=== PATIENT | male | born 1955 | race Hispanic/Latino ===

== ENCOUNTER 2018-02-08 07:29 | Emergency (ER) | payer BC ==
[~2018-02-08] VITALS: Ht 170.2 cm; Wt 104.3 kg
[~2018-02-08 07:29] MED LIST: GABAPENTIN300 MG PO; IBUPROFEN PO; LISINOPRIL10 MG PO; LOVASTATIN40 MG PO; NAPROXEN500 MG PO; NORCO 7.5-3251 EACH PEG; OMEPRAZOLE MAGN20 MG PO; TAMSULOSIN HCL0.4 MG PO; TESTOSTERO200 MG/1 M IM; ZIOPTAN 0.00151 EACH OU
[2018-02-08 08:38] LABS: BASOPHILS % 0.2 % (0.0-1.0); EOSINOPHILS # (AUTO) 0.2 (0.0-0.4); EOSINOPHILS % 2.7 % (0.0-6.0); HEMATOCRIT 38.7 % (38.2-49.6); HEMOGLOBIN 13.6 g/dL (14.0-18.0); LYMPHOCYTES # (AUTO) 2.4 (1.0-3.2); LYMPHOCYTES % 27.3 % (18.0-39.1); MEAN CORPUSCULAR HEMOGLOBIN 30.6 pg (28-32); MEAN CORPUSCULAR HGB CONC 35.1 g/dL (31-35); MEAN CORPUSCULAR VOLUME 87.2 fL (81-99); MONOCYTES # (AUTO) 0.6 (0.2-0.8); MONOCYTES % 7.2 % (4.4-11.3); NEUTROPHILS # (AUTO) 5.5 (2.1-6.9); NEUTROPHILS % 62.1 % (38.7-80.0); PLATELET COUNT 170 x10e3/uL (140-360); RED BLOOD COUNT 4.44 x10e6/uL (4.3-5.7); RED CELL DISTRIBUTION WIDTH 12.9 % (11.7-14.4)
[2018-02-08 08:48] LABS: ALANINE AMINOTRANSFERASE 23 IU/L (0-55); ALBUMIN 3.7 g/dL (3.5-5.0); ALBUMIN/GLOBULIN RATIO 1.1 (0.8-2.0); ALKALINE PHOSPHATASE 73 IU/L (40-150); AMYLASE 27 U/L (25-125); ANION GAP 10.9 mmol/L (8-16); BLOOD UREA NITROGEN 18 mg/dL (7-26); BUN/CREATININE RATIO 16 (6-25); CALCIUM 9.3 mg/dL (8.4-10.2); CARBON DIOXIDE 26 mmol/L (22-29); CHLORIDE 103 mmol/L (98-107); CREATINE KINASE 146 IU/L (30-200); EST GLOMERULAR FILTRATION RATE > 60 ML/MIN (60-); GLUCOSE 120 mg/dL (74-118); LIPASE 14 U/L (8-78); POTASSIUM 3.9 mmol/L (3.5-5.1); SODIUM 136 mmol/L (136-145)
[2018-02-08 08:52] LABS: CLARITY,URINE CLEAR (CLEAR); COLOR,URINE YELLOW (YELLOW); KETONES,URINE NEGATIVE (NEGATIVE); LEUKOCYTE ESTERASE ,URINE NEGATIVE (NEGATIVE); NITRITE,URINE NEGATIVE (NEGATIVE); PROTEIN,URINE DIPSTICK NEGATIVE (NEGATIVE); URINE UROBILINOGEN 0.2 mg/dL (0.2 - 1)
[2018-02-08 08:53] LABS: BILIRUBIN,URINE NEGATIVE (NEGATIVE); EPITHELIAL CELLS,URINE FEW /LPF; WBC,URINE (MAN) 0-5 /HPF (0-5)
[2018-02-08 11:19] VITALS: BP 126/59
--- NOTE | 2018-02-08 11:27 | Diagnostic Imaging Report ---
HISTORY: Right upper quadrant pain TECHNIQUE: Selected images from limited abdominal ultrasound provided for INTERPRETATION: COMPARISON: None. FINDINGS: Pancreas: Visualized portions are normal. No ductal dilatation. Liver: Measures 15.0 cm in sagittal dimension. The echotexture is increased. No mass in the visualized portions. Portal Vein: Patent with hepatopetal flow on spectral Doppler interrogation.. Biliary Tree: No intrahepatic dilatation. Gallbladder: No evidence of gallstone, polyp or gallbladder wall thickening. CBD: 0.4 cm. Right Kidney: 11.3 cm in greatest length. The echotexture is normal. There is no evidence for mass. There is no collecting system dilatation or evidence of obstruction. No renal calculi evident. No adjacent free fluid or fluid collections. Visualized IVC and aorta are normal. There is no free fluid. IMPRESSION: 1. Increased hepatic echotexture suggestive of hepatocellular dysfunction, most commonly steatosis. 2. Normal gallbladder and biliary tree. Signed by: Dr. René Khan MD on 02/08/2018 11:24 AM
== END 2018-02-08 11:51 | disposition home or self-care (01) ==
LOC: ER 07:29
DX: R10.11 Right upper quadrant pain (principal); R10.13 Epigastric pain; R11.0 Nausea; I10 Essential (primary) hypertension; E78.5 Hyperlipidemia, unspecified; K21.9 Gastro-esophageal reflux disease without esophagitis
CPT/HCPCS: 36415; 76705; 80053; 81001; 82150; 82550; 82553; 83690; 84484; 85025; 94760; 99284

== ENCOUNTER 2020-04-29 23:22 | Emergency (ER) | payer BC, MEDICARE ==
[~2020-04-29] VITALS: Ht 167.6 cm; Wt 104.3 kg
--- NOTE | 2020-04-30 00:27 | Emergency Department Note ---
History of Present Illnes History of Present Illness Chief Complaint: COVID PUI History of Present Illness This is a 65 year old male REPORTS DX'D WITH COVID 19 AT [facility] TODAY, PT WITH C/O GENERALIZED BODY ACHES, COUGH, FEVER; RESP ARE EVEN AND UNLABORED, O2 SAT RA 96% . STATES HE WAS TOLD TO GO TO ER BY PERSON WHO CALLED HIM WITH HIS POSITIVE COVID 19 TEST. Historian: Patient Arrival Mode: Car Onset (how long ago): day(s) (7) Location: ALL OVER Quality: FEVER, CHILLS, BODY ACHES, COUGH, POSITIVE COVID 19 TEST Radiation: Reports non-radiation Severity: mild Onset quality: gradual Duration (how long): day(s) (7) Timing of current episode: constant Progression: unchanged Chronicity: new Context: Reports recent illness (TESTED POSITIVE FOR COVID, JUST GOT THE RESULTS) Relieving factors: none Exacerbating factors: none Associated symptoms: Reports cough, Reports fever/chills, Reports shortness of breath Treatments prior to arrival: none Past Medical/Family History Physician Review I have reviewed the patient's past medical and family history. Any updates have been documented here. Past Medical History Recent Fever: Yes Clinical Suspicion of Infectio: Yes New/Unexplained Change in Ment: No Past Medical History: Hypertension, GERD Other Medical History: URINARY URGENCY Past Surgical History: None Social History Smoking Cessation: Never Smoker Alcohol Use: None Physically hurt or threatened: No Family History Family history of heart diseas: No Other Last Tetanus: UNK Review of Systems Review of Systems Constitutional: Reports as per HPI EENTM: Reports no symptoms Cardiovascular: Reports no symptoms Respiratory: Reports as per HPI Gastrointestinal: Reports no symptoms Genitourinary: Reports no symptoms Musculoskeletal: Reports no symptoms Integumentary: Reports no symptoms Neurological: Reports no symptoms Psychological: Reports no symptoms Endocrine: Reports no symptoms Hematological/Lymphatic: Reports no symptoms Physical Exam Related Data Allergies: Coded Allergies: No Known Allergies (Unverified , 09/04/16) Triage Vital Signs Vital Signs Date Time Temp Pulse Resp B/P (MAP) Pulse Ox O2 Delivery O2 Flow Rate FiO2 04/30/20 00:00 99.4 64 17 110/52 96 Room Air Vital signs reviewed: Yes Physical Exam CONSTITUTIONAL Constitutional: Present well-developed, Present well-nourished HENT HENT: Present normocephalic, Present atraumatic, Present oropharynx clear /moist, Present nose normal HENT L/R: Present left ext ear normal, Present right ext ear normal EYES Eyes: Reports PERRL, Reports conjunctivae normal NECK Neck: Present ROM normal PULMONARY Pulmonary: Present effort normal, Present rhonchi (MILD AT BASES BILATERAL) CARDIOVASCULAR Cardiovascular: Present regular rhythm, Present heart sounds normal, Present capillary refill normal, Present normal rate GASTROINTESTINAL Abdominal: Present soft, Present nontender, Present bowel sounds normal GENITOURINARY Genitourinary: Present exam deferred SKIN Skin: Present warm, Present dry MUSCULOSKELETAL Musculoskeletal: Present ROM normal NEUROLOGICAL Neurological: Present alert, Present oriented x 3, Present no gross motor or sensory deficits PSYCHOLOGICAL Psychological: Present mood/affect normal, Present judgement normal Assessment & Plan Medical Decision Making [facility] PT WITH COVID 19 PT NOT IN RESPIRATORY DISTRESS, OXYGEN SATURATION 96% ON ROOM AIR PT DISCHARGED WITH ZPAK, INSTRUCTIONS TO SLEEP AND LAY ON SIDE OR STOMACH, NOT BACK INSTRUCTED TO RETURN IF SYMPTOMS GET WORSE Assessment & Plan Final Impression: (1) COVID-19 Depart Disposition: HOME, SELF-CARE Last Vital Signs Date Time Temp Pulse Resp B/P (MAP) Pulse Ox O2 Delivery O2 Flow Rate FiO2 04/30/20 00:00 99.4 64 17 110/52 96 Room Air Home Meds Reported Medications Hydrocodone Bit/Acetaminophen (NORCO 7.5-325 TABLET) 1 Each Tablet, 1-2 EA PEG Q6H PRN for PAIN, TAB 09/06/16 Lovastatin (LOVASTATIN) 40 Mg Tablet, 40 MG PO DAILY THERAPEUTICALLY SUBSTITUTED WITH SIMVASTATIN 20MG 09/04/16 Naproxen (NAPROXEN) 500 Mg Tablet, 500 MG PO BID 09/04/16 Testosterone Cypionate (TESTOSTERONE CYPIONATE) 200 Mg/1 Ml Vial, IM MONTHLY 09/04/16 Tamsulosin Hcl (TAMSULOSIN HCL) 0.4 Mg Cap.er.24h, 0.4 MG PO DAILY 09/04/16 Tafluprost/Pf (ZIOPTAN 0.0015% EYE DROPS) 1 Each Droperette, OU HS 09/04/16 Omeprazole Magnesium (OMEPRAZOLE MAGNESIUM) 20 Mg Capsule.dr, 20 MG PO DAILY 09/04/16 Lisinopril (LISINOPRIL) 10 Mg Tablet, 10 MG PO DAILY, #30 TAB 09/04/16 [Ibuprofen] No Conflict Check, 800 MG PO TID PRN for PAIN 09/04/16 Gabapentin (GABAPENTIN) 300 Mg Capsule, 300 MG PO TID, #60 CAP 09/04/16 LEELEE MARTINEZ MD Apr 30, 2020 00:27
== END 2020-04-30 00:30 | disposition home or self-care (01) ==
LOC: ER 23:50
DX: U07.1 COVID-19 (principal); R50.9 Fever, unspecified; R05 Cough; I10 Essential (primary) hypertension; K21.9 Gastro-esophageal reflux disease without esophagitis
CPT/HCPCS: 99282

== ENCOUNTER 2020-05-03 07:34 | Inpatient (IN) | payer MEDICARE, OTHER ==
[~2020-05-03] VITALS: Ht 167.6 cm; Wt 112.5 kg
[2020-05-03] MEDS ORDERED: CEFTRIAXONE SOD 1 GM/NS 50 ML 50 ML IV SCH (08:00)
[2020-05-03 08:25] LABS: BASOPHILS # (AUTO) 0.1 (0.0-0.1); BASOPHILS % 0.3 % (0.0-1.0); EOSINOPHILS # (AUTO) 0.1 (0.0-0.4); EOSINOPHILS % 0.3 % (0.0-6.0); HEMATOCRIT 40.6 % (38.2-49.6); HEMOGLOBIN 13.7 g/dL (14.0-18.0); LYMPHOCYTES # (AUTO) 1.3 (1.0-3.2); LYMPHOCYTES % 6.2 % (18.0-39.1); MEAN CORPUSCULAR HEMOGLOBIN 29.8 pg (28-32); MEAN CORPUSCULAR HGB CONC 33.7 g/dL (31-35); MEAN CORPUSCULAR VOLUME 88.3 fL (81-99); MONOCYTES # (AUTO) 1.2 (0.2-0.8); MONOCYTES % 5.7 % (4.4-11.3); NEUTROPHILS # (AUTO) 18.5 (2.1-6.9); NEUTROPHILS % 84.8 % (38.7-80.0); PLATELET COUNT 286 x10e3/uL (140-360); RED CELL DISTRIBUTION WIDTH 13.2 % (11.7-14.4)
[2020-05-03 08:53] LABS: ALBUMIN 3.1 g/dL (3.5-5.0); ALBUMIN/GLOBULIN RATIO 0.7 (0.8-2.0); ANION GAP 20.7 mmol/L (8-16); CALCIUM 8.4 mg/dL (8.4-10.2); CREATININE, SERUM 1.48 mg/dL (0.72-1.25); POTASSIUM 3.7 mmol/L (3.5-5.1)
[2020-05-03 09:02] LABS: CREATINE KINASE MB 2.3 ng/mL (0-5.0)
[2020-05-03 09:07] LABS: INR 1.46; PROTHROMBIN TIME 18.7 seconds (11.9-14.5)
[2020-05-03 09:08] LABS: PARTIAL THROMBOPLASTIN TIME 30.9 seconds (23.8-35.5)
[2020-05-03] MEDS: AZITHROMYCIN 500MG/NS 250 ML 250 ML IV SCH (09:24)
--- NOTE | 2020-05-03 09:27 | Diagnostic Imaging Report ---
EXAMINATION: CHEST SINGLE (PORTABLE) INDICATION: Shortness of breath COMPARISON: None FINDINGS: LINES/TUBES:EKG leads overlie the chest. LUNGS:The lungs are moderately inflated. Diffuse bilateral hazy and patchy airspace opacities. PLEURA:No pleural effusion or pneumothorax. MEDIASTINUM:The cardiomediastinal silhouette appears normal in size and shape. BONES/SOFT TISSUES:No acute osseous injury. ABDOMEN:No free air under the diaphragm. IMPRESSION: Diffuse bilateral hazy and patchy airspace opacities compatible with pneumonia in the proper clinical setting. Signed by: Nicki Durham MD on 05/03/2020 9:24 AM
[2020-05-03] MEDS ORDERED: DEXAMETHASONE SOD PHOS 10 MG/1 ML VIAL IV ONE (09:30)
[2020-05-03] MEDS ORDERED: DEXAMETHASONE SOD PHOS 10 MG/1 ML VIAL ONE (12:36)
[2020-05-03] MEDS ORDERED: HYDRALAZINE HCL 20 MG/ML VIAL IV STA (12:40)
--- NOTE | 2020-05-03 13:01 | NUR ---
Non-rebreather placed over patient's vapotherm oxygen percentage now 98.
--- NOTE | 2020-05-03 14:48 | Emergency Department Note ---
History of Present Illnes History of Present Illness Chief Complaint: COVID PUI History of Present Illness This is a 65 year old male C/O SOB X 1 WEEK STATES HE'S ALREADY TESTED POSITIVE FOR COVID C/O MUSCLE ACHES, COUGH, CHILLS, FEVER. SOB X 2 DAYS WORSENING. SEEN BY DR VENCES PT SPO2 IN TRIAGE 72% TAKEN STRAIGHT TO ROOM 3. Historian: Patient Arrival Mode: Car [employer] Plant Supervisor Required: No Onset (how long ago): week(s) (1) Radiation: Reports non-radiation Severity: severe Onset quality: gradual Timing of current episode: constant Progression: worsening Chronicity: new Context: Denies recent illness Relieving factors: none Exacerbating factors: none Associated symptoms: Reports denies other symptoms Treatments prior to arrival: none Past Medical/Family History Physician Review I have reviewed the patient's past medical and family history. Any updates have been documented here. Past Medical History Recent Fever: Yes Clinical Suspicion of Infectio: Yes New/Unexplained Change in Ment: No Past Medical History: Hypertension, GERD, Hyperlipedemia Other Medical History: URINARY URGENCY Past Surgical History: None Social History Smoking Cessation: Never Smoker Counseling Performed: No Alcohol Use: None Any Illegal Drug Use: No TB Exposure/Symptoms: No Physically hurt or threatened: No Family History Family history of heart diseas: No Other Last Tetanus: UNK Any Pre-Existing Lines (PICC,: No Review of Systems Review of Systems Constitutional: Reports as per HPI EENTM: Reports no symptoms Cardiovascular: Reports no symptoms Respiratory: Reports as per HPI Gastrointestinal: Reports no symptoms Genitourinary: Reports no symptoms Musculoskeletal: Reports no symptoms Integumentary: Reports no symptoms Neurological: Reports no symptoms Psychological: Reports no symptoms Endocrine: Reports no symptoms Hematological/Lymphatic: Reports no symptoms Physical Exam Related Data Allergies: Coded Allergies: No Known Allergies (Unverified , 09/04/16) Triage Vital Signs Vital Signs Date Time Temp Pulse Resp B/P (MAP) Pulse Ox O2 Delivery O2 Flow Rate FiO2 05/03/20 07:49 98.8 83 32 147/56 83 Nasal Cannula 3.0 Vital signs reviewed: Yes Physical Exam CONSTITUTIONAL Constitutional: Present distressed HENT HENT: Present normocephalic, Present atraumatic, Present oropharynx clear/moist, Present nose normal HENT L/R: Present left ext ear normal, Present right ext ear normal EYES Eyes: Reports PERRL, Reports conjunctivae normal NECK Neck: Present ROM normal PULMONARY Pulmonary: Present respiratory distress, Present other (DECR BS'S BASES) CARDIOVASCULAR Cardiovascular: Present regular rhythm, Present heart sounds normal, Present capillary refill normal, Present tachycardia GASTROINTESTINAL Abdominal: Present soft, Present nontender, Present bowel sounds normal GENITOURINARY Genitourinary: Present exam deferred SKIN Skin: Present warm, Present dry MUSCULOSKELETAL Musculoskeletal: Present ROM normal NEUROLOGICAL Neurological: Present alert, Present oriented x 3, Present no gross motor or sensory deficits PSYCHOLOGICAL Psychological: Present mood/affect normal, Present judgement normal Results Laboratory Result Diagram: 05/03/20 0802 05/03/20 0802 Laboratory Laboratory Tests Test 05/03/20 08:40 05/03/20 08:02 White Blood Count 21.75 x10e3/uL (4.8-10.8) Red Blood Count 4.60 x10e6/uL (4.3-5.7) Hemoglobin 13.7 g/dL (14.0-18.0) Hematocrit 40.6 % (38.2-49.6) Mean Corpuscular Volume 88.3 fL (81-99) Mean Corpuscular Hemoglobin 29.8 pg (28-32) Mean Corpuscular Hemoglobin Concent 33.7 g/dL (31-35) Red Cell Distribution Width 13.2 % (11.7-14.4) Platelet Count 286 x10e3/uL (140-360) Neutrophils (%) (Auto) 84.8 % (38.7-80.0) Lymphocytes (%) (Auto) 6.2 % (18.0-39.1) Monocytes (%) (Auto) 5.7 % (4.4-11.3) Eosinophils (%) (Auto) 0.3 % (0.0-6.0) Basophils (%) (Auto) 0.3 % (0.0-1.0) Neutrophils # (Auto) 18.5 (2.1-6.9) Lymphocytes # (Auto) 1.3 (1.0-3.2) Monocytes # (Auto) 1.2 (0.2-0.8) Eosinophils # (Auto) 0.1 (0.0-0.4) Basophils # (Auto) 0.1 (0.0-0.1) Absolute Immature Granulocyte (auto 0.58 x10e3/uL (0-0.1) Prothrombin Time 18.7 seconds (11.9-14.5) Prothromb Time International Ratio 1.46 Activated Partial Thromboplast Time 30.9 seconds (23.8-35.5) Sodium Level 138 mmol/L (136-145) Potassium Level 3.7 mmol/L (3.5-5.1) Chloride Level 101 mmol/L (98-107) Carbon Dioxide Level 20 mmol/L (22-29) Anion Gap 20.7 mmol/L (8-16) Blood Urea Nitrogen 35 mg/dL (7-26) Creatinine 1.48 mg/dL (0.72-1.25) Estimat Glomerular Filtration Rate 48 ML/MIN (60-) BUN/Creatinine Ratio 24 (6-25) Glucose Level 151 mg/dL (74-118) Calcium Level 8.4 mg/dL (8.4-10.2) Total Bilirubin 0.7 mg/dL (0.2-1.2) Aspartate Amino Transf (AST/SGOT) 61 IU/L (5-34) Alanine Aminotransferase (ALT/SGPT) 40 IU/L (0-55) Alkaline Phosphatase 56 IU/L (40-150) Creatine Kinase 183 IU/L (30-200) Creatine Kinase MB 2.30 ng/mL (0-5.0) Troponin I 0.020 ng/mL (0-0.300) B-Type Natriuretic Peptide 137.9 pg/mL (0-100) Total Protein 7.6 g/dL (6.5-8.1) Albumin 3.1 g/dL (3.5-5.0) Globulin 4.5 g/dL (2.3-3.5) Albumin/Globulin Ratio 0.7 (0.8-2.0) Lab results reviewed: Yes Imaging Imaging results reviewed: Yes Impressions EXAMINATION: CHEST SINGLE (PORTABLE) INDICATION: Shortness of breath COMPARISON: None FINDINGS: LINES/TUBES:EKG leads overlie the chest. LUNGS:The lungs are moderately inflated. Diffuse bilateral hazy and patchy airspace opacities. PLEURA:No pleural effusion or pneumothorax. MEDIASTINUM:The cardiomediastinal silhouette appears normal in size and shape. BONES/SOFT TISSUES:No acute osseous injury. ABDOMEN:No free air under the diaphragm. IMPRESSION: Diffuse bilateral hazy and patchy airspace opacities compatible with pneumonia in the proper clinical setting. Signed by: Nicki Durham MD on 05/03/2020 9:24 AM Procedures 12 Lead ECG Interpretation ECG Interpretation : ECG: ECG 1 Gelatin Plant Supervisor: Interpreted by ED physician Date: May 03, 2020 Time: 07:56 Rhythm: sinus rhythm Rate: normal (72) QRS axis: normal Conduction: intraventricular conduction delay ST segments normal: Yes T waves normal: Yes Clinical Impression: normal ECG Critical Care Time Total Critical Care Time (min): 30 Critical care time exclusive o: separately billable procedures Critcal care necessary due to: respiratory failure Critcal care time spent by me: discussion w consultants, discussion w primary provider, evaluation patient response to tx, order/perform tx or interventions, order/review laboratory studies, order/review radiographic studies, pulse oximetry, re-evaluation of patient condition Assessment & Plan Medical Decision Making MDM CBC, CHEM, CARDIACS, COVID, CX'S, CXR - R/O COVID/PNEUMONIA, STEMI/NSTEMI, RENAL INSUFF Assessment & Plan Final Impression: (1) Pneumonia due to COVID-19 virus (2) Hypoxia Depart Disposition: ADMITTED Last Vital Signs Date Time Temp Pulse Resp B/P (MAP) Pulse Ox O2 Delivery O2 Flow Rate FiO2 05/03/20 12:50 182/90 05/03/20 12:45 67 35 90 05/03/20 12:36 40.0 05/03/20 08:46 98.7 05/03/20 07:49 Nasal Cannula Home Meds Reported Medications Hydrocodone Bit/Acetaminophen (NORCO 7.5-325 TABLET) 1 Each Tablet, 1-2 EA PEG Q6H PRN for PAIN, TAB 09/06/16 Lovastatin (LOVASTATIN) 40 Mg Tablet, 40 MG PO DAILY THERAPEUTICALLY SUBSTITUTED WITH SIMVASTATIN 20MG 09/04/16 Naproxen (NAPROXEN) 500 Mg Tablet, 500 MG PO BID 09/04/16 Testosterone Cypionate (TESTOSTERONE CYPIONATE) 200 Mg/1 Ml Vial, IM MONTHLY 09/04/16 Tamsulosin Hcl (TAMSULOSIN HCL) 0.4 Mg Cap.er.24h, 0.4 MG PO DAILY 09/04/16 Tafluprost/Pf (ZIOPTAN 0.0015% EYE DROPS) 1 Each Droperette, OU HS 09/04/16 Omeprazole Magnesium (OMEPRAZOLE MAGNESIUM) 20 Mg Capsule.dr, 20 MG PO DAILY 09/04/16 Lisinopril (LISINOPRIL) 10 Mg Tablet, 10 MG PO DAILY, #30 TAB 09/04/16 [Ibuprofen] No Conflict Check, 800 MG PO TID PRN for PAIN 09/04/16 Gabapentin (GABAPENTIN) 300 Mg Capsule, 300 MG PO TID, #60 CAP 09/04/16 Medications in the ED Ceftriaxone Sodium 50 ml @ 100 mls/hr Q24H IV Last administered on 05/03/20at 09:23; Admin Dose 100 MLS/HR; Start 05/03/20 at 08:00; Stop 05/10/20 at 07:59 Azithromycin 250 ml @ 250 mls/hr Q24H IV Last administered on 05/03/20at 09:24; Admin Dose 250 MLS/HR; Start 05/03/20 at 08:30; Stop 05/10/20 at 08:29 Dexamethasone Sodium Phosphate 10 mg ONCE ONCE IV Last administered on 05/03/20at 12:35; Admin Dose 10 MG; Start 05/03/20 at 09:30; Stop 05/03/20 at 10:11; Status DC Dexamethasone Sodium Phosphate 10 mg STK-MED ONCE .ROUTE ; Start 05/03/20 at 12:36; Stop 05/03/20 at 12:30; Status DC Hydralazine HCl 10 mg NOW STAT IV Last administered on 05/03/20at 12:50; Admin Dose 10 MG; Start 05/03/20 at 12:40; Stop 05/03/20 at 12:46; Status DC NIKHIL VENCES MD May 03, 2020 14:48
[2020-05-03] MEDS ORDERED: SODIUM CHLORIDE 0.9% 1000ML 1,000 ML IV SCH (15:30)
[2020-05-03] MEDS: ENOXAPARIN SOD INJ 40 MG/0.4 ML SYR SC SCH (16:30)
[2020-05-03] MEDS ORDERED: ALBUTEROL SULFATE HFA 8GM INHALATION AEROSOL INH PRN (18:15)
--- NOTE | 2020-05-03 18:49 | NUR ---
REPORT GIVEN TO ALVIN ROCK
--- NOTE | 2020-05-03 19:25 | Consultation ---
DATE OF CONSULTATION: 05/03/2020 PULMONARY CRITICAL CARE CONSULTATION: CHIEF COMPLAINT: Dyspnea and fevers. HISTORY OF PRESENT ILLNESS: The patient is a 65-year-old man. He reports a history of difficulty breathing and chest congestion. He has noted some fevers as well. He has a cough. He came to the emergency department and was found to have bilateral pulmonary infiltrates and nasal swab suggestive of COVID. PAST MEDICAL HISTORY: 1. Prostatic hypertrophy. 2. Hypertension. 3. No prior asthma. 4. No prior cardiac problems. 5. No prior diabetes. ALLERGIES: THERE ARE NO KNOWN DRUG ALLERGIES. SOCIAL HISTORY: The patient is not a smoker. He has never been a drinker. REVIEW OF SYSTEMS: He reports some fevers. He has some malaise. He has no headache. There is no neck pain. He has no chest pain. There is some dyspnea. He has some cough. There is no abdominal pain. He has no nausea or vomiting. He has no leg edema. PHYSICAL EXAMINATION: VITAL SIGNS: The patient is afebrile. The blood pressure is 176/81 and the pulse is 65. Respiratory rate is in the 30s. Oxygen saturation is 95%. He is on a Vapotherm with 40 L and 100%. HEENT: Shows no facial swelling or erythema. CARDIAC: Reveals regular rate and rhythm with normal S1 and S2. LUNGS: Auscultation of lungs reveals crackles and rhonchi bilaterally. There is no wheezing. ABDOMEN: Soft and nontender. There is no rebound or guarding. EXTREMITIES: Shows no leg edema or calf tenderness. There is no cyanosis or clubbing. SKIN: Shows no rashes. NEUROLOGIC: Shows no focal abnormalities. LABORATORY DATA: White blood cell count is 21.7 and hemoglobin is 13.7. The platelet count is 286. BUN to creatinine ratio is 35 to 1.48 and the carbon dioxide is 20. Anion gap is increased to 20.7. The blood sugar is 151. The albumin is 3.1. RADIOGRAPHIC DATA: Chest x-ray shows bilateral infiltrates, suggestive of COVID pneumonia. IMPRESSION: 1. Acute respiratory failure. 2. Viral pneumonia and COVID-19. 3. Acute kidney injury. 4. Anion gap acidosis. 5. Prostatic hypertrophy. 6. Hypertension. PLAN: 1. Judicious use of IV fluids. 2. Dexamethasone 6 mg daily. 3. Antibiotics to cover for superimposed bacterial pneumonia. 4. Lovenox. 5. Albuterol inhaler. 6. Monitor renal function. MD FRANCES Mae/MODL /[id number]
[2020-05-03 19:40] LABS: CREATINE KINASE MB 1.5 ng/mL (0-5.0)
--- NOTE | 2020-05-03 20:21 | Consultation ---
DATE OF CONSULTATION: 05/03/2020 HISTORY OF PRESENT ILLNESS: Mr. Bob is a 65-year-old male, who comes to the emergency room with shortness of breath and cough for a week. He was positive for COVID-19. He also has just muscle aches and pain and cough. The patient comes in because he was not feeling well. His O2 saturation was 72%. He was admitted and started on oxygen. He is feeling better now. The patient, who is currently on 15 L. The patient is telling me he has been sick for 2 weeks before he came here. PAST MEDICAL HISTORY: He denies. PAST SURGICAL HISTORY: He denies. ALLERGIES: NKA. SOCIAL HISTORY: There is no smoking, drug abuse, or alcohol abuse. PHYSICAL EXAMINATION: GENERAL: Currently alert and oriented. Does not seem to be in acute distress. VITAL SIGNS: Stable, currently afebrile. HEENT: He is not icteric. NECK: Supple. CHEST: Crackles bilateral. IMPRESSION: COVID-19, concerned superimposed bacterial pneumonia. We will put him on Rocephin 1 g daily for 5 days, azithromycin 500 mg daily for 3 days, Decadron 6 mg daily, oxygen as needed. Decadron will be for 10 days. We will also give him Lovenox 0.5 mg/kg q.12 hours. q.12. It is too late for remdesivir and convalescent plasma. We will follow. MD JOSE Garay/MIKE /[id number]
[2020-05-03] MEDS ORDERED: GABAPENTIN 300 MG CAP PO SCH (21:00)
[2020-05-03] MEDS ORDERED: ZOLPIDEM TARTRATE 5 MG TAB PO PRN (21:00)
[2020-05-03] MEDS: MEROPENEM 1GM 100 ML IV SCH (21:36)
[2020-05-03] MEDS: GABAPENTIN 100 MG CAP PO SCH (21:36)
--- NOTE | 2020-05-04 01:07 | History and Physical ---
PRIMARY CARE DOCTOR: Beau Mcknight MD. CHIEF COMPLAINT: Shortness of breath. HISTORY OF PRESENT ILLNESS: This is a 65-year-old male, who has been sick for 2 weeks now. The patient has been coughing, not so much fever. Apparently, the is also coughing at home. However, today, the patient got more short of breath, therefore the patient presented to the emergency room. Denies chest pain. No nausea, vomiting. No diarrhea. PAST MEDICAL AND SURGICAL HISTORY: 1. Hypertension. 2. Hyperlipidemia. 3. Likely benign prostatic hypertrophy. MEDICATIONS: Please see medication reconciliation form. ALLERGIES: NONE. SOCIAL HISTORY: Does not smoke. FAMILY HISTORY: Diabetes. REVIEW OF SYSTEMS: A 10-point review of systems obtained and nothing else is significant other than what is stated in HPI. PHYSICAL EXAMINATION: VITAL SIGNS: Temperature 98.7, pulse 67, respiratory rate anywhere from 16-36, blood pressure 150/73. GENERAL: Some mild respiratory distress. SKIN: No rash. HEENT: Anicteric. Oropharynx is clear. LUNGS: Decreased. HEART: Regular rate and rhythm. Normal S1 and S2. GI: Abdomen is soft, nondistended. NEUROLOGIC: Alert and oriented x3. Cranial nerves II through XII grossly intact. PSYCHIATRIC: No hallucination. MUSCULOSKELETAL: Painless range of motion in joints. LABORATORY DATA: Laboratory [place], white count 21.75, hemoglobin 13.7, platelet count 286. INR is 1.46, PTT is 30.9, creatinine is 1.48. COVID-19 is positive. Chest x-ray is compatible with pneumonia. ASSESSMENT AND PLAN: 1. Coronavirus disease-2019 pneumonia with hypoxia. Consulted both Pulmonary and Infectious Disease. At this time, the patient will be on Remdesivir, Decadron, IV meropenem and IV azithromycin. We will continue to support him with oxygen. 2. Hypertension. Currently his blood pressure is acceptable. 3. Gastrointestinal and deep vein thrombosis prophylaxes. Lovenox 40 mg daily. Stacyching MD ASHWIN Jean-Baptiste/MIKE /[id number] cc: Beau Mcknight MD [facility]
[2020-05-04 06:50] LABS: BASOPHILS % 0.1 % (0.0-1.0); HEMATOCRIT 37.8 % (38.2-49.6); HEMOGLOBIN 12.9 g/dL (14.0-18.0); LYMPHOCYTES # (AUTO) 1.1 (1.0-3.2); LYMPHOCYTES % 6.7 % (18.0-39.1); MEAN CORPUSCULAR HEMOGLOBIN 30.6 pg (28-32); MEAN CORPUSCULAR HGB CONC 34.1 g/dL (31-35); MEAN CORPUSCULAR VOLUME 89.6 fL (81-99); MONOCYTES # (AUTO) 0.9 (0.2-0.8); MONOCYTES % 5.3 % (4.4-11.3); NEUTROPHILS # (AUTO) 14.3 (2.1-6.9); NEUTROPHILS % 84.9 % (38.7-80.0); PLATELET COUNT 253 x10e3/uL (140-360); RED BLOOD COUNT 4.22 x10e6/uL (4.3-5.7); RED CELL DISTRIBUTION WIDTH 13.2 % (11.7-14.4)
--- NOTE | 2020-05-04 07:14 | Diagnostic Imaging Report ---
Examination: Single AP view of the chest. COMPARISON: Portable chest 05/03/2020 INDICATION: Pneumonia, COVID + IMPRESSION: 1. Lines and Tubes: None 2. No interval change in diffuse bilateral interstitial and alveolar opacities, consistent with multifocal pneumonia. 3. Cardiomediastinal silhouette is normal. Pulmonary vasculature is normal. 4. No acute bony abnormalities. Signed by: Dr. Cabrera Roberson M.D. on 05/04/2020 7:11 AM
[2020-05-04 07:25] LABS: ALANINE AMINOTRANSFERASE 35 IU/L (0-55); ALBUMIN 2.7 g/dL (3.5-5.0); ALBUMIN/GLOBULIN RATIO 0.6 (0.8-2.0); ALKALINE PHOSPHATASE 55 IU/L (40-150); ANION GAP 14.3 mmol/L (8-16); BLOOD UREA NITROGEN 29 mg/dL (7-26); BUN/CREATININE RATIO 34 (6-25); CALCIUM 8.4 mg/dL (8.4-10.2); CARBON DIOXIDE 24 mmol/L (22-29); CHLORIDE 107 mmol/L (98-107); CREATININE, SERUM 0.85 mg/dL (0.72-1.25); EST GLOMERULAR FILTRATION RATE > 60 ML/MIN (60-); GLUCOSE 138 mg/dL (74-118); POTASSIUM 4.3 mmol/L (3.5-5.1); SODIUM 141 mmol/L (136-145)
[2020-05-04] MEDS: TAMSULOSIN HCL 0.4 MG CAP PO SCH (08:30)
[2020-05-04] MEDS: GABAPENTIN 100 MG CAP PO SCH ×3 (08:30→21:37)
[2020-05-04] MEDS: MEROPENEM 1GM 100 ML IV SCH ×2 (08:30→16:30)
[2020-05-04] MEDS ORDERED: SIMVASTATIN 20 MG TAB PO SCH (09:00)
[2020-05-04] MEDS: AZITHROMYCIN 500MG/NS 250 ML 250 ML IV SCH (09:30)
--- NOTE | 2020-05-04 10:02 | Progress Note ---
DATE: 05/04/2020 SUBJECTIVE: The patient is still on a Vapotherm with a non-rebreather. He notes some sore throat. He also complains of some headache. He does not have abdominal pain. He has no nausea or vomiting. PHYSICAL EXAMINATION: VITAL SIGNS: The blood pressure is 126/58 and saturation is 95%, his pulse is 50 to 60 and his respiratory rate is 30. HEENT: Shows no facial swelling or erythema. LYMPHATIC: Shows no submandibular, cervical, or supraclavicular adenopathy. CARDIAC: Reveals regular rate and rhythm with normal S1, S2. LUNGS: Auscultation of the lungs shows crackles in both lung vazquez. There is no wheezing. ABDOMEN: Soft and nontender. There is no rebound or guarding. EXTREMITIES: Shows no leg edema or calf tenderness. There is no cyanosis or clubbing. SKIN: Shows no rashes. NEUROLOGICAL: Shows no focal abnormalities. LABORATORY DATA: White blood cell count is 16.8 and hemoglobin is 12.9. The platelet count is 253. The BUN to creatinine ratio is 29 to 0.85. Other electrolytes are within normal limits. Albumin is 2.7. RADIOGRAPHIC DATA: Chest x-ray shows diffuse bilateral infiltrates. IMPRESSION: 1. Acute respiratory failure. 2. Viral pneumonia and COVID-19 infection. 3. Hepatic hypertrophy. 4. Acute kidney injury. 5. Hypertension. PLAN: 1. Continue current antibiotics. 2. Continue Vapotherm and non-rebreather. 3. Monitor blood sugars. 4. Lovenox. 5. Dexamethasone. Manuel Quigley MD [facility]/MODL /[id number]
[2020-05-04 10:28] LABS: CLARITY,URINE CLEAR (CLEAR); COLOR,URINE YELLOW (YELLOW)
[2020-05-04 10:29] LABS: BILIRUBIN,URINE NEGATIVE (NEGATIVE); LEUKOCYTE ESTERASE ,URINE NEGATIVE (NEGATIVE); NITRITE,URINE NEGATIVE (NEGATIVE); PROTEIN,URINE DIPSTICK NEGATIVE (NEGATIVE); URINE UROBILINOGEN 0.2 mg/dL (0.2 - 1)
[2020-05-04 10:41] LABS: BACTERIA,URINE FEW /HPF; EPITHELIAL CELLS,URINE RARE /LPF; RBC,URINE 0-5 /HPF (0-5); WBC,URINE (MAN) 0-5 /HPF (0-5)
[2020-05-04 11:17] LABS: KETONES,URINE NEGATIVE (NEGATIVE)
--- NOTE | 2020-05-04 13:00 | NUR ---
Spoke with patient's daughter who wanted an updated on patient's condition.
[2020-05-04] MEDS ORDERED: DEXAMETHASONE SOD PHOS 10 MG/1 ML VIAL IV SCH (14:00)
--- NOTE | 2020-05-04 14:20 | Progress Note ---
DATE: 05/04/2020 SUBJECTIVE: The patient is seen and evaluated in the ER. The patient is currently on Vapotherm 40 at 100% and also on non-rebreather. Clinically, seems to be alert and oriented, responds appropriate only, has improved. His saturation is between 93-97%, which seems to be improved from yesterday slightly or maybe no significant change. MEDICATIONS: Reviewed. From ID point of view, the patient is on Zithromax, Merrem, and Lovenox. LABORATORY STUDIES: White count of 6.82 down from 21.75, hemoglobin of 12.9 with a platelet 253. Sodium 141, potassium 4.3, and creatinine 0.85. Serology; coronavirus PCR detected on 05/03. MICROBIOLOGY: Blood culture negative so far. RADIOLOGY STUDIES: Chest x-ray from today showed no interval change in diffuse bilateral interstitial alveolar opacities consistent with multifocal pneumonia. PHYSICAL EXAMINATION: VITAL SIGNS: Temperature is 98.5, pulse is 52, respirations 33-24 with a blood pressure of 155/68. GENERAL: Alert and oriented, supine position in bed, obese with a BMI of 37.1. Oxygen supplement as mentioned above. CV: S1-S2. CHEST: Equal expansion. Decreased breath sounds. ABDOMEN: Soft, obese, nontender. HEENT: Moist. No pallor. No JVD. Extremities: Weak, moves all. ASSESSMENT AND PLAN: 1. Coronavirus disease-19 pneumonia. 2. Concern superimposed bacterial pneumonia. Continue with antibiotics, Rocephin changed to meropenem by Pulmonology, remains on Lovenox. We will add vitamin C and D. He remains on dexamethasone. Monitor the patient clinically. Follow with the labs. Further management of this patient is based on daily findings on laboratory and physical examination. Dictated by Nikolay Hicks PA-C (Al) Rocío Robertson MD /MODL /[id number]
[2020-05-04] MEDS: DEXAMETHASONE SOD PHOS INJ 4 MG/ML VIAL IV SCH (15:00)
[2020-05-04] MEDS: ENOXAPARIN SOD INJ 40 MG/0.4 ML SYR SC SCH (17:35)
--- NOTE | 2020-05-04 18:48 | NUR ---
report given to Harlan ROCK
--- NOTE | 2020-05-04 19:36 | NUR ---
PT RESTING WELL ON HOSPITAL BED, NAD; WOB REMAINS THE SAME, WITH SPO2 IN MID 90'S, PT REMAINS ON VAPOTHERM AT 40 AND 100% WITH NRB PLACED OVER THAT AT 15L; SKIN WARM/DRY, AFEBRILE; AWARE OF CURRENT POC AND BED STATUS; DENIES ANY C/O, CALL LIGHT IN REACH, WILL CONTINUE TO MONITOR.
[2020-05-04] MEDS: SIMVASTATIN 40 MG TAB PO SCH (21:37)
--- NOTE | 2020-05-04 21:41 | NUR ---
PT PRONEKathie AT THIS TIME, WILL CONTINUE TO MONITOR.
--- NOTE | 2020-05-04 23:57 | Progress Note ---
DATE: 05/04/2020 SUBJECTIVE: He feels his breathing is a little better. OBJECTIVE: VITAL SIGNS: Temperature 98.5, pulse 48, respiratory rate 33, blood pressure 135/83. GENERAL: No acute distress, SKIN: No rash. LUNGS: Decreased breath sounds. HEART: Bradycardic. Normal S1, S2. GI: Soft, nondistended. NEUROLOGIC: Alert and oriented x3. PSYCHIATRIC: No depression. LABORATORY DATA: Laboratory moctezuma, white count 16.8, hemoglobin 12.9, platelet count 253, creatinine 0.85. Troponins are all negative. Chest x-ray, no interval change. ASSESSMENT AND PLAN: 1. Acute respiratory failure due to coronavirus disease-2019 pneumonia. His white count is better. We will continue azithromycin, meropenem, Decadron per Pulmonary and Infectious Disease. 2. Acute kidney injury, resolved. 3. Gastrointestinal and deep vein thrombosis prophylaxes. Continue Lovenox. MD ASHWIN Chavez/MIKE /[id number]
[2020-05-05] MEDS: MEROPENEM 1GM 100 ML IV SCH ×4 (03:03→18:52)
[2020-05-05 05:55] LABS: BASOPHILS % 0.2 % (0.0-1.0); HEMOGLOBIN 13.4 g/dL (14.0-18.0); LYMPHOCYTES # (AUTO) 1.3 (1.0-3.2); LYMPHOCYTES % 6.7 % (18.0-39.1); MEAN CORPUSCULAR HEMOGLOBIN 31.5 pg (28-32); MEAN CORPUSCULAR HGB CONC 34.4 g/dL (31-35); MEAN CORPUSCULAR VOLUME 91.5 fL (81-99); MONOCYTES # (AUTO) 0.7 (0.2-0.8); MONOCYTES % 3.4 % (4.4-11.3); NEUTROPHILS # (AUTO) 16.5 (2.1-6.9); NEUTROPHILS % 85.7 % (38.7-80.0); PLATELET COUNT 258 x10e3/uL (140-360); RED BLOOD COUNT 4.26 x10e6/uL (4.3-5.7); RED CELL DISTRIBUTION WIDTH 13.3 % (11.7-14.4)
[2020-05-05 06:33] LABS: ALANINE AMINOTRANSFERASE 30 IU/L (0-55); ALBUMIN 2.7 g/dL (3.5-5.0); ALBUMIN/GLOBULIN RATIO 0.6 (0.8-2.0); ALKALINE PHOSPHATASE 70 IU/L (40-150); ANION GAP 12.6 mmol/L (8-16); BLOOD UREA NITROGEN 26 mg/dL (7-26); BUN/CREATININE RATIO 33 (6-25); CALCIUM 8.7 mg/dL (8.4-10.2); CARBON DIOXIDE 26 mmol/L (22-29); CHLORIDE 104 mmol/L (98-107); CREATININE, SERUM 0.79 mg/dL (0.72-1.25); EST GLOMERULAR FILTRATION RATE > 60 ML/MIN (60-); GLUCOSE 131 mg/dL (74-118); POTASSIUM 4.6 mmol/L (3.5-5.1); SODIUM 138 mmol/L (136-145)
--- NOTE | 2020-05-05 07:00 | NUR ---
REPORT TO SHWETA URBINA.
--- NOTE | 2020-05-05 07:33 | Diagnostic Imaging Report ---
Examination: Single AP view of the chest. COMPARISON: 05/04/2020 INDICATION: Shortness of breath, COVID IMPRESSION: 1. Lines and Tubes: None 2. No interval change in diffuse bilateral interstitial and alveolar opacities, consistent with multifocal pneumonia. 3. Cardiomediastinal silhouette is normal. Pulmonary vasculature is normal. 4. No acute bony abnormalities. Signed by: Dr. Cabrera Roberson M.D. on 05/05/2020 7:29 AM
[2020-05-05] MEDS: AZITHROMYCIN 500MG/NS 250 ML 250 ML IV SCH (08:45)
[2020-05-05] MEDS: TAMSULOSIN HCL 0.4 MG CAP PO SCH (10:55)
--- NOTE | 2020-05-05 11:23 | NUR ---
Pt placed in prone position, noted thick green sputum. Pt provided yankeur to suction sputum. Pt is currently on Vapotherm @ 40liters/100%
[2020-05-05] MEDS: GABAPENTIN 100 MG CAP PO SCH ×2 (15:35→18:52)
[2020-05-05] MEDS: DEXAMETHASONE SOD PHOS INJ 4 MG/ML VIAL IV SCH (15:35)
--- NOTE | 2020-05-05 16:31 | Progress Note ---
DATE: 05/05/2020 SUBJECTIVE: Mr. Bob remains in the ER holding. He seems to be doing good and he is in a prone position now. He is feeling better. MEDICATIONS: He is currently on Flomax, azithromycin, Zocor, Neurontin, Ventolin, Lovenox, dexamethasone, meropenem. LABORATORY DATA: His white count is 19.23 and hemoglobin 13. His sodium 138, potassium 4.6, and creatinine 0.79. PHYSICAL EXAMINATION: GENERAL: He is currently alert and oriented. VITAL SIGNS: Stable. Heart rate 51, respiration 33, blood pressure 158/78. HEENT: Not icteric. NECK: Supple. CHEST: Few crackles. HEART: S1 and S2. No S3, S4, or murmur. ABDOMEN: Soft. IMPRESSION: Respiratory failure and COVID-19, more than 2 weeks illness. PLAN: To continue as ordered. MD JOSE Garay/MIKE /[id number]
[2020-05-05] MEDS: ENOXAPARIN SOD INJ 40 MG/0.4 ML SYR SC SCH (18:52)
[2020-05-05] MEDS: SIMVASTATIN 40 MG TAB PO SCH (21:54)
--- NOTE | 2020-05-05 23:04 | Progress Note ---
DATE: 05/05/2020 SUBJECTIVE: The patient is afebrile. He still has some dyspnea and tachypnea. He remains on a Vapotherm with 40 L and 100%. He was seen by Cardiology. Apparently, he had a slightly decreased ejection fraction. PHYSICAL EXAMINATION: VITAL SIGNS: The blood pressure is 148/60, saturation is 97%, and the heart rate is 41. HEENT: Shows no facial swelling or erythema. CARDIAC: Reveals regular rate and rhythm with normal S1 and S2. LUNGS: Auscultation of lungs reveals rhonchorous breath sounds bilaterally. There is no wheezing. ABDOMEN: Soft and nontender. There is no rebound or guarding. EXTREMITIES: Shows no leg edema or calf tenderness. There is no cyanosis or clubbing. SKIN: Shows no rashes. NEUROLOGICAL: Shows no focal abnormalities. LABORATORY DATA: White blood cell count is 19.23 and the hemoglobin is 13.4. The platelet count is 258. BUN to creatinine ratio is normal. Other electrolytes are within normal limits and the albumin is 2.7. RADIOGRAPHIC DATA: Chest x-ray shows diffuse bilateral opacities. IMPRESSION: 1. Acute respiratory failure. 2. Viral pneumonia and COVID-19 infection. 3. Acute kidney injury. 4. Chronic systolic congestive heart failure. 5. Hypertension. PLAN: 1. Continue Vapotherm. 2. Continue current antibiotics. 3. Dexamethasone. 4. Lovenox. 5. Await further input from Cardiology. Manuel Quigley MD [facility]/MIKE /[id number]
--- NOTE | 2020-05-05 23:28 | Progress Note ---
DATE: 05/05/2020 SUBJECTIVE: Breathing is a little bit better. OBJECTIVE: VITAL SIGNS: Temperature 98.7, pulse 51, respiratory rate 34, blood pressure 148/60. GENERAL: No acute distress. SKIN: No rash. LUNGS: Decreased breath sounds. HEART: Bradycardiac. Normal S1, S2. GI: Abdomen is soft, nondistended. NEUROLOGIC: Alert and oriented x3. PSYCHIATRIC: No hallucination. LABORATORY DATA: Laboratory moctezuma, white count 19, hemoglobin 13, platelet count 258, creatinine 0.8. Chest x-ray is unchanged. ASSESSMENT AND PLAN: 1. Acute respiratory failure due to coronavirus disease-19 pneumonia. His leukocytosis is a little worse today and we will continue to monitor. We will continue azithromycin, meropenem, Decadron per Pulmonary and Infectious Disease specialist. 2. Acute kidney injury, resolved. 3. Persistent bradycardia. His TSH is unremarkable. We will consult Cardiology. 4. Gastrointestinal and deep vein thrombosis prophylaxis. We will continue Lovenox 40 mg daily. MD ASHWIN Chavez/MIKE /[id number]
[2020-05-06] VITALS (12 sets, daily range): BP systolic 113–155; BP diastolic 55–77
[2020-05-06] MEDS: GABAPENTIN 100 MG CAP PO SCH ×4 (00:18→21:15)
--- NOTE | 2020-05-06 00:59 | Consultation ---
DATE OF CONSULTATION: 05/05/2020 Cardiology Consultation Refering Physician: Nilton Botello CONSULTING PHYSICIAN: Dr. Mario Neumann, Interventional Cardiology. REASON FOR CONSULTATION: Bradycardia. HISTORY OF PRESENT ILLNESS: Mr. Bob is a 65-year-old pleasant gentleman with history of dyslipidemia, who presents with cough, fever, and shortness of breath. Tested positive for COVID-19. Acute respiratory distress, for which oxygen support, the patient got initiated as well as steroids treatment. The patient placed on Lovenox prophylaxis. He has noted some improvement since yesterday. He was noted to have on telemetry episodes of sinus bradycardia, which currently so far asymptomatic. His BNP is mildly elevated. An echocardiogram has been ordered today and is pending. REVIEW OF SYSTEMS: A 12-system reviewed and negative except for as noted above. ALLERGIES: NO KNOWN DRUG ALLERGIES. PAST MEDICAL HISTORY: As per HPI. SOCIAL HISTORY: Negative x3. FAMILY HISTORY: Noncontributory. PHYSICAL EXAMINATION: VITAL SIGNS: Heart rate 53, blood pressure 120/80, O2 saturation 93% on nasal cannula. BMI 37. GENERAL: No acute distress. Alert. NECK: No JVD. CHEST: Rales to bilateral bases. CARDIOVASCULAR: Regular rate and rhythm. Normal S1 and S2. ABDOMEN: Soft, nontender. Bowel sounds positive. EXTREMITIES: No edema. Warm distal extremities. CARDIOVASCULAR MEDICATIONS: Reviewed. Simvastatin and Lovenox. STUDIES: Reviewed. Creatinine 0.7. White blood cells 19, hemoglobin 13.4, and platelets 258. INR 1.4. AST 33, ALT 30. ASSESSMENT AND PLAN: A 65-year-old man with coronavirus disease 2019 pneumonia, presents with mildly elevated BNP, acute hypoxemic respiratory failure recommendations: Continue dexamethasone and Lovenox. Monitor asymptomatic bradycardia on telemetry. Obtain echocardiogram. Mario Harris MD [facility]/MIKE /[id number] MTDD
[2020-05-06] MEDS: MEROPENEM 1GM 100 ML IV SCH ×3 (03:00→19:01)
[2020-05-06 06:50] LABS: BASOPHILS # (AUTO) 0.1 (0.0-0.1); BASOPHILS % 0.3 % (0.0-1.0); HEMATOCRIT 40.2 % (38.2-49.6); HEMOGLOBIN 13.5 g/dL (14.0-18.0); LYMPHOCYTES # (AUTO) 1.3 (1.0-3.2); LYMPHOCYTES % 7.2 % (18.0-39.1); MEAN CORPUSCULAR HEMOGLOBIN 29.5 pg (28-32); MEAN CORPUSCULAR HGB CONC 33.6 g/dL (31-35); MEAN CORPUSCULAR VOLUME 87.8 fL (81-99); MONOCYTES # (AUTO) 0.6 (0.2-0.8); MONOCYTES % 3.3 % (4.4-11.3); NEUTROPHILS # (AUTO) 15.9 (2.1-6.9); NEUTROPHILS % 85.7 % (38.7-80.0); PLATELET COUNT 324 x10e3/uL (140-360); RED BLOOD COUNT 4.58 x10e6/uL (4.3-5.7); RED CELL DISTRIBUTION WIDTH 12.7 % (11.7-14.4)
[2020-05-06 07:38] LABS: ALANINE AMINOTRANSFERASE 25 IU/L (0-55); ALBUMIN 2.5 g/dL (3.5-5.0); ALBUMIN/GLOBULIN RATIO 0.6 (0.8-2.0); ALKALINE PHOSPHATASE 70 IU/L (40-150); ANION GAP 13.5 mmol/L (8-16); BLOOD UREA NITROGEN 25 mg/dL (7-26); BUN/CREATININE RATIO 35 (6-25); CALCIUM 8.6 mg/dL (8.4-10.2); CARBON DIOXIDE 25 mmol/L (22-29); CHLORIDE 105 mmol/L (98-107); CREATININE, SERUM 0.72 mg/dL (0.72-1.25); EST GLOMERULAR FILTRATION RATE > 60 ML/MIN (60-); GLUCOSE 95 mg/dL (74-118); POTASSIUM 4.5 mmol/L (3.5-5.1); SODIUM 139 mmol/L (136-145)
[2020-05-06] MEDS: AZITHROMYCIN 500MG/NS 250 ML 250 ML IV SCH (07:49)
[2020-05-06] MEDS: TAMSULOSIN HCL 0.4 MG CAP PO SCH (09:14)
--- NOTE | 2020-05-06 15:56 | Progress Note ---
DATE: 05/06/2020 SUBJECTIVE: Mr. Bob remains in intensive care unit. OBJECTIVE: HEENT: He is not icteric. NECK: Supple. CHEST: Clear. COR: S1, S2. ABDOMEN: Soft. LABORATORY DATA: White count 18.2. Sodium 139, creatinine 0.72, this is day #3. The patient is currently on meropenem, azithromycin, dexamethasone gabapentin, and Lovenox. IMPRESSION: COVID-19, respiratory failure, pneumonia community acquired. Echocardiogram has been ordered by Cardiology and followup. MD JOSE Garay/MODL /[id number]
--- NOTE | 2020-05-06 16:01 | Progress Note ---
DATE: 05/06/2020 SUBJECTIVE: The patient complains of being cold. He was seen by Cardiology. He remains on Vapotherm at 40 with 100% FiO2. He has a non-rebreather over the Vapotherm. PHYSICAL EXAMINATION: VITAL SIGNS: The blood pressure is 145/65. Saturation is 98%. The respiratory rate is 28. There is no facial swelling or erythema. CARDIAC: Regular rate and rhythm with normal S1, S2. LUNGS: Auscultation of lungs shows clear breath sounds bilaterally. There is no wheezing. ABDOMEN: Soft, nontender. There is no rebound or guarding. EXTREMITIES: No leg edema or calf tenderness. There is no cyanosis or clubbing. SKIN: No rashes. NEUROLOGICAL: No focal abnormalities. LABORATORY DATA: BUN to creatinine ratio is 25 to 0.72 and the other electrolytes are within normal limits. The albumin is 2.5. The white blood cell count is 18.5. Hemoglobin is 13.5. The platelet count is 324. IMPRESSION: 1. Acute respiratory failure. 2. Viral pneumonia and coronavirus disease-19 infection. 3. Chronic systolic congestive heart failure. 4. Hypertension. 5. Acute kidney injury. PLAN: 1. Continue Vapotherm. 2. Placed in prone position. 3. Complete dexamethasone. 4. Lovenox. 5. Complete antibiotics. Manuel Quigley MD [facility]/MODL /[id number]
[2020-05-06] MEDS: DEXAMETHASONE SOD PHOS INJ 4 MG/ML VIAL IV SCH (17:08)
[2020-05-06] MEDS: ENOXAPARIN SOD INJ 40 MG/0.4 ML SYR SC SCH (17:08)
--- NOTE | 2020-05-06 19:30 | NUR ---
Pt turned self into prone position at this time.
[2020-05-06] MEDS: SIMVASTATIN 40 MG TAB PO SCH (21:15)
[2020-05-07] VITALS (13 sets, daily range): BP systolic 100–157; BP diastolic 48–99
--- NOTE | 2020-05-07 00:06 | NUR ---
Pt turned himself to prone position again.
--- NOTE | 2020-05-07 01:07 | Progress Note ---
DATE: 05/06/2020 SUBJECTIVE: He feels a little bit more short of breath today. OBJECTIVE: VITAL SIGNS: Temperature 99.2, pulse 65, respiratory rate 31, and blood pressure 113/65. GENERAL: No acute distress. SKIN: No rash. LUNGS: Decreased breath sounds. HEART: Regular rate and rhythm. Normal S1, S2. GI: Abdomen is soft and nondistended. NEUROLOGIC: Alert and oriented x3. PSYCHIATRIC: No hallucination. LABORATORY DATA: Laboratory moctezuma, white count is 18, hemoglobin 13, platelet count 324, and creatinine 0.7. ASSESSMENT AND PLAN: 1. Acute respiratory failure due to COVID-19 pneumonia. We will continue to monitor his leukocytosis. We will continue azithromycin, meropenem, and Decadron per Pulmonary and Infectious Disease specialists. 2. Bradycardia, seemed to have resolved. Cardiology is on board. 3. Acute kidney injury, which has resolved. 4. Gastrointestinal and deep vein thrombosis prophylaxis. We will continue Lovenox 40 mg daily. MD ASHWIN Chavez/MIKE /[id number]
[2020-05-07] MEDS: MEROPENEM 1GM 100 ML IV SCH ×3 (02:10→17:34)
--- NOTE | 2020-05-07 02:13 | Progress Note ---
DATE: 05/06/2020 Cardiology Progress Note SUBJECTIVE: Shortness of breath, on non-rebreather face mask. Denies chest pain. OBJECTIVE: VITAL SIGNS: Temperature 99.1, heart rate 62, blood pressure 155/70, respiratory rate 31, O2 saturation 98%. BMI 35. GENERAL: No acute distress. Alert, active, on nonbreather face mass. NECK: No JVD. CHEST: With rales and decreased breath sounds. CARDIOVASCULAR: Regular rate and rhythm. Normal S1, S2. No S3 or S4. ABDOMEN: Soft. Bowel sounds positive. EXTREMITIES: No edema. MEDICATIONS: Cardiovascular medications reviewed: 1. Simvastatin. 2. Dexamethasone 6 mg daily. 3. Meropenem. 4. Azithromycin. 5. Lovenox 40 mg subcu daily. 6. Albuterol. STUDIES: Reviewed. Creatinine 0.7. White blood cells 18, hemoglobin 13, platelets 324. INR 1.4. ASSESSMENT AND PLAN: A 65-year-old man with coronavirus disease 2019 infection, community-acquired pneumonia, acute respiratory failure, hyperlipidemia, elevated BNP, sinus bradycardia on telemetry reviewed today, predominantly in sinus rhythm. Denies lightheadedness or syncope. Continue to monitor. 1. Continue dexamethasone and supportive care. 2. Echocardiogram with preserved left ventricular systolic function and impaired LV relaxation most consistent with alqho-yv-hbnxrgi diastolic heart failure component. Consider a trial of diuretics if x-ray worsens. MD CHRISTINE Bal/MIKE /[id number] MTDKathie
[2020-05-07] MEDS: AZITHROMYCIN 500MG/NS 250 ML 250 ML IV SCH (08:22)
[2020-05-07] MEDS: TAMSULOSIN HCL 0.4 MG CAP PO SCH (08:22)
[2020-05-07] MEDS: GABAPENTIN 100 MG CAP PO SCH ×3 (08:23→20:37)
--- NOTE | 2020-05-07 15:00 | Progress Note ---
DATE: 05/07/2020 SUBJECTIVE: The patient is afebrile. He remains on a Vapotherm at 40 L with 100% FiO2. His respiratory rate is in the mid 20s. His pulse is 50 to 55. OBJECTIVE: HEENT: Shows no facial swelling or erythema. CARDIAC: Reveals regular rate and rhythm with normal S1, S2. LUNGS: Auscultation of lungs reveals crackles at the bases. There is no wheezing. ABDOMEN: Soft, nontender. There is no rebound or guarding. EXTREMITIES: Shows no leg edema or calf tenderness. There is no cyanosis or clubbing. SKIN: Shows no rashes. NEUROLOGIC: Shows no focal abnormalities. LABORATORY DATA: White blood cell count is 18.5, hemoglobin is 13.5, and platelet count is 324. The BUN to creatinine ratio is normal. The other electrolytes are within normal limits. Albumin is 2.5. IMPRESSION: 1. Acute respiratory failure. 2. Viral pneumonia and COVID-19 infection. 3. Hypertension. 4. Acute kidney injury. PLAN: 1. Continue Vapotherm. 2. Complete dexamethasone. 3. Lovenox. 4. Continue antibiotics. Manuel Quigley MD [facility]/MODL /[id number]
[2020-05-07] MEDS: DEXAMETHASONE SOD PHOS INJ 4 MG/ML VIAL IV SCH (17:34)
[2020-05-07] MEDS: ENOXAPARIN SOD INJ 40 MG/0.4 ML SYR SC SCH (17:34)
[2020-05-07] MEDS: VANCOMYCIN 1GM/NS 250 ML 250 ML IV SCH (17:34)
--- NOTE | 2020-05-07 19:56 | Progress Note ---
DATE: 05/07/2020 Cardiology Progress Note SUBJECTIVE: Angus feels slightly more short of breath this afternoon. He is self-proning. He denies any chest discomfort. On telemetry, in sinus rhythm. OBJECTIVE: VITAL SIGNS: Temperature 98.6, heart rate 64, has had upon review telemetry reads as low as in 140s, O2 saturation 98%, and respiratory rate 30, on non-rebreather face mask, flow rate 40 L/minute. GENERAL: In no acute distress. Alert. Prone position. NECK: Supple. CHEST: With rales and decreased breath sounds. CARDIOVASCULAR: Regular rate and rhythm. Normal S1, S2. Distant heart sounds. ABDOMEN: Deferred as the patient is in prone position. EXTREMITIES: Warm. No edema. CARDIOVASCULAR MEDICATIONS: Reviewed. Lovenox 40 mg subcu daily, simvastatin 40 mg at bedtime, dexamethasone 6 mg daily. STUDIES: Reviewed. White blood cells 18.5, hemoglobin 13.5, and platelets 324. Sodium 139, potassium 4.5, chloride 105, bicarbonate 25, BUN 25, creatinine 0.7, glucose 95. Troponin I 0.013. BNP was mildly elevated at 137. TSH 0.2. Blood cultures, no growth after 72 hours. Chest x-ray with normal cardiomediastinal silhouette and pulmonary vasculature. Diffuse bilateral interstitial alveolar opacities consistent with multifocal pneumonia. Hemoglobin A1c was 6. ASSESSMENT AND PLAN: 1. A 65-year-old man with Coronavirus-19 infection, presenting with community-acquired pneumonia, acute respiratory failure, hyperlipidemia and elevated BNP, sinus bradycardia, asymptomatic. RECOMMEND: 1. Continue dexamethasone. 2. Continue to avoid chronotropic negative medications. 3. Continue statin therapy. 4. Preserved the left ventricular systolic function, LVEF 55% to 60% and moderate LVH, impaired LV relaxation, consistent with [id number] diastolic heart failure. Add Lasix to current regimen. Mario Harris MD [facility]/MODL /[id number]
[2020-05-07] MEDS: SIMVASTATIN 40 MG TAB PO SCH (20:37)
--- NOTE | 2020-05-07 23:02 | Progress Note ---
DATE: 05/07/2020 SUBJECTIVE: Breathing better. OBJECTIVE: VITAL SIGNS: Temperature 98.9, pulse 64, respiratory rate 36, blood pressure 131/99. SKIN: No rash. LUNGS: Decreased breath sounds. HEART: Regular rate and rhythm. Normal S1, S2. GI: Soft, nondistended. MUSCULOSKELETAL: Painless range of motion in joint. Neurologic: Alert and oriented x3. PSYCHIATRIC: No depression. LABORATORY DATA: Laboratory moctezuma, white count 18, creatinine 0.7. ASSESSMENT AND PLAN: 1. Acute respiratory failure due to coronavirus disease-19 pneumonia. We will continue azithromycin, meropenem, and Decadron per Pulmonary and Infectious Disease specialist. 2. Acute kidney injury, which is resolved. 3. Gastrointestinal and deep vein thrombosis prophylaxis. Continue Lovenox 40 mg daily. MD ASHWIN Chavez/MIKE /[id number]
[2020-05-08] VITALS (24 sets, daily range): BP systolic 93–166; BP diastolic 54–106
[2020-05-08] MEDS: MEROPENEM 1GM 100 ML IV SCH ×3 (02:18→16:43)
[2020-05-08] MEDS: VANCOMYCIN 1GM/NS 250 ML 250 ML IV SCH ×2 (03:26→13:29)
[2020-05-08 05:22] LABS: BASOPHILS % 0.2 % (0.0-1.0); HEMATOCRIT 37.3 % (38.2-49.6); HEMOGLOBIN 13.2 g/dL (14.0-18.0); LYMPHOCYTES # (AUTO) 0.8 (1.0-3.2); LYMPHOCYTES % 4.9 % (18.0-39.1); MEAN CORPUSCULAR HEMOGLOBIN 32.3 pg (28-32); MEAN CORPUSCULAR HGB CONC 35.4 g/dL (31-35); MEAN CORPUSCULAR VOLUME 91.2 fL (81-99); MONOCYTES # (AUTO) 0.4 (0.2-0.8); MONOCYTES % 2.7 % (4.4-11.3); NEUTROPHILS % 88.6 % (38.7-80.0); PLATELET COUNT 269 x10e3/uL (140-360); RED BLOOD COUNT 4.09 x10e6/uL (4.3-5.7)
[2020-05-08 06:09] LABS: ALANINE AMINOTRANSFERASE 19 IU/L (0-55); ALBUMIN 2.3 g/dL (3.5-5.0); ALBUMIN/GLOBULIN RATIO 0.5 (0.8-2.0); ANION GAP 14.7 mmol/L (8-16); BLOOD UREA NITROGEN 26 mg/dL (7-26); BUN/CREATININE RATIO 37 (6-25); CALCIUM 8.6 mg/dL (8.4-10.2); CARBON DIOXIDE 23 mmol/L (22-29); CHLORIDE 105 mmol/L (98-107); CREATININE, SERUM 0.71 mg/dL (0.72-1.25); EST GLOMERULAR FILTRATION RATE > 60 ML/MIN (60-); GLUCOSE 135 mg/dL (74-118); POTASSIUM 4.7 mmol/L (3.5-5.1); SODIUM 138 mmol/L (136-145)
[2020-05-08 06:41] LABS: ALKALINE PHOSPHATASE 60 IU/L (40-150)
--- NOTE | 2020-05-08 07:24 | Diagnostic Imaging Report ---
Examination: Single AP view of the chest. COMPARISON: Portable chest 05/05/2020 INDICATION: Shortness of breath, COVID IMPRESSION: 1. Lines and Tubes: None 2. No interval change in diffuse bilateral interstitial and alveolar opacities, consistent with multifocal pneumonia. Possible small right pleural effusion. 3. Cardiomediastinal silhouette is normal. Pulmonary vasculature is obscured. 4. No acute bony abnormalities. Signed by: Dr. Cabrera Roberson M.D. on 05/08/2020 7:20 AM
--- NOTE | 2020-05-08 07:34 | NUR ---
infectious disease progressnote Patient seen and examined chart viewed Lab data reviewed discussed with the intensive care discussed and medical team reathing better. OBJECTIVE: VITAL SIGNS: Temperature 98.9, pulse 64, respiratory rate 36, blood pressure 131/99. SKIN: No rash. HEENT within normal limit LUNGS: Decreased breath sounds. HEART: Regular rate and rhythm. Normal S1, S2. GI: Soft, nondistended.person present extremities no edema MUSCULOSKELETAL: Painless range of motion in joint. Neurologic: Alert and oriented x3. PSYCHIATRIC: No depression. LABORATORY DATA: Laboratory moctezuma, white count 18, creatinine 0.7. ASSESSMENT AND PLAN: 1. Acute respiratory failure due to coronavirus disease-19 pneumonia. We will continue azithromycin, meropenem, and Decadron per Pulmonary and Infectious Disease specialist. 2. Acute kidney injury, which is resolved. 3. Gastrointestinal and deep vein thrombosis prophylaxis. Continue Lovenox 40 mg daily. continue as ordered continue supportive care
[2020-05-08] MEDS: FUROSEMIDE INJ 10 MG/ML 2 ML VIAL IV SCH (08:34)
[2020-05-08] MEDS: GABAPENTIN 100 MG CAP PO SCH ×3 (08:34→21:01)
[2020-05-08] MEDS: TAMSULOSIN HCL 0.4 MG CAP PO SCH (08:34)
[2020-05-08] MEDS: AZITHROMYCIN 500MG/NS 250 ML 250 ML IV SCH (08:34)
[2020-05-08] MEDS: DEXAMETHASONE SOD PHOS INJ 4 MG/ML VIAL IV SCH (13:29)
--- NOTE | 2020-05-08 13:34 | Progress Note ---
DATE: 05/08/2020 Cardiology Progress Note SUBJECTIVE: Remains short of breath. OBJECTIVE: VITAL SIGNS: Temperature 97.9, heart rate 67, blood pressure 93/55, O2 saturation 96%, BMI 35. GENERAL: No acute distress. CHEST: Rales and decreased breath sounds. CARDIOVASCULAR: Regular rate and rhythm. Normal S1 and S2. ABDOMEN: Soft. EXTREMITIES: Trace edema. CARDIOVASCULAR MEDICATIONS: Reviewed. Lovenox, furosemide, simvastatin,, dexamethasone. STUDIES: Reviewed. Creatinine 0.7. White blood cells 15, hemoglobin 13, platelets 269. INR 1.4. AST 27, ALT 19. ASSESSMENT AND PLAN: COVID-19 infection, community-acquired pneumonia, acute respiratory failure, hypertension, acute on chronic diastolic heart failure. RECOMMEND: Continue diuretic therapy and current cardiovascular medications, holding parameters as needed for low blood pressure rate. MD CHRISTINE Bal/MIKE /[id number]
--- NOTE | 2020-05-08 15:14 | Progress Note ---
DATE: 05/08/2020 SUBJECTIVE: The patient is sitting in a chair. He remains on Vapotherm. He is on 40 L and 100%. PHYSICAL EXAMINATION: VITAL SIGNS: The patient is afebrile. The blood pressure is 127/60, saturation is 100%. HEENT: Shows no facial swelling or erythema. CARDIAC: Reveals regular rate and rhythm with normal S1 and S2. LUNGS: Auscultation of lungs reveals rhonchorous breath sounds bilaterally. There is no wheezing. ABDOMEN: Soft and nontender. There is no rebound or guarding. EXTREMITIES: Shows no leg edema or calf tenderness. There is no cyanosis or clubbing. SKIN: Shows no rashes. NEUROLOGICAL: Shows no focal abnormalities. LABORATORY DATA: White blood cell count is 15.7, hemoglobin is 13.2. The platelet count is 269. The BUN to creatinine ratio is 26 to 0.71. The other electrolytes are within normal limits. Albumin is 2.3. RADIOGRAPHIC DATA: Chest x-ray shows diffuse bilateral infiltrates. IMPRESSION: 1. Acute respiratory failure. 2. Viral pneumonia and COVID-19 infection. 3. Acute kidney injury. 4. Glaucoma. 5. Hypertension. PLAN: 1. Continue to wean Vapotherm and oxygen. 2. Restart medications for glaucoma. 3. Continue current antibiotics. 4. Complete course of dexamethasone. 5. Continue Lovenox. MD FRANCES Mae/SHIRLEYL /[id number]
[2020-05-08] MEDS: ENOXAPARIN SOD INJ 40 MG/0.4 ML SYR SC SCH (16:43)
[2020-05-08] MEDS: SIMVASTATIN 40 MG TAB PO SCH (21:01)
[2020-05-08] MEDS: LATANOPROST(OPTH) 2.5 ML BTL OP SCH (22:00)
[2020-05-09] VITALS (19 sets, daily range): BP systolic 90–167; BP diastolic 38–111
--- NOTE | 2020-05-09 00:06 | Progress Note ---
DATE: 05/08/2020 SUBJECTIVE: Breathing is stable. OBJECTIVE: VITAL SIGNS: Temperature 98.7, pulse 66, respiratory rate 32, blood pressure 124/60. GENERAL: No acute distress. SKIN: No rash. LUNGS: Decreased breath sounds. COR: Regular rate and rhythm. Normal S1, S2. GI: Abdomen is soft, nondistended. MUSCULOSKELETAL: Painless range of motion in joints. NEUROLOGIC: Alert and oriented x3. PSYCHIATRIC: No hallucination. LABORATORY DATA: Laboratory moctezuma, white count 15.78, hemoglobin 13, platelet count 269. Creatinine 0.7. ASSESSMENT/PLAN: 1. Acute respiratory failure due to coronavirus disease-2019 pneumonia. We will continue azithromycin, meropenem, and Decadron per Pulmonary and Infectious Disease specialists. We will continue to monitor his respiratory status in ICU. 2. Acute kidney injury, resolved. 3. Gastrointestinal and deep vein thrombosis prophylaxes. Lovenox 40 mg daily. MD ASHWIN Chavez/MIKE /[id number]
[2020-05-09] MEDS: MEROPENEM 1GM 100 ML IV SCH ×3 (02:00→17:04)
[2020-05-09] MEDS: VANCOMYCIN 1GM/NS 250 ML 250 ML IV SCH ×2 (02:45→17:04)
[2020-05-09 05:52] LABS: BASOPHILS % 0.2 % (0.0-1.0); EOSINOPHILS % 0.1 % (0.0-6.0); HEMATOCRIT 40.3 % (38.2-49.6); LYMPHOCYTES # (AUTO) 1.1 (1.0-3.2); LYMPHOCYTES % 5.5 % (18.0-39.1); MEAN CORPUSCULAR HEMOGLOBIN 31.7 pg (28-32); MEAN CORPUSCULAR HGB CONC 34.7 g/dL (31-35); MEAN CORPUSCULAR VOLUME 91.2 fL (81-99); MONOCYTES # (AUTO) 0.6 (0.2-0.8); NEUTROPHILS % 89.1 % (38.7-80.0); PLATELET COUNT 312 x10e3/uL (140-360); RED BLOOD COUNT 4.42 x10e6/uL (4.3-5.7); RED CELL DISTRIBUTION WIDTH 12.8 % (11.7-14.4)
[2020-05-09 06:37] LABS: ALANINE AMINOTRANSFERASE 21 IU/L (0-55); ALBUMIN 2.5 g/dL (3.5-5.0); ALBUMIN/GLOBULIN RATIO 0.6 (0.8-2.0); ALKALINE PHOSPHATASE 66 IU/L (40-150); ANION GAP 15.7 mmol/L (8-16); BLOOD UREA NITROGEN 28 mg/dL (7-26); BUN/CREATININE RATIO 39 (6-25); CALCIUM 8.6 mg/dL (8.4-10.2); CARBON DIOXIDE 26 mmol/L (22-29); CHLORIDE 104 mmol/L (98-107); CREATININE, SERUM 0.72 mg/dL (0.72-1.25); EST GLOMERULAR FILTRATION RATE > 60 ML/MIN (60-); GLUCOSE 104 mg/dL (74-118); POTASSIUM 4.7 mmol/L (3.5-5.1); SODIUM 141 mmol/L (136-145)
--- NOTE | 2020-05-09 07:17 | NUR ---
plan of care discussed with pt. reinforced the importance of laying in a prone position. pt was non complaint, would only stay in prone position pt desat in the 80's when not in the prone position.
--- NOTE | 2020-05-09 07:36 | Diagnostic Imaging Report ---
EXAMINATION: CHEST SINGLE (PORTABLE) INDICATION: Viral pneumonia. COMPARISON: Chest radiograph 05-08-2020. FINDINGS: LINES/TUBES:EKG leads overlie the chest. LUNGS:The lungs are moderately inflated. Persistent diffuse interstitial and lower lung zone airspace opacities. PLEURA:Possible trace right greater than left pleural effusions. No pneumothorax. MEDIASTINUM:The cardiomediastinal silhouette is unchanged. BONES/SOFT TISSUES:No acute osseous injury. ABDOMEN:No free air under the diaphragm. IMPRESSION: Persistent bilateral opacities, compatible with multifocal pneumonia. Signed by: Dr. Luis Cain MD on 05/09/2020 7:33 AM
[2020-05-09] MEDS: FUROSEMIDE INJ 10 MG/ML 2 ML VIAL IV SCH (08:29)
[2020-05-09] MEDS: TAMSULOSIN HCL 0.4 MG CAP PO SCH (08:29)
[2020-05-09] MEDS: GABAPENTIN 100 MG CAP PO SCH ×3 (08:30→20:46)
[2020-05-09] MEDS: AZITHROMYCIN 500MG/NS 250 ML 250 ML IV SCH (08:30)
[2020-05-09] MEDS: DEXAMETHASONE SOD PHOS INJ 4 MG/ML VIAL IV SCH (17:04)
[2020-05-09] MEDS: ENOXAPARIN SOD INJ 40 MG/0.4 ML SYR SC SCH (17:04)
--- NOTE | 2020-05-09 17:36 | Progress Note ---
DATE: 05/09/2020 SUBJECTIVE: The patient remains on a Vapotherm at 40 L along with a non-rebreather. He is intermittently in the prone position first then in supine position. PHYSICAL EXAMINATION: VITAL SIGNS: The blood pressure is 147/70, saturation is now 93%. HEENT: Shows no facial swelling or erythema. LYMPHATIC: Shows no submandibular, cervical, or supraclavicular adenopathy. CARDIAC: Reveals a regular rate and rhythm with normal S1, S2. LUNGS: Auscultation of lungs reveals crackles at the bases. There is no wheezing. ABDOMEN: Soft, nontender. There is no rebound or guarding. EXTREMITIES: Shows no leg edema or calf tenderness. There is no cyanosis or clubbing. SKIN: Shows no rashes. NEUROLOGICAL: Shows no focal abnormalities. LABORATORY DATA: BUN to creatinine ratio is 28 to 0.72. Other electrolytes are within normal limits. Albumin is 2.5. White blood cell count is 19.1, hemoglobin is 14. Platelet count is 312. RADIOGRAPHIC DATA: Chest x-ray shows bilateral infiltrates. IMPRESSION: 1. Acute respiratory failure. 2. Viral pneumonia and COVID-19 infection. 3. Acute kidney injury. 4. Glaucoma. 5. Hypertension. PLAN: 1. Continue to wean Vapotherm and oxygen. 2. Continue current antibiotics and we check vancomycin level. 3. Complete dexamethasone. 4. Continue Lovenox. Manuel Quigley MD [facility]/MODL /[id number]
--- NOTE | 2020-05-09 18:09 | NUR ---
Nutrition Screen Note RD Recommendation for Physician: - Consider adding No Concentrated Sweets to current diet Plan of Care: RD following, monitoring for tolerance and adequacy Nutrition reason for involvement: LOS Primary Diagnose(s): hypoxia, pneumonia due to COVID-19 PMH: HTN, HLD Ht: 66 in Wt: 218 lb BMI: 35.2 kg/m2 IBW: [address] Assessment: 05/09: 65 YOM admitted for hypoxia and pneumonia due to COVID-19. Pt assessed today for LOS. Attempted to call pt's room x 2, no answer- unable to obtain hx at this time. No wt loss or poor intake indicated at admit per MD notes. Pt with 50-100% intake since admit. Pt currently on Vapotherm per current respiratory status. Labs and meds reviewed. LBM 05/08, skin intact. Chart reviewed. Will continue to monitor. Current Diet: Cardiac Malnutrition Evaluation (05/09/20) The patient does not meet criteria for a specified degree of malnutrition at this time. Will re-evaluate at follow-up as appropriate. Unable to assess 2/2 current isolation precautions. Diet Education Needs Assessment: Diet education not indicated at this time. Diet tolerance: tolerating po Nutrition Care Level: low Signed: Carrie Corrigan RD, LD, [facility]
--- NOTE | 2020-05-09 20:02 | Progress Note ---
DATE: 05/09/2020 SUBJECTIVE: Mr. Bob remains in intensive care unit, on Vapotherm 40 with non-rebreather. . OBJECTIVE: VITAL SIGNS: Stable. Currently afebrile. HEENT: He is not icteric. . IMPRESSION: 1. Acute respiratory failure. 2. COVID-19. 3. Acute kidney injury. 4. Hypertension. PLAN: 1. Continue oxygen as ordered. 2. We will discontinue his antibiotic today. We will discuss again in the morning. MD JOSE Garay/MODL /[id number]
[2020-05-09] MEDS: LATANOPROST(OPTH) 2.5 ML BTL OP SCH (20:46)
[2020-05-09] MEDS: SIMVASTATIN 40 MG TAB PO SCH (20:46)
[2020-05-09] MEDS ORDERED: SODIUM CHLORIDE 0.9% 250ML 250 ML ONE (22:03)
[2020-05-10] VITALS (15 sets, daily range): BP systolic 85–139; BP diastolic 55–82
--- NOTE | 2020-05-10 01:13 | Progress Note ---
DATE: 05/09/2020 SUBJECTIVE: Complaining of dry mouth. OBJECTIVE: VITAL SIGNS: Temperature 97.6, pulse 71, respiratory rate 30, blood pressure 112/63. GENERAL: No acute distress. SKIN: No rash. HEENT: Oral mucosa is dry. LUNGS: Decreased breath sounds. HEART: Regular rate and rhythm. Normal S1, S2. GI: Abdomen is soft and nondistended. NEUROLOGIC: Alert and oriented x3. PSYCHIATRIC: No hallucination. LABORATORY DATA: Laboratory moctezuma, white count 19, hemoglobin 14, platelet count 312. Vancomycin level was 7.6, creatinine 0.7. ASSESSMENT AND PLAN: 1. Acute respiratory failure due to coronavirus disease-2019 pneumonia. The patient has completed his antibiotics. At this time, we will continue IV Decadron per Pulmonary and Infectious Disease specialist. We will continue to monitor his respiratory status in ICU. 2. Acute kidney injury, resolved. 3. Leukocytosis. We will monitor. 4. Gastrointestinal and deep vein thrombosis prophylaxes. Continue Lovenox 40 mg daily. Alicja Rodriguez MD [facility]/MODL /[id number]
--- NOTE | 2020-05-10 01:33 | Progress Note ---
DATE: 05/09/2020 Cardiology Progress Note SUBJECTIVE: Shortness of breath. Denies any chest pain, desats when taking his non-rebreather face mask off. OBJECTIVE: VITAL SIGNS: Temperature 97.6, heart rate 71, blood pressure 112/63, respiratory rate 30, O2 saturation 82% on room air, up to 92% with non-rebreather face mask. BMI 35. GENERAL: In mild distress, alert. NECK: No JVD. CHEST: With rales and decreased breath sounds. CARDIOVASCULAR: Regular rate and rhythm. Normal S1, S2. ABDOMEN: Soft. Bowel sounds positive. EXTREMITIES: Warm extremities. No edema. CARDIOVASCULAR MEDICATIONS: Reviewed. Lovenox 40 mg subcu daily, furosemide 20 mg daily, simvastatin 40 mg every night at bedtime, tamsulosin 0.4 mg daily. STUDIES: Reviewed. Sodium 131, potassium 4.7, chloride 104, bicarbonate 26, BUN 28, creatinine 0.7, glucose 104. White blood cells 19, hemoglobin 14, platelets 312. PT 18, PTT 30, INR 1.4. AST 28, ALT 21, alkaline phosphatase 66. ASSESSMENT AND PLAN: A 65-year-old man presents with coronavirus disease-19 infection, community-acquired pneumonia, acute respiratory distress, dyslipidemia. RECOMMENDATIONS: Continue supportive care with increased FiO2 supplementation and DVT prophylaxis with Lovenox, diuretics in the setting of acute on chronic diastolic heart failure. Continue statin therapy. Consider steroids. MD CHRISTINE Bal/MODL /[id number]
[2020-05-10 05:03] LABS: BASOPHILS % 0.2 % (0.0-1.0); HEMATOCRIT 39.9 % (38.2-49.6); HEMOGLOBIN 13.4 g/dL (14.0-18.0); LYMPHOCYTES # (AUTO) 0.7 (1.0-3.2); LYMPHOCYTES % 5.8 % (18.0-39.1); MEAN CORPUSCULAR HEMOGLOBIN 29.3 pg (28-32); MEAN CORPUSCULAR HGB CONC 33.6 g/dL (31-35); MEAN CORPUSCULAR VOLUME 87.1 fL (81-99); MONOCYTES # (AUTO) 0.3 (0.2-0.8); MONOCYTES % 2.3 % (4.4-11.3); NEUTROPHILS # (AUTO) 11.6 (2.1-6.9); NEUTROPHILS % 90.1 % (38.7-80.0); PLATELET COUNT 297 x10e3/uL (140-360); RED BLOOD COUNT 4.58 x10e6/uL (4.3-5.7); RED CELL DISTRIBUTION WIDTH 12.7 % (11.7-14.4)
--- NOTE | 2020-05-10 06:53 | Diagnostic Imaging Report ---
EXAMINATION: CHEST SINGLE (PORTABLE) INDICATION: Respiratory failure. COMPARISON: Chest radiograph 05-09-2020. FINDINGS: LINES/TUBES:EKG leads overlie the chest. LUNGS:The lungs are moderately inflated. Slightly decreased diffuse interstitial and lower lung zone airspace opacities. PLEURA:Possible trace right greater than left pleural effusions. No pneumothorax. MEDIASTINUM:The cardiomediastinal silhouette is unchanged. BONES/SOFT TISSUES:No acute osseous injury. ABDOMEN:No free air under the diaphragm. IMPRESSION: Slightly decreased bilateral opacities, compatible with multifocal pneumonia. Signed by: Dr. Luis Cain MD on 05/10/2020 6:50 AM
[2020-05-10 08:00] LABS: ALANINE AMINOTRANSFERASE 19 IU/L (0-55); ALBUMIN 2.2 g/dL (3.5-5.0); ALBUMIN/GLOBULIN RATIO 0.5 (0.8-2.0); ALKALINE PHOSPHATASE 59 IU/L (40-150); ANION GAP 14.7 mmol/L (8-16); BLOOD UREA NITROGEN 27 mg/dL (7-26); BUN/CREATININE RATIO 40 (6-25); CALCIUM 8.3 mg/dL (8.4-10.2); CARBON DIOXIDE 25 mmol/L (22-29); CHLORIDE 105 mmol/L (98-107); CREATININE, SERUM 0.67 mg/dL (0.72-1.25); EST GLOMERULAR FILTRATION RATE > 60 ML/MIN (60-); GLUCOSE 116 mg/dL (74-118); POTASSIUM 4.7 mmol/L (3.5-5.1); SODIUM 140 mmol/L (136-145)
[2020-05-10] MEDS: FUROSEMIDE INJ 10 MG/ML 2 ML VIAL IV SCH (09:00)
[2020-05-10] MEDS: GABAPENTIN 100 MG CAP PO SCH ×3 (09:00→20:58)
[2020-05-10] MEDS: TAMSULOSIN HCL 0.4 MG CAP PO SCH (09:00)
--- NOTE | 2020-05-10 11:37 | Progress Note ---
DATE: 05/10/2020 Cardiology Progress Note SUBJECTIVE: No new complaints. OBJECTIVE: VITAL SIGNS: Temperature 97.9, heart rate 57, respiratory rate 19, blood pressure 117/82, O2 saturation 97% on non-rebreather face mask. GENERAL: No acute distress. Alert. HEENT: Wearing face mask. Dry mucosa. NECK: No JVD. CHEST: With rales and decreased breath sounds. CARDIOVASCULAR: Regular rate and rhythm. Normal S1 and S2. ABDOMEN: Soft. EXTREMITIES: No edema. CARDIOVASCULAR MEDICATIONS: Reviewed. Simvastatin 40 mg at bedtime, Lovenox 40 mg subcu daily, furosemide 20 mg IV daily, tamsulosin p.r.n. LABORATORY DATA: White blood cells 12, hemoglobin 13, platelets 297. Sodium 140, potassium 4.7, chloride 105, bicarbonate 25, BUN 27, creatinine 0.6, glucose 116, hemoglobin A1c was 6, total protein 6.5, albumin 2.2, TSH 0.2. ASSESSMENT AND PLAN: A 65-year-old man presents with COVID-19 infection, community-acquired pneumonia, acute respiratory distress, dyslipidemia, sinus bradycardia, status post acute kidney injury, preserved left ventricular systolic function, LVEF 55% to 60%, moderate LVH, chronic diastolic heart failure. Recommend continue current cardiovascular medications and monitor volume status. I will review chest x-ray today, slightly decreased bilateral opacities, seems euvolemic on exam. Continue current cardiovascular medications. MD CHRISTINE Bal/MIKE /[id number]
--- NOTE | 2020-05-10 14:25 | NUR ---
infectious disease progress note. [place] patient remains in intensive care unit this is day #7 Complaining of dry mouth. Patient is still weak short of breath Still on high oxygen demand lab data reviewed Review of system otherwise as above Physical examination he is alert Comfortable vitals stable afebrile OBJECTIVE: VITAL SIGNS: Temperature 97.6, pulse 71, respiratory rate 30, blood pressure 112/63. GENERAL: No acute distress. SKIN: No rash. HEENT: Oral mucosa is dry. Normocephalic LUNGS: Decreased breath sounds. HEART: Regular rate and rhythm. Normal S1, S2. GI: Abdomen is soft and nondistended. NEUROLOGIC: Alert and oriented x3. PSYCHIATRIC: No hallucination. LABORATORY DATA: Laboratory moctezuma, white count 19, hemoglobin 14, platelet count 312. Vancomycin level was 7.6, creatinine 0.7. ASSESSMENT AND PLAN: 1. Acute respiratory failure due to coronavirus disease-2019 pneumonia. The patient has completed his antibiotics. At this time, we will continue IV Decadron per Pulmonary and Infectious Disease specialist. We will continue to monitor his respiratory status in ICU. 2. Acute kidney injury, resolved. 3. Leukocytosis. We will monitor. 4. Gastrointestinal and deep vein thrombosis prophylaxes. Continue Lovenox 40 mg daily. continue with supportive care
--- NOTE | 2020-05-10 16:18 | Progress Note ---
DATE: SUBJECTIVE: The patient is currently saturating 98%. He was prone much of the day, but is now on his right side. He remains on Vapotherm at 40 L with 100% FiO2. PHYSICAL EXAMINATION: VITAL SIGNS: The patient is afebrile. Saturation is 98% and the pulse is 50 to 60. He is in the mid 20s. HEENT: Shows no facial swelling or erythema. CARDIAC: Reveals regular rate and rhythm with normal S1 and S2. LUNGS: Auscultation of lungs reveals crackles at the bases. There is no wheezing. ABDOMEN: Soft and nontender. There is no rebound or guarding. EXTREMITIES: Shows no leg edema or calf tenderness. There is no cyanosis or clubbing. SKIN: Shows no rashes. NEUROLOGICAL: Shows no focal abnormalities. LABORATORY DATA: The white blood cell count is 12.8 and the hemoglobin is 13.4. The platelet count is 297. The BUN to creatinine ratio is 27 to 0.67 and other electrolytes are within normal limits. The albumin is 2.2. RADIOGRAPHIC DATA: Chest x-ray shows slightly decreased bilateral opacities. IMPRESSION: 1. Acute respiratory failure. 2. Viral pneumonia and COVID-19 infection. 3. Acute kidney injury. 4. Glaucoma. 5. Hypertension. PLAN: 1. Continue to wean Vapotherm and oxygen. 2. Continue current antibiotics. 3. Continue Lovenox. Manuel Quigley MD [facility]/MODL /[id number]
[2020-05-10] MEDS: DEXAMETHASONE SOD PHOS INJ 4 MG/ML VIAL IV SCH (18:30)
[2020-05-10] MEDS: SIMVASTATIN 40 MG TAB PO SCH (20:58)
[2020-05-10] MEDS: LATANOPROST(OPTH) 2.5 ML BTL OP SCH (20:58)
[2020-05-10] MEDS ORDERED: DEXMEDETOMIDINE 200MCG/NS 50ML 50 ML IV ONE (21:23)
[2020-05-10] MEDS: DEXMEDETOMIDINE HCL 200 MCG in SODIUM CHLORIDE 0.9% 50ML 48 ML IV PRN (21:48)
--- NOTE | 2020-05-10 23:09 | Progress Note ---
DATE: 05/10/2020 SUBJECTIVE: Breathing is about the same. OBJECTIVE: VITAL SIGNS: Temperature 98.2, pulse 62, respiratory rate 32 and blood pressure 97/55. GENERAL: No acute distress. SKIN: No rash. LUNGS: Decreased breath sounds. HEART: Regular rate and rhythm. Normal S1 and S2. GI: Abdomen is soft and nondistended. MUSCULOSKELETAL: Painless range of motion. NEUROLOGIC: Alert and oriented x2. PSYCHIATRIC: No hallucination. LABORATORY DATA: Laboratory moctezuma, white count of 12.8, hemoglobin 13.4, and platelet count 297. Creatinine 0.67. ASSESSMENT AND PLAN: 1. Acute respiratory failure due to COVID-19 pneumonia. The patient has completed his antibiotic. We will continue IV Decadron per Pulmonary and Infectious Disease specialists. We will continue to monitor his respiratory status in the ICU. We will continue to prone him as much as possible. 2. Acute kidney injury, resolved. 3. Gastrointestinal and deep venous thrombosis prophylaxis. Continue Lovenox 40 mg daily. MD ASHWIN Chavez/MODL /[id number]
[2020-05-11] VITALS (23 sets, daily range): BP systolic 80–137; BP diastolic 38–100
[2020-05-11] MEDS ORDERED: DEXMEDETOMIDINE 200MCG/NS 50ML 50 ML IV ONE (03:39)
[2020-05-11] MEDS: DEXMEDETOMIDINE HCL 200 MCG in SODIUM CHLORIDE 0.9% 50ML 48 ML IV PRN (03:42)
[2020-05-11] MEDS: TAMSULOSIN HCL 0.4 MG CAP PO SCH (09:00)
[2020-05-11] MEDS: GABAPENTIN 100 MG CAP PO SCH ×3 (09:00→21:00)
[2020-05-11] MEDS ORDERED: MIDAZOLAM HCL 5MG/ML 10ML VIAL 100 ML IV ONE (11:12)
[2020-05-11] MEDS ORDERED: FENTANYL 2000MCG/NS 250 250 ML ONE ×3 (11:12→23:33)
[2020-05-11] MEDS ORDERED: LACTATED RINGER'S 1,000 ML INJ ONE (11:45)
[2020-05-11] MEDS: FENTANYL CITRATE INJ 2,000 MCG in SODIUM CHLORIDE 0.9% 250ML 210 ML IV PRN ×2 (11:55→23:36)
--- NOTE | 2020-05-11 12:01 | Progress Note ---
DATE: SUBJECTIVE: The patient spent much of the evening and the morning in the prone position. His saturations fluctuate between the low 80s and low 90s. When he switches back to the supine position, his saturations fallen to the 70s. He complains of dyspnea and feeling short of breath. He feels fatigued. PHYSICAL EXAMINATION: VITAL SIGNS: The blood pressure is 104/46 and saturation is in the mid 80s. HEENT: Shows no facial swelling or erythema. CARDIAC: Reveals regular rate and rhythm with normal S1 and S2. LUNGS: Auscultation of lungs reveals clear breath sounds bilaterally. There is no wheezing. ABDOMEN: Soft and nontender. There is no rebound or guarding. EXTREMITIES: Shows no leg edema or calf tenderness. There is no cyanosis or clubbing. SKIN: Shows no rashes. NEUROLOGICAL: Shows no focal abnormalities. LABORATORY DATA: White blood cell count is 12.8 and the hemoglobin is 13.4. Platelet count is normal. BUN to creatinine is normal and other electrolytes are within normal limits. IMPRESSION: 1. Viral pneumonia and COVID-19. 2. Diabetes. 3. Acute kidney injury. 4. Glaucoma. 5. Hypertension. PLAN: 1. The patient should be continued on Vapotherm. 2. Continue Lovenox. 3. Complete antibiotics. 4. If the patient worsens, endotracheal intubation may be required. MD FRANCES Mae/SHIRLEYL /[id number]
--- NOTE | 2020-05-11 12:06 | Operative Report ---
DATE OF PROCEDURE: SURGEON: Manuel Quigley MD PROCEDURE: Endotracheal intubation with GlideScope. PREOPERATIVE DIAGNOSIS: Respiratory failure. POSTOPERATIVE DIAGNOSIS: Respiratory failure. CONSENT: Consent was obtained from the patient. MEDICATIONS: Versed 2 mg, etomidate 20 mg, and succinylcholine 120 mg. DESCRIPTION OF PROCEDURE: The patient was placed in the supine position. He was on a Vapotherm along with non rebreather, superimposed over the Vapotherm. His saturations were in the 70s. He was switched to an Ambu bag. Ambu bag and an oral airway were used to preoxygenate the patient. He then received etomidate and succinylcholine. A 3-0 Mac blade was used to visualize the glottis. An 8.0 endotracheal tube was passed through the glottis on the first attempt. There was good CO2 return and equal breath sounds bilaterally. COMPLICATIONS: None. ESTIMATED BLOOD LOSS: None. Manuel Quigley MD [facility]/MODL /[id number]
--- NOTE | 2020-05-11 12:11 | Progress Note ---
DATE: 05/11/2020 Cardiology Progress Note. SUBJECTIVE: Continued to remain short of breath, some improvement in prone position, however, still desatting on non-rebreather face mask. Denies chest pain. OBJECTIVE: VITAL SIGNS: Temperature 97.8, heart rate 78, blood pressure 104/46, respiratory rate 30, O2 saturation 86% on non-rebreather face mask. BMI 35. GENERAL: In mild distress alert. Prone position. HEENT: Face mask in place. Dry mucosa. NECK: Supple. CHEST: Rales and decreased breath sounds. CARDIOVASCULAR: Regular rate and rhythm. Normal S1, S2. No S3 or S4. ABDOMEN: Bowel sounds positive. Rest of exam deferred, prone position. EXTREMITIES: No edema. CARDIOVASCULAR MEDICATIONS: Reviewed: Furosemide 20 mg daily, simvastatin 40 mg at bedtime. STUDIES: Reviewed: Creatinine 0.6, glucose 116. White blood cells 12.8, hemoglobin 13.4, platelets 297. INR 1.4. AST 27, ALT 19, alkaline phosphatase 59. ASSESSMENT AND PLAN: A 65-year-old man presents with COVID-19 infection, community-acquired pneumonia, hypertension, dyslipidemia, chronic diastolic heart failure. Guarded prognosis. RECOMMENDATIONS: Continue supportive care. Continue diuretics and steroids. Might need intubation, ventilatory support. Remains poorly responsive and worsening in spite of current maneuvers. MD CHRISTINE Bal/MIKE /[id number]
--- NOTE | 2020-05-11 12:32 | Diagnostic Imaging Report ---
EXAMINATION: CHEST SINGLE (PORTABLE) INDICATION: Intubation COMPARISON: Chest radiograph 05/10/2020 FINDINGS: LINES/TUBES:Interval intubation. Endotracheal tube terminates 4 cm above the cadence. Enteric tube projects below the diaphragm and out of view. EKG leads overlie the chest. LUNGS:The lungs are moderately inflated. Unchanged bilateral lower lung predominant airspace opacities. PLEURA:No pleural effusion or pneumothorax. MEDIASTINUM:The cardiomediastinal silhouette appears normal in size and shape. BONES/SOFT TISSUES:No acute osseous injury. ABDOMEN:No free air under the diaphragm. IMPRESSION: Interval intubation and placement of enteric tube. Unchanged bilateral airspace opacities. Signed by: Nicki Durham MD on 05/11/2020 12:29 PM
[2020-05-11] MEDS ORDERED: SODIUM CHLORIDE 0.9% 1000ML 1,000 ML ONE (14:26)
[2020-05-11 15:35] LABS: ABG HCO3 27 mmol/L (22-26); ABG PCO2 50 mmHg (35-45); ABG PH 7.33 (7.35-7.45); ABG PO2 102 mmHg (80-105)
--- NOTE | 2020-05-11 16:45 | NUR ---
The patient spent much of the evening and the morning in the prone position. His saturations fluctuate between the low 80s and low 90s. When he switches back to the supine position, his saturations fallen to the 70s. He complains of dyspnea and feeling short of breath. He feels fatigued. PHYSICAL EXAMINATION: VITAL SIGNS: The blood pressure is 104/46 and saturation is in the mid 80s. HEENT: Shows no facial swelling or erythema. CARDIAC: Reveals regular rate and rhythm with normal S1 and S2. LUNGS: Auscultation of lungs reveals clear breath sounds bilaterally. There is no wheezing. ABDOMEN: Soft and nontender. There is no rebound or guarding. EXTREMITIES: Shows no leg edema or calf tenderness. There is no cyanosis or clubbing. SKIN: Shows no rashes. NEUROLOGICAL: Shows no focal abnormalities. LABORATORY DATA: White blood cell count is 12.8 and the hemoglobin is 13.4. Platelet count is normal. BUN to creatinine is normal and other electrolytes are within normal limits. [id number]
[2020-05-11] MEDS: ROCURONIUM BROMIDE 250 MG in SODIUM CHLORIDE 0.9% 250ML 225 ML IV SCH (17:36)
[2020-05-11] MEDS: ENOXAPARIN SOD INJ 40 MG/0.4 ML SYR SC SCH ×2 (17:36→21:03)
[2020-05-11] MEDS ORDERED: VECURONIUM BROMIDE FOR INJ 20 MG VIAL ONE (17:58)
[2020-05-11] MEDS ORDERED: LACTATED RINGER'S 1,000 ML ONE (17:58)
--- NOTE | 2020-05-11 18:13 | Diagnostic Imaging Report ---
Examination: Single AP view of the chest. COMPARISON: None. INDICATION: Line placement DISCUSSION: Lines/tubes: Left-sided PICC line with tip overlying the high right atrium. Endotracheal tube and enteric tubes unchanged. Lungs: Bilateral airspace opacities are unchanged. Pleura: Probable small effusions. Heart and mediastinum: The heart and the mediastinum are unremarkable. Bones and soft tissues: No acute bony abnormalities. IMPRESSION: 1. Left PICC line with tip overlying the high right atrium. Signed by: Dr. Anmol Kim M.D. on 05/11/2020 6:10 PM
[2020-05-11] MEDS: DEXAMETHASONE SOD PHOS INJ 4 MG/ML VIAL IV SCH (19:11)
--- NOTE | 2020-05-11 19:30 | Progress Note ---
DATE: SUBJECTIVE: The patient remains in intensive care unit. This is day #8. PHYSICAL EXAMINATION: GENERAL: Currently in prone position. He is still short of breath. VITAL SIGNS: Stable. Afebrile. HEENT : Not icteric. NECK: Supple. CHEST: Crackles. HEART: No murmur ABDOMEN: Soft. IMPRESSION: 1. Respiratory failure. 2. COVID-19. 3. Diabetes mellitus. 4. Acute kidney injury. 5. The patient remains on Vapotherm. To continue with anticoagulation as ordered. Continue with proning as much as possible. We will follow. MD JOSE Garay/MODL /[id number]
[2020-05-11] MEDS: SIMVASTATIN 40 MG TAB PO SCH (21:03)
[2020-05-11] MEDS: LATANOPROST(OPTH) 2.5 ML BTL OP SCH (21:03)
[2020-05-11] MEDS ORDERED: NOREPINEPHRINE 8 MG/D5W 250 ML 250 ML IV PRN (21:45)
[2020-05-11] MEDS: MIDAZOLAM HCL 5MG/ML 10ML VIAL 100 ML IV PRN (23:35)
--- NOTE | 2020-05-11 23:41 | Progress Note ---
DATE: 05/11/2020 SUBJECTIVE: Intubated, sedated, cannot give any history. OBJECTIVE: VITAL SIGNS: Temperature 99.1, pulse 72, respiratory rate 32, and blood pressure 112/68. GENERAL: Intubated, sedated. SKIN: No rash. HEENT: Endotracheal tube in place. LUNGS: Decreased breath sounds. HEART: Regular rate and rhythm. Normal S1 and S2. GI: Abdomen is soft and nondistended. NEUROLOGIC: Sedated. PSYCHIATRIC: Sedated. LABORATORY DATA: Laboratory moctezuma, no new labs today. ASSESSMENT AND PLAN: 1. Acute respiratory failure due to COVID-19 pneumonia. The patient was intubated this morning. We will continue IV Decadron per Pulmonary and Infectious Disease specialist. 2. Acute kidney injury, which has resolved. 3. Gastrointestinal and deep venous thrombosis prophylaxis. Continue Lovenox. Yiching MD ASHWIN [facility]/MIKE /[id number]
[2020-05-12] VITALS (25 sets, daily range): BP systolic 84–120; BP diastolic 47–71
[2020-05-12] MEDS ORDERED: SODIUM CHLORIDE 0.9% 250ML 250 ML ONE (02:11)
[2020-05-12] MEDS: FENTANYL CITRATE INJ 2,000 MCG in SODIUM CHLORIDE 0.9% 250ML 210 ML IV PRN (02:13)
[2020-05-12] MEDS ORDERED: SODIUM CHLORIDE 0.9% 500ML 500 ML ONE (04:27)
[2020-05-12 06:06] LABS: BASOPHILS % 0.1 % (0.0-1.0); HEMATOCRIT 35.9 % (38.2-49.6); HEMOGLOBIN 11.5 g/dL (14.0-18.0); LYMPHOCYTES # (AUTO) 0.6 (1.0-3.2); LYMPHOCYTES % 4.3 % (18.0-39.1); MEAN CORPUSCULAR HEMOGLOBIN 29.3 pg (28-32); MEAN CORPUSCULAR VOLUME 91.3 fL (81-99); MONOCYTES # (AUTO) 0.2 (0.2-0.8); MONOCYTES % 1.7 % (4.4-11.3); NEUTROPHILS # (AUTO) 11.9 (2.1-6.9); NEUTROPHILS % 93.2 % (38.7-80.0); PLATELET COUNT 268 x10e3/uL (140-360); RED BLOOD COUNT 3.93 x10e6/uL (4.3-5.7); RED CELL DISTRIBUTION WIDTH 12.9 % (11.7-14.4)
[2020-05-12 06:33] LABS: ALANINE AMINOTRANSFERASE 16 IU/L (0-55); ALBUMIN 1.8 g/dL (3.5-5.0); ALBUMIN/GLOBULIN RATIO 0.4 (0.8-2.0); ALKALINE PHOSPHATASE 47 IU/L (40-150); ANION GAP 13.4 mmol/L (8-16); BLOOD UREA NITROGEN 33 mg/dL (7-26); BUN/CREATININE RATIO 43 (6-25); CALCIUM 7.9 mg/dL (8.4-10.2); CARBON DIOXIDE 25 mmol/L (22-29); CHLORIDE 108 mmol/L (98-107); CREATININE, SERUM 0.76 mg/dL (0.72-1.25); EST GLOMERULAR FILTRATION RATE > 60 ML/MIN (60-); GLUCOSE 118 mg/dL (74-118); POTASSIUM 5.4 mmol/L (3.5-5.1); SODIUM 141 mmol/L (136-145)
[2020-05-12] MEDS: MIDAZOLAM HCL 5MG/ML 10ML VIAL 100 ML IV PRN ×2 (06:38→14:41)
--- NOTE | 2020-05-12 06:38 | Diagnostic Imaging Report ---
Examination: Single AP view of the chest. COMPARISON: Chest radiograph 05-11-2020. INDICATION: Respiratory failure. DISCUSSION: Lines/tubes: Endotracheal tube, left arm PICC, and enteric tubes unchanged. Lungs: Bilateral interstitial and airspace opacities are slightly improved. Pleura: Probable small effusions. No pneumothorax. Heart and mediastinum: The heart and the mediastinum are unremarkable. Bones and soft tissues: No acute bony abnormalities. Degenerative changes in the thoracic spine. IMPRESSION: Slightly improved bilateral opacities, compatible with multifocal pneumonia. Lines and tubes as above. No pneumothorax. Signed by: Dr. Luis Cain MD on 05/12/2020 6:34 AM
--- NOTE | 2020-05-12 08:38 | Diagnostic Imaging Report ---
EXAM: ABDOMEN-1VIEW (KUB) DATE: 05/12/2020 7:30 AM INDICATION: NG tube placement COMPARISON: None FINDINGS/IMPRESSION: Nasogastric tube is only partially visualized, tip projects over the distal gastric body. Nonobstructive bowel gas pattern. No acute osseous abnormality. No abnormal calcifications. Temperature probe projects over the pelvis. Signed by: Prince Fernandez MD on 05/12/2020 8:35 AM
[2020-05-12] MEDS: TAMSULOSIN HCL 0.4 MG CAP PO SCH (09:00)
[2020-05-12] MEDS: GABAPENTIN 100 MG CAP PO SCH ×3 (09:00→21:31)
--- NOTE | 2020-05-12 09:03 | Operative Report ---
DATE OF PROCEDURE: 05/12/2020 SURGEON: Manuel Quigley MD PROCEDURE: Arterial line placement under ultrasound guidance. PREOPERATIVE DIAGNOSES: Respiratory failure, viral pneumonia, and COVID-19 infection. POSTOPERATIVE DIAGNOSES: Respiratory failure, viral pneumonia, and COVID-19 infection. CONSENT: Consent was obtained from the patient. ANESTHESIA: The patient was on Versed and fentanyl at the time of the procedure. DESCRIPTION OF PROCEDURE: The right wrist was prepped sterilely with chlorhexidine. Sterile drape, sterile mask, and sterile gloves were used. An ultrasound machine was used to locate the radial artery. The radial artery was cannulated under direct visualization with a 20-gauge needle. A wire was passed over the needle and a 20-gauge catheter was passed over the wire by the Seldinger technique. There was good blood return with a normal arterial waveform. COMPLICATIONS: None. ESTIMATED BLOOD LOSS: None. Manuel Quigley MD [facility]/MODL /[id number]
[2020-05-12 09:06] LABS: ABG HCO3 27 mmol/L (22-26); ABG PCO2 45 mmHg (35-45); ABG PO2 290 mmHg (80-105)
--- NOTE | 2020-05-12 09:07 | Progress Note ---
DATE: SUBJECTIVE: The patient required some additional fluids yesterday. He is currently on a PRVC at a rate of 32 with a tidal volume of 400 and FiO2 of 80%. His PEEP is set at 14. PHYSICAL EXAMINATION: VITAL SIGNS: The blood pressure is 110/71, saturation is 98%. HEENT: No facial swelling or erythema. CARDIAC: Regular rate and rhythm with a normal S1, S2. LUNGS: Auscultation of lungs reveals crackles at the bases. There is no wheezing. ABDOMEN: Soft, nontender. There is no rebound or guarding. CARDIAC: Regular rate and rhythm with normal S1, S2. EXTREMITIES: No leg edema or calf tenderness. There is no cyanosis or clubbing. SKIN: No rashes. LABORATORY DATA: White blood cell count is 12.8 and hemoglobin is 11.5. The platelet count is 286. The BUN to creatinine ratio is 33 to 0.76 and the potassium is 5.4. Albumin is 1.8. RADIOGRAPHIC DATA: Bilateral opacities. IMPRESSION: 1. Acute respiratory failure. 2. Profound pneumonia and coronavirus disease-19 infection. 3. Diabetes. 4. Acute kidney injury. 5. Glaucoma. 6. Hypertension. PLAN: 1. Decrease FiO2 as tolerated. 2. The patient will initiate enteral feedings and free water. 3. Continue Versed, fentanyl, and rocuronium. 4. Continue current antibiotics. 5. Lovenox. 6. Complete dexamethasone. 7. Case discussed with nursing staff, Respiratory, Internal Medicine, and family. Greater than 35 minutes in direct critical care time apart from any procedures performed. Manuel Quigley MD [facility]/SHIRLEYL /[id number]
[2020-05-12 09:59] LABS: BAND NEUTROPHILS % (MANUAL) 1 %; LYMPHOCYTES % (MANUAL) 3 % (19-48); MONOCYTES % (MANUAL) 1 % (3.4-9.0); NEUTROPHILS % (MANUAL) 95 % (40-74)
[2020-05-12 10:00] LABS: PLATELET ESTIMATE ADEQUATE; PLATELET MORPHOLOGY COMMENT NORMAL; RBC MORPHOLOGY COMMENT NORMAL
[2020-05-12] MEDS: ENOXAPARIN SOD INJ 40 MG/0.4 ML SYR SC SCH ×2 (10:02→21:31)
[2020-05-12] MEDS: ROCURONIUM BROMIDE 250 MG in SODIUM CHLORIDE 0.9% 250ML 225 ML IV SCH ×2 (13:30→19:30)
[2020-05-12] MEDS: DEXAMETHASONE SOD PHOS INJ 4 MG/ML VIAL IV SCH (14:07)
--- NOTE | 2020-05-12 15:43 | NUR ---
Nutrition Intervention Note RD Recommendation(s) for Physician: -Recommend modifying tube feeding to Vital AF 1.2 @ goal rate of 55 mL/hr (provides 1584 kcal, 99 g proteim). Water/fluid amangement per MD Plan of Care: RD following, monitoring for tolerance and adequacy Nutrition reason for involvement: enteral nutrition RD Assessment 05/12: Pt was intubated yesterday and tube feeding was ordered. It is recorded that pt consumed 25% of breakfast on 05/10 and was previously consuming 50-100% of meals. Recommendations provided. Will continue to monitor. 05/09: 65 YOM admitted for hypoxia and pneumonia due to COVID-19. Pt assessed today for LOS. Attempted to call pt's room x 2, no answer- unable to obtain hx at this time. No wt loss or poor intake indicated at admit per MD notes. Pt with 50-100% intake since admit. Pt currently on Vapotherm per current respiratory status. Labs and meds reviewed. LBM 05/08, skin intact. Chart reviewed. Will continue to monitor. Principal Problems/Diagnoses: hypoxia, pneumonia due to COVID-19 PMH: HTN, HLD I/O: 1920/900 GI: soft, round abdomen, last recorded BM 05/10 Skin: no pressure ulcers noted Labs: (05/12/20) Na 141, K 5.4, BUN 33, Cr 0.76, Glu 118, Ca 7.9 Meds: fentanyl, simvastatin, dexmethasone, rocuronium, norepinephrine Ht: 66 inches Wt: 218 lbs BMI: 35.2 IBW: 142 lbs Malnutrition Evaluation (05/09/20) The patient does not meet criteria for a specified degree of malnutrition at this time. Will re-evaluate at follow-up as appropriate. Unable to assess due to current isolation precautions. Nutrition Prescription (Diet Order): Glucerna 1.2 @ 30 mL/hr (provides 864 kcal, 43 g protein) Estimated Nutritional Needs: 6959-4556 calories/day (22-25 kcal/kg IBW) 97-129 g protein/day (1.5-2 g pro/kg IBW) Diet Adequacy: Not meeting calorie needs, Not meeting protein needs Tolerance: Tolerance pending Diet Education Needs Assessment: Diet education is not indicated, pt is intubated Nutrition Care Level: moderate Nutrition Diagnosis: Inadequate oral intake related to acute respiratory failure/mechanical ventilation as evidenced by requiring enteral nutrition. Goal: Patient will meet 75-100% of estimated needs by follow up Progress: N/A Interventions: - Composition, Rate, Route, Recommended Modifications Monitoring/Evaluation: -Total energy intake, Total protein intake, Formula/Solution, Weight change Signed: Ruth Kern RD, LD
--- NOTE | 2020-05-12 17:06 | NUR ---
The patient required some additional fluids yesterday. He is currently on a PRVC at a rate of 32 with a tidal volume of 400 and FiO2 of 80%. His PEEP is set at 14. PHYSICAL EXAMINATION: VITAL SIGNS: The blood pressure is 110/71, saturation is 98%. HEENT: No facial swelling or erythema. CARDIAC: Regular rate and rhythm with a normal S1, S2. LUNGS: Auscultation of lungs reveals crackles at the bases. There is no wheezing. ABDOMEN: Soft, nontender. There is no rebound or guarding. CARDIAC: Regular rate and rhythm with normal S1, S2. EXTREMITIES: No leg edema or calf tenderness. There is no cyanosis or clubbing. SKIN: No rashes. LABORATORY DATA: White blood cell count is 12.8 and hemoglobin is 11.5. The platelet count is 286. The BUN to creatinine ratio is 33 to 0.76 and the potassium is 5.4. Albumin is 1.8. RADIOGRAPHIC DATA: Bilateral opacities. [id number]
--- NOTE | 2020-05-12 19:36 | Progress Note ---
DATE: SUBJECTIVE: Mr. Bob, this is day #9 of hospitalization, remains in intensive care unit. The patient was currently on ventilator. His vent setting reviewed. OBJECTIVE: VITAL SIGNS: Intubated. Vitals stable. IMPRESSION: 1. Respiratory failure, coronavirus disease-19. 2. Diabetes mellitus. 3. Acute kidney injury. 4. Hypertension. The plan is to continue as ordered. He is currently off antibiotic. Continue nutritional support. Continue anticoagulation. We will finish his Decadron and observe clinically for recurrent aspiration. MD JOSE Garay/MODL /[id number]
[2020-05-12 21:23] LABS: ABG HCO3 28 mmol/L (22-26); ABG PCO2 53 mmHg (35-45); ABG PH 7.33 (7.35-7.45); ABG PO2 104 mmHg (80-105)
[2020-05-12 21:24] LABS: ABG TCO2 97
[2020-05-12] MEDS: LATANOPROST(OPTH) 2.5 ML BTL OP SCH (21:31)
[2020-05-12] MEDS: SIMVASTATIN 40 MG TAB PO SCH (21:31)
--- NOTE | 2020-05-12 23:22 | Progress Note ---
DATE: 05/12/2020 SUBJECTIVE: Sedated, unable to give history. OBJECTIVE: VITAL SIGNS: Temperature 98.6, pulse 51, respiratory rate 32, and blood pressure 112/66. GENERAL: Intubated, sedated. SKIN: No rash. HEENT: Endotracheal tube in place. LUNGS: Decreased breath sounds. HEART: Viet. Normal S1 and S2. GI: Abdomen is soft and nondistended. NEUROLOGIC: Sedated. PSYCHIATRIC: Sedated. LABORATORY DATA: Laboratory [place], white count 12.8, hemoglobin 11.9, and platelet count 268. Creatinine 0.76. ASSESSMENT AND PLAN: 1. Acute respiratory failure due to COVID-19 pneumonia. Continue vent support per firestop/containment worker. Continue IV Decadron per Infectious Disease specialist. 2. Acute kidney injury. This has resolved. 3. Gastrointestinal and deep venous thrombosis prophylaxis. Continue Lovenox. Yiching MD ASHWIN Jean-Baptiste/MIKE /[id number]
--- NOTE | 2020-05-12 23:47 | Progress Note ---
DATE: 05/12/2020 Cardiology Progress Note SUBJECTIVE: Sedated on ventilator, supine position. OBJECTIVE: VITAL SIGNS: BP 104/51, heart rate is 53 and regular, he is afebrile, and oxygen saturation 96%, FiO2 80%, PEEP 14 HEAD AND NECK: ET tube in place, oral intubation. LUNGS: Decreased breath sounds. CARDIAC: Regular rate and rhythm. Bradycardic. No murmurs heard. ABDOMEN: Obese, soft. EXTREMITIES: no edema or cyanosis Endotracheal intubation 05/11/20 because of SO2% 70s on Vapotherm and non- rebreather mask (100%). Echocardiogram ordered. Telemetry: sinus bradycardia CXR: Bilateral infiltrates. LABORATORY DATA: wbc count: 12.8 K H/H 11.5/36, platelet count: 268K. CMP: Na 141, K 5.4, Cl 108, HCO3 25, BUN 33, cr 0.76 AST and ALT within normal reference range; albumin 1.8. MEDICATIONS: Reviewed. ASSESSMENT AND PLAN: (1) Covid 19 infection and severe viral pneumonia. (2) Acute respiratory failure (3) Sinus bradycardia, no AV blocks. Plan: (1) Continue supportive care (2) Antibiotics and optimization of ventilation as per consultants. (3) Sinus bradycardia, continue to monitor. Lo Rodriguez MD [facility]/MODL /[id number] MTDD
[2020-05-13] VITALS (28 sets, daily range): BP systolic 85–148; BP diastolic 53–98
[2020-05-13] MEDS: MIDAZOLAM HCL 5MG/ML 10ML VIAL 100 ML IV PRN ×2 (00:49→14:56)
[2020-05-13 04:59] LABS: BASOPHILS % 0.2 % (0.0-1.0); HEMATOCRIT 35.4 % (38.2-49.6); HEMOGLOBIN 11.3 g/dL (14.0-18.0); LYMPHOCYTES # (AUTO) 0.7 (1.0-3.2); LYMPHOCYTES % 4.9 % (18.0-39.1); MEAN CORPUSCULAR HEMOGLOBIN 29.4 pg (28-32); MEAN CORPUSCULAR HGB CONC 31.9 g/dL (31-35); MEAN CORPUSCULAR VOLUME 92.2 fL (81-99); MONOCYTES # (AUTO) 0.4 (0.2-0.8); MONOCYTES % 2.9 % (4.4-11.3); NEUTROPHILS # (AUTO) 12.1 (2.1-6.9); NEUTROPHILS % 91.2 % (38.7-80.0); PLATELET COUNT 297 x10e3/uL (140-360); RED BLOOD COUNT 3.84 x10e6/uL (4.3-5.7)
[2020-05-13 05:20] LABS: ALANINE AMINOTRANSFERASE 44 IU/L (0-55); ALBUMIN 1.8 g/dL (3.5-5.0); ALBUMIN/GLOBULIN RATIO 0.4 (0.8-2.0); ALKALINE PHOSPHATASE 49 IU/L (40-150); ANION GAP 13.2 mmol/L (8-16); BLOOD UREA NITROGEN 41 mg/dL (7-26); BUN/CREATININE RATIO 53 (6-25); CALCIUM 8.3 mg/dL (8.4-10.2); CARBON DIOXIDE 25 mmol/L (22-29); CHLORIDE 109 mmol/L (98-107); CREATININE, SERUM 0.77 mg/dL (0.72-1.25); EST GLOMERULAR FILTRATION RATE > 60 ML/MIN (60-); GLUCOSE 146 mg/dL (74-118); POTASSIUM 5.2 mmol/L (3.5-5.1); SODIUM 142 mmol/L (136-145)
--- NOTE | 2020-05-13 06:24 | Diagnostic Imaging Report ---
Examination: Single AP view of the chest. COMPARISON: Chest radiograph 05-12-2020. INDICATION: Respiratory failure. Pneumonia. DISCUSSION: Lines/tubes: Endotracheal tube, left arm PICC, and enteric tubes unchanged in position.. Lungs: Bilateral interstitial and airspace opacities again observed, with interval increase in the right base. Pleura: Bilateral trace pleural effusions. No pneumothorax. Heart and mediastinum: The heart and the mediastinum are unremarkable. Bones and soft tissues: No acute bony abnormalities. Degenerative changes in the thoracic spine. IMPRESSION: Multifocal pneumonia, increased in the right lower lobe. Signed by: Dr. Claudio Littlejohn M.D. on 05/13/2020 6:20 AM
[2020-05-13] MEDS: ENOXAPARIN SOD INJ 40 MG/0.4 ML SYR SC SCH ×2 (08:22→21:00)
[2020-05-13] MEDS: TAMSULOSIN HCL 0.4 MG CAP PO SCH (08:22)
[2020-05-13] MEDS: GABAPENTIN 100 MG CAP PO SCH (08:22)
--- NOTE | 2020-05-13 09:22 | Progress Note ---
DATE: Pulmonary Critical Care Progress Note SUBJECTIVE: The patient is still on PRVC mode of ventilation with sedimentation rate of 32 with a tidal volume of 370 and a PEEP of 14. The FiO2 is set at 70%. The patient is receiving enteral feedings and free water. The patient is now on Versed and fentanyl as well as rocuronium. The patient completed the course of Decadron. PHYSICAL EXAMINATION: VITAL SIGNS: The patient is afebrile. The blood pressure is 131/55 and the respiratory rate is 32. Saturation is 97%. HEENT: Shows no facial swelling or erythema. CARDIAC: Reveals bradycardia with normal S1 and S2. LUNGS: Auscultation of lungs reveals crackles at the bases. There is no wheezing. ABDOMEN: Soft and nontender. There is no rebound or guarding. EXTREMITIES: Shows no leg edema or calf tenderness. There is no cyanosis or clubbing. SKIN: Shows no rashes. NEUROLOGICAL: Shows no focal abnormalities. LABORATORY DATA: White blood cell count is 13.3 and the hemoglobin is 11.3. The platelet count is 297. The BUN to creatinine ratio is 41 to 0.77, the potassium is 5.2. Albumin is 1.8. Other electrolytes within normal limits. RADIOGRAPHIC DATA: Chest x-ray shows multifocal pneumonia. IMPRESSION: 1. Acute respiratory failure. 2. Viral pneumonia and COVID-19 infection. 3. Diabetes. 4. Glaucoma. 5. Hypertension. 6. Bradycardia. PLAN: 1. Continue current ventilator settings. 2. Continue Versed, fentanyl, and rocuronium. 3. Place the patient in prone position. 4. EKG. 5. Continue Lovenox. 6. Discussed convalescent plasma with Infectious Disease. 7. Called family for update today. No answer. Hopefully, they will call back later today. Greater than 35 minutes in direct critical care time. Manuel Quigley MD [facility]/MODL /[id number]
[2020-05-13] MEDS: ROCURONIUM BROMIDE 250 MG in SODIUM CHLORIDE 0.9% 250ML 225 ML IV SCH ×2 (09:29→22:30)
[2020-05-13 09:31] LABS: ABG HCO3 27 mmol/L (22-26); ABG PCO2 47 mmHg (35-45); ABG PH 7.37 (7.35-7.45); ABG PO2 92 mmHg (80-105)
[2020-05-13] MEDS: FENTANYL 2000MCG/NS 250 250 ML IV PRN ×2 (14:56)
--- NOTE | 2020-05-13 18:20 | Progress Note ---
DATE: SUBJECTIVE: Mr. Bob remained in intensive care unit. Intubated and sedated. PHYSICAL EXAMINATION: GENERAL: Intubated and sedated. VITAL SIGNS: Stable and afebrile. HEENT: He is not icteric. NECK: Supple. CHEST: Crackles. HEART: S1, S2. ABDOMEN: Soft. LABORATORY DATA: Reviewed. IMPRESSION: Respiratory failure, COVID-19, diabetes mellitus. Continue with plan of care as ordered. Wean as ordered. Prognosis is guarded. We will follow. MD JOSE Garay/MODL /[id number]
--- NOTE | 2020-05-13 19:30 | NUR ---
Chest tube re inserted by dr Quigley, imaging done and reviewed by him Addendum: 05/14/20 at 0557 by LOW CHAN RN NOTES ON THE WRONG PATIENT
[2020-05-13] MEDS: LATANOPROST(OPTH) 2.5 ML BTL OP SCH (21:00)
--- NOTE | 2020-05-13 23:16 | Progress Note ---
DATE: 05/13/2020 SUBJECTIVE: Intubated, sedated, cannot give any history. OBJECTIVE: VITAL SIGNS: Temperature 97.9, pulse 51, respiratory rate 32, blood pressure 107/72. GENERAL: Intubated, sedated. SKIN: No rash. HEENT: Endotracheal tube in place. LUNGS: Decreased breath sounds. HEART: Bradycardiac. Normal S1, S2. GI: Abdomen is soft, nondistended. NEUROLOGIC: Sedated. PSYCHIATRIC: Sedated. LABORATORY DATA: Laboratory [place], white count 13.3, hemoglobin 11, platelet count 297, BUN 41, creatinine 0.77. ASSESSMENT AND PLAN: 1. Acute respiratory failure due to coronavirus disease-19 pneumonia. We will continue vent support per acquisitions librarian. Completed Decadron per Infectious Disease specialist. 2. Bradycardia, per chin strap sewer. 3. Acute kidney injury. This is resolved. 4. Gastrointestinal and deep vein thrombosis prophylaxis. We will continue Lovenox. MD ASHWIN Chavez/IMKE /[id number] MTDD
--- NOTE | 2020-05-13 23:55 | Progress Note ---
DATE: 05/13/2020 SUBJECTIVE: Sedated on ventilator, supine position. OBJECTIVE: VITAL SIGNS: BP 125/48, heart rate is 55 and regular, he is afebrile, and oxygen saturation 90%, FiO2 70%, PEEP 14 HEAD AND NECK: ET tube in place, oral intubation; NGT. LUNGS: Decreased breath sounds. CARDIAC: Regular rate and rhythm. Bradycardic. No murmurs heard. ABDOMEN: Obese, soft. EXTREMITIES: no edema or cyanosis Endotracheal intubation 05/11/20 because of SO2% 70s on Vapotherm and non- rebreather mask (100%). Echocardiogram 05/12/2020: Limited study, only subcostal views available. Left ventricle normal in size and systolic function. Estimated LVEF 65% to 69%. Wall motion normal. Right ventricular systolic function normal. No significant pericardial effusion. CXR: Bilateral infiltrates. ABG: pH: 7.37, pCO2: 47, pO2: 92, SO2% 97. LABORATORY DATA: wbc count: 13.3K H/H 11.3/35, platelet count: 297K. CMP: Na 142, K 5.2, Cl 109, HCO3 25, BUN 41, cr 0.77, glucose 146 AST and ALT within normal reference range; albumin 1.8. MEDICATIONS: Reviewed. ASSESSMENT AND PLAN: (1) Covid 19 infection and severe viral pneumonia. (2) Acute respiratory failure (3) Sinus bradycardia, no AV blocks. Plan: (1) Continue supportive care (2) Antibiotics and optimization of ventilation as per consultants. (3) Sinus bradycardia, continue to monitor. Lo Rodriguez MD [facility]/MODL /[id number] PAN[place]
[2020-05-14] VITALS (30 sets, daily range): BP systolic 81–169; BP diastolic 60–97
[2020-05-14] MEDS: MIDAZOLAM HCL 5MG/ML 10ML VIAL 100 ML IV PRN ×2 (02:01→14:31)
[2020-05-14 05:06] LABS: BASOPHILS % 0.1 % (0.0-1.0); EOSINOPHILS % 0.1 % (0.0-6.0); HEMATOCRIT 34.7 % (38.2-49.6); HEMOGLOBIN 11.1 g/dL (14.0-18.0); LYMPHOCYTES # (AUTO) 0.9 (1.0-3.2); LYMPHOCYTES % 5.5 % (18.0-39.1); MEAN CORPUSCULAR HEMOGLOBIN 29.5 pg (28-32); MEAN CORPUSCULAR VOLUME 92.3 fL (81-99); MONOCYTES # (AUTO) 0.5 (0.2-0.8); MONOCYTES % 3.1 % (4.4-11.3); NEUTROPHILS # (AUTO) 14.1 (2.1-6.9); NEUTROPHILS % 90.3 % (38.7-80.0); PLATELET COUNT 277 x10e3/uL (140-360); RED BLOOD COUNT 3.76 x10e6/uL (4.3-5.7); RED CELL DISTRIBUTION WIDTH 13.2 % (11.7-14.4)
[2020-05-14 05:22] LABS: ALANINE AMINOTRANSFERASE 94 IU/L (0-55); ALBUMIN 1.8 g/dL (3.5-5.0); ALBUMIN/GLOBULIN RATIO 0.4 (0.8-2.0); ALKALINE PHOSPHATASE 80 IU/L (40-150); ANION GAP 14.8 mmol/L (8-16); BLOOD UREA NITROGEN 33 mg/dL (7-26); BUN/CREATININE RATIO 47 (6-25); CALCIUM 8.2 mg/dL (8.4-10.2); CARBON DIOXIDE 25 mmol/L (22-29); CHLORIDE 108 mmol/L (98-107); EST GLOMERULAR FILTRATION RATE > 60 ML/MIN (60-); GLUCOSE 101 mg/dL (74-118); POTASSIUM 4.8 mmol/L (3.5-5.1); SODIUM 143 mmol/L (136-145)
--- NOTE | 2020-05-14 06:16 | Diagnostic Imaging Report ---
Examination: Single AP view of the chest. COMPARISON: Chest radiograph 05-13-2020. INDICATION: Respiratory failure. Pneumonia. DISCUSSION: Lines/tubes: Endotracheal tube, left arm PICC, and enteric tubes unchanged in position.. Lungs: Redemonstration of bilateral predominantly lower lobe patchy airspace disease with air bronchograms, somewhat increased on the left, consistent with multifocal pneumonia.. Pleura: Bilateral trace pleural effusions. No pneumothorax. Heart and mediastinum: The heart and the mediastinum are unremarkable. Bones and soft tissues: No acute bony abnormalities. Degenerative changes in the thoracic spine. IMPRESSION: Redemonstration of bilateral predominantly lower lobe patchy airspace disease with air bronchograms, somewhat increased on the left, consistent with multifocal pneumonia.. Signed by: Dr. Claudio Littlejohn M.D. on 05/14/2020 6:13 AM
[2020-05-14 08:22] LABS: ABG HCO3 28 mmol/L (22-26); ABG PCO2 47 mmHg (35-45); ABG PH 7.38 (7.35-7.45); ABG PO2 77 mmHg (80-105)
[2020-05-14] MEDS: ENOXAPARIN SOD INJ 40 MG/0.4 ML SYR SC SCH ×2 (08:26→21:00)
[2020-05-14] MEDS ORDERED: FUROSEMIDE INJ 10 MG/ML 4 ML VIAL IV SCH (10:00)
--- NOTE | 2020-05-14 10:01 | Progress Note ---
DATE: SUBJECTIVE: The patient is afebrile. He remains on a mechanical ventilator. He is on a PRVC at a rate of 32 with a tidal volume of 380 and FiO2 of 60% and PEEP of 14. He is receiving enteral feedings. PHYSICAL EXAMINATION: VITAL SIGNS: The blood pressure is 99/80 and the saturation is 96% on the above settings. The pulse is 81. GENERAL: He is on Versed and fentanyl. HEENT: No facial swelling or erythema. There is an oral endotracheal tube. There is a nasogastric tube. CARDIAC: Reveals regular rate and rhythm with normal S1 and S2. LUNGS: Auscultation of lungs reveals decreased breath sounds at the bases. There is no wheezing. ABDOMEN: Soft and nontender. There is no rebound or guarding. EXTREMITIES: No leg edema or calf tenderness. LABORATORY DATA: BUN to creatinine ratio is 33 to 0.7. The other electrolytes are within normal limits and the albumin is 1.8. White blood cell count is 15.6 and hemoglobin is 11.1. The platelet count is 277. RADIOGRAPHIC DATA: Chest x-ray shows bilateral infiltrates. IMPRESSION: 1. Acute respiratory failure. 2. Viral pneumonia and coronavirus disease-19 infection. 3. Diabetes. 4. Glaucoma. 5. Hypertension. PLAN: 1. Continue current ventilator settings. 2. Continue Versed, fentanyl, and rocuronium. 3. EKG. 4. Place the patient in prone position. 5. Case discussed with nursing, Respiratory, administration, Infectious Disease, and family. Greater than 35 minutes in direct critical care time. Manuel Quigley MD [facility]/MIKE /[id number]
[2020-05-14] MEDS: ALBUMIN 25% 25GM 100ML 0.25 GM/ML BTL IV SCH ×2 (10:45→17:28)
[2020-05-14] MEDS: FUROSEMIDE INJ 10 MG/ML 2 ML VIAL IV SCH ×2 (10:45→21:00)
--- NOTE | 2020-05-14 13:31 | NUR ---
The patient is afebrile. He remains on a mechanical ventilator. He is on a PRVC at a rate of 32 with a tidal volume of 380 and FiO2 of 60% and PEEP of 14. He is receiving enteral feedings. [id number] PHYSICAL EXAMINATION: VITAL SIGNS: The blood pressure is 99/80 and the saturation is 96% on the above settings. The pulse is 81. GENERAL: He is on Versed and fentanyl. HEENT: No facial swelling or erythema. There is an oral endotracheal tube. There is a nasogastric tube. CARDIAC: Reveals regular rate and rhythm with normal S1 and S2. LUNGS: Auscultation of lungs reveals decreased breath sounds at the bases. There is no wheezing. ABDOMEN: Soft and nontender. There is no rebound or guarding. EXTREMITIES: No leg edema or calf tenderness. LABORATORY DATA: BUN to creatinine ratio is 33 to 0.7. The other electrolytes are within normal limits and the albumin is 1.8. White blood cell count is 15.6 and hemoglobin is 11.1. The platelet count is 277. RADIOGRAPHIC DATA: Chest x-ray shows bilateral infiltrates. IMPRESSION: 1. Acute respiratory failure. 2. Viral pneumonia and coronavirus disease-19 infection. 3. Diabetes. 4. Glaucoma.
--- NOTE | 2020-05-14 13:47 | Progress Note ---
DATE: SUBJECTIVE: Mr. Bob remains in intensive care unit on the ventilator. PHYSICAL EXAMINATION: VITAL SIGNS: Stable, afebrile. HEENT: Not icteric. NECK: Supple. CHEST: Few crackles, bilateral. HEART: S1, S2. ABDOMEN: Soft. IMPRESSION AND PLAN: 1. Respiratory failure. 2. Coronavirus disease-19. Discussed with medical team. Please refer to the orders. We will follow. MD JOSE Garay/MODL /[id number]
[2020-05-14] MEDS: FENTANYL 2000MCG/NS 250 250 ML IV PRN (16:34)
[2020-05-14] MEDS: ROCURONIUM BROMIDE 250 MG in SODIUM CHLORIDE 0.9% 250ML 225 ML IV SCH (17:28)
[2020-05-14] MEDS ORDERED: VANCOMYCIN 1GM/NS 250 ML 250 ML IV ONE (19:30)
[2020-05-14] MEDS: LATANOPROST(OPTH) 2.5 ML BTL OP SCH (21:00)
[2020-05-14] MEDS: MEROPENEM 1GM 100 ML IV SCH (22:00)
[2020-05-15] VITALS (26 sets, daily range): BP systolic 96–175; BP diastolic 41–85
[2020-05-15] MEDS: ALBUMIN 25% 25GM 100ML 0.25 GM/ML BTL IV SCH
[2020-05-15] MEDS: ROCURONIUM BROMIDE 250 MG in SODIUM CHLORIDE 0.9% 250ML 225 ML IV SCH ×4 (00:06→18:04)
--- NOTE | 2020-05-15 00:30 | NUR ---
prone at 0000, fio2 increased to 75%
--- NOTE | 2020-05-15 01:00 | Progress Note ---
DATE: 05/14/2020 SUBJECTIVE: Intubated, sedated, and cannot give any history. OBJECTIVE: VITAL SIGNS: Temperature 100.7, pulse 74, respiratory rate 32, blood pressure 104/93. GENERAL: Intubated and sedated. SKIN: No rash. HEENT: Endotracheal tube in place. LUNGS: Decreased breath sounds. HEART: Regular rate and rhythm. Normal S1 and S2. GI: Abdomen is soft and nondistended. NEUROLOGIC: Sedated. PSYCHIATRIC: Sedated. LABORATORY DATA: White count 15.6, hemoglobin 11, and platelet count 277. Creatinine 0.7. ASSESSMENT AND PLAN: 1. Acute respiratory failure due to coronavirus disease 2019 pneumonia. I have discussed with Dr. Quigley, Pulmonary. Given the low-grade fever and higher leukocytosis, we will start meropenem and IV vancomycin. We will continue vent management per delivery crew member. He has completed his Decadron per Infectious Disease specialist. 2. Acute kidney injury, which has resolved. 3. Gastrointestinal and deep venous thrombosis prophylaxis. We will continue Lovenox. MD ASHWIN Chavez/MIKE /[id number]
--- NOTE | 2020-05-15 02:35 | Progress Note ---
DATE: 05/14/2020 Cardiology Progress Note SUBJECTIVE: The patient is on the ventilator, sedated. FiO2 is 60% and with a PEEP of 14. He had a temperature of 100.8 this afternoon. OBJECTIVE: VITAL SIGNS: Show a blood pressure of 88/75 with a mean arterial pressure of 79, heart rate is 78 beats per minute. Temperature is 100.8 F. HEAD AND NECK: Endotracheal and NG tubes in place. LUNGS: Decreased breath sounds. CARDIAC: Regular rate and rhythm. ABDOMEN: Soft, not distended. EXTREMITIES: No pitting leg edema, no cyanosis. LABORATORY DATA: ABG FiO2 60%: pH 7.38, pCO2 47, pO2 77, HCO3 28, SO2 95%. White blood cell count of 15.6K, increased from 13,3K yesterday. His hemoglobin is 11. His hematocrit is 34.7. His platelet count is 277,000. His comprehensive metabolic profile shows a sodium of 143, potassium 4.8, chloride of 108, BUN of 33, creatinine of 0.70, glucose is 101. His liver tests are mildly elevated: AST of 56 and ALT of 94. MEDICATIONS: reviewed. ASSESSMENT AND PLAN: 1. COVID-19 infection and severe viral pneumonia. 2. Acute respiratory failure, on mechanical ventilation. 3. Febrile, increasing wbc count; Meropenem and vancomycin started. 4. Continue full support. MD AL Ndiaye/MIKE /[id number] PANCHITO
[2020-05-15] MEDS: FENTANYL 2000MCG/NS 250 250 ML IV PRN ×4 (03:47→18:24)
--- NOTE | 2020-05-15 04:00 | NUR ---
Fio2 reduced to 70%
[2020-05-15 04:59] LABS: BASOPHILS % 0.1 % (0.0-1.0); EOSINOPHILS # (AUTO) 0.1 (0.0-0.4); EOSINOPHILS % 0.4 % (0.0-6.0); HEMATOCRIT 31.7 % (38.2-49.6); HEMOGLOBIN 10.2 g/dL (14.0-18.0); LYMPHOCYTES # (AUTO) 1.1 (1.0-3.2); LYMPHOCYTES % 8.5 % (18.0-39.1); MEAN CORPUSCULAR HEMOGLOBIN 29.9 pg (28-32); MEAN CORPUSCULAR HGB CONC 32.2 g/dL (31-35); MONOCYTES # (AUTO) 0.4 (0.2-0.8); MONOCYTES % 2.7 % (4.4-11.3); NEUTROPHILS # (AUTO) 11.7 (2.1-6.9); NEUTROPHILS % 87.2 % (38.7-80.0); PLATELET COUNT 276 x10e3/uL (140-360); RED BLOOD COUNT 3.41 x10e6/uL (4.3-5.7); RED CELL DISTRIBUTION WIDTH 13.3 % (11.7-14.4)
[2020-05-15 05:29] LABS: ALANINE AMINOTRANSFERASE 68 IU/L (0-55); ALBUMIN 2.8 g/dL (3.5-5.0); ALBUMIN/GLOBULIN RATIO 0.6 (0.8-2.0); ALKALINE PHOSPHATASE 82 IU/L (40-150); ANION GAP 12.1 mmol/L (8-16); BLOOD UREA NITROGEN 25 mg/dL (7-26); BUN/CREATININE RATIO 33 (6-25); CALCIUM 8.7 mg/dL (8.4-10.2); CARBON DIOXIDE 29 mmol/L (22-29); CHLORIDE 103 mmol/L (98-107); CREATININE, SERUM 0.76 mg/dL (0.72-1.25); EST GLOMERULAR FILTRATION RATE > 60 ML/MIN (60-); GLUCOSE 90 mg/dL (74-118); POTASSIUM 5.1 mmol/L (3.5-5.1); SODIUM 139 mmol/L (136-145)
[2020-05-15] MEDS: MEROPENEM 1GM 100 ML IV SCH ×3 (06:01→21:11)
[2020-05-15] MEDS: MIDAZOLAM HCL 5MG/ML 10ML VIAL 100 ML IV PRN ×4 (07:16→20:34)
[2020-05-15 08:00] LABS: ABG HCO3 34 mmol/L (22-26); ABG PCO2 47 mmHg (35-45); ABG PH 7.47 (7.35-7.45); ABG PO2 69 mmHg (80-105)
[2020-05-15 08:01] LABS: ABG TCO2 36
[2020-05-15] MEDS: ENOXAPARIN SOD INJ 40 MG/0.4 ML SYR SC SCH ×2 (09:13→23:25)
[2020-05-15] MEDS: FUROSEMIDE INJ 10 MG/ML 2 ML VIAL IV SCH ×2 (09:13→21:09)
[2020-05-15] MEDS: ACETAMINOPHEN 325 MG TAB PO PRN ×2 (09:14→16:10)
--- NOTE | 2020-05-15 10:15 | NUR ---
Patient blood pressures noted to be 191/82, peak pressures noted in the 50's intermittently on the vent. Dr Quigley made aware, patient placed in supine position at this time and chest XRay obtained.
--- NOTE | 2020-05-15 11:38 | Progress Note ---
DATE: 05/15/2020 Cardiology Progress Note SUBJECTIVE: Intubated, sedated, in prone position. OBJECTIVE: VITAL SIGNS: Temperature 100.7, heart rate 88, blood pressure 172/74, respiratory rate 32, O2 saturation 99%. BMI 35. GENERAL: Intubated, sedated. HEENT: ET tube in place. NECK: Supple. CHEST: With decreased breath sounds. CARDIOVASCULAR: Regular rate and rhythm. Normal S1 and S2. ABDOMEN: Deferred as prone position in place. EXTREMITIES: With trace edema throughout. Normothermic. CARDIOVASCULAR MEDICATIONS: Lovenox 40 mg q.12 hours, furosemide 20 mg every 12 hours. STUDIES: Reviewed. Sodium 139, potassium 5.1, chloride 103, bicarbonate 29, BUN 25, creatinine 0.7, glucose 90, white blood cells 13, hemoglobin 10.2, platelets 276. INR 1.4, PT 18.7, PTT 30.9, AST 64, ALT 68, alkaline phosphatase 82. ASSESSMENT AND PLAN: A 65-year-old man presents with COVID-19 infection, community-acquired pneumonia, acute respiratory failure, has acute on chronic diastolic heart failure, hypertension. RECOMMENDATIONS: Continue current cardiovascular medications including diuretics and add hydralazine 10 mg q.4 hours as needed for uncontrolled blood pressure more than 140. Mario Harris MD [facility]/MODL /[id number]
--- NOTE | 2020-05-15 11:42 | Diagnostic Imaging Report ---
EXAMINATION: CHEST SINGLE (PORTABLE) INDICATION: Respiratory failure COMPARISON: Chest radiograph 05/11/2020 FINDINGS: LINES/TUBES:Support lines and tubes unchanged. LUNGS:The lungs are moderately inflated. Worsening right lung base consolidation. Bilateral interstitial opacities appear unchanged. PLEURA:No pleural effusion or pneumothorax. MEDIASTINUM:The cardiomediastinal silhouette appears normal in size and shape. BONES/SOFT TISSUES:No acute osseous injury. ABDOMEN:No free air under the diaphragm. IMPRESSION: Worsening right lower lobe consolidation. Signed by: Nicki Durham MD on 05/15/2020 11:39 AM
--- NOTE | 2020-05-15 11:42 | Progress Note ---
DATE: Pulmonary Critical Care Progress Note SUBJECTIVE: The patient was placed in the prone position overnight, but is now back in the supine position. He remains on Versed and fentanyl as well as some rocuronium. He is set on a PRVC mode of ventilation at a rate of 34 with a tidal volume of 370. His PEEP is set at 13 and his FiO2 is 60%. PHYSICAL EXAMINATION: HEENT: Shows no facial swelling or erythema. There is an oral endotracheal tube. LYMPHATIC: Shows no submandibular, cervical, or supraclavicular adenopathy. CARDIAC: Reveals regular rate and rhythm with normal S1 and S2. LUNGS: Auscultation of lungs reveals rhonchorous breath sounds bilaterally. There is no wheezing. ABDOMEN: Soft and nontender. There is no rebound or guarding. EXTREMITIES: Shows 1 to 2+ leg edema. LABORATORY DATA: White blood cell count is 13.4 and hemoglobin is 10.2. The platelet count is 276. The BUN to creatinine ratio is normal. Other electrolytes are within normal limits. The total bilirubin is 1.3. Albumin is 2.8. RADIOGRAPHIC DATA: Chest x-ray shows bilateral infiltrates. IMPRESSION: 1. Acute respiratory failure. 2. Viral pneumonia and COVID-19 infection. 3. Superimposed bacterial infection. 4. Acute kidney injury. 5. Diabetes. 6. Hypertension. PLAN: 1. Continue current ventilator settings and repeat ABG. 2. Continue Versed, fentanyl and rocuronium. We will attempt to wean rocuronium later today. 3. Continue enteral feedings. 4. Continue to monitor blood counts along with renal function. 5. Case discussed with nursing, Respiratory, Internal Medicine, Infectious Disease, and family. Greater than 35 minutes in direct critical care time. Manuel Quigley MD [facility]/MODL /[id number]
[2020-05-15] MEDS ORDERED: HYDRALAZINE HCL 20 MG/ML VIAL IV PRN (13:00)
[2020-05-15 13:28] LABS: ABG HCO3 30 mmol/L (22-26); ABG PCO2 44 mmHg (35-45); ABG PH 7.44 (7.35-7.45); ABG PO2 52 mmHg (80-105); ABG TCO2 31
--- NOTE | 2020-05-15 14:06 | NUR ---
The patient is still on a PRVC mode of ventilation at a rate of 34. His tidal volume is 370 and his PEEP is set at 14. His FiO2 is 70%. His peak airway pressure is 40 and his mean is 26. The patient remains on rocuronium, Versed, and fentanyl. PHYSICAL EXAMINATION: VITAL SIGNS: The blood pressure is 104/57, pulse is 86. Saturation is 94%. HEENT: Shows no facial swelling or erythema. There is no oral endotracheal tube. CARDIAC: Reveals regular rate and rhythm with normal S1, S2. LUNGS: Auscultation of lungs reveals rhonchorous breath sounds bilaterally. There is no wheezing. ABDOMEN: Soft and nontender. There is no rebound or guarding. EXTREMITIES: Shows 1 to 2+ edema. LABORATORY DATA: White blood cell count is 9.3 and hemoglobin is 9.8. The platelet count is 166. BUN to creatinine ratio is normal. Other electrolytes are within normal limits. Albumin is 2.6. Blood gases 7.36 with a CO2 of 71 and O2 of 85, and CO3 of 40. RADIOGRAPHIC DATA: Chest x-ray shows bilateral infiltrates.
--- NOTE | 2020-05-15 17:34 | Progress Note ---
DATE: SUBJECTIVE: Mr. Bob remains in intensive care unit, intubated and sedated. OBJECTIVE: VITAL SIGNS: Stable, afebrile. HEENT: He is not icteric. NECK: Supple. CHEST: Crackles bilateral. HEART: S1-S2. No murmurs. ABDOMEN: Soft. IMPRESSION AND PLAN: Respiratory failure, viral pneumonia, superimposed bacterial infection, acute kidney injury, and diabetes mellitus. The plan was discussed with Critical Care. Continue as mentioned. Refer to the orders discussed also with medical team. We will follow. MD JOSE Garay/MODL /[id number]
[2020-05-15] MEDS: LATANOPROST(OPTH) 2.5 ML BTL OP SCH (21:09)
[2020-05-16] VITALS (24 sets, daily range): BP systolic 97–159; BP diastolic 44–71
[2020-05-16] MEDS: ROCURONIUM BROMIDE 250 MG in SODIUM CHLORIDE 0.9% 250ML 225 ML IV SCH ×4 (00:45→20:57)
--- NOTE | 2020-05-16 01:10 | Progress Note ---
DATE: 05/15/2020 SUBJECTIVE: Intubated and sedated, cannot give any history. OBJECTIVE: VITAL SIGNS: Temperature 100.3, pulse 79, respiratory rate 34, blood pressure 112/53. GENERAL: Sedated, intubated. SKIN: No rash. HEENT: Endotracheal tube in place. LUNGS: Decreased breath sounds. HEART: Regular rate and rhythm. Normal S1 and S2. GI: Abdomen is soft, nondistended. NEUROLOGIC: Sedated. PSYCHIATRIC: Sedated. LABORATORY DATA: White count 13, hemoglobin 10, and platelet count 276. Creatinine 0.76. ASSESSMENT AND PLAN: 1. Acute respiratory failure due to coronavirus disease 2019 pneumonia. We will continue meropenem, status post 1 dose of IV vancomycin yesterday. We will continue vent management per laboratory animal caretaker. The patient has completed his Decadron per Infectious Disease specialist. 2. Gastrointestinal and deep venous thrombosis prophylaxis. We will continue Lovenox. MD ASHWIN Chavez/MIKE /[id number]
[2020-05-16] MEDS: FENTANYL 2000MCG/NS 250 250 ML IV PRN ×2 (04:13→16:17)
[2020-05-16] MEDS: MIDAZOLAM HCL 5MG/ML 10ML VIAL 100 ML IV PRN ×3 (04:14→21:46)
[2020-05-16 06:06] LABS: ALANINE AMINOTRANSFERASE 55 IU/L (0-55); ALBUMIN 2.3 g/dL (3.5-5.0); ALBUMIN/GLOBULIN RATIO 0.6 (0.8-2.0); ALKALINE PHOSPHATASE 82 IU/L (40-150); ANION GAP 11.1 mmol/L (8-16); BLOOD UREA NITROGEN 20 mg/dL (7-26); BUN/CREATININE RATIO 29 (6-25); CALCIUM 8.8 mg/dL (8.4-10.2); CARBON DIOXIDE 33 mmol/L (22-29); CHLORIDE 101 mmol/L (98-107); CREATININE, SERUM 0.69 mg/dL (0.72-1.25); EST GLOMERULAR FILTRATION RATE > 60 ML/MIN (60-); GLUCOSE 100 mg/dL (74-118); POTASSIUM 4.1 mmol/L (3.5-5.1); SODIUM 141 mmol/L (136-145)
[2020-05-16 06:15] LABS: BASOPHILS % 0.2 % (0.0-1.0); EOSINOPHILS # (AUTO) 0.2 (0.0-0.4); HEMATOCRIT 32.4 % (38.2-49.6); HEMOGLOBIN 10.1 g/dL (14.0-18.0); LYMPHOCYTES % 5.2 % (18.0-39.1); MEAN CORPUSCULAR HEMOGLOBIN 29.4 pg (28-32); MEAN CORPUSCULAR HGB CONC 31.2 g/dL (31-35); MEAN CORPUSCULAR VOLUME 94.2 fL (81-99); MONOCYTES # (AUTO) 0.5 (0.2-0.8); MONOCYTES % 2.3 % (4.4-11.3); NEUTROPHILS # (AUTO) 17.6 (2.1-6.9); NEUTROPHILS % 90.4 % (38.7-80.0); PLATELET COUNT 218 x10e3/uL (140-360); RED BLOOD COUNT 3.44 x10e6/uL (4.3-5.7); RED CELL DISTRIBUTION WIDTH 13.5 % (11.7-14.4)
[2020-05-16] MEDS: MEROPENEM 1GM 100 ML IV SCH ×3 (06:23→22:10)
[2020-05-16 08:01] LABS: LYMPHOCYTES % (MANUAL) 4 % (19-48); MONOCYTES % (MANUAL) 4 % (3.4-9.0); NEUTROPHILS % (MANUAL) 92 % (40-74); PLATELET ESTIMATE ADEQUATE; PLATELET MORPHOLOGY COMMENT NORMAL; RBC MORPHOLOGY COMMENT NORMAL
--- NOTE | 2020-05-16 08:38 | Diagnostic Imaging Report ---
Examination: Single AP view of the chest. COMPARISON: 05/15/2020 INDICATION: Respiratory failure DISCUSSION: Endotracheal tube, enteric tube, and left upper extremity PICC are stable in position. The lungs remain reasonably well inflated. Continued worsening of right lower lobe consolidation with complete loss of the hemidiaphragmatic contour. Diffuse interstitial opacities are otherwise unchanged. Stable cardiomediastinal contour. No acute osseous abnormalities. IMPRESSION: Stable position of support lines and tubes. Worsening right lower lobe consolidation superimposed over diffuse interstitial opacities. Signed by: Dr. Dennis Alexis M.D. on 05/16/2020 8:35 AM
[2020-05-16] MEDS: FUROSEMIDE INJ 10 MG/ML 2 ML VIAL IV SCH (08:59)
[2020-05-16] MEDS: ENOXAPARIN SOD INJ 40 MG/0.4 ML SYR SC SCH ×2 (08:59→21:44)
[2020-05-16 09:40] LABS: ABG PCO2 47 mmHg (35-45); ABG PH 7.45 (7.35-7.45); ABG PO2 67 mmHg (80-105)
[2020-05-16 09:41] LABS: ABG HCO3 32 mmol/L (22-26); ABG TCO2 34
[2020-05-16] MEDS ORDERED: SODIUM CHLORIDE 0.9% 250ML 250 ML IV ONE (10:15)
--- NOTE | 2020-05-16 10:15 | NUR ---
Blood pressure noted to be 97/44, notified Dr Neumann, new orders received to d/c lasix and to give 250cc bolus. Orders carried out.
[2020-05-16] MEDS ORDERED: SODIUM CHLORIDE 0.9% 250ML 250 ML ONE (10:26)
--- NOTE | 2020-05-16 11:12 | Progress Note ---
DATE: 05/16/2020 Cardiology Progress Note SUBJECTIVE: Remains intubated and sedated. OBJECTIVE: VITAL SIGNS: Temperature 100.1, heart rate 63, blood pressure 90/40, respiratory rate 34, and O2 saturation 96% on vent support. GENERAL: Intubated and sedated. NECK: Supple. CHEST: With rales and decreased breath sounds. CARDIOVASCULAR: Regular rate and rhythm. Normal S1, S2. ABDOMEN: Soft. Bowel sounds positive. EXTREMITIES: No edema, warm distal extremities. CARDIOVASCULAR MEDICATIONS: Reviewed. Lovenox 40 mg subcu q.12 hours, furosemide 20 mg every 12 hours, and hydralazine 10 mg q.4 hours. STUDIES: Reviewed. Creatinine 0.6. White blood cells 19, platelets 218, and hemoglobin 10. INR 1.4. AST 41, ALT 55, and alkaline phosphatase 82. ASSESSMENT AND PLAN: A 65-year-old man presents with coronavirus disease-19 infection, community-acquired pneumonia, acute respiratory failure, history of hypertension, and acute on chronic diastolic heart failure. On exam today, seems slightly volume depleted, decreased blood pressure reads as well as very concentrated urine on Vizcarra bag without significant edema on exam peripherally. Recommend 250 normal saline bolus. Discontinue diuretics for now and assess response. Continue rest of cardiovascular medications. Mario Harris MD [facility]/MODL /[id number]
--- NOTE | 2020-05-16 13:20 | NUR ---
ASSESSMENT: Spiritual distress Corn Husk Baler called pt's , Lisa ([phone]), to provided emotional/spiritual support. Pt's thankful for her sister, who is "helping out." Pt's states "we are doing okay." Intervention: Provided empathic listening. Provided information on how to reach termite treater, if needed. Outcome: Pt's expressed appreciation for support. No need to follow at this time. JACQUE Galindoin Spiritual Care Department O: [phone]
--- NOTE | 2020-05-16 15:00 | NUR ---
Patient proned at this time, tolerated well, sats noted 95%.
[2020-05-16 15:23] LABS: CLARITY,URINE SL CLOUDY (CLEAR)
[2020-05-16 15:24] LABS: BILIRUBIN,URINE SMALL (NEGATIVE); COLOR,URINE STRAW (YELLOW); KETONES,URINE TRACE (NEGATIVE); LEUKOCYTE ESTERASE ,URINE NEGATIVE (NEGATIVE); NITRITE,URINE NEGATIVE (NEGATIVE); PROTEIN,URINE DIPSTICK 1+ (NEGATIVE); URINE UROBILINOGEN 8 mg/dL (0.2 - 1)
[2020-05-16 15:35] LABS: AMORPHOUS SEDIMENT,URINE MODERATE (FEW); BACTERIA,URINE MODERATE /HPF; RBC,URINE 0-5 /HPF (0-5); WBC,URINE (MAN) 0-5 /HPF (0-5); YEAST,URINE MODERATE
--- NOTE | 2020-05-16 18:24 | Progress Note ---
DATE: SUBJECTIVE: The patient remains on a PRVC mode of ventilation. He is currently on a PRVC at a rate of 34 with a PEEP of 13 and a FiO2 of 70%. His tidal volume is set at 390. He remains on Versed and fentanyl. PHYSICAL EXAMINATION: VITAL SIGNS: The blood pressure is 118/54 and saturation is 94%. The pulse is 78. HEENT: Shows no facial swelling or erythema. LYMPHATIC: Shows no submandibular, cervical, or supraclavicular adenopathy. CARDIAC: Reveals regular rate and rhythm with normal S1 and S2. LUNGS: Auscultation of lungs reveals rhonchorous breath sounds bilaterally. There is no wheezing. ABDOMEN: Soft and nontender. There is no rebound or guarding. EXTREMITIES: Shows no leg edema. The patient is sedated on Versed and fentanyl. LABORATORY DATA: The BUN to creatinine ratio is 20 to 0.69. The other electrolytes are within normal limits. The albumin is 2.3. The white blood cell count is 19.4 and the hemoglobin is 10.1. The platelet count is 218. IMPRESSION: 1. Acute respiratory failure. 2. Viral pneumonia and COVID-19 infection. 3. Superimposed bacterial pneumonia. 4. Acute kidney injury. 5. Diabetes. 6. Hypertension. PLAN: 1. Continue current ventilator settings and repeat ABG. 2. Continue Versed, fentanyl, and rocuronium. 3. Continue enteral feedings. 4. Continue to monitor blood counts and electrolytes. 5. The patient has received small amount of additional fluid from Cardiology. 6. Case discussed with nursing, Respiratory, Cardiology, and administration. Greater than 35 minutes in direct critical care time. Manuel Quigley MD [facility]/MODL /[id number]
--- NOTE | 2020-05-16 20:10 | Progress Note ---
DATE: SUBJECTIVE: Mr. Bob remains in Intensive Care Unit. OBJECTIVE: GENERAL: Intubated and sedated. HEENT: He is not icteric. NECK: Supple. CHEST: Crackles bilateral. COR: S1, S2. ABDOMEN: Soft. IMPRESSION: Respiratory failure, COVID-19. He is currently on meropenem and Lovenox. Continue with supportive care. We will follow. MD JOSE Garay/MODL /[id number]
[2020-05-16] MEDS: LATANOPROST(OPTH) 2.5 ML BTL OP SCH (21:00)
--- NOTE | 2020-05-16 22:36 | Progress Note ---
DATE: 05/16/2020 SUBJECTIVE: Intubated, sedated, cannot give any history. OBJECTIVE: VITAL SIGNS: Temperature 100.2, pulse 83, respiratory rate 34, and blood pressure 159/71. GENERAL: Intubated, sedated. SKIN: No rash. HEENT: Endotracheal tube in place. LUNGS: Decreased breath sounds. HEART: Regular rate and rhythm. Normal S1 and S2. GI: Abdomen is soft and nondistended. NEUROLOGIC: Sedated. PSYCHIATRIC: Sedated. LABORATORY DATA: Laboratory [place], white count 19, hemoglobin 10, and platelet count 218. Creatinine 0.69. ASSESSMENT AND PLAN: 1. Acute respiratory failure due to COVID-19 pneumonia. His IV Lasix has been discontinued. We will continue meropenem. Continue vent management per dry boss. The patient has completed his Decadron per Infectious Disease specialist. We will need to monitor his low-grade fever and leukocytosis. 2. Gastrointestinal and deep venous thrombosis prophylaxis. Lovenox 40 mg b.i.d. MD ASHWIN Chavez/MIKE /[id number]
[2020-05-17] VITALS (25 sets, daily range): BP systolic 113–142; BP diastolic 41–76
[2020-05-17] MEDS: ROCURONIUM BROMIDE 250 MG in SODIUM CHLORIDE 0.9% 250ML 225 ML IV SCH ×3 (02:12→19:37)
[2020-05-17] MEDS: FENTANYL 2000MCG/NS 250 250 ML IV PRN ×2 (02:53→08:08)
[2020-05-17] MEDS: MIDAZOLAM HCL 5MG/ML 10ML VIAL 100 ML IV PRN ×2 (04:13→08:07)
[2020-05-17 05:15] LABS: BASOPHILS % 0.2 % (0.0-1.0); EOSINOPHILS # (AUTO) 0.3 (0.0-0.4); EOSINOPHILS % 1.6 % (0.0-6.0); HEMATOCRIT 31.8 % (38.2-49.6); HEMOGLOBIN 9.9 g/dL (14.0-18.0); LYMPHOCYTES % 6.4 % (18.0-39.1); MEAN CORPUSCULAR HEMOGLOBIN 29.2 pg (28-32); MEAN CORPUSCULAR HGB CONC 31.1 g/dL (31-35); MEAN CORPUSCULAR VOLUME 93.8 fL (81-99); MONOCYTES # (AUTO) 0.5 (0.2-0.8); MONOCYTES % 2.9 % (4.4-11.3); NEUTROPHILS # (AUTO) 13.7 (2.1-6.9); NEUTROPHILS % 87.2 % (38.7-80.0); PLATELET COUNT 220 x10e3/uL (140-360); RED BLOOD COUNT 3.39 x10e6/uL (4.3-5.7); RED CELL DISTRIBUTION WIDTH 13.2 % (11.7-14.4)
[2020-05-17 05:39] LABS: ALANINE AMINOTRANSFERASE 38 IU/L (0-55); ALBUMIN 1.9 g/dL (3.5-5.0); ALBUMIN/GLOBULIN RATIO 0.5 (0.8-2.0); ALKALINE PHOSPHATASE 85 IU/L (40-150); ANION GAP 10.2 mmol/L (8-16); BLOOD UREA NITROGEN 18 mg/dL (7-26); BUN/CREATININE RATIO 30 (6-25); CALCIUM 8.7 mg/dL (8.4-10.2); CARBON DIOXIDE 34 mmol/L (22-29); CHLORIDE 101 mmol/L (98-107); CREATININE, SERUM 0.61 mg/dL (0.72-1.25); EST GLOMERULAR FILTRATION RATE > 60 ML/MIN (60-); GLUCOSE 87 mg/dL (74-118); POTASSIUM 4.2 mmol/L (3.5-5.1); SODIUM 141 mmol/L (136-145)
[2020-05-17 07:31] LABS: ABG HCO3 34 mmol/L (22-26); ABG PCO2 51 mmHg (35-45); ABG PH 7.43 (7.35-7.45); ABG PO2 70 mmHg (80-105); ABG TCO2 36
[2020-05-17] MEDS: MEROPENEM 1GM 100 ML IV SCH ×3 (08:06→21:23)
[2020-05-17] MEDS: ENOXAPARIN SOD INJ 40 MG/0.4 ML SYR SC SCH ×2 (08:06→21:23)
[2020-05-17] MEDS: ACETAMINOPHEN 325 MG TAB PO PRN (08:09)
--- NOTE | 2020-05-17 12:44 | Progress Note ---
DATE: SUBJECTIVE: He is still in the prone position. He is on Versed and fentanyl as well as rocuronium. He remains on a PRVC mode of ventilation, rate of 34 with a tidal volume of 370 and a PEEP of 713. His FiO2 is 70%. PHYSICAL EXAMINATION: VITAL SIGNS: The patient's T-max is a 100. The blood pressure is 129/51, and saturation is 95%. HEENT: No facial swelling or erythema. LYMPHATIC: No submandibular, cervical, or supraclavicular adenopathy. CARDIAC: Regular rate and rhythm with normal S1, S2. LUNGS: Auscultation of lungs reveals rhonchorous breath sounds bilaterally. ABDOMEN: Soft, nontender. There is no rebound or guarding. EXTREMITIES: No leg edema or calf tenderness. There is no cyanosis or clubbing. SKIN: No rashes. LABORATORY DATA: White blood cell count is 7.43 with a CO2 of 51 and O2 of 70 and a CO3 of 34. BUN to creatinine ratio is normal. Other electrolytes are within normal limits. Albumin is 1.9. White blood cell count is 15.7, hemoglobin is 9.9. The platelet count is 320,000. IMPRESSION: 1. Acute respiratory failure. 2. Viral pneumonia and coronavirus disease-19 infection. 3. Superimposed bacterial pneumonia. 4. Acute kidney injury. 5. Diabetes. 6. Hypertension. PLAN: 1. Continue current ventilator settings and monitor ABGs. 2. Return the patient to the supine position. 3. Continue Versed, fentanyl, and rocuronium. 4. Continue enteral feedings. 5. Continue to monitor and control blood sugars. 6. Continue to monitor blood counts. The patient's antibiotics have been upgraded by the Infectious Disease. Greater than 35 minutes in direct critical care time. Manuel Quigley MD [facility]/MODL /[id number]
[2020-05-17] MEDS ORDERED: VECURONIUM BROMIDE FOR INJ 20 MG VIAL ONE (14:08)
[2020-05-17] MEDS ORDERED: MIDAZOLAM HCL 2 MG/2 ML VIAL ONE (14:08)
[2020-05-17] MEDS ORDERED: ETOMIDATE 2 MG/ML 10 ML INJ IV ONE (14:08)
[2020-05-17] MEDS ORDERED: WATER STERILE 10 ML VIAL ONE (14:08)
[2020-05-17] MEDS ORDERED: SUCCINYLCHOLINE CHLORIDE 20 MG/ML 10ML VIAL ONE (14:08)
--- NOTE | 2020-05-17 14:41 | Diagnostic Imaging Report ---
EXAM: CHEST SINGLE (PORTABLE) DATE: 05/17/2020 2:00 PM INDICATION: Respiratory failure COMPARISON: 05/16/2020 FINDINGS/impression: Endotracheal tube and left-sided PICC line identified in stable position. Enteric tube noted coursing below the diaphragm. Again identified are bilateral increased interstitial and airspace opacities with a lower lung zone predominance, slightly progressed from the prior examination. There is no evidence for pneumothorax or significant volume pleural effusion. The cardiomediastinal silhouette is stable in appearance. No acute osseous abnormality is identified. Signed by: Dr. Josemanuel Marin MD on 05/17/2020 2:37 PM
--- NOTE | 2020-05-17 15:23 | NUR ---
Nutrition Intervention Note RD Recommendation(s) for Physician: -Recommend modifying tube feeding to Vital AF 1.2 @ goal rate of 55 mL/hr (provides 1584 kcal, 99 g protein). Water/fluid management per MD Plan of Care: RD following, monitoring for tolerance and adequacy, tube feed recommendation Nutrition reason for involvement: enteral nutrition RD Assessment 05/17: Follow up. Chart reviewed. Pt remains intubated. RN reports that pts tube feeding is at 10 mL/hr at this time and pt is in the prone position. Current recommendations remain appropriate. Will continue to monitor. 05/12: Pt was intubated yesterday and tube feeding was ordered. It is recorded that pt consumed 25% of breakfast on 05/10 and was previously consuming 50-100% of meals. Recommendations provided. Will continue to monitor. 05/09: 65 YOM admitted for hypoxia and pneumonia due to COVID-19. Pt assessed today for LOS. Attempted to call pt's room x 2, no answer- unable to obtain hx at this time. No wt loss or poor intake indicated at admit per MD notes. Pt with 50-100% intake since admit. Pt currently on Vapotherm per current respiratory status. Labs and meds reviewed. LBM 05/08, skin intact. Chart reviewed. Will continue to monitor. Principal Problems/Diagnoses: hypoxia, pneumonia due to COVID-19 PMH: HTN, HLD I/O: 2771/3200 GI: flat, soft abdomen, last recorded BM 05/10 Skin: no pressure ulcers noted Labs: (05/17/20) Na 141, K 4.2, BUN 18, Cr 0.61, Glu 87, Ca 8.7 (05/12/20) Na 141, K 5.4, BUN 33, Cr 0.76, Glu 118, Ca 7.9 Meds: fentanyl, antibiotic, rocuronium Ht: 66 inches Wt: 218 lbs BMI: 35.2 IBW: 142 lbs Malnutrition Evaluation (05/09/20) The patient does not meet criteria for a specified degree of malnutrition at this time. Will re-evaluate at follow-up as appropriate. Unable to assess due to current isolation precautions. Nutrition Prescription (Diet Order): Glucerna 1.2 @ 30 mL/hr (provides 864 kcal, 43 g protein) infusing at 10 mL/hr Estimated Nutritional Needs: 4249-9202 calories/day (22-25 kcal/kg IBW) 97-129 g protein/day (1.5-2 g pro/kg IBW) Diet Adequacy: Not meeting calorie needs, Not meeting protein needs Tolerance: tolerating TF Diet Education Needs Assessment: Diet education is not indicated, pt is intubated Nutrition Care Level: moderate Nutrition Diagnosis: Inadequate oral intake related to acute respiratory failure/mechanical ventilation as evidenced by requiring enteral nutrition. Goal: Patient will meet 75-100% of estimated needs by follow up Progress: goal not met Interventions: - Composition, Rate, Route, Recommended Modifications Monitoring/Evaluation: -Total energy intake, Total protein intake, Formula/Solution, Weight change Signed: Ruth Kern RD, LD
--- NOTE | 2020-05-17 16:39 | Progress Note ---
DATE: 05/17/2020 Cardiology Progress Note SUBJECTIVE: Mr. Bob remains intubated and sedated. OBJECTIVE: VITAL SIGNS: Temperature 100.2, heart rate 75 on telemetry, in sinus rhythm. Blood pressure 117/52, respiratory rate 34, O2 saturation 96%. BMI 35. GENERAL: Intubated and sedated. NECK: Supple. CHEST: With rales and decreased breath sounds. CARDIOVASCULAR: Regular rate and rhythm. Normal S1 and S2. No S3 or S4. ABDOMEN: Soft. Bowel sounds positive. EXTREMITIES: Trace edema. CARDIOVASCULAR MEDICATIONS: Reviewed. Lovenox 40 mg subcu q.12 hours, hydralazine 10 mg q.4 hours. STUDIES: Reviewed. Sodium 141, potassium 4.2, chloride 101, bicarbonate 34, BUN 18, creatinine 0.6, glucose 87. White blood cells 15, hemoglobin 9.9, platelets 220. INR 1.4. AST 29, ALT 38, alkaline phosphatase 85. ASSESSMENT AND PLAN: A 65-year-old man presents with COVID-19 infection, community-acquired pneumonia, acute respiratory failure requiring ventilatory support, chronic diastolic heart failure and anemia. RECOMMEND: Continue current cardiovascular medications. Monitor blood pressure and volume status. Seems euvolemic today. We will monitor on a daily basis. Blood pressure better following fluid challenge yesterday. Mario Harris MD [facility]/MODL /[id number]
[2020-05-17 19:50] LABS: ABG HCO3 34 mmol/L (22-26); ABG PCO2 54 mmHg (35-45); ABG PH 7.41 (7.35-7.45); ABG PO2 59 mmHg (80-105)
[2020-05-17 19:51] LABS: ABG TCO2 36
--- NOTE | 2020-05-17 20:31 | NUR ---
Notified Dr. Quigley of [facility] results. No new orders received.
[2020-05-17] MEDS: LATANOPROST(OPTH) 2.5 ML BTL OP SCH (21:23)
--- NOTE | 2020-05-17 22:15 | Progress Note ---
DATE: 05/17/2020 SUBJECTIVE: Intubated, sedated, cannot give history. OBJECTIVE: VITAL SIGNS: Temperature 100.6, pulse 86, respiratory rate 16, blood pressure 142/64. GENERAL: Intubated, sedated. SKIN: No rash. HEENT: Endotracheal tube in place. LUNGS: Decreased breath sounds. HEART: Regular rate and rhythm. Normal S1, S2. GI: Abdomen is soft, nondistended. NEUROLOGIC: Sedated. PSYCHIATRIC: Sedated. LABORATORY DATA: Laboratory [place], white count 15.7, hemoglobin 9.9, platelet count 220, creatinine 0.6. ASSESSMENT AND PLAN: 1. Acute respiratory failure due to COVID-19 pneumonia. We will continue meropenem and monitor his low-grade fever and leukocytosis. We will continue vent management per management internship. The patient has completed his Decadron per Infectious Disease specialist. 2. Gastrointestinal and deep venous thrombosis prophylaxis. We will continue Lovenox 40 mg twice a day. MD ASHWIN Chavez/MIKE /[id number]
[2020-05-18] VITALS (26 sets, daily range): BP systolic 99–182; BP diastolic 47–82
[2020-05-18] MEDS: ACETAMINOPHEN 325 MG TAB PO PRN ×2 (00:27→20:03)
--- NOTE | 2020-05-18 00:36 | NUR ---
as resource nurse pulled one bag of versed per nurse assigned to pt request and gave to her for administration and watched her hang bag for pt.
[2020-05-18] MEDS: MIDAZOLAM HCL 5MG/ML 10ML VIAL 100 ML IV PRN ×2 (00:42→21:21)
[2020-05-18] MEDS: FENTANYL 2000MCG/NS 250 250 ML IV PRN ×3 (02:38→22:05)
[2020-05-18] MEDS: ROCURONIUM BROMIDE 250 MG in SODIUM CHLORIDE 0.9% 250ML 225 ML IV SCH ×2 (04:31→21:20)
[2020-05-18 05:19] LABS: BASOPHILS % 0.2 % (0.0-1.0); EOSINOPHILS # (AUTO) 0.3 (0.0-0.4); EOSINOPHILS % 2.1 % (0.0-6.0); HEMOGLOBIN 9.2 g/dL (14.0-18.0); LYMPHOCYTES % 8.2 % (18.0-39.1); MEAN CORPUSCULAR HEMOGLOBIN 30.6 pg (28-32); MEAN CORPUSCULAR HGB CONC 31.7 g/dL (31-35); MEAN CORPUSCULAR VOLUME 96.3 fL (81-99); MONOCYTES # (AUTO) 0.6 (0.2-0.8); NEUTROPHILS # (AUTO) 10.1 (2.1-6.9); NEUTROPHILS % 82.1 % (38.7-80.0); PLATELET COUNT 179 x10e3/uL (140-360); RED BLOOD COUNT 3.01 x10e6/uL (4.3-5.7); RED CELL DISTRIBUTION WIDTH 13.3 % (11.7-14.4)
[2020-05-18 05:42] LABS: ALANINE AMINOTRANSFERASE 32 IU/L (0-55); ALBUMIN 1.5 g/dL (3.5-5.0); ALBUMIN/GLOBULIN RATIO 0.4 (0.8-2.0); ALKALINE PHOSPHATASE 87 IU/L (40-150); BLOOD UREA NITROGEN 17 mg/dL (7-26); BUN/CREATININE RATIO 30 (6-25); CALCIUM 7.8 mg/dL (8.4-10.2); CARBON DIOXIDE 31 mmol/L (22-29); CHLORIDE 105 mmol/L (98-107); CREATININE, SERUM 0.57 mg/dL (0.72-1.25); EST GLOMERULAR FILTRATION RATE > 60 ML/MIN (60-); GLUCOSE 88 mg/dL (74-118); SODIUM 142 mmol/L (136-145)
[2020-05-18] MEDS: MEROPENEM 1GM 100 ML IV SCH ×3 (07:19→22:05)
[2020-05-18] MEDS: ENOXAPARIN SOD INJ 40 MG/0.4 ML SYR SC SCH ×2 (08:21→22:05)
[2020-05-18 09:36] LABS: ABG HCO3 35 mmol/L (22-26); ABG PCO2 53 mmHg (35-45); ABG PH 7.42 (7.35-7.45); ABG PO2 86 mmHg (80-105); ABG TCO2 36
[2020-05-18] MEDS ORDERED: BISACODYL 10 MG SUPP PR ONE (10:00)
--- NOTE | 2020-05-18 10:34 | Progress Note ---
DATE: SUBJECTIVE: Mr. Bob remains in intensive care unit on prone position. He is on Versed, fentanyl and rocuronium. OBJECTIVE: HEENT: Normocephalic. CHEST: Few crackles. HEART: S1 and S2. ABDOMEN: Soft. He had a low fever. White count 7.4. IMPRESSION: Respiratory failure, viral pneumonia with superimposed bacterial pneumonia, day #14. We will follow. MD JOSE Garay/MODL /[id number]
--- NOTE | 2020-05-18 13:59 | Progress Note ---
DATE: 05/18/2020 Cardiology Progress Note SUBJECTIVE: Intubated, sedated. OBJECTIVE: VITAL SIGNS: Temperature 99.4, heart rate 72, blood pressure 121/65, respiratory rate 34, and O2 saturation 90%. BMI 35. GENERAL: Intubated, sedated. NECK: Supple. CHEST: With rales and decreased breath sounds. CARDIOVASCULAR: Regular rate and rhythm. Normal S1 and S2. ABDOMEN: Soft. EXTREMITIES: Euthermic. Trace edema. CARDIOVASCULAR MEDICATIONS: Reviewed. Hydralazine 10 mg q.4 hours. Off diuretics currently. STUDIES: Reviewed. Potassium 4, bicarbonate 31, creatinine 0.5, BUN 17, and glucose 88. White blood cells 12, hemoglobin 9, and platelets 179. ASSESSMENT AND PLAN: A 65-year-old man with COVID-19 infection, community-acquired pneumonia, acute respiratory failure, hypertension, and chronic diastolic heart failure. RECOMMEND: Continue current cardiovascular medications and monitor volume status. Antibiotics per ID. Mario Harris MD [facility]/MODL /[id number]
[2020-05-18] MEDS ORDERED: FUROSEMIDE INJ 10 MG/ML 4 ML VIAL IV ONE (14:00)
[2020-05-18] MEDS ORDERED: LACTULOSE SYRUP 20 GM/30 ML UDC PO ONE (14:20)
[2020-05-18] MEDS ORDERED: SODIUM CHLORIDE 0.9% 250ML 250 ML ONE (14:47)
--- NOTE | 2020-05-18 14:49 | Progress Note ---
DATE: SUBJECTIVE: The patient remains on the mechanical ventilator. He is currently on a PRVC at a rate of 34 with a tidal volume of 370. His FiO2 is set at 100% and his PEEP is 13. He is saturating 93%. He remains on Versed, fentanyl, and rocuronium. PHYSICAL EXAMINATION: VITAL SIGNS: The T-max is 100.0. The blood pressure is 120/47, respiratory rate is 34, and he is synchronized with the vent. Pulse is 77. HEENT: There is an oral endotracheal tube. CARDIAC: Reveals regular rate and rhythm with normal S1 and S2. LUNGS: Auscultation of lungs reveals crackles at the bases. There is no wheezing. ABDOMEN: Soft and nontender. There is no rebound or guarding. EXTREMITIES: Shows no leg edema or calf tenderness. LABORATORY DATA: White blood cell count is 12.2 and hemoglobin is 9.2. The platelet count is 179. BUN to creatinine ratio is normal. Other electrolytes are within normal limits and the albumin is 1.2. IMPRESSION: 1. Acute respiratory failure. 2. Viral pneumonia and COVID-19 infection. 3. Acute kidney injury. 4. Diabetes. 5. Hypertension. PLAN: 1. Continue current ventilator settings and monitor ABGs. 2. Place the patient in the prone position again. 3. Continue Versed, fentanyl, and rocuronium. 4. Continue enteral feedings. 5. Give albumin with Lasix. 6. Continue to monitor and control blood sugars. 7. Case discussed with daughter, Mackenzie. 8. Case discussed with Respiratory, nursing, administration, and Infectious Disease. Greater than 35 minutes in direct critical care time. Manuel Quigley MD [facility]/MODL /[id number]
--- NOTE | 2020-05-18 17:58 | NUR ---
The patient remains on the mechanical ventilator. He is currently on a PRVC at a rate of 34 with a tidal volume of 370. His FiO2 is set at 100% and his PEEP is 13. He is saturating 93%. He remains on Versed, fentanyl, and rocuronium. PHYSICAL EXAMINATION: VITAL SIGNS: The T-max is 100.0. The blood pressure is 120/47, respiratory rate is 34, and he is synchronized with the vent. Pulse is 77. HEENT: There is an oral endotracheal tube. CARDIAC: Reveals regular rate and rhythm with normal S1 and S2. LUNGS: Auscultation of lungs reveals crackles at the bases. There is no wheezing. ABDOMEN: Soft and nontender. There is no rebound or guarding. EXTREMITIES: Shows no leg edema or calf tenderness. LABORATORY DATA: White blood cell count is 12.2 and hemoglobin is 9.2. The platelet count is 179. BUN to creatinine ratio is normal. Other electrolytes are within normal limits and the albumin is 1.2. [id number]
[2020-05-18] MEDS ORDERED: ALBUMIN 25% 25GM 100ML 0.25 GM/ML BTL IV SCH (18:00)
[2020-05-18] MEDS: ALBUMIN 25% 25GM 100ML 100 ML IV SCH (19:15)
[2020-05-18 20:58] LABS: ABG PCO2 61 mmHg (35-45)
[2020-05-18 20:59] LABS: ABG HCO3 38 mmol/L (22-26); ABG PO2 60 mmHg (80-105); ABG TCO2 40
[2020-05-18] MEDS: LATANOPROST(OPTH) 2.5 ML BTL OP SCH (21:00)
--- NOTE | 2020-05-18 23:32 | Progress Note ---
DATE: SUBJECTIVE: Mr. Bob remains in Intensive Care Unit. OBJECTIVE: VITAL SIGNS: Stable. Currently afebrile. HEENT: He is not icteric. NECK: Supple. CHEST: Clear. ABDOMEN: Soft. IMPRESSION: 1. His vent setting reviewed. 2. Acute respiratory failure, coronavirus disease-2019. 3. Acute kidney injury. 4. Diabetes mellitus. 5. Discussed with the medical team. Discussed his clinical care. Rocío Robertson MD [facility]/MODL /[id number]
--- NOTE | 2020-05-18 23:32 | Progress Note ---
DATE: 05/18/2020 SUBJECTIVE: Intubated, sedated, unable to give history. OBJECTIVE: VITAL SIGNS: Temperature 101.2, pulse 112, respiratory rate 34, blood pressure 132/53. GENERAL: Intubated, sedated. SKIN: No rash. HEENT: Endotracheal tube in place. LUNGS: Decreased breath sounds. HEART: Tachycardic. Normal S1, S2. GI: Abdomen is soft, nondistended. NEUROLOGIC: Sedated. PSYCHIATRIC: Sedated. LABORATORY DATA: White count 12.27, hemoglobin 9.2, platelet count 179, creatinine 0.57. ASSESSMENT AND PLAN: 1. Acute respiratory failure due to coronavirus disease-19 pneumonia, now patient has fever. We will continue meropenem. His leukocytosis did improve a little. We will continue vent management per Pulmonology. The patient has completed his Decadron per Infectious Disease specialist. 2. Gastrointestinal and deep venous thrombosis prophylaxis, on Lovenox. MD ASHIWN Chavez/MIKE /[id number]
[2020-05-19] VITALS (21 sets, daily range): BP systolic 117–162; BP diastolic 52–80
[2020-05-19] MEDS: ALBUMIN 25% 25GM 100ML 100 ML IV SCH
[2020-05-19 05:19] LABS: BASOPHILS % 0.2 % (0.0-1.0); EOSINOPHILS # (AUTO) 0.4 (0.0-0.4); EOSINOPHILS % 2.6 % (0.0-6.0); HEMATOCRIT 28.6 % (38.2-49.6); HEMOGLOBIN 8.9 g/dL (14.0-18.0); LYMPHOCYTES % 7.4 % (18.0-39.1); MEAN CORPUSCULAR HEMOGLOBIN 29.2 pg (28-32); MEAN CORPUSCULAR HGB CONC 31.1 g/dL (31-35); MEAN CORPUSCULAR VOLUME 93.8 fL (81-99); MONOCYTES # (AUTO) 0.8 (0.2-0.8); MONOCYTES % 5.8 % (4.4-11.3); NEUTROPHILS # (AUTO) 11.1 (2.1-6.9); NEUTROPHILS % 81.8 % (38.7-80.0); PLATELET COUNT 177 x10e3/uL (140-360); RED BLOOD COUNT 3.05 x10e6/uL (4.3-5.7); RED CELL DISTRIBUTION WIDTH 13.2 % (11.7-14.4)
[2020-05-19 05:46] LABS: ALANINE AMINOTRANSFERASE 26 IU/L (0-55); ALBUMIN 2.3 g/dL (3.5-5.0); ALBUMIN/GLOBULIN RATIO 0.6 (0.8-2.0); ALKALINE PHOSPHATASE 80 IU/L (40-150); ANION GAP 12.9 mmol/L (8-16); BLOOD UREA NITROGEN 15 mg/dL (7-26); BUN/CREATININE RATIO 27 (6-25); CARBON DIOXIDE 33 mmol/L (22-29); CHLORIDE 101 mmol/L (98-107); CREATININE, SERUM 0.56 mg/dL (0.72-1.25); EST GLOMERULAR FILTRATION RATE > 60 ML/MIN (60-); GLUCOSE 110 mg/dL (74-118); POTASSIUM 3.9 mmol/L (3.5-5.1); SODIUM 143 mmol/L (136-145)
[2020-05-19] MEDS: MEROPENEM 1GM 100 ML IV SCH ×2 (05:46→13:00)
[2020-05-19] MEDS: ROCURONIUM BROMIDE 250 MG in SODIUM CHLORIDE 0.9% 250ML 225 ML IV SCH ×2 (05:47→07:52)
[2020-05-19] MEDS: MIDAZOLAM HCL 5MG/ML 10ML VIAL 100 ML IV PRN ×3 (05:48→18:16)
[2020-05-19] MEDS: FENTANYL 2000MCG/NS 250 250 ML IV PRN ×3 (07:52→22:00)
[2020-05-19] MEDS: ENOXAPARIN SOD INJ 40 MG/0.4 ML SYR SC SCH (08:00)
[2020-05-19 11:18] LABS: ABG HCO3 37 mmol/L (22-26); ABG PCO2 66 mmHg (35-45); ABG PH 7.35 (7.35-7.45); ABG PO2 63 mmHg (80-105); ABG TCO2 39
--- NOTE | 2020-05-19 11:45 | Diagnostic Imaging Report ---
EXAMINATION: CHEST SINGLE (PORTABLE) INDICATION: Respiratory failure COMPARISON: Multiple prior chest radiograph, most recently 05/17/2020 FINDINGS: LINES/TUBES:Support lines and tubes unchanged. LUNGS:The lungs are moderately inflated. Unchanged bilateral lower lung patchy opacities. PLEURA:No pleural effusion or pneumothorax. MEDIASTINUM:The cardiomediastinal silhouette appears unchanged in size and shape. BONES/SOFT TISSUES:No acute osseous injury. ABDOMEN:No free air under the diaphragm. IMPRESSION: No significant interval change. Signed by: Nicki Durham MD on 05/19/2020 11:42 AM
[2020-05-19 14:06] LABS: CLARITY,URINE CLEAR (CLEAR); COLOR,URINE YELLOW (YELLOW)
[2020-05-19 14:07] LABS: KETONES,URINE NEGATIVE (NEGATIVE); LEUKOCYTE ESTERASE ,URINE TRACE (NEGATIVE); NITRITE,URINE NEGATIVE (NEGATIVE); PROTEIN,URINE DIPSTICK 2+ (NEGATIVE)
[2020-05-19 14:08] LABS: BACTERIA,URINE RARE /HPF; BILIRUBIN,URINE SMALL (NEGATIVE); EPITHELIAL CELLS,URINE FEW /LPF; URINE UROBILINOGEN 8 mg/dL (0.2 - 1)
--- NOTE | 2020-05-19 16:50 | NUR ---
progress note seen and examined He remains on Versed, fentanyl, and rocuronium. PHYSICAL EXAMINATION: VITAL SIGNS: The T-max is 100.0. The blood pressure is 120/47, respiratory rate is 34, and he is synchronized with the vent. Pulse is 77. HEENT: There is an oral endotracheal tube. CARDIAC: Reveals regular rate and rhythm with normal S1 and S2. LUNGS: Auscultation of lungs reveals crackles at the bases. There is no wheezing. ABDOMEN: Soft and nontender. There is no rebound or guarding. EXTREMITIES: Shows no leg edema or calf tenderness. LABORATORY DATA: White blood cell count is 12.2 and hemoglobin is 9.2. The platelet count is 179. BUN to creatinine ratio is normal. Other electrolytes are within normal limits and the albumin is 1.2. IMPRESSION: 1. Acute respiratory failure. 2. Viral pneumonia and COVID-19 infection. 3. Acute kidney injury. 4. Diabetes. cont same
[2020-05-19] MEDS: FLUCONAZOLE 400MG/200ML BAG 200 ML IV SCH (18:07)
[2020-05-19] MEDS: ACETAMINOPHEN 325 MG TAB PO PRN (18:17)
[2020-05-19] MEDS ORDERED: SODIUM CHLORIDE 0.9% 250ML 250 ML ONE (18:19)
[2020-05-19] MEDS ORDERED: FUROSEMIDE INJ 10 MG/ML 2 ML VIAL IV SCH (19:30)
--- NOTE | 2020-05-19 22:16 | Progress Note ---
DATE: 05/19/2020 Cardiology Progress Note SUBJECTIVE: Mr. Bob remains intubated and sedated. OBJECTIVE: VITAL SIGNS: Heart rate 92, O2 saturation 98% in the support. Afebrile. GENERAL: Intubated, sedated. HEENT: ET tube in place. Dry mucosa. NECK: No JVD. CHEST: With rales and decreased breath sounds. CARDIOVASCULAR: Regular rate and rhythm. Normal S1, S2. ABDOMEN: Nondistended. EXTREMITIES: Euthermic. Trace edema. CARDIOVASCULAR MEDICATIONS: Reviewed. STUDIES: Reviewed. ASSESSMENT: A 65-year-old man with: 1. Coronavirus disease-2019 infection. 2. Community-acquired pneumonia. 3. Acute respiratory failure. 4. Hypertension. 5. Chronic diastolic heart failure. RECOMMENDATIONS: 1. Continue vent support. 2. Monitor volume status. 3. ID adjusting antibiotics. Per nurse report, the patient remains with fever spikes. MD CHRISTINE Bal/MIKE /[id number]
--- NOTE | 2020-05-19 22:26 | Progress Note ---
DATE: 05/19/2020 SUBJECTIVE: Intubated and sedated. Cannot give any history. OBJECTIVE: VITAL SIGNS: Temperature 102.0, pulse 105, respiratory rate 34, blood pressure 129/56. GENERAL: Intubated and sedated. SKIN: No rash. HEENT: Endotracheal tube in place. LUNGS: Decreased. HEART: Tachycardic. Normal S1, S2. GI: Abdomen is soft, nondistended. NEUROLOGIC: Sedated. PSYCHIATRIC: Sedated. LABORATORY DATA: White count 13.6, hemoglobin 8.9, platelet count 177, the creatinine 0.56. ASSESSMENT AND PLAN: 1. Acute respiratory failure due to COVID19 pneumonia. We will continue to monitor fever. Await further recommendations from Infectious Disease specialist. We will continue meropenem. We will continue vent management per ordnance artificer helper. The patient has completed his Decadron. 2. Gastrointestinal and deep venous thrombosis prophylaxis. Lovenox. MD ASHWIN Chavez/MIKE /[id number]
[2020-05-19 23:26] LABS: ABG HCO3 35 mmol/L (22-26); ABG PCO2 64 mmHg (35-45); ABG PH 7.34 (7.35-7.45); ABG PO2 62 mmHg (80-105); ABG TCO2 37
[2020-05-20] VITALS (18 sets, daily range): BP systolic 97–157; BP diastolic 43–67
[2020-05-20] MEDS: ROCURONIUM BROMIDE 250 MG in SODIUM CHLORIDE 0.9% 250ML 225 ML IV SCH ×3 (01:00→16:05)
[2020-05-20] MEDS: ACETAMINOPHEN 325 MG TAB PO PRN (03:10)
[2020-05-20] MEDS: LATANOPROST(OPTH) 2.5 ML BTL OP SCH (03:13)
[2020-05-20] MEDS: MEROPENEM 1GM 100 ML IV SCH ×3 (03:16→14:55)
[2020-05-20] MEDS: ENOXAPARIN SOD INJ 40 MG/0.4 ML SYR SC SCH ×2 (03:17→08:40)
[2020-05-20] MEDS: VANCOMYCIN HCL 1.25 GM in SODIUM CHLORIDE 0.9% 250ML 250 ML IV SCH ×2 (03:24→06:06)
[2020-05-20 05:39] LABS: BASOPHILS % 0.2 % (0.0-1.0); EOSINOPHILS # (AUTO) 0.3 (0.0-0.4); EOSINOPHILS % 2.6 % (0.0-6.0); LYMPHOCYTES % 8.1 % (18.0-39.1); MEAN CORPUSCULAR HGB CONC 30.3 g/dL (31-35); MEAN CORPUSCULAR VOLUME 95.9 fL (81-99); MONOCYTES # (AUTO) 0.7 (0.2-0.8); MONOCYTES % 5.6 % (4.4-11.3); NEUTROPHILS # (AUTO) 10.1 (2.1-6.9); NEUTROPHILS % 80.5 % (38.7-80.0); PLATELET COUNT 143 x10e3/uL (140-360); RED BLOOD COUNT 2.17 x10e6/uL (4.3-5.7); RED CELL DISTRIBUTION WIDTH 13.2 % (11.7-14.4)
[2020-05-20 06:01] LABS: ALANINE AMINOTRANSFERASE 18 IU/L (0-55); ALBUMIN 1.4 g/dL (3.5-5.0); ALBUMIN/GLOBULIN RATIO 0.5 (0.8-2.0); ALKALINE PHOSPHATASE 72 IU/L (40-150); ANION GAP 7.8 mmol/L (8-16); BLOOD UREA NITROGEN 15 mg/dL (7-26); BUN/CREATININE RATIO 32 (6-25); CARBON DIOXIDE 27 mmol/L (22-29); CHLORIDE 111 mmol/L (98-107); CREATININE, SERUM 0.47 mg/dL (0.72-1.25); EST GLOMERULAR FILTRATION RATE > 60 ML/MIN (60-); GLUCOSE 96 mg/dL (74-118); POTASSIUM 3.8 mmol/L (3.5-5.1); SODIUM 142 mmol/L (136-145)
[2020-05-20 06:05] LABS: CALCIUM 5.4 mg/dL (8.4-10.2)
[2020-05-20] MEDS: FENTANYL 2000MCG/NS 250 250 ML IV PRN ×2 (06:07→16:04)
[2020-05-20 06:23] LABS: HEMATOCRIT 20.8 % (38.2-49.6); HEMOGLOBIN 6.3 g/dL (14.0-18.0)
--- NOTE | 2020-05-20 08:18 | Diagnostic Imaging Report ---
EXAMINATION: CHEST SINGLE (PORTABLE) INDICATION: Respiratory failure COMPARISON: Multiple prior chest x-rays including most recent on 05/19/2020 FINDINGS: TUBES and LINES: Stable endotracheal tube which terminates approximately at the mid thoracic trachea. Enteric tube which courses below the diaphragm and beyond field of view. LUNGS: Accounting for differences in technique, no significant interval change in multifocal airspace and interstitial opacities. PLEURA: No pleural effusion or pneumothorax. HEART AND MEDIASTINUM: The cardiomediastinal silhouette is obscured by airspace opacities. BONES AND SOFT TISSUES: No acute osseous or soft tissue finding.. UPPER ABDOMEN: No free air under the diaphragm. IMPRESSION: 1. Stable support lines and tubes. 2. No significant interval change in multifocal airspace and interstitial opacities. Signed by: Jai Marcial MD on 05/20/2020 8:14 AM
[2020-05-20] MEDS ORDERED: SODIUM CHLORIDE 0.9% 250ML 250 ML IV ONE (10:15)
[2020-05-20 10:50] LABS: ABG HCO3 36 mmol/L (22-26); ABG PCO2 76 mmHg (35-45); ABG PH 7.28 (7.35-7.45); ABG PO2 61 mmHg (80-105); ABG TCO2 38
[2020-05-20] MEDS: MIDAZOLAM HCL 5MG/ML 10ML VIAL 100 ML IV PRN (16:00)
--- NOTE | 2020-05-20 18:25 | Progress Note ---
DATE: SUBJECTIVE: The patient is afebrile. He has required 2 units of packed red blood cells today. He remains on a PRVC mode of ventilation with the FiO2 of 90% and PEEP of 13. His tidal volume is 370 and his respiratory rate is 34. PHYSICAL EXAMINATION: VITAL SIGNS: Blood pressure is 100/45, pulse is 83. HEENT: No facial swelling or erythema. The oropharynx is normal. LYMPHATIC: No submandibular, cervical, or supraclavicular adenopathy. CARDIAC: Regular rate and rhythm with normal S1, S2. LUNGS: Auscultation of lungs reveals rhonchorous breath sounds bilaterally. There is no wheezing. ABDOMEN: Soft, nontender. There is no rebound or guarding. EXTREMITIES: No leg edema or calf tenderness. There is no cyanosis or clubbing. SKIN: No rashes. NEUROLOGICAL: The patient to be sedated on Versed and fentanyl along with rocuronium. LABORATORY DATA: White blood cell count is 12.55 and hemoglobin is 6.3. The platelet count is 143. BUN to creatinine ratio is normal. Other electrolytes are within normal limits. Albumin is 1.4. RADIOGRAPHIC DATA: Chest x-ray shows bilateral infiltrates. IMPRESSION: 1. Acute respiratory failure. 2. Viral pneumonia and coronavirus disease-19 infection. 3. Anemia secondary to chronic blood loss. 4. Acute kidney injury. 5. Diabetes. 6. Hypertension. PLAN: 1. The patient to receive 2 units of packed red blood cells today. 2. Begin Lasix along with albumin. 3. Continue to monitor ABGs and adjust ventilator settings. 4. Continue enteral feedings. 5. Continue to monitor and control blood sugars. Greater than 35 minutes in direct critical care time. Manuel Quigley MD [facility]/MODL /[id number]
--- NOTE | 2020-05-20 18:28 | NUR ---
INFECTIOUS DISEASE PROGRESS NOTE DR. RUTHERFORD SUBJECTIVE intubated, sedated PHYSICAL EXAMINATION: VITAL SIGNS: reviewed HEENT: There is an oral endotracheal tube. CARDIAC: Reveals regular rate and rhythm with normal S1 and S2. LUNGS: Auscultation of lungs reveals crackles at the bases. There is no wheezing. ABDOMEN: Soft and nontender. There is no rebound or guarding. EXTREMITIES: Shows no leg edema or calf tenderness. LABORATORY DATA: reviewed RADIOLOGY DATA: reviewed IMPRESSION: 1. Acute respiratory failure. 2. Viral pneumonia and COVID-19 infection. 3. Acute kidney injury. 4. Diabetes 5. Yeast in urine/sputum PLAN: continue the same Diflucan Merrem Vanc PT SEEN AND EXAMINED BY DR RUTHERFORD
[2020-05-20] MEDS ORDERED: SODIUM CHLORIDE 0.9% 250ML 250 ML ONE (19:16)
--- NOTE | 2020-05-20 22:00 | Progress Note ---
DATE: 05/20/2020 SUBJECTIVE: Intubated, sedated, cannot give any history. OBJECTIVE: VITAL SIGNS: Temperature 101.7, pulse 83, respiratory rate 34, blood pressure 100/45. GENERAL: Intubated, sedated. SKIN: No rash. HEENT: Endotracheal tube in place. LUNGS: Decreased breath sounds. HEART: Regular rate and rhythm. Normal S1 and S2. GI: Abdomen is soft, nondistended. NEUROLOGIC: Sedated. PSYCHIATRIC: Sedated. LABORATORY DATA: White count 12.6, hemoglobin 6.3, platelet count 143. BUN 15, creatinine 0.47. ASSESSMENT AND PLAN: 1. Acute respiratory failure due to coronavirus disease 2019 pneumonia. Fluconazole and vancomycin were added for his fever. We will continue meropenem. Also, we will continue vent management per plastic press molder. The patient has completed his Decadron. 2. Acute blood loss anemia. The patient will get 2 units of packed red blood cells today. If this continues, we may want to consider a CT of the abdomen and pelvis to rule out bleeding. 3. Gastrointestinal deep venous thrombosis prophylaxis. Continue Lovenox. MD ASHWIN Chavez/MIKE /[id number]
--- NOTE | 2020-05-20 22:21 | Progress Note ---
DATE: 05/20/2020 Cardiology Progress Note SUBJECTIVE: Intubated and sedated. OBJECTIVE: VITAL SIGNS: Temperature 100, respiratory rate 34, heart rate 80, blood pressure 100/45, O2 saturation 90%. BMI 35. On vent support. GENERAL: Intubated and sedated. HEENT: ET tube in place. Dry mucosa. NECK: Supple. CHEST: With rales and decreased breath sounds. CARDIOVASCULAR: Regular rate and rhythm. Normal S1, S2. ABDOMEN: Soft. EXTREMITIES: Trace edema and normothermic. CARDIOVASCULAR MEDICATIONS: Reviewed. Furosemide 40 mg every 12 hours, hydralazine 10 mg q.4 hours, Lovenox 40 mg q.12 hours. LABORATORY DATA: Studies reviewed. Sodium 142, potassium 3.8, chloride 111, bicarbonate 27, BUN 15, creatinine 0.4, glucose 96. White blood cells 12, hemoglobin 6.3, platelets 143, PTT 18, PTT 30, INR 1.4, AST 21, ALT 18, and alkaline phosphatase 72. ASSESSMENT AND PLAN: 1. A 65-year-old man presents with COVID-19 infection, community-acquired pneumonia, acute on chronic diastolic heart failure, hypertension, and obesity. Continue current cardiovascular medications. Plan for Lasix and albumin administration to optimize intravascular space. 2. Noted anemia. Plans for PRBC transfusion 2 units per primary service note. Monitor H and H for signs of gross bleeding. Mario Harris MD [facility]/MODL /[id number]
[2020-05-21] VITALS (15 sets, daily range): BP systolic 101–166; BP diastolic 62–84
[2020-05-21] MEDS: ALBUMIN 25% 25GM 100ML 0.25 GM/ML BTL IV SCH ×4 (02:56→17:08)
[2020-05-21] MEDS: FUROSEMIDE INJ 10 MG/ML 4 ML VIAL IV SCH ×2 (02:57→09:00)
[2020-05-21] MEDS: VANCOMYCIN HCL 1.25 GM in SODIUM CHLORIDE 0.9% 250ML 250 ML IV SCH ×4 (02:57→20:55)
[2020-05-21] MEDS: FLUCONAZOLE 400MG/200ML BAG 200 ML IV SCH ×2 (02:57→18:13)
[2020-05-21] MEDS: MEROPENEM 1GM 100 ML IV SCH ×4 (02:57→22:52)
[2020-05-21] MEDS: ENOXAPARIN SOD INJ 40 MG/0.4 ML SYR SC SCH ×3 (02:57→20:59)
[2020-05-21] MEDS: LATANOPROST(OPTH) 2.5 ML BTL OP SCH ×2 (02:57→20:56)
[2020-05-21] MEDS: FENTANYL 2000MCG/NS 250 250 ML IV PRN ×3 (02:59→21:01)
[2020-05-21 03:20] LABS: ABG HCO3 38 mmol/L (22-26); ABG PCO2 67 mmHg (35-45); ABG PH 7.36 (7.35-7.45); ABG PO2 40 mmHg (80-105); ABG TCO2 40
[2020-05-21 04:17] LABS: BASOPHILS # (AUTO) 0.1 (0.0-0.1); BASOPHILS % 0.3 % (0.0-1.0); EOSINOPHILS # (AUTO) 0.2 (0.0-0.4); EOSINOPHILS % 1.3 % (0.0-6.0); HEMATOCRIT 32.7 % (38.2-49.6); HEMOGLOBIN 10.1 g/dL (14.0-18.0); LYMPHOCYTES # (AUTO) 0.9 (1.0-3.2); LYMPHOCYTES % 5.3 % (18.0-39.1); MEAN CORPUSCULAR HEMOGLOBIN 29.4 pg (28-32); MEAN CORPUSCULAR HGB CONC 30.9 g/dL (31-35); MEAN CORPUSCULAR VOLUME 95.3 fL (81-99); MONOCYTES % 5.7 % (4.4-11.3); NEUTROPHILS # (AUTO) 14.7 (2.1-6.9); NEUTROPHILS % 83.8 % (38.7-80.0); PLATELET COUNT 185 x10e3/uL (140-360); RED CELL DISTRIBUTION WIDTH 14.3 % (11.7-14.4)
[2020-05-21 04:28] LABS: RED BLOOD COUNT 3.43 x10e6/uL (4.3-5.7)
[2020-05-21 04:57] LABS: ALANINE AMINOTRANSFERASE 31 IU/L (0-55); ALBUMIN 2.3 g/dL (3.5-5.0); ALBUMIN/GLOBULIN RATIO 0.5 (0.8-2.0); ALKALINE PHOSPHATASE 106 IU/L (40-150); ANION GAP 13.9 mmol/L (8-16); BLOOD UREA NITROGEN 21 mg/dL (7-26); BUN/CREATININE RATIO 31 (6-25); CARBON DIOXIDE 33 mmol/L (22-29); CHLORIDE 97 mmol/L (98-107); CREATININE, SERUM 0.67 mg/dL (0.72-1.25); EST GLOMERULAR FILTRATION RATE > 60 ML/MIN (60-); GLUCOSE 146 mg/dL (74-118); SODIUM 139 mmol/L (136-145)
[2020-05-21 04:59] LABS: CALCIUM 8.4 mg/dL (8.4-10.2); POTASSIUM 4.9 mmol/L (3.5-5.1)
--- NOTE | 2020-05-21 05:36 | Diagnostic Imaging Report ---
EXAMINATION: CHEST SINGLE (PORTABLE) INDICATION: Respiratory failure COMPARISON: Chest x-ray 05/20/2020 FINDINGS: TUBES and LINES: ET tube tip 7.3 cm above cadence. Left upper extremity PICC, tip in the mid SVC. Enteric tube tip in the left upper abdomen. LUNGS/PLEURA: Extensive airspace disease worse in the mid to lower lungs. Obscured hemidiaphragms. No pneumothorax. HEART AND MEDIASTINUM: The cardiomediastinal silhouette is unremarkable. BONES AND SOFT TISSUES: No acute osseous lesion. Soft tissues are unremarkable. UPPER ABDOMEN: No free air under the diaphragm. IMPRESSION: Lines and tubes as above. Extensive airspace disease/pneumonia. Possible pleural effusions. Signed by: Mal Donaldson DO on 05/21/2020 5:33 AM
[2020-05-21] MEDS: ROCURONIUM BROMIDE 250 MG in SODIUM CHLORIDE 0.9% 250ML 225 ML IV SCH ×2 (06:14→12:30)
--- NOTE | 2020-05-21 06:43 | NUR ---
PATIENT CONSISTENTLY SATTING BETWEEN 70'S AND HIGH 80'S THROUGHOUT THE NIGHT, TEMP 102.9 DECREASED TO 101.5 AFTER TYLENOL. PRONED AT 0530. TO
[2020-05-21 09:55] LABS: ABG HCO3 35 mmol/L (22-26); ABG PCO2 67 mmHg (35-45); ABG PH 7.32 (7.35-7.45); ABG PO2 75 mmHg (80-105)
[2020-05-21 09:56] LABS: ABG TCO2 37
--- NOTE | 2020-05-21 14:18 | Progress Note ---
DATE: SUBJECTIVE: The patient is afebrile. T-max is 101.1. He is currently on a PRVC mode of ventilation, rate of 34 with a tidal volume of 370 and FiO2 of 100%. His PEEP is set at 12. PHYSICAL EXAMINATION: VITAL SIGNS: The patient's blood pressure is 103/65 and pulse is 110 to 120. He is on above mentioned ventilator settings. He has no facial swelling or erythema. There is an oral endotracheal tube. CARDIAC: Reveals regular rate and rhythm with normal S1, S2. LUNGS: Auscultation of lungs reveals crackles at the bases. There is no wheezing. ABDOMEN: Soft and nontender. There is no rebound or guarding. EXTREMITIES: Shows no leg edema or calf tenderness. There is no cyanosis or clubbing. SKIN: Shows no rashes. NEUROLOGICAL: Shows no focal abnormalities. The patient is sedated on Versed and rocuronium as well as fentanyl. RADIOGRAPHIC DATA: Chest x-ray shows bilateral opacities. IMPRESSION: 1. Acute respiratory failure. 2. Viral pneumonia and COVID-19 infection. 3. Anemia secondary to chronic blood loss. 4. Diabetes. 5. Hypertension. PLAN: 1. Lasix drip along with albumin today. 2. Continue current ventilator settings and monitor ABGs. 3. Enteral feedings. 4. Continue current antibiotics. 5. Continue to monitor control blood sugars. 6. Greater than 35 minutes in direct critical care time. Manuel Quigley MD [facility]/MODL /[id number]
[2020-05-21] MEDS: FUROSEMIDE INJ 100 MG in SODIUM CHLORIDE 0.9% 100 ML 90 ML IV SCH (18:14)
[2020-05-21 20:19] LABS: ABG HCO3 35 mmol/L (22-26); ABG PCO2 71 mmHg (35-45); ABG PH 7.31 (7.35-7.45); ABG PO2 86 mmHg (80-105); ABG TCO2 37
[2020-05-21] MEDS: MIDAZOLAM HCL 5MG/ML 10ML VIAL 100 ML IV PRN (21:01)
--- NOTE | 2020-05-21 22:00 | Progress Note ---
DATE: 05/21/2020 Cardiology Progress Note SUBJECTIVE: Mr. Bob remains intubated, sedated, today is in prone position. OBJECTIVE: VITAL SIGNS: Temperature is 100.2, heart rate is 117, sinus tachycardia on telemetry, blood pressure 103/65, respiratory rate 34, O2 saturation 94% on vent support, FiO2 100%, PEEP of 14, respiratory rate 34, and a vent tidal volume of 370. GENERAL: Intubated, sedated, prone position. HEENT: Some mild facial swelling. ET tube in place. NECK: Supple. CHEST: With rales and decreased breath sounds. CARDIOVASCULAR: Regular rate and rhythm. Normal S1, S2. Distant heart sounds. ABDOMEN: Deferred. The patient is in prone position. EXTREMITIES: With edema. CARDIOVASCULAR MEDICATIONS: Reviewed. Lovenox 40 mg every 12 hours, albumin and furosemide drip, hydralazine 10 mg q.4 hours. LABORATORY DATA: Studies reviewed. Creatinine 0.8, sodium 139. White blood cells 17, hemoglobin 10, platelets 185. INR 1.4. ASSESSMENT AND PLAN: A 65-year-old man with coronavirus disease-19 infection, community-acquired pneumonia and acute respiratory failure, hypertension, obesity, acute on chronic diastolic heart failure, anemia. RECOMMENDATIONS: 1. Continue diuretics. Agree with albumin to assist with movement of extravascular volume. 2. Antibiotics. Defer to ID. 3. Continue Lovenox and monitor H and H. 4. Blood pressure currently at goal. Continue to monitor p.r.n. hydralazine. MD CHRISTINE Bal/SHIRLEYL /[id number]
[2020-05-22] VITALS (24 sets, daily range): BP systolic 103–145; BP diastolic 53–84
--- NOTE | 2020-05-22 00:50 | Progress Note ---
DATE: 05/21/2020 SUBJECTIVE: Intubated, sedated, cannot give history. OBJECTIVE: VITAL SIGNS: Temperature 98.6, pulse 117, respiratory rate 34, blood pressure 103/65. GENERAL: Sedated, intubated. SKIN: No rash. HEENT: Endotracheal tube in place. LUNGS: Decreased breath sounds. HEART: Tachycardic. Normal S1, S2. GI: Abdomen is soft, nondistended. NEUROLOGIC: Sedated. PSYCHIATRIC: Sedated. LABORATORY DATA: White count 17, hemoglobin 10, platelet count 185, creatinine 0.67. ASSESSMENT AND PLAN: 1. Acute respiratory failure due to coronavirus disease-19 pneumonia. The patient appears to be afebrile now. We will continue fluconazole, IV vancomycin, and meropenem per Infectious Disease specialist. We will continue vent management per drop count associate. Of note, the patient has completed his Decadron. 2. Likely no acute blood loss anemia, possibly yesterday's blood test was an error. The patient did get 1 unit of packed red blood cells. 3. Gastrointestinal and deep vein thrombosis prophylaxis. Continue Lovenox. Stacyching MD ASHWIN Jean-Baptiste/MIKE /[id number]
[2020-05-22 05:34] LABS: BASOPHILS # (AUTO) 0.1 (0.0-0.1); BASOPHILS % 0.3 % (0.0-1.0); EOSINOPHILS # (AUTO) 0.5 (0.0-0.4); HEMATOCRIT 30.3 % (38.2-49.6); HEMOGLOBIN 9.2 g/dL (14.0-18.0); LYMPHOCYTES # (AUTO) 1.1 (1.0-3.2); LYMPHOCYTES % 7.4 % (18.0-39.1); MEAN CORPUSCULAR HEMOGLOBIN 28.8 pg (28-32); MEAN CORPUSCULAR HGB CONC 30.4 g/dL (31-35); MONOCYTES # (AUTO) 0.8 (0.2-0.8); MONOCYTES % 5.6 % (4.4-11.3); NEUTROPHILS # (AUTO) 11.9 (2.1-6.9); NEUTROPHILS % 79.7 % (38.7-80.0); PLATELET COUNT 174 x10e3/uL (140-360); RED BLOOD COUNT 3.19 x10e6/uL (4.3-5.7); RED CELL DISTRIBUTION WIDTH 14.3 % (11.7-14.4)
[2020-05-22 06:43] LABS: ALANINE AMINOTRANSFERASE 45 IU/L (0-55); ALBUMIN 2.9 g/dL (3.5-5.0); ALBUMIN/GLOBULIN RATIO 0.7 (0.8-2.0); ALKALINE PHOSPHATASE 83 IU/L (40-150); ANION GAP 14.5 mmol/L (8-16); BLOOD UREA NITROGEN 28 mg/dL (7-26); BUN/CREATININE RATIO 36 (6-25); CALCIUM 8.3 mg/dL (8.4-10.2); CARBON DIOXIDE 34 mmol/L (22-29); CHLORIDE 99 mmol/L (98-107); CREATININE, SERUM 0.77 mg/dL (0.72-1.25); EST GLOMERULAR FILTRATION RATE > 60 ML/MIN (60-); GLUCOSE 122 mg/dL (74-118); POTASSIUM 4.5 mmol/L (3.5-5.1); SODIUM 143 mmol/L (136-145)
[2020-05-22] MEDS: MEROPENEM 1GM 100 ML IV SCH ×3 (06:49→22:26)
[2020-05-22] MEDS: ALBUMIN 25% 25GM 100ML 0.25 GM/ML BTL IV SCH ×2 (06:49→06:52)
[2020-05-22] MEDS: VANCOMYCIN HCL 1.25 GM in SODIUM CHLORIDE 0.9% 250ML 250 ML IV SCH ×2 (06:49→17:58)
[2020-05-22] MEDS: MIDAZOLAM HCL 5MG/ML 10ML VIAL 100 ML IV PRN ×2 (06:51→16:00)
[2020-05-22] MEDS: ENOXAPARIN SOD INJ 40 MG/0.4 ML SYR SC SCH ×2 (08:20→21:23)
--- NOTE | 2020-05-22 08:40 | Diagnostic Imaging Report ---
EXAMINATION: CHEST SINGLE (PORTABLE) INDICATION: Respiratory failure COMPARISON: Multiple prior chest radiographs, most recently of 05/21/2020 FINDINGS: LINES/TUBES:Endotracheal tube terminates 7 cm above the cadence. Enteric tube projects below the diaphragm with tip not visualized. Left PICC line unchanged. EKG leads overlie the chest. LUNGS:The lungs are moderately inflated. Unchanged bilateral multifocal lower lung predominant airspace opacities. PLEURA:No pleural effusion or pneumothorax. MEDIASTINUM:The cardiomediastinal silhouette appears unchanged in size and shape. BONES/SOFT TISSUES:No acute osseous injury. ABDOMEN:No free air under the diaphragm. IMPRESSION: No significant interval change. Signed by: Nicki Durham MD on 05/22/2020 8:37 AM
[2020-05-22] MEDS: ROCURONIUM BROMIDE 250 MG in SODIUM CHLORIDE 0.9% 250ML 225 ML IV SCH ×2 (10:26→21:36)
[2020-05-22] MEDS: FENTANYL 2000MCG/NS 250 250 ML IV PRN ×2 (10:27→21:36)
[2020-05-22 10:38] LABS: ABG PH 7.32 (7.35-7.45)
[2020-05-22 10:39] LABS: ABG HCO3 36 mmol/L (22-26); ABG PCO2 70 mmHg (35-45); ABG PO2 80 mmHg (80-105); ABG TCO2 38
[2020-05-22] MEDS: ACETAZOLAMIDE SODIUM 500 MG/VIAL IV SCH ×2 (11:21→22:26)
--- NOTE | 2020-05-22 11:22 | Progress Note ---
DATE: SUBJECTIVE: The patient is currently on pressure regulated volume control at a rate of 34 with a tidal volume of 370. His PEEP is set at 13 and his FiO2 is 100%. He is receiving a Lasix drip and is negative 800 mL overnight. He continues on Versed, fentanyl, and rocuronium. PHYSICAL EXAMINATION: VITAL SIGNS: The blood pressure is 112/56, saturation is 94%. HEENT: Shows no facial swelling or erythema. There is an oral endotracheal tube. LYMPHATIC: Shows no submandibular, cervical or supraclavicular adenopathy. CARDIAC: Reveals regular rate and rhythm with normal S1 and S2. LUNGS: Auscultation of lungs reveals crackles at the bases. There is no wheezing. ABDOMEN: Soft and nontender. There is no rebound or guarding. EXTREMITIES: Shows no leg edema or calf tenderness. There is no cyanosis or clubbing. SKIN: Shows no rashes. NEUROLOGICAL: Shows no focal abnormalities. The patient is sedated. LABORATORY DATA: BUN to creatinine ratio is 28 to 0.77. The carbon dioxide is 34 and the other electrolytes are within normal limits. White blood cell count is 14.9 and hemoglobin is 9.2. The platelet count is 171. RADIOGRAPHIC DATA: Chest x-ray shows bilateral infiltrates. IMPRESSION: 1. Acute respiratory failure. 2. Viral pneumonia and COVID-19 infection. 3. Anemia secondary to chronic blood loss. 4. Diabetes. 5. Hypertension. PLAN: 1. Continue Lasix drip and begin Diamox as a supplement. 2. Continue current ventilator settings and monitor ABGs. 3. Place the patient back in prone position. 4. Continue enteral feedings. 5. Continue antibiotics. 6. Continue to monitor control blood sugars. 7. Greater than 35 minutes in direct critical care time. Manuel Quigley MD [facility]/MODL /[id number]
--- NOTE | 2020-05-22 12:28 | Progress Note ---
DATE: 05/22/2020 Cardiology Progress Note SUBJECTIVE: Intubated and sedated. OBJECTIVE: Vent support, FiO2 100%, respiratory rate 34, PEEP of 14, tidal volume 370. VITAL SIGNS: Temperature 99.9, heart rate 94, blood pressure 112/56, respiratory rate 34, O2 saturation 93%, BMI 35. GENERAL: Intubated, sedated. NECK: Supple. CHEST: With rales and decreased breath sounds. CARDIOVASCULAR: Regular rate and rhythm. Normal S1, S2. ABDOMEN: Soft. Bowel sounds positive. EXTREMITIES: With edema and normochromic. CARDIOVASCULAR MEDICATIONS: Reviewed. Lovenox 40 mg q. 12 hours, furosemide IV drip, hydralazine p.r.n. 10 mg q.4 hours. LABORATORY DATA: Studies reviewed. Potassium 4.5, bicarbonate 34, creatinine 0.7, glucose 122, white blood cells 14, hemoglobin 9.2, platelets 174. ASSESSMENT AND PLAN: 1. A 65-year-old man with COVID-19 infection, community-acquired pneumonia, acute respiratory failure requiring ventilatory support and anemia. Recommend continue diuretics for acute on chronic diastolic heart failure and volume overload. 2. Blood pressure adequately controlled. Continue hydralazine as needed. 3. Continue Lovenox. Mario Harris MD [facility]/MIKE /[id number]
[2020-05-22] MEDS: FUROSEMIDE INJ 100 MG in SODIUM CHLORIDE 0.9% 100 ML 90 ML IV SCH (12:46)
--- NOTE | 2020-05-22 16:59 | NUR ---
Nutrition Intervention Note RD Recommendation(s) for Physician: -Recommend modifying tube feeding to Vital AF 1.2 @ goal rate of 55 mL/hr (provides 1584 kcal, 99 g protein). Water/fluid management per MD Plan of Care: RD following, monitoring for tolerance and adequacy, tube feed recommendation Nutrition reason for involvement: follow up RD Assessment 05/22: Follow up. Pt remains intubated, paralyzed, and sedated. TF documented as Glucerna 1.2 at 30 ml/hr currently, not meeting needs. Pt requiring proning at times. Pt with chest tubes to output. Current TF rec's remain appropriate. Chart reviewed. Will continue to monitor. 05/17: Follow up. Chart reviewed. Pt remains intubated. RN reports that pts tube feeding is at 10 mL/hr at this time and pt is in the prone position. Current recommendations remain appropriate. Will continue to monitor. 05/12: Pt was intubated yesterday and tube feeding was ordered. It is recorded that pt consumed 25% of breakfast on 05/10 and was previously consuming 50-100% of meals. Recommendations provided. Will continue to monitor. 05/09: 65 YOM admitted for hypoxia and pneumonia due to COVID-19. Pt assessed today for LOS. Attempted to call pt's room x 2, no answer- unable to obtain hx at this time. No wt loss or poor intake indicated at admit per MD notes. Pt with 50-100% intake since admit. Pt currently on Vapotherm per current respiratory status. Labs and meds reviewed. LBM 05/08, skin intact. Chart reviewed. Will continue to monitor. Principal Problems/Diagnoses: hypoxia, pneumonia due to COVID-19 PMH: HTN, HLD I/O: 1790/2640 GI: flat, soft abdomen, last recorded BM 05/22 Skin: no pressure ulcers noted Labs: 05/22: Na 143, K 4.5, BUN 28, Cr 0.77, Gluc 122, POC Gluc 122-136 (05/17/20) Na 141, K 4.2, BUN 18, Cr 0.61, Glu 87, Ca 8.7 (05/12/20) Na 141, K 5.4, BUN 33, Cr 0.76, Glu 118, Ca 7.9 Meds: abx IVF/Drips: Rocuronium drip, Fentanyl drip, Versed drip, Furosemide drip Ht: 66 inches Wt: 218 lbs BMI: 35.2 IBW: 142 lbs Malnutrition Evaluation (05/09/20) The patient does not meet criteria for a specified degree of malnutrition at this time. Will re-evaluate at follow-up as appropriate. Unable to assess due to current isolation precautions. Nutrition Prescription (Diet Order): Vital HP at 55 ml/hr (1200 kcal and 105 gm protein) Documented TF currently infusing per nurse case management: Glucerna 1.2 @ 30 mL/hr (provides 864 kcal, 43 g protein) Estimated Nutritional Needs: 0795-7273 calories/day (22-25 kcal/kg IBW) 97-129 g protein/day (1.5-2 g pro/kg IBW) Diet Adequacy: Not meeting calorie needs, Not meeting protein needs Tolerance: tolerating TF Diet Education Needs Assessment: Diet education is not indicated, pt is intubated Nutrition Care Level: moderate Nutrition Diagnosis: Inadequate oral intake related to acute respiratory failure/mechanical ventilation as evidenced by requiring enteral nutrition. Goal: Patient will meet 75-100% of estimated needs by follow up Progress: goal not met Interventions: - Composition, Rate, Route, Recommended Modifications Monitoring/Evaluation: -Total energy intake, Total protein intake, Formula/Solution, Weight change Signed: Carrie Corrigan RD, [place], [facility]
--- NOTE | 2020-05-22 17:00 | NUR ---
INFECTIOUS DISEASE PROGRESS NOTE DR. RUTHERFORD day 19 SUBJECTIVE intubated, sedated PHYSICAL EXAMINATION: VITAL SIGNS: reviewed HEENT: There is an oral endotracheal tube. CARDIAC: Reveals regular rate and rhythm with normal S1 and S2. LUNGS: Auscultation of lungs reveals crackles at the bases. There is no wheezing. ABDOMEN: Soft and nontender. There is no rebound or guarding. EXTREMITIES: Shows no leg edema or calf tenderness. LABORATORY DATA: reviewed RADIOLOGY DATA: reviewed IMPRESSION: 1. Acute respiratory failure. 2. Viral pneumonia and COVID-19 infection. 3. Acute kidney injury. 4. Diabetes 5. Yeast in urine/sputum cont as ordered
[2020-05-22] MEDS: FLUCONAZOLE 400MG/200ML BAG 200 ML IV SCH (17:58)
--- NOTE | 2020-05-22 18:00 | NUR ---
Patient placed in prone position per Dr. Steven Quigley's order at 1500. Will continue to monitor.
[2020-05-22] MEDS: ACETAMINOPHEN 325 MG TAB PO PRN (18:28)
[2020-05-22] MEDS: LATANOPROST(OPTH) 2.5 ML BTL OP SCH (21:00)
--- NOTE | 2020-05-22 22:10 | Progress Note ---
DATE: 05/22/2020 SUBJECTIVE: Intubated, sedated, cannot give any history. OBJECTIVE: VITAL SIGNS: Temperature 100.2, pulse 104, respiratory rate 34, and blood pressure 136/69. GENERAL: Intubated, sedated. SKIN: No rash. HEENT: Endotracheal tube in place. LUNGS: Decreased breath sounds. HEART: Tachycardic. Normal S1 and S2. GI: Abdomen is soft and nondistended. NEUROLOGIC: Sedated. PSYCHIATRIC: Sedated. LABORATORY DATA: Laboratory [place], white count 14.9, hemoglobin 9.2, and platelet count 174. Creatinine is 0.77. ASSESSMENT AND PLAN: 1. Acute respiratory failure due to COVID-19 pneumonia. We will continue IV antibiotics per Infectious Disease specialist. We will continue vent management per health science writer. 2. Chronic anemia, stable. 3. Gastrointestinal and deep venous thrombosis prophylaxis. Continue Lovenox. MD ASHWIN Chavez/MIKE /[id number]
[2020-05-22 22:41] LABS: ABG HCO3 32 mmol/L (22-26); ABG PCO2 74 mmHg (35-45); ABG PH 7.24 (7.35-7.45); ABG PO2 92 mmHg (80-105); ABG TCO2 34
[2020-05-23] VITALS (24 sets, daily range): BP systolic 97–153; BP diastolic 54–71
[2020-05-23] MEDS: MIDAZOLAM HCL 5MG/ML 10ML VIAL 100 ML IV PRN ×4 (02:12→17:37)
[2020-05-23 04:40] LABS: BASOPHILS # (AUTO) 0.1 (0.0-0.1); BASOPHILS % 0.4 % (0.0-1.0); EOSINOPHILS # (AUTO) 0.5 (0.0-0.4); EOSINOPHILS % 3.6 % (0.0-6.0); HEMATOCRIT 28.8 % (38.2-49.6); HEMOGLOBIN 8.5 g/dL (14.0-18.0); LYMPHOCYTES # (AUTO) 1.3 (1.0-3.2); LYMPHOCYTES % 9.6 % (18.0-39.1); MEAN CORPUSCULAR HEMOGLOBIN 28.8 pg (28-32); MEAN CORPUSCULAR HGB CONC 29.5 g/dL (31-35); MEAN CORPUSCULAR VOLUME 97.6 fL (81-99); MONOCYTES # (AUTO) 0.7 (0.2-0.8); MONOCYTES % 5.5 % (4.4-11.3); NEUTROPHILS # (AUTO) 10.2 (2.1-6.9); NEUTROPHILS % 76.1 % (38.7-80.0); PLATELET COUNT 187 x10e3/uL (140-360); RED BLOOD COUNT 2.95 x10e6/uL (4.3-5.7); RED CELL DISTRIBUTION WIDTH 14.5 % (11.7-14.4)
[2020-05-23] MEDS: ROCURONIUM BROMIDE 250 MG in SODIUM CHLORIDE 0.9% 250ML 225 ML IV SCH ×2 (04:48→14:41)
[2020-05-23] MEDS: FENTANYL 2000MCG/NS 250 250 ML IV PRN ×3 (04:48→22:16)
[2020-05-23 04:58] LABS: ALANINE AMINOTRANSFERASE 47 IU/L (0-55); ALBUMIN 2.1 g/dL (3.5-5.0); ALBUMIN/GLOBULIN RATIO 0.6 (0.8-2.0); ALKALINE PHOSPHATASE 87 IU/L (40-150); ANION GAP 11.7 mmol/L (8-16); BLOOD UREA NITROGEN 27 mg/dL (7-26); BUN/CREATININE RATIO 40 (6-25); CALCIUM 7.1 mg/dL (8.4-10.2); CARBON DIOXIDE 29 mmol/L (22-29); CHLORIDE 106 mmol/L (98-107); CREATININE, SERUM 0.67 mg/dL (0.72-1.25); EST GLOMERULAR FILTRATION RATE > 60 ML/MIN (60-); GLUCOSE 93 mg/dL (74-118); POTASSIUM 3.7 mmol/L (3.5-5.1); SODIUM 143 mmol/L (136-145)
[2020-05-23] MEDS: VANCOMYCIN HCL 1.25 GM in SODIUM CHLORIDE 0.9% 250ML 250 ML IV SCH ×2 (07:03→17:29)
[2020-05-23] MEDS: MEROPENEM 1GM 100 ML IV SCH ×3 (07:03→22:16)
[2020-05-23] MEDS: ENOXAPARIN SOD INJ 40 MG/0.4 ML SYR SC SCH ×2 (07:49→20:49)
[2020-05-23 10:06] LABS: ABG HCO3 35 mmol/L (22-26); ABG PCO2 66 mmHg (35-45); ABG PH 7.34 (7.35-7.45); ABG PO2 146 mmHg (80-105); ABG TCO2 37
[2020-05-23] MEDS: FUROSEMIDE INJ 100 MG in SODIUM CHLORIDE 0.9% 100 ML 90 ML IV SCH (10:28)
--- NOTE | 2020-05-23 11:20 | Diagnostic Imaging Report ---
X-ray chest frontal view History: Respiratory failure Comparison: 05/22/2020 Findings: Lines and tubes: Endotracheal tube is seen 3.3 cm above the thoracic inlet. It should be advanced approximately 2-3 cm. A nasogastric tube is seen coursing down the expected path of the tip is excluded. A left arm PICC line is seen with the tip overlying the SVC. Central airways: Unremarkable Cardiac silhouette: Unremarkable Mediastinal silhouettes: Unremarkable Pleura: No pleural effusion, pneumothorax or thickening Diaphragms: Unremarkable Lungs: Mid and lower lung zone dominant diffuse bilateral interstitial and airspace disease, no change. Skeletal structures: Unremarkable Extrathoracic soft tissues: Unremarkable Impression: As above. Signed by: Emmanuel Bhagat MD on 05/23/2020 11:17 AM
--- NOTE | 2020-05-23 13:47 | NUR ---
WOUND CARE CONSULT FOR 65 YO MALE HX OF PNEAU, HYPOXIA HERMAN 10 ON STRICT PUP STATUS AND INTERVENTIONS AND ALTERNATING PRESSURE MATTRESS LABS: WBC-13.41 HGB_8.5 GLUCOSE-122 SKIN ASSESSMENT COMPLETE PATIENT PRESENTS WITH BILATERAL DARK PURPLE CHEEK DTI MEASURING 1CM X1CM LEFT EAR DTI DARK PURPLE MEASURES 3CM X 4CM RECOMMENDATIONS: NURSING TO CONTINUE TO MAINTAIN STRICT PUP STATUS AND INTERVENTIONS AND ALTERNATING PRESSURE MATTRESS NURSING TO CONTINUE TO ASSIST PATIENT NEEDED WITH MEALS AND NUTRITIONAL SUPPLEMENTS TO ENSURE PROPER REQUIREMENTS FOR HEALING NURSING TO CONTINUE TO OFFLOAD FEET AND HEELS NEEDED WITH PILLOW SUSPENSION WHEN IN BED NURSING TO CLEAN BILATERAL CHEEK DTI AND LEFT EAR DTI WITH NORMAL SALINE DAILY AND APPLY VENELEX OINTMENT AND SMALL ALLEVYN FOAM DRESSING CUT IN HALF TO DISTRIBUTE PRESSURE AND PREVENT SHEER
--- NOTE | 2020-05-23 16:49 | Progress Note ---
DATE: Pulmonary Critical Care Progress Note SUBJECTIVE: The patient is currently in the supine position. He is on a PRVC mode of ventilation at a rate of 36 with a tidal volume of 370 and FiO2 of 80%. His PEEP is set at 12. He remains on Versed, fentanyl, and rocuronium. He is on enteral feedings. PHYSICAL EXAMINATION: VITAL SIGNS: The patient is afebrile. The blood pressure is 101/62 and saturation is 100%. He is on the above-mentioned ventilator settings. He has an endotracheal tube in place. He has an arterial line as well as a PICC line in place. CARDIAC: Reveals regular rate and rhythm with normal S1 and S2. LUNGS: Auscultation of lungs reveals rhonchorous breath sounds bilaterally. There is no wheezing. ABDOMEN: Soft and nontender. There is no rebound or guarding. EXTREMITIES: Shows no leg edema or calf tenderness. There is no cyanosis or clubbing. SKIN: Shows no rashes. NEUROLOGICAL: Shows no focal abnormalities new. LABORATORY DATA: The white blood cell count is 13.4 and the hemoglobin is 8.5. The platelet count is 187. The BUN to creatinine ratio is 27 to 0.67 and other electrolytes are within normal limits. Albumin is 2.1. RADIOGRAPHIC DATA: Chest x-ray shows bilateral interstitial infiltrates. IMPRESSION: 1. Acute respiratory failure. 2. Viral pneumonia and COVID-19 infection. 3. Anemia secondary to chronic blood loss. 4. Diabetes. 5. Hypertension. PLAN: 1. Continue current ventilator settings and repeat ABG. 2. Continue Lasix drip. 3. Complete current antibiotics. 4. Enteral feedings. 5. Continue to monitor and control blood sugars. Greater than 35 minutes in direct critical care time. Manuel Quigley MD [facility]/MODL /[id number]
[2020-05-23] MEDS: FLUCONAZOLE 400MG/200ML BAG 200 ML IV SCH (17:29)
--- NOTE | 2020-05-23 19:19 | Progress Note ---
DATE: SUBJECTIVE: Mr. Bob is day #20 of hospitalization, remains extremely ill. On the ventilator. PHYSICAL EXAMINATION: GENERAL: He is intubated, sedated. VITAL SIGNS: Stable, afebrile. HEENT: He is not icteric. NECK: Supple. CHEST: Crackles bilaterally. HEART: S1, S2. ABDOMEN: Soft. IMPRESSION: Respiratory failure, coronavirus disease-19, fever. Blood culture and his urine culture showed Martina albicans. Currently, his white count 13.4, hemoglobin 8.5. Sodium 143, potassium 3.7 with a creatinine 0.67. He is currently on meropenem and vancomycin and fluconazole. We are going to stop the meropenem and vancomycin since he has been on for more than 7 days. Continue supportive care. Prognosis remains very poor. We will follow. MD JOSE Garay/MODL /[id number]
[2020-05-23] MEDS: ACETAZOLAMIDE SODIUM 500 MG/VIAL IV SCH (20:49)
[2020-05-23] MEDS: LATANOPROST(OPTH) 2.5 ML BTL OP SCH (20:49)
[2020-05-23] MEDS ORDERED: SODIUM CHLORIDE 0.9% 1000ML 1,000 ML ONE (21:10)
[2020-05-23 21:33] LABS: ABG PCO2 68 mmHg (35-45); ABG PH 7.32 (7.35-7.45); ABG PO2 77 mmHg (80-105)
[2020-05-23 21:34] LABS: ABG HCO3 35 mmol/L (22-26); ABG TCO2 37
--- NOTE | 2020-05-23 21:40 | Progress Note ---
DATE: 05/23/2020 SUBJECTIVE: Intubated, sedated. Cannot give any history. OBJECTIVE: VITAL SIGNS: Temperature 97.9, pulse 91, respiratory rate 36, and blood pressure 111/65. GENERAL: Intubated, sedated. SKIN: No rash. HEENT: Endotracheal tube in place. LUNGS: Decreased breath sounds. HEART: Regular rate and rhythm. Normal S1 and S2. GI: Abdomen is soft and nondistended. NEUROLOGIC: Sedated. PSYCHIATRIC: Sedated. LABORATORY DATA: Laboratory [place], white count 13.4, hemoglobin 8.5, and platelet count 187. Creatinine 0.67. ASSESSMENT AND PLAN: 1. Acute respiratory failure due to COVID-19 pneumonia. We will continue IV antibiotics per Infectious Disease specialist. His white count is a little bit better today. We will continue vent management per the brick veneer maker and also continue IV Lasix. 2. Chronic anemia. Hemoglobin is slightly lower today. We will continue to monitor. 3. Gastrointestinal and deep venous thrombosis prophylaxis. Continue Lovenox 40 mg twice a day. MD ASHWIN Chavez/MIKE /[id number]
[2020-05-24] VITALS (21 sets, daily range): BP systolic 96–134; BP diastolic 52–73
--- NOTE | 2020-05-24 00:24 | Diagnostic Imaging Report ---
EXAMINATION: CHEST SINGLE (PORTABLE) INDICATION: ^Confirm ETT placement. Acute De-Saturation ^[id number] ^[id number] COMPARISON: Radiograph from today FINDINGS: TUBES and LINES: Endotracheal tube is 4.8 cm above the cadence. The enteric tube courses below the diaphragm. LUNGS: Bilateral hazy and patchy airspace opacities in the mid lower lungs are not significant changed. PLEURA: Blunting of the costophrenic angles may represent small effusions. No pneumothorax. HEART AND MEDIASTINUM: Stable cardiomediastinal silhouette. BONES AND SOFT TISSUES: No acute osseous lesion. Soft tissues are unremarkable. UPPER ABDOMEN: No free air under the diaphragm. IMPRESSION: 1. Endotracheal tube is 4.8 cm above the cadence. 2. Unchanged diffuse diffuse bilateral airspace disease which could represent multifocal pneumonia/viral pneumonitis or pulmonary edema including noncardiogenic edema. Possible small effusions. Signed by: Krish Gerardo MD on 05/24/2020 12:21 AM
[2020-05-24] MEDS: MIDAZOLAM HCL 5MG/ML 10ML VIAL 100 ML IV PRN ×3 (01:20→21:07)
[2020-05-24] MEDS: ROCURONIUM BROMIDE 250 MG in SODIUM CHLORIDE 0.9% 250ML 225 ML IV SCH (02:29)
[2020-05-24] MEDS: FUROSEMIDE INJ 100 MG in SODIUM CHLORIDE 0.9% 100 ML 90 ML IV SCH ×2 (04:00→09:56)
[2020-05-24] MEDS: FENTANYL 2000MCG/NS 250 250 ML IV PRN ×3 (05:48→22:11)
[2020-05-24] MEDS: MEROPENEM 1GM 100 ML IV SCH ×2 (05:49→13:03)
[2020-05-24] MEDS ORDERED: POTASSIUM CHLORIDE 20MEQ/100ML 100 ML IV ONE (06:00)
[2020-05-24] MEDS: VANCOMYCIN HCL 1.25 GM in SODIUM CHLORIDE 0.9% 250ML 250 ML IV SCH ×2 (06:27→17:08)
[2020-05-24 06:41] LABS: ALANINE AMINOTRANSFERASE 33 IU/L (0-55); ALBUMIN 1.6 g/dL (3.5-5.0); ALBUMIN/GLOBULIN RATIO 0.5 (0.8-2.0); ALKALINE PHOSPHATASE 71 IU/L (40-150); BLOOD UREA NITROGEN 27 mg/dL (7-26); BUN/CREATININE RATIO 44 (6-25); CARBON DIOXIDE 28 mmol/L (22-29); CHLORIDE 113 mmol/L (98-107); CREATININE, SERUM 0.61 mg/dL (0.72-1.25); EST GLOMERULAR FILTRATION RATE > 60 ML/MIN (60-); GLUCOSE 100 mg/dL (74-118); SODIUM 147 mmol/L (136-145)
[2020-05-24 06:43] LABS: CALCIUM 6.3 mg/dL (8.4-10.2)
[2020-05-24 07:07] LABS: BASOPHILS % 0.2 % (0.0-1.0); EOSINOPHILS # (AUTO) 0.7 (0.0-0.4); EOSINOPHILS % 5.3 % (0.0-6.0); HEMATOCRIT 27.3 % (38.2-49.6); HEMOGLOBIN 7.8 g/dL (14.0-18.0); LYMPHOCYTES # (AUTO) 1.1 (1.0-3.2); LYMPHOCYTES % 8.3 % (18.0-39.1); MEAN CORPUSCULAR HEMOGLOBIN 29.4 pg (28-32); MEAN CORPUSCULAR HGB CONC 28.6 g/dL (31-35); MONOCYTES # (AUTO) 0.6 (0.2-0.8); MONOCYTES % 4.8 % (4.4-11.3); NEUTROPHILS # (AUTO) 9.7 (2.1-6.9); NEUTROPHILS % 77.1 % (38.7-80.0); PLATELET COUNT 193 x10e3/uL (140-360); RED BLOOD COUNT 2.65 x10e6/uL (4.3-5.7); RED CELL DISTRIBUTION WIDTH 14.6 % (11.7-14.4)
[2020-05-24] MEDS ORDERED: CALCIUM GLUCONATE 10% INJ 4.65 MEQ in SODIUM CHLORIDE 0.9% 50ML 50 ML IV ONE (07:45)
[2020-05-24] MEDS: ENOXAPARIN SOD INJ 40 MG/0.4 ML SYR SC SCH ×2 (08:11→20:07)
[2020-05-24] MEDS: ACETAZOLAMIDE SODIUM 500 MG/VIAL IV SCH (08:11)
[2020-05-24] MEDS: BALSAM PERU/CASTOR OIL 60 GM OINT...G. TP SCH (08:11)
--- NOTE | 2020-05-24 08:56 | Diagnostic Imaging Report ---
EXAMINATION: CHEST SINGLE (PORTABLE) INDICATION: Viral pneumonia COMPARISON: Multiple prior chest radiograph, most recently of 05/23/2020 FINDINGS: LINES/TUBES:6 endotracheal tube terminates 3 cm above the cadence. Enteric tube projects below the diaphragm with tip not seen. Left PICC line terminates in the SVC. EKG leads overlie the chest. LUNGS:'S the lungs are moderately inflated. Unchanged bibasilar airspace opacities PLEURA:Possible small left pleural effusion. No pneumothorax. MEDIASTINUM:The cardiomediastinal silhouette appears unchanged in size and shape. BONES/SOFT TISSUES:No acute osseous injury. ABDOMEN:No free air under the diaphragm. IMPRESSION: No significant interval change. Signed by: Nicki Durham MD on 05/24/2020 8:53 AM
[2020-05-24 09:37] LABS: ABG HCO3 34 mmol/L (22-26); ABG PCO2 78 mmHg (35-45); ABG PH 7.26 (7.35-7.45); ABG PO2 81 mmHg (80-105); ABG TCO2 36
--- NOTE | 2020-05-24 10:38 | Progress Note ---
DATE: Pulmonary Critical Care progress Note SUBJECTIVE: The patient remains on rocuronium along with fentanyl and Versed. He continues on very low dose Levophed. He is receiving enteral feedings. He is also on a Lasix drip. PHYSICAL EXAMINATION: VITAL SIGNS: The blood pressure is 119/70. The saturation is 92% and the pulse is 110-120. The T-max is 100.2. He is currently on a PRVC at a rate of 36 with tidal volume of 370 and FiO2 of 100%. His PEEP is set at 12. His respiratory rate is set at 36. HEENT: No facial swelling or erythema. The patient has an oral endotracheal tube. There is a PICC line as well as radial arterial line. CARDIAC: Regular rate and rhythm with normal S1, S2. LUNGS: Auscultation of lungs shows decreased breath sounds at the bases. ABDOMEN: Soft, nontender. There is no rebound or guarding. EXTREMITIES: No leg edema or calf tenderness. There is no cyanosis or clubbing. SKIN: No rashes. LABORATORY DATA: Potassium is 3 and the sodium is 147. The albumin is 1.6. The white blood cell count is 12.6 and hemoglobin is 7.8. The platelet count is 193. RADIOGRAPHIC DATA: Chest x-ray shows bilateral infiltrates. IMPRESSION: 1. Acute respiratory failure. 2. Viral pneumonia and coronavirus disease-19 infection. 3. Diabetes. 4. Hypertension. 5. Anemia secondary to chronic blood loss. PLAN: 1. Place the patient in prone position today. 2. Continue Lasix drip. Add additional albumin. 3. Continue enteral feedings. 4. Wean off Levophed. 5. Continue Lovenox. 6. Replace potassium. 7. Continue to monitor blood counts. Greater than 35 minutes in direct critical care time. Manuel Quigley MD [facility]/MIKE /[id number]
--- NOTE | 2020-05-24 11:02 | Progress Note ---
DATE: 05/24/2020 Cardiology Progress Note SUBJECTIVE: Mr. Bob remains intubated and sedated. OBJECTIVE: VITAL SIGNS: Temperature 100.2, heart rate 109, sinus tachycardia on telemetry, blood pressure 96/52, respiratory rate 36, and O2 saturation 90%. GENERAL: Intubated and sedated. HEENT: ET tube in place. NECK: Supple. CHEST: With rales and decreased breath sounds. CARDIOVASCULAR: Regular rate and rhythm. Normal S1 and S2. Tachycardic. ABDOMEN: Soft. Bowel sounds positive. EXTREMITIES: With worsening edema, euthermic across 4 extremities. CARDIOVASCULAR MEDICATIONS: Reviewed. Furosemide 5 mg/hour IV drip, Lovenox 40 mg q.12 hours, and hydralazine 10 q.4 hours as needed. STUDIES: Reviewed. Creatinine 0.6 and potassium 3. White blood cells 12, hemoglobin 7.8, and platelets 193. INR 1.4. ASSESSMENT AND PLAN: A 65-year-old man with COVID-19 infection, community-acquired pneumonia, acute respiratory failure, [id number] diastolic heart failure, and anemia. RECOMMEND: 1. Up titrate furosemide to 7.5 mg daily and consider limiting/restricting additional fluid in's, as the patient seems to be getting increasingly more overloaded at this point. Monitor H and H and transfuse as needed for hemoglobin drops less than 7. 2. Continue rest of cardiovascular medications. Replete electrolytes as needed. MD CHRISTINE Bal/MIKE /[id number]
[2020-05-24] MEDS ORDERED: ALBUMIN 25% 25GM 100ML 0.25 GM/ML BTL IV SCH (12:00)
[2020-05-24] MEDS: ALBUMIN 25% 25GM 100ML 100 ML IV SCH ×3 (12:35→23:12)
[2020-05-24] MEDS ORDERED: METHYLPREDNISOLONE SOD SUCC 125 MG/2ML VIAL IV SCH (15:30)
--- NOTE | 2020-05-24 17:18 | Progress Note ---
DATE: SUBJECTIVE: This is day #1. Mr. Bob remains intubated. He is on meropenem, Lovenox, vancomycin, and fluconazole. His white count 12.6 and his hemoglobin 7.8. Sodium 147, creatinine 0.6. OBJECTIVE: HEENT: Normocephalic. CHEST: Crackles bilateral. COR: S1 and S2. ABDOMEN: Soft. IMPRESSION: Respiratory failure, coronavirus disease-19, superimposed bacterial infection, and diabetes mellitus. Continue with supportive care as ordered. Continue with Lasix drip. We will give one dose of steroid to see if that does anything and improve his vitals. We will try that for a day. We will follow. MD JOSE Garay/MODL /[id number]
--- NOTE | 2020-05-24 17:55 | NUR ---
Nutrition Intervention Note RD Recommendation(s) for Physician: -Recommend modifying tube feeding to Vital AF 1.2 @ goal rate of 55 mL/hr (provides 1584 kcal, 99 g protein). Water/fluid management per MD Plan of Care: RD following, monitoring for tolerance and adequacy, tube feed recommendation Nutrition reason for involvement: follow up RD Assessment 05/24: Follow up. Pt remains intubated and sedated, requiring to be proned- no paralytic currently. Vital HP infusing at goal rate, providing >75% of estimated needs. Chart reviewed. Current TF rec's remain appropriate. Will continue to monitor. 05/22: Follow up. Pt remains intubated, paralyzed, and sedated. TF documented as Glucerna 1.2 at 30 ml/hr currently, not meeting needs. Pt requiring proning at times. Pt with chest tubes to output. Current TF rec's remain appropriate. Chart reviewed. Will continue to monitor. 05/17: Follow up. Chart reviewed. Pt remains intubated. RN reports that pts tube feeding is at 10 mL/hr at this time and pt is in the prone position. Current recommendations remain appropriate. Will continue to monitor. 05/12: Pt was intubated yesterday and tube feeding was ordered. It is recorded that pt consumed 25% of breakfast on 05/10 and was previously consuming 50-100% of meals. Recommendations provided. Will continue to monitor. 05/09: 65 YOM admitted for hypoxia and pneumonia due to COVID-19. Pt assessed today for LOS. Attempted to call pt's room x 2, no answer- unable to obtain hx at this time. No wt loss or poor intake indicated at admit per MD notes. Pt with 50-100% intake since admit. Pt currently on Vapotherm per current respiratory status. Labs and meds reviewed. LBM 05/08, skin intact. Chart reviewed. Will continue to monitor. Principal Problems/Diagnoses: hypoxia, pneumonia due to COVID-19 PMH: HTN, HLD GI: flat, soft abdomen, last recorded BM 05/22 Skin: no pressure ulcers noted Labs: 05/24: Na 147, K 3, BUN 27, Cr 0.61, Gluc 100, POC Gluc 123-126, Ca 6.3, Mg 1.5 05/22: Na 143, K 4.5, BUN 28, Cr 0.77, Gluc 122, POC Gluc 122-136 (05/17/20) Na 141, K 4.2, BUN 18, Cr 0.61, Glu 87, Ca 8.7 (05/12/20) Na 141, K 5.4, BUN 33, Cr 0.76, Glu 118, Ca 7.9 Meds: abx, IV albumin, solumedrol IVF/Drips: Fentanyl drip, Versed drip Ht: 66 inches Wt: 218 lbs BMI: 35.2 IBW: 142 lbs Malnutrition Evaluation (05/09/20) The patient does not meet criteria for a specified degree of malnutrition at this time. Will re-evaluate at follow-up as appropriate. Unable to assess due to current isolation precautions. Nutrition Prescription (Diet Order): Vital HP at 55 ml/hr (1200 kcal and 105 gm protein) Estimated Nutritional Needs: 9835-4494 calories/day (22-25 kcal/kg IBW) 97-129 g protein/day (1.5-2 g pro/kg IBW) Diet Adequacy: Not meeting calorie needs, Not meeting protein needs Tolerance: tolerating TF Diet Education Needs Assessment: Diet education is not indicated, pt is intubated Nutrition Care Level: moderate Nutrition Diagnosis: Inadequate oral intake related to acute respiratory failure/mechanical ventilation as evidenced by requiring enteral nutrition. Goal: Patient will meet 75-100% of estimated needs by follow up Progress: goal met Interventions: - Composition, Rate, Route, Recommended Modifications Monitoring/Evaluation: -Total energy intake, Total protein intake, Formula/Solution, Weight change Signed: Carrie Corrigan RD, LD, [facility]
[2020-05-24] MEDS: FLUCONAZOLE 400MG/200ML BAG 200 ML IV SCH (18:39)
[2020-05-24] MEDS: HEPARIN SOD/SOD CHLORIDE 1,000 ML IV SCH (20:07)
[2020-05-24] MEDS: LATANOPROST(OPTH) 2.5 ML BTL OP SCH (20:07)
[2020-05-24 22:33] LABS: ABG PCO2 69 mmHg (35-45); ABG PH 7.31 (7.35-7.45); ABG PO2 82 mmHg (80-105)
[2020-05-24 22:34] LABS: ABG HCO3 35 mmol/L (22-26)
--- NOTE | 2020-05-24 22:50 | Progress Note ---
DATE: 05/24/2020 SUBJECTIVE: Intubated, sedated, cannot give any history. OBJECTIVE: VITAL SIGNS: Temperature 100.3, pulse 95, respiratory rate 36, blood pressure 124/63. GENERAL: Intubated, sedated. SKIN: No rash. HEENT: Endotracheal tube in place. LUNGS: Decreased breath sounds. HEART: Regular rate and rhythm. Normal S1, S2. GI: Abdomen is soft, nondistended. NEUROLOGIC: Sedated. PSYCHIATRIC: Sedated. LABORATORY DATA: White count 12, hemoglobin 7.8, platelet count 193, creatinine 0.6. ASSESSMENT AND PLAN: 1. Acute respiratory failure due to coronavirus disease-19 pneumonia. We will continue IV antibiotic per Infectious Disease specialist. We will continue vent management per lease analyst. We will continue to monitor his low-grade fever. 2. Chronic anemia. Again, his hemoglobin is low today. We will continue to monitor. 3. Gastrointestinal and deep vein thrombosis prophylaxis. Continue Lovenox. MD ASHWIN Chavez/MIKE /[id number]
[2020-05-25] VITALS (24 sets, daily range): BP systolic 114–155; BP diastolic 59–72
[2020-05-25 05:06] LABS: BASOPHILS % 0.2 % (0.0-1.0); EOSINOPHILS % 0.1 % (0.0-6.0); HEMATOCRIT 25.8 % (38.2-49.6); HEMOGLOBIN 7.8 g/dL (14.0-18.0); LYMPHOCYTES # (AUTO) 0.8 (1.0-3.2); LYMPHOCYTES % 8.4 % (18.0-39.1); MEAN CORPUSCULAR HEMOGLOBIN 30.4 pg (28-32); MEAN CORPUSCULAR HGB CONC 30.2 g/dL (31-35); MEAN CORPUSCULAR VOLUME 100.4 fL (81-99); MONOCYTES # (AUTO) 0.1 (0.2-0.8); MONOCYTES % 1.2 % (4.4-11.3); NEUTROPHILS % 84.1 % (38.7-80.0); PLATELET COUNT 194 x10e3/uL (140-360); RED BLOOD COUNT 2.57 x10e6/uL (4.3-5.7); RED CELL DISTRIBUTION WIDTH 14.6 % (11.7-14.4)
[2020-05-25 05:29] LABS: ALANINE AMINOTRANSFERASE 32 IU/L (0-55); ALBUMIN 2.6 g/dL (3.5-5.0); ALBUMIN/GLOBULIN RATIO 0.8 (0.8-2.0); ALKALINE PHOSPHATASE 69 IU/L (40-150); ANION GAP 13.2 mmol/L (8-16); BLOOD UREA NITROGEN 34 mg/dL (7-26); BUN/CREATININE RATIO 48 (6-25); CALCIUM 7.5 mg/dL (8.4-10.2); CARBON DIOXIDE 31 mmol/L (22-29); CHLORIDE 107 mmol/L (98-107); CREATININE, SERUM 0.71 mg/dL (0.72-1.25); EST GLOMERULAR FILTRATION RATE > 60 ML/MIN (60-); GLUCOSE 184 mg/dL (74-118); POTASSIUM 3.2 mmol/L (3.5-5.1); SODIUM 148 mmol/L (136-145)
[2020-05-25] MEDS: VANCOMYCIN HCL 1.25 GM in SODIUM CHLORIDE 0.9% 250ML 250 ML IV SCH (06:43)
[2020-05-25] MEDS: MIDAZOLAM HCL 5MG/ML 10ML VIAL 100 ML IV PRN ×2 (06:57→15:50)
[2020-05-25] MEDS: FENTANYL 2000MCG/NS 250 250 ML IV PRN ×3 (06:57→23:33)
[2020-05-25] MEDS: HEPARIN SOD/SOD CHLORIDE 1,000 ML IV SCH (07:29)
[2020-05-25 07:49] LABS: ABG HCO3 34 mmol/L (22-26); ABG PCO2 67 mmHg (35-45); ABG PH 7.31 (7.35-7.45); ABG PO2 84 mmHg (80-105); ABG TCO2 36
--- NOTE | 2020-05-25 08:34 | Diagnostic Imaging Report ---
EXAM: CHEST SINGLE (PORTABLE) DATE: 05/25/2020 6:00 AM INDICATION: Intubated, viral pneumonia COMPARISON: 05/24/2020 FINDINGS: Endotracheal tube identified and left-sided PICC line identified in stable position. Enteric tube noted coursing below the diaphragm. Again identified are patchy airspace opacities bilaterally, more prominent within the lower lung zones. Findings are not significantly changed from the recent prior examination. There is no evidence for pneumothorax or significant volume pleural effusion. The cardiomediastinal silhouette is stable in appearance. No acute osseous abnormality is identified. IMPRESSION: No significant interval change from 05/24/2020. Signed by: Dr. Josemanuel Marin MD on 05/25/2020 8:30 AM
[2020-05-25] MEDS: BALSAM PERU/CASTOR OIL 60 GM OINT...G. TP SCH (08:58)
[2020-05-25] MEDS: ENOXAPARIN SOD INJ 40 MG/0.4 ML SYR SC SCH ×2 (08:58→20:24)
[2020-05-25] MEDS: ROCURONIUM BROMIDE 250 MG in SODIUM CHLORIDE 0.9% 250ML 225 ML IV SCH ×2 (08:58→18:40)
[2020-05-25 10:39] LABS: BAND NEUTROPHILS % (MANUAL) 5 %; HYPOCHROMASIA SLIGHT; LYMPHOCYTES % (MANUAL) 6 % (19-48); MONOCYTES % (MANUAL) 1 % (3.4-9.0); NEUTROPHILS % (MANUAL) 88 % (40-74)
--- NOTE | 2020-05-25 11:52 | Progress Note ---
DATE: SUBJECTIVE: The patient remains on PRVC mode of ventilation at a rate of 36 with a tidal volume of 370 and FiO2 of 100%. His PEEP is set at 13. He remains on a Lasix drip at 7.5. He still is using rocuronium, Versed, and fentanyl. PHYSICAL EXAMINATION: VITAL SIGNS: The patient is afebrile. The blood pressure is 125/60, saturation is 98%. HEENT: Shows no facial swelling or erythema. There is an oral endotracheal tube. CARDIAC: Reveals regular rate and rhythm with normal S1, S2. LUNGS: Auscultation of lungs reveals crackles at the bases. There is no wheezing. ABDOMEN: Soft, nontender. There is no rebound or guarding. EXTREMITIES: Shows no leg edema or calf tenderness. There is no cyanosis or clubbing. SKIN: Shows no rashes. NEUROLOGICAL: Shows the patient to be sedated. LABORATORY DATA: White blood cell count is 9.5, hemoglobin is 7.8. The platelet count is 194. The BUN to creatinine ratio is normal. The potassium is 3.2 and the sodium is 148. Albumin is 2.6. Blood gases 7.31, 67, 84, and 34. RADIOGRAPHIC DATA: Chest x-ray shows bilateral infiltrates. IMPRESSION: 1. Acute respiratory failure. 2. Viral pneumonia and COVID-19 infection. 3. Diabetes. 4. Hypertension. 5. Anemia secondary to chronic blood loss. PLAN: 1. Continue current mode of ventilation. 2. Place the patient back in the prone position later this evening. 3. Continue enteral feedings. 4. Continue Versed, fentanyl, and rocuronium. 5. Nephrology consultation to assist with fluid management. 6. Continue Lovenox. 7. Greater than 35 minutes in direct critical care time. Manuel Quigley MD [facility]/SHIRLEY[facility] /[id number]
[2020-05-25] MEDS: FUROSEMIDE INJ 100 MG in SODIUM CHLORIDE 0.9% 100 ML 90 ML IV SCH (12:39)
[2020-05-25] MEDS: LACTULOSE SYRUP 20 GM/30 ML UDC PO PRN (14:22)
[2020-05-25] MEDS ORDERED: POTASSIUM CHLORIDE 20MEQ/100ML 100 ML IV ONE (14:30)
--- NOTE | 2020-05-25 14:52 | NUR ---
he patient remains on PRVC mode of ventilation at a rate of 36 with a tidal volume of 370 and FiO2 of 100%. His PEEP is set at 13. He remains on a Lasix drip at 7.5. He still is using rocuronium, Versed, and fentanyl. PHYSICAL EXAMINATION: VITAL SIGNS: The patient is afebrile. The blood pressure is 125/60, saturation is 98%. HEENT: Shows no facial swelling or erythema. There is an oral endotracheal tube. CARDIAC: Reveals regular rate and rhythm with normal S1, S2. LUNGS: Auscultation of lungs reveals crackles at the bases. There is no wheezing. ABDOMEN: Soft, nontender. There is no rebound or guarding. EXTREMITIES: Shows no leg edema or calf tenderness. There is no cyanosis or clubbing. SKIN: Shows no rashes. NEUROLOGICAL: Shows the patient to be sedated. LABORATORY DATA: White blood cell count is 9.5, hemoglobin is 7.8. The platelet count is 194. The BUN to creatinine ratio is normal. The potassium is 3.2 and the sodium is 148. Albumin is 2.6. Blood gases 7.31, 67, 84, and 34. RADIOGRAPHIC DATA: Chest x-ray shows bilateral infiltrates.
--- NOTE | 2020-05-25 16:09 | Consultation ---
DATE OF CONSULTATION: 05/25/2020 INITIAL NEPHROLOGY CONSULTATION REPORT.: REASON FOR CONSULTATION: Fluid management, edema, anasarca, and fluid overload. HISTORY OF PRESENT ILLNESS: Mr. Angus Bob is a 65-year-old male, who has been here at [facility] for about roughly a month or so. He was admitted. He was not feeling well. He was having some cough and fever. He was eventually diagnosed with COVID infection and pneumonia. The patient is on a ventilator. He is on about 100% oxygen and about 13 of PEEP. Creatinine is normal at 0.73, however, he has anasarca. He was started on a Lasix drip initially at 5 mg, not had been 7.5, today was increased to 10 mg an hour. His urine output, he has actually been in a positive fluid balance even despite the Lasix drip. PAST MEDICAL HISTORY: 1. Hypertension. 2. History of diastolic congestive heart failure. PAST SURGICAL HISTORY: Unknown. MEDICATIONS: The patient is on a Lasix drip at 10 mg an hour. He is on hydralazine, lactulose, Lovenox, albuterol, and versed. REVIEW OF SYSTEMS: As per HPI. PHYSICAL EXAMINATION: VITAL SIGNS: Blood pressure is 131/59, pulse is 70, respiration 36. GENERAL: The patient is intubated. He is on a ventilator. HEENT: No increased JVD. CARDIOVASCULAR: Regular rhythm. LUNGS: Decreased breath sounds bilaterally. ABDOMEN: Kind of protuberant. EXTREMITIES: The patient has kind of edema all over. LABORATORY RESULTS: Sodium 148, potassium 3.2, chloride 107, bicarb 31, BUN and creatinine 34 and 0.7 respectively. Urinalysis, when the patient was admitted there was no protein, this was from 05/04/2020. On 05/16/2020, urinalysis was done and showed 1+ protein, and then on 05/19/2020 it was done and showed 2+ protein. Also on the most recent UA there were some red cells and white cells and some bacteria and actually his urine culture grew out Martina albicans. IMPRESSION: 1. Total body water expansion. 2. Fluid overload. 3. Martina albicans urinary tract infection. 4. Mild hypokalemia. 5. Mild hypernatremia. PLAN: At the present time, I will go ahead and collect a 24-hour urine collection for protein creatinine, creatinine clearance to see if he has any significant proteinuria or nephrosis that might explain some of the anasarca decrease. He is on a Lasix drip, we will go ahead and continue that. The patient is getting fluconazole for the urinary tract infection with Martina. I will go ahead and add hydrochlorothiazide. Also the hydrochlorothiazide is also a vague diuretic and it may actually help the hypernatremia since one of the side effects of hydrochlorothiazide is hyponatremia. I will follow the patient while replace his potassium. Thank you, Dr. Rodriguez for this consultation. Ather MD [facility]/MIKE /[id number]
--- NOTE | 2020-05-25 16:59 | Progress Note ---
DATE: SUBJECTIVE: The patient who remains in intensive care unit, intubated. He is on ventilator, on Lasix drip. OBJECTIVE: HEENT: Normocephalic. CHEST: Few crackles. HEART: S1, S2. ABDOMEN: Soft. Bowel sounds present. EXTREMITIES: No edema. SKIN: No rash. IMPRESSION AND PLAN: Respiratory failure. Coronavirus disease-19 pneumonia. Fluid overload. Currently on Lovenox, vancomycin, and fluconazole. We will stop both for the time being. Recheck BMP. Recheck Chem panel. His white count is down to normal at 9.5, hemoglobin 7.8. Continue supportive care. We will follow. MD JOSE Garay/MODL /[id number]
[2020-05-25] MEDS: FLUCONAZOLE 400MG/200ML BAG 200 ML IV SCH (18:20)
[2020-05-25] MEDS: LATANOPROST(OPTH) 2.5 ML BTL OP SCH (20:23)
--- NOTE | 2020-05-25 21:11 | Progress Note ---
DATE: 05/25/2020 Cardiology Progress Note. SUBJECTIVE: Remains intubated and sedated. OBJECTIVE: VITAL SIGNS: Temperature 98 degrees, heart rate 69, blood pressure 122/60, respiratory rate 36, O2 saturation 91%. GENERAL: Intubated and sedated. NECK: Supple. CHEST: Rales and decreased breath sounds. CARDIOVASCULAR: Regular rate and rhythm. Normal S1, S2. ABDOMEN: Soft. EXTREMITIES: 2+ edema. Normothermic. CARDIOVASCULAR MEDICATIONS: Reviewed. Lovenox 40 mg every 12 hours, furosemide 7.5 mg daily, hydralazine 10 mg q.4 hours. LABORATORY STUDIES: Reviewed. Creatinine 0.7, potassium 3.2, glucose 184. White blood cells 9, hemoglobin 7.8, platelets 194,000. ASSESSMENT AND PLAN: Remains volume overloaded, acute on chronic diastolic heart failure, COVID-19 infection, community-acquired pneumonia, acute respiratory failure, hypertension, and anemia. RECOMMENDATIONS: Up titrate diuretics to 10 mg q.hour Lasix drip. Nephrology has been consulted, appreciate further input. Continue current cardiovascular medications otherwise. Mario Harris MD [facility]/MODL /[id number]
--- NOTE | 2020-05-25 22:52 | Progress Note ---
DATE: 05/25/2020 CONSULTANTS: 1. Dr. Manuel Quigley with senior sql database developer. 2. Dr. Robertson with Infectious Disease. 3. Dr. Neumann with Cardiology. 4. Dr. Singh with Nephrology. SUBJECTIVE: The patient is intubated and sedated. OBJECTIVE: VITAL SIGNS: Temperature 97.6, pulse is 77, respirations 36, blood pressure 141/70, and pulse ox 90% on the vent. GENERAL: Sedated and intubated. HEENT: Normocephalic. Endotracheal tube in place. CARDIOVASCULAR: Regular rate and rhythm. LUNGS: Decreased breath sounds. ABDOMEN: Soft and obese. NEURO: Sedated. MUSCULOSKELETAL: Edema. SKIN: Dry. LABORATORY DATA: WBC 9.53, hemoglobin 7.8, and platelet 194. Sodium 148, potassium 3.2, and creatinine 0.71. AST 32 and ALT 32. Magnesium 1.5. Chest x-ray, no significant interval change from yesterday. ASSESSMENT AND PLAN: 1. Acute respiratory failure due to coronavirus-19 pneumonia. Remains intubated and sedated. Continue on fluconazole and completed vancomycin and Merrem per ID. Chest x-ray with no interval change. Vent management per Pulmonology. Low-grade fever overnight. 2. Chronic anemia. Hemoglobin is 7.8. Stable. We will continue to monitor. 3. Generalized edema. Continue Lasix drip per Nephrology. 4. Urinary tract infection with Martina albicans. Continue fluconazole per ID. 5. Deep vein thrombosis prophylaxis. Continue Lovenox. Dictated by MARAH Castro Alicja Rodriguez MD [facility]/MODL /[id number]
[2020-05-26] VITALS (24 sets, daily range): BP systolic 135–197; BP diastolic 55–89
[2020-05-26] MEDS: FUROSEMIDE INJ 100 MG in SODIUM CHLORIDE 0.9% 100 ML 90 ML IV SCH ×2 (02:45→07:50)
[2020-05-26] MEDS: ROCURONIUM BROMIDE 250 MG in SODIUM CHLORIDE 0.9% 250ML 225 ML IV SCH ×2 (03:00→17:09)
[2020-05-26 05:03] LABS: BASOPHILS % 0.3 % (0.0-1.0); EOSINOPHILS % 0.1 % (0.0-6.0); HEMATOCRIT 28.8 % (38.2-49.6); HEMOGLOBIN 8.6 g/dL (14.0-18.0); LYMPHOCYTES # (AUTO) 1.4 (1.0-3.2); LYMPHOCYTES % 10.8 % (18.0-39.1); MEAN CORPUSCULAR HGB CONC 29.9 g/dL (31-35); MONOCYTES # (AUTO) 0.6 (0.2-0.8); MONOCYTES % 4.6 % (4.4-11.3); NEUTROPHILS # (AUTO) 10.2 (2.1-6.9); NEUTROPHILS % 78.2 % (38.7-80.0); PLATELET COUNT 247 x10e3/uL (140-360); RED BLOOD COUNT 2.97 x10e6/uL (4.3-5.7); RED CELL DISTRIBUTION WIDTH 14.8 % (11.7-14.4)
[2020-05-26 05:26] LABS: ALANINE AMINOTRANSFERASE 36 IU/L (0-55); ALBUMIN 2.7 g/dL (3.5-5.0); ALBUMIN/GLOBULIN RATIO 0.8 (0.8-2.0); ALKALINE PHOSPHATASE 66 IU/L (40-150); BLOOD UREA NITROGEN 50 mg/dL (7-26); BUN/CREATININE RATIO 58 (6-25); CALCIUM 8.6 mg/dL (8.4-10.2); CARBON DIOXIDE 36 mmol/L (22-29); CHLORIDE 105 mmol/L (98-107); CREATININE, SERUM 0.86 mg/dL (0.72-1.25); EST GLOMERULAR FILTRATION RATE > 60 ML/MIN (60-); GLUCOSE 156 mg/dL (74-118); SODIUM 150 mmol/L (136-145)
[2020-05-26] MEDS: HEPARIN SOD/SOD CHLORIDE 1,000 ML IV SCH ×2 (07:50→14:43)
[2020-05-26] MEDS: MIDAZOLAM HCL 5MG/ML 10ML VIAL 100 ML IV PRN ×3 (07:58→22:46)
[2020-05-26] MEDS: FENTANYL 2000MCG/NS 250 250 ML IV PRN ×2 (07:58→17:08)
[2020-05-26] MEDS: ENOXAPARIN SOD INJ 40 MG/0.4 ML SYR SC SCH ×2 (08:23→21:07)
[2020-05-26] MEDS: HYDROCHLOROTHIAZIDE 25 MG TAB PO SCH (08:23)
[2020-05-26] MEDS: POTASSIUM CHLORIDE 20MEQ/15ML UDC NG SCH (08:23)
[2020-05-26] MEDS: BALSAM PERU/CASTOR OIL 60 GM OINT...G. TP SCH (08:23)
[2020-05-26 10:51] LABS: ABG HCO3 39 mmol/L (22-26); ABG PCO2 67 mmHg (35-45); ABG PH 7.37 (7.35-7.45); ABG PO2 78 mmHg (80-105); ABG TCO2 41
--- NOTE | 2020-05-26 11:13 | Progress Note ---
DATE: SUBJECTIVE: The patient remains in the prone position. He is currently on a PRVC mode of ventilation at a rate of 36 with a tidal volume of 350 and a PEEP of 12. His FiO2 is set at 100%. He has nasogastric tube in place. He is receiving enteral feedings. PHYSICAL EXAMINATION: VITAL SIGNS: The blood pressure is 157/61, saturation is 93%. The respiratory rate is 36, and the pulse is 76. HEENT: Shows no facial swelling or erythema. There is an oral endotracheal tube. The patient also has a nasogastric tube. CARDIAC: Reveals regular rate and rhythm with normal S1 and S2. LUNGS: Auscultation of lungs reveals rhonchorous breath sounds bilaterally. There is no wheezing. ABDOMEN: Soft, nontender. There is no rebound or guarding. EXTREMITIES: Shows no leg edema or calf tenderness. There is no cyanosis or clubbing. SKIN: Shows no rashes. NEUROLOGIC: Shows no focal abnormalities. LABORATORY DATA: Sodium is 150 and the BUN to creatinine ratio is 50 to 0.86. Albumin is 2.7. The white blood cell count is 13, hemoglobin is 8.6. The platelet count is 247. IMPRESSION: 1. Acute respiratory failure. 2. Viral pneumonia and coronavirus disease-19 infection. 3. Diabetes. 4. Hypertension. 5. Anemia secondary to chronic blood loss. 6. Hyponatremia. PLAN: 1. Continue current mode of ventilation. 2. Continue to place patient in prone position. 3. Hold Lasix drip. 4. Increase free water. 5. Continue Versed, fentanyl and rocuronium. 6. Continue Lovenox. 7. Case discussed with nursing, Respiratory, Nephrology, Internal Medicine and family. Greater than 35 minutes in direct critical care time. Manuel Quigley MD [facility]/MOD[facility] /[id number]
--- NOTE | 2020-05-26 15:48 | NUR ---
he patient remains in the prone position. He is currently on a PRVC mode of ventilation at a rate of 36 with a tidal volume of 350 and a PEEP of 12. His FiO2 is set at 100%. He has nasogastric tube in place. He is receiving enteral feedings. PHYSICAL EXAMINATION: VITAL SIGNS: The blood pressure is 157/61, saturation is 93%. The respiratory rate is 36, and the pulse is 76. HEENT: Shows no facial swelling or erythema. There is an oral endotracheal tube. The patient also has a nasogastric tube. CARDIAC: Reveals regular rate and rhythm with normal S1 and S2. LUNGS: Auscultation of lungs reveals rhonchorous breath sounds bilaterally. There is no wheezing. ABDOMEN: Soft, nontender. There is no rebound or guarding. EXTREMITIES: Shows no leg edema or calf tenderness. There is no cyanosis or clubbing. SKIN: Shows no rashes. NEUROLOGIC: Shows no focal abnormalities. LABORATORY DATA: Sodium is 150 and the BUN to creatinine ratio is 50 to 0.86. Albumin is 2.7. The white blood cell count is 13, hemoglobin is 8.6. The platelet count is 247. [id number]
[2020-05-26] MEDS: FLUCONAZOLE 400MG/200ML BAG 200 ML IV SCH (18:00)
--- NOTE | 2020-05-26 18:15 | Diagnostic Imaging Report ---
Examination: Single AP view of the chest. COMPARISON: None. INDICATION: Possible subcutaneous emphysema. DISCUSSION: Lines/tubes: Endotracheal tube 4 cm above the cadence. Enteric tube with distal tip not visualized. Left-sided PICC line with tip overlying the brachiocephalic confluence. Lungs: Bilateral lower lung groundglass and airspace consolidations. Pleura: No pleural effusion or pneumothorax. Heart and mediastinum: The heart and the mediastinum are unremarkable. Bones and soft tissues: No acute bony abnormalities. No subcutaneous emphysema visualized. IMPRESSION: 1. Stable pulmonary findings. No subcutaneous emphysema Signed by: Dr. Anmol Kim M.D. on 05/26/2020 6:12 PM
--- NOTE | 2020-05-26 18:16 | Progress Note ---
DATE: SUBJECTIVE: Mr. Bob remains in intensive care unit, day 23. He is in prone position, on the ventilator. OBJECTIVE: HEENT: He is not icteric. NECK: Supple. CHEST: Few crackles. HEART: S1-S2. ABDOMEN: Soft. IMPRESSION: Respiratory failure, diabetes mellitus, and Coronavirus disease-19. White count 13.08. Sodium 150, creatinine 0.56. BNP 139. Off antibiotic. Continue as ordered. MD JOSE Garay/MODL /[id number]
[2020-05-26 20:08] LABS: TOTAL VOLUME, URINE 2525 ml/24hr (800-2000)
[2020-05-26 20:27] LABS: ABG HCO3 36 mmol/L (22-26); ABG PCO2 61 mmHg (35-45); ABG PH 7.38 (7.35-7.45); ABG PO2 77 mmHg (80-105); ABG TCO2 38
[2020-05-26 20:29] LABS: TOTAL PROTEIN 24HR, URINE 171.69974 mg/24hr (50-100); TOTAL PROTEIN, URINE < 6.8 mg/dL (1-14)
[2020-05-26] MEDS: LATANOPROST(OPTH) 2.5 ML BTL OP SCH (21:07)
--- NOTE | 2020-05-26 21:11 | Progress Note ---
DATE: 05/26/2020 CONSULTANTS: 1. Dr. Manuel Quigley, horticulture professor. 2. Dr. Robertson with Infectious Disease. 3. Dr. Harris with Cardiology. 4. Dr. Singh With Nephrology. SUBJECTIVE: The patient is intubated and sedated, in prone position. OBJECTIVE: VITAL SIGNS: Temperature 99.7, pulse is 79, respirations 36, blood pressure 151/59, pulse ox is 96% on vent. GENERAL: Sedated and intubated. HEENT: Normocephalic. NG tube in place. CARDIOVASCULAR: Regular rate and rhythm. LUNGS: With decreased breath sounds. ABDOMEN: Soft, obese. NEURO: Sedated. MUSCULOSKELETAL: Edema generalized. SKIN: Dry. LABORATORY DATA: WBC 13.08, hemoglobin 8.6, hematocrit 28.8, platelets 247. Sodium 150, potassium is 4.0, BUN is 50, creatinine 0.86, estimated GFR is greater than 60, blood glucose is 156, AST 30, ALT 36. Chest x-ray, stable pulmonary findings, no subcutaneous emphysema. ASSESSMENT AND PLAN: 1. Acute respiratory failure due to coronavirus disease-19 pneumonia. Remains intubated and sedated. Vent management per horticulture professor. Chest x-ray with no interval change. WBC 13.0. Continue to monitor antibiotics per Infectious Disease. 2. Chronic anemia. Hemoglobin 8.6. We will continue to monitor. 3. Generalized edema. Lasix drip on hold due to hypernatremia. Free water increased for the hypernatremia. 4. Urinary tract infection with Martina albicans. Continue fluconazole per ID. 5. Deep vein thrombosis prophylaxis. Continue Lovenox. 6. Obesity. Dictated by MARAH Castro Stacyching Anmol Rodriguez MD MY/MODL /[id number] Seen and examined on 05/26/20. Agree with the findings and plan as documented by MARAH Esqueda. MTDD
--- NOTE | 2020-05-26 23:25 | NUR ---
Dr. Barkley was paged at [phone]. Provider called back at [phone]. Pt has sustained a MAP greater than 100 according to ART. SBP maintaining above 170 and DBP greater than 90. Automatic cuff correlating with ART line. PRN 10mg hydralazine given over an hr ago. Sedation increased from 7mg/hr Versed to 10mg/hr and Fentanyl at 250mcg. Pt remains sedated on BHARTI. Pt is synchronized with vent settings. Peak pressures and TV WNL. Pt's HOB at 45 degrees. Pt is also noted to have trended down in saturation...from beginning of shift, 97% to now 89%. RT has been called and pt has been inlined and orally suctioned with scant secretions. Pt remains in NSR with HR maintaining 80s-90s. Dr. Barkley gave VO to give labetolol 20mg IVP Q 12hrs for SBP greater than 160. NO other orders given.
[2020-05-26] MEDS ORDERED: LABETALOL HCL 5 MG/ML 20ML VIAL IV PRN (23:45)
[2020-05-27] VITALS (25 sets, daily range): BP systolic 127–168; BP diastolic 53–82
--- NOTE | 2020-05-27 00:35 | NUR ---
Family called for an update. Mackenzie Bob, daughter of patient, called with questions concerning DNR status. Family was informed of the definition and that DNR does NOT mean do not continue care. It was advised to call on dayshift to speak to patient's attending provider in order to better help with the understanding of DNR code status to better guide them in their decisions for patient's well being.
[2020-05-27] MEDS: FENTANYL 2000MCG/NS 250 250 ML IV PRN ×2 (02:07→14:57)
[2020-05-27] MEDS: ROCURONIUM BROMIDE 250 MG in SODIUM CHLORIDE 0.9% 250ML 225 ML IV SCH ×3 (02:14→23:34)
[2020-05-27] MEDS ORDERED: SODIUM CHLORIDE 0.9% 250ML 250 ML ONE (03:32)
--- NOTE | 2020-05-27 04:30 | NUR ---
While completing cheung/andrew care, pt is noted to have a thick milky/copious amount like discharge coming from pineal area. Pt was cleaned with CHG. DTI also noted on penis from cheung. Area rinsed with CHG and water and patted dry.
[2020-05-27] MEDS: MIDAZOLAM HCL 5MG/ML 10ML VIAL 100 ML IV PRN ×3 (04:36→14:57)
[2020-05-27 05:06] LABS: BASOPHILS # (AUTO) 0.1 (0.0-0.1); BASOPHILS % 0.4 % (0.0-1.0); EOSINOPHILS # (AUTO) 0.2 (0.0-0.4); EOSINOPHILS % 1.5 % (0.0-6.0); HEMATOCRIT 30.7 % (38.2-49.6); HEMOGLOBIN 9.1 g/dL (14.0-18.0); LYMPHOCYTES # (AUTO) 1.9 (1.0-3.2); LYMPHOCYTES % 12.1 % (18.0-39.1); MEAN CORPUSCULAR HEMOGLOBIN 28.9 pg (28-32); MEAN CORPUSCULAR HGB CONC 29.6 g/dL (31-35); MEAN CORPUSCULAR VOLUME 97.5 fL (81-99); MONOCYTES # (AUTO) 1.1 (0.2-0.8); MONOCYTES % 6.8 % (4.4-11.3); NEUTROPHILS # (AUTO) 11.7 (2.1-6.9); NEUTROPHILS % 73.6 % (38.7-80.0); PLATELET COUNT 314 x10e3/uL (140-360); RED BLOOD COUNT 3.15 x10e6/uL (4.3-5.7); RED CELL DISTRIBUTION WIDTH 15.6 % (11.7-14.4)
[2020-05-27 06:34] LABS: ALANINE AMINOTRANSFERASE 35 IU/L (0-55); ALBUMIN 2.5 g/dL (3.5-5.0); ALBUMIN/GLOBULIN RATIO 0.7 (0.8-2.0); ALKALINE PHOSPHATASE 70 IU/L (40-150); ANION GAP 12.1 mmol/L (8-16); BLOOD UREA NITROGEN 46 mg/dL (7-26); BUN/CREATININE RATIO 63 (6-25); CALCIUM 8.5 mg/dL (8.4-10.2); CARBON DIOXIDE 36 mmol/L (22-29); CHLORIDE 106 mmol/L (98-107); CREATININE, SERUM 0.73 mg/dL (0.72-1.25); EST GLOMERULAR FILTRATION RATE > 60 ML/MIN (60-); GLUCOSE 126 mg/dL (74-118); POTASSIUM 4.1 mmol/L (3.5-5.1); SODIUM 150 mmol/L (136-145)
[2020-05-27] MEDS ORDERED: FUROSEMIDE INJ 10 MG/ML 4 ML VIAL IV ONE (08:30)
[2020-05-27] MEDS: ENOXAPARIN SOD INJ 40 MG/0.4 ML SYR SC SCH ×2 (08:34→21:00)
[2020-05-27] MEDS: HYDROCHLOROTHIAZIDE 25 MG TAB PO SCH (08:34)
[2020-05-27] MEDS: POTASSIUM CHLORIDE 20MEQ/15ML UDC NG SCH (08:34)
[2020-05-27] MEDS: BALSAM PERU/CASTOR OIL 60 GM OINT...G. TP SCH (08:35)
--- NOTE | 2020-05-27 08:47 | Progress Note ---
DATE: Pulmonary Critical Care Progress Note SUBJECTIVE: The patient has remained in the supine position overnight. He continues on PRVC at a rate of 36 with a PEEP of 12. His FiO2 is set at 100% and his tidal volume is 350. The patient continues on Versed and fentanyl. He is also on rocuronium. He is receiving enteral feedings with free water. PHYSICAL EXAMINATION: VITAL SIGNS: The blood pressure is 133/56 and the pulse is 75. Saturation is 95%. He is on the current ventilator settings as noted above. HEENT: He has an oral endotracheal tube. He has an arterial line in place. CARDIAC: Reveals a regular rate and rhythm with normal S1 and S2. LUNGS: Auscultation of lungs reveals rhonchorous breath sounds bilaterally. There is no wheezing. ABDOMEN: Soft and nontender. There is no rebound or guarding. EXTREMITIES: Shows 1 to 2+ leg edema bilaterally. ABDOMEN: Soft and nontender. There is no rebound or guarding. EXTREMITIES: Examination of the extremities shows edema as noted above. NEUROLOGICAL: Shows the patient to be sedated. LABORATORY DATA: BUN to creatinine ratio is 46 to 0.73. Sodium is 150 and the carbon dioxide is 36. The albumin is 2.5. White blood cell count is 15.9 and hemoglobin is 9.1. The platelet count is 314. IMPRESSION: 1. Acute respiratory failure. 2. Viral pneumonia and COVID-19 infection. 3. Diabetes. 4. Anemia secondary to chronic blood loss. 5. Total body edema with intravascular depletion. 6. Hypertension. 7. Hypernatremia. PLAN: 1. The patient is scheduled to receive albumin and Lasix today. 2. Continue PRVC mode of ventilation and monitor ABGs. 3. Continue free water. 4. Continue Versed, fentanyl and rocuronium. 5. Continue Lovenox. 6. Case discussed with the daughter, Cardiology, nursing, Respiratory, and Internal Medicine. Greater than 35 minutes in direct critical care time. Manuel Quigley MD [facility]/MODL /[id number]
[2020-05-27] MEDS: ALBUMIN 25% 12.5GM 50ML 100 ML IV SCH ×3 (08:56→20:59)
[2020-05-27] MEDS: FAMOTIDINE 20 MG/2 ML VIAL IV SCH ×2 (08:56→17:26)
[2020-05-27 10:13] LABS: ABG HCO3 38 mmol/L (22-26); ABG PCO2 65 mmHg (35-45); ABG PH 7.38 (7.35-7.45); ABG PO2 68 mmHg (80-105); ABG TCO2 40
[2020-05-27] MEDS ORDERED: ALBUMIN 25% 25GM 100ML 0.25 GM/ML BTL IV SCH (12:00)
[2020-05-27] MEDS ORDERED: ALBUMIN 25% 12.5GM 50ML 100 ML IV SCH (12:00)
--- NOTE | 2020-05-27 12:49 | Diagnostic Imaging Report ---
Examination: Single AP view of the chest. COMPARISON: 05/08/2020. INDICATION: Possible subcutaneous emphysema. DISCUSSION: Lines/tubes: Endotracheal tube is not well visualized due to overlying an NG tube, however, statistically particularly appears approximately 2.6 cm proximal to the cadence. NG tube extends below the diaphragm with distal tip not included. Lungs: Bilateral lower lobe patchy groundglass and airspace consolidations again observed.. Pleura: Probable bilateral small pleural effusions. No pneumothorax. Heart and mediastinum: The heart and the mediastinum are unremarkable. Bones and soft tissues: No acute bony abnormalities. No subcutaneous emphysema visualized. IMPRESSION: 1. Stable examination. Bilateral lower lobe airspace disease. Signed by: Dr. Claudio Littlejohn M.D. on 05/27/2020 12:46 PM
[2020-05-27] MEDS: LACTULOSE SYRUP 20 GM/30 ML UDC PO PRN (12:54)
--- NOTE | 2020-05-27 16:36 | NUR ---
infectious disease per his note Patient was intensive care is intubated sedated chest tube NG tube Rectal tube Discussed with the medical team he patient has remained in the supine position overnight. He continues on PRVC at a rate of 36 with a PEEP of 12. His FiO2 is set at 100% and his tidal volume is 350. The patient continues on Versed and fentanyl. He is also on rocuronium. He is receiving enteral feedings with free water. PHYSICAL EXAMINATION: VITAL SIGNS: The blood pressure is 133/56 and the pulse is 75. Saturation is 95%. He is on the current ventilator settings as noted above. HEENT: He has an oral endotracheal tube. He has an arterial line in place. CARDIAC: Reveals a regular rate and rhythm with normal S1 and S2. LUNGS: Auscultation of lungs reveals rhonchorous breath sounds bilaterally. There is no wheezing. ABDOMEN: Soft and nontender. There is no rebound or guarding. EXTREMITIES: Shows 1 to 2+ leg edema bilaterally. ABDOMEN: Soft and nontender. There is no rebound or guarding. EXTREMITIES: Examination of the extremities shows edema as noted above. NEUROLOGICAL: Shows the patient to be sedated. LABORATORY DATA: BUN to creatinine ratio is 46 to 0.73. Sodium is 150 and the carbon dioxide is 36. The albumin is 2.5. White blood cell count is 15.9 and hemoglobin is 9.1. The platelet count is 314. Covid 19 Respiratory failure Immunocompromised patient Gangrene of the toes DVT Aspiration pneumonia Continue as ordered and discuss her medical team
[2020-05-27] MEDS: FLUCONAZOLE 400MG/200ML BAG 200 ML IV SCH (18:30)
--- NOTE | 2020-05-27 19:21 | Progress Note ---
DATE: 05/27/2020 Cardiology Progress Note. SUBJECTIVE: Mr. Bob remains intubated and sedated. OBJECTIVE: VITAL SIGNS: Temperature 99.4, heart rate 78, blood pressure 141/65, respiratory rate 36, O2 saturation 98%. BMI 35. GENERAL: Intubated and sedated. HEENT: Improved facial edema. NECK: Supple. CHEST: Rales and decreased breath sounds. CARDIOVASCULAR: Regular rate and rhythm. Normal S1, S2. ABDOMEN: Soft. Bowel sounds positive. EXTREMITIES: 1+ edema, improved overall. Normothermic extremities. CARDIOVASCULAR MEDICATIONS: Reviewed, receivin. Albumin. 2. Lovenox 40 q.12 hours. 3. Furosemide 40 IV x1. 4. Hydralazine 10 q.4. 5. Hydrochlorothiazide 12.5 mg daily. STUDIES: Reviewed, sodium 150, potassium 4.1, chloride 106, bicarbonate remains at 36, BUN 46, creatinine 0.7, glucose 126. White blood cells 15.9, hemoglobin 9.6, platelets 314. INR 1.46, PT 18.7, PTT 30.9. ASSESSMENT AND PLAN: A 65-year-old man presents with acute respiratory failure in the setting of COVID-19 infection, acquired pneumonia, history of hypertension, morbid obesity, acute on chronic diastolic heart failure, and anemia. RECOMMEND: Continue current cardiovascular medications. From a volume status, standpoint has improved. Monitor H and H. Allow further redistribution of fluid balance to intravascular space with assistance of albumin. Mario Harris MD [facility]/MODL /[id number]
[2020-05-27 20:31] LABS: ABG HCO3 38 mmol/L (22-26); ABG PCO2 71 mmHg (35-45); ABG PH 7.34 (7.35-7.45); ABG PO2 64 mmHg (80-105)
[2020-05-27 20:32] LABS: ABG TCO2 41
[2020-05-27] MEDS: LATANOPROST(OPTH) 2.5 ML BTL OP SCH (20:59)
--- NOTE | 2020-05-27 21:45 | Progress Note ---
DATE: 05/27/2020 SUBJECTIVE: Intubated, sedated, cannot give history. OBJECTIVE: VITAL SIGNS: Temperature 99.4, pulse 82, respiratory rate 36, blood pressure 158/60. GENERAL: Intubated, sedated. SKIN: No rash. HEENT: Endotracheal tube in place. LUNGS: Decreased breath sounds. HEART: Regular rate and rhythm. Normal S1 and S2. GI: Abdomen is soft, nondistended. NEUROLOGIC: Sedated. PSYCHIATRIC: Sedated. LABORATORY DATA: Laboratory [place], white count 15.9, hemoglobin 9.1, platelet count 314, creatinine is 0.7, sodium is 150. ASSESSMENT AND PLAN: 1. Acute respiratory failure due to COVID-19 pneumonia. We will continue vent management per instrument tester. His WBC is higher today. We will continue antibiotic per Infectious Disease specialist. 2. Chronic anemia. Hemoglobin stable. 3. Hypernatremia, stable as well. 4. GI and DVT prophylaxis. Lovenox. MD ASHWIN Chavez/MIKE /[id number]
[2020-05-28] VITALS (24 sets, daily range): BP systolic 125–177; BP diastolic 52–82
[2020-05-28] MEDS: MIDAZOLAM HCL 5MG/ML 10ML VIAL 100 ML IV PRN ×4 (01:21→18:36)
[2020-05-28 05:11] LABS: BASOPHILS % 0.3 % (0.0-1.0); EOSINOPHILS # (AUTO) 0.9 (0.0-0.4); EOSINOPHILS % 6.6 % (0.0-6.0); HEMATOCRIT 29.3 % (38.2-49.6); HEMOGLOBIN 8.8 g/dL (14.0-18.0); LYMPHOCYTES # (AUTO) 1.6 (1.0-3.2); LYMPHOCYTES % 12.3 % (18.0-39.1); MEAN CORPUSCULAR HEMOGLOBIN 29.3 pg (28-32); MEAN CORPUSCULAR VOLUME 97.7 fL (81-99); MONOCYTES # (AUTO) 0.7 (0.2-0.8); MONOCYTES % 5.2 % (4.4-11.3); NEUTROPHILS # (AUTO) 9.5 (2.1-6.9); NEUTROPHILS % 71.7 % (38.7-80.0); PLATELET COUNT 239 x10e3/uL (140-360); RED CELL DISTRIBUTION WIDTH 15.8 % (11.7-14.4)
[2020-05-28 05:25] LABS: ALANINE AMINOTRANSFERASE 33 IU/L (0-55); ALBUMIN/GLOBULIN RATIO 0.9 (0.8-2.0); ALKALINE PHOSPHATASE 59 IU/L (40-150); ANION GAP 7.7 mmol/L (8-16); BLOOD UREA NITROGEN 32 mg/dL (7-26); BUN/CREATININE RATIO 49 (6-25); CARBON DIOXIDE 40 mmol/L (22-29); CHLORIDE 101 mmol/L (98-107); CREATININE, SERUM 0.65 mg/dL (0.72-1.25); EST GLOMERULAR FILTRATION RATE > 60 ML/MIN (60-); GLUCOSE 113 mg/dL (74-118); POTASSIUM 3.7 mmol/L (3.5-5.1); SODIUM 145 mmol/L (136-145)
[2020-05-28 07:52] LABS: ABG PH 7.38 (7.35-7.45)
[2020-05-28 07:53] LABS: ABG HCO3 41 mmol/L (22-26); ABG PCO2 69 mmHg (35-45); ABG PO2 69 mmHg (80-105); ABG TCO2 43
[2020-05-28] MEDS: ROCURONIUM BROMIDE 1,250 MG in SODIUM CHLORIDE 0.9% 250ML 125 ML IV PRN (08:08)
[2020-05-28] MEDS: HEPARIN SOD/SOD CHLORIDE 1,000 ML IV SCH (09:00)
[2020-05-28] MEDS: FAMOTIDINE 20 MG/2 ML VIAL IV SCH ×2 (09:33→17:26)
[2020-05-28] MEDS: ENOXAPARIN SOD INJ 40 MG/0.4 ML SYR SC SCH ×2 (09:33→21:50)
[2020-05-28] MEDS: HYDROCHLOROTHIAZIDE 25 MG TAB PO SCH (09:33)
[2020-05-28] MEDS: POTASSIUM CHLORIDE 20MEQ/15ML UDC NG SCH (09:33)
[2020-05-28] MEDS: BALSAM PERU/CASTOR OIL 60 GM OINT...G. TP SCH (09:33)
[2020-05-28] MEDS ORDERED: FUROSEMIDE INJ 100 MG in SODIUM CHLORIDE 0.9% 100 ML 90 ML IV SCH (10:45)
[2020-05-28] MEDS: ACETAZOLAMIDE SODIUM 500 MG/VIAL IV SCH ×2 (10:48→21:50)
[2020-05-28] MEDS: FENTANYL 2000MCG/NS 250 250 ML IV PRN ×2 (10:51→18:35)
[2020-05-28] MEDS: LACTULOSE SYRUP 20 GM/30 ML UDC PO PRN (10:52)
[2020-05-28] MEDS: FUROSEMIDE INJ 100 MG in SODIUM CHLORIDE 0.9% 100 ML 90 ML IV SCH ×2 (11:00→21:00)
--- NOTE | 2020-05-28 11:07 | Progress Note ---
DATE: SUBJECTIVE: The patient is currently prone. He remains on a PRVC mode of ventilation at a rate of 36 with the tidal volume of 350. His PEEP is set at 12. His FiO2 is set at 100%. He remains on Versed and fentanyl. He is also on rocuronium. OBJECTIVE: VITAL SIGNS: The patient is afebrile. The blood pressure is 177/78, saturation is 92%, pulse is 73. HEENT: Shows no facial swelling or erythema. The oropharynx is normal. There is an oral endotracheal tube. There is a right IJ line. CARDIAC: Reveals regular rate and rhythm with normal S1 and S2. LUNGS: Auscultation of lungs reveals crackles at the bases. There is no wheezing. ABDOMEN: Soft nontender. There is no rebound or guarding. EXTREMITIES: Shows no leg edema or calf tenderness. There is no cyanosis or clubbing. LABORATORY DATA: BUN to creatinine ratio is 32 to 0.65. Carbon dioxide is 40 and the sodium is 145. The albumin is 3. White blood cell count is 13.2 and hemoglobin is 8.8. The platelet count is 234. ASSESSMENT: 1. Acute respiratory failure. 2. Viral pneumonia coronavirus disease-19 infection. 3. Total body edema with intravascular depletion. 4. Diabetes. 5. Anemia secondary to chronic blood loss. 6. Hypertension. PLAN: 1. The patient will receive Diamox today along with a Lasix drip for 12 hours. 2. The patient may need albumin or colloid as needed to help control fluid into the intravascular space. 3. Continue free water through the feeding tube. 4. Continue current mode of ventilation and monitor ABGs. 5. Continue Versed and fentanyl and rocuronium. 6. Continue Lovenox. 7. Greater than 35 minutes in direct critical care time. Manuel Quigley MD [facility]/MODL /[id number]
--- NOTE | 2020-05-28 14:04 | Progress Note ---
DATE: 05/26/2020 CARDIOLOGY PROGRESS NOTE: SUBJECTIVE: Remains intubated and sedated. OBJECTIVE: VITAL SIGNS: Temperature 98.2, heart rate 58, blood pressure 95/71, respiratory rate 16, and O2 saturation 92%, BMI 30. GENERAL: Intubated and sedated. HEENT: Periorbital edema and facial edema. CHEST: With rales and decreased breath sounds. CARDIOVASCULAR: Regular rate and rhythm. Normal S1, S2. ABDOMEN: Soft. Bowel sounds positive. EXTREMITIES: 1+ edema. CARDIOVASCULAR MEDICATIONS: 1. Reviewed. Atorvastatin 40 mg at bedtime, metoprolol succinate 25 mg daily, and aspirin 81 mg daily. 2. Dexamethasone 6 mg daily. STUDIES: Reviewed. Potassium 4.1, bicarbonate 25, creatinine 0.96, and glucose 141. White blood cells 11, hemoglobin 12.2, and platelets 246. INR 0.8. ASSESSMENT: 1. A 65-year-old man with [id number] diastolic heart failure. 2. COVID-19 infection and community-acquired pneumonia. 3. Acute respiratory failure. 4. Hypertension. 5. Hypernatremia. RECOMMENDATIONS: Initiate or increase free water supplementation. Allow rebalancing of fluids given the patient switch from prone position to decubitus supine position. Extravascularly remains volume overloaded. Would benefit in my opinion from resuming diuretics after overnight, which should rebalancing. Continue rest of cardiovascular medications. MD CHRISTINE Bal/MIKE /[id number] [place]
--- NOTE | 2020-05-28 15:42 | NUR ---
1400: Patient turned to supine position 1445: Patient O2 sat reading 82-85%, patient turned to left lateral position 1455: Patient O2 sat reading 69-71%, patient turned back to supine position 1500: Patient O2 sat reading <65%, emergently re-proned. Romi alex RN and Dr. Steven Quigley informed. Stat CXR reordered 1525: ETT advanced 2 cm, is now 26 at the lip. O2 sat reading 88-90% on PRVC Vt350/P13/R36/100%
--- NOTE | 2020-05-28 16:24 | Diagnostic Imaging Report ---
EXAMINATION: CHEST SINGLE (PORTABLE) COMPARISON: Chest x-ray 05/27/2020 INDICATION: ^rule out pneumothorax ^[id number] ^1513 DISCUSSION: Frontal view of the chest obtained at 1513 hours. HEART AND MEDIASTINUM: Stable cardiomegaly. LINES: Endotracheal tube terminates at the clavicular heads. Enteric tube extends past the diaphragm. Left PICC line terminates in the innominate vein and is stable in position. LUNGS/PLEURA: Widespread pulmonary infiltrates in the mid and lower lung zones are redemonstrated. No new pulmonary findings. No large effusion or pneumothorax. BONES AND SOFT TISSUES: No focal osseous lesion. The soft tissues are normal. IMPRESSION: 1. Support devices as described above. 2. No change in pulmonary infiltrates. No new cardiopulmonary process. No evidence of pneumothorax on this image. Signed by: Dr. René Khan MD on 05/28/2020 4:21 PM
[2020-05-28] MEDS: FLUCONAZOLE 400MG/200ML BAG 200 ML IV SCH (17:26)
[2020-05-28 20:25] LABS: ABG HCO3 41 mmol/L (22-26); ABG PCO2 78 mmHg (35-45); ABG PH 7.33 (7.35-7.45); ABG PO2 63 mmHg (80-105); ABG TCO2 43
[2020-05-28] MEDS ORDERED: ACETAZOLAMIDE SODIUM 500 MG/VIAL IV SCH (21:00)
[2020-05-28] MEDS: LATANOPROST(OPTH) 2.5 ML BTL OP SCH (21:50)
--- NOTE | 2020-05-28 21:58 | NUR ---
progress note Infectious disease note The patient was seen and examined chart reviewed Laboratory data reviewed medication list reviewed Discussed with the medical team intubated, sedated, cannot give any history. OBJECTIVE: VITAL SIGNS: Temperature 99.0, pulse 75, respiratory rate 36, blood pressure 140/58. GENERAL: Sedated, intubated. SKIN: No rash. HEENT: Endotracheal tube in place. LUNGS: Decreased breath sounds. HEART: Regular rate and rhythm. Normal S1, S2. GI: Abdomen is soft, nondistended. NEUROLOGIC: Sedated. PSYCHIATRIC: Sedated. LABORATORY DATA: White count 13, hemoglobin 8.8, platelet count 239, creatinine 0.65. ASSESSMENT AND PLAN: 1. Acute respiratory failure due to COVID-19 pneumonia. Continue supportive care We will continue vent management per laundry routeman. aspiration pneumonia treat as needed 2. Chronic anemia. His hemoglobin is stable. 3. Hypernatremia, better today. 4. Gastrointestinal and deep vein thrombosis prophylaxes. Lovenox.
--- NOTE | 2020-05-28 22:56 | Progress Note ---
DATE: 05/28/2020 SUBJECTIVE: Intubated, sedated, cannot give any history. OBJECTIVE: VITAL SIGNS: Temperature 99.0, pulse 75, respiratory rate 36, blood pressure 140/58. GENERAL: Sedated, intubated. SKIN: No rash. HEENT: Endotracheal tube in place. LUNGS: Decreased breath sounds. HEART: Regular rate and rhythm. Normal S1, S2. GI: Abdomen is soft, nondistended. NEUROLOGIC: Sedated. PSYCHIATRIC: Sedated. LABORATORY DATA: White count 13, hemoglobin 8.8, platelet count 239, creatinine 0.65. ASSESSMENT AND PLAN: 1. Acute respiratory failure due to COVID-19 pneumonia. We will continue vent management per control director. We will continue antibiotic per Infectious Disease specialist. 2. Chronic anemia. His hemoglobin is stable. 3. Hypernatremia, better today. 4. Gastrointestinal and deep vein thrombosis prophylaxes. Lovenox. MD ASHWIN Chavez/MIKE /[id number]
[2020-05-29] VITALS (25 sets, daily range): BP systolic 116–168; BP diastolic 53–87
[2020-05-29] MEDS: MIDAZOLAM HCL 5MG/ML 10ML VIAL 100 ML IV PRN ×4 (00:23→21:00)
[2020-05-29] MEDS: FENTANYL 2000MCG/NS 250 250 ML IV PRN ×3 (01:43→18:00)
[2020-05-29 05:21] LABS: BASOPHILS % 0.3 % (0.0-1.0); EOSINOPHILS # (AUTO) 1.2 (0.0-0.4); HEMATOCRIT 30.4 % (38.2-49.6); HEMOGLOBIN 9.1 g/dL (14.0-18.0); LYMPHOCYTES # (AUTO) 1.7 (1.0-3.2); LYMPHOCYTES % 11.4 % (18.0-39.1); MEAN CORPUSCULAR HEMOGLOBIN 28.8 pg (28-32); MEAN CORPUSCULAR HGB CONC 29.9 g/dL (31-35); MEAN CORPUSCULAR VOLUME 96.2 fL (81-99); MONOCYTES # (AUTO) 0.7 (0.2-0.8); MONOCYTES % 4.5 % (4.4-11.3); NEUTROPHILS # (AUTO) 10.9 (2.1-6.9); PLATELET COUNT 230 x10e3/uL (140-360); RED BLOOD COUNT 3.16 x10e6/uL (4.3-5.7); RED CELL DISTRIBUTION WIDTH 15.2 % (11.7-14.4)
[2020-05-29 05:32] LABS: ALANINE AMINOTRANSFERASE 26 IU/L (0-55); ALBUMIN 2.7 g/dL (3.5-5.0); ALBUMIN/GLOBULIN RATIO 0.8 (0.8-2.0); ALKALINE PHOSPHATASE 57 IU/L (40-150); ANION GAP 8.9 mmol/L (8-16); BLOOD UREA NITROGEN 24 mg/dL (7-26); BUN/CREATININE RATIO 36 (6-25); CALCIUM 9.5 mg/dL (8.4-10.2); CARBON DIOXIDE 40 mmol/L (22-29); CHLORIDE 96 mmol/L (98-107); CREATININE, SERUM 0.66 mg/dL (0.72-1.25); EST GLOMERULAR FILTRATION RATE > 60 ML/MIN (60-); GLUCOSE 87 mg/dL (74-118); POTASSIUM 3.9 mmol/L (3.5-5.1); SODIUM 141 mmol/L (136-145)
[2020-05-29 07:31] LABS: ABG PCO2 67 mmHg (35-45); ABG PH 7.37 (7.35-7.45); ABG PO2 70 mmHg (80-105)
[2020-05-29 07:32] LABS: ABG HCO3 39 mmol/L (22-26); ABG TCO2 41
[2020-05-29] MEDS: HEPARIN SOD/SOD CHLORIDE 1,000 ML IV SCH (08:25)
[2020-05-29] MEDS: ACETAZOLAMIDE SODIUM 500 MG/VIAL IV SCH ×2 (08:33→20:37)
[2020-05-29] MEDS: FAMOTIDINE 20 MG/2 ML VIAL IV SCH ×2 (08:33→17:54)
[2020-05-29] MEDS: HYDROCHLOROTHIAZIDE 25 MG TAB PO SCH (08:34)
[2020-05-29] MEDS: BALSAM PERU/CASTOR OIL 60 GM OINT...G. TP SCH (08:34)
[2020-05-29] MEDS: ENOXAPARIN SOD INJ 40 MG/0.4 ML SYR SC SCH ×2 (08:34→20:37)
[2020-05-29] MEDS: POTASSIUM CHLORIDE 20MEQ/15ML UDC NG SCH (08:34)
--- NOTE | 2020-05-29 10:43 | Progress Note ---
DATE: 05/29/2020 Cardiology Progress Note SUBJECTIVE: Intubated and sedated. OBJECTIVE: VITAL SIGNS: Temperature 99.1, heart rate 73, respiratory rate 36, blood pressure 144/56, and O2 saturation 93% on vent support. GENERAL: Intubated and sedated. NECK: Supple. CHEST: With rales and decreased breath sounds. CARDIOVASCULAR: Regular rate and rhythm. Normal S1 and S2. ABDOMEN: Soft. Bowel sounds positive. EXTREMITIES: Trace edema. Normothermic extremities. CARDIOVASCULAR MEDICATIONS: Reviewed. Hydralazine 12.5 mg daily, hydralazine 10 q.4 hours, and Lovenox 40 mg q.12 hours. STUDIES: Reviewed. White blood cells 15, hemoglobin 9.1, and platelets 230. Creatinine 0.6. ASSESSMENT AND PLAN: COVID-19 infection, community-acquired pneumonia, acute respiratory failure, hypertension, hypernatremia, and [id number] diastolic heart failure. RECOMMEND: Continue to monitor electrolytes and volume status. Continue free water supplementation as needed. Sodium has improved today at 141. Continue rest of cardiovascular medication. Mario Harris MD [facility]/MODL /[id number]
--- NOTE | 2020-05-29 11:43 | Progress Note ---
DATE: Pulmonary Critical Care Progress Note SUBJECTIVE: The patient remains in the prone position. He received Lasix drip yesterday and there was significant diuresis. He remains on a PRVC mode of ventilation at a rate of 36 with a tidal volume of 350. His PEEP is set at 12. His FiO2 is set at 100%. PHYSICAL EXAMINATION: VITAL SIGNS: Blood pressure is 144/56 and the saturation is 95% on the above settings. HEENT: Shows no facial swelling or erythema. The oropharynx is normal. There is an oral endotracheal tube. There is a PICC line in place. There is an arterial line. CARDIAC: Reveals regular rate and rhythm with normal S1 and S2. LUNGS: Auscultation of lungs reveals rhonchorous breath sounds bilaterally. There is no wheezing. ABDOMEN: Soft and nontender. There is no rebound or guarding. EXTREMITIES: Shows no leg edema or calf tenderness. There is no cyanosis or clubbing. SKIN: Shows no rashes. LABORATORY DATA: BUN to creatinine ratio is normal. Electrolytes are within normal limits. The albumin is 2.7. White blood cell count is 15.2 and the hemoglobin is 9.1. The platelet count is 230. IMPRESSION: 1. Acute respiratory failure. 2. Viral pneumonia and COVID-19 infection. 3. Diabetes. 4. Anemia secondary to chronic blood loss. 5. Hypertension. PLAN: 1. Continue current ventilator settings. 2. Continue prone position. 3. Continue Diamox and Lasix for diuresis. 4. Continue free water through enteral feeding tube. 5. Continue Versed, fentanyl, and rocuronium. 6. Continue Lovenox. 7. Complete antibiotics. 8. Case discussed with Respiratory, nursing, Infectious Disease, Cardiology, and Nephrology. Greater than 35 minutes in direct critical care time. Manuel Quigley MD [facility]/MODL /[id number]
[2020-05-29] MEDS ORDERED: ALBUMIN 25% 25GM 100ML 0.25 GM/ML BTL IV SCH (12:00)
[2020-05-29] MEDS ORDERED: ALBUMIN 25% 25GM 100ML 100 ML IV SCH (12:00)
[2020-05-29] MEDS: ALBUMIN 25% 12.5GM 50ML 100 ML IV SCH ×3 (12:28→23:42)
--- NOTE | 2020-05-29 14:14 | NUR ---
this is a progress note from infectious disease The patient is seen and examined and chart reviewed discussed with the medical team medication list reviewed he patient remains in the prone position. He received Lasix drip yesterday and there was significant diuresis. He remains on a PRVC mode of ventilation at a rate of 36 with a tidal volume of 350. His PEEP is set at 12. His FiO2 is set at 100%. PHYSICAL EXAMINATION: VITAL SIGNS: Blood pressure is 144/56 and the saturation is 95% on the above settings. HEENT: Shows no facial swelling or erythema. The oropharynx is normal. There is an oral endotracheal tube. There is a PICC line in place. There is an arterial line. CARDIAC: Reveals regular rate and rhythm with normal S1 and S2. LUNGS: Auscultation of lungs reveals rhonchorous breath sounds bilaterally. There is no wheezing. ABDOMEN: Soft and nontender. There is no rebound or guarding. EXTREMITIES: Shows no leg edema or calf tenderness. There is no cyanosis or clubbing. SKIN: Shows no rashes. LABORATORY DATA: BUN to creatinine ratio is normal. Electrolytes are within normal limits. The albumin is 2.7. White blood cell count is 15.2 and the hemoglobin is 9.1. The platelet count is 230. IMPRESSION: 1. Acute respiratory failure. 2. Viral pneumonia and COVID-19 infection. 3. Diabetes. 4. Anemia secondary to chronic blood loss. 5. Hypertension. To continue plan of care as ordered
--- NOTE | 2020-05-29 16:24 | Progress Note ---
DATE: 05/29/2020 Renal Progress Note SUBJECTIVE: Events over the past 24 hours have been noted. The patient remains intubated. He remains on a ventilator. He is in the prone position. PHYSICAL EXAMINATION: In the last 24 hours, his intake has been 3366, output has been 8100 VITAL SIGNS: Blood pressure 151/58, pulse 79, afebrile. GENERAL: The patient is prone. He is intubated. He is on a ventilator, sedated. HEENT: The patient is on a ventilator. He is prone. No JVD. CARDIOVASCULAR: Regular rate and rhythm. LUNGS: Decreased breath sounds at the bases bilaterally and slight crackles at the bases bilaterally. His FiO2 is 100% still. EXTREMITIES: The patient does have some still facial plethora and also some edema of the feet. He has SCDs on his legs. LABORATORY RESULTS: White count 15,000, hemoglobin and hematocrit of 9 and 30.4 respectively, platelet count 230,000. Sodium 141, potassium 3.9, chloride 96, bicarbonate 40, BUN and creatinine 24 and 0.66 respectively. IMPRESSION: 1. Edema total body water expansion. 2. Contraction metabolic alkalosis. 3. Hypernatremia-resolved. PLAN: The patient's renal function remains stable and his electrolytes are stable today except for the high bicarb with contraction alkalosis. He still has some total body water expansion and Lasix drip has been stopped, but actually he has been diuresing very well. According to the I's and O's, his output is about 8 L. I think we can continue Lasix drip has been turned off, it can remain off. If the urine output decreases, then we can reinstate it. For the contraction alkalosis, he is getting Diamox. It is possible that maybe even before this admission, the patient's facial features and he may have had this much edema on his upper part of his torso or body. He is on the hydrochlorothiazide, we will continue this. Ather MD LAWRENCE Singh/MIKE /[id number]
--- NOTE | 2020-05-29 17:45 | NUR ---
Nutrition Intervention Note RD Recommendation(s) for Physician: -Recommend modifying tube feeding to Vital AF 1.2 @ goal rate of 55 mL/hr (provides 1584 kcal, 99 g protein). Water/fluid management per MD Plan of Care: RD following, monitoring for tolerance and adequacy, tube feed recommendation Nutrition reason for involvement: follow up RD Assessment 05/29: Follow up. Chart reviewed. Pt remains intubated and sedated. MD note indicates that pt remains in the prone position. Pt is receiving Vital HP @ 20 mL/hr at this time. Current recommendations remain appropriate. Will continue to monitor. 05/24: Follow up. Pt remains intubated and sedated, requiring to be proned- no paralytic currently. Vital HP infusing at goal rate, providing >75% of estimated needs. Chart reviewed. Current TF rec's remain appropriate. Will continue to monitor. 05/22: Follow up. Pt remains intubated, paralyzed, and sedated. TF documented as Glucerna 1.2 at 30 ml/hr currently, not meeting needs. Pt requiring proning at times. Pt with chest tubes to output. Current TF rec's remain appropriate. Chart reviewed. Will continue to monitor. 05/17: Follow up. Chart reviewed. Pt remains intubated. RN reports that pts tube feeding is at 10 mL/hr at this time and pt is in the prone position. Current recommendations remain appropriate. Will continue to monitor. 05/12: Pt was intubated yesterday and tube feeding was ordered. It is recorded that pt consumed 25% of breakfast on 05/10 and was previously consuming 50-100% of meals. Recommendations provided. Will continue to monitor. 05/09: 65 YOM admitted for hypoxia and pneumonia due to COVID-19. Pt assessed today for LOS. Attempted to call pt's room x 2, no answer- unable to obtain hx at this time. No wt loss or poor intake indicated at admit per MD notes. Pt with 50-100% intake since admit. Pt currently on Vapotherm per current respiratory status. Labs and meds reviewed. LBM 05/08, skin intact. Chart reviewed. Will continue to monitor. Principal Problems/Diagnoses: hypoxia, pneumonia due to COVID-19 PMH: HTN, HLD GI: large, round, soft abdomen, last recorded BM 05/22 Skin: stage 2 pressure ulcer/suspected DTI left ear, stage 2 pressure ulcer bilateral cheek, stage 2 pressure ulcer lower urethral meatus Labs: 05/29: Na 141, K 3.9, BUN 24, Cr 0.66, Glu 87, Ca 9.5 05/24: Na 147, K 3, BUN 27, Cr 0.61, Gluc 100, POC Gluc 123-126, Ca 6.3, Mg 1.5 05/22: Na 143, K 4.5, BUN 28, Cr 0.77, Gluc 122, POC Gluc 122-136 (05/17/20) Na 141, K 4.2, BUN 18, Cr 0.61, Glu 87, Ca 8.7 (05/12/20) Na 141, K 5.4, BUN 33, Cr 0.76, Glu 118, Ca 7.9 Meds: fentanyl, pepcid, lactulose, rocuronium, hydralazine Ht: 66 inches Wt: 246 lbs (05/28) 218 lbs (05/09) BMI: 35.2 using weight of 218 lbs IBW: 142 lbs Malnutrition Evaluation (05/09/20) The patient does not meet criteria for a specified degree of malnutrition at this time. Will re-evaluate at follow-up as appropriate. Unable to assess due to current isolation precautions. Nutrition Prescription (Diet Order): Vital HP at 55 ml/hr (1320 kcal and 105 gm protein) infusing at 20 mL/hr Estimated Nutritional Needs: 8858-6447 calories/day (22-25 kcal/kg IBW) 97-129 g protein/day (1.5-2 g pro/kg IBW) Diet Adequacy: Not meeting calorie needs, Not meeting protein needs Tolerance: tolerating TF Diet Education Needs Assessment: Diet education is not indicated, pt is intubated Nutrition Care Level: moderate Nutrition Diagnosis: Inadequate oral intake related to acute respiratory failure/mechanical ventilation as evidenced by requiring enteral nutrition. Goal: Patient will meet 75-100% of estimated needs by follow up Progress: goal not met at current tube feed rate Interventions: - Composition, Rate, Route, Recommended Modifications Monitoring/Evaluation: -Total energy intake, Total protein intake, Formula/Solution, Weight change Signed: Ruth Kern RD, [place]
[2020-05-29 19:52] LABS: ABG HCO3 36 mmol/L (22-26); ABG PCO2 73 mmHg (35-45); ABG PH 7.31 (7.35-7.45); ABG PO2 87 mmHg (80-105); ABG TCO2 38
[2020-05-29] MEDS: FUROSEMIDE INJ 10 MG/ML 4 ML VIAL IV SCH (20:37)
[2020-05-29] MEDS: LATANOPROST(OPTH) 2.5 ML BTL OP SCH (20:37)
--- NOTE | 2020-05-29 22:00 | Progress Note ---
DATE: 05/29/2020 SUBJECTIVE: Intubated and sedated. Cannot give any history. OBJECTIVE: VITAL SIGNS: Temperature 99.1, pulse 77, respiratory rate 36, and blood pressure 133/64. GENERAL: Intubated and sedated. SKIN: No rash. HEENT: Endotracheal tube in place. LUNGS: Decreased breath sounds. HEART: Regular rate and rhythm. Normal S1 and S2. GI: Abdomen is soft and nondistended. NEUROLOGIC: Sedated. PSYCHIATRIC: Sedated. LABORATORY DATA: White count 15, hemoglobin 9, and platelet count 230. Creatinine 0.66. ASSESSMENT AND PLAN: 1. Acute respiratory failure due to COVID-19 pneumonia. We will continue Lasix drip and vent management per auto body repair technician. Infectious Disease specialist is on-board as well. 2. Chronic anemia. His hemoglobin is stable. 3. Gastrointestinal and deep venous thrombosis prophylaxis, Lovenox. Stacyching MD ASHWIN Jean-Baptiste/MIKE /[id number]
[2020-05-30] VITALS (24 sets, daily range): BP systolic 124–176; BP diastolic 48–87
[2020-05-30] MEDS ORDERED: SODIUM CHLORIDE 0.9% 250ML 250 ML ONE (02:51)
[2020-05-30] MEDS: MIDAZOLAM HCL 5MG/ML 10ML VIAL 100 ML IV PRN ×3 (04:40→19:32)
[2020-05-30] MEDS: FENTANYL 2000MCG/NS 250 250 ML IV PRN ×2 (04:40→15:03)
[2020-05-30 04:44] LABS: BASOPHILS % 0.2 % (0.0-1.0); EOSINOPHILS % 6.9 % (0.0-6.0); HEMATOCRIT 28.5 % (38.2-49.6); HEMOGLOBIN 8.6 g/dL (14.0-18.0); LYMPHOCYTES # (AUTO) 1.4 (1.0-3.2); MEAN CORPUSCULAR HGB CONC 30.2 g/dL (31-35); MONOCYTES % 6.4 % (4.4-11.3); NEUTROPHILS # (AUTO) 11.4 (2.1-6.9); NEUTROPHILS % 74.8 % (38.7-80.0); PLATELET COUNT 221 x10e3/uL (140-360); RED BLOOD COUNT 2.97 x10e6/uL (4.3-5.7); RED CELL DISTRIBUTION WIDTH 15.1 % (11.7-14.4)
[2020-05-30 05:06] LABS: ALANINE AMINOTRANSFERASE 21 IU/L (0-55); ALBUMIN 3.4 g/dL (3.5-5.0); ALKALINE PHOSPHATASE 52 IU/L (40-150); ANION GAP 12.2 mmol/L (8-16); BLOOD UREA NITROGEN 22 mg/dL (7-26); BUN/CREATININE RATIO 34 (6-25); CALCIUM 9.8 mg/dL (8.4-10.2); CARBON DIOXIDE 35 mmol/L (22-29); CHLORIDE 95 mmol/L (98-107); CREATININE, SERUM 0.65 mg/dL (0.72-1.25); EST GLOMERULAR FILTRATION RATE > 60 ML/MIN (60-); GLUCOSE 91 mg/dL (74-118); POTASSIUM 4.2 mmol/L (3.5-5.1); SODIUM 138 mmol/L (136-145)
[2020-05-30 07:21] LABS: ABG HCO3 37 mmol/L (22-26); ABG PCO2 75 mmHg (35-45); ABG PO2 85 mmHg (80-105); ABG TCO2 39
[2020-05-30] MEDS: ACETAZOLAMIDE SODIUM 500 MG/VIAL IV SCH ×2 (08:17→21:12)
[2020-05-30] MEDS: HEPARIN SOD/SOD CHLORIDE 1,000 ML IV SCH (08:17)
[2020-05-30] MEDS: FAMOTIDINE 20 MG/2 ML VIAL IV SCH ×2 (08:18→16:31)
[2020-05-30] MEDS: FUROSEMIDE INJ 10 MG/ML 4 ML VIAL IV SCH (08:18)
[2020-05-30] MEDS: ENOXAPARIN SOD INJ 40 MG/0.4 ML SYR SC SCH ×2 (08:19→20:31)
[2020-05-30] MEDS: BALSAM PERU/CASTOR OIL 60 GM OINT...G. TP SCH (08:19)
[2020-05-30] MEDS: POTASSIUM CHLORIDE 20MEQ/15ML UDC NG SCH (08:22)
[2020-05-30] MEDS: LACTULOSE SYRUP 20 GM/30 ML UDC PO PRN (08:22)
[2020-05-30] MEDS: HYDROCHLOROTHIAZIDE 25 MG TAB PO SCH (08:22)
[2020-05-30] MEDS ORDERED: VECURONIUM BROMIDE FOR INJ 20 MG VIAL IV SCH (09:15)
[2020-05-30] MEDS: FUROSEMIDE INJ 100 MG in SODIUM CHLORIDE 0.9% 100 ML 90 ML IV SCH (09:17)
--- NOTE | 2020-05-30 09:57 | Progress Note ---
DATE: Pulmonary Critical Care Progress Note SUBJECTIVE: The patient remains in the prone position. He was recently switched to pressure control at a rate of 36 with a PEEP of 10 and a pressure above PEEP of 30. His FiO2 is set at 100%. He remains on rocuronium as well as Versed and fentanyl. He is receiving enteral feedings. PHYSICAL EXAMINATION: VITAL SIGNS: The saturation is 97% on the above settings. His blood pressure is 151 over 60s and heart rate is 80. HEENT: Shows no facial swelling or erythema. There is an oral endotracheal tube. There is a right IJ line. Site is clean. There is no drainage. The patient has a regular rate and rhythm with normal S1, S2. LUNGS: Auscultation of lungs reveals a few crackles at the bases. ABDOMEN: Soft, nontender. There is no rebound or guarding. There is 1 to 2+ leg edema. LABORATORY DATA: BUN to creatinine ratio is normal. Carbon dioxide is 35. The other electrolytes are within normal limits. Albumin is 3.4. White blood cell count is 15.1, hemoglobin is 8.6, and the platelet count is 221. IMPRESSION: 1. Acute respiratory failure. 2. Viral pneumonia and COVID-19 infection. 3. Diabetes. 4. Anemia secondary to chronic blood loss. 5. Hypertension. 6. Mixed respiratory acidosis, metabolic alkalosis, and metabolic acidosis. PLAN: 1. Continue pressure control. Repeat ABG in 4 hours. 2. The patient will be switched back to the supine position later today. 3. Continue Lasix along with Diamox. 4. Continue to give enteral feedings and free water. 5. Continue Versed, fentanyl, and rocuronium. 6. Continue Lovenox. 7. Complete antibiotics. Greater than 35 minutes in direct critical care time. Manuel Quigley MD [facility]/MODL /[id number]
[2020-05-30 13:10] LABS: ABG HCO3 38 mmol/L (22-26); ABG PCO2 64 mmHg (35-45); ABG PH 7.38 (7.35-7.45); ABG PO2 79 mmHg (80-105); ABG TCO2 40
--- NOTE | 2020-05-30 14:24 | NUR ---
infectious disease progress note Patient seen and examined chart reviewed May 30, 2020 Patient remains intensive care unit The patient remains in the prone position. He was recently switched to pressure control at a rate of 36 with a PEEP of 10 and a pressure above PEEP of 30. His FiO2 is set at 100%. He remains on rocuronium as well as Versed and fentanyl. He is receiving enteral feedings. PHYSICAL EXAMINATION: VITAL SIGNS: The saturation is 97% on the above settings. His blood pressure is 151 over 60s and heart rate is 80. HEENT: Shows no facial swelling or erythema. There is an oral endotracheal tube. There is a right IJ line. Site is clean. There is no drainage. The patient has a regular rate and rhythm with normal S1, S2. LUNGS: Auscultation of lungs reveals a few crackles at the bases. ABDOMEN: Soft, nontender. There is no rebound or guarding. There is 1 to 2+ leg edema. LABORATORY DATA: BUN to creatinine ratio is normal. Carbon dioxide is 35. The other electrolytes are within normal limits. Albumin is 3.4. White blood cell count is 15.1, hemoglobin is 8.6, and the platelet count is 221. IMPRESSION: 1. Acute respiratory failure. 2. Viral pneumonia and COVID-19 infection. 3. Diabetes. 4. Anemia secondary to chronic blood loss. 5. Hypertension. 6. Mixed respiratory acidosis, metabolic alkalosis, and metabolic acidosis. cont as planned
--- NOTE | 2020-05-30 14:54 | Progress Note ---
DATE: 05/30/2020 Renal Progress Note SUBJECTIVE: Events over the past 24 hours have been noted. The patient remains intubated. He is on a ventilator. He is in the prone position. PHYSICAL EXAMINATION: VITAL SIGNS: Blood pressure 126/57, pulse 79, respiration 36, and he is still on 100% FiO2. 24 hour I's and O's, his intake has been 3089 and output 5000. GENERAL: The patient is prone. He is intubated. He is on a ventilator, sedated. HEENT: The patient is on a ventilator. He is prone. No JVD. CARDIOVASCULAR: Regular rate and rhythm. LUNGS: Decreased breath sounds at the bases bilaterally and slight crackles at the bases bilaterally. He is on 100% FiO2 still. EXTREMITIES: The patient does have some facial plethora and also some edema of the feet. He has SCDs on the legs. LABORATORY RESULTS: Sodium 138, potassium 4.2, chloride 95, bicarbonate 35, BUN and creatinine of 42 and 0.65 respectively. Hemoglobin and hematocrit of 8.6 and 28.5, white count 15, and calcium is 9.8. IMPRESSION: 1. Edema total body water expansion. 2. Contraction of metabolic alkalosis. 3. COVID pneumonia. 4. Acute respiratory failure. PLAN: The patient's renal function remained stable. As far as his fluid status, we want to continue for him to be in negative fluid balance. He is actually doing a good job with that, but Lasix was given today and also he is on a Lasix drip 5 mg an hour, this will be continued. He is also on hydrochlorothiazide, we will continue this also. This should help with the swelling. He is also getting some Diamox for the metabolic contraction alkalosis and this will be continued. Probably at some point if the patient still continues to have facial plethora and more edema, venogram can be done to rule out SVC syndrome, but at this point, he is really not stable enough for that. He is really struggling with his respiratory status from the COVID. Ather MD LAWRENCE Singh/MIKE /[id number]
--- NOTE | 2020-05-30 17:04 | Progress Note ---
DATE: 05/30/2020 Cardiology Progress Note SUBJECTIVE: Remains intubated and sedated. OBJECTIVE: VITAL SIGNS: Temperature 99.7, heart rate 72, respiratory rate 36, blood pressure 132/65, and O2 saturation 98% on vent support. GENERAL: Intubated and sedated. Prone position. NECK: Supple. CHEST: With decreased breath sounds. Dull to percussion and rales. CARDIOVASCULAR: Regular rate and rhythm. Normal S1, S2. ABDOMEN: Bowel sounds positive. EXTREMITIES: Trace edema. Normal thermic extremities. CARDIOVASCULAR MEDICATIONS: Reviewed. Lovenox 40 mg subcu q.12 hours, furosemide drip, potassium 40 mEq daily, hydralazine p.r.n. STUDIES: Reviewed. White blood cells 15, hemoglobin 8.6, platelets 221. Creatinine 0.6. Sodium 138, glucose 120, potassium 4.2. AST 22, ALT 21, alkaline phosphatase 52, albumin 3.4. ASSESSMENT AND PLAN: 1. COVID-19 infection. 2. Community-acquired pneumonia. 3. Acute respiratory failure. 4. Hypertension. 5. Nqsen-up-aqllagb diastolic heart failure. 6. Volume overload. RECOMMENDATIONS: 1. Continue diuretics. 2. Nephrology assisting with volume optimization. 3. Continue Lovenox. 4. Continue antihypertensive strategy at this point. Blood pressure remains at goal. MD CHRISTINE Bal/MIKE /[id number]
[2020-05-30] MEDS: LATANOPROST(OPTH) 2.5 ML BTL OP SCH (20:31)
--- NOTE | 2020-05-30 21:25 | Progress Note ---
DATE: 05/30/2020 SUBJECTIVE: Intubated, sedated, cannot give brief history. OBJECTIVE: VITAL SIGNS: Temperature 100.2, pulse 88, respiratory rate 38, blood pressure 176/63. GENERAL: Intubated, sedated. SKIN: No rash. HEENT: Endotracheal tube in place. LUNGS: Decreased breath sounds. HEART: Regular rate with normal S1 and S2. GI: Abdomen is soft, nondistended. NEUROLOGIC: Sedated. PSYCHIATRIC: Sedated. LABORATORY DATA: White count 15, hemoglobin 9, platelet count 241. Creatinine 0.65. ASSESSMENT AND PLAN: 1. Acute respiratory failure due to coronavirus disease 2019 pneumonia. We will continue Lasix drip and vent management. His white count remained stable at 15. 2. Chronic anemia. His hemoglobin is stable. 3. Gastrointestinal/deep venous thrombosis prophylaxis. Lovenox. Yiching MD ASHWIN Jean-Baptiste/MIKE /[id number]
[2020-05-31] VITALS (21 sets, daily range): BP systolic 116–172; BP diastolic 49–73
[2020-05-31] MEDS: ROCURONIUM BROMIDE 1,250 MG in SODIUM CHLORIDE 0.9% 250ML 125 ML IV PRN (00:24)
[2020-05-31] MEDS: MIDAZOLAM HCL 5MG/ML 10ML VIAL 100 ML IV PRN ×5 (01:00→21:09)
[2020-05-31] MEDS: FUROSEMIDE INJ 100 MG in SODIUM CHLORIDE 0.9% 100 ML 90 ML IV SCH (01:05)
[2020-05-31] MEDS: FENTANYL 2000MCG/NS 250 250 ML IV PRN ×3 (01:06→18:14)
[2020-05-31 05:38] LABS: BASOPHILS # (AUTO) 0.1 (0.0-0.1); BASOPHILS % 0.3 % (0.0-1.0); EOSINOPHILS % 5.6 % (0.0-6.0); HEMATOCRIT 30.4 % (38.2-49.6); HEMOGLOBIN 9.6 g/dL (14.0-18.0); LYMPHOCYTES # (AUTO) 1.5 (1.0-3.2); LYMPHOCYTES % 8.9 % (18.0-39.1); MEAN CORPUSCULAR HEMOGLOBIN 29.6 pg (28-32); MEAN CORPUSCULAR HGB CONC 31.6 g/dL (31-35); MEAN CORPUSCULAR VOLUME 93.8 fL (81-99); MONOCYTES # (AUTO) 1.3 (0.2-0.8); MONOCYTES % 7.7 % (4.4-11.3); NEUTROPHILS # (AUTO) 12.6 (2.1-6.9); NEUTROPHILS % 74.7 % (38.7-80.0); PLATELET COUNT 244 x10e3/uL (140-360); RED BLOOD COUNT 3.24 x10e6/uL (4.3-5.7); RED CELL DISTRIBUTION WIDTH 14.6 % (11.7-14.4)
[2020-05-31 05:49] LABS: ALANINE AMINOTRANSFERASE 22 IU/L (0-55); ALBUMIN 2.9 g/dL (3.5-5.0); ALBUMIN/GLOBULIN RATIO 0.7 (0.8-2.0); ALKALINE PHOSPHATASE 55 IU/L (40-150); ANION GAP 9.5 mmol/L (8-16); BLOOD UREA NITROGEN 23 mg/dL (7-26); BUN/CREATININE RATIO 35 (6-25); CALCIUM 9.8 mg/dL (8.4-10.2); CARBON DIOXIDE 38 mmol/L (22-29); CHLORIDE 91 mmol/L (98-107); CREATININE, SERUM 0.66 mg/dL (0.72-1.25); EST GLOMERULAR FILTRATION RATE > 60 ML/MIN (60-); GLUCOSE 106 mg/dL (74-118); MAGNESIUM 1.8 MG/DL (1.3-2.1); POTASSIUM 3.5 mmol/L (3.5-5.1); SODIUM 135 mmol/L (136-145)
[2020-05-31 06:34] LABS: ABG PCO2 63 mmHg (35-45); ABG PH 7.39 (7.35-7.45); ABG PO2 79 mmHg (80-105)
[2020-05-31 06:35] LABS: ABG HCO3 38 mmol/L (22-26); ABG TCO2 40
[2020-05-31] MEDS: ENOXAPARIN SOD INJ 40 MG/0.4 ML SYR SC SCH ×2 (08:58→19:53)
[2020-05-31] MEDS: ACETAZOLAMIDE SODIUM 500 MG/VIAL IV SCH ×2 (08:58→19:52)
[2020-05-31] MEDS: LACTULOSE SYRUP 20 GM/30 ML UDC PO PRN (08:58)
[2020-05-31] MEDS: POTASSIUM CHLORIDE 20MEQ/15ML UDC NG SCH (08:58)
[2020-05-31] MEDS: BALSAM PERU/CASTOR OIL 60 GM OINT...G. TP SCH (08:58)
[2020-05-31] MEDS: FAMOTIDINE 20 MG/2 ML VIAL IV SCH ×2 (08:58→17:23)
--- NOTE | 2020-05-31 09:30 | NUR ---
Concrete Carpenter called pt's to follow up and offer emotional support. Pt's states she is "doing pretty good" and that she has two sisters who are helpful. Concrete Carpenter facilitated storytelling and provided prayer. JACQUE Freitas Spiritual Care Department O: [phone]
--- NOTE | 2020-05-31 12:44 | Progress Note ---
DATE: SUBJECTIVE: The patient is still in the prone position. He is currently on a pressure control mode of ventilation. His PEEP is set at 10 and his pressure above PEEP is set at 30. His tidal volumes are about 380 mL to 390 mL. His FiO2 is set at 100%. PHYSICAL EXAMINATION: VITAL SIGNS: T-max is 99.7. HEENT: Shows no facial swelling. There is some decubitus breakdown from the ET tube agrawal. There is an oral endotracheal tube. There is a PICC line. There is an arterial line. CARDIAC: Reveals regular rate and rhythm. Normal S1, S2. LUNGS: Auscultation of lungs reveals rhonchorous breath sounds bilaterally. There is no wheezing. ABDOMEN: Soft, nontender. There is no rebound or guarding. EXTREMITIES: Shows no leg edema or calf tenderness. There is no cyanosis or clubbing. SKIN: Shows no rashes. NEUROLOGICAL: Shows no focal abnormalities. LABORATORY DATA: White blood cell count is 16.9, hemoglobin is 9.6. The platelet count is 244. BUN to creatinine ratio is normal. The other electrolytes within normal limits. Albumin is 2.9. IMPRESSION: 1. Acute respiratory failure. 2. Viral pneumonia and COVID-19 infection. 3. Diabetes. 4. Anemia, secondary to chronic blood loss. 5. Hypertension. PLAN: 1. Continue pressure control. Monitor ABGs. 2. Place the patient back to the supine position. 3. Continue Lasix drip along with Diamox. 4. Continue enteral feedings and free water. 5. Continue Versed, fentanyl, and rocuronium. 6. Complete antibiotics. 7. Continue Lovenox. Greater than 35 minutes in direct critical care time. Manuel Quigley MD [facility]/MODL /[id number]
--- NOTE | 2020-05-31 12:44 | Diagnostic Imaging Report ---
EXAMINATION: CHEST SINGLE (PORTABLE) INDICATION: Respiratory failure COMPARISON: Chest radiograph 05/26/2020 FINDINGS: LINES/TUBES:Endotracheal tube terminates approximately 4 cm above the cadence. Enteric tube projects below the diaphragm and terminates in the distal stomach. Left PICC line appears to have been intervally retracted, now likely terminating in the left innominate vein. LUNGS:The lung volumes are low. Increasing bilateral multifocal interstitial and airspace opacities. PLEURA:No pleural effusion or pneumothorax. MEDIASTINUM:The cardiomediastinal silhouette appears unchanged in size and shape. BONES/SOFT TISSUES:No acute osseous injury. ABDOMEN:No free air under the diaphragm. IMPRESSION: Increasing bilateral multifocal airspace and interstitial opacities. Signed by: Nicki Durham MD on 05/31/2020 12:41 PM
[2020-05-31] MEDS ORDERED: POTASSIUM CHLORIDE 20MEQ/100ML 100 ML IV ONE (14:00)
--- NOTE | 2020-05-31 15:29 | NUR ---
he patient is still in the prone position. He is currently on a pressure control mode of ventilation. His PEEP is set at 10 and his pressure above PEEP is set at 30. His tidal volumes are about 380 mL to 390 mL. His FiO2 is set at 100%. PHYSICAL EXAMINATION: VITAL SIGNS: T-max is 99.7. HEENT: Shows no facial swelling. There is some decubitus breakdown from the ET tube agrawal. There is an oral endotracheal tube. There is a PICC line. There is an arterial line. CARDIAC: Reveals regular rate and rhythm. Normal S1, S2. LUNGS: Auscultation of lungs reveals rhonchorous breath sounds bilaterally. There is no wheezing. ABDOMEN: Soft, nontender. There is no rebound or guarding. EXTREMITIES: Shows no leg edema or calf tenderness. There is no cyanosis or clubbing. SKIN: Shows no rashes. NEUROLOGICAL: Shows no focal abnormalities. LABORATORY DATA: White blood cell count is 16.9, hemoglobin is 9.6. The platelet count is 244. BUN to creatinine ratio is normal. The other electrolytes within normal limits. Albumin is 2.9.
--- NOTE | 2020-05-31 16:44 | Progress Note ---
DATE: 05/31/2020 Renal Progress Note SUBJECTIVE: Events over the past 24 hours have been noted. The patient remains intubated. He is on a ventilator. He is in a regular position in a supine position. He is sedated and remains on the ventilator. PHYSICAL EXAMINATION: VITAL SIGNS: Blood pressure is 141/59, pulse 85, respiration 36. In the last 24 hours, his intakes and outputs; his intake has been 2111 mL, his output has been 7625 mL with a net fluid balance of -5.5 L. GENERAL: The patient's total anasarca edema seems to have been decreased from yesterday. HEENT: The patient is intubated. He is on a ventilator. CARDIOVASCULAR: Regular rate and rhythm. LUNGS: Decreased breath sounds and crackles bilaterally. ABDOMEN: Decreased bowel sounds. EXTREMITIES: The patient still has some edema of the feet, but it is much less. LABORATORY RESULTS: Sodium 135, potassium 3.8, chloride 91, bicarb 38, BUN and creatinine 23 and 0.66, hematocrit is 30.4. IMPRESSION: 1. Edema total body water expansion. 2. Contraction metabolic acidosis. 3. Hypokalemia. 4. COVID pneumonia. 5. Acute respiratory failure. PLAN: The patient is on Lasix drip at 5 mg an hour. I think we can continue the Lasix maybe for about another 24 hours, but I would probably stop it after another 24 hours. He is on Diamox and we will continue this for the metabolic contraction alkalosis and hydrochlorothiazide has been discontinued and his potassium has been replaced. I think tomorrow, we will discontinue the Lasix drip and see how the patient does. Ather MD LAWRENCE Singh/MIKE /[id number]
--- NOTE | 2020-05-31 17:04 | Progress Note ---
DATE: SUBJECTIVE: Mr. Bob remains in intensive care unit, day #28. Intubated and sedated. The patient's vent setting reviewed. Laboratory data reviewed. Discussed with medical team. PHYSICAL EXAMINATION: GENERAL: Currently intubated, sedated. VITAL SIGNS: Stable. HEENT: Not icteric. NECK: Supple. CHEST: Crackles bilateral. HEART: S1 and S2. ABDOMEN: Soft. IMPRESSION: COVID-19, respiratory failure. Discussed with medical team. Continue supportive care as ordered. We will follow. MD JOSE Garay/MODSteven /[id number]
--- NOTE | 2020-05-31 18:05 | Progress Note ---
DATE: 05/31/2020 Cardiology Progress Note SUBJECTIVE: Intubated and sedated. OBJECTIVE: VITAL SIGNS: Temperature 100, heart rate 84, respiratory rate 36, blood pressure 131/53, and O2 saturation 96% on vent support. GENERAL: Remains intubated, sedated. NECK: Supple. CHEST: With rales. Decreased breath sounds. CARDIOVASCULAR: Regular rate and rhythm. Normal S1 and S2. EXTREMITIES: No edema. CARDIOVASCULAR MEDICATIONS: Reviewed. Lovenox 40 q.12 hours and hydralazine p.r.n. STUDIES: Reviewed. White blood cells 16, hemoglobin 9.6, and platelets 244. Creatinine 0.6, potassium 3.5, and sodium 135. ASSESSMENT AND PLAN: COVID-19 infection, community-acquired pneumonia, acute respiratory failure, hypertension, gqwjb-du-zhiznre diastolic heart failure, and volume overload. RECOMMENDATIONS: Continue diuretics. Continue rest of cardiovascular medications. MD CHRISTINE Bal/MIKE /[id number]
[2020-05-31] MEDS: LATANOPROST(OPTH) 2.5 ML BTL OP SCH (19:53)
[2020-05-31] MEDS: ACETAMINOPHEN 325 MG TAB PO PRN (19:53)
--- NOTE | 2020-05-31 22:57 | Progress Note ---
DATE: 05/31/2020 SUBJECTIVE: Intubated, sedated, cannot give any history. OBJECTIVE: VITAL SIGNS: Temperature 101.1, pulse 94, respiratory rate 36, and blood pressure 172/63. GENERAL: Intubated and sedated. SKIN: No rash. HEENT: Endotracheal tube in place. LUNGS: Decreased breath sounds. HEART: Regular rate and rhythm. Normal S1 and S2. GI: Abdomen is soft and nondistended. NEUROLOGIC: Sedated. PSYCHIATRIC: Sedated. LABORATORY DATA: Laboratory [place], white count 17, hemoglobin 10, and platelet count 244. Creatinine 0.7. ASSESSMENT AND PLAN: 1. Acute respiratory failure due to COVID-19 pneumonia. We will continue Lasix drip and vent management per bookkeeping assistant. The patient is still febrile. Plan per Infectious Disease specialist. 2. Chronic anemia. His hemoglobin is stable. 3. Gastrointestinal and deep venous thrombosis prophylaxis, Lovenox. MD ASHWIN Chavez/MIKE /[id number]
[2020-06-01] VITALS (25 sets, daily range): BP systolic 92–163; BP diastolic 45–75
[2020-06-01] MEDS: FUROSEMIDE INJ 100 MG in SODIUM CHLORIDE 0.9% 100 ML 90 ML IV SCH ×2 (02:12→21:15)
[2020-06-01] MEDS: FENTANYL 2000MCG/NS 250 250 ML IV PRN ×3 (02:14→21:02)
[2020-06-01 06:12] LABS: BASOPHILS # (AUTO) 0.1 (0.0-0.1); BASOPHILS % 0.3 % (0.0-1.0); EOSINOPHILS # (AUTO) 0.8 (0.0-0.4); EOSINOPHILS % 4.4 % (0.0-6.0); HEMATOCRIT 30.4 % (38.2-49.6); HEMOGLOBIN 9.6 g/dL (14.0-18.0); LYMPHOCYTES # (AUTO) 1.6 (1.0-3.2); LYMPHOCYTES % 9.1 % (18.0-39.1); MEAN CORPUSCULAR HEMOGLOBIN 28.4 pg (28-32); MEAN CORPUSCULAR HGB CONC 31.6 g/dL (31-35); MEAN CORPUSCULAR VOLUME 89.9 fL (81-99); MONOCYTES # (AUTO) 1.5 (0.2-0.8); MONOCYTES % 8.4 % (4.4-11.3); NEUTROPHILS # (AUTO) 12.9 (2.1-6.9); NEUTROPHILS % 74.1 % (38.7-80.0); PLATELET COUNT 261 x10e3/uL (140-360); RED BLOOD COUNT 3.38 x10e6/uL (4.3-5.7); RED CELL DISTRIBUTION WIDTH 14.6 % (11.7-14.4)
[2020-06-01 06:21] LABS: ALANINE AMINOTRANSFERASE 24 IU/L (0-55); ALBUMIN 2.6 g/dL (3.5-5.0); ALBUMIN/GLOBULIN RATIO 0.7 (0.8-2.0); ALKALINE PHOSPHATASE 95 IU/L (40-150); ANION GAP 13.4 mmol/L (8-16); BLOOD UREA NITROGEN 25 mg/dL (7-26); BUN/CREATININE RATIO 38 (6-25); CALCIUM 9.1 mg/dL (8.4-10.2); CARBON DIOXIDE 33 mmol/L (22-29); CHLORIDE 93 mmol/L (98-107); CREATININE, SERUM 0.66 mg/dL (0.72-1.25); EST GLOMERULAR FILTRATION RATE > 60 ML/MIN (60-); GLUCOSE 116 mg/dL (74-118); POTASSIUM 3.4 mmol/L (3.5-5.1); SODIUM 136 mmol/L (136-145)
[2020-06-01] MEDS: MIDAZOLAM HCL 5MG/ML 10ML VIAL 100 ML IV PRN ×2 (06:30→10:34)
[2020-06-01] MEDS ORDERED: POTASSIUM CHLORIDE 20MEQ/100ML 100 ML IV ONE (06:30)
[2020-06-01] MEDS: FAMOTIDINE 20 MG/2 ML VIAL IV SCH ×2 (08:57→17:14)
[2020-06-01] MEDS: BALSAM PERU/CASTOR OIL 60 GM OINT...G. TP SCH (08:57)
[2020-06-01] MEDS: POTASSIUM CHLORIDE 20MEQ/15ML UDC NG SCH (08:57)
[2020-06-01] MEDS: ENOXAPARIN SOD INJ 40 MG/0.4 ML SYR SC SCH ×2 (08:57→21:15)
[2020-06-01 10:16] LABS: ABG HCO3 32 mmol/L (22-26); ABG PCO2 56 mmHg (35-45); ABG PH 7.36 (7.35-7.45); ABG PO2 57 mmHg (80-105); ABG TCO2 33
--- NOTE | 2020-06-01 12:10 | Progress Note ---
DATE: 06/01/2020 Cardiology Progress Note SUBJECTIVE: Intubated and sedated. OBJECTIVE: VITAL SIGNS: Temperature 99.2, heart rate 89, blood pressure 120/45, respiratory rate 36, O2 saturation 92%. GENERAL: Intubated and sedated. NECK: Supple. CHEST: With rales and decreased breath sounds. CARDIOVASCULAR: Regular rate and rhythm. Normal S1 and S2. ABDOMEN: Soft. Bowel sounds positive. EXTREMITIES: Trace edema. CARDIOVASCULAR MEDICATIONS: Reviewed. 1. Furosemide 5 mg/hour IV. 2. Hydralazine 10 q.4 hours. 3. Potassium chloride 40 mEq daily. 4. Lovenox 40 mg q.12 hours. STUDIES: Reviewed. Sodium 136, potassium 3.4, chloride 93, bicarbonate 33, BUN 25, creatinine 0.66, glucose 116. White blood cells 17.5, hemoglobin 9.6, platelets 261. INR 1.4. ASSESSMENT: A 65-year-old man, presents with anemia, hypertension, coronavirus disease-2019 infection, community-acquired pneumonia, acute respiratory failure, [id number] diastolic heart failure. RECOMMENDATIONS: Continue current cardiovascular medications including diuretics. Continue to wean vent, support as tolerated. MD CHRISTINE Bal/MIKE /[id number]
[2020-06-01] MEDS ORDERED: NOREPINEPHRINE INJ 4MG/4ML 16 MG in DEXTROSE 5% 250ML 250 ML IV PRN (13:00)
[2020-06-01] MEDS: ALBUMIN 25% 12.5GM 0.25 GM/ML BTL IV SCH ×2 (13:23→17:14)
--- NOTE | 2020-06-01 13:27 | NUR ---
ntubated and sedated. OBJECTIVE: VITAL SIGNS: Temperature 100, heart rate 84, respiratory rate 36, blood pressure 131/53, and O2 saturation 96% on vent support. GENERAL: Remains intubated, sedated. NECK: Supple. CHEST: With rales. Decreased breath sounds. CARDIOVASCULAR: Regular rate and rhythm. Normal S1 and S2. EXTREMITIES: No edema. CARDIOVASCULAR MEDICATIONS: Reviewed. Lovenox 40 q.12 hours and hydralazine p.r.n. STUDIES: Reviewed. White blood cells 16, hemoglobin 9.6, and platelets 244. Creatinine 0.6, potassium 3.5, and sodium 135. ASSESSMENT AND PLAN: COVID-19 infection, community-acquired pneumonia, acute respiratory failure, hypertension, [id number] diastolic heart failure, and volume overload. RECOMMENDATIONS: continue with supportive care see orders
--- NOTE | 2020-06-01 13:29 | Progress Note ---
DATE: SUBJECTIVE: The patient is currently afebrile. He remains on pressure control ventilation at a rate of 30 with a PEEP of 10 and pressure above PEEP of 30. His FiO2 is set at 100% and he is saturating in the mid 90s. He is supine at this time. He remains on rocuronium as well as Versed and fentanyl. PHYSICAL EXAMINATION: VITAL SIGNS: Blood pressure is 92/45 and the pulse is 86. The saturation is 93%. He is on the above-mentioned ventilator settings. HEENT: Some facial edema. He has an oral endotracheal tube. CARDIAC: Regular rate and rhythm with normal S1 and S2. LUNGS: Auscultation of lungs reveals rhonchorous breath sounds bilaterally. There is no wheezing. The patient has crackles in both lung vazquez. ABDOMEN: Soft, nontender. There is no rebound or guarding. EXTREMITIES: 1 to 2+ leg edema. LABORATORY DATA: White blood cell count is 17.4 and hemoglobin is 9.6. The platelet count is 261,000. The BUN to creatinine ratio is normal. The potassium is 3.4. The other electrolytes are within normal limits. Albumin is 2.6. Chest x-ray shows bilateral infiltrates. IMPRESSION: 1. Acute respiratory failure. 2. Viral pneumonia and COVID-19 infection. 3. Diabetes. 4. Anemia secondary to chronic blood loss. 5. Hypertension. PLAN: 1. Continue Lasix drip and use intermittent Diamox. 2. Continue scheduled albumin. 3. Continue pressure control and monitor ABGs. 4. Continue Versed, fentanyl and rocuronium. 5. Continue Lovenox. 6. Complete antibiotics. Greater than 35 minutes in direct critical care time. Manuel Quigley MD [facility]/MODL /[id number]
[2020-06-01] MEDS: LATANOPROST(OPTH) 2.5 ML BTL OP SCH (21:00)
[2020-06-01] MEDS: ACETAZOLAMIDE SODIUM 500 MG/VIAL IV SCH (21:15)
--- NOTE | 2020-06-01 22:01 | Progress Note ---
DATE: 06/01/2020 SUBJECTIVE: Intubated, sedated, cannot give history. OBJECTIVE: VITAL SIGNS: Temperature 98.8, pulse 78, respiratory rate 36, blood pressure 114/48. GENERAL: Intubated, sedated. SKIN: No rash. HEENT: Endotracheal tube in place. LUNGS: Decreased breath sounds. HEART: Regular rate and rhythm. Normal S1, S2. GI: Abdomen is soft, nondistended. NEUROLOGIC: Sedated. PSYCHIATRIC: Sedated. LABORATORY DATA: Laboratory [place], white count 17, hemoglobin 10, platelet count 261, creatinine 0.7. ASSESSMENT/PLAN: 1. Acute respiratory failure due to coronavirus disease-2019 pneumonia. We will continue Lasix drip and the vent management per manager strategy. His fever seems to be a little better. The patient has completed his antibiotics per Infectious Disease specialist. The patient currently is on a pressor. 2. Morbid obesity. 3. Chronic anemia. His hemoglobin is stable. 4. Gastrointestinal and deep vein thrombosis prophylaxes, Lovenox. MD ASHWIN Chavez/MIKE /[id number]
[2020-06-01 22:04] LABS: ABG HCO3 32 mmol/L (22-26); ABG PCO2 55 mmHg (35-45); ABG PH 7.36 (7.35-7.45); ABG PO2 71 mmHg (80-105); ABG TCO2 33
[2020-06-02] VITALS (24 sets, daily range): BP systolic 117–172; BP diastolic 42–69
[2020-06-02] MEDS: MIDAZOLAM HCL 5MG/ML 10ML VIAL 100 ML IV PRN ×4 (00:48→17:52)
[2020-06-02] MEDS: ALBUMIN 25% 12.5GM 0.25 GM/ML BTL IV SCH (00:48)
[2020-06-02 06:08] LABS: BASOPHILS # (AUTO) 0.1 (0.0-0.1); BASOPHILS % 0.4 % (0.0-1.0); EOSINOPHILS # (AUTO) 0.7 (0.0-0.4); EOSINOPHILS % 5.2 % (0.0-6.0); HEMATOCRIT 26.9 % (38.2-49.6); HEMOGLOBIN 8.5 g/dL (14.0-18.0); LYMPHOCYTES # (AUTO) 1.2 (1.0-3.2); LYMPHOCYTES % 8.7 % (18.0-39.1); MEAN CORPUSCULAR HEMOGLOBIN 29.5 pg (28-32); MEAN CORPUSCULAR HGB CONC 31.6 g/dL (31-35); MEAN CORPUSCULAR VOLUME 93.4 fL (81-99); MONOCYTES # (AUTO) 1.5 (0.2-0.8); MONOCYTES % 10.3 % (4.4-11.3); NEUTROPHILS # (AUTO) 10.1 (2.1-6.9); NEUTROPHILS % 71.7 % (38.7-80.0); PLATELET COUNT 232 x10e3/uL (140-360); RED BLOOD COUNT 2.88 x10e6/uL (4.3-5.7); RED CELL DISTRIBUTION WIDTH 14.7 % (11.7-14.4)
[2020-06-02 06:33] LABS: ALANINE AMINOTRANSFERASE 23 IU/L (0-55); ALBUMIN 3.4 g/dL (3.5-5.0); ALBUMIN/GLOBULIN RATIO 0.9 (0.8-2.0); ALKALINE PHOSPHATASE 69 IU/L (40-150); ANION GAP 14.5 mmol/L (8-16); BLOOD UREA NITROGEN 24 mg/dL (7-26); BUN/CREATININE RATIO 36 (6-25); CALCIUM 9.1 mg/dL (8.4-10.2); CARBON DIOXIDE 32 mmol/L (22-29); CHLORIDE 97 mmol/L (98-107); CREATININE, SERUM 0.66 mg/dL (0.72-1.25); EST GLOMERULAR FILTRATION RATE > 60 ML/MIN (60-); GLUCOSE 116 mg/dL (74-118); POTASSIUM 3.5 mmol/L (3.5-5.1); SODIUM 140 mmol/L (136-145)
[2020-06-02 06:51] LABS: MAGNESIUM 1.8 MG/DL (1.3-2.1); PHOSPHORUS 3.9 MG/DL (2.3-4.7)
[2020-06-02] MEDS: BALSAM PERU/CASTOR OIL 60 GM OINT...G. TP SCH (09:07)
[2020-06-02] MEDS: ENOXAPARIN SOD INJ 40 MG/0.4 ML SYR SC SCH ×2 (09:07→21:00)
[2020-06-02] MEDS: FAMOTIDINE 20 MG/2 ML VIAL IV SCH ×2 (09:07→17:00)
[2020-06-02] MEDS: ACETAZOLAMIDE SODIUM 500 MG/VIAL IV SCH (09:07)
[2020-06-02] MEDS: POTASSIUM CHLORIDE 20MEQ/15ML UDC NG SCH (09:08)
[2020-06-02 09:23] LABS: ABG PCO2 66 mmHg (35-45); ABG PH 7.31 (7.35-7.45)
[2020-06-02 09:24] LABS: ABG HCO3 33 mmol/L (22-26); ABG PO2 69 mmHg (80-105); ABG TCO2 35
--- NOTE | 2020-06-02 11:10 | Progress Note ---
DATE: SUBJECTIVE: The patient is currently on rocuronium as well as Versed and fentanyl. Currently on a PRVC mode of ventilation, at a rate of 36 with a tidal volume of 400. His PEEP is set at 12. He is on 100%. He is afebrile. He is currently on enteral feedings. He is receiving low-dose Levophed as well as a Lasix drip. PHYSICAL EXAMINATION: VITAL SIGNS: The blood pressure is 124/44, saturation is 92%. The pulse is 90. HEENT: Shows no facial swelling or erythema. The patient has an oral endotracheal tube. There is a right IJ line. There is a PICC line in place as well as an arterial line. CARDIAC: Reveals a regular rhythm. Normal S1, S2. LUNGS: Auscultation of lungs reveals crackles at the bases. There is no wheezing. ABDOMEN: Soft, nontender. There is no rebound or guarding. EXTREMITIES: Shows no leg edema or calf tenderness. There is no cyanosis or clubbing. SKIN: Shows no rashes. NEUROLOGICAL: Shows no focal abnormalities. LABORATORY DATA: The BUN to creatinine ratio is 24 to 0.66 and the other electrolytes are within normal limits. The albumin is 3.4. The white blood cell count is 14.1, hemoglobin is 8.5. The platelet count is 232. The blood gas this morning is 7.31, 66, 69, and 91%. IMPRESSION: 1. Acute respiratory failure. 2. Viral pneumonia and COVID-19 infection. 3. Diabetes. 4. Anemia, secondary to chronic blood loss. 5. Hypertension. PLAN: 1. Continue Lasix drip with intermittent Diamox. 2. Place the patient in prone position. 3. Continue Versed, fentanyl, and rocuronium. 4. Continue to monitor ABGs. 5. Continue Lovenox. 6. Repeat chest x-ray now. 7. Case was discussed with daughter, nursing staff, Respiratory, Nephrology, Internal Medicine, and Infectious Disease. Greater than 35 minutes in direct critical care time. Manuel Quigley MD LM/SHIRLEYL /[id number]
--- NOTE | 2020-06-02 11:12 | Diagnostic Imaging Report ---
EXAM: CHEST SINGLE (PORTABLE) DATE: 06/02/2020 10:20 AM INDICATION: Respiratory failure COMPARISON: 05/31/2020 FINDINGS: Endotracheal tube identified terminating approximately 5.5 cm above the cadence. Left-sided PICC line identified in stable position. Enteric tube noted coursing below the diaphragm. The trachea is midline. Again identified are grossly stable appearing interstitial and airspace opacities throughout the lungs bilaterally. There is no evidence for pneumothorax or significant pleural effusion. The cardiomediastinal silhouette is stable in appearance. No acute osseous abnormalities identified. IMPRESSION: No significant interval change from 05/31/2020. Grossly stable appearing interstitial and airspace opacities identified throughout the lungs bilaterally. Signed by: Dr. Josemanuel Marin MD on 06/02/2020 11:09 AM
[2020-06-02] MEDS: FENTANYL 2000MCG/NS 250 250 ML IV PRN ×2 (12:15→20:57)
--- NOTE | 2020-06-02 14:01 | NUR ---
he patient is currently on rocuronium as well as Versed and fentanyl. Currently on a PRVC mode of ventilation, at a rate of 36 with a tidal volume of 400. His PEEP is set at 12. He is on 100%. He is afebrile. He is currently on enteral feedings. He is receiving low-dose Levophed as well as a Lasix drip. PHYSICAL EXAMINATION: VITAL SIGNS: The blood pressure is 124/44, saturation is 92%. The pulse is 90. HEENT: Shows no facial swelling or erythema. The patient has an oral endotracheal tube. There is a right IJ line. There is a PICC line in place as well as an arterial line. CARDIAC: Reveals a regular rhythm. Normal S1, S2. LUNGS: Auscultation of lungs reveals crackles at the bases. There is no wheezing. ABDOMEN: Soft, nontender. There is no rebound or guarding. EXTREMITIES: Shows no leg edema or calf tenderness. There is no cyanosis or clubbing. SKIN: Shows no rashes. NEUROLOGICAL: Shows no focal abnormalities. LABORATORY DATA: The BUN to creatinine ratio is 24 to 0.66 and the other electrolytes are within normal limits. The albumin is 3.4. The white blood cell count is 14.1, hemoglobin is 8.5. The platelet count is 232. The blood gas this morning is 7.31, 66, 69, and 91%.
--- NOTE | 2020-06-02 16:56 | NUR ---
Nutrition Intervention Note RD Recommendation(s) for Physician: -Recommend modifying tube feeding to Vital AF 1.2 @ goal rate of 55 mL/hr (provides 1584 kcal, 99 g protein). Water/fluid management per MD Plan of Care: RD following, monitoring for tolerance and adequacy, tube feed recommendation Nutrition reason for involvement: follow up RD Assessment 06/02: Follow up. Chart reviewed. Pt remains intubated and sedated. Pt is receiving Vital HP @ 30 mL/hr at this time - not meeting nutritional needs. Current recommendations remain appropriate. Will continue to monitor. 05/29: Follow up. Chart reviewed. Pt remains intubated and sedated. MD note indicates that pt remains in the prone position. Pt is receiving Vital HP @ 20 mL/hr at this time. Current recommendations remain appropriate. Will continue to monitor. 05/24: Follow up. Pt remains intubated and sedated, requiring to be proned- no paralytic currently. Vital HP infusing at goal rate, providing >75% of estimated needs. Chart reviewed. Current TF rec's remain appropriate. Will continue to monitor. 05/22: Follow up. Pt remains intubated, paralyzed, and sedated. TF documented as Glucerna 1.2 at 30 ml/hr currently, not meeting needs. Pt requiring proning at times. Pt with chest tubes to output. Current TF rec's remain appropriate. Chart reviewed. Will continue to monitor. 05/17: Follow up. Chart reviewed. Pt remains intubated. RN reports that pts tube feeding is at 10 mL/hr at this time and pt is in the prone position. Current recommendations remain appropriate. Will continue to monitor. 05/12: Pt was intubated yesterday and tube feeding was ordered. It is recorded that pt consumed 25% of breakfast on 05/10 and was previously consuming 50-100% of meals. Recommendations provided. Will continue to monitor. 05/09: 65 YOM admitted for hypoxia and pneumonia due to COVID-19. Pt assessed today for LOS. Attempted to call pt's room x 2, no answer- unable to obtain hx at this time. No wt loss or poor intake indicated at admit per MD notes. Pt with 50-100% intake since admit. Pt currently on Vapotherm per current respiratory status. Labs and meds reviewed. LBM 05/08, skin intact. Chart reviewed. Will continue to monitor. Principal Problems/Diagnoses: hypoxia, pneumonia due to COVID-19 PMH: HTN, HLD GI: large, round, soft abdomen, last recorded BM 05/22 Skin: stage 2 pressure ulcer/suspected DTI left ear, stage 2 pressure ulcer bilateral cheek, stage 2 pressure ulcer lower urethral meatus Labs: 06/02: Na 140, K 3.5, BUN 24, Cr 0.66, Glu 116 05/29: Na 141, K 3.9, BUN 24, Cr 0.66, Glu 87, Ca 9.5 05/24: Na 147, K 3, BUN 27, Cr 0.61, Gluc 100, POC Gluc 123-126, Ca 6.3, Mg 1.5 05/22: Na 143, K 4.5, BUN 28, Cr 0.77, Gluc 122, POC Gluc 122-136 (05/17/20) Na 141, K 4.2, BUN 18, Cr 0.61, Glu 87, Ca 8.7 (05/12/20) Na 141, K 5.4, BUN 33, Cr 0.76, Glu 118, Ca 7.9 Meds: fentanyl, pepcid, furosemide, lactulose, rocuronium, norepinephrine Ht: 66 inches Wt: 221 lbs (06/02) 246 lbs (05/28) 218 lbs (05/09) BMI: 35.2 using weight of 218 lbs IBW: 142 lbs Malnutrition Evaluation (05/09/20) The patient does not meet criteria for a specified degree of malnutrition at this time. Will re-evaluate at follow-up as appropriate. Unable to assess due to current isolation precautions. Nutrition Prescription (Diet Order): Vital HP at 55 ml/hr (1320 kcal and 105 gm protein) infusing at 30 mL/hr (provides 720 kcal, 63 g protein) Estimated Nutritional Needs: 9678-1886 calories/day (22-25 kcal/kg IBW) 97-129 g protein/day (1.5-2 g pro/kg IBW) Diet Adequacy: Not meeting calorie needs, Not meeting protein needs Tolerance: tolerating TF Diet Education Needs Assessment: Diet education is not indicated, pt is intubated Nutrition Care Level: high pt not meeting nutritional needs Nutrition Diagnosis: Inadequate oral intake related to acute respiratory failure/mechanical ventilation as evidenced by requiring enteral nutrition. Goal: Patient will meet 75-100% of estimated needs by follow up Progress: goal not met at current tube feed rate Interventions: - Composition, Rate, Route, Recommended Modifications Monitoring/Evaluation: -Total energy intake, Total protein intake, Formula/Solution, Weight change Signed: Ruth Kern RD, LD
[2020-06-02] MEDS: FUROSEMIDE INJ 100 MG in SODIUM CHLORIDE 0.9% 100 ML 90 ML IV SCH ×2 (17:30→17:53)
--- NOTE | 2020-06-02 18:32 | Progress Note ---
DATE: SUBJECTIVE: Mr. Bob remains extremely ill. Today, I called the family, his daughter . She is aware how poorly he has been doing. Prognosis is extremely guarded and she fully understand. longer has active viral infection, but we are dealing with ARDS . PHYSICAL EXAMINATION: GENERAL: The patient who is currently on 100%. HEENT: Normocephalic. CHEST: Few crackles. HEART: S1, S2. ABDOMEN: Soft. IMPRESSION: Respiratory failure, coronavirus disease-2019. He is currently at risk for infection. His fever came down. We will continue with supportive care. The daughter understands, she would like to give us few days and then discuss DNR, maybe comfort care if there is no improvement in next few days. MD JOSE Garay/MIKE /[id number]
--- NOTE | 2020-06-02 20:30 | NUR ---
Dr. Quigley was called concerning pt's position. Pt was proned at 1030 on dayshift. There were no remarks in notes or in handoff concerning placing pt supined overnight. ABG resulted 7.35(7.31)/60.2(66)/86(69)/33.5(33)---all results are demonstrate improvement Dr. Quigley states no changes to vent and to keep pt proned on nightshift. Head and arms will be repositioned Q4HRS to prevent further DTIs.
[2020-06-02] MEDS: LATANOPROST(OPTH) 2.5 ML BTL OP SCH (21:00)
--- NOTE | 2020-06-02 22:08 | Progress Note ---
DATE: 06/02/2020 SUBJECTIVE: Intubated and sedated. Cannot give history. OBJECTIVE: VITAL SIGNS: Temperature 98.9, pulse 82, respiratory rate 36, and blood pressure 119/50. GENERAL: Sedated and intubated. SKIN: No rash. HEENT: Endotracheal tube in place. LUNGS: Decreased breath sounds. HEART: Regular rate and rhythm. Normal S1 and S2. GI: Abdomen is soft and nondistended. NEUROLOGIC: Sedated. PSYCHIATRIC: Sedated. LABORATORY DATA: White count 14, hemoglobin 9, and platelet count 232. Creatinine 0.7. ASSESSMENT AND PLAN: 1. Acute respiratory failure due to COVID-19 pneumonia. The patient is off Levophed. We will continue Lasix drip and vent management per transcription coordinator. He has completed his antibiotics per Infectious Disease specialist. 2. Morbid obesity. 3. Chronic anemia, relatively stable. 4. Gastrointestinal and deep venous thrombosis prophylaxis. Lovenox. MD ASHWIN Chavez/MIKE /[id number]
[2020-06-02 22:23] LABS: ABG HCO3 34 mmol/L (22-26); ABG PCO2 60 mmHg (35-45); ABG PH 7.35 (7.35-7.45); ABG PO2 86 mmHg (80-105); ABG TCO2 35
[2020-06-03] VITALS (24 sets, daily range): BP systolic 106–171; BP diastolic 44–82
[2020-06-03] MEDS: MIDAZOLAM HCL 5MG/ML 10ML VIAL 100 ML IV PRN ×3 (01:22→14:57)
--- NOTE | 2020-06-03 01:23 | Progress Note ---
DATE: 06/02/2020 Cardiology Progress Note SUBJECTIVE: Angus remains intubated and sedated. OBJECTIVE: VITAL SIGNS: Temperature 98.9, heart rate 84, blood pressure 119/51, respiratory rate 36, O2 saturation 97%. Intubated, sedated. FiO2 95%, PEEP of 10. GENERAL: Intubated and sedated. NECK: Supple. CHEST: With rales and decreased breath sounds. CARDIOVASCULAR: Regular rate and rhythm. Normal S1, S2. ABDOMEN: Soft. Bowel sounds positive. EXTREMITIES: 1+ edema. Normal 10. CARDIOVASCULAR MEDICATIONS: Reviewed, potassium chloride 40 mEq daily, hydralazine 10 mg q.4 hours, furosemide 5 mg per hour, Levophed currently off, Lovenox 40 q.12 hours. LABORATORY DATA: Studies reviewed. Sodium 140, potassium 3.5, chloride 97, bicarbonate 32, BUN 24, creatinine 0.6, glucose 116. White blood cells 14, hemoglobin 8.5, platelets 232. PT 18.7, PTT 38.9, INR 1.46. AST 36, ALT 23, alkaline phosphatase 69, total bilirubin 0.9. ASSESSMENT AND PLAN: 1. A 65-year-old man presents with anemia, hypertension, COVID-19, community-acquired pneumonia, acute respiratory failure, acute on chronic diastolic heart failure, hypertension. Recommend continue diuresis. 2. Continue current antihypertensive strategy as needed hydralazine. 3. Continue Lovenox for thromboembolic risk prevention. 4. Monitor H and H. Mario Harris MD [facility]/MODL /[id number]
[2020-06-03] MEDS: FENTANYL 2000MCG/NS 250 250 ML IV PRN ×3 (04:10→19:30)
[2020-06-03 05:19] LABS: BASOPHILS # (AUTO) 0.1 (0.0-0.1); BASOPHILS % 0.3 % (0.0-1.0); EOSINOPHILS # (AUTO) 0.8 (0.0-0.4); EOSINOPHILS % 5.1 % (0.0-6.0); HEMATOCRIT 29.9 % (38.2-49.6); HEMOGLOBIN 9.2 g/dL (14.0-18.0); LYMPHOCYTES # (AUTO) 1.4 (1.0-3.2); LYMPHOCYTES % 8.5 % (18.0-39.1); MEAN CORPUSCULAR HEMOGLOBIN 29.2 pg (28-32); MEAN CORPUSCULAR HGB CONC 30.8 g/dL (31-35); MEAN CORPUSCULAR VOLUME 94.9 fL (81-99); MONOCYTES # (AUTO) 1.5 (0.2-0.8); MONOCYTES % 9.2 % (4.4-11.3); NEUTROPHILS # (AUTO) 11.6 (2.1-6.9); NEUTROPHILS % 72.6 % (38.7-80.0); PLATELET COUNT 255 x10e3/uL (140-360); RED BLOOD COUNT 3.15 x10e6/uL (4.3-5.7); RED CELL DISTRIBUTION WIDTH 14.9 % (11.7-14.4)
[2020-06-03 05:44] LABS: ALANINE AMINOTRANSFERASE 22 IU/L (0-55); ALBUMIN 2.9 g/dL (3.5-5.0); ALBUMIN/GLOBULIN RATIO 0.7 (0.8-2.0); ALKALINE PHOSPHATASE 67 IU/L (40-150); ANION GAP 14.6 mmol/L (8-16); BLOOD UREA NITROGEN 23 mg/dL (7-26); BUN/CREATININE RATIO 36 (6-25); CALCIUM 9.1 mg/dL (8.4-10.2); CARBON DIOXIDE 32 mmol/L (22-29); CHLORIDE 98 mmol/L (98-107); CREATININE, SERUM 0.64 mg/dL (0.72-1.25); EST GLOMERULAR FILTRATION RATE > 60 ML/MIN (60-); GLUCOSE 116 mg/dL (74-118); POTASSIUM 3.6 mmol/L (3.5-5.1); SODIUM 141 mmol/L (136-145)
[2020-06-03] MEDS: ROCURONIUM BROMIDE 1,250 MG in SODIUM CHLORIDE 0.9% 250ML 125 ML IV PRN (08:00)
[2020-06-03] MEDS: FAMOTIDINE 20 MG/2 ML VIAL IV SCH ×2 (09:24→17:01)
[2020-06-03] MEDS: BALSAM PERU/CASTOR OIL 60 GM OINT...G. TP SCH (09:24)
[2020-06-03] MEDS: ENOXAPARIN SOD INJ 40 MG/0.4 ML SYR SC SCH ×2 (09:24→21:33)
[2020-06-03] MEDS: POTASSIUM CHLORIDE 20MEQ/15ML UDC NG SCH (09:29)
[2020-06-03 11:22] LABS: ABG HCO3 34 mmol/L (22-26); ABG PH 7.37 (7.35-7.45); ABG PO2 104 mmHg (80-105); ABG TCO2 35
[2020-06-03 11:23] LABS: ABG PCO2 59 mmHg (35-45)
--- NOTE | 2020-06-03 12:45 | NUR ---
Patient turned to supine position per MD order, tolerated well.
--- NOTE | 2020-06-03 13:34 | Progress Note ---
DATE: Pulmonary Critical Care Progress Note SUBJECTIVE: The patient has been on the prone position overnight. His FiO2 is down to 85%. His saturation is 95%. He is on 10 of PEEP along with a pressure control of 28. His rate is set at 36. PHYSICAL EXAMINATION: VITAL SIGNS: The blood pressure is 147/58 and the saturation is 95%. The pulse is 95. HEENT: Shows no facial swelling or erythema. LYMPHATIC: Shows no submandibular, cervical, or supraclavicular adenopathy. CARDIAC: Reveals regular rate and rhythm with normal S1 and S2. LUNGS: Auscultation of lungs reveals rhonchorous breath sounds bilaterally. There is no wheezing. ABDOMEN: Soft and nontender. There is no rebound or guarding. EXTREMITIES: Shows no leg edema or calf tenderness. There is no cyanosis or clubbing. LABORATORY DATA: BUN to creatinine ratio is 23 to 0.64. Other electrolytes are within normal limits and the albumin is 2.8. The white blood cell count is 15.9 and the hemoglobin is 9.2. The platelet count is 225. Blood gases; 7.37, 59, 104, and 34. RADIOGRAPHIC DATA: Chest x-ray shows bilateral infiltrates. IMPRESSION: 1. Acute respiratory failure. 2. Viral pneumonia and COVID-19 infection. 3. Diabetes. 4. Anemia secondary to chronic blood loss. 5. Hypertension. PLAN: 1. Increase Lasix drip to 10 mg an hour. 2. Give supplemental albumin. 3. Place the patient back in the supine position. 4. Continue Versed, fentanyl, and rocuronium. 5. Continue to monitor ABGs. 6. Continue Lovenox. 7. Repeat chest x-ray. 8. Complete antibiotics. 9. Continue enteral feedings. Greater than 35 minutes in direct critical care time. Manuel Quigley MD [facility]/MODL /[id number]
--- NOTE | 2020-06-03 13:34 | Progress Note ---
DATE: SUBJECTIVE: Mr. Bob remains in intensive care unit, day #31. Prognosis remains very guarded. PHYSICAL EXAMINATION: GENERAL: Currently intubated. VITAL SIGNS: Stable, currently afebrile. HEENT: Not icteric. NECK: Supple. CHEST: Crackles bilateral. HEART: S1 and S2. ABDOMEN: Soft. LABORATORY DATA: His white count is 15.9. Sodium 141, potassium 3.6, and creatinine 0.64. He is currently off antibiotic. PLAN: To continue supportive care. He is afebrile for now. Should he spike fever, we will panculture and start antibiotic. MD JOSE Garay/MODL /[id number]
--- NOTE | 2020-06-03 14:25 | Progress Note ---
DATE: 06/03/2020 Cardiology Progress Note SUBJECTIVE: Mr. Bob remains intubated and sedated. OBJECTIVE: VITAL SIGNS: Temperature 99.6, heart rate 90, respiratory rate 36, blood pressure 124/82, and O2 saturation 96% on vent support. On telemetry, sinus rhythm. Intubated, sedated. NECK: Supple. CHEST: Rales. Decreased breath sounds. CARDIOVASCULAR: Regular rate and rhythm. Normal S1, S2. ABDOMEN: Soft. Bowel sounds positive. EXTREMITIES: Trace edema. CARDIOVASCULAR MEDICATIONS: Reviewed. Lovenox 40 q.12 hours, furosemide 10 every hour, and hydralazine p.r.n. STUDIES: Reviewed. White blood cells 15, hemoglobin 9.2, and platelets 255. Creatinine 0.6, potassium 3.6. ASSESSMENT: A 65-year-old man, presents with, 1. Anemia. 2. Acute on chronic diastolic heart failure. 3. Hypertension. 4. Coronavirus disease-19 infection. 5. Community-acquired pneumonia. 6. Acute respiratory failure. RECOMMENDATIONS: 1. Continue diuretics. 2. Hydralazine as needed. 3. Continue Lovenox. MD CHRISTINE Bal/MIKE /[id number]
[2020-06-03] MEDS: FUROSEMIDE INJ 100 MG in SODIUM CHLORIDE 0.9% 100 ML 90 ML IV SCH (14:56)
--- NOTE | 2020-06-03 15:00 | NUR ---
Dr Quigley made aware of chest x ray results, no new orders received at this time.
--- NOTE | 2020-06-03 15:10 | Diagnostic Imaging Report ---
EXAMINATION: CHEST SINGLE (PORTABLE) INDICATION: Respiratory failure COMPARISON: Multiple prior chest radiograph including most recent on 05/31/2020. FINDINGS: TUBES and LINES: Endotracheal tube which terminates approximately 6 cm above the cadence, left PICC and subdiaphragmatic enteric tube which extends beyond the [id number] are unchanged. LUNGS: No interval changes in multifocal interstitial and airspace opacities. PLEURA: No pleural effusion or pneumothorax. HEART AND MEDIASTINUM: The cardiomediastinal silhouette is unchanged. BONES AND SOFT TISSUES: No acute osseous lesion. There is new subcutaneous emphysema along the right neck extending beyond the [id number]. UPPER ABDOMEN: No free air under the diaphragm. IMPRESSION: 1. New subcutaneous emphysema along the right neck extending beyond the [id number]. 2. No interval changes in radiographic appearance of the lungs. 3. Stable support lines/tubes. Signed by: Jai Marcial MD on 06/03/2020 3:07 PM
--- NOTE | 2020-06-03 15:12 | Diagnostic Imaging Report ---
EXAM: Abdomen Radiograph 1 View(s) INDICATION: Constipation with no bowel movement documented. COMPARISON: None FINDINGS: Enteric tube which terminates likely within the second portion of the duodenum. Vizcarra catheter in place. Nonobstructive bowel gas pattern. Moderate stool burden throughout the colon. No abnormal calcification. Multilevel degenerative changes of the spine. IMPRESSION: Nonobstructive bowel gas pattern. Moderate stool burden throughout the colon can present clinically as constipation. Signed by: Jai Marcial MD on 06/03/2020 3:08 PM
[2020-06-03] MEDS: ALBUMIN 25% 25GM 100ML 0.25 GM/ML BTL IV SCH (17:01)
--- NOTE | 2020-06-03 21:27 | Progress Note ---
DATE: 06/03/2020 CONSULTANTS: 1. Dr. Quigley with product builder. 2. Dr. Robertson with Infectious Disease. 3. Dr. Neumann with Cardiology. 4. Dr. Archer with Renal. SUBJECTIVE: The patient is intubated and sedated. OBJECTIVE: VITAL SIGNS: Temperature 97, pulse is , respirations 36, blood pressure 167/52, and pulse ox 92% on the vent. GENERAL: Calm, intubated and sedated. HEENT: Normocephalic. CARDIOVASCULAR: Regular rate and rhythm. LUNGS: With decreased breath sounds. ABDOMEN: Soft, obese. NEURO: Sedated. MUSCULOSKELETAL: No edema. SKIN: Intact. LABORATORY STUDIES: WBC 15.93, hemoglobin 9.2, and platelet 255. Sodium 141, potassium 3.6, creatinine 0.64, and GFR greater than 60. AST 28, ALT 22. Blood culture as of yesterday, negative. Chest x-ray, no significant change. ASSESSMENT AND PLAN: 1. Acute respiratory failure due to COVID-19. Remains intubated and sedated. Vent management per product builder. Antibiotics per ID. 2. Chronic anemia. Hemoglobin is stable at 9.2 today. 3. Morbid obesity. 4. Gastrointestinal and deep venous thrombosis prophylaxis. PPI and Lovenox. Dictated by MARAH Castro Alicja Rodriguez MD MY/MODL /[id number] Seen and examined. Agree with the findings and plan documented by MARAH Esqueda. MTDD
[2020-06-03] MEDS: LATANOPROST(OPTH) 2.5 ML BTL OP SCH (21:33)
[2020-06-03 22:19] LABS: ABG PCO2 54 mmHg (35-45); ABG PO2 67 mmHg (80-105)
[2020-06-03 22:20] LABS: ABG HCO3 33 mmol/L (22-26); ABG TCO2 93
--- NOTE | 2020-06-03 23:00 | NUR ---
Received report from [facility] nurse at 1900. Pt was supined at 1230 today. However on monitor pt is saturating at 90-92% opposed to 95-99% when proned. Pt remains on BHARTI@0.008mcg/kg/min, Versed@8mg/hr, Fentanyl@275mcg/hr. GCS 3, RASS 6. Pt was suctioned and noted to have moderate amount of thick yellow/brown secretions. RT at bedside. Pressure Control: 95%/10/RR36/ET at 24@teeth. Full linen and bath @2300. Left side propped up with wedge and now patient is saturating at 95% consistently.
[2020-06-04] VITALS (24 sets, daily range): BP systolic 112–178; BP diastolic 47–87
[2020-06-04] MEDS ORDERED: FUROSEMIDE INJ 10 MG/ML 10 ML VIAL ONE (00:39)
[2020-06-04] MEDS ORDERED: SODIUM CHLORIDE 0.9% 100 ML ONE (00:40)
[2020-06-04] MEDS: ALBUMIN 25% 25GM 100ML 0.25 GM/ML BTL IV SCH ×3 (00:43→12:12)
[2020-06-04] MEDS: FUROSEMIDE INJ 100 MG in SODIUM CHLORIDE 0.9% 100 ML 90 ML IV SCH ×2 (00:44→14:18)
[2020-06-04] MEDS: FENTANYL 2000MCG/NS 250 250 ML IV PRN ×3 (03:15→18:43)
[2020-06-04 06:00] LABS: BASOPHILS # (AUTO) 0.1 (0.0-0.1); BASOPHILS % 0.4 % (0.0-1.0); EOSINOPHILS # (AUTO) 0.7 (0.0-0.4); EOSINOPHILS % 4.4 % (0.0-6.0); HEMATOCRIT 27.9 % (38.2-49.6); HEMOGLOBIN 8.5 g/dL (14.0-18.0); LYMPHOCYTES # (AUTO) 1.8 (1.0-3.2); LYMPHOCYTES % 10.8 % (18.0-39.1); MEAN CORPUSCULAR HEMOGLOBIN 28.7 pg (28-32); MEAN CORPUSCULAR HGB CONC 30.5 g/dL (31-35); MEAN CORPUSCULAR VOLUME 94.3 fL (81-99); MONOCYTES # (AUTO) 1.4 (0.2-0.8); MONOCYTES % 8.4 % (4.4-11.3); NEUTROPHILS # (AUTO) 11.8 (2.1-6.9); PLATELET COUNT 264 x10e3/uL (140-360); RED BLOOD COUNT 2.96 x10e6/uL (4.3-5.7); RED CELL DISTRIBUTION WIDTH 15.1 % (11.7-14.4)
[2020-06-04] MEDS: MIDAZOLAM HCL 5MG/ML 10ML VIAL 100 ML IV PRN ×4 (06:00→18:12)
[2020-06-04 06:18] LABS: ALANINE AMINOTRANSFERASE 20 IU/L (0-55); ALBUMIN 3.2 g/dL (3.5-5.0); ALBUMIN/GLOBULIN RATIO 0.9 (0.8-2.0); ALKALINE PHOSPHATASE 60 IU/L (40-150); ANION GAP 16.2 mmol/L (8-16); BLOOD UREA NITROGEN 25 mg/dL (7-26); BUN/CREATININE RATIO 35 (6-25); CALCIUM 9.1 mg/dL (8.4-10.2); CARBON DIOXIDE 32 mmol/L (22-29); CHLORIDE 98 mmol/L (98-107); CREATININE, SERUM 0.71 mg/dL (0.72-1.25); EST GLOMERULAR FILTRATION RATE > 60 ML/MIN (60-); GLUCOSE 125 mg/dL (74-118); POTASSIUM 3.2 mmol/L (3.5-5.1); SODIUM 143 mmol/L (136-145)
--- NOTE | 2020-06-04 06:41 | Diagnostic Imaging Report ---
EXAMINATION: CHEST SINGLE (PORTABLE) INDICATION: ^resp failure ^[id number] ^[id number] COMPARISON: 06/03/2020 FINDINGS: AP view TUBES and LINES: Stable endotracheal and enteric tubes LUNGS: Lungs are well inflated. Diffuse bilateral airspace opacities, not significantly changed from prior exam. PLEURA: No significant pleural effusion or pneumothorax. HEART AND MEDIASTINUM: The cardiomediastinal silhouette is obscured. BONES AND SOFT TISSUES: No acute osseous lesion. Soft tissues are unremarkable. UPPER ABDOMEN: No free air under the diaphragm. IMPRESSION: No significant interval change from prior exam. Signed by: Dr. Romeo Maciel MD on 06/04/2020 6:38 AM
[2020-06-04 07:54] LABS: ABG HCO3 34 mmol/L (22-26); ABG PCO2 53 mmHg (35-45); ABG PH 7.42 (7.35-7.45); ABG PO2 106 mmHg (80-105); ABG TCO2 36
[2020-06-04] MEDS: FAMOTIDINE 20 MG/2 ML VIAL IV SCH ×2 (09:05→17:00)
[2020-06-04] MEDS: POTASSIUM CHLORIDE 20MEQ/15ML UDC NG SCH ×2 (09:05→17:00)
[2020-06-04] MEDS: LACTULOSE SYRUP 20 GM/30 ML UDC PO SCH (09:05)
[2020-06-04] MEDS: BALSAM PERU/CASTOR OIL 60 GM OINT...G. TP SCH (09:06)
[2020-06-04] MEDS: ENOXAPARIN SOD INJ 40 MG/0.4 ML SYR SC SCH ×2 (09:06→23:05)
[2020-06-04] MEDS ORDERED: POTASSIUM CHLORIDE 20MEQ/100ML 100 ML IV ONE (09:15)
[2020-06-04] MEDS ORDERED: POTASSIUM CHLORIDE 20MEQ/100ML 100 ML IV PRN (13:30)
--- NOTE | 2020-06-04 14:00 | NUR ---
Patient proned at this time per MD order
--- NOTE | 2020-06-04 15:19 | Progress Note ---
DATE: SUBJECTIVE: The patient is still in the supine position. He remains on a mechanical ventilator with pressure control. He is on a PRVC with pressure control at a rate of 34. His tidal volume is set at PRVC mode of ventilation. PHYSICAL EXAMINATION: VITAL SIGNS: The patient is afebrile. Blood pressure is 119/47, saturation is 91%, T-max is 99.8. HEENT: No facial swelling or erythema. The patient has no oral endotracheal tube in place. LYMPHATIC: No submandibular, cervical, or supraclavicular adenopathy. CARDIAC: Regular rate and rhythm. Normal S1 and S2. LUNGS: Auscultation of the lungs reveals rhonchorous breath sounds bilaterally. There is no wheezing. ABDOMEN: Soft, nontender. There is no rebound or guarding. EXTREMITIES: No leg edema or calf tenderness. There is no cyanosis or clubbing. SKIN: No rashes. NEUROLOGICAL: No focal abnormalities. LABORATORY DATA: White blood cell count is 16.4, hemoglobin is 8.5, and platelet count is 264,000. The BUN to creatinine ratio is normal. The other electrolytes are within normal limits. IMPRESSION: 1. Acute respiratory failure. 2. Viral pneumonia and COVID-19 infection. 3. Diabetes. 4. Anemia secondary to chronic blood loss. 5. Hypertension. PLAN: 1. Continue current mode of ventilation. 2. Place the patient back in prone position. 3. Continue Versed and fentanyl along with rocuronium. 4. Continue to monitor ABGs. 5. Continue Lasix. 6. Continue enteral feedings. Manuel Quigley MD [facility]/MODL /[id number]
[2020-06-04] MEDS ORDERED: METOPROLOL TARTRATE INJ 1 MG/ML VIAL IV ONE (16:00)
[2020-06-04 17:11] LABS: ABG PCO2 77 mmHg (35-45); ABG PH 7.28 (7.35-7.45)
[2020-06-04 17:12] LABS: ABG HCO3 36 mmol/L (22-26); ABG PO2 74 mmHg (80-105); ABG TCO2 38
--- NOTE | 2020-06-04 17:15 | NUR ---
ABG results called to Dr Quigley. New orders received and carried out.
--- NOTE | 2020-06-04 20:40 | Progress Note ---
DATE: 06/04/2020 CONSULTANTS: 1. Dr. Quigley with Pulmonology. 2. Dr. Robertson with Infectious Disease. 3. Dr. Neumann with Cardiology. 4. Dr. Archer with Renal. SUBJECTIVE: Remains intubated and sedated. OBJECTIVE: VITAL SIGNS: Temperature 100, pulse 117, respirations 34, blood pressure 157/59, pulse ox is 90, remains on the vent. GENERAL: Sedated and intubated. CARDIOVASCULAR: Tachycardic, normal S1 and S2. LUNGS: Decreased breath sounds. ABDOMEN: Soft, obese. NEURO: Sedated. MUSCULOSKELETAL: No edema. SKIN: Dry. LABORATORY DATA: WBC 16.46, hemoglobin 8.5, hematocrit 27.9, and platelets 264. Sodium 143, potassium 3.2, creatinine 0.71, AST 26, ALT 20. Chest x-ray, no significant interval change from prior exam. IMPRESSION AND PLAN: 1. Acute respiratory failure due to coronavirus disease 2019 pneumonia. Remains intubated and sedated. Vent management per service center manager. ID on the case. 2. Chronic anemia. Hemoglobin 9, stable. We will continue to monitor. 3. Hypokalemia. Potassium 3.2. Replace. 4. Morbid obesity. 5. Fever. We will defer to ID. 6. Gastrointestinal and deep venous thrombosis prophylaxis. PPI and Lovenox subcu. Dictated by MARAH Castro Stacyching Anmol Rodriguez MD [facility]/MODL /[id number]
--- NOTE | 2020-06-04 21:20 | Progress Note ---
DATE: 06/04/2020 Cardiology Progress Note SUBJECTIVE: Remains intubated and sedated. OBJECTIVE: VITAL SIGNS: Temperature 100 degrees, heart rate is 114, sinus tachycardia on telemetry, blood pressure 136/56, respiratory rate 36, O2 saturation 94%. GENERAL: Intubated and sedated. NECK: Supple. CHEST: With rales and decreased breath sounds. CARDIOVASCULAR: Regular rate and rhythm. Normal S1 and S2. ABDOMEN: Bowel sounds positive. EXTREMITIES: Trace edema. Normothermic. CARDIOVASCULAR MEDICATIONS: Reviewed. Furosemide 10 mg/hour, potassium chloride 40 mEq b.i.d., Lovenox 40 mg subcu every 12 hours, hydralazine 10 q.4 hours. STUDIES: Reviewed. Sodium 143, potassium 3.2, chloride 98, bicarbonate 32, BUN 25, creatinine 0.71, and glucose 125. White blood cells 16.4, hemoglobin 8.5, and platelets 264. PT 18.7, PTT 30.9, INR 1.46. AST 26, ALT 20, alkaline phosphatase 60, total bilirubin is 1.1. ASSESSMENT AND PLAN: A 65-year-old man presents with [id number] diastolic heart failure, anemia, hypertension, coronavirus disease 2019 infection, community-acquired pneumonia, acute respiratory failure. RECOMMEND: 1. Continue diuretics. 2. Continue electrolyte repletion as needed. 3. Monitor H and H. 4. Continue Lovenox. 5. Sinus tachycardia improved after 5 mg metoprolol IV x1 and resolving. Change to prone position. Add metoprolol 5 q.8 hours as needed p.r.n. Discussed with nursing staff. MD CHRISTINE Bal/SHIRLEYL /[id number]
[2020-06-04] MEDS: LATANOPROST(OPTH) 2.5 ML BTL OP SCH (23:05)
[2020-06-05] VITALS (16 sets, daily range): BP systolic 124–184; BP diastolic 51–66
[2020-06-05] MEDS: MIDAZOLAM HCL 5MG/ML 10ML VIAL 100 ML IV PRN ×2 (01:00→22:30)
[2020-06-05] MEDS: FUROSEMIDE INJ 100 MG in SODIUM CHLORIDE 0.9% 100 ML 90 ML IV SCH (01:59)
[2020-06-05] MEDS: FENTANYL 2000MCG/NS 250 250 ML IV PRN ×2 (02:01→10:12)
[2020-06-05] MEDS: ROCURONIUM BROMIDE 1,250 MG in SODIUM CHLORIDE 0.9% 250ML 125 ML IV PRN (05:17)
[2020-06-05] MEDS ORDERED: METOPROLOL TARTRATE INJ 1 MG/ML VIAL IV PRN (05:30)
[2020-06-05 05:37] LABS: BASOPHILS % 0.3 % (0.0-1.0); EOSINOPHILS % 6.6 % (0.0-6.0); HEMATOCRIT 27.7 % (38.2-49.6); HEMOGLOBIN 8.2 g/dL (14.0-18.0); LYMPHOCYTES # (AUTO) 1.7 (1.0-3.2); LYMPHOCYTES % 11.2 % (18.0-39.1); MEAN CORPUSCULAR HGB CONC 29.6 g/dL (31-35); MEAN CORPUSCULAR VOLUME 94.5 fL (81-99); MONOCYTES # (AUTO) 1.5 (0.2-0.8); MONOCYTES % 9.9 % (4.4-11.3); NEUTROPHILS # (AUTO) 10.1 (2.1-6.9); NEUTROPHILS % 68.3 % (38.7-80.0); PLATELET COUNT 266 x10e3/uL (140-360); RED BLOOD COUNT 2.93 x10e6/uL (4.3-5.7); RED CELL DISTRIBUTION WIDTH 15.3 % (11.7-14.4)
[2020-06-05 06:08] LABS: ALANINE AMINOTRANSFERASE 17 IU/L (0-55); ALBUMIN 3.3 g/dL (3.5-5.0); ALBUMIN/GLOBULIN RATIO 0.9 (0.8-2.0); ALKALINE PHOSPHATASE 56 IU/L (40-150); ANION GAP 13.1 mmol/L (8-16); BLOOD UREA NITROGEN 24 mg/dL (7-26); BUN/CREATININE RATIO 37 (6-25); CALCIUM 9.1 mg/dL (8.4-10.2); CARBON DIOXIDE 35 mmol/L (22-29); CHLORIDE 100 mmol/L (98-107); CREATININE, SERUM 0.65 mg/dL (0.72-1.25); EST GLOMERULAR FILTRATION RATE > 60 ML/MIN (60-); GLUCOSE 116 mg/dL (74-118); POTASSIUM 3.1 mmol/L (3.5-5.1); SODIUM 145 mmol/L (136-145)
[2020-06-05 07:54] LABS: ABG HCO3 37 mmol/L (22-26); ABG PCO2 66 mmHg (35-45); ABG PH 7.36 (7.35-7.45); ABG PO2 96 mmHg (80-105); ABG TCO2 39
--- NOTE | 2020-06-05 07:55 | NUR ---
this infectious disease progress note. Patient seen and examined chart reviewed patient remains intensive care unit prognosis remains very guarded. Discussed with medical team. Remains intubated and sedated. OBJECTIVE: VITAL SIGNS: Temperature 100, pulse 117, respirations 34, blood pressure 157/59, pulse ox is 90, remains on the vent. GENERAL: Sedated and intubated. CARDIOVASCULAR: Tachycardic, normal S1 and S2. LUNGS: Decreased breath sounds. ABDOMEN: Soft, obese. NEURO: Sedated. MUSCULOSKELETAL: No edema. SKIN: Dry. LABORATORY DATA: WBC 16.46, hemoglobin 8.5, hematocrit 27.9, and platelets 264. Sodium 143, potassium 3.2, creatinine 0.71, AST 26, ALT 20. Chest x-ray, no significant interval change from prior exam. IMPRESSION AND PLAN: 1. Acute respiratory failure due to coronavirus disease 2019 pneumonia. Remains intubated and sedated. Vent management per windows mobile developer. I 2. Chronic anemia. Hemoglobin 9, stable. We will continue to monitor. 3. Hypokalemia. Potassium 3.2. Replace. 4. Morbid obesity. 5. Fever. rule out aspiration pneumonia 6. Gastrointestinal and deep venous thrombosis prophylaxis. please see orders
--- NOTE | 2020-06-05 07:57 | NUR ---
infectious disease progress notes. Patient remains intensive care unit intubated and sedated . Discussed with medical team. Lab data review of chart reviewed events noted Remains intubated and sedated. OBJECTIVE: VITAL SIGNS: Temperature 100, pulse 117, respirations 34, blood pressure 157/59, pulse ox is 90, remains on the vent. GENERAL: Sedated and intubated. CARDIOVASCULAR: Tachycardic, normal S1 and S2. LUNGS: Decreased breath sounds. ABDOMEN: Soft, obese. NEURO: Sedated. MUSCULOSKELETAL: No edema. SKIN: Dry. LABORATORY DATA: IMPRESSION AND PLAN: 1. Acute respiratory failure due to coronavirus disease 2019 pneumonia. Remains intubated and sedated. Vent management per office assistant receptionist. ID on the case. 2. Chronic anemia. Hemoglobin 9, stable. We will continue to monitor. 3. Hypokalemia. Potassium 3.2. Replace. 4. Morbid obesity. Blood cultures showing gram-positive cocci will start vancomycin Await identification Recheck a blood culture Follow-up with vancomycin trial of Recheck CBC to check in panel Further recommendations to follow
[2020-06-05] MEDS: VANCOMYCIN 1GM/NS 250 ML 250 ML IV SCH ×2 (10:10→21:00)
[2020-06-05] MEDS: FAMOTIDINE 20 MG/2 ML VIAL IV SCH ×2 (10:11→17:42)
[2020-06-05] MEDS: LACTULOSE SYRUP 20 GM/30 ML UDC PO SCH (10:11)
[2020-06-05] MEDS: BALSAM PERU/CASTOR OIL 60 GM OINT...G. TP SCH (10:11)
[2020-06-05] MEDS: ENOXAPARIN SOD INJ 40 MG/0.4 ML SYR SC SCH ×2 (10:11→21:43)
[2020-06-05] MEDS: POTASSIUM CHLORIDE 20MEQ/15ML UDC NG SCH ×2 (12:35→17:42)
--- NOTE | 2020-06-05 12:43 | Progress Note ---
DATE: SUBJECTIVE: The patient is afebrile. He remains in the prone position. He is currently on a PRVC mode of ventilation with pressure control. He is set at 36 and has a pressure above PEEP of 30 and a PEEP of 10. His tidal volumes are 380-390. PHYSICAL EXAMINATION: VITAL SIGNS: Blood pressure is 154/58 and saturation is 99%. Pulse is 87. HEENT: No facial swelling or erythema. There is an oral endotracheal tube. The patient has a PICC line in place. CARDIAC: Regular rate and rhythm with normal S1, S2. LUNGS: Auscultation of lungs reveals crackles at the bases. There is no wheezing. ABDOMEN: Soft, nontender. There is no rebound or guarding. EXTREMITIES: No leg edema or calf tenderness. There is no cyanosis or clubbing. SKIN: No rashes. NEUROLOGICAL: No focal abnormalities. LABORATORY DATA: Potassium is 3.1. The BUN to creatinine ratio is 24 to 0.65 and other electrolytes are within normal limits. Albumin is 3.3. The white blood cell count is 14.8 and hemoglobin is 8.2. The platelet count is 266. IMPRESSION: 1. Acute respiratory failure. 2. Viral pneumonia and coronavirus disease-19 infection. 3. Diabetes. 4. Anemia secondary to chronic blood loss. 5. Hypertension. PLAN: 1. Case discussed with daughter. 2. Continue ventilation in the prone position. 3. Continue Versed, fentanyl and rocuronium. 4. Continue to monitor ABGs. 5. Continue Lasix drip. 6. Continue enteral feedings. 7. Case discussed with nursing, Respiratory, and infectious Disease. Greater than 35 minutes in direct critical care time. Manuel Quigley MD [facility]/MODL /[id number]
[2020-06-05] MEDS ORDERED: POTASSIUM CHLORIDE 20MEQ/100ML 100 ML IV ONE (14:15)
--- NOTE | 2020-06-05 20:25 | Progress Note ---
DATE: 06/05/2020 CONSULTANTS: 1. Dr. Quigley, shake backboard notcher. 2. Dr. Robertson with Infectious Disease. 3. Dr. Neumann with Cardiology. 4. Dr. Archer with Renal. SUBJECTIVE: Remains intubated and sedated. OBJECTIVE: VITAL SIGNS: Temperature 100.1, pulse 97, respirations 36, blood pressure 172/62, pulse ox 99% on the vent. GENERAL: Sedated and intubated. CARDIOVASCULAR: Tachycardia. Normal S1 and S2 heard. LUNGS: Decreased breath sounds. ABDOMEN: Soft, obese. NEURO: Sedated. MUSCULOSKELETAL: Mild edema. SKIN: Dry. LABORATORY DATA: WBC 14.79, hemoglobin 8.2, hematocrit 27.7, and platelets 66. Sodium 145, potassium 3.1, BUN 24, creatinine 0.65, estimated GFR is greater than 60, blood glucose 116. IMPRESSION AND PLAN: 1. Acute respiratory failure due to coronavirus disease 2019 pneumonia. Remains intubated and sedated. Vent management per shake backboard notcher. Vancomycin per ID. 2. Chronic anemia. Hemoglobin 8.2. We will continue to monitor. 3. Hypokalemia. Replace and recheck. 4. Recurrent fever. We will defer to ID. Currently on vancomycin. 5. Morbid obesity. 6. Gastrointestinal and deep venous thrombosis prophylaxis. Continue PPI and Lovenox. 7. Hypertension. We will treat as needed with metoprolol. 8. Edema. Continue Lasix drip. Nephrology on the case. Dictated by MARAH Castro Alicja Rodriguez MD MY/MODL /[id number]
[2020-06-05] MEDS: LATANOPROST(OPTH) 2.5 ML BTL OP SCH (21:00)
[2020-06-05] MEDS ORDERED: FUROSEMIDE INJ 10 MG/ML 10 ML VIAL ONE (23:44)
[2020-06-05] MEDS ORDERED: SODIUM CHLORIDE 0.9% 100 ML ONE (23:45)
[2020-06-06] VITALS (16 sets, daily range): BP systolic 93–168; BP diastolic 40–72
--- NOTE | 2020-06-06 00:11 | Progress Note ---
DATE: 06/05/2020 Cardiology Progress Note SUBJECTIVE: The patient is sedated on mechanical ventilation. OBJECTIVE: VITAL SIGNS: Blood pressure 160/64 with a heart rate of 100, respiratory rate is 36, FiO2 is 100%. The patient is on the ventilator. Pulse oximetry shows 96% saturation. NECK: Trachea midline, ETT. CHEST: Decreased breath sounds. CARDIOVASCULAR: Regular rate and rhythm. Normal S1, S2. No murmurs heard. ABDOMEN: Soft with normal bowel sounds. EXTREMITIES: Trace edema. CARDIOVASCULAR MEDICATIONS: Reviewed (metoprolol IV prn) and IV Lasix drip. LABORATORY DATA: White blood cell count is 14.8 thousand, hemoglobin is 8.2, hematocrit is 27.7, H and H is stable, platelet count is 266,000. Chemistry shows a sodium of 145, potassium is 3.1, chloride is 100, carbon dioxide is 35, BUN is 24, creatinine is 0.65, and glucose is 116. The liver tests are within reference range. ASSESSMENT: 1. Acute respiratory failure due to COVID-19 infection and associated pneumonia. Followed by pulmonary and ID. 2. Acute on chronic diastolic heart failure. Continue IV Lasix. 3. Anemia. 4. Hypertension. Metoprolol IV prn. MD AL Ndiaye/MODL /[id number] MTDD
[2020-06-06] MEDS: FENTANYL 2000MCG/NS 250 250 ML IV PRN ×3 (00:31→21:10)
[2020-06-06] MEDS: FUROSEMIDE INJ 100 MG in SODIUM CHLORIDE 0.9% 100 ML 90 ML IV SCH (02:30)
[2020-06-06] MEDS: MIDAZOLAM HCL 5MG/ML 10ML VIAL 100 ML IV PRN ×2 (03:00→21:13)
[2020-06-06 06:19] LABS: BASOPHILS # (AUTO) 0.1 (0.0-0.1); BASOPHILS % 0.5 % (0.0-1.0); EOSINOPHILS # (AUTO) 0.8 (0.0-0.4); EOSINOPHILS % 3.9 % (0.0-6.0); HEMATOCRIT 30.9 % (38.2-49.6); HEMOGLOBIN 9.4 g/dL (14.0-18.0); LYMPHOCYTES # (AUTO) 1.9 (1.0-3.2); LYMPHOCYTES % 9.1 % (18.0-39.1); MEAN CORPUSCULAR HEMOGLOBIN 28.1 pg (28-32); MEAN CORPUSCULAR HGB CONC 30.4 g/dL (31-35); MEAN CORPUSCULAR VOLUME 92.5 fL (81-99); MONOCYTES # (AUTO) 1.6 (0.2-0.8); MONOCYTES % 7.5 % (4.4-11.3); NEUTROPHILS # (AUTO) 16.4 (2.1-6.9); NEUTROPHILS % 76.4 % (38.7-80.0); PLATELET COUNT 314 x10e3/uL (140-360); RED BLOOD COUNT 3.34 x10e6/uL (4.3-5.7); RED CELL DISTRIBUTION WIDTH 15.1 % (11.7-14.4)
[2020-06-06 06:42] LABS: ALANINE AMINOTRANSFERASE 21 IU/L (0-55); ALBUMIN 2.9 g/dL (3.5-5.0); ALBUMIN/GLOBULIN RATIO 0.7 (0.8-2.0); ALKALINE PHOSPHATASE 69 IU/L (40-150); ANION GAP 16.3 mmol/L (8-16); BLOOD UREA NITROGEN 22 mg/dL (7-26); BUN/CREATININE RATIO 35 (6-25); CARBON DIOXIDE 36 mmol/L (22-29); CHLORIDE 98 mmol/L (98-107); CREATININE, SERUM 0.62 mg/dL (0.72-1.25); EST GLOMERULAR FILTRATION RATE > 60 ML/MIN (60-); GLUCOSE 135 mg/dL (74-118); POTASSIUM 3.3 mmol/L (3.5-5.1); SODIUM 147 mmol/L (136-145)
[2020-06-06] MEDS: FAMOTIDINE 20 MG/2 ML VIAL IV SCH ×2 (08:02→18:54)
[2020-06-06] MEDS: VANCOMYCIN 1GM/NS 250 ML 250 ML IV SCH ×2 (08:02→21:09)
[2020-06-06] MEDS: POTASSIUM CHLORIDE 20MEQ/15ML UDC NG SCH ×2 (08:03→18:54)
[2020-06-06] MEDS: ENOXAPARIN SOD INJ 40 MG/0.4 ML SYR SC SCH ×2 (08:03→19:47)
[2020-06-06] MEDS: BALSAM PERU/CASTOR OIL 60 GM OINT...G. TP SCH (08:03)
[2020-06-06] MEDS: LACTULOSE SYRUP 20 GM/30 ML UDC PO SCH (08:03)
--- NOTE | 2020-06-06 09:04 | NUR ---
progress note seen and examined the patient is afebrile. He remains in the prone position. He is currently on a PRVC mode of ventilation with pressure control. He is set at 36 and has a pressure above PEEP of 30 and a PEEP of 10. His tidal volumes are 380-390. PHYSICAL EXAMINATION: VITAL SIGNS: Blood pressure is 154/58 and saturation is 99%. Pulse is 87. HEENT: No facial swelling or erythema. There is an oral endotracheal tube. The patient has a PICC line in place. CARDIAC: Regular rate and rhythm with normal S1, S2. LUNGS: Auscultation of lungs reveals crackles at the bases. There is no wheezing. ABDOMEN: Soft, nontender. There is no rebound or guarding. EXTREMITIES: No leg edema or calf tenderness. There is no cyanosis or clubbing. SKIN: No rashes. NEUROLOGICAL: No focal abnormalities. LABORATORY DATA: Potassium is 3.1. The BUN to creatinine ratio is 24 to 0.65 and other electrolytes are within normal limits. Albumin is 3.3. The white blood cell count is 14.8 and hemoglobin is 8.2. The platelet count is 266. IMPRESSION: 1. Acute respiratory failure. 2. Viral pneumonia and coronavirus disease-19 infection. 3. Diabetes. 4. Anemia secondary to chronic blood loss. 5. Hypertension. patient remains very critical discussed with the medical team continue as ordered continue with supportive care aspiration precaution we will treat for aspiration pneumonia and needed
[2020-06-06] MEDS ORDERED: VECURONIUM BROMIDE FOR INJ 20 MG VIAL ONE ×2 (10:25→17:14)
--- NOTE | 2020-06-06 11:33 | Progress Note ---
DATE: SUBJECTIVE: The patient is still in the prone position. His endotracheal tube is dislodged slightly and had to be advanced early this morning. He remains on Versed and fentanyl along with rocuronium. PHYSICAL EXAMINATION: VITAL SIGNS: The patient is afebrile. T-max is 100.2. He is currently on a pressure control mode of ventilation with a pressure control of 28 and a PEEP of 10. His FiO2 is 80%. His respiratory rate is 36. The blood pressure is 168/65 and the saturation is 94%. HEENT: Shows no facial swelling or erythema. There is an oral endotracheal tube. He has an IJ line. The site is clean. There is no drainage. CARDIAC: Reveals regular rate and rhythm with normal S1 and S2. LUNGS: Auscultation of lungs reveals crackles at the bases. There is no wheezing. ABDOMEN: Soft and nontender. There is no rebound or guarding. EXTREMITIES: Shows no leg edema or calf tenderness. There is no cyanosis or clubbing. SKIN: Shows no rashes. LABORATORY DATA: White blood cell count is 21.4 and hemoglobin is 9.4. The platelet count is 314. BUN to creatinine ratio is normal. Potassium is 3.3 and the sodium is 147. IMPRESSION: 1. Acute respiratory failure. 2. Viral pneumonia and COVID-19. 3. Diabetes. 4. Anemia secondary to chronic blood loss. 5. Hypertension. PLAN: 1. Continue pressure control ventilation. 2. Continue to monitor ABGs. 3. Continue using the prone position. 4. Continue Versed and fentanyl along with rocuronium. 5. Continue enteral feedings. 6. Hold the Lasix for today. Manuel Quigley MD [facility]/MODL /[id number]
--- NOTE | 2020-06-06 11:55 | Diagnostic Imaging Report ---
EXAMINATION: CHEST SINGLE (PORTABLE) INDICATION: Respiratory failure COMPARISON: Chest radiograph of 06/04/2020 FINDINGS: LINES/TUBES:Support lines and tubes unchanged. LUNGS:The lungs are moderately inflated. Unchanged bilateral interstitial and airspace opacities PLEURA:No pleural effusion or pneumothorax. MEDIASTINUM:The cardiomediastinal silhouette appears unchanged in size and shape. BONES/SOFT TISSUES:No acute osseous injury. ABDOMEN:No free air under the diaphragm. IMPRESSION: No significant interval change. Signed by: Nicki Durham MD on 06/06/2020 11:52 AM
[2020-06-06 11:59] LABS: EOSINOPHILS % (MANUAL) 3 % (0-7); LYMPHOCYTES % (MANUAL) 5 % (19-48); MONOCYTES % (MANUAL) 7 % (3.4-9.0); NEUTROPHILS % (MANUAL) 84 % (40-74); PLATELET ESTIMATE ADEQUATE; PLATELET MORPHOLOGY COMMENT NORMAL; RBC MORPHOLOGY COMMENT NORMAL
[2020-06-06 15:28] LABS: ABG HCO3 40 mmol/L (22-26); ABG PCO2 50 mmHg (35-45); ABG PH 7.51 (7.35-7.45); ABG PO2 55 mmHg (80-105)
[2020-06-06 15:29] LABS: ABG TCO2 41
--- NOTE | 2020-06-06 15:42 | NUR ---
Nutrition Intervention Note RD Recommendation(s) for Physician: -Recommend changing TF to Pivot 1.5 with goal rate of 45 ml/hr (to provide 1620 kcal and 101 gm protein). Pt may be fed when in prone position at goal rate in reverse Trendelenburg with HOB at 10-25 degrees. -Continue water flushes of 50 ml q 4 hrs per current MD order. -Monitor BMP with Mg and Phos closely, replace low lytes as needed. -Bowel regimen per MD. Plan of Care: RD following, monitoring for tolerance and adequacy, tube feed recommendation Nutrition reason for involvement: follow up RD Assessment 06/06: Follow up. Pt remains intubated, sedated, and paralyzed. No pressor support. Pt continues on TF of Vital HP, infusing at 20 ml/hr at time of visit- RN unavailable to discuss rate. Pt not meeting needs with current TF > [address] Quigley regarding TF and goal rate, MD amenable to continuing goal rate while in prone position as it is not contraindicated. RD to modify TF order per MD. Chart reviewed. Will continue to monitor. 06/02: Follow up. Chart reviewed. Pt remains intubated and sedated. Pt is receiving Vital HP @ 30 mL/hr at this time - not meeting nutritional needs. Current recommendations remain appropriate. Will continue to monitor. 05/29: Follow up. Chart reviewed. Pt remains intubated and sedated. MD note indicates that pt remains in the prone position. Pt is receiving Vital HP @ 20 mL/hr at this time. Current recommendations remain appropriate. Will continue to monitor. 05/24: Follow up. Pt remains intubated and sedated, requiring to be proned- no paralytic currently. Vital HP infusing at goal rate, providing >75% of estimated needs. Chart reviewed. Current TF rec's remain appropriate. Will continue to monitor. 05/22: Follow up. Pt remains intubated, paralyzed, and sedated. TF documented as Glucerna 1.2 at 30 ml/hr currently, not meeting needs. Pt requiring proning at times. Pt with chest tubes to output. Current TF rec's remain appropriate. Chart reviewed. Will continue to monitor. 05/17: Follow up. Chart reviewed. Pt remains intubated. RN reports that pts tube feeding is at 10 mL/hr at this time and pt is in the prone position. Current recommendations remain appropriate. Will continue to monitor. 05/12: Pt was intubated yesterday and tube feeding was ordered. It is recorded that pt consumed 25% of breakfast on 05/10 and was previously consuming 50-100% of meals. Recommendations provided. Will continue to monitor. 05/09: 65 YOM admitted for hypoxia and pneumonia due to COVID-19. Pt assessed today for LOS. Attempted to call pt's room x 2, no answer- unable to obtain hx at this time. No wt loss or poor intake indicated at admit per MD notes. Pt with 50-100% intake since admit. Pt currently on Vapotherm per current respiratory status. Labs and meds reviewed. LBM 05/08, skin intact. Chart reviewed. Will continue to monitor. Principal Problems/Diagnoses: hypoxia, pneumonia due to COVID-19 PMH: HTN, HLD GI: large, round, soft abdomen, last recorded BM 05/25 Skin: stage 2 pressure ulcer/suspected DTI left ear, stage 2 pressure ulcer bilateral cheek, stage 2 pressure ulcer lower urethral meatus Labs: 06/06: Na 147, K 3.3, BUN 22, Cr 0.62, Gluc 135, Ca 9 06/02: Na 140, K 3.5, BUN 24, Cr 0.66, Glu 116 05/29: Na 141, K 3.9, BUN 24, Cr 0.66, Glu 87, Ca 9.5 05/24: Na 147, K 3, BUN 27, Cr 0.61, Gluc 100, POC Gluc 123-126, Ca 6.3, Mg 1.5 05/22: Na 143, K 4.5, BUN 28, Cr 0.77, Gluc 122, POC Gluc 122-136 (05/17/20) Na 141, K 4.2, BUN 18, Cr 0.61, Glu 87, Ca 8.7 (05/12/20) Na 141, K 5.4, BUN 33, Cr 0.76, Glu 118, Ca 7.9 Meds: KCl IVPB, lactulose, pepcid IVF/Drips: Rocuronium drip, Fentanyl drip, Versed, drip, Furosemide drip Ht: 66 inches Wt: 212 lbs (06/06) 221 lbs (06/02) 246 lbs (05/28) 218 lbs (05/09) BMI: 35.2 using weight of 218 lbs IBW: 142 lbs Malnutrition Evaluation (06/06/20) Pt meets criteria mild protein calorie malnutrition. Energy intake: Moderate- <50% of estimated energy requirements for >5 days Weight loss: does not meet criteria- wt fluctuations since admit noted with no significant change from admit wt, likely fluid related Fat loss: none- ample skinfold thickness of upper arms, observed outside of pt room Muscle loss: none- shoulder round, observed outside of pt room Supporting Evidence: Fluid accumulation: Mild, + 1 edema Functional Status: unable to evaluate- pt intubated and sedated Nutrition Prescription (Diet Order): Vital HP at 55 ml/hr (1320 kcal and 105 gm protein) infusing at 20 mL/hr currently (provides 576 kcal, 42 g protein) Estimated Nutritional Needs: 5479-8506 calories/day (22-25 kcal/kg IBW) 97-129 g protein/day (1.5-2 g pro/kg IBW) Diet Adequacy: Not meeting calorie needs (41% kcal), Not meeting protein needs (43% protein) Tolerance: tolerating TF Diet Education Needs Assessment: Diet education is not indicated, pt is intubated Nutrition Care Level: high pt not meeting nutritional needs Nutrition Diagnosis: Inadequate oral intake related to acute respiratory failure/mechanical ventilation as evidenced by requiring enteral nutrition. Goal: Patient will meet 75-100% of estimated needs by follow up Progress: goal not met at current tube feed rate Interventions: - Composition, Rate, Route, Recommended Modifications, Collaboration with other providers Monitoring/Evaluation: -Total energy intake, Total protein intake, Formula/Solution, Weight change Signed: Carrie Corrigan RD, LD, CNSC
[2020-06-06 17:57] LABS: ABG HCO3 42 mmol/L (22-26); ABG PCO2 119 mmHg (35-45); ABG PH 7.15 (7.35-7.45); ABG PO2 93 mmHg (80-105); ABG TCO2 45
[2020-06-06] MEDS ORDERED: LACTATED RINGER'S 1,000 ML ONE (17:58)
--- NOTE | 2020-06-06 18:19 | Diagnostic Imaging Report ---
Examination: Single AP view of the chest. COMPARISON: Portable chest 06/06/2020 INDICATION: Pneumonia, hypoxia, enteric tube placement IMPRESSION: 1. Lines and Tubes: Endotracheal tube projects 7.2 cm above the cadence, at the level of the thoracic inlet. Enteric tube is seen below the left hemidiaphragm, however, tip is not visualized. Left-sided PICC line has distal tip projecting at the junction of the left innominate and SVC. 2. No interval change in diffuse bilateral interstitial and bilateral lower lobe alveolar opacities consistent with pneumonia. 3. Cardiomediastinal silhouette is normal. Pulmonary vasculature is normal. 4. No acute bony abnormalities. Signed by: Dr. Cabrera Roberson M.D. on 06/06/2020 6:15 PM
--- NOTE | 2020-06-06 18:32 | Diagnostic Imaging Report ---
Exam: Abdominal film Clinical History: NG tube placement Comparison: KUB DISCUSSION: Frontal view of the abdomen shows a nonobstructive bowel gas pattern with mild/moderate/marked amount of retained stool.There are no dilated, air-filled loops of bowel. There are no abnormal calcifications.No acute bone abnormality. Enteric tube has distal tip projecting in the second portion of the duodenum. Diffuse bilateral interstitial and alveolar opacities noted in the visualized portions of the lung bases. IMPRESSION: 1. Enteric tube has distal tip projecting in the second portion of the duodenum. The staff physician below has personally reviewed this exam on the date of dictation. Signed by: Dr. Cabrera Roberson M.D. on 06/06/2020 6:28 PM
--- NOTE | 2020-06-06 18:50 | Operative Report ---
DATE OF PROCEDURE: SURGEON: Manuel Quigley MD PROCEDURE: Endotracheal intubation with GlideScope. PREOPERATIVE DIAGNOSIS: Respiratory failure. POSTOPERATIVE DIAGNOSIS: Respiratory failure. CONSENT: Consent was deemed emergent due to acute respiratory distress. MEDICATIONS: The patient was on Versed and fentanyl at the time of the procedure. PROCEDURE IN DETAIL: The staff had difficulty passing the suction catheter through the endotracheal tube, also noticed an air leak as well. I tried to pass a bougie through the endotracheal tube. There was an occlusion at the end of tube. Tube was removed. A GlideScope was used to visualize the glottis. An 8.0 endotracheal tube was passed through the cords on the first attempt. There were equal breath sounds bilaterally. There was good CO2 return. The patient was connected to the ventilator. Subsequent examination of the old endotracheal tube showed a mucus plug, occluding the distal lumen of the endotracheal tube. COMPLICATIONS: None. ESTIMATED BLOOD LOSS: None. Manuel Quigley MD [facility]/MODL /[id number]
--- NOTE | 2020-06-06 18:50 | Diagnostic Imaging Report ---
Examination: Single AP view of the chest. COMPARISON: Chest x-ray 06/06/2020 INDICATION: [id number] IMPRESSION: 1. Lines and Tubes: Endotracheal tube has distal tip projecting 5.3 cm above the cadence. Left-sided central line and enteric tubes are unchanged. 2. No interval change in bilateral diffuse interstitial and bilateral lower lobe alveolar opacities consistent with pneumonia. 3. Cardiomediastinal silhouette is normal. Pulmonary vasculature is obscured. 4. No acute bony abnormalities. Signed by: Dr. Cabrera Roberson M.D. on 06/06/2020 6:47 PM
[2020-06-06] MEDS ORDERED: ALBUMIN 25% 25GM 100ML 0.25 GM/ML BTL IV SCH (19:00)
--- NOTE | 2020-06-06 19:05 | NUR ---
Pt's vent alarmed and observed upon entering room that patient was not pulling tidal volumes. Rt and this RN at bedside. Attempted to suction patient and unable to pass catheter. Notified Dr. Quigley at 1700. Dr. Quigley at bedside immediately to reintubate patient. New #[id number] placed without difficulty by Dr. Quigley. CXR confirmed placement. Immediately after chest xr patient's vent began alarming again and cuff on new tube had blown. Dr. Quigley at bedside to place another ETT. Chest xray confirmed placement. Patient blood pressure dropped SBP in 70's and 80's. New order to give 250cc bolus of LR. Bolus given and SBP now 112. Patient is resting quietly in bed. Sedated and paralyzed on vent. sat's 95%.
[2020-06-06] MEDS: ALBUMIN 25% 12.5GM 50ML 100 ML IV SCH (20:00)
[2020-06-06 20:24] LABS: ABG PH 7.32 (7.35-7.45)
[2020-06-06 20:25] LABS: ABG HCO3 38 mmol/L (22-26); ABG PCO2 74 mmHg (35-45); ABG PO2 83 mmHg (80-105); ABG TCO2 40
--- NOTE | 2020-06-06 20:31 | Progress Note ---
DATE: 06/06/2020 CONSULTANTS: 1. Dr. Quigley, Pulmonology. 2. Dr. Robertson, Infectious Disease. 3. Dr. Neumann, cardiology. 4. Dr. Archer, Renal. SUBJECTIVE: Sedated and intubate in prone position greater than 24 hours. OBJECTIVE: VITAL SIGNS: Temperature 99.5, pulse is 117, respirations 36, blood pressure 132/72, pulse ox is 89 on the vent. GENERAL: Sedated and intubated. CARDIOVASCULAR: Tachycardia. LUNGS: Decreased breath sounds, intubated. ABDOMEN: Soft and obese. NEURO: Sedated. MUSCULOSKELETAL: Mild edema in the lower extremities. SKIN: Dry with multiple pressure ulcers. LABORATORY DATA: WBC 21.43, hemoglobin 9.4, and platelets 314. Sodium 147, potassium 3.3, creatinine 0.62, BUN is 22. Blood culture today is positive for gram-positive cocci in clusters and Staphylococcus. Chest x-ray, no interval change in bilateral diffuse interstitial and bilateral lower lobe alveolar opacities, consistent with pneumonia and pulmonary vasculature is obscured. No acute bony abnormalities. ASSESSMENT: 1. Acute respiratory failure due to coronavirus disease 2019 pneumonia. Remains intubated and sedated. Vent management per Pulmonology. Blood culture shows gram-positive cocci in clusters. Continue vancomycin per ID. 2. Chronic anemia. Hemoglobin is stable. We will continue to monitor closely. 3. Hypokalemia. Replace. 4. Morbid obesity. 5. Hypertension. We will treat with metoprolol as needed. 6. Generalized edema. Continue Lasix per Renal. 7. Gastrointestinal and deep venous thrombosis prophylaxis. Continue PPI and Lovenox. PLAN: The patient will need to be in prone position to help with oxygenation, going on 24 hours now. We will continue plan of treatment. Dictated by MARAH Castro Alicja Rodriguez MD MY/MODL /[id number]
[2020-06-06] MEDS ORDERED: NOREPINEPHRINE 8 MG/D5W 250 ML 250 ML IV PRN (20:45)
--- NOTE | 2020-06-06 21:00 | NUR ---
Dr. Quigley was called concerning new AB.31/73.9/83/37.7 CURRENT VENT SETTINGS: 100/12/28/Pressure Control 26, ET@24 at teeth. Pt currently saturating at 97% on monitor. VO to decrease FiO2 from 100 to 95%. Pt remains supined. Provider was also notified on pt trending with a MAP of 50-60 on ART. ART line has been zeroed and leveled. Pt received Albumin and 500cc bolus of LR at 1800. No improvement. Pt remains in ST 90-110s. VO to restart levo gtt to maintain MAP greater than 65.
[2020-06-06] MEDS: LATANOPROST(OPTH) 2.5 ML BTL OP SCH (21:10)
[2020-06-07] VITALS (24 sets, daily range): BP systolic 114–149; BP diastolic 42–72
--- NOTE | 2020-06-07 00:27 | Progress Note ---
DATE: 06/06/2020 Cardiology Progress Note SUBJECTIVE: The patient is sedated on mechanical ventilation. OBJECTIVE: VITAL SIGNS: Show blood pressure of 111/54, heart rate of 108, respiratory rate is 28, FiO2 is 100%, pulse oximetry shows 95% saturation. HEAD AND NECK: ETT CHEST: Shows decreased breath sounds. CARDIOVASCULAR: Regular rate and rhythm. Normal S1 and S2. No murmurs heard. ABDOMEN: Soft EXTREMITIES: Trace edema. CARDIOVASCULAR MEDICATIONS: IV Lasix discontinued. LABORATORY DATA: White blood cell count is 21K, hemoglobin is 9, hematocrit is 31, and platelet count is 314,000. Basic metabolic profile shows a sodium of 147, potassium of 3.3, chloride of 98, carbon dioxide is 36, BUN is 22, creatinine is 0.6, and glucose is 135. Liver tests are within reference range, albumin 2.9. ASSESSMENT AND PLAN: 1. Acute respiratory failure due to Covid19 infection and associated pneumonia. Followed by pulmonary and ID. 2. Qtwfa-[id number]-svhzprm diastolic heart failure. 3. Anemia. 4. Hypertension. Metoprolol IV as needed. 5. Continue all supportive measures. MD AL Ndiaye/MODL /[id number] MTDKathie
[2020-06-07] MEDS: ALBUMIN 25% 12.5GM 50ML 100 ML IV SCH ×2 (02:00→06:00)
[2020-06-07] MEDS: MIDAZOLAM HCL 5MG/ML 10ML VIAL 100 ML IV PRN ×2 (03:00→22:00)
--- NOTE | 2020-06-07 03:00 | NUR ---
Pt was washed, absorbant pad changed, jimenez shaved down, wounds on ears and cheeks cleansed, and PICC line dressing changed. Pt is saturating at 98-100%. Vent Settings: 95%/PEEP12/28RR, Pressure Control 26 Pt has a large lump at the midline of throat and a large lump un lower left cheek. Will report findings to dayshift. Pt's levophed was titrated down from 10mcg/min to off since starting it at 2200.
[2020-06-07] MEDS: FENTANYL 2000MCG/NS 250 250 ML IV PRN ×2 (05:00→20:11)
[2020-06-07 05:34] LABS: BASOPHILS # (AUTO) 0.1 (0.0-0.1); BASOPHILS % 0.5 % (0.0-1.0); EOSINOPHILS # (AUTO) 0.9 (0.0-0.4); EOSINOPHILS % 4.5 % (0.0-6.0); HEMATOCRIT 27.4 % (38.2-49.6); LYMPHOCYTES % 9.8 % (18.0-39.1); MEAN CORPUSCULAR HEMOGLOBIN 28.6 pg (28-32); MEAN CORPUSCULAR HGB CONC 29.2 g/dL (31-35); MEAN CORPUSCULAR VOLUME 97.9 fL (81-99); MONOCYTES # (AUTO) 1.6 (0.2-0.8); MONOCYTES % 7.8 % (4.4-11.3); NEUTROPHILS # (AUTO) 15.1 (2.1-6.9); NEUTROPHILS % 74.1 % (38.7-80.0); PLATELET COUNT 255 x10e3/uL (140-360); RED CELL DISTRIBUTION WIDTH 15.4 % (11.7-14.4)
[2020-06-07 06:02] LABS: ALANINE AMINOTRANSFERASE 19 IU/L (0-55); ALBUMIN 3.3 g/dL (3.5-5.0); ALBUMIN/GLOBULIN RATIO 0.9 (0.8-2.0); ALKALINE PHOSPHATASE 60 IU/L (40-150); ANION GAP 14.7 mmol/L (8-16); BLOOD UREA NITROGEN 35 mg/dL (7-26); BUN/CREATININE RATIO 51 (6-25); CALCIUM 9.1 mg/dL (8.4-10.2); CARBON DIOXIDE 37 mmol/L (22-29); CHLORIDE 102 mmol/L (98-107); CREATININE, SERUM 0.69 mg/dL (0.72-1.25); EST GLOMERULAR FILTRATION RATE > 60 ML/MIN (60-); GLUCOSE 113 mg/dL (74-118); POTASSIUM 3.7 mmol/L (3.5-5.1); SODIUM 150 mmol/L (136-145)
[2020-06-07 07:28] LABS: EOSINOPHILS % (MANUAL) 2 % (0-7); HYPOCHROMASIA SLIGHT; LYMPHOCYTES % (MANUAL) 7 % (19-48); MONOCYTES % (MANUAL) 4 % (3.4-9.0); NEUTROPHILS % (MANUAL) 87 % (40-74); PLATELET ESTIMATE ADEQUATE
[2020-06-07 07:29] LABS: ANISOCYTOSIS SLIGHT; RBC MORPHOLOGY COMMENT ABNORMAL
[2020-06-07 07:30] LABS: PLATELET MORPHOLOGY COMMENT FEW EDTA CLUMPING
[2020-06-07 07:31] LABS: LARGE PLATELETS FEW
[2020-06-07 07:46] LABS: ABG HCO3 39 mmol/L (22-26); ABG PCO2 80 mmHg (35-45); ABG PO2 112 mmHg (80-105); ABG TCO2 42
[2020-06-07] MEDS: VANCOMYCIN 1GM/NS 250 ML 250 ML IV SCH ×2 (07:48→20:10)
[2020-06-07] MEDS: FAMOTIDINE 20 MG/2 ML VIAL IV SCH ×2 (07:48→17:19)
[2020-06-07] MEDS: POTASSIUM CHLORIDE 20MEQ/15ML UDC NG SCH ×2 (07:49→17:19)
[2020-06-07] MEDS: ENOXAPARIN SOD INJ 40 MG/0.4 ML SYR SC SCH ×2 (07:49→20:10)
[2020-06-07] MEDS: BALSAM PERU/CASTOR OIL 60 GM OINT...G. TP SCH (07:49)
[2020-06-07] MEDS: LACTULOSE SYRUP 20 GM/30 ML UDC PO SCH (07:49)
[2020-06-07] MEDS ORDERED: CISATRACURIUM BESYLATE 200 MG in SODIUM CHLORIDE 0.9% 250ML 180 ML IV PRN (09:45)
--- NOTE | 2020-06-07 09:49 | Progress Note ---
DATE: 06/07/2020 Cardiology Progress Note SUBJECTIVE: Mr. Bob remains intubated and sedated. OBJECTIVE: VITAL SIGNS: Temperature 97.2, heart rate 99, blood pressure 149/56, respiratory rate 28, and O2 saturation 100%. GENERAL: Intubated and sedated. NECK: Supple. CHEST: With rales and decreased breath sounds. CARDIOVASCULAR: Regular rate and rhythm. Normal S1 and S2. ABDOMEN: Soft. EXTREMITIES: Trace edema. Normothermic. CARDIOVASCULAR MEDICATIONS: Reviewed. Metoprolol tartrate 5 q.8 hours IV, hydralazine 10 q.4 hours IV, potassium chloride 20 mEq b.i.d., and Lovenox 40 q.12 hours subcutaneous. STUDIES: Reviewed. Sodium 150, potassium 3.7, chloride 102, bicarbonate 37, BUN 35, creatinine 0.69, and glucose 113. White blood cells 20, hemoglobin 8, and platelets 255. PT 18.7, PTT 30.9, and INR 1.4. AST 25, ALT 19, and alkaline phosphatase 60. ASSESSMENT AND PLAN: A 65-year-old man with history of COVID-19 infection, community-acquired pneumonia, acute respiratory failure, hypertension, kbnyt-[id number] diastolic heart failure, and anemia. RECOMMEND: Continue ventilatory support. Antihypertensives p.r.n. DVT prophylaxis. MD CHRISTINE Bal/MIKE /[id number]
--- NOTE | 2020-06-07 09:49 | Consultation ---
DATE OF CONSULTATION: Pulmonary Critical Care Consultation HISTORY OF PRESENT ILLNESS: The patient is currently afebrile. His endotracheal tube was changed yesterday. He remains on a pressure control at a rate of 36 with a PEEP of 10 and a pressure above PEEP of 30. His FiO2 is set at 85%. His saturations are 91 to 92%. PHYSICAL EXAMINATION: VITAL SIGNS: The blood pressure is 149/56, saturation is 100%. He is on the current ventilator settings as noted above. HEENT: Shows no facial swelling or erythema. The patient has an oral endotracheal tube. LYMPHATIC: Shows no submandibular, cervical, or supraclavicular adenopathy. CARDIAC: Reveals regular rate and rhythm with normal S1 and S2. LUNGS: Auscultation of lungs reveals rhonchorous breath sounds bilaterally. There is no wheezing. ABDOMEN: Soft and nontender. There is no rebound or guarding. EXTREMITIES: Shows no leg edema or calf tenderness. There is no cyanosis or clubbing. SKIN: Shows no rashes. LABORATORY DATA: The blood gas is 7.3, 80, 112, and 39. Sodium is 150 and the BUN to creatinine ratio is 35 and 0.7. Albumin is 3.3. IMPRESSION: 1. Acute respiratory failure. 2. Viral pneumonia and COVID-19 infection. 3. Diabetes. 4. Anemia secondary to chronic blood loss. 5. Hypokalemia. 6. Hypertension. PLAN: 1. Continue current ventilator settings. 2. Place in prone position later today. 3. Stop rocuronium and begin Nimbex. 4. Continue Versed and fentanyl. 5. Continue enteral feedings. 6. Case discussed with daughter. 7. Case discussed with nightshift nursing, dayshift nursing, Respiratory, Cardiology, Infectious Disease, and Internal Medicine. Greater than 35 minutes in direct critical care time. Manuel Quigley MD [facility]/MODL /[id number]
--- NOTE | 2020-06-07 14:44 | NUR ---
Infectious disease progress note Zachary Patient seen and examined chart reviewed. Peripheral patient remains intubated and sedated that day #35 today. Discussed with the medical team at length. he patient is currently afebrile. His endotracheal tube was changed yesterday. He remains on a pressure control at a rate of 36 with a PEEP of 10 and a pressure above PEEP of 30. His FiO2 is set at 85%. His saturations are 91 to 92%. PHYSICAL EXAMINATION: VITAL SIGNS: The blood pressure is 149/56, saturation is 100%. He is on the current ventilator settings as noted above. HEENT: Shows no facial swelling or erythema. The patient has an oral endotracheal tube. LYMPHATIC: Shows no submandibular, cervical, or supraclavicular adenopathy. CARDIAC: Reveals regular rate and rhythm with normal S1 and S2. LUNGS: Auscultation of lungs reveals rhonchorous breath sounds bilaterally. There is no wheezing. ABDOMEN: Soft and nontender. There is no rebound or guarding. EXTREMITIES: Shows no leg edema or calf tenderness. There is no cyanosis or clubbing. SKIN: Shows no rashes. LABORATORY DATA: The blood gas is 7.3, 80, 112, and 39. Sodium is 150 and the BUN to creatinine ratio is 35 and 0.7. Albumin is 3.3. IMPRESSION: 1. Acute respiratory failure. 2. Viral pneumonia and COVID-19 infection. 3. Diabetes. 4. Anemia secondary to chronic blood loss. 5. Hypokalemia. 6. Hypertension. to continue with the antibiotic as ordered continue with supportive care as ordered please refer to orders in the chart
--- NOTE | 2020-06-07 15:31 | Progress Note ---
DATE: 06/07/2020 Renal Progress Note SUBJECTIVE: Events for the past 24 hours have been noted. The patient now is in the prone position. He remains on the ventilator. He is with high FiO2 concentration. PHYSICAL EXAMINATION: VITAL SIGNS: Blood pressure 117/46, pulse 99, and temperature 97.9. Intake and output last 24 hours, intake 2921, output 1174. Net fluid balance, positive 1746. GENERAL: The patient is prone right now. He is intubated. He is on a ventilator. He is sedated. CARDIOVASCULAR: Regular rate and rhythm. LUNGS: The patient is requiring 100% oxygen right now. Crackles and high-pitched squeals bilaterally. ABDOMEN: Decreased bowel sounds. EXTREMITIES: Trace edema of the feet and the arms. ABDOMEN: The patient has a positive NG tube. LABORATORY RESULTS: Sodium 150, potassium 3.7, chloride 102, bicarbonate 37, BUN and creatinine 35 and 0.69 respectively. Hematocrit 27. IMPRESSION/PLAN: 1. COVID-19 infection pneumonia. 2. Respiratory failure. 3. Hypernatremia. 4. Normal renal function. PLAN: The patient was on a Lasix drip, but we stopped and he is now in a positive fluid balance, but I think it is okay. I do not want to restart the Lasix right now (sodium is 150). He is getting free water at 100 mL every 4 hours. I will increase that to 200 every 4 hours. The patient's prognosis seems quite dismal at this time. Ather MD LAWRENCE Singh/SHIRLEYL /[id number]
[2020-06-07 15:45] LABS: ABG HCO3 39 mmol/L (22-26); ABG PCO2 74 mmHg (35-45); ABG PH 7.32 (7.35-7.45); ABG PO2 52 mmHg (80-105); ABG TCO2 41
[2020-06-07] MEDS ORDERED: BISACODYL 10 MG SUPP PR ONE (17:30)
--- NOTE | 2020-06-07 18:40 | NUR ---
Pt sats dropped to 85% at 1400. New order to reposition patient to prone position. Patient repositioned. Patient tolerated repositioning fairly well and sats began to increase to 90's within 5 mins. New orders this shift include to discontinue jet and start patient on nimbex for better syncing. New order for suppository for constipation. Suppository given
--- NOTE | 2020-06-07 20:58 | Progress Note ---
DATE: 06/07/2020 CONSULTANTS: 1. Dr. Quigley, Pulmonology. 2. Dr. Robertson, Infectious Disease. 3. Dr. Neumann, Cardiology. 4. Dr. Singh, Renal. SUBJECTIVE: Remains intubated and sedated in supine position. OBJECTIVE: VITAL SIGNS: Temperature 97.9, pulse is 99, respirations 28, blood pressure 136/55, pulse ox is 92% on the vent. GENERAL: Sedated and intubated. HEENT: Normocephalic. CARDIOVASCULAR: Regular rate and rhythm. LUNGS: Decreased breath sounds. ABDOMEN: Soft, obese. NEURO: Sedated. : Vizcarra. MUSCULOSKELETAL: Trace edema in the lower extremities. SKIN: Dry. LABORATORY DATA: WBC 20.39, hemoglobin 8.0, hematocrit 27.4, platelet is 255. Sodium 150, potassium 3.7, CO2 37, BUN is 35, creatinine is 0.69, estimated GFR is greater than 60. AST 25, ALT 19, alkaline phosphate 60. ABG; pH 7.32, pCO2 74, PO2 52, bicarb 39. IMPRESSION AND PLAN: 1. Acute respiratory failure due to coronavirus-2019 pneumonia. Remains sedated and intubated, vent management per Dr. Quigley. Blood culture is contaminated. Continue vancomycin per ID. WBC 20. 2. Chronic anemia. Hemoglobin is 8 today. We will continue to monitor closely. 3. Hypokalemia. Replaced. 4. Hypertension. We will treat with metoprolol as needed. 5. Generalized edema. Continue diuretics per Renal. 6. Morbid obesity. 7. Deep vein thrombosis prophylaxis. Lovenox 40 mg b.i.d. subcu. Plan is to continue current treatment. We will repeat labs in a.m. Dictated by MARAH Castro Alicja Rodriguez MD MY/MODL /[id number]
[2020-06-08] VITALS (18 sets, daily range): BP systolic 118–141; BP diastolic 47–68
[2020-06-08] MEDS: FENTANYL 2000MCG/NS 250 250 ML IV PRN ×2 (03:47→21:28)
[2020-06-08] MEDS: MIDAZOLAM HCL 5MG/ML 10ML VIAL 100 ML IV PRN ×2 (03:48→22:13)
[2020-06-08 05:52] LABS: BASOPHILS # (AUTO) 0.1 (0.0-0.1); BASOPHILS % 0.4 % (0.0-1.0); EOSINOPHILS # (AUTO) 1.6 (0.0-0.4); EOSINOPHILS % 7.9 % (0.0-6.0); HEMATOCRIT 28.2 % (38.2-49.6); HEMOGLOBIN 7.9 g/dL (14.0-18.0); MEAN CORPUSCULAR HEMOGLOBIN 27.9 pg (28-32); MEAN CORPUSCULAR VOLUME 99.6 fL (81-99); MONOCYTES # (AUTO) 1.2 (0.2-0.8); MONOCYTES % 6.2 % (4.4-11.3); NEUTROPHILS # (AUTO) 14.4 (2.1-6.9); NEUTROPHILS % 72.2 % (38.7-80.0); PLATELET COUNT 232 x10e3/uL (140-360); RED BLOOD COUNT 2.83 x10e6/uL (4.3-5.7); RED CELL DISTRIBUTION WIDTH 15.6 % (11.7-14.4)
[2020-06-08 06:18] LABS: ALANINE AMINOTRANSFERASE 17 IU/L (0-55); ALBUMIN 2.6 g/dL (3.5-5.0); ALBUMIN/GLOBULIN RATIO 0.7 (0.8-2.0); ALKALINE PHOSPHATASE 57 IU/L (40-150); ANION GAP 12.1 mmol/L (8-16); BLOOD UREA NITROGEN 32 mg/dL (7-26); BUN/CREATININE RATIO 57 (6-25); CALCIUM 8.9 mg/dL (8.4-10.2); CARBON DIOXIDE 37 mmol/L (22-29); CHLORIDE 107 mmol/L (98-107); CREATININE, SERUM 0.56 mg/dL (0.72-1.25); EST GLOMERULAR FILTRATION RATE > 60 ML/MIN (60-); GLUCOSE 127 mg/dL (74-118); POTASSIUM 4.1 mmol/L (3.5-5.1); SODIUM 152 mmol/L (136-145)
--- NOTE | 2020-06-08 06:20 | NUR ---
Pt has been proned since 1500, 06/07/2020. ET remains at 24@teeth. Pt has been synchronized with the vent all shift as he did the previous shift. Pt has saturated between 98-100% on monitor for half the shift. Vent: 100%/08/16RR DTIs on bilateral ears and cheeks have been cleansed and dressed. New absorbant pad placed after moderate/soft/brown BM.
[2020-06-08 07:47] LABS: ABG HCO3 40 mmol/L (22-26); ABG PCO2 92 mmHg (35-45); ABG PH 7.25 (7.35-7.45); ABG PO2 99 mmHg (80-105); ABG TCO2 43
[2020-06-08] MEDS: VANCOMYCIN 1GM/NS 250 ML 250 ML IV SCH (09:26)
[2020-06-08] MEDS: FAMOTIDINE 20 MG/2 ML VIAL IV SCH ×2 (09:26→18:15)
[2020-06-08] MEDS: ENOXAPARIN SOD INJ 40 MG/0.4 ML SYR SC SCH ×2 (09:27→21:27)
[2020-06-08] MEDS: LACTULOSE SYRUP 20 GM/30 ML UDC PO SCH (09:27)
[2020-06-08] MEDS: POTASSIUM CHLORIDE 20MEQ/15ML UDC NG SCH ×2 (09:27→18:15)
[2020-06-08] MEDS: BALSAM PERU/CASTOR OIL 60 GM OINT...G. TP SCH (09:27)
--- NOTE | 2020-06-08 13:53 | Progress Note ---
DATE: 06/08/2020 Cardiology Progress Note SUBJECTIVE: Mr. Bob remains intubated and sedated. OBJECTIVE: VITAL SIGNS: On vent support, FiO2 100%, PEEP of 10, temperature 97.4, heart rate 104, blood pressure 135/68, respiratory rate 28 with O2 saturation 100%. GENERAL: Intubated and sedated. NECK: Supple. CHEST: With rales and decreased breath sounds. CARDIOVASCULAR: Regular rate and rhythm. Normal S1, S2. ABDOMEN: Soft. EXTREMITIES: No edema. CARDIOVASCULAR MEDICATIONS: Reviewed. Lovenox 40 q.12 hours off pressors. STUDIES: Reviewed. Sodium 152, potassium 4.1, chloride 107, bicarbonate 37, BUN 32, creatinine 0.56, and glucose 127. White blood cells 19.9, hemoglobin 10.9, platelets 232. PT 18.7, PTT 30.9, INR 1.46. AST 27, ALT 17, alkaline phosphatase 57, total bilirubin 0.5. ASSESSMENT AND PLAN: 1. A 65-year-old man presents with COVID-19 infection, community-acquired pneumonia, acute on chronic diastolic heart failure, history of hypertension, anemia. Recommend holding diuretics given elevated BUN to creatinine ratio and contraction alkalosis. 2. Continue Lovenox. 3. Monitor H and H. 4. Blood pressure at goal. Mario Harris MD [employer]/SHIRLEYL /[id number]
--- NOTE | 2020-06-08 15:14 | Diagnostic Imaging Report ---
TECHNIQUE: Frontal view of the chest. INDICATION: ^resp failure ^[id number] ^1450 COMPARISON: 06/06/2020 DISCUSSION: Limited evaluation due to portable technique. Lines and hardware: Endotracheal tube appears to be retracted with tip now terminating 7.6 cm above the cadence at the level of the clavicular heads. Enteric tube is seen coursing inferiorly out of the field of view. Left PICC is stable. Heart and mediastinum: Stable. Lungs and pleura: Stable hypoexpansion of the lungs with diffuse bilateral interstitial and alveolar airspace opacities. Negative for large effusion or pneumothorax. Soft tissues and bones: No acute abnormality. IMPRESSION: 1. Endotracheal tube is slightly retracted now approximately 7.6 cm above the cadence at the level of the clavicular heads. 2. Stable bilateral interstitial and alveolar airspace opacities and hypoexpansion of the lungs. Signed by: Ced Duncan MD on 06/08/2020 3:10 PM
[2020-06-08] MEDS ORDERED: DEXTROSE 5% 1,000 ML IV SCH (15:30)
--- NOTE | 2020-06-08 17:49 | Progress Note ---
DATE: 06/08/2020 Renal Progress Note SUBJECTIVE: Events about 24 hours have been noted. The patient remains intubated. He remains on the ventilator. He is sedated. PHYSICAL EXAMINATION: GENERAL: The patient is in the prone position. VITAL SIGNS: Blood pressure 135/68, pulse 104, respiration 28, and the patient is on 100% oxygen. CARDIOVASCULAR: Tachycardia. LUNGS: Decreased breath sounds and a high-pitched wheals bilaterally. ABDOMEN: Decreased bowel sounds. EXTREMITIES: The patient has edema of his face is somewhat decreased. Also the edema of the feet is somewhat decreased. LABORATORY RESULTS: Sodium 152, pounds 4.1, chloride 107, bicarbonate 37, BUN and creatinine and 32 and 0.56 respectively. Hemoglobin and hematocrit 8 and 28. IMPRESSION: 1. COVID pneumonia. 2. COVID infection. 3. Respiratory failure. 4. Total body water expansion. The patient is now in a positive fluid balance. He is not on the Lasix drip anymore, but I agree . 5. Hypernatremia. PLAN: The patient was taken off the Lasix drip because of the sodium going up and I agree with this. His sodium is still going up yesterday. I increased his free water from 100 mL to 200 mL every 4 hours, but despite that his sodium is still going up, so I will go ahead and start him on some hydrochlorothiazide 25 mg orally once a day and also I will go ahead and give him just 1 L of D5 water, hopefully that will correct the some hypernatremia. The patient is still requiring 100% oxygen. The patient's prognosis is very dismal. Ather MD LAWRENCE Singh/MODL /[id number]
--- NOTE | 2020-06-08 18:54 | Progress Note ---
DATE: 06/08/2020 SUBJECTIVE: Mr. Bob is day #36 of hospitalization. Remains in Intensive Care Unit. PHYSICAL EXAMINATION: GENERAL: The patient is intubated and sedated. HEENT: He is not icteric. NECK: Supple. CHEST: Few crackles, bilateral. HEART: S1-S2. ABDOMEN: Soft. Bowel sounds present. EXTREMITIES: No edema. SKIN: No rash. LABORATORY DATA: Reviewed. Chart reviewed. IMPRESSION: Respiratory failure, coronavirus disease-19, and diabetes mellitus. The patient's prognosis remains poor. He is afebrile. He is currently on Lovenox. He is on vancomycin, which was started on June 05. His blood cultures showed coag-negative staph, probably contamination. We can discontinue his vancomycin. Continue with supportive care. Prognosis is extremely guarded. We will follow. MD JOSE Garay/MIKE /[id number]
--- NOTE | 2020-06-08 21:15 | Progress Note ---
DATE: 06/08/2020 CONSULTANTS: 1. Dr. Quigley with Pulmonology. 2. Dr. Robertson with Infectious Disease. 3. Dr. Neumann with Cardiology. 4. Dr. Archer with Renal. SUBJECTIVE: The patient remains intubated and sedated, in supine position. No changes overnight. OBJECTIVE: VITAL SIGNS: Temperature 97.4, pulse is 104, respirations 28, blood pressure 135/68, and saturation 100% on the vent. GENERAL: Sedated and intubated. HEENT: Normocephalic. CARDIOVASCULAR: Regular rate and rhythm. LUNGS: Decreased breath sounds. ABDOMEN: Soft, obese. NEURO: Sedated. MUSCULOSKELETAL: Trace edema in the lower extremities. SKIN: Dry. : Vizcarra. LABORATORY DATA: WBC 19.94, hemoglobin 7.9, hematocrit 28.2, and platelets 232. Sodium 152, potassium 4.1. CO2 of 37. BUN 32, creatinine 0.56. Estimated GFR greater than 60. Glucose 127, AST 27, ALT 17. Vanc trough 7.6, pH of 7.25, pCO2 of 92, PO2 of 99, bicarb 40, O2 sat 99.0. IMAGING: Chest x-ray, stable bilateral interstitial and alveolar airspace opacities and hypo-expansion of the lungs. IMPRESSION: 1. Acute respiratory failure due to Coronavirus-2019 pneumonia. Remains intubated and sedated, vent management per marshmallow machine operator. Vancomycin per Infectious Disease. Blood culture is contaminated. WBC trending. 2. Chronic anemia. Hemoglobin is 7.9. We will continue to monitor closely. 3. Hypokalemia, replaced. 4. Hypertension. We will treat as needed. 5. Generalized edema. Diuretics per Renal. 6. Morbid obesity. 7. Deep vein thrombosis prophylaxis. Lovenox 40 mg b.i.d. subcu. PLAN: To continue current treatment. We will repeat labs in a.m. and further recommendations to follow. Dictated by MARAH Castro Alicja Rodriguez MD MY/MODL /[id number]
--- NOTE | 2020-06-08 22:00 | NUR ---
Current Vent Settings: Pressure Support@26 100%/10Peep/28RR Dr. Quigley was notified of ABG from AM: 7.24pH/91CO2/151PO2/39HCO3 Dr. Quigley stated that vent settings should be: Pressure Support@26, 90%/RR32/10PEEP. Vent settings updated and oral care performed. Pt remains proned (since 1500 06/07)
[2020-06-09] VITALS (26 sets, daily range): BP systolic 113–151; BP diastolic 45–72
[2020-06-09] MEDS: FENTANYL 2000MCG/NS 250 250 ML IV PRN ×3 (03:35→18:18)
[2020-06-09] MEDS: MIDAZOLAM HCL 5MG/ML 10ML VIAL 100 ML IV PRN ×3 (04:30→17:07)
[2020-06-09 04:52] LABS: BASOPHILS # (AUTO) 0.1 (0.0-0.1); BASOPHILS % 0.5 % (0.0-1.0); EOSINOPHILS # (AUTO) 1.6 (0.0-0.4); EOSINOPHILS % 8.3 % (0.0-6.0); HEMATOCRIT 25.8 % (38.2-49.6); HEMOGLOBIN 7.2 g/dL (14.0-18.0); LYMPHOCYTES # (AUTO) 1.5 (1.0-3.2); MEAN CORPUSCULAR HGB CONC 27.9 g/dL (31-35); MEAN CORPUSCULAR VOLUME 100.4 fL (81-99); MONOCYTES # (AUTO) 1.1 (0.2-0.8); MONOCYTES % 5.6 % (4.4-11.3); NEUTROPHILS % 73.7 % (38.7-80.0); PLATELET COUNT 238 x10e3/uL (140-360); RED BLOOD COUNT 2.57 x10e6/uL (4.3-5.7); RED CELL DISTRIBUTION WIDTH 15.3 % (11.7-14.4)
[2020-06-09 05:09] LABS: ALANINE AMINOTRANSFERASE 17 IU/L (0-55); ALBUMIN 2.3 g/dL (3.5-5.0); ALBUMIN/GLOBULIN RATIO 0.6 (0.8-2.0); ALKALINE PHOSPHATASE 58 IU/L (40-150); ANION GAP 11.5 mmol/L (8-16); BLOOD UREA NITROGEN 32 mg/dL (7-26); BUN/CREATININE RATIO 57 (6-25); CALCIUM 8.6 mg/dL (8.4-10.2); CARBON DIOXIDE 36 mmol/L (22-29); CHLORIDE 105 mmol/L (98-107); CREATININE, SERUM 0.56 mg/dL (0.72-1.25); EST GLOMERULAR FILTRATION RATE > 60 ML/MIN (60-); GLUCOSE 160 mg/dL (74-118); POTASSIUM 4.5 mmol/L (3.5-5.1); SODIUM 148 mmol/L (136-145)
[2020-06-09] MEDS: LACTULOSE SYRUP 20 GM/30 ML UDC PO SCH (09:14)
[2020-06-09] MEDS: FAMOTIDINE 20 MG/2 ML VIAL IV SCH ×2 (09:14→17:06)
[2020-06-09] MEDS: BALSAM PERU/CASTOR OIL 60 GM OINT...G. TP SCH (09:14)
[2020-06-09] MEDS: ENOXAPARIN SOD INJ 40 MG/0.4 ML SYR SC SCH ×2 (09:14→20:51)
[2020-06-09] MEDS: HYDROCHLOROTHIAZIDE 25 MG TAB PO SCH (09:19)
--- NOTE | 2020-06-09 09:22 | Progress Note ---
DATE: Pulmonary Critical Care Progress Note SUBJECTIVE: The patient has been in a prone position overnight. His Lasix drip is on hold. He is receiving some additional free water to correct his high sodium. PHYSICAL EXAMINATION: VITAL SIGNS: The blood pressure is 127/49 and saturation is 97%. Pulse is 103. HEENT: Shows no facial swelling or erythema. LYMPHATIC: Shows no submandibular, cervical, or supraclavicular adenopathy. CARDIAC: Reveals regular rate and rhythm with normal S1 and S2. LUNGS: Auscultation of lungs reveals rhonchorous breath sounds bilaterally. There is no wheezing. ABDOMEN: Soft and nontender. There is no rebound or guarding. EXTREMITIES: Shows no leg edema or calf tenderness. There is no cyanosis or clubbing. SKIN: Shows no rashes. NEUROLOGICAL: Shows no focal abnormalities. LABORATORY DATA: White blood cell count is 18.9 and the hemoglobin is 7.2. The platelet count is 238. The BUN to creatinine ratio is 32 to 0.56. Sodium is 148. Albumin is 2.3. RADIOGRAPHIC DATA: Chest x-ray shows bilateral infiltrates. IMPRESSION: 1. Acute respiratory failure. 2. Viral pneumonia and COVID-19 infection. 3. Hypernatremia. 4. Diabetes. 5. Anemia secondary to chronic blood loss. 6. Hypertension. PLAN: 1. Place the patient back in the supine position. 2. Pressure control above PEEP has been increased to correct for respiratory acidosis. 3. Continue Nimbex along with fentanyl and Versed. 4. Continue enteral feedings. Greater than 35 minutes in direct critical care time. Manuel Quigley MD [facility]/MODL /[id number]
[2020-06-09 10:08] LABS: ABG PCO2 84 mmHg (35-45); ABG PH 7.27 (7.35-7.45); ABG PO2 87 mmHg (80-105)
[2020-06-09 10:09] LABS: ABG HCO3 39 mmol/L (22-26); ABG TCO2 41
[2020-06-09] MEDS: CISATRACURIUM BESYLATE 200 MG in SODIUM CHLORIDE 0.9% 250ML 100 ML IV PRN (11:43)
--- NOTE | 2020-06-09 13:47 | NUR ---
WOUND CARE CONSULT 65 YO MALE HX OF RESP FAIL BILATERAL SACRO GLUTEAL DTI HERMAN 10 0N STRICT PUP STATUS AND INTERVENTIONS SKIN ASSESSMENT COMPLETE PATIENT PRESENTS WITH DTI PRESENTATION TO SACRAL STAGE 2 ULCERATION RECOMMENDATIONS: NURSING TO CONTINUE TO MONITOR PATIENT AND KEEP SKIN CLEAN AND FREE FROM LOOSE STOOL OR IRRITATING MOISTURE AND CONTINUE TO FOLLOW MODERATE PUP INTERVENTIONS NURSING TO CONTINUE TO GET PATIENT OUT OF BED FOR MEALS AND MUCH TOLERATED NURSING TO CONTINUE TO CLEAN ULCERATION WITH NORMAL SALINE DAILY AND APPLY VENELEX OINTMENT TO .. AND COVER WITH ALLEVYN FOAM DRESSING Addendum: 06/09/20 at 1351 by Fabricio Brown RN Amended: Links added.
--- NOTE | 2020-06-09 13:55 | NUR ---
patient seen and examined chart reviewed the patient remains in intensive care unit intubated and sedated. Apparently this is infectious disease progress note for June 09, 2020. Case was discussed with the medical team critical care patient seen and examined chart reviewed medication list reviewed A data reviewed. he patient has been in a prone position overnight. His Lasix drip is on hold. He is receiving some additional free water to correct his high sodium. PHYSICAL EXAMINATION: VITAL SIGNS: The blood pressure is 127/49 and saturation is 97%. Pulse is 103. HEENT: Shows no facial swelling or erythema. LYMPHATIC: Shows no submandibular, cervical, or supraclavicular adenopathy. CARDIAC: Reveals regular rate and rhythm with normal S1 and S2. LUNGS: Auscultation of lungs reveals rhonchorous breath sounds bilaterally. There is no wheezing. ABDOMEN: Soft and nontender. There is no rebound or guarding. EXTREMITIES: Shows no leg edema or calf tenderness. There is no cyanosis or clubbing. SKIN: Shows no rashes. NEUROLOGICAL: Shows no focal abnormalities. LABORATORY DATA: White blood cell count is 18.9 and the hemoglobin is 7.2. The platelet count is 238. The BUN to creatinine ratio is 32 to 0.56. Sodium is 148. Albumin is 2.3. RADIOGRAPHIC DATA: Chest x-ray shows bilateral infiltrates. IMPRESSION: 1. Acute respiratory failure. 2. Viral pneumonia and COVID-19 infection. 3. Hypernatremia. 4. Diabetes. 5. Anemia secondary to chronic blood loss. continue supportive care as ordered please refer to my orders in chart. Recheck CBC recheck in panel culture was noted Prognosis extremely poor
[2020-06-09] MEDS ORDERED: ALBUMIN 25% 25GM 100ML 0.25 GM/ML BTL IV ONE (14:30)
[2020-06-09] MEDS ORDERED: ALBUMIN 25% 25GM 100ML 100 ML IV ONE (15:00)
--- NOTE | 2020-06-09 17:47 | NUR ---
Nutrition Intervention Note RD Recommendation(s) for Physician: -Continue Pivot 1.5 and increase to goal rate of 45 ml/hr (to provide 1620 kcal and 101 gm protein). Pt may be fed when in prone position at goal rate in reverse Trendelenburg with HOB at 10-25 degrees. -Continue water flushes of 50 ml q 4 hrs per current MD order. Plan of Care: RD following, monitoring for tolerance and adequacy, tube feed recommendation Nutrition reason for involvement: follow up RD Assessment 06/09: Follow up. Pt remains intubated and sedated. It is documented that pts tube feed is at 35 mL/hr. It is noted that pt has been in the prone position overnight. Will continue to monitor 06/06: Follow up. Pt remains intubated, sedated, and paralyzed. No pressor support. Pt continues on TF of Vital HP, infusing at 20 ml/hr at time of visit- RN unavailable to discuss rate. Pt not meeting needs with current TF > [address] Quigley regarding TF and goal rate, MD amenable to continuing goal rate while in prone position as it is not contraindicated. RD to modify TF order per MD. Chart reviewed. Will continue to monitor. 06/02: Follow up. Chart reviewed. Pt remains intubated and sedated. Pt is receiving Vital HP @ 30 mL/hr at this time - not meeting nutritional needs. Current recommendations remain appropriate. Will continue to monitor. 05/29: Follow up. Chart reviewed. Pt remains intubated and sedated. MD note indicates that pt remains in the prone position. Pt is receiving Vital HP @ 20 mL/hr at this time. Current recommendations remain appropriate. Will continue to monitor. 05/24: Follow up. Pt remains intubated and sedated, requiring to be proned- no paralytic currently. Vital HP infusing at goal rate, providing >75% of estimated needs. Chart reviewed. Current TF rec's remain appropriate. Will continue to monitor. 05/22: Follow up. Pt remains intubated, paralyzed, and sedated. TF documented as Glucerna 1.2 at 30 ml/hr currently, not meeting needs. Pt requiring proning at times. Pt with chest tubes to output. Current TF rec's remain appropriate. Chart reviewed. Will continue to monitor. 05/17: Follow up. Chart reviewed. Pt remains intubated. RN reports that pts tube feeding is at 10 mL/hr at this time and pt is in the prone position. Current recommendations remain appropriate. Will continue to monitor. 05/12: Pt was intubated yesterday and tube feeding was ordered. It is recorded that pt consumed 25% of breakfast on 05/10 and was previously consuming 50-100% of meals. Recommendations provided. Will continue to monitor. 05/09: 65 YOM admitted for hypoxia and pneumonia due to COVID-19. Pt assessed today for LOS. Attempted to call pt's room x 2, no answer- unable to obtain hx at this time. No wt loss or poor intake indicated at admit per MD notes. Pt with 50-100% intake since admit. Pt currently on Vapotherm per current respiratory status. Labs and meds reviewed. LBM 05/08, skin intact. Chart reviewed. Will continue to monitor. Principal Problems/Diagnoses: hypoxia, pneumonia due to COVID-19 PMH: HTN, HLD GI: round, soft abdomen, last recorded BM 06/08 Skin: stage 2 pressure ulcer/suspected DTI left ear, stage 2 pressure ulcer bilateral cheek, stage 2 pressure ulcer lower urethral meatus Labs: 06/09: Na 148, K 4.5, BUN 32, Cr 0.56, Glu 160 06/06: Na 147, K 3.3, BUN 22, Cr 0.62, Gluc 135, Ca 9 06/02: Na 140, K 3.5, BUN 24, Cr 0.66, Glu 116 05/29: Na 141, K 3.9, BUN 24, Cr 0.66, Glu 87, Ca 9.5 05/24: Na 147, K 3, BUN 27, Cr 0.61, Gluc 100, POC Gluc 123-126, Ca 6.3, Mg 1.5 05/22: Na 143, K 4.5, BUN 28, Cr 0.77, Gluc 122, POC Gluc 122-136 (05/17/20) Na 141, K 4.2, BUN 18, Cr 0.61, Glu 87, Ca 8.7 (05/12/20) Na 141, K 5.4, BUN 33, Cr 0.76, Glu 118, Ca 7.9 Meds: fentanyl, lactulose, pepcid, norepinephrine, lasix Ht: 66 inches Wt: 211 lbs (06/08) 212 lbs (06/06) 221 lbs (06/02) 246 lbs (05/28) 218 lbs (05/09) BMI: 35.2 using weight of 218 lbs IBW: 142 lbs Malnutrition Evaluation (06/09/20) The patient does not meet criteria for a specified degree of malnutrition at this time. Energy intake: pt is meeting >75% kcal and protein needs with current tube feed rate Weight loss: does not meet criteria- wt fluctuations since admit noted with no significant change from admit wt, likely fluid related Fat loss: none- ample skinfold thickness of upper arms, observed outside of pt room Muscle loss: none- shoulder round, observed outside of pt room Supporting Evidence: Fluid accumulation: trace edema in lower extremities Functional Status: unable to evaluate- pt intubated and sedated Nutrition Prescription (Diet Order): Pivot 1.5 @ goal of 45 mL/hr infusing at 35 mL/hr (provides 1260 kcal, 78 g protein) Estimated Nutritional Needs: 9911-8029 calories/day (22-25 kcal/kg IBW) 97-129 g protein/day (1.5-2 g pro/kg IBW) Diet Adequacy: Meeting >75% calorie and protein needs Tolerance: tolerating TF Diet Education Needs Assessment: Diet education is not indicated, pt is intubated Nutrition Care Level: high Nutrition Diagnosis: Inadequate oral intake related to acute respiratory failure/mechanical ventilation as evidenced by requiring enteral nutrition. Goal: Patient will meet 75-100% of estimated needs by follow up Progress: progressing Interventions: - Composition, Rate, Route Monitoring/Evaluation: -Total energy intake, Total protein intake, Formula/Solution, Weight change Signed: Ruth Kern, RD, LD
--- NOTE | 2020-06-09 19:04 | NUR ---
Patient placed in supine position at 1100. Per Dr. Neumann patient restarted on Lasix drip due to swelling. Wound care done to face, ear and sacral wounds.
--- NOTE | 2020-06-09 20:25 | Progress Note ---
DATE: 06/09/2020 Cardiology Progress Note SUBJECTIVE: Remained intubated and sedated. OBJECTIVE: VITAL SIGNS: Temperature 98 degrees, heart rate 99, blood pressure 144/52, respiratory rate 32, and O2 saturation 96%. GENERAL: Intubated and sedated. NECK: Supple. CHEST: Rales and decreased breath sounds. CARDIOVASCULAR: Regular rate and rhythm. Normal S1 and S2. ABDOMEN: Soft. Bowel sounds positive. EXTREMITIES: Trace edema. CARDIOVASCULAR MEDICATIONS: Reviewed. Hydrochlorothiazide 25 mg daily, Lovenox 40 mg subcutaneous q.12 hours, potassium chloride repletion, off pressors. STUDIES: Reviewed. Potassium 4.5, bicarbonate 36, BUN 32, creatinine 0.5, and glucose 160. White blood cells 18.9, hemoglobin 7.2, and platelets 238. INR 1.4. AST 23 and ALT 17. ASSESSMENT AND PLAN: A 65-year-old man presents with anemia, [id number] diastolic heart failure, hypertension, COVID-19 infection, acute respiratory failure, and community-acquired pneumonia. RECOMMEND: Resume diuretics and assess response. Monitor renal function closely and replete electrolytes as needed. Continue rest of cardiovascular medications. Mario Harris MD [facility]/MODSteven /[id number]
[2020-06-09] MEDS: FUROSEMIDE INJ 100 MG in SODIUM CHLORIDE 0.9% 100 ML 90 ML IV SCH (20:34)
[2020-06-09] MEDS ORDERED: FUROSEMIDE INJ 10 MG/ML 4 ML VIAL IV SCH (21:00)
--- NOTE | 2020-06-09 21:04 | NUR ---
PATIENT PLACED IN SUPINE POSITION AT 1100 BY PREVIOUS SHIFT. PT'S SPO2 85-86% WHEN THIS RN TOOK OVER WITHOUT IMPROVEMENT. FIO2 100% ON VENT. WITH RT PRESENT, PT WAS PRONED AT 2009. SPO2 AT THIS TIME IS 95%.
--- NOTE | 2020-06-09 21:16 | Progress Note ---
DATE: CONSULTANTS: 1. Dr. Quigley, interlibrary loan specialist. 2. Dr. Robertson with Infectious Disease. 3. Dr. Neumann, Cardiology. 4. Dr. Archer with Renal. SUBJECTIVE: The patient is intubated and sedated in prone position. After diuretics, increased bilateral lower extremity edema noted. OBJECTIVE: VITAL SIGNS: Temperature 98.1, pulse 94, respirations 32, blood pressure 118/46, pulse ox is 95, on the vent. GENERAL: Sedated and intubated. HEENT: Normocephalic. CARDIOVASCULAR: Regular rate and rhythm. LUNGS: Decreased breath sounds. ABDOMEN: Soft, obese. NEURO: Sedated. MUSCULOSKELETAL: Bilateral lower extremity edema noted. SKIN: Dry. Sacral pressure ulcer noted. : Vizcarra. LABORATORY DATA: WBC 18.92, hemoglobin 7.2, hematocrit 25.8, and platelets 238. Sodium 148, BUN 32, creatinine 0.56, estimated GFR greater than 60, glucose is 160, AST 23, ALT 17. ABG; pH 7.27, pCO2 of 84, PO2 of 87, bicarb 39, O2 saturation 94. IMPRESSION: 1. Acute respiratory failure due to coronavirus disease- 2019 pneumonia. Remains intubated and sedated in prone position. Vent management per interlibrary loan specialist. Also antibiotics per ID. 2. Leukocytosis. Blood culture was contaminated. Vancomycin per ID. 3. Chronic anemia. Hemoglobin is 7.2 today, we will continue to monitor closely. 4. Hypokalemia. Replace. 5. Hypertension. We will treat as needed. 6. Generalized edema. We will give Lasix IV b.i.d. and albumin x1. Renal on the case. 7. Morbid obesity. 8. Deep vein thrombosis prophylaxis, Lovenox. PLAN: To continue current treatment, we will repeat labs in the a.m. Dictated by Aditi Esqueda, MARAH Alicja Rodriguez MD MY/MODL /[id number]
[2020-06-10] VITALS (27 sets, daily range): BP systolic 81–164; BP diastolic 40–88
[2020-06-10] MEDS: MIDAZOLAM HCL 5MG/ML 10ML VIAL 100 ML IV PRN ×4 (00:05→18:20)
[2020-06-10 05:05] LABS: BASOPHILS # (AUTO) 0.1 (0.0-0.1); BASOPHILS % 0.3 % (0.0-1.0); EOSINOPHILS # (AUTO) 1.9 (0.0-0.4); HEMATOCRIT 25.3 % (38.2-49.6); HEMOGLOBIN 7.4 g/dL (14.0-18.0); LYMPHOCYTES # (AUTO) 1.8 (1.0-3.2); LYMPHOCYTES % 9.8 % (18.0-39.1); MEAN CORPUSCULAR HEMOGLOBIN 30.3 pg (28-32); MEAN CORPUSCULAR HGB CONC 29.2 g/dL (31-35); MEAN CORPUSCULAR VOLUME 103.7 fL (81-99); MONOCYTES # (AUTO) 0.9 (0.2-0.8); MONOCYTES % 5.1 % (4.4-11.3); NEUTROPHILS # (AUTO) 13.2 (2.1-6.9); PLATELET COUNT 189 x10e3/uL (140-360); RED BLOOD COUNT 2.44 x10e6/uL (4.3-5.7); RED CELL DISTRIBUTION WIDTH 15.8 % (11.7-14.4)
[2020-06-10 05:31] LABS: ALANINE AMINOTRANSFERASE 15 IU/L (0-55); ALBUMIN 2.5 g/dL (3.5-5.0); ALBUMIN/GLOBULIN RATIO 0.6 (0.8-2.0); ALKALINE PHOSPHATASE 68 IU/L (40-150); ANION GAP 10.7 mmol/L (8-16); BLOOD UREA NITROGEN 25 mg/dL (7-26); BUN/CREATININE RATIO 44 (6-25); CALCIUM 8.8 mg/dL (8.4-10.2); CARBON DIOXIDE 38 mmol/L (22-29); CHLORIDE 101 mmol/L (98-107); CREATININE, SERUM 0.57 mg/dL (0.72-1.25); EST GLOMERULAR FILTRATION RATE > 60 ML/MIN (60-); GLUCOSE 167 mg/dL (74-118); POTASSIUM 3.7 mmol/L (3.5-5.1); SODIUM 146 mmol/L (136-145)
[2020-06-10] MEDS: FENTANYL 2000MCG/NS 250 250 ML IV PRN ×3 (07:56→23:41)
[2020-06-10] MEDS: HYDROCHLOROTHIAZIDE 25 MG TAB PO SCH (08:01)
[2020-06-10] MEDS: FAMOTIDINE 20 MG/2 ML VIAL IV SCH ×2 (08:01→17:17)
[2020-06-10] MEDS: ENOXAPARIN SOD INJ 40 MG/0.4 ML SYR SC SCH (08:01)
[2020-06-10] MEDS: BALSAM PERU/CASTOR OIL 60 GM OINT...G. TP SCH (08:01)
[2020-06-10] MEDS: LACTULOSE SYRUP 20 GM/30 ML UDC PO SCH (08:01)
[2020-06-10] MEDS: CISATRACURIUM BESYLATE 200 MG in SODIUM CHLORIDE 0.9% 250ML 100 ML IV PRN (09:30)
--- NOTE | 2020-06-10 10:16 | NUR ---
infectious disease progress note June 10, 2020 Patient seen and examined chart reviewed Patient . intensive care unit PHYSICAL EXAMINATION: HEENT: Shows no facial swelling or erythema. LYMPHATIC: Shows no submandibular, cervical, or supraclavicular adenopathy. CARDIAC: Reveals regular rate and rhythm with normal S1 and S2. LUNGS: Auscultation of lungs reveals crackles and rhonchi bilaterally. ABDOMEN: Soft, nontender. There is no rebound or guarding. EXTREMITIES: Shows no leg edema or calf tenderness. There is no cyanosis or clubbing. SKIN: Shows no rashes. NEUROLOGICAL: Shows no focal abnormalities. LABORATORY DATA: White blood cell count is 18.5 and hemoglobin is 7.4. The platelet count is 189. BUN to creatinine ratio is 23 to 0.57 and the potassium is 3.4. RADIOGRAPHIC DATA: Chest x-ray shows bilateral infiltrates. IMPRESSION: 1. Acute respiratory failure. 2. Viral pneumonia and coronavirus disease-2019 infection. 3. Atrial fibrillation. 4. Diabetes. 5. Anemia secondary to chronic blood loss. 6. Hypertension. cont same
[2020-06-10 11:59] LABS: ABG PH 7.29 (7.35-7.45)
[2020-06-10 12:00] LABS: ABG HCO3 41 mmol/L (22-26); ABG PCO2 85 mmHg (35-45); ABG PO2 88 mmHg (80-105); ABG TCO2 44
[2020-06-10] MEDS: FUROSEMIDE INJ 100 MG in SODIUM CHLORIDE 0.9% 100 ML 90 ML IV SCH (13:55)
--- NOTE | 2020-06-10 14:18 | Progress Note ---
DATE: SUBJECTIVE: This patient is currently on a pressure control mode of ventilation. He remains on a PRVC rate of 32 with a pressure above PEEP of 32 and a PEEP of 10. He is synchronized with the ventilator. PHYSICAL EXAMINATION: VITAL SIGNS: The blood pressure is 146/53, saturation is 96%. HEENT: Shows no facial swelling or erythema. LYMPHATIC: Shows no submandibular, cervical, or supraclavicular adenopathy. CARDIAC: Reveals regular rate and rhythm with normal S1 and S2. LUNGS: Auscultation of lungs reveals rhonchorous breath sounds bilaterally. There is no wheezing. ABDOMEN: Soft and nontender. There is no rebound or guarding. EXTREMITIES: Shows no leg edema or calf tenderness. There is no cyanosis or clubbing. SKIN: Shows no rashes. LABORATORY DATA: White blood cell count is 18.5, hemoglobin is 7.4 and the platelet count is 198. The BUN to creatinine ratio is normal. Other electrolytes are within normal limits and the albumin is 2.5. IMPRESSION: 1. Acute respiratory failure. 2. Viral pneumonia and COVID-19 infection. 3. Diabetes. 4. Anemia secondary to chronic blood loss. 5. Hypertension. PLAN: 1. Continue current ventilator settings. 2. Continue fentanyl and Versed along with Nimbex. 3. Continue enteral feedings. 4. The patient has been started on Lasix. 5. Give additional free water to correct high sodium. Manuel Quigley MD [facility]/MODL /[id number]
[2020-06-10] MEDS ORDERED: POTASSIUM CHLORIDE 20MEQ/100ML 100 ML IV ONE (16:45)
[2020-06-10] MEDS ORDERED: AMIODARONE HCL 900 MG in DEXTROSE 5% 500ML 500 ML IV ONE (16:45)
[2020-06-10] MEDS ORDERED: AMIODARONE HCL 150 MG/100 ML BAG IV ONE (16:45)
[2020-06-10] MEDS ORDERED: SODIUM CHLORIDE 0.9% 1000ML 1,000 ML ONE (16:50)
[2020-06-10] MEDS ORDERED: PHENYLEPHRINE 10MG/ML VIAL 40 MG in DEXTROSE 5% 250ML 246 ML IV PRN (17:00)
[2020-06-10] MEDS ORDERED: AMIODARONE HCL 150 MG in DEXTROSE 5% 100ML 100 ML IV ONE (17:00)
--- NOTE | 2020-06-10 18:54 | Diagnostic Imaging Report ---
EXAMINATION: CHEST SINGLE (PORTABLE) INDICATION: Respiratory failure COMPARISON: Chest radiograph 06/08/20. FINDINGS: LINES/TUBES: Unchanged endotracheal tube, enteric tube, and left arm PICC. LUNGS:The lungs are moderately inflated. Unchanged bilateral interstitial and lower lung zone predominant airspace opacities PLEURA:No pleural effusion or pneumothorax. MEDIASTINUM:The cardiomediastinal silhouette appears unchanged in size and shape. BONES/SOFT TISSUES:No acute osseous injury. ABDOMEN:No free air under the diaphragm. IMPRESSION: Persistent findings of multifocal pneumonia. Unchanged lines and tubes. No pneumothorax. Signed by: Dr. Luis Cain MD on 06/10/2020 6:51 PM
--- NOTE | 2020-06-10 19:28 | NUR ---
Patient positioned from prone to supine at 1600. Patient having runs of AFIB RVR with HR in 150's and hypotension. Dr. Neumann notified, orders given for EKG. MD at bedside to assess patient, orders given for amiodarone drip and potassium. Wound care done to sacrum, ear and facial wounds. Upon supining patient new wound noted to penis, refer to documentation.
--- NOTE | 2020-06-10 20:09 | Progress Note ---
DATE: 06/10/2020 Cardiology Progress Note. SUBJECTIVE: Intubated, sedated. OBJECTIVE: VITAL SIGNS: Temperature 98.2, heart rate 96, blood pressure 146/53, respiratory rate 32. Of note while at bedside converted into atrial fibrillation with rapid ventricular response. Amiodarone initiated. The patient became hypotensive. The patient self converted back to sinus rhythm with resolution of hypotension. GENERAL: Intubated, sedated. NECK: Supple. CHEST: With rales, decreased breath sounds. CARDIOVASCULAR: Regular rate and rhythm alternating with intermittent episodes of irregularly irregular rapid ventricular response. Normal S1 and S2. ABDOMEN: Bowel sounds positive. EXTREMITIES: 2+ edema. Normothermic extremities. CARDIOVASCULAR MEDICATIONS: Reviewed. Hydrochlorothiazide 25 mg daily, hydralazine 10 q.4 hours, Lovenox 40 q.12 hours, furosemide 5 mg/hour. STUDIES: Reviewed. Sodium 146, potassium 3.7, chloride 101, bicarbonate 38, BUN 25, creatinine 0.57, glucose 167. White blood cells 18.5, hemoglobin 7.4, platelets 189. PT 18.7, INR 1.4. ASSESSMENT AND PLAN: 1. A 65-year-old man with acute respiratory failure, COVID-19 infection, community acquired pneumonia, paroxysmal atrial fibrillation with episodes of RVR and hypotension. 2. Acute on chronic diastolic heart failure with history of hypertension. 3. Anemia. Recommend adjust Lovenox dosing to therapeutic dose given atrial fibrillation. 4. Add amiodarone bolus. Complete IV drip per protocol. 5. Continue rest of cardiovascular medication. Discussed with nursing staff. If the patient continues to have recurrent bouts of atrial fibrillation with RVR and hemodynamic instability with hypotension, can also initiate phenylephrine drip to assist with maintaining MAP of 65 to 75. Mario Harris MD [facility]/MODL /[id number]
[2020-06-10] MEDS: ENOXAPARIN INJ 80 MG/0.8 ML SYR SC SCH (20:23)
--- NOTE | 2020-06-10 20:29 | Progress Note ---
DATE: 06/10/2020 CONSULTANTS: 1. Dr. Quigley, gynaecological oncologist. 2. Dr. Robertson, Infectious Disease. 3. Dr. Neumann, Cardiology. 4. Dr. Archer, Renal. SUBJECTIVE: The patient in prone position, remains intubated and sedated. He was in the supine position for about 5 hours yesterday, but did not tolerate it, so was turned in prone position. He was started back on Lasix drip for diuresis. PHYSICAL EXAMINATION: VITAL SIGNS: Temperature 98.2, pulse is 95, respirations 32, blood pressure 141/52, pulse ox is 97% on the vent. GENERAL: Intubated and sedated. HEENT: Normocephalic. CARDIOVASCULAR: Regular rate and rhythm. LUNGS: Decreased breath sounds. ABDOMEN: Soft. NEURO: Sedated. MUSCULOSKELETAL: Bilateral lower extremities edema +2. SKIN: Dry with sacral ulcer. : Vizcarra. LABORATORY DATA: WBC 18.54, hemoglobin 7.4, hematocrit 25.3, and platelet is 189. Sodium 146, potassium 3.7, BUN 25, creatinine 0.52, glucose 157, AST 20, ALT 15. ABG; pH 7.29, pCO2 of 85, PO2 of 88, bicarb 41. IMPRESSION: 1. Acute respiratory failure due to coronavirus disease 2019 pneumonia. Remains sedated and intubated in prone position. Not tolerating supine position. Vent management per gynaecological oncologist. 2. Leukocytosis. Blood culture is contaminated. Currently off antibiotics per ID. We will continue to monitor. 3. Chronic anemia. His hemoglobin is stable. We will continue to monitor closely. 4. Hypokalemia, replaced. 5. Hypertension. We will treat with hydrochlorothiazide p.o. and hydralazine as needed. 6. Generalized edema. Restarted on Lasix drip per Renal. 7. Morbid obesity. 8. Deep vein thrombosis prophylaxis. Continue Lovenox subcu. PLAN: To continue Lasix drip, monitor ABG, and supportive therapy. Dictated by MARAH Castro Stacyching Anmol Rodriguez MD MY/MODL /[id number]
[2020-06-11] VITALS (23 sets, daily range): BP systolic 115–170; BP diastolic 42–58
[2020-06-11] MEDS: MIDAZOLAM HCL 5MG/ML 10ML VIAL 100 ML IV PRN ×4 (00:04→19:22)
[2020-06-11] MEDS: FUROSEMIDE INJ 100 MG in SODIUM CHLORIDE 0.9% 100 ML 90 ML IV SCH (06:17)
[2020-06-11 06:54] LABS: ANION GAP 9.4 mmol/L (8-16); BLOOD UREA NITROGEN 23 mg/dL (7-26); BUN/CREATININE RATIO 40 (6-25); CALCIUM 8.9 mg/dL (8.4-10.2); CHLORIDE 94 mmol/L (98-107); CREATININE, SERUM 0.57 mg/dL (0.72-1.25); EST GLOMERULAR FILTRATION RATE > 60 ML/MIN (60-); GLUCOSE 182 mg/dL (74-118); POTASSIUM 3.4 mmol/L (3.5-5.1); SODIUM 144 mmol/L (136-145)
[2020-06-11 07:03] LABS: CARBON DIOXIDE 44 mmol/L (22-29)
[2020-06-11] MEDS: FENTANYL 2000MCG/NS 250 250 ML IV PRN (07:03)
[2020-06-11] MEDS: LACTULOSE SYRUP 20 GM/30 ML UDC PO SCH (08:47)
[2020-06-11] MEDS: ENOXAPARIN INJ 80 MG/0.8 ML SYR SC SCH ×2 (08:47→21:53)
[2020-06-11] MEDS: HYDROCHLOROTHIAZIDE 25 MG TAB PO SCH (08:47)
[2020-06-11] MEDS: FAMOTIDINE 20 MG/2 ML VIAL IV SCH ×2 (08:47→16:20)
[2020-06-11] MEDS: BALSAM PERU/CASTOR OIL 60 GM OINT...G. TP SCH (08:47)
--- NOTE | 2020-06-11 09:06 | Diagnostic Imaging Report ---
EXAMINATION: CHEST SINGLE (PORTABLE) INDICATION: Respiratory failure. Pneumonia. COMPARISON: Chest radiograph 06/10/20. FINDINGS: LINES/TUBES: Unchanged endotracheal tube approximately 3.7 cm proximal to the cadence, enteric tube, and left arm PICC. LUNGS:Redemonstration of extensive bilateral interstitial and airspace densities with air bronchograms, most markedly involving the lung bases. PLEURA:No pneumothorax. Possible trace pleural effusions. MEDIASTINUM:The cardiomediastinal silhouette appears unchanged in size and shape. BONES/SOFT TISSUES:No acute osseous injury. ABDOMEN:No free air under the diaphragm. IMPRESSION: No significant interval change in bilateral diffuse interstitial and patchy airspace disease. Signed by: Dr. Claudio Littlejohn M.D. on 06/11/2020 9:02 AM
--- NOTE | 2020-06-11 11:06 | Progress Note ---
DATE: SUBJECTIVE: The patient is currently in supine position. The patient is on a pressure control mode of ventilation at a rate of 32 with a tidal volume 32. PEEP is set at 10 and pressure control is set at 32 over PEEP. FiO2 is set at 100%. PHYSICAL EXAMINATION: HEENT: Shows no facial swelling or erythema. LYMPHATIC: Shows no submandibular, cervical, or supraclavicular adenopathy. CARDIAC: Reveals regular rate and rhythm with normal S1 and S2. LUNGS: Auscultation of lungs reveals crackles and rhonchi bilaterally. ABDOMEN: Soft, nontender. There is no rebound or guarding. EXTREMITIES: Shows no leg edema or calf tenderness. There is no cyanosis or clubbing. SKIN: Shows no rashes. NEUROLOGICAL: Shows no focal abnormalities. LABORATORY DATA: White blood cell count is 18.5 and hemoglobin is 7.4. The platelet count is 189. BUN to creatinine ratio is 23 to 0.57 and the potassium is 3.4. RADIOGRAPHIC DATA: Chest x-ray shows bilateral infiltrates. IMPRESSION: 1. Acute respiratory failure. 2. Viral pneumonia and coronavirus disease-2019 infection. 3. Atrial fibrillation. 4. Diabetes. 5. Anemia secondary to chronic blood loss. 6. Hypertension. PLAN: 1. Continue current ventilator settings in the supine position. 2. Position the patient in the prone position later this afternoon or this evening. 3. Continue fentanyl and Versed along with Nimbex. 4. Continue amiodarone. 5. Continue Lasix drip. 6. Add acetazolamide. 7. Continue enteral feedings. 8. Case discussed with daughter, nursing, Respiratory, and Internal Medicine. Case also discussed with administration. Greater than 35 minutes in direct critical care time. Manuel Quigley MD [facility]/MODL /[id number]
[2020-06-11 12:15] LABS: ABG PCO2 85 mmHg (35-45); ABG PH 7.34 (7.35-7.45)
[2020-06-11 12:16] LABS: ABG HCO3 46 mmol/L (22-26); ABG PO2 72 mmHg (80-105); ABG TCO2 49
[2020-06-11] MEDS ORDERED: POTASSIUM CHLORIDE 20MEQ/15ML UDC NG NR (12:30)
[2020-06-11] MEDS ORDERED: ROCURONIUM BROMIDE 1,250 MG in SODIUM CHLORIDE 0.9% 250ML 125 ML IV SCH (16:30)
--- NOTE | 2020-06-11 16:38 | Progress Note ---
DATE: SUBJECTIVE: This is day #39. Mr. Bob remains in the intensive care unit. He is very ill on the ventilator. PHYSICAL EXAMINATION: HEENT: Normocephalic. NECK: Supple. CHEST: Crackles. HEART: S1, S2. No murmurs. ABDOMEN: Soft. IMPRESSION: Respiratory failure, coronavirus disease-19, hypoxemia, maximum vent setting. Prognosis remains very poor. Family is aware, but they have unrealistic expectation. The patient is currently on Lovenox, amiodarone. His white count is 18.45, hemoglobin 7.4. The patient with anemia. We will put him back on antibiotic for possibility of aspiration pneumonia. We will follow. Rocío Robertson MD [facility]/MODL /[id number]
[2020-06-11] MEDS: CISATRACURIUM BESYLATE 200 MG in SODIUM CHLORIDE 0.9% 250ML 100 ML IV PRN (17:15)
--- NOTE | 2020-06-11 19:18 | Progress Note ---
DATE: 06/11/2020 CONSULTANTS: 1. Dr. Quigley, marble installation helper. 2. Dr. Robertson, Infectious Disease. 3. Dr. Neumann, deburring machine operator. 4. Dr. Singh, Renal. SUBJECTIVE: The patient is seen in prone position, remains intubated and sedated. Reported atrial fibrillation with heart rate of 150s to 160s yesterday evening, was started on amiodarone and currently sinus rhythm on the monitor. PHYSICAL EXAMINATION: VITAL SIGNS: Temperature 99.9, pulse is 90, respirations 32, blood pressure 122/46, pulse ox is 95% on vent 100% FiO2. GENERAL: Intubated and sedated. HEENT: Normocephalic. CARDIOVASCULAR: Regular rate and rhythm. Sinus rhythm. LUNGS: With decreased breath sounds. ABDOMEN: Soft. NEURO: Sedated. MUSCULOSKELETAL: Bilateral lower extremity +1 edema. SKIN: Dry with a sacral pressure ulcer and penile ulcer. : Vizcarra. LABORATORY DATA: Sodium 144, potassium 3.4, CO2 of 44, creatinine 0.57, and estimated GFR is greater than 60. ABG; pH 7.34, pCO2 of 85, PO2 of 72, and bicarb 46. Chest x-ray, no significant interval change and bilateral diffuse interstitial and patchy airspace disease. IMPRESSION: 1. Acute respiratory failure due to coronavirus disease-19 pneumonia. Remains sedated and intubated. Vent management per Pulmonology. 2. Leukocytosis. Blood cultures contaminated, cefepime started per ID. Chest x-ray noted. 3. Chronic anemia. Hemoglobin is stable. We will continue to monitor. 4. Hypertension. Continue hydrochlorothiazide and hydralazine as needed. 5. Generalized edema. He will be started on Lasix drip per Renal. 6. New onset atrial fibrillation with rapid ventricular response. He was started on amiodarone drip per Cardiology. Currently sinus rhythm. 7. Morbid obesity. 8. Deep vein thrombosis prophylaxis. Continue Lovenox subcu. PLAN: To continue with Lasix drip and amiodarone per Cardiology. Discussed with bedside nurse and daughter regarding code status. Mackenzie, the patient's daughter wants to continue full code status. Dictated by MARAH Castro Yiching MD [facility]/MIKE /[id number]
--- NOTE | 2020-06-11 19:25 | NUR ---
Pt unable to tolerate turning during shift. Per Dr. Steven doyle prone patient tonight.
[2020-06-11] MEDS: ACETAZOLAMIDE SODIUM 500 MG/VIAL IV SCH (21:52)
[2020-06-11] MEDS: CEFEPIME 1GM/NS 0.9% 50 ML 50 ML IV SCH (21:53)
[2020-06-11] MEDS: AMIODARONE HCL 200 MG TAB PO SCH (21:53)
--- NOTE | 2020-06-11 22:38 | NUR ---
Patient's daughter visited patient in his room and stayed at bedside for an hour. Daughter Mackenzie wants to continue with all treatment and continue Full Code status.
[2020-06-12] VITALS (24 sets, daily range): BP systolic 111–159; BP diastolic 45–68
--- NOTE | 2020-06-12 02:43 | NUR ---
Patient prone at 2AM.
[2020-06-12] MEDS: ROCURONIUM BROMIDE 1,250 MG in SODIUM CHLORIDE 0.9% 250ML 125 ML IV PRN (05:23)
[2020-06-12 05:26] LABS: BASOPHILS # (AUTO) 0.1 (0.0-0.1); BASOPHILS % 0.4 % (0.0-1.0); EOSINOPHILS # (AUTO) 3.2 (0.0-0.4); EOSINOPHILS % 12.9 % (0.0-6.0); HEMATOCRIT 26.4 % (38.2-49.6); HEMOGLOBIN 7.6 g/dL (14.0-18.0); LYMPHOCYTES % 12.2 % (18.0-39.1); MEAN CORPUSCULAR HEMOGLOBIN 28.4 pg (28-32); MEAN CORPUSCULAR HGB CONC 28.8 g/dL (31-35); MONOCYTES # (AUTO) 1.4 (0.2-0.8); MONOCYTES % 5.5 % (4.4-11.3); NEUTROPHILS # (AUTO) 16.1 (2.1-6.9); NEUTROPHILS % 64.6 % (38.7-80.0); PLATELET COUNT 258 x10e3/uL (140-360); RED BLOOD COUNT 2.68 x10e6/uL (4.3-5.7); RED CELL DISTRIBUTION WIDTH 16.5 % (11.7-14.4)
[2020-06-12 05:28] LABS: MEAN CORPUSCULAR VOLUME 98.5 fL (81-99)
[2020-06-12] MEDS: FUROSEMIDE INJ 100 MG in SODIUM CHLORIDE 0.9% 100 ML 90 ML IV SCH ×2 (06:10→13:42)
[2020-06-12] MEDS: CEFEPIME 1GM/NS 0.9% 50 ML 50 ML IV SCH ×3 (06:29→21:12)
[2020-06-12 06:31] LABS: ALANINE AMINOTRANSFERASE 17 IU/L (0-55); ALBUMIN 2.4 g/dL (3.5-5.0); ALBUMIN/GLOBULIN RATIO 0.6 (0.8-2.0); ALKALINE PHOSPHATASE 61 IU/L (40-150); ANION GAP 11.1 mmol/L (8-16); BLOOD UREA NITROGEN 24 mg/dL (7-26); BUN/CREATININE RATIO 38 (6-25); CALCIUM 8.8 mg/dL (8.4-10.2); CHLORIDE 92 mmol/L (98-107); CREATININE, SERUM 0.63 mg/dL (0.72-1.25); EST GLOMERULAR FILTRATION RATE > 60 ML/MIN (60-); GLUCOSE 126 mg/dL (74-118); POTASSIUM 3.1 mmol/L (3.5-5.1); SODIUM 145 mmol/L (136-145)
[2020-06-12 06:34] LABS: CARBON DIOXIDE 45 mmol/L (22-29)
[2020-06-12 08:55] LABS: ABG PH 7.14 (7.35-7.45)
[2020-06-12 08:56] LABS: ABG PCO2 > 130 mmHg (35-45); ABG PO2 129 mmHg (80-105)
[2020-06-12] MEDS: ACETAZOLAMIDE SODIUM 500 MG/VIAL IV SCH (09:02)
[2020-06-12] MEDS: AMIODARONE HCL 200 MG TAB PO SCH ×2 (09:03→18:36)
[2020-06-12] MEDS: FAMOTIDINE 20 MG/2 ML VIAL IV SCH ×2 (09:03→18:36)
[2020-06-12] MEDS: HYDROCHLOROTHIAZIDE 25 MG TAB PO SCH (09:03)
[2020-06-12] MEDS: POTASSIUM CHLORIDE 20MEQ/15ML UDC NG SCH (09:03)
[2020-06-12] MEDS: ENOXAPARIN INJ 80 MG/0.8 ML SYR SC SCH ×2 (09:03→21:12)
[2020-06-12] MEDS: LACTULOSE SYRUP 20 GM/30 ML UDC PO SCH (09:03)
[2020-06-12] MEDS: BALSAM PERU/CASTOR OIL 60 GM OINT...G. TP SCH (09:03)
[2020-06-12 10:39] LABS: ABG HCO3 46 mmol/L (22-26); ABG PCO2 93 mmHg (35-45); ABG PO2 127 mmHg (80-105); ABG TCO2 49
[2020-06-12] MEDS: FENTANYL 2000MCG/NS 250 250 ML IV PRN (11:50)
[2020-06-12] MEDS: MIDAZOLAM HCL 5MG/ML 10ML VIAL 100 ML IV PRN ×2 (11:51→17:31)
--- NOTE | 2020-06-12 12:33 | Progress Note ---
DATE: SUBJECTIVE: The patient's Lasix drip was increased this morning. The patient required additional suctioning. He remains in the prone position. He is currently on a PRVC mode of ventilation at a rate of 32 with a FiO2 of 80% and a PEEP of 10. The pressure control above PEEP is 30. PHYSICAL EXAMINATION: VITAL SIGNS: Blood pressure is 120/50 and pulse is 92. Saturation is 90%. HEENT: Shows no facial swelling or erythema. CARDIAC: Reveals regular rate and rhythm with normal S1 and S2. LUNGS: Auscultation of lungs reveals rhonchorous breath sounds bilaterally. There is no wheezing. ABDOMEN: Soft and nontender. There is no rebound or guarding. EXTREMITIES: Shows no leg edema or calf tenderness. There is no cyanosis or clubbing. SKIN: Shows no rashes. NEUROLOGICAL: Shows the patient to be sedated and paralyzed. LABORATORY DATA: White blood cell count is increased to 24.8 and the hemoglobin is 7.6. The BUN to creatinine ratio is 24 to 0.63. The potassium is 3.1 and the albumin is 2.4. IMPRESSION: 1. Acute respiratory failure. 2. Viral pneumonia and COVID-19 infection. 3. Atrial fibrillation. 4. Diabetes. 5. Leukocytosis. 6. Anemia. 7. Anasarca. PLAN: 1. Continue Lasix drip. 2. Repeat ABG at 1300 hours. 3. Continue fentanyl and Versed along with rocuronium. 4. Continue amiodarone. 5. Enteral feedings. Greater than 35 minutes in direct critical care time. Manuel Quigley MD [facility]LEY[facility] /[id number]
--- NOTE | 2020-06-12 14:38 | NUR ---
This infectious disease per his note. Patient seen and examined chart reviewed. is June 12, 2020 prepared for the patient remains in intensive care unit his prognosis remains poor in general. he patient's Lasix drip was increased this morning. The patient required additional suctioning. He remains in the prone position. He is currently on a PRVC mode of ventilation at a rate of 32 with a FiO2 of 80% and a PEEP of 10. The pressure control above PEEP is 30. PHYSICAL EXAMINATION: VITAL SIGNS: Blood pressure is 120/50 and pulse is 92. Saturation is 90%. HEENT: Shows no facial swelling or erythema. CARDIAC: Reveals regular rate and rhythm with normal S1 and S2. LUNGS: Auscultation of lungs reveals rhonchorous breath sounds bilaterally. There is no wheezing. ABDOMEN: Soft and nontender. There is no rebound or guarding. EXTREMITIES: Shows no leg edema or calf tenderness. There is no cyanosis or clubbing. SKIN: Shows no rashes. NEUROLOGICAL: Shows the patient to be sedated and paralyzed. LABORATORY DATA: White blood cell count is increased to 24.8 and the hemoglobin is 7.6. The BUN to creatinine ratio is 24 to 0.63. The potassium is 3.1 and the albumin is 2.4. IMPRESSION: 1. Acute respiratory failure. 2. Viral pneumonia and COVID-19 infection. 3. Atrial fibrillation. 4. Diabetes. 5. Leukocytosis. 6. Anemia. 7. Anasarca. continue as ordered continue supportive care recheck CBC and check an panel
[2020-06-12 15:51] LABS: ABG HCO3 45 mmol/L (22-26); ABG PCO2 87 mmHg (35-45); ABG PH 7.33 (7.35-7.45); ABG PO2 60 mmHg (80-105); ABG TCO2 48
[2020-06-12] MEDS ORDERED: MAGNESIUM SULF 1GRAM/DEXTROSE 100 ML IV ONE (18:00)
--- NOTE | 2020-06-12 18:19 | Progress Note ---
DATE: 06/12/2020 CONSULTANTS: 1. Dr. Quigley, ethernet network architect. 2. Dr. Robertson, Infectious Disease. 3. Dr. Neumann, head well puller. 4. Dr. Singh, Renal. SUBJECTIVE: The patient remains intubated and sedated. Remained sinus rhythm on the monitor, amiodarone changed to p.o. Daughter visited the patient overnight. PHYSICAL EXAMINATION: VITAL SIGNS: Temperature 98.5, pulse 92, respirations 32, blood pressure 120/50, pulse ox is 99% on the vent. GENERAL: Sedated and intubated. HEENT: Normocephalic. CARDIOVASCULAR: Regular rate and rhythm. S1, S2 heard. LUNGS: With decreased breath sounds. ABDOMEN: Soft. NEURO: Sedated. MUSCULOSKELETAL: Bilateral lower extremities +1 edema. SKIN: Dry with sacral pressure ulcer. : Vizcarra. LABORATORY DATA: WBC 24.8, hemoglobin 7.6, hematocrit 26.4. Sodium 145, potassium 3.1, CO2 45, creatinine 0.63, BUN 24. Glucose 126, AST 31, ALT 17, magnesium 1.7. IMPRESSION: 1. Acute respiratory failure due to coronavirus disease - 19 pneumonia. Remains intubated and sedated, vent management per ethernet network architect. 2. Leukocytosis. Blood cultures contaminated, WBC 24.8, continue cefepime per ID. 3. Chronic anemia. Hemoglobin is stable at 7.6. We will continue to monitor closely. 4. Hypertension. Continue hydrochlorothiazide and hydralazine as needed. 5. Generalized edema. Diuretics per Renal. 6. Hypokalemia. One daily potassium per Renal. 7. New onset atrial fibrillation. Currently sinus rhythm, amiodarone drip, changed to p.o. per Cardiology. 8. Morbid obesity. 9. Deep vein thrombosis prophylaxis. Continue Lovenox subcu. PLAN: Continue diuretics and antibiotics per ID. Repeat labs in a.m. Dictated by MARAH Castro Alicja Rodriguez MD MY/MODL /[id number]
--- NOTE | 2020-06-12 18:40 | Progress Note ---
DATE: 06/12/2020 Renal Progress Note SUBJECTIVE: Events over the past 24-hours have been noted. The patient remains intubated and remains on a ventilator. He is in the prone position. PHYSICAL EXAMINATION: VITAL SIGNS: Blood pressure 114/48, pulse 92. GENERAL: The patient is in the prone position. HEENT: He is intubated on a ventilator. His facial edema is still there but little bit less. CARDIOVASCULAR: Regular rate and rhythm. LUNGS: Crackles and high-pitched squeal bilaterally. ABDOMEN: Decreased bowel sounds. EXTREMITIES: Trace edema of the feet. LABORATORY RESULTS: Sodium 145, potassium 3.1, chloride 92, bicarbonate 45, BUN and creatinine 24 and 0.6 respectively. IMPRESSION: 1. COVID infection. 2. COVID pneumonia. 3. Metabolic contraction alkalosis. 4. Positive fluid balance. 5. Hypokalemia. PLAN: The patient has a magnesium of 1.7, potassium is low, those will be replaced if not replaced already. He is on a Lasix drip. We will continue the Lasix drip. However, if the contraction alkalosis gets worse, he may need to start some Diamox again. The patient is on hydrochlorothiazide, that will help with the hypernatremia to a certain degree. As potassium is replaced, I will some magnesium replacement as well. Prognosis is quite poor. Ather MD LAWRENCE Singh/MIKE /[id number]
[2020-06-12] MEDS ORDERED: POTASSIUM CHLORIDE 20 MEQ TAB CR PO SCH (19:30)
--- NOTE | 2020-06-12 19:30 | Progress Note ---
DATE: 06/12/2020 Cardiology Progress Note SUBJECTIVE: Remains intubated and sedated. OBJECTIVE: VITAL SIGNS: Temperature 99 degrees, blood pressure 159/68, respiratory rate 32, O2 saturation 99%, BMI 37. GENERAL: Intubated, sedated. NECK: Supple. CHEST: Rales and decreased breath sounds. CARDIOVASCULAR: Regular rate and rhythm. Normal S1, S2. ABDOMEN: Soft. Bowel sounds positive. EXTREMITIES: Trace edema. Telemetry in sinus rhythm. CARDIOVASCULAR MEDICATIONS: Reviewed. 1. Amiodarone 200 mg b.i.d. 2. Lovenox 80 q.12 hours. 3. Hydrochlorothiazide 25 mg daily. 4. KCl 20 mEq daily. STUDIES: Reviewed. Sodium 145, potassium 3.1, chloride 98, bicarbonate 45, BUN 24, creatinine 0.6, and glucose 126. White blood cells 24.8, hemoglobin 7.6, and platelets 258. INR 1.4, PTT 30.7, PT 18.7. AST 31, ALT 17, alkaline phosphatase 61. ASSESSMENT AND PLAN: A 65-year-old man presents with COVID-19 infection, community-acquired pneumonia, paroxysmal atrial fibrillation, anemia, hypertension, acute on chronic diastolic heart failure. RECOMMENDATIONS: Continue per NG tube amiodarone. The patient remains in sinus rhythm. Continue thromboembolic risk prevention with Lovenox, would plan for transitioning to Eliquis when closer to discharge. Monitor H and H and for signs of any gross bleeding. Currently off pressors. Does become hypotensive when in atrial fibrillation with RVR, however, in sinus rhythm. Remains normotensive. Mario Harris MD [facility]/MODL /[id number]
[2020-06-12] MEDS ORDERED: SODIUM CHLORIDE 0.9% 50ML 50 ML ONE (23:42)
[2020-06-13] VITALS (25 sets, daily range): BP systolic 112–148; BP diastolic 42–55
[2020-06-13] MEDS: FUROSEMIDE INJ 100 MG in SODIUM CHLORIDE 0.9% 100 ML 90 ML IV SCH ×3 (00:04→21:13)
[2020-06-13 04:52] LABS: BASOPHILS # (AUTO) 0.1 (0.0-0.1); BASOPHILS % 0.3 % (0.0-1.0); EOSINOPHILS # (AUTO) 2.6 (0.0-0.4); EOSINOPHILS % 13.4 % (0.0-6.0); HEMATOCRIT 25.6 % (38.2-49.6); HEMOGLOBIN 7.4 g/dL (14.0-18.0); LYMPHOCYTES # (AUTO) 2.1 (1.0-3.2); LYMPHOCYTES % 10.6 % (18.0-39.1); MEAN CORPUSCULAR HEMOGLOBIN 28.1 pg (28-32); MEAN CORPUSCULAR HGB CONC 28.9 g/dL (31-35); MEAN CORPUSCULAR VOLUME 97.3 fL (81-99); MONOCYTES # (AUTO) 1.1 (0.2-0.8); MONOCYTES % 5.4 % (4.4-11.3); NEUTROPHILS % 66.5 % (38.7-80.0); PLATELET COUNT 232 x10e3/uL (140-360); RED BLOOD COUNT 2.63 x10e6/uL (4.3-5.7); RED CELL DISTRIBUTION WIDTH 16.7 % (11.7-14.4)
[2020-06-13] MEDS: CEFEPIME 1GM/NS 0.9% 50 ML 50 ML IV SCH ×3 (05:19→22:32)
[2020-06-13 05:38] LABS: ALANINE AMINOTRANSFERASE 16 IU/L (0-55); ALBUMIN 2.2 g/dL (3.5-5.0); ALBUMIN/GLOBULIN RATIO 0.5 (0.8-2.0); ALKALINE PHOSPHATASE 64 IU/L (40-150); ANION GAP 11.1 mmol/L (8-16); BLOOD UREA NITROGEN 29 mg/dL (7-26); BUN/CREATININE RATIO 47 (6-25); CALCIUM 8.8 mg/dL (8.4-10.2); CHLORIDE 89 mmol/L (98-107); CREATININE, SERUM 0.62 mg/dL (0.72-1.25); EST GLOMERULAR FILTRATION RATE > 60 ML/MIN (60-); GLUCOSE 123 mg/dL (74-118); POTASSIUM 3.1 mmol/L (3.5-5.1); SODIUM 142 mmol/L (136-145)
[2020-06-13 05:44] LABS: CARBON DIOXIDE 45 mmol/L (22-29)
--- NOTE | 2020-06-13 06:46 | NUR ---
Yesterday potassium level was 3.1 and replaced with 40mEq total yesterday evening. This morning patient K level was 3.1 and attempted to notify Dr. Archer but could not reach him, left a voicemail and call back number to his on-call Dr. Patient did not have any acute events over night.
[2020-06-13 07:36] LABS: ABG PCO2 79 mmHg (35-45); ABG PH 7.38 (7.35-7.45); ABG PO2 75 mmHg (80-105)
[2020-06-13 07:37] LABS: ABG HCO3 47 mmol/L (22-26); ABG TCO2 49
[2020-06-13] MEDS: POTASSIUM CHLORIDE 20MEQ/15ML UDC NG SCH ×2 (08:33→16:56)
[2020-06-13] MEDS: FAMOTIDINE 20 MG/2 ML VIAL IV SCH ×2 (08:33→16:56)
[2020-06-13] MEDS: LACTULOSE SYRUP 20 GM/30 ML UDC PO SCH (08:34)
[2020-06-13] MEDS: AMIODARONE HCL 200 MG TAB PO SCH ×2 (08:34→16:56)
[2020-06-13] MEDS: HYDROCHLOROTHIAZIDE 25 MG TAB PO SCH (08:34)
[2020-06-13] MEDS: ENOXAPARIN INJ 80 MG/0.8 ML SYR SC SCH ×2 (08:34→21:14)
[2020-06-13] MEDS: BALSAM PERU/CASTOR OIL 60 GM OINT...G. TP SCH (08:34)
[2020-06-13] MEDS: MIDAZOLAM HCL 5MG/ML 10ML VIAL 100 ML IV PRN ×3 (08:35→20:12)
--- NOTE | 2020-06-13 10:43 | Progress Note ---
DATE: Cardiology Progress Note SUBJECTIVE: Mr. Bob remains intubated and sedated. OBJECTIVE: VITAL SIGNS: Temperature 98.5, heart rate 88, blood pressure 112/43, respiratory rate 32, and O2 saturation 94%. GENERAL: Intubated, sedated. NECK: Supple. CHEST: With rales and decreased breath sounds. CARDIOVASCULAR: Regular rate and rhythm. Normal S1, S2. ABDOMEN: Soft. Bowel sounds positive. EXTREMITIES: 1+ edema. CARDIOVASCULAR MEDICATIONS: Reviewed. Amiodarone 200 mg b.i.d., Lovenox 80 mg q.12 hours, and furosemide 10 mg/hour. STUDIES: Reviewed. Sodium 142, potassium 3.1, creatinine 0.6 and glucose 123. White blood cells 19.5, hemoglobin 7.4, and platelets 232. TELEMETRY: In sinus rhythm. ASSESSMENT AND PLAN: 1. Paroxysmal atrial fibrillation. 2. Acute respiratory failure. 3. Coronavirus disease-19 infection. 4. Community-acquired pneumonia. RECOMMENDATIONS: Continue current cardiovascular medications. Monitor H and H, replete electrolytes as needed. MD CHRISTINE Bal/MODL /[id number]
--- NOTE | 2020-06-13 13:23 | NUR ---
infectious disease progress note patient seen and examined patient made intensive care unit his condition remains extremely critical this is day #41 of hospitalization Case was discussed with medical team all his medication list reviewed lab data reviewed. OBJECTIVE: VITAL SIGNS: Temperature 98.5, heart rate 88, blood pressure 112/43, respiratory rate 32, and O2 saturation 94%. GENERAL: Intubated, sedated. NECK: Supple. CHEST: With rales and decreased breath sounds. CARDIOVASCULAR: Regular rate and rhythm. Normal S1, S2. ABDOMEN: Soft. Bowel sounds positive. EXTREMITIES: 1+ edema. CARDIOVASCULAR MEDICATIONS: Reviewed. Amiodarone 200 mg b.i.d., Lovenox 80 mg q.12 hours, and furosemide 10 mg/hour. STUDIES: Reviewed. Sodium 142, potassium 3.1, creatinine 0.6 and glucose 123. White blood cells 19.5, hemoglobin 7.4, and platelets 232. TELEMETRY: In sinus rhythm. ASSESSMENT AND PLAN: 1. Paroxysmal atrial fibrillation. 2. Acute respiratory failure. 3. Coronavirus disease-19 infection. 4. Community-acquired pneumonia. continue with supportive care as ordered recheck CBC or chicken panel family was unrealistic expectation
[2020-06-13] MEDS: FENTANYL 2000MCG/NS 250 250 ML IV PRN ×2 (13:50→21:16)
--- NOTE | 2020-06-13 14:10 | NUR ---
Nutrition Intervention Note RD Recommendation(s) for Physician: -In light of current pressor requirements, recommend trickle feeds of 10-20 ml/hr. When hemodynamically stable, resume TF at goal rate of 45 ml/hr (to provide 1620 kcal and 101 gm protein). Pt may be fed when in prone position at goal rate in reverse Trendelenburg with HOB at 10-25 degrees. -Continue water flushes of 50 ml q 4 hrs per current MD order. Plan of Care: RD following, monitoring for tolerance and adequacy, tube feed recommendation Nutrition reason for involvement: follow up RD Assessment 06/13: Follow up. Pt remains intubated and paralyzed requiring intermittent proning. Pt currently on Levophed at 8 mcg/min. TF continues to meet >75% of estimated needs. Chart reviewed. Will continue to monitor. 06/09: Follow up. Pt remains intubated and sedated. It is documented that pts tube feed is at 35 mL/hr. It is noted that pt has been in the prone position overnight. Will continue to monitor 06/06: Follow up. Pt remains intubated, sedated, and paralyzed. No pressor support. Pt continues on TF of Vital HP, infusing at 20 ml/hr at time of visit- RN unavailable to discuss rate. Pt not meeting needs with current TF > [address] Quigley regarding TF and goal rate, MD amenable to continuing goal rate while in prone position as it is not contraindicated. RD to modify TF order per MD. Chart reviewed. Will continue to monitor. 06/02: Follow up. Chart reviewed. Pt remains intubated and sedated. Pt is receiving Vital HP @ 30 mL/hr at this time - not meeting nutritional needs. Current recommendations remain appropriate. Will continue to monitor. 05/29: Follow up. Chart reviewed. Pt remains intubated and sedated. MD note indicates that pt remains in the prone position. Pt is receiving Vital HP @ 20 mL/hr at this time. Current recommendations remain appropriate. Will continue to monitor. 05/24: Follow up. Pt remains intubated and sedated, requiring to be proned- no paralytic currently. Vital HP infusing at goal rate, providing >75% of estimated needs. Chart reviewed. Current TF rec's remain appropriate. Will continue to monitor. 05/22: Follow up. Pt remains intubated, paralyzed, and sedated. TF documented as Glucerna 1.2 at 30 ml/hr currently, not meeting needs. Pt requiring proning at times. Pt with chest tubes to output. Current TF rec's remain appropriate. Chart reviewed. Will continue to monitor. 05/17: Follow up. Chart reviewed. Pt remains intubated. RN reports that pts tube feeding is at 10 mL/hr at this time and pt is in the prone position. Current recommendations remain appropriate. Will continue to monitor. 05/12: Pt was intubated yesterday and tube feeding was ordered. It is recorded that pt consumed 25% of breakfast on 05/10 and was previously consuming 50-100% of meals. Recommendations provided. Will continue to monitor. 05/09: 65 YOM admitted for hypoxia and pneumonia due to COVID-19. Pt assessed today for LOS. Attempted to call pt's room x 2, no answer- unable to obtain hx at this time. No wt loss or poor intake indicated at admit per MD notes. Pt with 50-100% intake since admit. Pt currently on Vapotherm per current respiratory status. Labs and meds reviewed. LBM 05/08, skin intact. Chart reviewed. Will continue to monitor. Principal Problems/Diagnoses: hypoxia, pneumonia due to COVID-19 PMH: HTN, HLD GI: round, soft abdomen, last recorded BM 06/12 Skin: stage 2 pressure ulcer/suspected DTI left ear, stage 2 pressure ulcer bilateral cheek, stage 2 pressure ulcer lower urethral meatus Labs: 06/13: Na 142, K 3.1, BUN 29, Cr 0.62, Gluc 123, Ca 8.8 06/09: Na 148, K 4.5, BUN 32, Cr 0.56, Glu 160 06/06: Na 147, K 3.3, BUN 22, Cr 0.62, Gluc 135, Ca 9 06/02: Na 140, K 3.5, BUN 24, Cr 0.66, Glu 116 05/29: Na 141, K 3.9, BUN 24, Cr 0.66, Glu 87, Ca 9.5 05/24: Na 147, K 3, BUN 27, Cr 0.61, Gluc 100, POC Gluc 123-126, Ca 6.3, Mg 1.5 05/22: Na 143, K 4.5, BUN 28, Cr 0.77, Gluc 122, POC Gluc 122-136 (05/17/20) Na 141, K 4.2, BUN 18, Cr 0.61, Glu 87, Ca 8.7 (05/12/20) Na 141, K 5.4, BUN 33, Cr 0.76, Glu 118, Ca 7.9 Meds: abx, lactulose, Mg Sulfate IVPB, KCl IVPB, pepcid IVF/Drips: Levophed at 8 mcg/min, Furosemide drip, Rocuronium drip Ht: 66 inches Wt: 215 lbs (06/13) 211 lbs (06/08) 212 lbs (06/06) 221 lbs (06/02) 246 lbs (05/28) 218 lbs (05/09) BMI: 35.2 using weight of 218 lbs IBW: 142 lbs Malnutrition Evaluation (06/09/20) The patient does not meet criteria for a specified degree of malnutrition at this time. Energy intake: pt is meeting >75% kcal and protein needs with current tube feed rate Weight loss: does not meet criteria- wt fluctuations since admit noted with no significant change from admit wt, likely fluid related Fat loss: none- ample skinfold thickness of upper arms, observed outside of pt room Muscle loss: none- shoulder round, observed outside of pt room Supporting Evidence: Fluid accumulation: trace edema in lower extremities Functional Status: unable to evaluate- pt intubated and sedated Nutrition Prescription (Diet Order): Pivot 1.5 @ goal of 45 mL/hr- infusing at goal rate per chart (1620 kcal and 101 gm protein) Estimated Nutritional Needs: 3162-5630 calories/day (22-25 kcal/kg IBW) 97-129 g protein/day (1.5-2 g pro/kg IBW) Diet Adequacy: Meeting >75% calorie and protein needs Tolerance: tolerating TF Diet Education Needs Assessment: Diet education is not indicated, pt is intubated Nutrition Care Level: moderate Nutrition Diagnosis: Inadequate oral intake related to acute respiratory failure/mechanical ventilation as evidenced by requiring enteral nutrition. Goal: Patient will meet 75-100% of estimated needs by follow up Progress: progressing Interventions: - Composition, Rate, Route Monitoring/Evaluation: -Total energy intake, Total protein intake, Formula/Solution, Weight change Signed: Carrie Corrigan RD, LD, CNSC
[2020-06-13] MEDS ORDERED: POTASSIUM CHLORIDE 20MEQ/100ML 100 ML IV ONE (15:15)
--- NOTE | 2020-06-13 17:31 | Progress Note ---
DATE: SUBJECTIVE: The patient is afebrile. He is still on mechanical ventilator. He is on a supine position. PHYSICAL EXAMINATION: VITAL SIGNS: The patient is afebrile. The blood pressure is 130/50 and saturation is 94%. He is currently on FiO2 85% with a respiratory rate set at 32, PEEP of 10, and a pressure above PEEP of 30. HEENT: Shows no facial swelling or erythema. There is an oral endotracheal tube. There is a PICC line in place as well as an arterial line. CARDIAC: Reveals regular rate and rhythm with normal S1 and S2. LUNGS: Auscultation of lungs reveals rhonchorous breath sounds bilaterally. There is no wheezing. ABDOMEN: Soft and nontender. There is no rebound or guarding. EXTREMITIES: Shows no leg edema or calf tenderness. There is no cyanosis or clubbing. SKIN: Shows no rashes. NEUROLOGICAL: Shows no focal abnormalities. LABORATORY DATA: The BUN to creatinine ratio is normal. The other electrolytes were significant for potassium of 3.1. White blood cell count is 19.6 and the hemoglobin is 7.4. The platelet count is 232. IMPRESSION: 1. Acute respiratory failure. 2. Viral pneumonia and COVID-19 infection. 3. Atrial fibrillation. 4. Diabetes. 5. Leukocytosis. 6. Anasarca. 7. Anemia. PLAN: 1. Continue fentanyl and Versed along with rocuronium. 2. Continue Lasix drip. 3. Enteral feedings. 4. Continue amiodarone. 5. Lovenox. Manuel Quigley MD [facility]/MODL /[id number]
--- NOTE | 2020-06-13 17:35 | Progress Note ---
DATE: 06/13/2020 Renal Progress Note SUBJECTIVE: Events over the past 24 hours were noted. The patient remains on a ventilator. PHYSICAL EXAMINATION: His last 24 hours I's and O's, his intake 3284, output 4819, net balance -1606. Blood pressure 131/47, pulse 92. GENERAL: The patient is intubated. He is on a ventilator. HEENT: The patient has facial edema. CARDIOVASCULAR: Regular rate and rhythm. LUNGS: Decreased breath sounds. Crackles high-pitched squeals bilaterally. ABDOMEN: Decreased bowel sounds. EXTREMITIES: Some edema of the feet. LABORATORY RESULTS: Sodium 142, potassium 3.8, chloride 89, bicarbonate 45, BUN and creatinine 29 and 0.6 respectively. IMPRESSION: 1. COVID infection. 2. COVID pneumonia. 3. Metabolic contraction alkalosis. 4. Hypokalemia. PLAN: The patient is on a Lasix drip and the potassium is low. The patient's potassium has been low for every time we check it even though we replaced the potassium is low. I will go ahead and give a stat dose of potassium 20 mEq KCl IV x1 now, and I will increase the scheduled potassium from 20 once a day to 40 b.i.d. The patient's prognosis is very poor. Ather MD LAWRENCE Singh/MIKE /[id number]
--- NOTE | 2020-06-13 19:00 | NUR ---
Report received. Assumed care. Assessment done. See interventions. Orally intubated with 8.0 FR ETT secured @ 24cm at the teeth. Vent settings: O2 85%, PEEP 10, RR 32 & PC above PEEP 26. R NGT with Vital HP @ 45ml/hr. IVs: Lasix @ 10mg/hr or 10ml/hr, Rocuronium @ 0.008 mcg/kg/min or 4.7ml/hr, Fentanyl @ 200 mcg/min or 25ml/hr & Versed @ 8mg/hr or 16ml/hr.
[2020-06-13] MEDS ORDERED: MIDAZOLAM HCL 5MG/ML 10ML VIAL 100 ML IV ONE (20:10)
--- NOTE | 2020-06-13 20:22 | Progress Note ---
DATE: 06/13/2020 CONSULTANTS: 1. Dr. Quigley, service counselor. 2. Dr. Robertson, Infectious Disease. 3. Dr. Neumann, Boiler Riveter. 4. Dr. Singh, Renal. SUBJECTIVE: The patient remains intubated in prone position and sedated. He is in sinus rhythm on the monitor. No changes overnight. PHYSICAL EXAMINATION: VITAL SIGNS: Temperature 99.5, pulse is 92, respirations 32, blood pressure 138/50, pulse ox is 94% on the vent. GENERAL: Sedated and intubated. HEENT: Normocephalic and atraumatic. CARDIOVASCULAR: Regular rate and rhythm. S1, S2 heard. LUNGS: Decreased breath sounds. ABDOMEN: Soft. NEURO: Sedated. MUSCULOSKELETAL: Bilateral lower extremities with slight edema. SKIN: Dry with sacral pressure ulcer and facial ulcers. : Vizcarra. LABORATORY DATA: WBC 19.59, hemoglobin 7.4, hematocrit 25.6, platelets 232. Sodium 142, potassium 3.1, CO2 of 45, BUN 29, creatinine 0.62, AST 27, ALT 16. IMPRESSION: 1. Acute respiratory failure due to COVID-19 pneumonia. Remains on intubated and sedated. Vent management per Pulmonology. 2. Leukocytosis, improving, continue on Cefepime per ID, WBC is 19.5 today. 3. Chronic anemia, hemoglobin is stable at 7.4, we will continue to monitor. 4. Hypertension, continue hydrochlorothiazide and hydralazine as needed. 5. New onset atrial fibrillation, currently on amiodarone p.o. per Cardiology. Sinus rhythm. 6. Generalized edema, diuretics per Renal. 7. Hypokalemia, potassium is 3.1 today. Replace per Renal. 8. Morbid obesity. 9. Deep vein thrombosis prophylaxis, continue Lovenox subcu. PLAN: Continue diuretics and antibiotics per ID. Management per Pulmonary and repeat labs in a.m. Dictated by MARAH Castro Alicja Rodriguez MD MY/MODL /[id number]
[2020-06-14] VITALS (19 sets, daily range): BP systolic 101–167; BP diastolic 44–58
--- NOTE | 2020-06-14 00:36 | NUR ---
Sponge bath given.
[2020-06-14] MEDS: ACETAMINOPHEN 325 MG/10 ML UDC NG PRN (01:30)
--- NOTE | 2020-06-14 01:30 | NUR ---
Temp 101.0. Tylenol elixir given per NGT.
[2020-06-14] MEDS: MIDAZOLAM HCL 5MG/ML 10ML VIAL 100 ML IV PRN ×3 (02:15→21:35)
[2020-06-14 05:45] LABS: BASOPHILS # (AUTO) 0.1 (0.0-0.1); BASOPHILS % 0.3 % (0.0-1.0); EOSINOPHILS # (AUTO) 1.7 (0.0-0.4); EOSINOPHILS % 8.6 % (0.0-6.0); HEMATOCRIT 24.6 % (38.2-49.6); HEMOGLOBIN 7.2 g/dL (14.0-18.0); LYMPHOCYTES # (AUTO) 2.5 (1.0-3.2); LYMPHOCYTES % 12.9 % (18.0-39.1); MEAN CORPUSCULAR HEMOGLOBIN 28.5 pg (28-32); MEAN CORPUSCULAR HGB CONC 29.3 g/dL (31-35); MEAN CORPUSCULAR VOLUME 97.2 fL (81-99); MONOCYTES # (AUTO) 1.4 (0.2-0.8); MONOCYTES % 7.2 % (4.4-11.3); NEUTROPHILS % 67.1 % (38.7-80.0); PLATELET COUNT 255 x10e3/uL (140-360); RED BLOOD COUNT 2.53 x10e6/uL (4.3-5.7); RED CELL DISTRIBUTION WIDTH 18.2 % (11.7-14.4)
[2020-06-14 06:07] LABS: ALANINE AMINOTRANSFERASE 16 IU/L (0-55); ALBUMIN 2.2 g/dL (3.5-5.0); ALBUMIN/GLOBULIN RATIO 0.5 (0.8-2.0); ALKALINE PHOSPHATASE 65 IU/L (40-150); ANION GAP 12.4 mmol/L (8-16); BLOOD UREA NITROGEN 34 mg/dL (7-26); BUN/CREATININE RATIO 49 (6-25); CALCIUM 8.7 mg/dL (8.4-10.2); CHLORIDE 89 mmol/L (98-107); CREATININE, SERUM 0.69 mg/dL (0.72-1.25); EST GLOMERULAR FILTRATION RATE > 60 ML/MIN (60-); GLUCOSE 144 mg/dL (74-118); POTASSIUM 3.4 mmol/L (3.5-5.1); SODIUM 145 mmol/L (136-145)
[2020-06-14 06:10] LABS: CARBON DIOXIDE 47 mmol/L (22-29)
[2020-06-14] MEDS: FUROSEMIDE INJ 100 MG in SODIUM CHLORIDE 0.9% 100 ML 90 ML IV SCH (06:42)
[2020-06-14] MEDS: CEFEPIME 1GM/NS 0.9% 50 ML 50 ML IV SCH ×3 (06:42→21:36)
--- NOTE | 2020-06-14 08:40 | Diagnostic Imaging Report ---
EXAMINATION: CHEST SINGLE (PORTABLE) INDICATION: Respiratory failure COMPARISON: Chest radiograph 06/11/2020 FINDINGS: LINES/TUBES:Support lines and tubes unchanged. LUNGS:The lungs are moderately inflated. Unchanged multifocal bilateral interstitial and airspace opacities. PLEURA:No pleural effusion or pneumothorax. MEDIASTINUM:The cardiomediastinal silhouette appears unchanged in size and shape. BONES/SOFT TISSUES:No acute osseous injury. ABDOMEN:No free air under the diaphragm. IMPRESSION: No significant interval change. Signed by: Nicki Durham MD on 06/14/2020 8:36 AM
[2020-06-14 09:20] LABS: ABG PCO2 85 mmHg (35-45); ABG PH 7.39 (7.35-7.45)
[2020-06-14 09:21] LABS: ABG HCO3 52 mmol/L (22-26); ABG PO2 81 mmHg (80-105); ABG TCO2 50
[2020-06-14] MEDS: HYDROCHLOROTHIAZIDE 25 MG TAB PO SCH (10:19)
[2020-06-14] MEDS: FAMOTIDINE 20 MG/2 ML VIAL IV SCH ×2 (10:19→18:10)
[2020-06-14] MEDS: AMIODARONE HCL 200 MG TAB PO SCH ×2 (10:19→18:10)
[2020-06-14] MEDS: POTASSIUM CHLORIDE 20MEQ/15ML UDC NG SCH ×2 (10:19→18:10)
[2020-06-14] MEDS: BALSAM PERU/CASTOR OIL 60 GM OINT...G. TP SCH (10:19)
[2020-06-14] MEDS: LACTULOSE SYRUP 20 GM/30 ML UDC PO SCH (10:19)
[2020-06-14] MEDS: ENOXAPARIN INJ 80 MG/0.8 ML SYR SC SCH ×2 (10:19→21:36)
--- NOTE | 2020-06-14 12:55 | NUR ---
infectious disease progress note Patient seen them chart reviewed June 14, 2020 The patient remains intubated in prone position and sedated. He is in sinus rhythm on the monitor. No changes overnight. PHYSICAL EXAMINATION:patient sedated and intubated intensive care unit vitals stable afebrile VITAL SIGNS: Temperature 99.5, pulse is 92, respirations 32, blood pressure 138/50, pulse ox is 94% on the vent. GENERAL: Sedated and intubated. HEENT: Normocephalic and atraumatic. not pale or icteric CARDIOVASCULAR: Regular rate and rhythm. S1, S2 heard. LUNGS: Decreased breath sounds. ABDOMEN: Soft. bowel sounds present NEURO: Sedated. MUSCULOSKELETAL: Bilateral lower extremities with slight edema. SKIN: Dry with sacral pressure ulcer and facial ulcers. : Vizcarra. LABORATORY DATA: WBC 19.59, hemoglobin 7.4, hematocrit 25.6, platelets 232. Sodium 142, potassium 3.1, CO2 of 45, BUN 29, creatinine 0.62, AST 27, ALT 16. IMPRESSION: 1. Acute respiratory failure due to COVID-19 pneumonia. Remains on intubated and sedated. Vent management per Pulmonology. 2. Leukocytosis, improving, continue on Cefepime per ID, WBC is 19.5 today. 3. Chronic anemia, hemoglobin is stable at 7.4, we will continue to monitor. 4. Hypertension, continue hydrochlorothiazide and hydralazine as needed. 5. New onset atrial fibrillation, currently on amiodarone p.o. per Cardiology. Sinus rhythm. 6. Generalized edema, diuretics per Renal. 7. Hypokalemia, potassium is 3.1 today. Replace per Renal. 8. Morbid obesity. 9. Deep vein thrombosis prophylaxis, continue Lovenox subcu. pneumonia continue with cefepime 14 days we will check CBC will follow clinically
--- NOTE | 2020-06-14 13:26 | Progress Note ---
DATE: SUBJECTIVE: The patient is now in a supine position. He is on a pressure control with a PEEP of 10 and a pressure control above PEEP of 26. His respiratory rate is set at 34. His FiO2 is set at 85%. He remains on Versed and fentanyl as well as rocuronium. PHYSICAL EXAMINATION: VITAL SIGNS: The patient's blood pressure is 120/60 and pulse is 100 to 110. HEENT: Shows no facial swelling or erythema. There is an oral endotracheal tube. LYMPHATIC: Shows no submandibular, cervical, or supraclavicular adenopathy. CARDIAC: Reveals regular rate and rhythm with normal S1 and S2. LUNGS: Auscultation of lungs reveals rhonchorous breath sounds bilaterally. There is no wheezing. ABDOMEN: Soft and nontender. There is no rebound or guarding. EXTREMITIES: Shows no leg edema or calf tenderness. There is no cyanosis or clubbing. SKIN: Shows no rashes. NEUROLOGICAL: Shows no focal abnormalities. LABORATORY DATA: White blood cell count is 19.4 and the hemoglobin is 7.2. The platelet count is 255. The BUN to creatinine ratio is 34 to 0.69. Other electrolytes are within normal limits. The albumin is 2.2. IMPRESSION: 1. Acute respiratory failure. 2. Viral pneumonia and COVID-19 infection. 3. Diabetes. 4. Atrial fibrillation. 5. Anemia. 6. Anasarca. PLAN: 1. Continue current ventilator settings and repeat ABG later today. 2. Continue fentanyl and Versed along with rocuronium. 3. Continue Lasix. 4. Continue enteral feedings. 5. Continue Lovenox. Greater than 35 minutes in direct critical care time. Manuel Quigley MD [facility]/MODL /[id number]
[2020-06-14] MEDS ORDERED: POTASSIUM CHLORIDE 20MEQ/100ML 100 ML IV ONE (13:45)
--- NOTE | 2020-06-14 14:30 | Progress Note ---
DATE: 06/14/2020 Renal Progress Note. SUBJECTIVE: Events over the past 24 hours were noted. The patient remains intubated. He is on a ventilator. PHYSICAL EXAMINATION: VITAL SIGNS: Blood pressure 120/58, pulse is 114, respiratory rate 36. Intake and output for the last 24 hours, the patient has had 3160 in and 3500 out, his net fluid balance is -340. GENERAL: The patient remains intubated. He is on ventilator and he is still kind of anasarca. CARDIOVASCULAR: Tachycardia, regular rhythm. LUNGS: and crackles bilaterally. ABDOMEN: Decreased bowel sounds. EXTREMITIES: The patient has edema, pretty much of all extremities, especially the arms. LABORATORY RESULTS: Hemoglobin and hematocrit 7.2 and 24.6 respectively. Sodium 145, potassium 3.4, chloride 89, bicarbonate 47, BUN and creatinine 34 and 0.69 respectively. IMPRESSION: 1. COVID pneumonia. 2. COVID infection. 3. Hypokalemia. 4. Contraction metabolic alkalosis. PLAN: The patient is on a Lasix drip right now. However, he developed a severe metabolic contraction alkalosis. I think I will hold the Lasix drip for about maybe 24 hours to see if the serum bicarbonate comes down, maybe I will go ahead and give him 2 or 3 doses of Diamox also. His potassium was increased yesterday, he is on 40 b.i.d. His potassium was just 3.4 today. It used to be much lower, but I will go ahead and give him a stat replacement of 20 mEq. We will continue the scheduled potassium. I will start Diamox today. Ather MD LAWRENCE Singh/MIKE /[id number]
[2020-06-14] MEDS: ACETAZOLAMIDE SODIUM 500 MG/VIAL IV SCH ×2 (15:50→21:36)
--- NOTE | 2020-06-14 18:00 | NUR ---
Dr. Quigley at bedside. Right anterior chest tube removed by Dr. Quigley without incident. Patient's oxygen sats 94%. Patient remains sedated and on vent. Dressing to site with vasoline gauze, dry gauze and micropore tape.
--- NOTE | 2020-06-14 18:25 | Progress Note ---
DATE: 06/14/2020 CONSULTANTS: 1. Dr. Quigley, hydrological technical officer. 2. Dr. Robertson, Infectious Disease. 3. Dr. Neumann, Cardiology. 4. Dr. Singh, Renal. SUBJECTIVE: The patient is sedated and intubated, in prone position. He remains stable, no events noted overnight. PHYSICAL EXAMINATION: VITAL SIGNS: Temperature 98.7, pulse is 91, respirations 32, blood pressure 120/58, and pulse ox 94% on the vent. GENERAL: Sedated and intubated. HEENT: Normocephalic, atraumatic. CARDIOVASCULAR: Regular rate and rhythm. LUNGS: Decreased breath sounds. ABDOMEN: Soft. NEURO: Sedated. MUSCULOSKELETAL: Lower extremity with class 1 edema. SKIN: Dry with sacral and facial pressure ulcers. : Vizcarra. LABORATORY DATA: WBC 19.4, hemoglobin 7.2, hematocrit 25.6, and platelets 255. Sodium 145, potassium 3.4, chloride 89, CO2 of 47, creatinine 0.69, and estimated GFR is greater than 60. AST 27, ALT 16. IMAGING DATA: Chest x-ray, no significant interval change. IMPRESSION: 1. Acute respiratory failure due to coronavirus disease-19 pneumonia. Intubated and sedated. Vent management per hydrological technical officer. 2. Leukocytosis. Stable, continue cefepime per Infectious Disease. 3. Chronic anemia. Hemoglobin is 7.2. We will continue to monitor closely. 4. Hypertension. Continue hydrochlorothiazide and hydralazine as needed. 5. New onset atrial fibrillation. Currently on amiodarone p.o. per Cardiology. Rate is controlled, sinus rhythm. 6. Generalized edema. Diuretics per Renal. 7. Hypokalemia. Potassium is 3.4. Replace per Renal. 8. Deep vein thrombosis prophylaxis. Continue Lovenox subcu. PLAN: To continue antibiotics and supportive management. Dictated by MARAH Castro Alicja Rodriguez MD MY/MODL /[id number]
[2020-06-14] MEDS: FENTANYL 2000MCG/NS 250 250 ML IV PRN (21:36)
--- NOTE | 2020-06-14 23:32 | Progress Note ---
DATE: 06/14/2020 Cardiology Progress Note SUBJECTIVE: Remains intubated and sedated. OBJECTIVE: VITAL SIGNS: Temperature 98.7, heart rate 91, blood pressure 167/58, respiratory rate 32, O2 saturation 94%. GENERAL: Intubated and sedated. NECK: Supple. CHEST: With decreased breath sounds. CARDIOVASCULAR: Regular rate and rhythm with normal S1 and S2. ABDOMEN: Soft. Bowel sounds positive. EXTREMITIES: With significant edema to both upper as well as lower extremities. Normothermia in extremities. MEDICATIONS: Reviewed. He has been on: 1. Lasix drip. Nephrology has been consulted. Diuretics temporarily on hold. 2. Hydrochlorothiazide 25 mg daily. 3. KCl 40 mEq b.i.d. 4. Lovenox 80 mg subcu q.12 hours. 5. Amiodarone 200 mg b.i.d. 6. Acetazolamide 250 mg every 12 hours. STUDIES: Reviewed. Sodium 145, potassium 3.4, chloride 89, bicarbonate 47, significant contraction alkalosis, BUN 34, creatinine 0.69, glucose 144. White blood cells 19.4, hemoglobin 7.2, and platelets 255. INR 1.46. AST 27, ALT 16, alkaline phosphatase 65. ASSESSMENT: A 65-year-old man, presents with coronavirus disease 2019 infection, community-acquired pneumonia, acute respiratory failure, significant anemia, paroxysmal atrial fibrillation, significant volume overload, persistent prolonged respiratory failure, acute diastolic heart failure, and history of hypertension. RECOMMENDATIONS: 1. Continue current cardiovascular medications and monitor H and H. 2. Remains intravascularly significantly volume overload in spite of signs suggestive of decreased intravascular volume. Nephrology managing volume status. We will defer diuretic decisions to Dr. Archer's expertise. Mario Harris MD [facility]/MODL /[id number]
[2020-06-15] VITALS (21 sets, daily range): BP systolic 109–135; BP diastolic 41–56
[2020-06-15] MEDS: FENTANYL 2000MCG/NS 250 250 ML IV PRN ×4 (05:21→22:57)
[2020-06-15] MEDS: MIDAZOLAM HCL 5MG/ML 10ML VIAL 100 ML IV PRN ×4 (05:22→19:30)
[2020-06-15] MEDS: CEFEPIME 1GM/NS 0.9% 50 ML 50 ML IV SCH ×3 (05:55→22:00)
[2020-06-15 07:06] LABS: BASOPHILS % 0.3 % (0.0-1.0); EOSINOPHILS # (AUTO) 1.8 (0.0-0.4); EOSINOPHILS % 11.9 % (0.0-6.0); HEMATOCRIT 24.2 % (38.2-49.6); LYMPHOCYTES # (AUTO) 1.9 (1.0-3.2); LYMPHOCYTES % 12.4 % (18.0-39.1); MEAN CORPUSCULAR HEMOGLOBIN 27.8 pg (28-32); MEAN CORPUSCULAR HGB CONC 28.1 g/dL (31-35); MEAN CORPUSCULAR VOLUME 98.8 fL (81-99); MONOCYTES # (AUTO) 1.1 (0.2-0.8); MONOCYTES % 6.8 % (4.4-11.3); NEUTROPHILS # (AUTO) 10.2 (2.1-6.9); NEUTROPHILS % 65.8 % (38.7-80.0); PLATELET COUNT 252 x10e3/uL (140-360); RED BLOOD COUNT 2.45 x10e6/uL (4.3-5.7); RED CELL DISTRIBUTION WIDTH 18.9 % (11.7-14.4)
[2020-06-15 07:11] LABS: HEMOGLOBIN 6.8 g/dL (14.0-18.0)
[2020-06-15 07:28] LABS: ALANINE AMINOTRANSFERASE 17 IU/L (0-55); ALBUMIN 2.2 g/dL (3.5-5.0); ALBUMIN/GLOBULIN RATIO 0.5 (0.8-2.0); ALKALINE PHOSPHATASE 62 IU/L (40-150); BLOOD UREA NITROGEN 38 mg/dL (7-26); BUN/CREATININE RATIO 57 (6-25); CALCIUM 8.9 mg/dL (8.4-10.2); CHLORIDE 91 mmol/L (98-107); CREATININE, SERUM 0.67 mg/dL (0.72-1.25); EST GLOMERULAR FILTRATION RATE > 60 ML/MIN (60-); GLUCOSE 144 mg/dL (74-118); SODIUM 147 mmol/L (136-145)
[2020-06-15 07:40] LABS: CARBON DIOXIDE 47 mmol/L (22-29)
[2020-06-15 07:58] LABS: ABG PH 7.41 (7.35-7.45)
[2020-06-15 07:59] LABS: ABG HCO3 47 mmol/L (22-26); ABG PCO2 73 mmHg (35-45); ABG PO2 67 mmHg (80-105); ABG TCO2 49
[2020-06-15 08:19] LABS: EOSINOPHILS % (MANUAL) 16 % (0-7); LYMPHOCYTES % (MANUAL) 14 % (19-48); MONOCYTES % (MANUAL) 4 % (3.4-9.0); NEUTROPHILS % (MANUAL) 66 % (40-74); STOMATOCYTES MODERATE
[2020-06-15 08:20] LABS: ANISOCYTOSIS SLIGHT; PLATELET ESTIMATE ADEQUATE; PLATELET MORPHOLOGY COMMENT MODERATE LARGE
[2020-06-15] MEDS ORDERED: POTASSIUM CHLORIDE 20MEQ/100ML 200 ML IV ONE (09:15)
[2020-06-15] MEDS ORDERED: POTASSIUM CHLORIDE 20MEQ/100ML 100 ML IV PRN (09:15)
[2020-06-15] MEDS ORDERED: SODIUM CHLORIDE 0.9% 250ML 250 ML IV SCH (09:15)
--- NOTE | 2020-06-15 09:40 | Progress Note ---
DATE: SUBJECTIVE: The patient is currently in the supine position. He remains on Versed, fentanyl, and rocuronium. His PRBC with pressure control. His PEEP is set at 10 with a pressure above PEEP of 26. His respiratory rate is 32. His FiO2 is set at 85%. PHYSICAL EXAMINATION: VITAL SIGNS: The patient is afebrile. The blood pressure is 121/43 and the saturation is 94%. The pulse is 71. HEENT: Shows no facial swelling or erythema. LYMPHATIC: Shows no submandibular, cervical, or supraclavicular adenopathy. CARDIAC: Reveals regular rate and rhythm with normal S1, S2. LUNGS: Auscultation of lungs shows decreased breath sounds at the bases. There is no wheezing. ABDOMEN: Soft, nontender. There is no rebound or guarding. EXTREMITIES: Shows no leg edema or calf tenderness. There is no cyanosis or clubbing. SKIN: Shows no rashes. NEUROLOGICAL: Shows the patient to be sedated and paralyzed. LABORATORY DATA: The hemoglobin is 6.8 and white blood cell count is 15.5. The platelet count is 252. The BUN to creatinine ratio is 38 to 0.67 and the potassium is 3. The sodium is 147. Albumin is 2.2. RADIOGRAPHIC DATA: Chest x-ray shows bilateral infiltrates. IMPRESSION: 1. Acute respiratory failure. 2. Viral pneumonia and coronavirus disease - 19 infection. 3. Anemia secondary to chronic blood loss. 4. Moderate protein-calorie malnutrition. 5. Diabetes. 6. Atrial fibrillation. 7. Anasarca. PLAN: 1. The patient to receive packed red blood cells today. 2. Continue Lasix drip along with albumin as needed. 3. Continue fentanyl and Versed and try and wean rocuronium. 4. Continue current ventilator settings and repeat ABG later today. 5. Continue Lovenox. Greater than 35 minutes in direct critical care time. Manuel Quigley MD [facility]/MODL /[id number]
[2020-06-15] MEDS: BALSAM PERU/CASTOR OIL 60 GM OINT...G. TP SCH (10:00)
[2020-06-15] MEDS: AMIODARONE HCL 200 MG TAB PO SCH ×2 (10:00→19:04)
[2020-06-15] MEDS: LACTULOSE SYRUP 20 GM/30 ML UDC PO SCH (10:00)
[2020-06-15] MEDS: HYDROCHLOROTHIAZIDE 25 MG TAB PO SCH (10:00)
[2020-06-15] MEDS: ENOXAPARIN INJ 80 MG/0.8 ML SYR SC SCH ×2 (10:00→21:33)
[2020-06-15] MEDS: ACETAZOLAMIDE SODIUM 500 MG/VIAL IV SCH ×2 (10:00→21:33)
[2020-06-15] MEDS: FAMOTIDINE 20 MG/2 ML VIAL IV SCH ×2 (10:00→19:04)
[2020-06-15] MEDS: POTASSIUM CHLORIDE 20MEQ/15ML UDC NG SCH ×2 (10:00→19:04)
--- NOTE | 2020-06-15 14:21 | Progress Note ---
DATE: 06/15/2020 Renal Progress Note SUBJECTIVE: Events over the past 24 hours have been noted. The patient remains intubated on a ventilator. He is sedated. PHYSICAL EXAMINATION: VITAL SIGNS: Blood pressure 121/43, pulse 71, afebrile. GENERAL: The patient remains on the ventilator. He has 85% FiO2. He has PEEP also. His intake and output for the past 24 hours, he has had 1338 in and 3500 out, net fluid balance is 2162. The patient is intubated on a ventilator. CARDIOVASCULAR: Regular rate and rhythm. LUNGS: Crackles and high-pitched squeals bilaterally. ABDOMEN: Decreased bowel sounds. EXTREMITIES: The patient has anasarca, extensive edema all over. LABORATORY RESULTS: Sodium 147, potassium 3, chloride 91, bicarbonate 27, BUN and creatinine 38 and 0.6 respectively. Albumin is 2.2. IMPRESSION: 1. COVID pneumonia. 2. Respiratory failure. 3. Anasarca. 4. Total body water expansion. 5. Contraction metabolic alkalosis. 6. Hypokalemia. The patient was on a Lasix drip yesterday. I stopped the Lasix drip because of the contraction metabolic alkalosis and also of his hypokalemia. I kept him on the hydrochlorothiazide and I started him on some Diamox. The patient is still volume overloaded. I think at this time he is also requiring much FiO2 from the vent. If we introduce Lasix, his contraction alkalosis will never get better. I will go ahead and try to ultrafilter him to remove fluid and see if that helps with his overall edema, anasarca and also his respiratory failure. We will discuss with Cardiology. We will discuss with Dr. Quigley as well. Ather MD LAWRENCE Singh/MODL /[id number]
--- NOTE | 2020-06-15 15:41 | Progress Note ---
DATE: 06/15/2020 Cardiology Progress Note SUBJECTIVE: Remains intubated and sedated. OBJECTIVE: VITAL SIGNS: Temperature 97.6, heart rate 86, respiratory rate 32, blood pressure 121/43, and O2 saturation 95% on vent support. GENERAL: Intubated and sedated. NECK: Supple. CHEST: Rales and decreased breath sounds. CARDIOVASCULAR: Regular rate and rhythm. Normal S1 and S2. ABDOMEN: Soft. Bowel sounds positive. EXTREMITIES: With significant edema to all four extremities. Normothermic extremities. CARDIOVASCULAR MEDICATIONS: Reviewed. Amiodarone 200 mg b.i.d., KCl 40 mEq b.i.d., hydrochlorothiazide 25 mg daily, Lovenox 80 mg subcutaneous q.12 hours, and PRBC transfusion underway today. LABORATORY DATA: White blood cells 15.5, hemoglobin 6.8, down from 7.2, has been slowly trending down throughout admission, and platelets 252. Sodium 147, potassium 3, chloride 91, bicarbonate 47, BUN 38, creatinine 0.6, glucose 154, and magnesium 2.2. AST 31 and ALT 17. ASSESSMENT: A 65-year-old man with COVID-19 infection, community-acquired pneumonia, acute respiratory failure, anemia, paroxysmal atrial fibrillation, volume overload, presented with acute respiratory failure, acute diastolic heart failure, and history of hypertension. RECOMMEND: 1. Fecal occult blood test check given recurrent anemia, requiring PRBC transfusion. 2. If gross bleeding observed, please hold Lovenox. Discussed with nursing staff. 3. Continue rest of cardiovascular medications. Volume optimization per Renal expertise. Mario Harris MD [facility]/MODL /[id number]
--- NOTE | 2020-06-15 16:13 | NUR ---
The patient remains intubated in prone position and sedated. He is in sinus rhythm on the monitor. No changes overnight. PHYSICAL EXAMINATION:patient sedated and intubated intensive care unit vitals stable afebrile VITAL SIGNS: stable GENERAL: Sedated and intubated. HEENT: Normocephalic and atraumatic. not pale or icteric CARDIOVASCULAR: Regular rate and rhythm. S1, S2 heard. LUNGS: Decreased breath sounds. ABDOMEN: Soft. bowel sounds present NEURO: Sedated. MUSCULOSKELETAL: Bilateral lower extremities with slight edema. SKIN: Dry with sacral pressure ulcer and facial ulcers. : Vizcarra. LABORATORY DATA: WBC 19.59, hemoglobin 7.4, hematocrit 25.6, platelets 232. Sodium 142, potassium 3.1, CO2 of 45, BUN 29, creatinine 0.62, AST 27, ALT 16. IMPRESSION: 1. Acute respiratory failure due to COVID-19 pneumonia. Remains on intubated and sedated. Vent management per Pulmonology. 2. Leukocytosis, improving, continue on Cefepime per ID, WBC is 19.5 today. 3. Chronic anemia, hemoglobin is stable at 7.4, we will continue to monitor. 4. Hypertension, continue hydrochlorothiazide and hydralazine as needed. 5. New onset atrial fibrillation, currently on amiodarone p.o. per Cardiology. Sinus rhythm. 6. Generalized edema, diuretics per Renal. 7. Hypokalemia, potassium is 3.1 today. Replace per Renal. 8. Morbid obesity. 9. Deep vein thrombosis prophylaxis, continue Lovenox subcu. pneumonia continue with cefepime 14 days we will check CBC will follow clinically
--- NOTE | 2020-06-15 16:31 | Progress Note ---
DATE: 06/15/2020 CONSULTANTS: 1. Dr. Quigley, tare weigher. 2. Dr. Robertson, Infectious Disease. 3. Dr. Neumann, Cardiology. 4. Dr. Singh, Renal. SUBJECTIVE: Sedated and intubated in supine position. He is required to have HD cath placed for ultrafiltration. PHYSICAL EXAMINATION: VITAL SIGNS: Temperature is 97.6, pulse is 71, respirations 32, blood pressure 121/43, pulse ox is 94% on the vent. GENERAL: Sedated and intubated. CARDIOVASCULAR: Regular rate and rhythm. LUNGS: Decreased breath sounds. ABDOMEN: Soft. NEURO: Sedated. MUSCULOSKELETAL: Generalized edema. SKIN: Dry with multiple pressure ulcers. LABORATORY DATA: WBC 15.50, hemoglobin 6.8, hematocrit 24.2, platelet is 252. Sodium 147, potassium 3.0, CO2 47, creatinine 0.67, estimated GFR is greater than 60 blood sugar glucose 144, magnesium 2.2, AST 31, ALT 17. IMPRESSION: 1. Acute respiratory failure due to COVID-19 pneumonia. He remains intubated and sedated, vent management per tare weigher. 2. Acute on chronic anemia. Hemoglobin is 6.8. Status post 1 unit PRBC transfusions this morning. 3. Leukocytosis. Stable at 15.5. Continue cefepime per Infectious Disease. 4. Hypertension. Continue hydrochlorothiazide and hydralazine as needed. 5. Atrial fibrillation. Currently sinus rhythm, continue amiodarone per Cardiology. 6. Generalized edema. Diuretics per Renal. HD catheter to be placed for ultrafiltration. 7. Hypokalemia. Potassium is 3.0. Replace. 8. Deep vein thrombosis prophylaxis. Continue Lovenox subcu. PLAN: To continue antibiotics, status post 1 unit of PRBC, and HD cath to be placed for ultrafiltration to help with edema and metabolic alkalosis. Dictated by MARAH Castro Alicja Rodriguez MD MY/MODL /[id number]
--- NOTE | 2020-06-15 17:47 | Operative Report ---
DATE OF PROCEDURE: SURGEON: Manuel Quigley MD PROCEDURE: Trialysis catheter placement under ultrasound guidance. PREOPERATIVE DIAGNOSIS: Acute renal failure. POSTOPERATIVE DIAGNOSIS: Acute renal failure. CONSENT: Consent was obtained from daughter. MEDICATIONS: 1% lidocaine for local anesthesia. The patient was also on Versed and fentanyl at the time of the procedure. DESCRIPTION OF PROCEDURE: The patient's left groin was prepped sterilely with chlorhexidine. A full length sterile drape, sterile gown, sterile mask, and sterile gloves were used. 1% lidocaine was used to anesthetize the area in the groin near the femoral vein. An ultrasound machine was used to visualize the femoral vein. The femoral vein was cannulated under direct visualization with a 16-gauge needle. A wire was passed through the needle. A series of dilators were used to open the skin and a Trialysis catheter was placed over the wire by the Seldinger technique. All the ports flushed. COMPLICATIONS: None. ESTIMATED BLOOD LOSS: None. Manuel Quigley MD [facility]/MODL /[id number]
[2020-06-15] MEDS ORDERED: HEPARIN SOD (PORCINE) 1000 UNIT/ML SDV ONE (17:58)
[2020-06-15] MEDS ORDERED: SODIUM CHLORIDE 0.9% 1000ML 2,000 ML ONE (17:59)
[2020-06-15] MEDS ORDERED: HEPARIN SOD (PORCINE) 1000 UNIT/ML SDV IV PRN (19:45)
[2020-06-15] MEDS ORDERED: SODIUM CHLORIDE 0.9% 1000ML 2,000 ML IV PRN (19:45)
[2020-06-15] MEDS ORDERED: ALBUMIN 25% 12.5GM 0.25 GM/ML BTL IV PRN (19:45)
[2020-06-15] MEDS ORDERED: MANNITOL 25% 12.5GM/50 ML VIAL IV PRN (19:45)
[2020-06-16] VITALS (27 sets, daily range): BP systolic 105–136; BP diastolic 36–50
[2020-06-16] MEDS: MIDAZOLAM HCL 5MG/ML 10ML VIAL 100 ML IV PRN ×3 (01:29→21:30)
[2020-06-16] MEDS: CEFEPIME 1GM/NS 0.9% 50 ML 50 ML IV SCH ×3 (06:23→21:30)
[2020-06-16 06:27] LABS: BASOPHILS # (AUTO) 0.1 (0.0-0.1); BASOPHILS % 0.3 % (0.0-1.0); EOSINOPHILS # (AUTO) 1.9 (0.0-0.4); EOSINOPHILS % 11.9 % (0.0-6.0); HEMATOCRIT 27.6 % (38.2-49.6); HEMOGLOBIN 8.1 g/dL (14.0-18.0); LYMPHOCYTES # (AUTO) 2.4 (1.0-3.2); LYMPHOCYTES % 14.7 % (18.0-39.1); MEAN CORPUSCULAR HGB CONC 29.3 g/dL (31-35); MEAN CORPUSCULAR VOLUME 98.9 fL (81-99); MONOCYTES # (AUTO) 1.3 (0.2-0.8); MONOCYTES % 7.9 % (4.4-11.3); NEUTROPHILS # (AUTO) 10.3 (2.1-6.9); NEUTROPHILS % 62.8 % (38.7-80.0); PLATELET COUNT 230 x10e3/uL (140-360); RED BLOOD COUNT 2.79 x10e6/uL (4.3-5.7); RED CELL DISTRIBUTION WIDTH 19.1 % (11.7-14.4)
[2020-06-16 07:10] LABS: ALANINE AMINOTRANSFERASE 20 IU/L (0-55); ALBUMIN 2.3 g/dL (3.5-5.0); ALBUMIN/GLOBULIN RATIO 0.5 (0.8-2.0); ALKALINE PHOSPHATASE 74 IU/L (40-150); ANION GAP 12.1 mmol/L (8-16); BLOOD UREA NITROGEN 38 mg/dL (7-26); BUN/CREATININE RATIO 55 (6-25); CALCIUM 8.6 mg/dL (8.4-10.2); CARBON DIOXIDE 39 mmol/L (22-29); CHLORIDE 99 mmol/L (98-107); CREATININE, SERUM 0.69 mg/dL (0.72-1.25); EST GLOMERULAR FILTRATION RATE > 60 ML/MIN (60-); GLUCOSE 138 mg/dL (74-118); POTASSIUM 4.1 mmol/L (3.5-5.1); SODIUM 146 mmol/L (136-145)
--- NOTE | 2020-06-16 08:23 | NUR ---
Kathie Quigley at bedside ABG done , phoned and patient is on list for dialysis today see new orders and changes.
--- NOTE | 2020-06-16 08:28 | Diagnostic Imaging Report ---
EXAM: CHEST SINGLE (PORTABLE) DATE: 06/16/2020 5:15 AM INDICATION: For pneumonia, intubated COMPARISON: 06/14/2020 FINDINGS: Endotracheal tube and left-sided PICC line identified in stable position. Enteric tube noted coursing below the diaphragm. Again identified are bilateral multifocal interstitial and airspace opacities, grossly unchanged from prior examination. There is no evidence for pneumothorax or significant bony pleural effusion. The cardiomediastinal silhouette is stable in appearance. No acute osseous abnormality is identified. IMPRESSION: No significant interval change from 06/14/2020. Signed by: Dr. Josemanuel Marin MD on 06/16/2020 8:24 AM
--- NOTE | 2020-06-16 09:18 | Progress Note ---
DATE: SUBJECTIVE: The patient is still in supine position. He received ultrafiltration last night and 2000 mL were removed. He remains on a PRVC mode of ventilation with pressure control. His rate is set at 32 and his PEEP is set at 10. His pressure above PEEP is 26. His exhaled tidal volumes are 400-410 mL. His minute ventilation is 14 to 15. He is afebrile. T-max is 99.9. PHYSICAL EXAMINATION: VITAL SIGNS: The blood pressure is 109/42, saturation is 96% on the above settings. His pulse is 82. He is on Versed at 7 along with fentanyl at 300 and rocuronium. HEENT: Shows no facial swelling or erythema. LYMPHATIC: Shows no submandibular, cervical, or supraclavicular adenopathy. There is a PICC line in place as well as an arterial line. There is a left femoral dialysis catheter. CARDIAC: Reveals regular rate and rhythm. Normal S1, S2. LUNGS: Auscultation of lungs shows decreased breath sounds at the bases. There is no wheezing. ABDOMEN: Soft, nontender. There is no rebound or guarding. EXTREMITIES: Shows no leg edema or calf tenderness. There is no cyanosis or clubbing. SKIN: Shows no rashes. NEUROLOGICAL: Shows no focal abnormalities. LABORATORY DATA: White blood cell count is 16.3 and hemoglobin is 8.1. The platelet count is 230. The BUN to creatinine ratio is 38 to 0.69. Other electrolytes are within normal limits. The albumin is 2.3. IMPRESSION: 1. Acute respiratory failure. 2. Viral pneumonia COVID-19 infection. 3. Anemia secondary to chronic blood loss. 4. Moderate protein-calorie malnutrition. 5. Diabetes. 6. Atrial fibrillation. 7. Anasarca. PLAN: 1. The patient is scheduled to receive ultrafiltration again today. 2. Repeat ABG and adjust current ventilator settings. 3. Change PICC line. 4. Continue cefepime. 5. Continue Diamox. 6. Continue to monitor blood counts. 7. Continue enteral feedings. 8. Case discussed with daughter, Respiratory, Nursing, Nephrology, Internal Medicine, and administration. Greater than 35 minutes in direct critical care time. Manuel Quigley MD [facility]/MODL /[id number]
[2020-06-16] MEDS: AMIODARONE HCL 200 MG TAB PO SCH ×2 (09:31→17:18)
[2020-06-16] MEDS: FAMOTIDINE 20 MG/2 ML VIAL IV SCH ×2 (09:31→17:18)
[2020-06-16] MEDS: ACETAZOLAMIDE SODIUM 500 MG/VIAL IV SCH ×2 (09:31→21:30)
[2020-06-16] MEDS: ENOXAPARIN INJ 80 MG/0.8 ML SYR SC SCH ×2 (09:32→21:30)
--- NOTE | 2020-06-16 09:48 | NUR ---
Phoned and obtained consent from daughter Mackenzie Bob to changed Peripherally Inserted Central Catheter (PICC) witness by Anita Leigh RN / Charge Nurse signed and placed on chart and phoned radiology dept informing consent obtained
[2020-06-16] MEDS: POTASSIUM CHLORIDE 20MEQ/15ML UDC NG SCH ×2 (10:06→17:18)
[2020-06-16] MEDS: BALSAM PERU/CASTOR OIL 60 GM OINT...G. TP SCH (10:09)
[2020-06-16] MEDS: LACTULOSE SYRUP 20 GM/30 ML UDC PO SCH (10:09)
[2020-06-16] MEDS: HYDROCHLOROTHIAZIDE 25 MG TAB PO SCH (10:09)
[2020-06-16 10:24] LABS: ABG HCO3 39 mmol/L (22-26); ABG PCO2 65 mmHg (35-45); ABG PH 7.39 (7.35-7.45); ABG PO2 103 mmHg (80-105); ABG TCO2 41
--- NOTE | 2020-06-16 11:20 | NUR ---
PICC line staff here unable to do Picc replacement without [employer] approval. I phoned Dr Archer office spoke with Samantha and left message if ok to place PICC line.
--- NOTE | 2020-06-16 12:01 | NUR ---
Dr Archer in unit ok with replacing PICC Line / Tenya staff here and he spoke with Dr Quigley
[2020-06-16] MEDS: FENTANYL 2000MCG/NS 250 250 ML IV PRN ×2 (12:55→19:18)
--- NOTE | 2020-06-16 13:44 | Progress Note ---
DATE: 06/16/2020 Renal Progress Note. SUBJECTIVE: Events over the past 24 hours have been noted. The patient underwent ultrafiltration session yesterday, 2 L were removed. The patient remains on the ventilator. He is on 80% FiO2. OBJECTIVE: VITAL SIGNS: Blood pressure 114/41, pulse 79, respirations about 32. GENERAL: The patient remains on a ventilator. He still has anasarca. CARDIOVASCULAR: Regular rate and rhythm. LUNGS: Crackles and high-pitched squeals bilaterally. ABDOMEN: Decreased bowel sounds. EXTREMITIES: The patient has edema all over. LABORATORY RESULTS: Sodium 146, potassium 4.1, chloride 99, bicarbonate 39, BUN and creatinine 38 and 0.7 respectively. IMPRESSION/PLAN: 1. COVID pneumonia. 2. Respiratory failure. 3. Anasarca. 4. Total body water expansion. 5. Contraction metabolic alkalosis. The patient is off the Lasix drip. A Jaswinder catheter was placed yesterday in the left femoral area and the patient underwent ultrafiltration. We removed 2 L yesterday. He is scheduled to undergo another ultrafiltration today. I will try to ultrafilter about 2-3L and this ultrafiltration session will be about 3 hours or so. He likely will need ultrafiltration for the next few days. Ather MD LAWRENCE Singh/SHIRLEYL /[id number]
--- NOTE | 2020-06-16 14:01 | Diagnostic Imaging Report ---
EXAM: CHEST XRAY LINE PLACEMENT DATE: 06/16/2020 12:00 PM INDICATION: PICC placement COMPARISON: Earlier 06/16/2020 FINDINGS: There has been interval placement of a right-sided PICC line with distal tip terminating over the proximal SVC. Left-sided PICC line and endotracheal tube identified in stable position. Enteric tube noted coursing below the diaphragm. Again identified are multifocal interstitial and airspace opacity throughout the lungs bilaterally, unchanged. No evidence for pneumothorax or significant pleural effusion. Cardiomediastinal silhouette is stable in appearance. No acute osseous abnormality is identified. IMPRESSION: Interval placement of a right-sided PICC line with distal tip terminating over the SVC. Otherwise, no significant interval change from earlier 06/16/2020. Signed by: Dr. Josemanuel Marin MD on 06/16/2020 1:47 PM
[2020-06-16 14:35] LABS: ABG PH 7.33 (7.35-7.45)
[2020-06-16 14:36] LABS: ABG HCO3 39 mmol/L (22-26); ABG PCO2 75 mmHg (35-45); ABG PO2 64 mmHg (80-105); ABG TCO2 41
--- NOTE | 2020-06-16 14:45 | NUR ---
Dr Quigley in unit informed of patient 02 sats 87-91 % since large BM at 1430 states ok
--- NOTE | 2020-06-16 16:12 | NUR ---
Nutrition Intervention Note RD Recommendation(s) for Physician: -Continue Pivot 1.5 at goal rate of 45 ml/hr (to provide 1620 kcal and 101 gm protein) -Pt may be fed when in prone position at goal rate in reverse Trendelenburg with HOB at 10-25 degrees. -Fluid/water management per MD Plan of Care: RD following, monitoring for tolerance and adequacy, tube feed recommendation Nutrition reason for involvement: follow up RD Assessment 06/16: Follow up. Chart reviewed. Pt remains intubated and is in the supine position. Pts tube feeding is at goal rate of 45 mL/h which is meeting needs. Will continue to monitor 06/13: Follow up. Pt remains intubated and paralyzed requiring intermittent proning. Pt currently on Levophed at 8 mcg/min. TF continues to meet >75% of estimated needs. Chart reviewed. Will continue to monitor. 06/09: Follow up. Pt remains intubated and sedated. It is documented that pts tube feed is at 35 mL/hr. It is noted that pt has been in the prone position overnight. Will continue to monitor 06/06: Follow up. Pt remains intubated, sedated, and paralyzed. No pressor support. Pt continues on TF of Vital HP, infusing at 20 ml/hr at time of visit- RN unavailable to discuss rate. Pt not meeting needs with current TF > [address] Quigley regarding TF and goal rate, MD amenable to continuing goal rate while in prone position as it is not contraindicated. RD to modify TF order per MD. Chart reviewed. Will continue to monitor. 06/02: Follow up. Chart reviewed. Pt remains intubated and sedated. Pt is receiving Vital HP @ 30 mL/hr at this time - not meeting nutritional needs. Current recommendations remain appropriate. Will continue to monitor. 05/29: Follow up. Chart reviewed. Pt remains intubated and sedated. MD note indicates that pt remains in the prone position. Pt is receiving Vital HP @ 20 mL/hr at this time. Current recommendations remain appropriate. Will continue to monitor. 05/24: Follow up. Pt remains intubated and sedated, requiring to be proned- no paralytic currently. Vital HP infusing at goal rate, providing >75% of estimated needs. Chart reviewed. Current TF rec's remain appropriate. Will continue to monitor. 05/22: Follow up. Pt remains intubated, paralyzed, and sedated. TF documented as Glucerna 1.2 at 30 ml/hr currently, not meeting needs. Pt requiring proning at times. Pt with chest tubes to output. Current TF rec's remain appropriate. Chart reviewed. Will continue to monitor. 05/17: Follow up. Chart reviewed. Pt remains intubated. RN reports that pts tube feeding is at 10 mL/hr at this time and pt is in the prone position. Current recommendations remain appropriate. Will continue to monitor. 05/12: Pt was intubated yesterday and tube feeding was ordered. It is recorded that pt consumed 25% of breakfast on 05/10 and was previously consuming 50-100% of meals. Recommendations provided. Will continue to monitor. 05/09: 65 YOM admitted for hypoxia and pneumonia due to COVID-19. Pt assessed today for LOS. Attempted to call pt's room x 2, no answer- unable to obtain hx at this time. No wt loss or poor intake indicated at admit per MD notes. Pt with 50-100% intake since admit. Pt currently on Vapotherm per current respiratory status. Labs and meds reviewed. LBM 05/08, skin intact. Chart reviewed. Will continue to monitor. Principal Problems/Diagnoses: hypoxia, pneumonia due to COVID-19 PMH: HTN, HLD GI: round, soft abdomen, last recorded BM 06/12 Skin: stage 2 pressure ulcer/suspected DTI left ear, stage 2 pressure ulcer bilateral cheek, stage 2 pressure ulcer lower urethral meatus Labs: 06/16: Na 146, K 4.1, BUN 38, Cr 0.69, Glu 138, AST 35 06/13: Na 142, K 3.1, BUN 29, Cr 0.62, Gluc 123, Ca 8.8 06/09: Na 148, K 4.5, BUN 32, Cr 0.56, Glu 160 06/06: Na 147, K 3.3, BUN 22, Cr 0.62, Gluc 135, Ca 9 06/02: Na 140, K 3.5, BUN 24, Cr 0.66, Glu 116 05/29: Na 141, K 3.9, BUN 24, Cr 0.66, Glu 87, Ca 9.5 05/24: Na 147, K 3, BUN 27, Cr 0.61, Gluc 100, POC Gluc 123-126, Ca 6.3, Mg 1.5 05/22: Na 143, K 4.5, BUN 28, Cr 0.77, Gluc 122, POC Gluc 122-136 (05/17/20) Na 141, K 4.2, BUN 18, Cr 0.61, Glu 87, Ca 8.7 (05/12/20) Na 141, K 5.4, BUN 33, Cr 0.76, Glu 118, Ca 7.9 Meds: lactulose, pepcid, antibiotic, fentanyl, mannitol Ht: 66 inches Wt: 213 lbs (06/16) 215 lbs (06/13) 211 lbs (06/08) 212 lbs (06/06) 221 lbs (06/02) 246 lbs (05/28) 218 lbs (05/09) BMI: 35.2 using weight of 218 lbs IBW: 142 lbs Malnutrition Evaluation (06/16/20) The patient does not meet criteria for a specified degree of malnutrition at this time. Energy intake: pt is meeting kcal and protein needs with current tube feed rate Weight loss: does not meet criteria- wt fluctuations since admit noted with no significant change from admit wt, likely fluid related Fat loss: none- ample skinfold thickness of upper arms, observed outside of pt room Muscle loss: none- shoulder round, observed outside of pt room Supporting Evidence: Fluid accumulation: trace edema in lower extremities Functional Status: unable to evaluate- pt intubated and sedated Nutrition Prescription (Diet Order): Pivot 1.5 @ goal of 45 mL/hr- infusing at goal rate per chart (1620 kcal and 101 gm protein) Estimated Nutritional Needs: 3833-9955 calories/day (22-25 kcal/kg IBW) 97-129 g protein/day (1.5-2 g pro/kg IBW) Diet Adequacy: Meeting calorie needs, meeting protein needs Tolerance: tolerating TF Diet Education Needs Assessment: Diet education is not indicated, pt is intubated Nutrition Care Level: moderate Nutrition Diagnosis: Inadequate oral intake related to acute respiratory failure/mechanical ventilation as evidenced by requiring enteral nutrition. Goal: Patient will meet 75-100% of estimated needs by follow up Progress: goal met Interventions: - Composition, Rate, Route Monitoring/Evaluation: -Total energy intake, Total protein intake, Formula/Solution, Weight change Signed: Ruth Kern RD, LD
--- NOTE | 2020-06-16 16:52 | NUR ---
infectiouse disease progress note The patient remains intubated in prone position and sedated. He is in sinus rhythm on the monitor. No changes overnight. PHYSICAL EXAMINATION:patient sedated and intubated intensive care unit vitals stable afebrile VITAL SIGNS: stable GENERAL: Sedated and intubated. HEENT: Normocephalic and atraumatic. not pale or icteric CARDIOVASCULAR: Regular rate and rhythm. S1, S2 heard. LUNGS: Decreased breath sounds. ABDOMEN: Soft. bowel sounds present NEURO: Sedated. MUSCULOSKELETAL: Bilateral lower extremities with slight edema. SKIN: Dry with sacral pressure ulcer and facial ulcers. : Vizcarra. 1. Acute respiratory failure. 2. Viral pneumonia COVID-19 infection. 3. Anemia secondary to chronic blood loss. 4. Moderate protein-calorie malnutrition. 5. Diabetes. 6. Atrial fibrillation. 7. Anasarca. no new recommendation continue as ordered
--- NOTE | 2020-06-16 17:51 | NUR ---
Dr Neumann at bedside asked and informed him patient to be dialyzed tonight.
--- NOTE | 2020-06-16 18:31 | Progress Note ---
DATE: 06/16/2020 CONSULTANTS: 1. Dr. Quigley, reinforced steel placing supervisor. 2. Dr. Robertson, Infectious Disease. 3. Dr. Neumann, Cardiology. 4. Dr. Singh, Renal. SUBJECTIVE: Remains intubated and sedated in supine position. Status post ultrafiltration yesterday and for today. PHYSICAL EXAMINATION: VITAL SIGNS: Temperature 98.8, pulse is 86, respirations 32, blood pressure 121/36, pulse ox is 94% on vent. GENERAL: Sedated and intubated. CARDIOVASCULAR: Regular rate and rhythm. LUNGS: Decreased breath sounds. ABDOMEN: Soft. NEURO: Sedated. MUSCULOSKELETAL: Generalized edema. SKIN: Dry with multiple ulcers on sacral and face. LABORATORY DATA: WBC 16.35, hemoglobin 8.1, hematocrit 27.6, platelets 230. Sodium 146, potassium 4.1, BUN 38, creatinine 0.69, estimated GFR is greater than 60, glucose 139, total bilirubin 0.4, AST 35, ALT 20, alkaline phosphatase 74. ABG; pH is 7.39, pCO2 65, PO2 of 103, bicarb is 39, total CO2 is 41. Chest x-ray, no significant interval change. IMPRESSION: 1. Acute respiratory failure due to coronavirus disease-2019 pneumonia. Remains intubated and sedated off and on, vent management per reinforced steel placing supervisor. . 2. Acute and chronic anemia. Status post 1 unit of PRBC. Hemoglobin is stable at 8.1. We will continue to monitor. 3. . 4. Hypertension. Continue hydrochlorothiazide . 5. Atrial fibrillation. Currently in sinus rhythm. We will continue on amiodarone per Cardiology. 6. Generalized edema. Diuretics per Renal. . 7. Deep vein thrombosis prophylaxis. Continue Lovenox subcu. PLAN: Continue antibiotics per ID, . Dictated by MARAH Castro Alicja Rodriguez MD MY/MODL /[id number]
[2020-06-17] VITALS (31 sets, daily range): BP systolic 87–148; BP diastolic 36–64
--- NOTE | 2020-06-17 01:01 | Progress Note ---
DATE: 06/16/2020 Cardiology Progress Note SUBJECTIVE: Remains intubated and sedated. OBJECTIVE: VITAL SIGNS: Temperature 99.5, heart rate 87, respiratory rate 32, blood pressure 121/41, O2 saturation 93% on vent support. GENERAL: Intubated and sedated. NECK: Supple. CHEST: With rales. Decreased breath sounds. CARDIOVASCULAR: Regular rate and rhythm. Normal S1 and S2. ABDOMEN: Soft. Bowel sounds positive. EXTREMITIES: Edema to upper and lower extremities. CARDIOVASCULAR MEDICATIONS: Reviewed includes: 1. Acetazolamide. 2. Lovenox. 3. Amiodarone. STUDIES: Reviewed. White blood cells 16, hemoglobin 8, platelets of 230. Sodium 146, potassium 4.1, bicarbonate 39, trending down, BUN 38, creatinine 0.6. Fecal occult blood test advised and pending. ASSESSMENT AND PLAN: 1. Coronavirus disease-2019 infection, community-acquired pneumonia. 2. Acute respiratory failure. 3. Anasarca. 4. Contraction alkalosis. 5. Paroxysmal atrial fibrillation. 6. Acute diastolic heart failure. 7. Hypertension. RECOMMEND: 1. Check fecal occult blood test and monitor H and H. 2. Continue rest of cardiovascular medications. 3. Volume optimization per Nephrology. MD CHRISTINE Bal/MIKE /[id number]
[2020-06-17] MEDS: FENTANYL 2000MCG/NS 250 250 ML IV PRN ×4 (02:54→19:37)
[2020-06-17] MEDS: MIDAZOLAM HCL 5MG/ML 10ML VIAL 100 ML IV PRN ×3 (02:55→19:38)
[2020-06-17] MEDS: CEFEPIME 1GM/NS 0.9% 50 ML 50 ML IV SCH ×3 (06:11→21:54)
[2020-06-17 06:26] LABS: BASOPHILS # (AUTO) 0.1 (0.0-0.1); BASOPHILS % 0.4 % (0.0-1.0); EOSINOPHILS # (AUTO) 1.9 (0.0-0.4); HEMATOCRIT 27.1 % (38.2-49.6); HEMOGLOBIN 7.7 g/dL (14.0-18.0); LYMPHOCYTES # (AUTO) 2.3 (1.0-3.2); LYMPHOCYTES % 16.2 % (18.0-39.1); MEAN CORPUSCULAR HEMOGLOBIN 28.5 pg (28-32); MEAN CORPUSCULAR HGB CONC 28.4 g/dL (31-35); MEAN CORPUSCULAR VOLUME 100.4 fL (81-99); MONOCYTES # (AUTO) 1.1 (0.2-0.8); MONOCYTES % 7.6 % (4.4-11.3); NEUTROPHILS # (AUTO) 8.6 (2.1-6.9); NEUTROPHILS % 60.2 % (38.7-80.0); PLATELET COUNT 230 x10e3/uL (140-360)
[2020-06-17 06:44] LABS: BLOOD UREA NITROGEN 42 mg/dL (7-26); BUN/CREATININE RATIO 64 (6-25); CALCIUM 8.6 mg/dL (8.4-10.2); CARBON DIOXIDE 36 mmol/L (22-29); CHLORIDE 103 mmol/L (98-107); CREATININE, SERUM 0.66 mg/dL (0.72-1.25); EST GLOMERULAR FILTRATION RATE > 60 ML/MIN (60-); GLUCOSE 124 mg/dL (74-118); SODIUM 147 mmol/L (136-145)
[2020-06-17 08:03] LABS: ABG PH 7.26 (7.35-7.45)
[2020-06-17 08:04] LABS: ABG HCO3 38 mmol/L (22-26); ABG PCO2 86 mmHg (35-45); ABG PO2 106 mmHg (80-105); ABG TCO2 41
--- NOTE | 2020-06-17 08:45 | NUR ---
Dialysis started (Martell) see his notes
--- NOTE | 2020-06-17 08:54 | Diagnostic Imaging Report ---
EXAMINATION: CHEST SINGLE (PORTABLE) INDICATION: Respiratory failure. COMPARISON: Multiple prior chest radiograph including most recent on 06/16/2020. FINDINGS: TUBES and LINES: Endotracheal tube which terminates approximately 4.5 cm above the cadence, subdiaphragmatic enteric tube and right PICC which terminates in the distal SVC are unchanged. LUNGS: No interval changes in multifocal interstitial and airspace opacities. PLEURA: No pleural effusion or pneumothorax. HEART AND MEDIASTINUM: The cardiomediastinal silhouette is unchanged. BONES AND SOFT TISSUES: No acute osseous lesion. Soft tissues are unchanged. UPPER ABDOMEN: No free air under the diaphragm. IMPRESSION: 1. No interval changes in multifocal interstitial and airspace opacities. 2. Stable lines and tubes as above. Signed by: Jai Marcial MD on 06/17/2020 8:51 AM
[2020-06-17] MEDS: FAMOTIDINE 20 MG/2 ML VIAL IV SCH ×2 (09:08→18:11)
[2020-06-17] MEDS: ACETAZOLAMIDE SODIUM 500 MG/VIAL IV SCH ×2 (09:08→21:54)
[2020-06-17] MEDS: HYDROCHLOROTHIAZIDE 25 MG TAB PO SCH (09:09)
[2020-06-17] MEDS: AMIODARONE HCL 200 MG TAB PO SCH ×2 (09:09→18:12)
[2020-06-17] MEDS: BALSAM PERU/CASTOR OIL 60 GM OINT...G. TP SCH (09:09)
[2020-06-17] MEDS: POTASSIUM CHLORIDE 20MEQ/15ML UDC NG SCH ×2 (09:09→18:12)
[2020-06-17] MEDS: ENOXAPARIN INJ 80 MG/0.8 ML SYR SC SCH ×2 (09:09→21:57)
[2020-06-17] MEDS: LACTULOSE SYRUP 20 GM/30 ML UDC PO SCH (09:09)
--- NOTE | 2020-06-17 10:38 | NUR ---
Dr Quigley at bedside see vent changes and orders
--- NOTE | 2020-06-17 10:50 | NUR ---
Dr Fritz Archer at bedside update given states Ultra filtration tomorrow also dialysis nurse aware at bedside Suzi at
--- NOTE | 2020-06-17 11:08 | Progress Note ---
DATE: SUBJECTIVE: The patient is currently on a mechanical ventilation. He is on a pressure control at a rate of 36 with a PEEP of 8 and the pressure above PEEP of 28. His FiO2 is set at 75%. The patient is receiving ultrafiltration again today. He received ultrafiltration yesterday. PHYSICAL EXAMINATION: VITAL SIGNS: The blood pressure is 135/50 and his respiratory rate is 32. Saturation is 97%. The ventilator settings are as noted above. HEENT: Shows no facial swelling or erythema. LYMPHATIC: Shows no submandibular, cervical, or supraclavicular adenopathy. CARDIAC: Reveals regular rate and rhythm with normal S1 and S2. LUNGS: Auscultation of lungs reveals rhonchorous breath sounds bilaterally. There is no wheezing. ABDOMEN: Soft and nontender. There is no rebound or guarding. EXTREMITIES: Shows no leg edema or calf tenderness. There is no cyanosis or clubbing. SKIN: Shows no rashes. NEUROLOGICAL: Shows no focal abnormalities. LABORATORY DATA: White blood cell count is 14.3 and hemoglobin is 7.7. The platelet count is 230. The BUN to creatinine ratio is 42 to 0.66. Other electrolytes are within normal limits. RADIOGRAPHIC DATA: Shows bilateral airspace opacities. IMPRESSION: 1. Acute respiratory failure. 2. Viral pneumonia and COVID-19 infection. 3. Anemia secondary to chronic blood loss. 4. Moderate protein-calorie malnutrition. 5. Diabetes. 6. Atrial fibrillation. 7. Anasarca. PLAN: 1. Continue ultrafiltration daily. 2. Repeat ABG later today. 3. Continue current ventilator settings. 4. Continue enteral feedings. 5. Continue to monitor blood counts. Greater than 35 minutes in direct critical care time. Manuel Quigley MD [facility]/MODL /[id number]
--- NOTE | 2020-06-17 12:54 | Progress Note ---
DATE: 06/17/2020 Renal Progress Note SUBJECTIVE: Events over the past 24 hours have been noted. The patient was ultrafiltered yesterday. We took off about 2.5 L yesterday. PHYSICAL EXAMINATION: GENERAL: The patient is intubated on a ventilator. HEENT: No increased JVD. Ventilated, the patient still has anasarca. CARDIOVASCULAR: Regular rate and rhythm. LUNGS: Crackles and high-pitched squeals bilaterally. ABDOMEN: Decreased bowel sounds. EXTREMITIES: The patient has edema all over. Jaswinder catheter in the left femoral area. LABORATORY RESULTS: Sodium 147, potassium 4, chloride 103, bicarbonate 36, BUN and creatinine 42 and 0.6. IMPRESSION: 1. COVID pneumonia. 2. Respiratory failure. 3. Anasarca. 4. Total body water expansion. 5. Contraction alkalosis. PLAN: We removed 2.5 L yesterday. Today, he is being ultrafiltered. We are going to remove 3 to 3.5 L today. Also, we will ultrafilter him tomorrow as well. At this point, I am not going to remove large amounts of fluids in a single day, hope that I will dialyze him every day to get the fluid off. I will dialyze him tomorrow and even two days ago will be about 3 to 3.5 L same as tomorrow's. Ather MD LAWRENCE Singh/MIKE /[id number]
[2020-06-17 14:22] LABS: ABG PCO2 81 mmHg (35-45); ABG PH 7.26 (7.35-7.45)
[2020-06-17 14:23] LABS: ABG HCO3 36 mmol/L (22-26); ABG PO2 93 mmHg (80-105); ABG TCO2 38
--- NOTE | 2020-06-17 15:36 | NUR ---
Dr Robertson here update given
--- NOTE | 2020-06-17 16:21 | NUR ---
CHANGED ET TUBE HERNANDES- ET TUBE IS MARKED 24 AT THE LIP
--- NOTE | 2020-06-17 16:39 | NUR ---
infectious disease progress note patient seen and examined chart review and discussed with medical team patient remains in intensive care unit. The patient is currently on a mechanical ventilation. He is on a pressure control at a rate of 36 with a PEEP of 8 and the pressure above PEEP of 28. His FiO2 is set at 75%. The patient is receiving ultrafiltration again today. He received ultrafiltration yesterday. PHYSICAL EXAMINATION: VITAL SIGNS: The blood pressure is 135/50 and his respiratory rate is 32. Saturation is 97%. The ventilator settings are as noted above. HEENT: Shows no facial swelling or erythema. LYMPHATIC: Shows no submandibular, cervical, or supraclavicular adenopathy. CARDIAC: Reveals regular rate and rhythm with normal S1 and S2. LUNGS: Auscultation of lungs reveals rhonchorous breath sounds bilaterally. There is no wheezing. ABDOMEN: Soft and nontender. There is no rebound or guarding. EXTREMITIES: Shows no leg edema or calf tenderness. There is no cyanosis or clubbing. SKIN: Shows no rashes. NEUROLOGICAL: Shows no focal abnormalities. LABORATORY DATA: White blood cell count is 14.3 and hemoglobin is 7.7. The platelet count is 230. The BUN to creatinine ratio is 42 to 0.66. Other electrolytes are within normal limits. RADIOGRAPHIC DATA: Shows bilateral airspace opacities. IMPRESSION: 1. Acute respiratory failure. 2. Viral pneumonia and COVID-19 infection. 3. Anemia secondary to chronic blood loss. 4. Moderate protein-calorie malnutrition. 5. Diabetes. 6. Atrial fibrillation. continue as ordered to use of supportive care which exhibits usually can panel
--- NOTE | 2020-06-17 18:09 | Progress Note ---
DATE: 06/17/2020 CONSULTANTS: 1. Dr. Quigley, lathe winder. 2. Dr. Robertson, Infectious Disease. 3. Dr. Neumann, Cardiology. 4. Dr. Archer, Renal. SUBJECTIVE: The patient remains intubated and sedated, seen while receiving ultrafiltration. PHYSICAL EXAMINATION: VITAL SIGNS: Temperature 97.9, pulse is 88, respirations 32, blood pressure 109/47, and pulse ox 94% on the vent. GENERAL: Sedated and intubated. CARDIOVASCULAR: Regular rate and rhythm. LUNGS: Decreased breath sounds. ABDOMEN: Soft. NEUROLOGIC: Sedated. MUSCULOSKELETAL: Generalized edema, improving. SKIN: Dry with multiple pressure ulcers. LABORATORY DATA: WBCs 14.31, hemoglobin 7.7, hematocrit 27.1, and platelets 230. Sodium 147, potassium 4.0, BUN is 42, creatinine 0.66, estimated GFR is 60, and calcium is 8.6. ABG, pH is 7.26. PCO2 is 81, PO2 is 93, and bicarb 36. IMAGING DATA: Chest x-ray knee shows no interval changes and multifocal interstitial and airspace opacities. IMPRESSION: 1. Acute respiratory failure due to COVID-2019 pneumonia. Remains intubated and sedated. Vent management per lathe winder. 2. Ybusd-ks-rwclvle anemia, status post 1 unit of PRBCs. Hemoglobin is 7.7. 3. Leukocytosis, WBCs are 14.3. Chest x-ray shows multifocal pneumonia. We will continue on cefepime per ID. 4. Hypertension. Continue hydrochlorothiazide and hydralazine p.r.n. 5. Atrial fibrillation, currently sinus rhythm. We will continue on amiodarone p.o. per Cardiology. 6. Generalized edema, Renal on the case. Continue with ultrafiltration per Renal. 7. Deep vein thrombosis prophylaxis. Continue Lovenox subcu. PLAN: Continue antibiotics per Infectious Disease and ultrafiltration per Renal. Dictated by MARAH Castro Alicja Rodriguez MD MY/MODL /[id number]
[2020-06-17] MEDS: ROCURONIUM BROMIDE 1,250 MG in SODIUM CHLORIDE 0.9% 250ML 125 ML IV PRN (19:38)
--- NOTE | 2020-06-17 21:45 | Progress Note ---
DATE: 06/17/2020 Cardiology Progress Note SUBJECTIVE: Remains intubated and sedated. OBJECTIVE: VITAL SIGNS: Temperature 97.9, heart rate 91, blood pressure 121/48, respiratory rate 34, O2 saturation 94%. GENERAL: Intubated and sedated. NECK: Supple. CHEST: With rales. Decreased breath sounds. CARDIOVASCULAR: Regular rate and rhythm. Normal S1 and S2. ABDOMEN: Soft. EXTREMITIES: With edema. CARDIOVASCULAR MEDICATIONS: Reviewed. 1. Lovenox. 2. Amiodarone. 3. Potassium chloride. STUDIES: Reviewed. Sodium 147, potassium 4, chloride 103, bicarbonate 36, BUN 42, creatinine 0.6, glucose 124. White blood cells 14, hemoglobin 7.7, platelets 230. INR 1.4, AST 35, ALT 20, alkaline phosphatase 74. ASSESSMENT AND PLAN: A 65-year-old man presents with: 1. Pneumonia, COVID-19 infection. 2. Acute respiratory failure. 3. Acute diastolic heart failure. 4. Paroxysmal atrial fibrillation. 5. Anemia. RECOMMEND: 1. Continue current cardiovascular medications. 2. Await FOBT, so far no gross bleeding. 3. Continue volume optimization per Nephrology expertise. 4. Continue vent weaning as tolerated. MD CHRISTINE Bal/MIKE /[id number]
[2020-06-18] VITALS (28 sets, daily range): BP systolic 109–154; BP diastolic 38–50
[2020-06-18] MEDS: CEFEPIME 1GM/NS 0.9% 50 ML 50 ML IV SCH ×3 (06:21→20:36)
[2020-06-18] MEDS: FENTANYL 2000MCG/NS 250 250 ML IV PRN ×3 (06:27→21:11)
[2020-06-18] MEDS: MIDAZOLAM HCL 5MG/ML 10ML VIAL 100 ML IV PRN ×2 (06:28→18:39)
[2020-06-18 06:36] LABS: BASOPHILS # (AUTO) 0.1 (0.0-0.1); BASOPHILS % 0.3 % (0.0-1.0); EOSINOPHILS # (AUTO) 1.5 (0.0-0.4); EOSINOPHILS % 9.6 % (0.0-6.0); HEMATOCRIT 28.8 % (38.2-49.6); HEMOGLOBIN 8.2 g/dL (14.0-18.0); LYMPHOCYTES # (AUTO) 2.4 (1.0-3.2); LYMPHOCYTES % 14.9 % (18.0-39.1); MEAN CORPUSCULAR HEMOGLOBIN 28.5 pg (28-32); MEAN CORPUSCULAR HGB CONC 28.5 g/dL (31-35); MONOCYTES # (AUTO) 1.1 (0.2-0.8); NEUTROPHILS # (AUTO) 10.4 (2.1-6.9); NEUTROPHILS % 65.7 % (38.7-80.0); PLATELET COUNT 257 x10e3/uL (140-360); RED BLOOD COUNT 2.88 x10e6/uL (4.3-5.7); RED CELL DISTRIBUTION WIDTH 18.3 % (11.7-14.4)
[2020-06-18 07:03] LABS: BLOOD UREA NITROGEN 53 mg/dL (7-26); BUN/CREATININE RATIO 76 (6-25); CALCIUM 8.3 mg/dL (8.4-10.2); CARBON DIOXIDE 32 mmol/L (22-29); CHLORIDE 105 mmol/L (98-107); EST GLOMERULAR FILTRATION RATE > 60 ML/MIN (60-); GLUCOSE 157 mg/dL (74-118); SODIUM 147 mmol/L (136-145)
[2020-06-18 07:59] LABS: ABG PCO2 69 mmHg (35-45)
[2020-06-18 08:00] LABS: ABG HCO3 34 mmol/L (22-26); ABG PO2 80 mmHg (80-105); ABG TCO2 36
[2020-06-18 08:16] LABS: HYPOCHROMASIA MODERATE
[2020-06-18 08:17] LABS: RBC MORPHOLOGY COMMENT ABNORMAL
[2020-06-18] MEDS: ACETAZOLAMIDE SODIUM 500 MG/VIAL IV SCH ×2 (09:00→20:36)
[2020-06-18] MEDS: POTASSIUM CHLORIDE 20MEQ/15ML UDC NG SCH ×2 (09:21→18:35)
[2020-06-18] MEDS: LACTULOSE SYRUP 20 GM/30 ML UDC PO SCH (09:21)
[2020-06-18] MEDS: ENOXAPARIN INJ 80 MG/0.8 ML SYR SC SCH ×2 (09:21→20:36)
[2020-06-18] MEDS: HYDROCHLOROTHIAZIDE 25 MG TAB PO SCH (09:21)
[2020-06-18] MEDS: AMIODARONE HCL 200 MG TAB PO SCH ×2 (09:21→18:36)
[2020-06-18] MEDS: FAMOTIDINE 20 MG/2 ML VIAL IV SCH ×2 (09:21→18:35)
[2020-06-18] MEDS: BALSAM PERU/CASTOR OIL 60 GM OINT...G. TP SCH (09:21)
--- NOTE | 2020-06-18 09:30 | NUR ---
Dr Quigley at bedside see vent changes and stats to wean Jasper 1st leave Fent 225mcg/hr and Versed 4mg/hr
--- NOTE | 2020-06-18 10:17 | Progress Note ---
DATE: SUBJECTIVE: The patient had ultrafiltration and 3 L removed yesterday. He is scheduled for ultrafiltration again today. He is now in a supine position. He is on a pressure control ventilation at a rate of 36 with a PEEP of 8 and a pressure control above PEEP of 26. He remains on Versed at 4 mg as well as fentanyl at 225. He is also on rocuronium. PHYSICAL EXAMINATION: VITAL SIGNS: The patient is afebrile. The blood pressure is 131/43, saturation is 95%. The FiO2 is 70%. Respiratory rate is 26. The ventilator settings are as noted above. The patient has enteral feedings at 40 mL an hour. HEENT: There is an oral endotracheal tube. The patient has a PICC line as well as arterial line. CARDIAC: Regular rate and rhythm with normal S1, S2. LUNGS: Auscultation of lungs reveals rhonchorous breath sounds bilaterally. There is no wheezing. ABDOMEN: Soft, nontender. There is no rebound or guarding. EXTREMITIES: 2+ leg edema. There is a dialysis catheter in the left groin. LABORATORY DATA: BUN to creatinine ratio is 53 to 0.7, and sodium is 147. White blood cell count is 16 and the hemoglobin is 8.2. The platelet count is 257. Blood gases; 7.3, 69, 80, and 34. IMPRESSION: 1. Acute respiratory failure. 2. Viral pneumonia and coronavirus disease-19 infection. 3. Anemia secondary to chronic blood loss. 4. Moderate protein-calorie malnutrition. 5. Diabetes. 6. Atrial fibrillation. 7. Anasarca. PLAN: 1. Continue daily ultrafiltration. 2. Continue to monitor ABGs. 3. Continue current ventilator settings. 4. Continue Lovenox. 5. Continue enteral feedings. 6. Increase free water through feeding tube. Greater than 35 minutes in direct critical care time. Manuel Quigley MD [facility]/MODL /[id number]
--- NOTE | 2020-06-18 12:30 | NUR ---
Dr Archer in unit update given informed dialysis nurse been by states he had another patient to do, Martell removed 3L yesterday.
[2020-06-18 14:14] LABS: ABG HCO3 33 mmol/L (22-26); ABG PCO2 63 mmHg (35-45); ABG PH 7.33 (7.35-7.45); ABG PO2 63 mmHg (80-105); ABG TCO2 35
--- NOTE | 2020-06-18 15:28 | Progress Note ---
DATE: 06/18/2020 CONSULTANTS: 1. Dr. Quigley, road packer operator. 2. Dr. Robertson, Infectious Disease. 3. Dr. Neumann, Cardiology. 4. Dr. Singh, Renal. SUBJECTIVE: The patient is stable, in supine position, intubated and sedated. We will continue to receive ultrafiltration daily. PHYSICAL EXAMINATION: VITAL SIGNS: Temperature 98.4, pulse is 83, respirations 36, blood pressure 123/40, and pulse ox is 93% on the vent. GENERAL: Intubated and sedated. CARDIOVASCULAR: Regular rate and rhythm. LUNGS: Decreased breath sounds. ABDOMEN: Soft. NEUROLOGIC: Sedated. MUSCULOSKELETAL: Generalized edema, improving. SKIN: Dry with multiple pressure ulcers. LABORATORY DATA: WBC 15.88, hemoglobin 8.2, hematocrit 28.8, and platelets 257. Sodium 147, potassium 4.0, CO2 of 32, BUN is 53, and creatinine 0.70. Blood gases; pH 7.30, pCO2 of 69, PO2 of 80, and bicarb 34. IMPRESSION: 1. Acute respiratory failure due to coronavirus disease-19 pneumonia. Remains intubated and sedated, vent management per road packer operator. Antibiotics per Infectious Disease. 2. Chronic anemia. Hemoglobin is 8.2. Status post transfusion of 2 units of PRBCs. We will continue to monitor. 3. Leukocytosis. Continue cefepime per Infectious Disease. 4. Hypertension. Continue hydrochlorothiazide and hydralazine p.r.n. 5. Atrial fibrillation. Currently in sinus rhythm. We will continue on amiodarone p.o. per Cardiology. 6. Generalized edema. Continue ultrafiltration per Renal. 7. Deep vein thrombosis prophylaxis. Continue Lovenox subcu. PLAN: To continue with antibiotics and ultrafiltration daily per Renal. Dictated by MARAH Castro Alicja Rodriguez MD [facility]/MODL /[id number]
--- NOTE | 2020-06-18 21:24 | Progress Note ---
DATE: 06/18/2020 Cardiology Progress Note SUBJECTIVE: No complaints. Remains intubated. OBJECTIVE: VITAL SIGNS: Temperature 100.2, heart rate 89, blood pressure 140/47, respiratory rate 36, and O2 saturation 92% on telemetry in sinus rhythm. GENERAL: Intubated and sedated. NECK: Supple. CHEST: With rales and decreased breath sounds. CARDIOVASCULAR: Regular rate and rhythm. Normal S1 and S2. ABDOMEN: Soft. Bowel sounds positive. EXTREMITIES: With edema. CARDIOVASCULAR MEDICATIONS: Reviewed. Amiodarone 200 mg b.i.d., hydrochlorothiazide 25 mg daily, acetazolamide 250 mg every 12 hours, Lovenox 80 mg every 12 hours, and KCl repletion. LABORATORY DATA: Studies reviewed sodium 147, creatinine 0.7, potassium 4, bicarbonate 32, hemoglobin 8.2, white blood cells 50.8, and platelets 257. ASSESSMENT AND PLAN: A 65-year-old woman with COVID-19 infection, acute respiratory failure, community-acquired pneumonia, paroxysmal atrial fibrillation, hypertension, anemia acute, diastolic heart failure and volume overload. RECOMMENDATIONS: 1. Continue optimization of volume status per Nephrology expertise. 2. Monitor H and H. 3. Continue amiodarone. 4. Continue Lovenox at 80 mg every 12 hours. 5. Monitor blood pressure and consider resuming beta-sami over the next 48 hours depending on continued reads. Mario Harris MD [facility]/MODL /[id number]
--- NOTE | 2020-06-18 22:06 | NUR ---
infectious disease progress note Patient seen and examined chart reviewed he patient had ultrafiltration and 3 L removed yesterday. He is scheduled for ultrafiltration again today. He is now in a supine position. He is on a pressure control ventilation at a rate of 36 with a PEEP of 8 and a pressure control above PEEP of 26. He remains on Versed at 4 mg as well as fentanyl at 225. He is also on rocuronium. PHYSICAL EXAMINATION: VITAL SIGNS: The patient is afebrile. The blood pressure is 131/43, saturation is 95%. The FiO2 is 70%. Respiratory rate is 26. The ventilator settings are as noted above. The patient has enteral feedings at 40 mL an hour. HEENT: There is an oral endotracheal tube. The patient has a PICC line as well as arterial line. CARDIAC: Regular rate and rhythm with normal S1, S2. LUNGS: Auscultation of lungs reveals rhonchorous breath sounds bilaterally. There is no wheezing. ABDOMEN: Soft, nontender. There is no rebound or guarding. EXTREMITIES: 2+ leg edema. There is a dialysis catheter in the left groin. LABORATORY DATA: BUN to creatinine ratio is 53 to 0.7, and sodium is 147. White blood cell count is 16 and the hemoglobin is 8.2. The platelet count is 257. Blood gases; 7.3, 69, 80, and 34. IMPRESSION: 1. Acute respiratory failure. 2. Viral pneumonia and coronavirus disease-19 infection. 3. Anemia secondary to chronic blood loss. 4. Moderate protein-calorie malnutrition. 5. Diabetes. 6. Atrial fibrillation. 7. Anasarca. To continue as ordered recheck CBC a second panel continued supportive care to the aspiration precaution
[2020-06-19] VITALS (19 sets, daily range): BP systolic 109–149; BP diastolic 1–61
[2020-06-19] MEDS: MIDAZOLAM HCL 5MG/ML 10ML VIAL 100 ML IV PRN ×2 (01:34→20:00)
[2020-06-19] MEDS: FENTANYL 2000MCG/NS 250 250 ML IV PRN ×2 (05:06→22:20)
[2020-06-19] MEDS: CEFEPIME 1GM/NS 0.9% 50 ML 50 ML IV SCH ×3 (05:30→22:20)
[2020-06-19 06:48] LABS: BASOPHILS # (AUTO) 0.1 (0.0-0.1); BASOPHILS % 0.4 % (0.0-1.0); EOSINOPHILS # (AUTO) 0.9 (0.0-0.4); EOSINOPHILS % 5.6 % (0.0-6.0); HEMATOCRIT 29.9 % (38.2-49.6); HEMOGLOBIN 8.3 g/dL (14.0-18.0); LYMPHOCYTES # (AUTO) 2.3 (1.0-3.2); LYMPHOCYTES % 13.9 % (18.0-39.1); MEAN CORPUSCULAR HEMOGLOBIN 28.5 pg (28-32); MEAN CORPUSCULAR HGB CONC 27.8 g/dL (31-35); MEAN CORPUSCULAR VOLUME 102.7 fL (81-99); MONOCYTES # (AUTO) 1.3 (0.2-0.8); MONOCYTES % 7.8 % (4.4-11.3); NEUTROPHILS # (AUTO) 11.5 (2.1-6.9); NEUTROPHILS % 69.8 % (38.7-80.0); PLATELET COUNT 280 x10e3/uL (140-360); RED BLOOD COUNT 2.91 x10e6/uL (4.3-5.7); RED CELL DISTRIBUTION WIDTH 18.5 % (11.7-14.4)
[2020-06-19 07:11] LABS: ALANINE AMINOTRANSFERASE 23 IU/L (0-55); ALBUMIN 2.4 g/dL (3.5-5.0); ALBUMIN/GLOBULIN RATIO 0.4 (0.8-2.0); ALKALINE PHOSPHATASE 86 IU/L (40-150); ANION GAP 14.8 mmol/L (8-16); BLOOD UREA NITROGEN 74 mg/dL (7-26); BUN/CREATININE RATIO 91 (6-25); CALCIUM 8.3 mg/dL (8.4-10.2); CARBON DIOXIDE 29 mmol/L (22-29); CHLORIDE 109 mmol/L (98-107); CREATININE, SERUM 0.81 mg/dL (0.72-1.25); EST GLOMERULAR FILTRATION RATE > 60 ML/MIN (60-); GLUCOSE 175 mg/dL (74-118); POTASSIUM 4.8 mmol/L (3.5-5.1); SODIUM 148 mmol/L (136-145)
[2020-06-19 07:28] LABS: ABG HCO3 31 mmol/L (22-26); ABG PCO2 62 mmHg (35-45); ABG PO2 76 mmHg (80-105); ABG TCO2 33
[2020-06-19] MEDS: FAMOTIDINE 20 MG/2 ML VIAL IV SCH ×2 (08:22→18:35)
[2020-06-19] MEDS: HYDROCHLOROTHIAZIDE 25 MG TAB PO SCH (08:23)
[2020-06-19] MEDS: AMIODARONE HCL 200 MG TAB PO SCH ×2 (08:23→18:35)
[2020-06-19] MEDS: LACTULOSE SYRUP 20 GM/30 ML UDC PO SCH (08:23)
[2020-06-19] MEDS: BALSAM PERU/CASTOR OIL 60 GM OINT...G. TP SCH (08:23)
[2020-06-19] MEDS: POTASSIUM CHLORIDE 20MEQ/15ML UDC NG SCH ×2 (08:23→17:00)
[2020-06-19] MEDS: ENOXAPARIN INJ 80 MG/0.8 ML SYR SC SCH (08:23)
--- NOTE | 2020-06-19 08:28 | Diagnostic Imaging Report ---
TECHNIQUE: Frontal view of the chest. INDICATION: ^resp failure ^[id number] ^0603 COMPARISON: 06/17/2020 DISCUSSION: Limited evaluation due to portable technique. Lines and hardware: Endotracheal tube is again identified with tip projecting 5.6 cm above the cadence. Enteric tube is seen coursing inferiorly on the field of view. Right PICC is stable. Heart and mediastinum: Stable. Lungs and pleura: Mild interval improvement in diffuse bilateral interstitial airspace opacities. Negative for large effusion or pneumothorax. Soft tissues and bones: No acute abnormality. IMPRESSION: Interval mild improvement in diffuse bilateral interstitial airspace opacities. Stable support structures. Signed by: Ced Duncan MD on 06/19/2020 8:24 AM
--- NOTE | 2020-06-19 09:15 | Progress Note ---
DATE: SUBJECTIVE: The patient had no fever overnight. He received ultrafiltration yesterday and is scheduled to receive ultrafiltration again today. He remains in the supine position. He is on Versed and fentanyl as well as some rocuronium. PHYSICAL EXAMINATION: VITAL SIGNS: The patient is afebrile. The blood pressure is 138/46 and saturation is 93%. He is on a pressure control with a FiO2 of 65% and a PEEP of 10. His pressure above PEEP is 26 and his respiratory rate is 36. HEENT: Shows no facial swelling or erythema. LYMPHATIC: Shows no submandibular, cervical, or supraclavicular adenopathy. CARDIAC: Reveals regular rate and rhythm with normal S1 and S2. LUNGS: Auscultation of lungs reveals decreased breath sounds at the bases. There is no wheezing. ABDOMEN: Soft and nontender. There is no rebound or guarding. EXTREMITIES: Show no leg or calf tenderness. There is no cyanosis or clubbing. SKIN: Shows no rashes. NEUROLOGICAL: Shows no focal abnormalities. The patient is sedated. LABORATORY DATA: White blood cell count is 16.5 and the hemoglobin is 8.3. The platelet count is 280. The BUN to creatinine ratio of 74 to 0.81. The albumin is 2.4. Sodium is 148. IMPRESSION: 1. Acute respiratory failure. 2. Viral pneumonia and COVID-19 infection. 3. Moderate protein-calorie malnutrition. 4. Anasarca. 5. Diabetes. 6. Atrial fibrillation. 7. Anemia. PLAN: 1. Ultrafiltration again today. 2. Continue to wean off rocuronium and continue Versed and fentanyl. 3. Continue enteral feedings. 4. Continue Lovenox. 5. Continue current antibiotics. 6. Repeat ABG later today. Greater than 35 minutes in direct critical care time. Manuel Quigley MD [facility]/MODL /[id number]
--- NOTE | 2020-06-19 09:46 | Progress Note ---
DATE: 06/19/2020 Cardiology Progress Note SUBJECTIVE: Intubated and sedated. OBJECTIVE: VITAL SIGNS: Temperature 98.9, heart rate 87, respiratory rate 36, blood pressure 138/46, and O2 saturation 93%. GENERAL: Intubated and sedated. NECK: Supple. CHEST: With rales and decreased breath sounds. CARDIOVASCULAR: Regular rate and rhythm. Normal S1 and S2. ABDOMEN: Soft. Bowel sounds positive. EXTREMITIES: 1+ edema. CARDIOVASCULAR MEDICATIONS: Reviewed. KCl, Lovenox 80 q.12, amiodarone 200 b.i.d., potassium chloride repletion. STUDIES: Reviewed. Creatinine 0.8, potassium 4.8, and bicarbonate 29. White blood cells 16.5, hemoglobin 8.3, and platelets 280. INR 1.4. ASSESSMENT AND PLAN: A 65-year-old man presents with COVID-19 infection, community-acquired pneumonia, acute respiratory failure, paroxysmal atrial fibrillation, anemia, and acute diastolic heart failure. RECOMMEND: 1. Continue amiodarone and Lovenox. 2. Blood pressure less than 140s. Continue current medical regimen. 3. Vent weaning per Pulmonary expertise. 4. Volume optimization per Nephrology. MD CHRISTINE Bal/MIKE /[id number]
--- NOTE | 2020-06-19 12:26 | Progress Note ---
DATE: 06/19/2020 CONSULTANTS: 1. Dr. Quigley, director of student financial aid. 2. Dr. Robertson, Infectious Disease. 3. Dr. Neumann, Cardiology. 4. Dr. Singh, Renal. SUBJECTIVE: No events overnight, remains in ICU and supine position, intubated and sedated. Ultrafiltration per Renal. OBJECTIVE: VITAL SIGNS: Temperature 99.3, pulse is 92, respirations 36, blood pressure 142/46, and pulse ox is 90% on the vent. GENERAL: Sedated and intubated. CARDIOVASCULAR: Regular rate and rhythm. LUNGS: Decreased breath sounds, intubated. ABDOMEN: Soft. NEUROLOGIC: Sedated. MUSCULOSKELETAL: Improving edema. SKIN: Dry with multiple pressure ulcers. LABORATORY DATA: WBC 16.5, hemoglobin 8.3, hematocrit 29.9, and platelets 280. Sodium 148, potassium 4.8, creatinine 0.81, BUN 74, AST 33, and ALT 23. Blood gases, ABG; pH 7.3, pCO2 of 62, PO2 of 76, and bicarb 31. IMAGING: Chest x-ray, interval mild improvement in diffuse bilateral interstitial airspace opacities, stable support structures. IMPRESSION: 1. Acute respiratory failure due to coronavirus disease-19 pneumonia. Remains intubated and sedated, vent management per director of student financial aid, antibiotics per Infectious Disease. 2. Chronic anemia. Hemoglobin is 8.3. Continue to monitor closely. 3. Leukocytosis. Continue cefepime per Infectious Disease. Chest x-ray with mild improvement. 4. Hypertension. Continue hydrochlorothiazide and hydralazine p.r.n. 5. Atrial fibrillation. Currently in sinus rhythm. We will continue amiodarone p.o. per Cardiology. 6. Generalized edema. Continue ultrafiltration per Renal. 7. Deep vein thrombosis prophylaxis. Continue Lovenox subcu. 8. Obesity with BMI of 34. PLAN: To continue supportive therapy, antibiotics, and ultrafiltration per Renal. Dictated by MARAH Castro Alicja Rodriguez MD MY/MODL /[id number]
--- NOTE | 2020-06-19 12:27 | Progress Note ---
DATE: SUBJECTIVE: The patient remains in a supine position. He received ultrafiltration yesterday and will receive ultrafiltration again today. He remains on a PRVC mode of ventilation with pressure control at a rate of 36. His FiO2 is set at 65%. His PEEP is set at 8. His pressure control above PEEP is 26. PHYSICAL EXAMINATION: VITAL SIGNS: Blood pressure is 142/46, saturation is 91%. HEENT: Shows no facial swelling or erythema. There is an oral endotracheal tube. CARDIAC: Reveals regular rate and rhythm with normal S1 and S2. LUNGS: Auscultation of lungs reveals crackles at the bases. There is no wheezing. ABDOMEN: Soft and nontender. There is no rebound or guarding. EXTREMITIES: Shows no leg edema or calf tenderness. There is no cyanosis or clubbing. SKIN: Shows no rashes. NEUROLOGICAL: Shows no focal abnormalities. The patient is sedated and still on rocuronium. RADIOGRAPHIC DATA: Chest x-ray shows mild improvement in bilateral infiltrates. IMPRESSION: 1. Acute respiratory failure. 2. Viral pneumonia and COVID-19 infection. 3. Anasarca. 4. Diabetes. 5. Atrial fibrillation. 6. Anemia. PLAN: 1. Repeat ultrafiltration today. 2. Place the patient in prone position after ultrafiltration. 3. Continue Versed and fentanyl. Wean off rocuronium. 4. Continue Lovenox. 5. Continue enteral feedings. 6. Complete antibiotics. Greater than 35 minutes in direct critical care time. Manuel Quigley MD [facility]/MODL /[id number]
[2020-06-19] MEDS: ACETAZOLAMIDE SODIUM 500 MG/VIAL IV SCH ×2 (12:52→22:20)
[2020-06-19 15:45] LABS: BASOPHILS # (AUTO) 0.1 (0.0-0.1); BASOPHILS % 0.3 % (0.0-1.0); EOSINOPHILS # (AUTO) 0.9 (0.0-0.4); EOSINOPHILS % 5.5 % (0.0-6.0); HEMATOCRIT 29.3 % (38.2-49.6); LYMPHOCYTES # (AUTO) 2.3 (1.0-3.2); LYMPHOCYTES % 14.1 % (18.0-39.1); MEAN CORPUSCULAR HEMOGLOBIN 28.2 pg (28-32); MEAN CORPUSCULAR HGB CONC 27.3 g/dL (31-35); MEAN CORPUSCULAR VOLUME 103.2 fL (81-99); MONOCYTES # (AUTO) 1.3 (0.2-0.8); MONOCYTES % 8.1 % (4.4-11.3); NEUTROPHILS # (AUTO) 11.2 (2.1-6.9); NEUTROPHILS % 69.9 % (38.7-80.0); PLATELET COUNT 293 x10e3/uL (140-360); RED BLOOD COUNT 2.84 x10e6/uL (4.3-5.7); RED CELL DISTRIBUTION WIDTH 18.8 % (11.7-14.4)
[2020-06-19 16:12] LABS: ABG HCO3 31 mmol/L (22-26); ABG PCO2 69 mmHg (35-45); ABG PH 7.26 (7.35-7.45); ABG PO2 69 mmHg (80-105); ABG TCO2 33
--- NOTE | 2020-06-19 16:18 | Progress Note ---
DATE: SUBJECTIVE: Mr. Bob remains in intensive care unit, the patient day #47. His ultrafiltration on the ventilator. OBJECTIVE: HEENT: Normocephalic. NECK: Supple. CHEST: Crackles. HEART: S1 and S2. ABDOMEN: Soft. Bowel sounds present. EXTREMITIES: Edema. LABORATORY DATA: His blood cultures, coagulase-negative Staph. His white count 16.5, hemoglobin 8.3. Sodium 140, potassium 4.8, and creatinine 0.81. He is currently on Lovenox, cefepime, we will stop that for now. Recheck CBC. Recheck Chem panel. We will follow. MD JOSE Garay/MIKE /[id number]
--- NOTE | 2020-06-19 17:13 | Progress Note ---
DATE: 06/19/2020 Renal Progress Note SUBJECTIVE: Events over the past 24 hours have been noted. The patient remains on the ventilator. He has been undergoing ultrafiltration sessions almost daily. PHYSICAL EXAMINATION: VITAL SIGNS: Blood pressure 149/49, pulse 92, and afebrile. GENERAL: The patient is on a ventilator. He does have some generalized edema still. HEENT: No increased JVD. CARDIOVASCULAR: Regular rate and rhythm. LUNGS: Decreased breath sounds and crackles bilaterally. ABDOMEN: Decreased bowel sounds. EXTREMITIES: No edema. LABORATORY RESULTS: Sodium 140, potassium 4.8, chloride 109, bicarb 29, BUN and creatinine 74 and 0.8 respectively. IMPRESSION: 1. COVID pneumonia. 2. COVID infection. 3. Anasarca. 4. Fluid overload. PLAN: The patient will ultrafilter today also. The ultrafiltration is about to start now. However, his O2 saturations 88%. We will go ahead and try gently to ultrafilter for 3 hours. We will try to take out 3 to 3.5 L. I do not want to be any more vigorous than this because I do not want to cause any hemodynamic instability. I will stop the potassium chloride at this time. Ather MD LAWRENCE Singh/SHIRLEYL /[id number]
[2020-06-19 18:27] LABS: INR 1.08; PROTHROMBIN TIME 14.6 seconds (11.9-14.5)
[2020-06-19 18:28] LABS: PARTIAL THROMBOPLASTIN TIME 44.7 seconds (23.8-35.5)
[2020-06-19 20:38] LABS: ABG HCO3 31 mmol/L (22-26); ABG PCO2 58 mmHg (35-45); ABG PH 7.33 (7.35-7.45); ABG PO2 55 mmHg (80-105); ABG TCO2 32
[2020-06-20] VITALS (26 sets, daily range): BP systolic 113–153; BP diastolic 34–56
[2020-06-20] MEDS: ACETAMINOPHEN 325 MG/10 ML UDC NG PRN (01:52)
[2020-06-20] MEDS: MIDAZOLAM HCL 5MG/ML 10ML VIAL 100 ML IV PRN ×2 (03:50→20:07)
[2020-06-20] MEDS: CEFEPIME 1GM/NS 0.9% 50 ML 50 ML IV SCH ×3 (05:30→21:41)
[2020-06-20 05:59] LABS: BASOPHILS % 0.3 % (0.0-1.0); EOSINOPHILS # (AUTO) 0.9 (0.0-0.4); EOSINOPHILS % 5.9 % (0.0-6.0); HEMATOCRIT 24.7 % (38.2-49.6); LYMPHOCYTES # (AUTO) 2.4 (1.0-3.2); LYMPHOCYTES % 15.6 % (18.0-39.1); MEAN CORPUSCULAR HEMOGLOBIN 28.3 pg (28-32); MEAN CORPUSCULAR HGB CONC 27.9 g/dL (31-35); MEAN CORPUSCULAR VOLUME 101.2 fL (81-99); MONOCYTES # (AUTO) 1.2 (0.2-0.8); NEUTROPHILS # (AUTO) 10.5 (2.1-6.9); NEUTROPHILS % 68.4 % (38.7-80.0); PLATELET COUNT 280 x10e3/uL (140-360); RED BLOOD COUNT 2.44 x10e6/uL (4.3-5.7)
[2020-06-20 06:42] LABS: HEMOGLOBIN 6.9 g/dL (14.0-18.0)
[2020-06-20 06:53] LABS: ALANINE AMINOTRANSFERASE 21 IU/L (0-55); ALKALINE PHOSPHATASE 71 IU/L (40-150); ANION GAP 14.1 mmol/L (8-16); BLOOD UREA NITROGEN 74 mg/dL (7-26); BUN/CREATININE RATIO 100 (6-25); CALCIUM 8.2 mg/dL (8.4-10.2); CARBON DIOXIDE 29 mmol/L (22-29); CHLORIDE 113 mmol/L (98-107); CREATININE, SERUM 0.74 mg/dL (0.72-1.25); EST GLOMERULAR FILTRATION RATE > 60 ML/MIN (60-); GLUCOSE 154 mg/dL (74-118); POTASSIUM 4.1 mmol/L (3.5-5.1); SODIUM 152 mmol/L (136-145)
--- NOTE | 2020-06-20 07:06 | NUR ---
Critical hemoglobin lab value read back to Dr. Quigley. Order for 1 PRBC received, updated oncoming RN of order to be carried out. Report given to Samantha ROCK.
[2020-06-20] MEDS ORDERED: SODIUM CHLORIDE 0.9% 250ML 250 ML IV NR (07:15)
[2020-06-20 07:41] LABS: ALBUMIN 3.4 g/dL (3.5-5.0); ALBUMIN/GLOBULIN RATIO 0.9 (0.8-2.0)
[2020-06-20] MEDS ORDERED: VANCOMYCIN 1GM/NS 250 ML 250 ML IV ONE (08:30)
--- NOTE | 2020-06-20 08:46 | Progress Note ---
DATE: SUBJECTIVE: The patient is currently in the supine position. He is on a pressure control. His PEEP is set at 6 and his pressure above PEEP is 26. His FiO2 is now at 75%. His rate is set at 36. The patient did have some fevers to 100.9 last night. He remains on Versed and fentanyl as well as rocuronium at 0.008. PHYSICAL EXAMINATION: VITAL SIGNS: Blood pressure is 134/56, saturation is 94% and the pulse is 87. HEENT: No facial swelling or erythema. There is an oral endotracheal tube. The patient has a PICC line on the right side. It is bandaged because of some bleeding yesterday. There is some swelling in the right arm as well as the left arm. CARDIAC: Regular rate and rhythm with normal S1 and S2. LUNGS: Auscultation of the lungs reveals rhonchorous breath sounds bilaterally. There is no wheezing. ABDOMEN: Soft, nontender. There is no rebound or guarding. EXTREMITIES: Examination of the extremities shows edema in the upper extremities as noted above. NEUROLOGICAL: The patient to be sedated and paralyzed. LABORATORY DATA: Hemoglobin is 6.9 and white blood cell count is 16.3. The platelet count is 280,000. BUN to creatinine ratio is 74 to 0.74. Sodium is 152. Other electrolytes are within normal limits and the albumin is 3.4. RADIOGRAPHIC DATA: Chest x-ray shows mild improvement in bilateral infiltrates. IMPRESSION: 1. Acute respiratory failure. 2. Viral pneumonia and COVID-19 infection. 3. Anemia secondary to acute and chronic blood loss. 4. Diabetes. 5. Atrial fibrillation. 6. Fevers. PLAN: 1. Continue cefepime for now. Add one dose of vancomycin and obtain cultures. 2. The patient to receive packed red blood cells today. 3. Lovenox has been on hold because of bleeding from the PICC site. We will restart that later today. 4. Await venous duplex of the upper extremities to rule out DVT. 5. Continue current ventilator settings and repeat ABG. We will adjust ventilator settings as tolerated. 6. Increase free water through feeding tube because of hypernatremia. 7. Place the patient in the prone position. 8. Case discussed with branch sales and service representative Respiratory, dayshift Respiratory, branch sales and service representative nursing, dayshift nursing, Nephrology, Internal Medicine, and Infectious Disease. Greater than 35 minutes in direct critical care time. MD FRANCES Mae/MIKE /[id number]
[2020-06-20] MEDS: POTASSIUM CHLORIDE 20MEQ/15ML UDC NG SCH (09:00)
[2020-06-20] MEDS: LACTULOSE SYRUP 20 GM/30 ML UDC PO SCH (09:24)
[2020-06-20] MEDS: AMIODARONE HCL 200 MG TAB PO SCH ×2 (09:24→17:33)
[2020-06-20] MEDS: HYDROCHLOROTHIAZIDE 25 MG TAB PO SCH (09:24)
[2020-06-20] MEDS: ACETAZOLAMIDE SODIUM 500 MG/VIAL IV SCH ×2 (09:24→21:00)
[2020-06-20] MEDS: BALSAM PERU/CASTOR OIL 60 GM OINT...G. TP SCH (09:24)
[2020-06-20] MEDS: FAMOTIDINE 20 MG/2 ML VIAL IV SCH ×2 (09:24→17:32)
[2020-06-20 10:12] LABS: ABG HCO3 31 mmol/L (22-26); ABG PCO2 56 mmHg (35-45); ABG PH 7.35 (7.35-7.45); ABG PO2 62 mmHg (80-105); ABG TCO2 32
[2020-06-20] MEDS ORDERED: SODIUM CHLORIDE 0.9% 250ML 250 ML ONE (11:16)
[2020-06-20 13:35] LABS: CLARITY,URINE SL CLOUDY (CLEAR); COLOR,URINE YELLOW (YELLOW)
[2020-06-20 13:36] LABS: BILIRUBIN,URINE NEGATIVE (NEGATIVE); KETONES,URINE NEGATIVE (NEGATIVE); LEUKOCYTE ESTERASE ,URINE NEGATIVE (NEGATIVE); NITRITE,URINE NEGATIVE (NEGATIVE); PROTEIN,URINE DIPSTICK 2+ (NEGATIVE)
[2020-06-20 13:37] LABS: BACTERIA,URINE RARE /HPF; EPITHELIAL CELLS,URINE FEW /LPF
--- NOTE | 2020-06-20 17:39 | Progress Note ---
DATE: 06/20/2020 Renal Progress Note SUBJECTIVE: Events over the 24 hours have been noted. The patient remains on the ventilator. PHYSICAL EXAMINATION: VITAL SIGNS: Blood pressure 142/56 and pulse 70. GENERAL: The patient remained on the ventilator. HEENT: No increased JVD. CARDIOVASCULAR: Regular rate and rhythm. LUNGS: Decreased breath sounds and crackles. ABDOMEN: Decreased bowel sounds. EXTREMITIES: The patient has some edema of the arms. The edema is going down in the legs. LABORATORY RESULTS: Sodium 152, potassium 4.1, chloride 113, bicarbonate 29, BUN and creatinine 74 and 0.74 respectively. Intake and output 1240 in and 1000 mL out. IMPRESSION/PLAN: 1. COVID pneumonia. 2. Anasarca. 3. Fluid overload. 4. Hypernatremia. 5. Anemia. PLAN: The patient's sodium is going up. He is becoming hypernatremic. Also, his hemoglobin is low. I think today, we will not ultrafilter him. We will give him a break today. He is hypernatremic, but the free water has been increased from 100 to 150 mL q.4 hours. He is anemic. He was having some bleeding from the PICC line yesterday. Blood transfusion has been done. We will evaluate him tomorrow to see if he needs ultrafiltration. Ather MD LAWRENCE Singh/MIKE /[id number]
--- NOTE | 2020-06-20 19:59 | Progress Note ---
DATE: 06/20/2020 CONSULTANTS: 1. Dr. Quigley, Interventional Physician. 2. Dr. Robertson, Infectious Disease. 3. Dr. Neumann, Cardiology. 4. Dr. Singh, Renal. SUBJECTIVE: No events overnight, intubated and sedated in supine position. PHYSICAL EXAMINATION: VITAL SIGNS: Temperature 97.2, pulse is 74, respirations 36, blood pressure 120/49, pulse ox 95% on the vent. GENERAL: Sedated and intubated. CARDIOVASCULAR: Tachycardia. LUNGS: Decreased breath sounds, intubated. ABDOMEN: Soft. NEUROLOGIC: Sedated. MUSCULOSKELETAL: Slight edema. SKIN: Dry. EXTREMITIES: Right upper extremity with increased swelling and bleeding noted from the PICC line site. LABORATORY DATA: WBC 15.33, RBC 3.4, hemoglobin 6.9, hematocrit 24.7, and platelets 280. Sodium 152, potassium 4.1, CO2 of 29, creatinine 0.74, estimated GFR 60, glucose 154, calcium 8.2, AST 21, and ALT 71. UA; slightly cloudy with trace blood, negative leukocyte esterase, 6-10 RBCs and WBC. ABG; pH 7.335, pCO2 of 56, PO2 of 52, and bicarb 31. IMAGING DATA: Pending ultrasound of the right upper extremity. IMPRESSION: 1. Acute respiratory failure due to coronavirus disease-19 pneumonia. Remains intubated and sedated, vent management per gravedigger and antibiotics per Infectious Disease. 2. Acute on chronic anemia. Hemoglobin was 6.9 this morning. We will transfuse one unit of PRBC and monitor closely. 3. Leukocytosis. Continue cefepime per Infectious Disease. 4. Hypertension. Continue hydrochlorothiazide and hydralazine p.r.n. 5. Right upper extremity edema plus swelling. Ultrasound done and pending results. 6. Atrial fibrillation. We will continue on amiodarone p.o. per Cardiology. 7. Generalized edema. Ultrafiltration per Renal. 8. Deep vein thrombosis prophylaxis. Continue Lovenox. PLAN: To continue supportive therapy, antibiotics, pending ultrasound of bilateral upper extremities. Dictated by MARAH Castro Alicja Rodriguez MD MY/MODL /[id number]
--- NOTE | 2020-06-20 20:29 | Progress Note ---
DATE: 06/20/2020 Cardiology Progress Note. SUBJECTIVE: Intubated and sedated. OBJECTIVE: VITAL SIGNS: Temperature 97.2, heart rate 74, blood pressure 124/42, respiratory rate 36, O2 saturation 95%. GENERAL: Intubated and sedated. NECK: Supple. CHEST: With mild decreased breath sounds. CARDIOVASCULAR: Regular rate and rhythm. Normal S1, S2. Systolic ejection murmur. ABDOMEN: Soft. Bowel sounds positive. EXTREMITIES: Upper extremity edema. Lower extremities trace edema, overall improved volume status. CARDIOVASCULAR MEDICATIONS: Reviewed. KCl, acetazolamide, amiodarone, hydrochlorothiazide. STUDIES: Reviewed: Sodium 152, potassium 4.1, chloride 113, bicarbonate 29, BUN 74, creatinine 0.7, glucose 154. White blood cells 15, hemoglobin 6.9, platelets 280. PT 14, PTT 44. INR 1. AST 29, ALT 21, alkaline phosphatase 71. ASSESSMENT AND PLAN: A 65-year-old man presents with acute respiratory failure, COVID-19 infection, community-acquired pneumonia, hypertension, paroxysmal atrial fibrillation, and acute diastolic heart failure. RECOMMENDATIONS: Continue current cardiovascular medications. Volume optimization continues to improve, guided by Nephrology expertise. Continue anticoagulation for atrial fibrillation and amiodarone. Remains sinus rhythm on telemetry. Mairo Harris MD [facility]/MODL /[id number]
[2020-06-20] MEDS: ENOXAPARIN INJ 80 MG/0.8 ML SYR SC SCH (21:41)
[2020-06-21] VITALS (21 sets, daily range): BP systolic 114–170; BP diastolic 44–63
[2020-06-21] MEDS: FENTANYL 2000MCG/NS 250 250 ML IV PRN ×3 (01:50→18:47)
[2020-06-21] MEDS: MIDAZOLAM HCL 5MG/ML 10ML VIAL 100 ML IV PRN ×3 (03:47→18:46)
[2020-06-21 05:13] LABS: BASOPHILS # (AUTO) 0.1 (0.0-0.1); BASOPHILS % 0.4 % (0.0-1.0); EOSINOPHILS # (AUTO) 1.4 (0.0-0.4); HEMATOCRIT 27.2 % (38.2-49.6); HEMOGLOBIN 7.8 g/dL (14.0-18.0); LYMPHOCYTES # (AUTO) 2.3 (1.0-3.2); MEAN CORPUSCULAR HEMOGLOBIN 28.5 pg (28-32); MEAN CORPUSCULAR HGB CONC 28.7 g/dL (31-35); MEAN CORPUSCULAR VOLUME 99.3 fL (81-99); MONOCYTES % 6.5 % (4.4-11.3); NEUTROPHILS # (AUTO) 10.5 (2.1-6.9); NEUTROPHILS % 67.4 % (38.7-80.0); PLATELET COUNT 270 x10e3/uL (140-360); RED BLOOD COUNT 2.74 x10e6/uL (4.3-5.7); RED CELL DISTRIBUTION WIDTH 20.4 % (11.7-14.4)
[2020-06-21] MEDS: CEFEPIME 1GM/NS 0.9% 50 ML 50 ML IV SCH ×2 (05:51→13:27)
[2020-06-21 06:04] LABS: ALANINE AMINOTRANSFERASE 19 IU/L (0-55); ALBUMIN 3.3 g/dL (3.5-5.0); ALBUMIN/GLOBULIN RATIO 0.8 (0.8-2.0); ALKALINE PHOSPHATASE 71 IU/L (40-150); ANION GAP 15.5 mmol/L (8-16); BLOOD UREA NITROGEN 65 mg/dL (7-26); BUN/CREATININE RATIO 98 (6-25); CALCIUM 8.4 mg/dL (8.4-10.2); CARBON DIOXIDE 27 mmol/L (22-29); CHLORIDE 115 mmol/L (98-107); CREATININE, SERUM 0.66 mg/dL (0.72-1.25); EST GLOMERULAR FILTRATION RATE > 60 ML/MIN (60-); GLUCOSE 144 mg/dL (74-118); POTASSIUM 3.5 mmol/L (3.5-5.1); SODIUM 154 mmol/L (136-145)
[2020-06-21 07:45] LABS: ABG HCO3 30 mmol/L (22-26); ABG PCO2 65 mmHg (35-45); ABG PH 7.27 (7.35-7.45); ABG PO2 79 mmHg (80-105); ABG TCO2 32
[2020-06-21] MEDS: HYDROCHLOROTHIAZIDE 25 MG TAB PO SCH (08:50)
[2020-06-21] MEDS: AMIODARONE HCL 200 MG TAB PO SCH ×2 (08:50→16:26)
[2020-06-21] MEDS: LACTULOSE SYRUP 20 GM/30 ML UDC PO SCH (08:50)
[2020-06-21] MEDS: FAMOTIDINE 20 MG/2 ML VIAL IV SCH ×2 (08:50→16:26)
--- NOTE | 2020-06-21 08:55 | Progress Note ---
DATE: SUBJECTIVE: The patient did not have ultrafiltration yesterday. He remains in the supine position. He is on pressure control mode of ventilation with a PEEP of 8 and pressure above PEEP of 26. His rate is set at 36 and his FiO2 is set at 75%. He remains on Versed and fentanyl as well as rocuronium. PHYSICAL EXAMINATION: VITAL SIGNS: The patient is afebrile. The blood pressure is 114/42 and saturation is 96%. He is on the above-mentioned ventilator settings. HEENT: Shows no facial swelling or erythema. There is an oral endotracheal tube. LYMPHATIC: Shows no submandibular, cervical, or supraclavicular adenopathy. CARDIAC: Reveals a regular rate and rhythm with normal S1 and S2. LUNGS: Auscultation of lungs reveals crackles at the bases. There is no wheezing. ABDOMEN: Soft and nontender. There is no rebound or guarding. EXTREMITIES: Shows no leg edema or calf tenderness. There is no cyanosis or clubbing. SKIN: Shows no rashes. NEUROLOGICAL: Shows no focal abnormalities. The patient is sedated. LABORATORY DATA: The BUN to creatinine ratio is 65 to 0.66 and the sodium is 154. The albumin is 3.3. The hemoglobin is 7.8 and the white blood cell count is 15.5. The platelet count is 270. RADIOGRAPHIC DATA: Chest x-ray shows continued bilateral airspace opacities. IMPRESSION: 1. Acute respiratory failure. 2. Viral pneumonia and COVID-19 infection. 3. Anemia secondary to chronic blood loss. 4. Diabetes. 5. Atrial fibrillation. 6. Anasarca. PLAN: 1. The patient is scheduled for ultrafiltration again today. 2. Place the patient in prone position after ultrafiltration. 3. Continue enteral feedings and free water. 4. Continue Lovenox. 5. Complete antibiotics. 6. Await culture results. 7. Continue Versed, fentanyl, and rocuronium. Greater than 35 minutes in direct critical care time. Manuel Quigley MD [facility]/MODL /[id number]
[2020-06-21] MEDS: ENOXAPARIN INJ 80 MG/0.8 ML SYR SC SCH ×2 (09:00→17:50)
[2020-06-21] MEDS: BALSAM PERU/CASTOR OIL 60 GM OINT...G. TP SCH (13:27)
--- NOTE | 2020-06-21 14:39 | NUR ---
He remains in the supine position. He is on pressure control mode of ventilation with a PEEP of 8 and pressure above PEEP of 26. His rate is set at 36 and his FiO2 is set at 75%. He remains on Versed and fentanyl as well as rocuronium. PHYSICAL EXAMINATION: VITAL SIGNS: The patient is afebrile. The blood pressure is 114/42 and saturation is 96%. He is on the above-mentioned ventilator settings. HEENT: Shows no facial swelling or erythema. There is an oral endotracheal tube. LYMPHATIC: Shows no submandibular, cervical, or supraclavicular adenopathy. CARDIAC: Reveals a regular rate and rhythm with normal S1 and S2. LUNGS: Auscultation of lungs reveals crackles at the bases. There is no wheezing. ABDOMEN: Soft and nontender. There is no rebound or guarding. EXTREMITIES: Shows no leg edema or calf tenderness. There is no cyanosis or clubbing. SKIN: Shows no rashes. NEUROLOGICAL: Shows no focal abnormalities. The patient is sedated. LABORATORY DATA: The BUN to creatinine ratio is 65 to 0.66 and the sodium is 154. The albumin is 3.3. The hemoglobin is 7.8 and the white blood cell count is 15.5. The platelet count is 270. RADIOGRAPHIC DATA: Chest x-ray shows continued bilateral airspace opacities.
--- NOTE | 2020-06-21 15:19 | Progress Note ---
DATE: SUBJECTIVE: Mr. Bob remains in intensive care unit, day #48. He is on pressors. His PEEP was 6, FiO2 is 35%, had low fever. OBJECTIVE: HEENT: Oral intubation. CHEST: Few crackles. HEART: S1 and S2. ABDOMEN: Soft. Bowel sounds present. EXTREMITIES: Show edema. SKIN: There is no rash. IMPRESSION: Respiratory failure, COVID-19, diabetes mellitus, atrial fibrillation, bacteremia, coag-negative Staph, probably contamination. White count is 15.6, hemoglobin is 6.9. Sodium 152, potassium 4.2, creatinine 0.74. He is currently on cefepime for possibility of aspiration pneumonia, to finish 7 days. We will follow. MD JOSE Garay/MODL /[id number]
--- NOTE | 2020-06-21 15:58 | Progress Note ---
DATE: 06/21/2020 Renal Progress Note SUBJECTIVE: Events over the past 24 hours have been noted. The patient remains intubated. He is on a ventilator. PHYSICAL EXAMINATION: VITAL SIGNS: Blood pressure 122/54, pulse is 70, respiration 36. Intake 4970 in, 2725 out. Balance is 2245. GENERAL: The patient is intubated on a ventilator. CARDIOVASCULAR: Regular rate and rhythm. LUNGS: Decreased breath sounds. ABDOMEN: Decreased bowel sounds. EXTREMITIES: The patient is wearing pneumatic compression stockings on the legs. His arms does have some edema. LABORATORY RESULTS: Sodium 154, potassium 3.5, chloride 115, bicarbonate 27, BUN and creatinine 65 and 0.6 respectively. IMPRESSION: 1. COVID pneumonia. 2. Anasarca. 3. Fluid overload. 4. Hypernatremia. 5. Contraction metabolic alkalosis. 6. Anemia. PLAN: The sodium was a little bit higher. He was in a positive fluid balance. However, I elected not to do ultrafiltration today because I did not want his sodium to go up anymore. His chest x-ray shows that actually the infiltrates bilaterally have improved somewhat. His urine output is okay but if he is in more than a L fluid balance positive tomorrow, then we will have to ultrafilter him. We will continue the free water through the GI tract, but I have held the ultrafiltration today, but likely he will get it tomorrow. His swelling since he has been admitted has gone down, however, significantly. Ather MD LAWRENCE Singh/MIKE /[id number]
--- NOTE | 2020-06-21 16:43 | Progress Note ---
DATE: SUBJECTIVE: Angus Bob remains in intensive care unit. The patient remains in supine position. His vent setting noted. OBJECTIVE: VITAL SIGNS: The patient is afebrile. HEENT: Normocephalic. NECK: Supple. CHEST: Crackles bilateral. HEART: S1, S2. ABDOMEN: Soft. IMPRESSION: 1. Respiratory failure. 2. COVID-19. 3. Diabetes mellitus. 4. Atrial fibrillation. Continue with plan as ordered. He is currently on cefepime 1 g q.8. On day #7, we can discontinue and then reassess. MD JOSE Garay/MIKE /[id number]
--- NOTE | 2020-06-21 16:59 | NUR ---
Nutrition Intervention Note RD Recommendation(s) for Physician: -Continue Pivot 1.5 at goal rate of 45 ml/hr (to provide 1620 kcal and 101 gm protein) -Pt may be fed when in prone position at goal rate in reverse Trendelenburg with HOB at 10-25 degrees. -Fluid/water management per MD Plan of Care: RD following, monitoring for tolerance and adequacy, tube feed recommendation Nutrition reason for involvement: follow up RD Assessment 06/21: Follow up. Chart reviewed. Pt had been receiving tube feeding at goal rate of 45 mL/hr per RN which meets nutritional needs. Will continue to monitor. 06/16: Follow up. Chart reviewed. Pt remains intubated and is in the supine position. Pts tube feeding is at goal rate of 45 mL/h which is meeting needs. Will continue to monitor 06/13: Follow up. Pt remains intubated and paralyzed requiring intermittent proning. Pt currently on Levophed at 8 mcg/min. TF continues to meet >75% of estimated needs. Chart reviewed. Will continue to monitor. 06/09: Follow up. Pt remains intubated and sedated. It is documented that pts tube feed is at 35 mL/hr. It is noted that pt has been in the prone position overnight. Will continue to monitor 06/06: Follow up. Pt remains intubated, sedated, and paralyzed. No pressor support. Pt continues on TF of Vital HP, infusing at 20 ml/hr at time of visit- RN unavailable to discuss rate. Pt not meeting needs with current TF > [address] Quigley regarding TF and goal rate, MD amenable to continuing goal rate while in prone position as it is not contraindicated. RD to modify TF order per MD. Chart reviewed. Will continue to monitor. 06/02: Follow up. Chart reviewed. Pt remains intubated and sedated. Pt is receiving Vital HP @ 30 mL/hr at this time - not meeting nutritional needs. Current recommendations remain appropriate. Will continue to monitor. 05/29: Follow up. Chart reviewed. Pt remains intubated and sedated. MD note indicates that pt remains in the prone position. Pt is receiving Vital HP @ 20 mL/hr at this time. Current recommendations remain appropriate. Will continue to monitor. 05/24: Follow up. Pt remains intubated and sedated, requiring to be proned- no paralytic currently. Vital HP infusing at goal rate, providing >75% of estimated needs. Chart reviewed. Current TF rec's remain appropriate. Will continue to monitor. 05/22: Follow up. Pt remains intubated, paralyzed, and sedated. TF documented as Glucerna 1.2 at 30 ml/hr currently, not meeting needs. Pt requiring proning at times. Pt with chest tubes to output. Current TF rec's remain appropriate. Chart reviewed. Will continue to monitor. 05/17: Follow up. Chart reviewed. Pt remains intubated. RN reports that pts tube feeding is at 10 mL/hr at this time and pt is in the prone position. Current recommendations remain appropriate. Will continue to monitor. 05/12: Pt was intubated yesterday and tube feeding was ordered. It is recorded that pt consumed 25% of breakfast on 05/10 and was previously consuming 50-100% of meals. Recommendations provided. Will continue to monitor. 05/09: 65 YOM admitted for hypoxia and pneumonia due to COVID-19. Pt assessed today for LOS. Attempted to call pt's room x 2, no answer- unable to obtain hx at this time. No wt loss or poor intake indicated at admit per MD notes. Pt with 50-100% intake since admit. Pt currently on Vapotherm per current respiratory status. Labs and meds reviewed. LBM 05/08, skin intact. Chart reviewed. Will continue to monitor. Principal Problems/Diagnoses: hypoxia, pneumonia due to COVID-19 PMH: HTN, HLD GI: last recorded BM 06/20, soft/large/round abdomen Skin: stage 2 pressure ulcer/suspected DTI left ear, stage 2 pressure ulcer bilateral cheek, stage 2 pressure ulcer lower urethral meatus Labs: 06/21: Na 154, K 3.5, BUN 65, Cr 0.66, Glu 144 06/16: Na 146, K 4.1, BUN 38, Cr 0.69, Glu 138, AST 35 06/13: Na 142, K 3.1, BUN 29, Cr 0.62, Gluc 123, Ca 8.8 06/09: Na 148, K 4.5, BUN 32, Cr 0.56, Glu 160 06/06: Na 147, K 3.3, BUN 22, Cr 0.62, Gluc 135, Ca 9 06/02: Na 140, K 3.5, BUN 24, Cr 0.66, Glu 116 05/29: Na 141, K 3.9, BUN 24, Cr 0.66, Glu 87, Ca 9.5 05/24: Na 147, K 3, BUN 27, Cr 0.61, Gluc 100, POC Gluc 123-126, Ca 6.3, Mg 1.5 05/22: Na 143, K 4.5, BUN 28, Cr 0.77, Gluc 122, POC Gluc 122-136 (05/17/20) Na 141, K 4.2, BUN 18, Cr 0.61, Glu 87, Ca 8.7 (05/12/20) Na 141, K 5.4, BUN 33, Cr 0.76, Glu 118, Ca 7.9 Meds: cefepime, fentanyl, lactulose, pepcid, rocuronium, mannitol Ht: 66 inches Wt: 211 lbs (06/21) 213 lbs (06/16) 215 lbs (06/13) 211 lbs (06/08) 212 lbs (06/06) 221 lbs (06/02) 246 lbs (05/28) 218 lbs (05/09) BMI: 35.2 using weight of 218 lbs IBW: 142 lbs Malnutrition Evaluation (06/16/20) The patient does not meet criteria for a specified degree of malnutrition at this time. Energy intake: pt is meeting kcal and protein needs with current tube feed rate Weight loss: does not meet criteria- wt fluctuations since admit noted with no significant change from admit wt, likely fluid related Fat loss: none- ample skinfold thickness of upper arms, observed outside of pt room Muscle loss: none- shoulder round, observed outside of pt room Supporting Evidence: Fluid accumulation: trace edema in lower extremities Functional Status: unable to evaluate- pt intubated and sedated Nutrition Prescription (Diet Order): Pivot 1.5 @ goal of 45 mL/hr- infusing at goal rate per chart (1620 kcal and 101 gm protein) Estimated Nutritional Needs: 2598-7314 calories/day (22-25 kcal/kg IBW) 97-129 g protein/day (1.5-2 g pro/kg IBW) Diet Adequacy: Meeting calorie needs, meeting protein needs Tolerance: tolerating TF Diet Education Needs Assessment: Diet education is not indicated, pt is intubated Nutrition Care Level: moderate Nutrition Diagnosis: Inadequate oral intake related to acute respiratory failure/mechanical ventilation as evidenced by requiring enteral nutrition. Goal: Patient will meet 75-100% of estimated needs by follow up Progress: goal met Interventions: - Composition, Rate, Route Monitoring/Evaluation: -Total energy intake, Total protein intake, Formula/Solution, Weight change Signed: Ruth Kern RD, LD
[2020-06-21 17:37] LABS: ABG PH 7.23 (7.35-7.45)
[2020-06-21 17:38] LABS: ABG HCO3 32 mmol/L (22-26); ABG PCO2 77 mmHg (35-45); ABG PO2 49 mmHg (80-105); ABG TCO2 34
[2020-06-21] MEDS ORDERED: VANCOMYCIN 1GM/NS 250 ML 250 ML IV ONE (18:15)
[2020-06-21] MEDS: ROCURONIUM BROMIDE 1,250 MG in SODIUM CHLORIDE 0.9% 250ML 125 ML IV PRN (18:44)
--- NOTE | 2020-06-21 18:53 | Diagnostic Imaging Report ---
EXAMINATION: CHEST SINGLE (PORTABLE) INDICATION: proned COMPARISON: Multiple prior chest x-ray examinations most recent dated 06/19/20. FINDINGS: AP view TUBES and LINES: Endotracheal tube is again identified with tip projecting 5.6 cm above the cadence. Enteric tube is seen coursing inferiorly on the field of view. Right PICC is stable. LUNGS/PLEURA: Lungs are well inflated. Unchanged diffuse bilateral interstitial airspace opacities... There is no pleural effusion or pneumothorax. HEART AND MEDIASTINUM: The cardiomediastinal silhouette is unremarkable. BONES AND SOFT TISSUES: No acute osseous lesion. Soft tissues are unremarkable. UPPER ABDOMEN: No free air under the diaphragm. IMPRESSION: Unchanged diffuse bilateral interstitial airspace opacities compatible with multifocal pneumonia. Signed by: Nikolay Jose MD on 06/21/2020 6:49 PM
[2020-06-21] MEDS: MEROPENEM 1GM 100 ML IV SCH (20:00)
--- NOTE | 2020-06-21 21:05 | Progress Note ---
DATE: 06/21/2020 CONSULTANTS: 1. Dr. Quigley, curing pickling packer. 2. Dr. Robertson, Infectious Disease. 3. Dr. Neumann, Cardiology. 4. Dr. Archer, Renal. SUBJECTIVE: No events overnight. Remains intubated and sedated in supine position. Ultrafiltration is planned for later today. PHYSICAL EXAMINATION: VITAL SIGNS: Temperature 98.1, pulse is 86, respirations 32, blood pressure 148/61, pulse ox is 91% on the vent. GENERAL: Intubated and sedated. CARDIOVASCULAR: Regular rate and rhythm. LUNGS: With decreased breath sounds, intubated. ABDOMEN: Soft. NEUROLOGIC: Sedated. MUSCULOSKELETAL: Mild edema in the lower extremities and upper extremities. SKIN: Dry. LABORATORY DATA: WBC 15.52, hemoglobin 7.8, hematocrit 27.2, and platelets 270. Sodium 154, potassium 3.5, CO2 of 27, BUN is 65, creatinine 0.66, estimated GFR is greater than 60, glucose 144, AST 30, ALT 19. ABG; pH 7.23, pCO2 of 77, PO2 is 49, bicarb is 32. Chest x-ray shows unchanged diffuse bilateral interstitial airspace opacity, compatible with multifocal pneumonia. IMPRESSION: 1. Acute respiratory failure due to coronavirus disease 2019 pneumonia. The patient remains intubated and sedated, vent management per Pulmonology. Continue Merrem per ID. 2. Eypuc-rv-hkdndrp anemia. Hemoglobin is stable with transfusion. We will continue to monitor. 3. Leukocytosis. IV antibiotic cefepime changed to Merrem. 4. Hypertension. Continue hydralazine p.r.n. 5. Right upper extremity edema and redness. Venous doppler done, pending results. 6. Atrial fibrillation. Rate controlled. Continue amiodarone p.o. per Cardiology. 7. Generalized edema. Ultrafiltration per Renal today. 8. Deep venous thrombosis prophylaxis. Continue Lovenox. PLAN: To continue supportive therapy, cefepime changed to Merrem per ID, and ultrafiltration per Renal later today. Dictated by MARAH Castro Yiching Anmol Rodriguez MD MY/MODL /[id number]
[2020-06-21 21:15] LABS: ABG HCO3 33 mmol/L (22-26); ABG PCO2 96 mmHg (35-45); ABG PH 7.14 (7.35-7.45); ABG PO2 94 mmHg (80-105); ABG TCO2 36
[2020-06-22] VITALS (17 sets, daily range): BP systolic 109–177; BP diastolic 40–56
[2020-06-22] MEDS: MIDAZOLAM HCL 5MG/ML 10ML VIAL 100 ML IV PRN ×2 (01:11→22:10)
--- NOTE | 2020-06-22 02:26 | Progress Note ---
DATE: 06/21/2020 Cardiology Progress Note SUBJECTIVE: The patient is intubated on the vent, sedated with Versed and fentanyl and paralyzed with rocuronium. He is still requiring high oxygen with FiO2 of 70%. OBJECTIVE: VITAL SIGNS: Blood pressure of 148/61 mmHg with a heart rate of 86 beats per minute. The oxygen saturation is 91%, and he is afebrile. He is sedated. NECK: Supple. Trachea is midline. CHEST: Decreased breath sounds. CARDIOVASCULAR: Regular rate and rhythm. Normal S1 and S2. No tachycardia. ABDOMEN: Soft. Bowel sounds present. EXTREMITIES: Edematous upper extremities. CARDIOVASCULAR MEDICATIONS: Reviewed. LABORATORY DATA: White blood cell count of 15.5 thousand, hemoglobin is 7.8, hematocrit is 27, and platelet count is 270,000. Sodium is 154, potassium is 3.5, chloride is 115, bicarb is 27, BUN is 65, creatinine is 0.66, and glucose is 144. Blood gas this morning on FiO2 of 75%, shows a worsening acidosis with a pH of 7.27 from 7.35 the day before. The pCO2 is 65 from a pCO2 of 56 the day before. The pO2 is 79, and oxygen saturation is 93%. ASSESSMENT AND PLAN: 1. COVID-19 infection with associated pneumonia. 2. Acute respiratory failure with prolonged intubation and ventilatory support. 3. Hypertension. 4. Paroxysmal atrial fibrillation, on amiodarone. 5. Acute diastolic heart failure. RECOMMENDATIONS: Continue current cardiovascular medications. Volume management is guided by Nephrology. Continue anticoagulation for atrial fibrillation. Continue amiodarone. Lo Rodriguez MD EC/MODL /[id number]
[2020-06-22] MEDS: MEROPENEM 1GM 100 ML IV SCH ×3 (03:30→20:00)
[2020-06-22] MEDS: FENTANYL 2000MCG/NS 250 250 ML IV PRN (03:31)
[2020-06-22 05:48] LABS: BASOPHILS % 0.2 % (0.0-1.0); EOSINOPHILS # (AUTO) 0.7 (0.0-0.4); EOSINOPHILS % 4.4 % (0.0-6.0); HEMATOCRIT 27.1 % (38.2-49.6); HEMOGLOBIN 7.6 g/dL (14.0-18.0); LYMPHOCYTES # (AUTO) 1.7 (1.0-3.2); LYMPHOCYTES % 11.6 % (18.0-39.1); MEAN CORPUSCULAR HEMOGLOBIN 28.4 pg (28-32); MEAN CORPUSCULAR VOLUME 101.1 fL (81-99); MONOCYTES % 6.5 % (4.4-11.3); NEUTROPHILS # (AUTO) 11.1 (2.1-6.9); NEUTROPHILS % 75.7 % (38.7-80.0); PLATELET COUNT 277 x10e3/uL (140-360); RED BLOOD COUNT 2.68 x10e6/uL (4.3-5.7); RED CELL DISTRIBUTION WIDTH 19.5 % (11.7-14.4)
[2020-06-22 06:31] LABS: ALANINE AMINOTRANSFERASE 21 IU/L (0-55); ALBUMIN 3.1 g/dL (3.5-5.0); ALBUMIN/GLOBULIN RATIO 0.8 (0.8-2.0); ALKALINE PHOSPHATASE 73 IU/L (40-150); BLOOD UREA NITROGEN 55 mg/dL (7-26); BUN/CREATININE RATIO 90 (6-25); CALCIUM 8.5 mg/dL (8.4-10.2); CARBON DIOXIDE 29 mmol/L (22-29); CHLORIDE 115 mmol/L (98-107); CREATININE, SERUM 0.61 mg/dL (0.72-1.25); EST GLOMERULAR FILTRATION RATE > 60 ML/MIN (60-); GLUCOSE 147 mg/dL (74-118); SODIUM 154 mmol/L (136-145)
[2020-06-22] MEDS: HYDROCHLOROTHIAZIDE 25 MG TAB PO SCH (07:53)
[2020-06-22] MEDS: BALSAM PERU/CASTOR OIL 60 GM OINT...G. TP SCH (07:53)
[2020-06-22] MEDS: LACTULOSE SYRUP 20 GM/30 ML UDC PO SCH (07:53)
[2020-06-22] MEDS: AMIODARONE HCL 200 MG TAB PO SCH ×2 (07:53→18:02)
[2020-06-22] MEDS: FAMOTIDINE 20 MG/2 ML VIAL IV SCH ×2 (07:53→18:02)
[2020-06-22] MEDS: ENOXAPARIN INJ 80 MG/0.8 ML SYR SC SCH ×2 (07:53→21:24)
--- NOTE | 2020-06-22 10:21 | Progress Note ---
DATE: SUBJECTIVE: The patient is still in the prone position. Last night, he had some desaturations. His ventilator support was increased and his FiO2 was increased. This morning, he is back on 75% with pressure control. His PEEP is set at 8 and his pressure control above PEEP is 26. Respiratory rate is 36. PHYSICAL EXAMINATION: VITAL SIGNS: The blood pressure is 134/48, saturation is 100%. HEENT: Shows no facial swelling or erythema. There is no oral endotracheal tube. LYMPHATIC: Shows no submandibular, cervical, or supraclavicular adenopathy. CARDIAC: Reveals regular rate and rhythm with normal S1, S2. LUNGS: Auscultation of lungs reveals crackles and rhonchi bilaterally. There is a right PICC line in good position. The site is clean. There is no drainage. CARDIAC: Reveals a regular rate and rhythm with normal S1, S2. LUNGS: Auscultation of lungs reveals rhonchorous breath sounds bilaterally. There is no wheezing. ABDOMEN: Soft and nontender. There is no rebound or guarding. EXTREMITIES: Shows no leg edema or calf tenderness. There is no cyanosis or clubbing. SKIN: Shows no rashes. LABORATORY DATA: Sodium is 154, and the TVT-le-bqxeqeulpm ratio is 55 and 0.61. Chloride is 115. Albumin is 3.1. White blood cell count is 14.6 and hemoglobin is 7.6. The platelet count is 277. RADIOGRAPHIC DATA: Chest x-ray shows bilateral airspace opacities. IMPRESSION: 1. Acute respiratory failure. 2. Viral pneumonia and COVID-19 infection. 3. Anemia secondary to chronic blood loss. 4. Diabetes. 5. Atrial fibrillation. 6. Anasarca. PLAN: 1. Repeat ABG later today. 2. Return the patient in the prone position. 3. Continue Lovenox. 4. Continue enteral feedings and free water. 5. Complete antibiotics. 6. Continue Versed, fentanyl and rocuronium. Greater than 35 minutes in direct critical care time. Manuel Quigley MD LM/MIKE /[id number]
[2020-06-22 10:45] LABS: ABG HCO3 31 mmol/L (22-26); ABG PCO2 60 mmHg (35-45); ABG PH 7.32 (7.35-7.45); ABG PO2 112 mmHg (80-105); ABG TCO2 33
--- NOTE | 2020-06-22 12:33 | Progress Note ---
DATE: SUBJECTIVE: Events over the past 24 hours have been noted and the patient remains intubated on a ventilator. PHYSICAL EXAMINATION: VITAL SIGNS: Blood pressure is 134/48, pulse 77, respirations 36. The intake and output in the last 24 hours, he has had 6195 in and 3400 out. He has been positive 2795. He is on a ventilator. CARDIOVASCULAR: Regular rate and rhythm. LUNGS: Crackles with high frequency bilaterally. ABDOMEN: Decreased bowel sounds. EXTREMITIES: He has edema especially of the arms. LABORATORY RESULTS: Sodium 154, potassium 4, chloride 115, bicarbonate 29, BUN and creatinine 55 and 0.6 respectively. IMPRESSION: 1. COVID pneumonia. 2. Anasarca. 3. Fluid overload. 4. Hyponatremia. 5. Contraction metabolic alkalosis. 6. Anemia. PLAN: The patient is in a positive fluid balance today by about +2000 mL. The patient has also been in positive fluid balance yesterday and the day before yesterday. I have not ultrafiltrated the patient in two days. I think we will do an ultrafiltration session today. The patient will continue the hydrochlorothiazide and also the free water for the sodium. I am hopeful that with the ultrafiltration, the sodium will not worsen any. Ather MD LAWRENCE Singh/MIKE /[id number]
--- NOTE | 2020-06-22 14:29 | NUR ---
infectious disease progress note Patient seen and examined chart reviewedThe patient is still in the prone position. Last night, he had some desaturations. His ventilator support was increased and his FiO2 was increased. the patient remains intensive care unit discussed with medical team This morning, he is back on 75% with pressure control. His PEEP is set at 8 and his pressure control above PEEP is 26. Respiratory rate is 36. PHYSICAL EXAMINATION: VITAL SIGNS: The blood pressure is 134/48, saturation is 100%. HEENT: Shows no facial swelling or erythema. There is no oral endotracheal tube. LYMPHATIC: Shows no submandibular, cervical, or supraclavicular adenopathy. CARDIAC: Reveals regular rate and rhythm with normal S1, S2. LUNGS: Auscultation of lungs reveals crackles and rhonchi bilaterally. There is a right PICC line in good position. The site is clean. There is no drainage. CARDIAC: Reveals a regular rate and rhythm with normal S1, S2. LUNGS: Auscultation of lungs reveals rhonchorous breath sounds bilaterally. There is no wheezing. ABDOMEN: Soft and nontender. There is no rebound or guarding. EXTREMITIES: Shows no leg edema or calf tenderness. There is no cyanosis or clubbing. SKIN: Shows no rashes. LABORATORY DATA: Sodium is 154, and the CHM-lb-fcthcamzrs ratio is 55 and 0.61. Chloride is 115. Albumin is 3.1. White blood cell count is 14.6 and hemoglobin is 7.6. The platelet count is 277. RADIOGRAPHIC DATA: Chest x-ray shows bilateral airspace opacities. IMPRESSION: 1. Acute respiratory failure. 2. Viral pneumonia and COVID-19 infection. 3. Anemia secondary to chronic blood loss. 4. Diabetes. 5. Atrial fibrillation. continue with supportive care as ordered concerned about hypernatremia Concern about dehydration Leukocytosis Anemia of chronic disease continue to observe
[2020-06-22 16:15] LABS: ABG PCO2 66 mmHg (35-45)
[2020-06-22 16:16] LABS: ABG HCO3 32 mmol/L (22-26); ABG PO2 81 mmHg (80-105); ABG TCO2 34
--- NOTE | 2020-06-22 22:10 | Progress Note ---
DATE: 06/22/2020 CONSULTANTS: 1. Dr. Quigley, senior java programmer. 2. Dr. Robertson, Infectious Disease. 3. Dr. Neumann, Cardiology. 4. Dr. Archer, Renal. SUBJECTIVE: The patient is in prone position, remains intubated and sedated. Ulceration planned today per Renal. PHYSICAL EXAMINATION: VITAL SIGNS: Temperature 97.8, pulse is 75, respirations 36, blood pressure 177/56, and pulse ox 100% on the vent. GENERAL: Sedated, intubated and is on ventilation. CARDIOVASCULAR: Regular rate and rhythm. LUNGS: Decreased breath sounds. ABDOMEN: Soft. NEUROLOGIC: Sedated. MUSCULOSKELETAL: Mild edema in upper extremities. SKIN: Dry with some pressure ulcer on sacrum. LABORATORY DATA: WBC 14.62, hemoglobin 7.6, hematocrit 27.1, and platelets 277. Sodium 154, potassium 4.0, CO2 of 29, creatinine 0.61, and BUN 55. Blood sugar 147, AST 28, and ALT 21. Blood gases; pH 7.3, pCO2 of 66, pO2 of 81, bicarb 32, total CO2 of 34. ABG base excess 5.0. IMPRESSION: 1. Acute respiratory failure due to COVID-19 pneumonia, in prone position, intubated and sedated, and management per senior java programmer, Dr. Quigley. Continue on Merrem per ID. Remains afebrile. 2. Chronic anemia. Hemoglobin is stable, post transfusion, we will continue to monitor. 3. Leukocytosis. Improving with Merrem per ID. WBC is 14.6. 4. Hypertension. Continue hydralazine and hydrochlorothiazide. 5. Right upper extremity edema. Venous Doppler done. 6. Atrial fibrillation. Rate controlled, continue on amiodarone p.o. per Cardiology. 7. Generalized edema. Ultrafiltration per Renal. 8. Deep vein thrombosis prophylaxis. Continue Lovenox. PLAN: Continue supportive therapy, Merrem per ID, and ultrafiltration per Renal. Dictated by MARAH Castro Alicja Rodriguez MD MY/MODL /[id number]
--- NOTE | 2020-06-22 22:56 | Progress Note ---
DATE: 06/22/2020 Cardiology Progress Note SUBJECTIVE: The patient continues to be on the vent, prone position. He has required increased vent support overnight. PHYSICAL EXAMINATION: VITAL SIGNS: Blood pressure is 177/56 mmHg with a heart rate of 80. The FiO2 is 75% and he is afebrile. NECK: Supple. Trachea is midline. LUNGS: Decreased breath sounds, scattered ronchi. CARDIOVASCULAR: Regular rate and rhythm. No tachycardia. ABDOMEN: Soft. EXTREMITIES: Edematous upper extremities. There is no cyanosis or clubbing. RADIOGRAPHIC DATA: Chest x-ray shows bilateral airspace densities. CARDIOVASCULAR MEDICATIONS: Reviewed. LABORATORY DATA: White blood cell count of 14.6, hemoglobin is 7.6, hematocrit is 27, and the platelet count is 277,000. His sodium is 154 with a potassium of 4 and chloride is 115, bicarb is 29, BUN is 55, creatinine is 0.61, glucose is 147. Liver tests are within reference range. The blood gas showed pH of 7.3, improved from yesterday's pH of 7.14 and the pCO2 of 66, pO2 of 81. The bicarb of 32. The oxygen saturation 94% with FiO2 of 75%, decreased from 90% overnight. ASSESSMENT: 1. Acute respiratory failure. 2. COVID-19 infection and viral pneumonia. 3. Anemia. 4. Diabetes. 5. Atrial fibrillation. PLAN: 1. Continue cardiac medications. 2. Vent management as per Pulmonary service. 3. Continue enteral feedings and free water. 4. Continue antibiotics. Lo Rodriguez MD EC/MODL /[id number] MTDD
[2020-06-23] VITALS (17 sets, daily range): BP systolic 85–146; BP diastolic 37–56
[2020-06-23] MEDS: MEROPENEM 1GM 100 ML IV SCH ×3 (04:18→19:54)
[2020-06-23 05:40] LABS: BASOPHILS % 0.3 % (0.0-1.0); EOSINOPHILS # (AUTO) 0.4 (0.0-0.4); EOSINOPHILS % 2.3 % (0.0-6.0); HEMATOCRIT 27.5 % (38.2-49.6); HEMOGLOBIN 7.5 g/dL (14.0-18.0); LYMPHOCYTES # (AUTO) 1.7 (1.0-3.2); LYMPHOCYTES % 10.5 % (18.0-39.1); MEAN CORPUSCULAR HEMOGLOBIN 28.8 pg (28-32); MEAN CORPUSCULAR HGB CONC 27.3 g/dL (31-35); MEAN CORPUSCULAR VOLUME 105.8 fL (81-99); MONOCYTES # (AUTO) 1.1 (0.2-0.8); MONOCYTES % 6.9 % (4.4-11.3); NEUTROPHILS # (AUTO) 12.6 (2.1-6.9); NEUTROPHILS % 78.9 % (38.7-80.0); PLATELET COUNT 220 x10e3/uL (140-360); RED CELL DISTRIBUTION WIDTH 19.3 % (11.7-14.4)
[2020-06-23 06:03] LABS: ALANINE AMINOTRANSFERASE 30 IU/L (0-55); ALBUMIN/GLOBULIN RATIO 0.8 (0.8-2.0); ALKALINE PHOSPHATASE 94 IU/L (40-150); ANION GAP 13.8 mmol/L (8-16); BLOOD UREA NITROGEN 72 mg/dL (7-26); BUN/CREATININE RATIO 90 (6-25); CALCIUM 8.2 mg/dL (8.4-10.2); CARBON DIOXIDE 29 mmol/L (22-29); CHLORIDE 115 mmol/L (98-107); EST GLOMERULAR FILTRATION RATE > 60 ML/MIN (60-); GLUCOSE 124 mg/dL (74-118); POTASSIUM 4.8 mmol/L (3.5-5.1); SODIUM 153 mmol/L (136-145)
[2020-06-23] MEDS: FENTANYL 2000MCG/NS 250 250 ML IV PRN (06:15)
[2020-06-23] MEDS: MIDAZOLAM HCL 5MG/ML 10ML VIAL 100 ML IV PRN (06:16)
[2020-06-23 07:36] LABS: ANISOCYTOSIS MODERATE; HYPOCHROMASIA MODERATE; PLATELET ESTIMATE ADEQUATE; RBC MORPHOLOGY COMMENT ABNORMAL
[2020-06-23 07:37] LABS: MICROCYTOSIS MODERATE; PLATELET MORPHOLOGY COMMENT NORMAL; POLYCHROMASIA FEW
--- NOTE | 2020-06-23 09:33 | Progress Note ---
DATE: SUBJECTIVE: The patient is still in the prone position. He remains on a PRVC mode of ventilation with a FiO2 of 75%. His PEEP is set at 8 and his pressure control above PEEP is 26. His respiratory rate is set at 36. He is afebrile. PHYSICAL EXAMINATION: VITAL SIGNS: The blood pressure is 108/43 and the heart rate is 82. Saturation is now 98%. HEENT: Shows no facial swelling or erythema. There is an oral endotracheal tube. There is a PICC line. The patient has an arterial line. CARDIAC: Reveals regular rate and rhythm with normal S1 and S2. LUNGS: Auscultation of lungs reveals crackles at the bases. There is no wheezing. ABDOMEN: Soft and nontender. There is no rebound or guarding. EXTREMITIES: Shows no leg edema or calf tenderness. There is no cyanosis or clubbing. SKIN: Shows no rashes. NEUROLOGIC: Shows the patient to be sedated. LABORATORY DATA: White blood cell count is 15.9, hemoglobin is 7.5, and the platelet count is 220. BUN to creatinine ratio is 72 to 0.8. The sodium is 153. The other electrolytes are within normal limits. RADIOGRAPHIC DATA: Shows bilateral infiltrates. IMPRESSION: 1. Acute respiratory failure. 2. Viral pneumonia and COVID-19 infection. 3. Anemia, unspecified. 4. Hypernatremia. 5. Anasarca. 6. Diabetes. 7. Atrial fibrillation. PLAN: 1. Decrease FiO2 and minute ventilation as tolerated and repeat ABG. 2. Continue Lovenox. 3. Switch the patient to supine position. 4. Continue enteral feedings. 5. Complete antibiotics. 6. Continue Versed, fentanyl, and rocuronium. Greater than 35 minutes in direct critical care time. Manuel Quigley MD [facility]/MODL /[id number]
[2020-06-23] MEDS: AMIODARONE HCL 200 MG TAB PO SCH ×2 (15:20→18:09)
[2020-06-23] MEDS: LACTULOSE SYRUP 20 GM/30 ML UDC PO SCH (15:20)
[2020-06-23] MEDS: ENOXAPARIN INJ 80 MG/0.8 ML SYR SC SCH ×2 (15:20→21:00)
[2020-06-23] MEDS: FAMOTIDINE 20 MG/2 ML VIAL IV SCH ×2 (15:20→18:09)
[2020-06-23] MEDS: HYDROCHLOROTHIAZIDE 25 MG TAB PO SCH (15:20)
[2020-06-23] MEDS ORDERED: DEXTROSE 5% 1,000 ML IV ONE (15:30)
[2020-06-23 15:41] LABS: ABG PCO2 69 mmHg (35-45); ABG PH 7.24 (7.35-7.45)
[2020-06-23 15:42] LABS: ABG HCO3 30 mmol/L (22-26); ABG PO2 75 mmHg (80-105); ABG TCO2 32
[2020-06-23 15:43] LABS: ABG HCO3 31 mmol/L (22-26); ABG PCO2 77 mmHg (35-45); ABG PH 7.21 (7.35-7.45); ABG PO2 113 mmHg (80-105); ABG TCO2 34
--- NOTE | 2020-06-23 17:49 | Progress Note ---
DATE: 06/23/2020 CONSULTANTS: 1. Dr. Quigley, cardiac cath technologist. 2. Dr. Robertson, Infectious Disease. 3. Dr. Neumann, Cardiology. 4. Dr. Noble, Renal. SUBJECTIVE: The patient remains in prone position, intubated and sedated. No further events overnight. PHYSICAL EXAMINATION: VITAL SIGNS: Temperature 97.7, pulse is 82, respirations 36, blood pressure 108/43, and pulse ox is 100% on the vent. GENERAL: Sedated, intubated, in prone position. CARDIOVASCULAR: Regular rate and rhythm. LUNGS: Decreased breath sounds. ABDOMEN: Soft. NEUROLOGIC: Sedated. MUSCULOSKELETAL: Mild edema in the lower extremity and increased edema on the face and upper extremities. SKIN: Dry with some pressure ulcer on sacrum . LABORATORY DATA: WBC 15.9, hemoglobin 7.5, hematocrit 27.5, and platelets 220. Sodium 153, potassium 4.8, BUN 72, creatinine 0.8, and glucose 124. AST 40, ALT 30, and alkaline phosphatase 94. Blood gas ABG; pH 7.3, pCO2 66, PO2 81, and bicarb 32. IMPRESSION: 1. Acute respiratory failure due to COVID-19 pneumonia. In prone position, remains intubated and sedated. Vent management per cardiac cath technologist. Continue Merrem per ID. 2. Chronic anemia. Hemoglobin is stable at 7.3. We will continue to monitor closely. 3. Leukocytosis. WBC 15.9 today. We will continue on Merrem per ID. 4. Hypertension. Continue hydrochlorothiazide and hydralazine p.r.n. 5. Upper extremity edema. Venous Doppler is negative for deep venous thrombosis. 6. Atrial fibrillation. Rate controlled, continue on amiodarone per Cardiology. 7. Deep vein thrombosis prophylaxis. Continue Lovenox. 8. Hypernatremia. Sodium 153. Free water per NG. PLAN: To continue IV antibiotics, supportive therapy, and ultrafiltration planned for tomorrow per Renal. Dictated by MARAH Castro Alicja Rodriguez MD MY/MODL /[id number]
--- NOTE | 2020-06-23 18:14 | Progress Note ---
DATE: 06/23/2020 Renal Progress Note SUBJECTIVE: Events over the past 24 hours have been noted. The patient did undergo ultrafiltration yesterday 2.5 L of ultrafiltrated. Today, the patient's events have been noted. He is currently in the prone position. OBJECTIVE: VITAL SIGNS: Stable. His blood pressure is 121/64. GENERAL: The patient is in the prone position. He is intubated. He is on a ventilator. CARDIOVASCULAR: Regular rate and rhythm. LUNGS: Crackles and high-pitched squeals bilaterally. ABDOMEN: Decreased bowel sounds. EXTREMITIES: The patient has some more edema of the arms and of the face and up the rest of the body. LABORATORY RESULTS: Sodium 153, potassium 4.8, chloride 115, bicarb 29, BUN and creatinine 22 and 0.8 respectively. IMPRESSION: 1. COVID pneumonia. 2. Anasarca. 3. Fluid overload. 4. Hypernatremia. 5. Contraction metabolic alkalosis. 6. Anemia. The patient underwent ultrafiltration yesterday, 2.5 L were ultrafiltered and the patient has 2600 mL in and 1450 out, but actually when you put in a factor in the ultrafiltration, the patient is negative. The patient remains hypernatremic even with the free water. I may give 1 L of D5 water to correct hypernatremia. I do not want to be hypernatremic for a long time and then also increase the free water as well and he will begin ultrafiltration tomorrow as well. The patient's prognosis is significantly guarded. Ather R MD [facility]/MODL /[id number]
--- NOTE | 2020-06-23 18:36 | NUR ---
progress note infectious disease parents note patient seen and examined chart reviewed he patient remains in prone position, intubated and sedated. No further events overnight. PHYSICAL EXAMINATION: VITAL SIGNS: Temperature 97.7, pulse is 82, respirations 36, blood pressure 108/43, and pulse ox is 100% on the vent. GENERAL: Sedated, intubated, in prone position. CARDIOVASCULAR: Regular rate and rhythm. LUNGS: Decreased breath sounds. ABDOMEN: Soft. NEUROLOGIC: Sedated. MUSCULOSKELETAL: Mild edema in the lower extremity and increased edema on the face and upper extremities. SKIN: Dry with some pressure ulcer on sacrum Otherwise there is no rash LABORATORY DATA: WBC 15.9, hemoglobin 7.5, hematocrit 27.5, and platelets 220. Sodium 153, potassium 4.8, BUN 72, creatinine 0.8, and glucose 124. AST 40, ALT 30, and alkaline phosphatase 94. Blood gas ABG; pH 7.3, pCO2 66, PO2 81, and bicarb 32. IMPRESSION: 1. Acute respiratory failure due to COVID-19 pneumonia. In prone position, remains intubated and sedated. Vent management per vehicle insurance agent. superimposed bacterial pneumonia and meropenem to finish 14 days 2. Chronic anemia. Hemoglobin is stable at 7.3. We will continue to monitor closely. 3. Leukocytosis. WBC 15.9 today. recheck 4. Hypertension. Continue hydrochlorothiazide and hydralazine p.r.n. 5. Upper extremity edema. Venous Doppler is negative for deep venous thrombosis. 6. Atrial fibrillation. Rate controlled, continue on amiodarone per Cardiology. 7. Deep vein thrombosis prophylaxis. Continue Lovenox. 8. Hypernatremia. Sodium 153. Free water per NG.
--- NOTE | 2020-06-23 19:49 | Progress Note ---
DATE: 06/23/2020 Cardiology Progress Note SUBJECTIVE: Remains intubated and sedated, prone position. OBJECTIVE: VITAL SIGNS: Temperature 97.7, heart rate is 79, blood pressure 122/40, respiratory rate 36, and O2 saturation 100%. GENERAL: Intubated and sedated, in prone position. NECK: Supple. CHEST: With rales and decreased breath sounds. CARDIOVASCULAR: Regular rate and rhythm. Normal S1 and S2. ABDOMEN: Soft. Bowel sounds positive. EXTREMITIES: Trace edema. Normothermic. CARDIOVASCULAR MEDICATIONS: Have been reviewed. Hydrochlorothiazide 25 mg daily, amiodarone 200 mg b.i.d., Lovenox 80 q.12 hours, and potassium chloride as needed. STUDIES: Reviewed. Sodium 153, potassium 4.8, chloride 115, bicarbonate 29, BUN 72, creatinine 0.8, and glucose 124. White blood cells 15.9, hemoglobin 7.5, and platelets 220. PT 14.6, PTT 44.7, and INR 1.08. AST 40, ALT 30, alkaline phosphatase 94, and total bilirubin 0.4. ASSESSMENT AND PLAN: A 65-year-old man presents with COVID-19 infection, community-acquired pneumonia, acute respiratory failure, hypertension, paroxysmal atrial fibrillation, and [id number] diastolic heart failure. RECOMMENDATIONS: Continue current cardiovascular medications. Upon extubation, no additional procedures being considered. Can switch to long-term anticoagulation with Eliquis 5 q.12 hours for now. Continue current management. Volume status improved. MD CHRISTINE Bal/MIKE /[id number]
[2020-06-23] MEDS: ROCURONIUM BROMIDE 1,250 MG in SODIUM CHLORIDE 0.9% 250ML 125 ML IV PRN (20:30)
[2020-06-24] VITALS (16 sets, daily range): BP systolic 113–160; BP diastolic 34–54
[2020-06-24] MEDS: MIDAZOLAM HCL 5MG/ML 10ML VIAL 100 ML IV PRN ×3 (00:40→19:30)
[2020-06-24] MEDS: MEROPENEM 1GM 100 ML IV SCH ×3 (04:03→20:44)
[2020-06-24] MEDS: FENTANYL 2000MCG/NS 250 250 ML IV PRN ×2 (04:04→13:58)
[2020-06-24 05:56] LABS: BASOPHILS % 0.2 % (0.0-1.0); EOSINOPHILS # (AUTO) 0.5 (0.0-0.4); EOSINOPHILS % 3.4 % (0.0-6.0); LYMPHOCYTES # (AUTO) 1.5 (1.0-3.2); LYMPHOCYTES % 11.3 % (18.0-39.1); MEAN CORPUSCULAR HGB CONC 29.4 g/dL (31-35); MEAN CORPUSCULAR VOLUME 102.2 fL (81-99); MONOCYTES # (AUTO) 0.8 (0.2-0.8); NEUTROPHILS # (AUTO) 10.5 (2.1-6.9); NEUTROPHILS % 78.1 % (38.7-80.0); PLATELET COUNT 227 x10e3/uL (140-360); RED CELL DISTRIBUTION WIDTH 19.3 % (11.7-14.4)
[2020-06-24 06:29] LABS: ALANINE AMINOTRANSFERASE 24 IU/L (0-55); ALBUMIN 2.7 g/dL (3.5-5.0); ALBUMIN/GLOBULIN RATIO 0.7 (0.8-2.0); ALKALINE PHOSPHATASE 79 IU/L (40-150); ANION GAP 16.5 mmol/L (8-16); BLOOD UREA NITROGEN 98 mg/dL (7-26); BUN/CREATININE RATIO 92 (6-25); CALCIUM 8.2 mg/dL (8.4-10.2); CARBON DIOXIDE 25 mmol/L (22-29); CHLORIDE 110 mmol/L (98-107); CREATININE, SERUM 1.06 mg/dL (0.72-1.25); EST GLOMERULAR FILTRATION RATE > 60 ML/MIN (60-); GLUCOSE 142 mg/dL (74-118); POTASSIUM 4.5 mmol/L (3.5-5.1); SODIUM 147 mmol/L (136-145)
[2020-06-24 06:33] LABS: HEMOGLOBIN 6.9 g/dL (14.0-18.0)
[2020-06-24 06:34] LABS: HEMATOCRIT 23.5 % (38.2-49.6)
[2020-06-24] MEDS ORDERED: HEPARIN SOD (PORCINE) 1000 UNIT/ML SDV ONE (08:06)
[2020-06-24] MEDS ORDERED: SODIUM CHLORIDE 0.9% 1000ML 2,000 ML ONE (08:07)
[2020-06-24] MEDS ORDERED: HEPARIN SOD (PORCINE) 1000 UNIT/ML SDV IV PRN (08:30)
[2020-06-24] MEDS: ENOXAPARIN INJ 80 MG/0.8 ML SYR SC SCH ×2 (09:09→20:44)
[2020-06-24] MEDS: AMIODARONE HCL 200 MG TAB PO SCH ×2 (09:09→18:23)
[2020-06-24] MEDS: FAMOTIDINE 20 MG/2 ML VIAL IV SCH ×2 (09:09→18:23)
[2020-06-24] MEDS: HYDROCHLOROTHIAZIDE 25 MG TAB PO SCH (09:09)
[2020-06-24] MEDS: LACTULOSE SYRUP 20 GM/30 ML UDC PO SCH (09:09)
[2020-06-24 10:24] LABS: ABG PH 7.27 (7.35-7.45)
[2020-06-24 10:25] LABS: ABG HCO3 27 mmol/L (22-26); ABG PCO2 59 mmHg (35-45); ABG PO2 78 mmHg (80-105); ABG TCO2 29
[2020-06-24] MEDS ORDERED: ACETAMINOPHEN 325 MG TAB PO ONE (10:30)
[2020-06-24] MEDS ORDERED: SODIUM CHLORIDE 0.9% 250ML 250 ML IV ONE (10:30)
--- NOTE | 2020-06-24 10:52 | Progress Note ---
DATE: Pulmonary Critical Care Progress Note SUBJECTIVE: The patient is receiving ultrafiltration again today. His FiO2 is decreased to 65%. He remains on a pressure control set at 36 with a PEEP of 10 and a pressure control above PEEP of 30. He is synchronized with the ventilator. He is not having any bleeding. He is not requiring any pressors. PHYSICAL EXAMINATION: VITAL SIGNS: The patient is afebrile. Blood pressure is 116/40, and heart rate is 73. HEENT: No facial swelling or erythema. There is an oral endotracheal tube. LYMPHATIC: No submandibular, cervical, or supraclavicular adenopathy. CARDIAC: Regular rate and rhythm with normal S1, S2. LUNGS: Auscultation of lungs reveals rhonchorous breath sounds bilaterally. There is no wheezing. ABDOMEN: Soft, nontender. There is no rebound or guarding. EXTREMITIES: No leg edema or calf tenderness. There is no cyanosis or clubbing. LABORATORY DATA: Sodium is 147. BUN to creatinine ratio is 98 to 1.06. The white blood cell count is 13.4 and hemoglobin is 6.9. The platelet count is 227,00. IMPRESSION: 1. Acute respiratory failure. 2. Viral pneumonia and coronavirus disease-19 infection. 3. Anemia, unspecified. 4. Diabetes. 5. Atrial fibrillation. PLAN: 1. Complete ultrafiltration. 2. Switch the patient back to supine position. 3. Repeat ABG later today. 4. Continue enteral feedings. 5. Continue Versed and fentanyl and wean rocuronium as tolerated. 6. Scheduled for tracheostomy next week. Case discussed with daughter. Case also discussed with Nephrology, Internal Medicine, nursing, and Respiratory. Greater than 35 minutes in direct critical care time. Manuel Quigley MD [facility]/MODL /[id number]
--- NOTE | 2020-06-24 12:36 | Progress Note ---
DATE: 06/24/2020 Cardiology Progress Note SUBJECTIVE: Intubated, sedated in prone position. OBJECTIVE: VITAL SIGNS: Temperature 97.3, heart rate 73, blood pressure 116/40, respiratory rate 36, O2 saturation 97%. GENERAL: Intubated and sedated in prone position. NECK: Supple. CHEST: Rales and decreased breath sounds. CARDIOVASCULAR: Regular rate and rhythm. Normal S1, S2. ABDOMEN: Soft. Bowel sounds positive. EXTREMITIES: 1+ edema. Normothermic, undergoing ultrafiltration today. CARDIOVASCULAR MEDICATIONS: Have been reviewed, on hydrochlorothiazide 25 mg daily, amiodarone 200 mg b.i.d., and Lovenox 60 q.12 hours. STUDIES: Reviewed. Sodium 147, potassium 4.5, chloride 110, bicarbonate 25, BUN 98, creatinine 1.06, glucose 142. White blood cells 13.4, hemoglobin 6.9, platelets 227,000. INR 1. AST 26, ALT 24, alkaline phosphatase 79. ASSESSMENT AND PLAN: A 65-year-old man presents with COVID-19 infection, community-acquired pneumonia, acute respiratory failure, anemia, paroxysmal atrial fibrillation, acute on chronic diastolic heart failure, and hypertension. RECOMMEND: 1. Continue current cardiovascular medications. 2. Volume optimization per Nephrology expertise. 3. Consider PRBC transfusion. MD CHRISTINE Bal/MIKE /[id number]
--- NOTE | 2020-06-24 14:27 | Progress Note ---
DATE: SUBJECTIVE: Mr. Bob is still in the hospital, day #52, ultrafiltration, on the vent. Vent setting reviewed. PHYSICAL EXAMINATION: GENERAL: Currently intubated, sedated. VITAL SIGNS: Stable, afebrile. HEENT: Not icteric. NECK: Supple. CHEST: Crackles bilateral. HEART: S1 and S2. ABDOMEN: Soft. Bowel sounds present. EXTREMITIES: No edema. SKIN: No rash. LABORATORY DATA: Sputum showing yeast. Blood cultures, coagulase-negative Staph. He is currently on meropenem. His white count is 13.5 and hemoglobin 6.9. His sodium 147 and creatinine 1.06. IMPRESSION: Respiratory failure, status post COVID-19, anemia, diabetes mellitus, acute kidney injury, fluid overload, and aspiration pneumonia. Recommend to finish 7 days of antibiotic and then reassess. We will follow. MD JOSE Garay/MIKE /[id number]
[2020-06-24 18:33] LABS: ABG HCO3 26 mmol/L (22-26); ABG PCO2 60 mmHg (35-45); ABG PH 7.25 (7.35-7.45); ABG PO2 80 mmHg (80-105); ABG TCO2 28
[2020-06-25] VITALS (17 sets, daily range): BP systolic 84–139; BP diastolic 34–50
[2020-06-25] MEDS: FENTANYL 2000MCG/NS 250 250 ML IV PRN (01:25)
[2020-06-25] MEDS: MEROPENEM 1GM 100 ML IV SCH ×3 (04:06→23:15)
[2020-06-25] MEDS: MIDAZOLAM HCL 5MG/ML 10ML VIAL 100 ML IV PRN (05:45)
--- NOTE | 2020-06-25 05:58 | NUR ---
PICC dressing and bed pad saturated with blood. Old dressing removed, mild oozing noted at PICC insertion site. Manual pressure applied to site, sterile site care performed. Gauze dressing applied over site. Will continue to monitor.
[2020-06-25 06:07] LABS: BASOPHILS % 0.3 % (0.0-1.0); EOSINOPHILS # (AUTO) 0.7 (0.0-0.4); EOSINOPHILS % 4.4 % (0.0-6.0); HEMATOCRIT 28.2 % (38.2-49.6); HEMOGLOBIN 8.2 g/dL (14.0-18.0); LYMPHOCYTES # (AUTO) 1.8 (1.0-3.2); LYMPHOCYTES % 11.6 % (18.0-39.1); MEAN CORPUSCULAR HEMOGLOBIN 28.4 pg (28-32); MEAN CORPUSCULAR HGB CONC 29.1 g/dL (31-35); MEAN CORPUSCULAR VOLUME 97.6 fL (81-99); MONOCYTES # (AUTO) 0.8 (0.2-0.8); MONOCYTES % 5.1 % (4.4-11.3); NEUTROPHILS # (AUTO) 11.8 (2.1-6.9); NEUTROPHILS % 77.2 % (38.7-80.0); PLATELET COUNT 239 x10e3/uL (140-360); RED BLOOD COUNT 2.89 x10e6/uL (4.3-5.7); RED CELL DISTRIBUTION WIDTH 18.8 % (11.7-14.4)
[2020-06-25 06:52] LABS: ALANINE AMINOTRANSFERASE 21 IU/L (0-55); ALBUMIN 2.8 g/dL (3.5-5.0); ALBUMIN/GLOBULIN RATIO 0.7 (0.8-2.0); ALKALINE PHOSPHATASE 92 IU/L (40-150); ANION GAP 16.9 mmol/L (8-16); BLOOD UREA NITROGEN 112 mg/dL (7-26); BUN/CREATININE RATIO 98 (6-25); CALCIUM 8.4 mg/dL (8.4-10.2); CARBON DIOXIDE 23 mmol/L (22-29); CHLORIDE 107 mmol/L (98-107); CREATININE, SERUM 1.14 mg/dL (0.72-1.25); EST GLOMERULAR FILTRATION RATE > 60 ML/MIN (60-); GLUCOSE 141 mg/dL (74-118); POTASSIUM 4.9 mmol/L (3.5-5.1); SODIUM 142 mmol/L (136-145)
--- NOTE | 2020-06-25 08:18 | Diagnostic Imaging Report ---
EXAMINATION: CHEST SINGLE (PORTABLE) INDICATION: ^resp failure ^[id number] ^0615 COMPARISON: Multiple prior chest x-ray examinations most recent dated 06/21/2020 FINDINGS: AP view TUBES and LINES: Endotracheal tube is again identified with tip projecting 5.6 cm above the cadence. Enteric tube is seen coursing inferiorly on the field of view. Right PICC is stable. LUNGS/PLEURA: Lungs are well inflated. Unchanged diffuse bilateral interstitial airspace opacities... There is no pleural effusion or pneumothorax. HEART AND MEDIASTINUM: The cardiomediastinal silhouette is unremarkable. BONES AND SOFT TISSUES: No acute osseous lesion. Soft tissues are unremarkable. UPPER ABDOMEN: No free air under the diaphragm. IMPRESSION: Unchanged diffuse bilateral interstitial airspace opacities compatible with multifocal pneumonia. Signed by: Nikolay Jose MD on 06/25/2020 8:15 AM
[2020-06-25] MEDS: ENOXAPARIN INJ 80 MG/0.8 ML SYR SC SCH ×2 (08:40→23:15)
[2020-06-25] MEDS: AMIODARONE HCL 200 MG TAB PO SCH ×2 (08:40→17:39)
[2020-06-25] MEDS: FAMOTIDINE 20 MG/2 ML VIAL IV SCH ×2 (08:40→17:39)
[2020-06-25] MEDS: HYDROCHLOROTHIAZIDE 25 MG TAB PO SCH (08:40)
[2020-06-25 10:02] LABS: ANISOCYTOSIS SLIGHT; HYPOCHROMASIA SLIGHT; PLATELET ESTIMATE ADEQUATE; PLATELET MORPHOLOGY COMMENT NORMAL; POLYCHROMASIA FEW; RBC MORPHOLOGY COMMENT ABNORMAL
--- NOTE | 2020-06-25 10:15 | Progress Note ---
DATE: SUBJECTIVE: The patient is now in a supine position. He remains on pressure control mode of ventilation. His rate is set at 36 and his FiO2 is 70%. His PEEP is set at 10 and his pressure above PEEP is 30. He is afebrile. He is on rocuronium as well as Versed and fentanyl. PHYSICAL EXAMINATION: VITAL SIGNS: Blood pressure is 115/44, saturations in the low 90s on the above settings, heart rate is 72. HEENT: Shows no facial swelling or erythema. LYMPHATIC: Shows no submandibular, cervical, supraclavicular adenopathy. CARDIAC: Reveals regular rate and rhythm with normal S1, S2. LUNGS: Auscultation of lungs reveals rhonchorous breath sounds bilaterally. There is no wheezing. ABDOMEN: Soft and nontender. There is no rebound or guarding. EXTREMITIES: Shows no leg edema or calf tenderness. There is no cyanosis or clubbing. SKIN: Shows no rashes. NEUROLOGICAL: Shows no focal abnormalities. LABORATORY DATA: Creatinine is 1.14 and the BUN is 112. The other electrolytes are within normal limits. White blood cell count is 15.3 and hemoglobin is 8.2. The platelet count is 239. RADIOGRAPHIC DATA: Cyst x-ray shows bilateral infiltrates. IMPRESSION: 1. Acute respiratory failure. 2. Viral pneumonia and COVID-19 infection. 3. Anasarca. 4. Diabetes. 5. Atrial fibrillation. 6. Anemia, unspecified. 7. Moderate protein-calorie malnutrition. PLAN: 1. Continue current ventilator settings and monitor ABG. 2. Attempt to wean rocuronium. 3. Continue Versed and fentanyl. 4. Continue enteral feedings. 5. Possible ultrafiltration today. Greater than 35 minutes in direct critical care time. Manuel Quigley MD [facility]/MODL /[id number]
[2020-06-25 11:02] LABS: ABG HCO3 26 mmol/L (22-26); ABG PCO2 56 mmHg (35-45); ABG PH 7.27 (7.35-7.45); ABG PO2 65 mmHg (80-105); ABG TCO2 28
--- NOTE | 2020-06-25 11:40 | Progress Note ---
DATE: 06/24/2020 CONSULTANTS: 1. Dr. Quigley, filenet architect. 2. Dr. Robertson, Infectious Disease. 3. Dr. Neumann, Cardiology. 4. Dr. Noble, Renal. SUBJECTIVE: The patient in prone position, intubated and sedated. Blood transfusion in progress. Ultrafiltration done this morning, removing 3 L. PHYSICAL EXAMINATION: VITAL SIGNS: Temperature 97.2, pulse is 71, respirations 36, blood pressure 133/48, pulse ox is 98% on the vent. GENERAL: Sedated and intubated in prone position. CARDIOVASCULAR: Regular rate and rhythm. LUNGS: Decreased breath sounds. ABDOMEN: Soft. NEUROLOGIC: Sedated. MUSCULOSKELETAL: Upper extremity and face edema noted. SKIN: Dry with pressure ulcer on sacral and face. LABORATORY DATA: WBC 13.41, hemoglobin 6.9, hematocrit 23.5, platelet is 227,000. Sodium 147, potassium 4.51, BUN 98, creatinine 1.06, estimated GFR is 60, glucose 142, AST 26, ALT 24. This morning pH 7.27. ABG, pCO2 is 59, PO2 is 78, bicarb is 27. IMPRESSION: 1. Acute respiratory failure due to COVID-19 pneumonia. Remains in prone position. Intubated and sedated. Vent management per filenet architect. Continue on Merrem. 2. Acute on chronic anemia. Hemoglobin is 6.9. We will transfuse 1 unit of blood. 3. Leukocytosis. WBC is 13.4. Continue antibiotics per ID. 4. Hypertension. We will continue on hydrochlorothiazide and hydralazine as needed. 5. Upper extremity 18. Venous Doppler is negative for DVT. 6. Atrial fibrillation. Rate controlled sinus rhythm. Continue amiodarone per Cardiology. 7. Hypernatremia. Sodium is 147, improving. Continue free water per NG. 8. Generalized edema. Ultrafiltration today, removed 3 L. Further recs per Renal. 9. Deep vein thrombosis prophylaxis. Continue Lovenox. PLAN: Continue with a unit of blood transfusion, antibiotics and ultrafiltration today. Dictated by MARAH Castro Yiching Anmol Rodriguez MD MY/MODL /[id number]
--- NOTE | 2020-06-25 12:55 | Progress Note ---
DATE: SUBJECTIVE: The patient is seen and evaluated. Available labs and notes reviewed. Discussed with the nurse. REVIEW OF SYSTEMS: Unable to obtain review of systems secondary to the patient being mechanically orally intubated, vent setting. Discussed with the nurse also with nasogastric feeding tube. PHYSICAL EXAMINATION: VITAL SIGNS: Temperature is 97.7, pulse 72, respiration 36, blood pressure 115/44 with O2 saturation of 90%. GENERAL: Orally intubated. Facial wounds noted secondary to proning the patient, comfortable in bed. No acute distress. No interaction. Sedated. No pressors. CV: S1 and S2. CHEST: Equal expansion. Decreased breath sounds. ABDOMEN: Bowel sounds positive. HEENT: Moist. As mentioned above, facial bruising and wounds secondary to proning and supportive devices for oral intubation. EXTREMITIES: 1+ edema. LABORATORY STUDIES: White count of 15.29 slightly elevated from yesterday, which was 13.4, however, remains stable in 15,000, hemoglobin 8.2 with a platelet count of 239. Sodium 142, potassium 4.9, and creatinine 1.14. The creatinine is inching up. MICROBIOLOGY STUDIES: No new microbiology studies. Sputum from 06/20/2020 showed Martina albicans. Blood culture 06/20/2020, was negative final. RADIOLOGY STUDIES: Chest x-ray from today showed unchanged diffuse bilateral interstitial airspace opacities compatible with multifocal pneumonia. ASSESSMENT AND PLAN: 1. COVID-19 pneumonitis. 2. Respiratory failure. 3. Pneumonia. 4. Aspiration pneumonia. 5. Diabetes mellitus. 6. Renal failure with a creatinine as mentioned above. 7. Monitor renal function, as creatinine is inching up. 8. Leukocytosis. 9. Medication list reviewed. The patient remains on Lovenox and Merrem. Continue with meropenem for total of 7 days. The patient has right upper extremity PICC line and a left groin Trialysis line. Had some bleeding from the PICC line. Lovenox was held by and going to be restarted. Monitor the patient clinically and follow up with the labs. Refer to chart for more information. Dictated by Nikolay Hicks PA-C (Al) Rocío Robertson MD /MODL /[id number]
--- NOTE | 2020-06-25 22:17 | Progress Note ---
DATE: 06/25/2020 Cardiology Progress Note SUBJECTIVE: Intubated, sedated. OBJECTIVE: VITAL SIGNS: Temperature 98.2, heart rate 78, respiratory rate 36, blood pressure 108/37, O2 saturation 90%. GENERAL: Intubated and sedated. NECK: Supple. CHEST: Rales and decreased breath sounds CARDIOVASCULAR: Regular rate and rhythm. Normal S1 and S2. ABDOMEN: Soft. Bowel sounds positive. EXTREMITIES: 1+ edema. Telemetry, in sinus rhythm. CARDIOVASCULAR MEDICATIONS: Reviewed. 1. Amiodarone 200 mg b.i.d. 2. Lovenox 60 mg q.12 hours. LABORATORY DATA: Studies reviewed. Sodium 142, potassium 4.9, chloride 107, bicarbonate 23. BUN 112, creatinine 1.1, glucose 141. White blood cells 15, hemoglobin 8.2, platelets 239. PT 14.6, PTT 44.7, INR 1.08. AST 24, ALT 21, alkaline phosphatase 92, total bilirubin 0.4. ASSESSMENT AND PLAN: A 65-year-old man with acute respiratory failure, coronavirus disease 2019 infection, community-acquired pneumonia, paroxysmal atrial fibrillation, hypertension, [id number] diastolic heart failure, and anemia. RECOMMEND: 1. Continue current cardiovascular medications. Blood pressure remains at goal. 2. Continue amiodarone to maintain sinus rhythm on telemetry. 3. Continue Lovenox therapeutic anticoagulation and monitor H and H. MD CHRISTINE Bal/MIKE /[id number]
[2020-06-26] VITALS (19 sets, daily range): BP systolic 96–142; BP diastolic 31–55
--- NOTE | 2020-06-26 00:03 | Progress Note ---
DATE: 06/25/2020 CONSULTANTS: 1. Dr. Quigley, griddle cook. 2. Rocío Robertson, Infectious Disease. 3. Dr. Neumann, Cardiology. 4. Dr. Singh, Renal. SUBJECTIVE: The patient in supine position, intubated and sedated. No events overnight. PHYSICAL EXAMINATION: VITAL SIGNS: Temperature 98.2, pulse is 80, respirations 36, blood pressure 108/37, pulse ox is 90% on the vent. GENERAL: Sedated and intubated in supine position. CARDIOVASCULAR: Regular rate and rhythm. LUNGS: Decreased breath sounds. ABDOMEN: Soft, obese. NEUROLOGIC: Sedated. MUSCULOSKELETAL: Upper extremity and trace edema greater than the bilateral lower extremities. SKIN: Dry with pressure ulcers on sacrum and face. PSYCH: Unable to evaluate due to sedation. LABORATORY DATA: WBC 15.29, hemoglobin 8.2, hematocrit 28.2, platelets 239. Sodium 142, potassium 4.9, BUN is 112, creatinine 1.14, estimated GFR is greater than 60, glucose 141, calcium 8.4, AST 24, ALT 21. ABGs; pH 7.27, pCO2 56, PO2 65, bicarb 23, O2 saturation 89. Chest x-ray; unchanged diffuse bilateral interstitial airspace opacities compatible with multifocal pneumonia. IMPRESSION: 1. Acute respiratory failure due to COVID-19 pneumonia. Remains sedated and intubated in supine position. Vent management per griddle cook. Continue Merrem per ID. 2. Acute on chronic anemia. Status post transfusion yesterday. Hemoglobin is 8.2 today. We will continue to monitor. 3. Leukocytosis. WBC is 15.2. We will continue Merrem per ID. 4. Hypertension. Continue hydrochlorothiazide and hydralazine as needed. 5. Upper extremity edema. Venous Doppler is negative for DVT. Diuretics and ultrafiltration per Renal. 6. Atrial fibrillation. Rate controlled, continue amiodarone p.o. b.i.d. per Cardiology. 7. Hypernatremia. Improved, continue free water per NG. 8. Deep vein thrombosis prophylaxis. Continue Lovenox. Continue IV antibiotics, and ultrafiltration per Renal, and vent management per griddle cook. Dictated by MARAH Castro MD KIM Chavez/SHIRLEYL /[id number]
[2020-06-26] MEDS: FENTANYL 2000MCG/NS 250 250 ML IV PRN ×2 (00:20→20:20)
[2020-06-26] MEDS: MIDAZOLAM HCL 5MG/ML 10ML VIAL 100 ML IV PRN ×2 (00:20→20:25)
[2020-06-26] MEDS: MEROPENEM 1GM 100 ML IV SCH ×3 (04:48→20:06)
[2020-06-26 05:43] LABS: ALANINE AMINOTRANSFERASE 18 IU/L (0-55); ALBUMIN 3.1 g/dL (3.5-5.0); ALBUMIN/GLOBULIN RATIO 0.8 (0.8-2.0); ALKALINE PHOSPHATASE 88 IU/L (40-150); ANION GAP 17.3 mmol/L (8-16); BASOPHILS % 0.2 % (0.0-1.0); BLOOD UREA NITROGEN 76 mg/dL (7-26); BUN/CREATININE RATIO 78 (6-25); CALCIUM 8.3 mg/dL (8.4-10.2); CARBON DIOXIDE 22 mmol/L (22-29); CHLORIDE 104 mmol/L (98-107); CREATININE, SERUM 0.98 mg/dL (0.72-1.25); EOSINOPHILS # (AUTO) 0.7 (0.0-0.4); EOSINOPHILS % 4.5 % (0.0-6.0); EST GLOMERULAR FILTRATION RATE > 60 ML/MIN (60-); GLUCOSE 119 mg/dL (74-118); HEMATOCRIT 24.8 % (38.2-49.6); HEMOGLOBIN 7.3 g/dL (14.0-18.0); LYMPHOCYTES # (AUTO) 2.2 (1.0-3.2); LYMPHOCYTES % 14.6 % (18.0-39.1); MEAN CORPUSCULAR HEMOGLOBIN 28.4 pg (28-32); MEAN CORPUSCULAR HGB CONC 29.4 g/dL (31-35); MEAN CORPUSCULAR VOLUME 96.5 fL (81-99); MONOCYTES # (AUTO) 0.8 (0.2-0.8); MONOCYTES % 5.6 % (4.4-11.3); NEUTROPHILS # (AUTO) 10.7 (2.1-6.9); NEUTROPHILS % 73.1 % (38.7-80.0); PLATELET COUNT 213 x10e3/uL (140-360); POTASSIUM 4.3 mmol/L (3.5-5.1); RED BLOOD COUNT 2.57 x10e6/uL (4.3-5.7); RED CELL DISTRIBUTION WIDTH 18.8 % (11.7-14.4); SODIUM 139 mmol/L (136-145)
--- NOTE | 2020-06-26 06:25 | Diagnostic Imaging Report ---
EXAMINATION: CHEST SINGLE (PORTABLE) INDICATION: ^resp failure ^[id number] ^0510 COMPARISON: 06/25/2020 FINDINGS: AP view TUBES and LINES: Stable endotracheal tube, enteric tube, and right PICC. LUNGS: Lungs are well inflated. Persistent diffuse bilateral airspace opacities. PLEURA: No pleural effusion or pneumothorax. HEART AND MEDIASTINUM: The cardiomediastinal silhouette is unremarkable. BONES AND SOFT TISSUES: No acute osseous lesion. Questionable mild right neck base soft tissue emphysema, decreased from prior exam. UPPER ABDOMEN: No free air under the diaphragm. IMPRESSION: Diffuse bilateral airspace opacities, not significantly changed from prior exam. Signed by: Dr. Romeo Maciel MD on 06/26/2020 6:21 AM
[2020-06-26] MEDS: AMIODARONE HCL 200 MG TAB PO SCH ×2 (07:46→18:03)
[2020-06-26] MEDS: ENOXAPARIN INJ 80 MG/0.8 ML SYR SC SCH ×2 (07:46→20:54)
[2020-06-26] MEDS: FAMOTIDINE 20 MG/2 ML VIAL IV SCH (07:47)
[2020-06-26 07:48] LABS: ABG HCO3 28 mmol/L (22-26); ABG PCO2 52 mmHg (35-45); ABG PH 7.33 (7.35-7.45); ABG PO2 68 mmHg (80-105); ABG TCO2 29
--- NOTE | 2020-06-26 10:24 | Progress Note ---
DATE: Pulmonary Critical Care Progress Overall. SUBJECTIVE: The patient remains on Versed and fentanyl. He is off rocuronium. He is still on a pressure control at a rate of 36 with a PEEP of 10 and a pressure above PEEP of 30. His FiO2 is set at 70%. He is scheduled to receive ultrafiltration again today. PHYSICAL EXAMINATION: VITAL SIGNS: The patient is afebrile, blood pressure is 122/40, saturation is 94% and the pulse is 80. HEENT: Shows no facial swelling or erythema. LYMPHATIC: Shows no submandibular, cervical, or supraclavicular adenopathy. CARDIAC: Reveals regular rate and rhythm with normal S1, S2. LUNGS: Auscultation of lungs reveals rhonchorous breath sounds bilaterally. There is no wheezing. ABDOMEN: Soft and nontender. There is no rebound or guarding. EXTREMITIES: Shows no leg edema or calf tenderness. There is no cyanosis or clubbing. SKIN: Shows no rashes. NEUROLOGICAL: Shows no focal abnormalities. LABORATORY DATA: White blood cell count is 14.7, hemoglobin is 7.3, and the platelet count is 213. BUN to creatinine ratio is 76 to 0.98. Other electrolytes are within normal limits. IMPRESSION: 1. Acute respiratory failure. 2. Viral pneumonia and COVID-19 infection. 3. Anemia, unspecified. 4. Anasarca. 5. Diabetes. 6. Protein calorie malnutrition. PLAN: 1. Continue current ventilator settings. 2. Continue Versed and fentanyl. 3. Ultrafiltration again today. 4. Continue tube feedings. 5. The patient is scheduled for tracheostomy this coming week. Greater than 35 minutes in direct critical care time. Manuel Quigley MD [facility]/MODL /[id number]
--- NOTE | 2020-06-26 12:55 | Progress Note ---
DATE: 06/26/2020 CONSULTANTS: 1. Dr. Quigley, drug worker. 2. Dr. Robertson, Infectious Disease. 3. Dr. Neumann, cardiology. 4. Dr. Archer, Renal. SUBJECTIVE: The patient remains intubated and sedated in supine position. No events reported overnight. PHYSICAL EXAMINATION: VITAL SIGNS: Temperature 98.8, pulse is 80, respirations 36, blood pressure 122/39, pulse ox is 94% on the vent. GENERAL: Sedated and intubated. CARDIOVASCULAR: Regular rate and rhythm. LUNGS: With decreased breath sounds. ABDOMEN: Soft and obese. Active bowel sounds. NEUROLOGIC: Sedated. MUSCULOSKELETAL: Upper extremity edema greater than bilateral lower extremities. SKIN: Dry with multiple pressure ulcer and sacrum and face. PSYCH: Unable to evaluate due to sedation. LABORATORY DATA: WBC 14.68, hemoglobin 7.3, hematocrit 24.8. Sodium 139, potassium 4.3, BUN 76, creatinine 0.98, estimated GFR is greater than 60. AST 23, ALT 18. Chest x-ray shows diffuse bilateral airspace opacities, not significantly changed from prior exam. IMPRESSION: 1. Acute respiratory failure due to coronavirus disease 2019 pneumonia. Remains sedated and intubated in supine position. Vent management per drug worker and antibiotics per ID. 2. Chronic anemia. Hemoglobin is 7.3. We will continue to monitor. 3. Leukocytosis. WBC is 14.6. We will continue with Merrem per ID. 4. Hypertension. Continue hydrochlorothiazide and hydralazine as needed. 5. Significant upper extremity edema. Venous Doppler negative for deep venous thrombosis. Diuretics and ultrafiltration per Renal. 6. Atrial fibrillation. Sinus rhythm, continue on amiodarone per Cardiology. 7. Deep venous thrombosis prophylaxis. Continue Lovenox. PLAN: To continue IV antibiotics and ultrafiltration per Renal. Dictated by MARAH Castro Alicja Rodriguez MD MY/MODL /[id number]
--- NOTE | 2020-06-26 15:00 | Progress Note ---
DATE: 06/26/2020 Renal Progress Note SUBJECTIVE: Events over the past 24 hours have been noted. Events over the weekend have been noted. PHYSICAL EXAMINATION: VITAL SIGNS: Blood pressure 122/39, pulse 80, respiration 36, afebrile. GENERAL: The patient is in the prone position. HEENT: The patient has facial plethora. CARDIOVASCULAR: Regular rate and rhythm. LUNGS: Decreased breath sound. High-pitched squeal bilaterally. ABDOMEN: Decreased bowel sounds. EXTREMITIES: The patient has more edema of the arms. LABORATORY RESULTS: Sodium 139, potassium 4.3, chloride 104, bicarbonate 22, BUN and creatinine 76 and 0.9 respectively. IMPRESSION: 1. COVID pneumonia. 2. Anasarca. 3. Fluid overload. 4. Azotemia. PLAN: The patient over the weekend was actually dialyzed because of the high BUN. The patient's BUN has come down. I am going to go ahead and have him ultrafilter today and dialyze at the same time. He is scheduled to go for a trach sometime this week. We will do 3 hours 3K bath, 2.5 calcium. We will ultrafilter 3 to 4 L as tolerated. Ather MD LAWRENCE Singh/MIKE /[id number]
--- NOTE | 2020-06-26 15:17 | NUR ---
INFECTIOUS DISEASE PROGRESS NOTE DR. RUTHERFORD SUBJECTIVE: The patient is seen and evaluated. Available labs and notes reviewed. Discussed with the nurse. REVIEW OF SYSTEMS: Unable to obtain review of systems secondary to the patient being mechanically intubated, vent setting. Discussed with the nurse also with nasogastric feeding tube. PHYSICAL EXAMINATION: VITAL SIGNS: REVIEWED GENERAL: Orally intubated. Facial wounds noted secondary to proning the patient, comfortable in bed. No acute distress. No interaction. Sedated. No pressors. CV: S1 and S2. CHEST: Equal expansion. Decreased breath sounds. ABDOMEN: Bowel sounds positive. HEENT: facial bruising and wounds secondary to proning and supportive devices for oral intubation. EXTREMITIES: 1+ edema. LABORATORY STUDIES: REVIEWED MICROBIOLOGY STUDIES: reviewed RADIOLOGY STUDIES: reviewed ASSESSMENT AND PLAN: 1. COVID-19 pneumonitis. 2. Respiratory failure. 3. Pneumonia. 4. Aspiration pneumonia. 5. Diabetes mellitus. 6. Renal failure with a creatinine as mentioned above. 7. Monitor renal function, as creatinine is inching up. 8. Leukocytosis. Merrem for 7 days Plans for a trach, pt is no longer infectious No need for retest PCR, as it will remain positive for several months Sakina Benedict MSN, LINING SETTER, AGACNP-BC Rocío Rutherford M.D
--- NOTE | 2020-06-26 16:17 | NUR ---
Nutrition Intervention Note RD Recommendation(s) for Physician: -Continue Pivot 1.5 at goal rate of 45 ml/hr (to provide 1620 kcal and 101 gm protein) -Pt may be fed when in prone position at goal rate in reverse Trendelenburg with HOB at 10-25 degrees. -Fluid/water management per MD Plan of Care: RD following, monitoring for tolerance and adequacy, tube feed recommendation Nutrition reason for involvement: follow up RD Assessment 06/26: Follow up. Chart reviewed. Pt remains intubated and sedated. Trach placement is being discussed per chart. Pt is tolerating tube feeding of Pivot at goal of 45 mL/hr which meets nutritional needs. Will continue to monitor. 06/21: Follow up. Chart reviewed. Pt had been receiving tube feeding at goal rate of 45 mL/hr per RN which meets nutritional needs. Will continue to monitor. 06/16: Follow up. Chart reviewed. Pt remains intubated and is in the supine position. Pts tube feeding is at goal rate of 45 mL/h which is meeting needs. Will continue to monitor 06/13: Follow up. Pt remains intubated and paralyzed requiring intermittent proning. Pt currently on Levophed at 8 mcg/min. TF continues to meet >75% of estimated needs. Chart reviewed. Will continue to monitor. 06/09: Follow up. Pt remains intubated and sedated. It is documented that pts tube feed is at 35 mL/hr. It is noted that pt has been in the prone position overnight. Will continue to monitor 06/06: Follow up. Pt remains intubated, sedated, and paralyzed. No pressor support. Pt continues on TF of Vital HP, infusing at 20 ml/hr at time of visit- RN unavailable to discuss rate. Pt not meeting needs with current TF > [address] Quigley regarding TF and goal rate, MD amenable to continuing goal rate while in prone position as it is not contraindicated. RD to modify TF order per MD. Chart reviewed. Will continue to monitor. 06/02: Follow up. Chart reviewed. Pt remains intubated and sedated. Pt is receiving Vital HP @ 30 mL/hr at this time - not meeting nutritional needs. Current recommendations remain appropriate. Will continue to monitor. 05/29: Follow up. Chart reviewed. Pt remains intubated and sedated. MD note indicates that pt remains in the prone position. Pt is receiving Vital HP @ 20 mL/hr at this time. Current recommendations remain appropriate. Will continue to monitor. 05/24: Follow up. Pt remains intubated and sedated, requiring to be proned- no paralytic currently. Vital HP infusing at goal rate, providing >75% of estimated needs. Chart reviewed. Current TF rec's remain appropriate. Will continue to monitor. 05/22: Follow up. Pt remains intubated, paralyzed, and sedated. TF documented as Glucerna 1.2 at 30 ml/hr currently, not meeting needs. Pt requiring proning at times. Pt with chest tubes to output. Current TF rec's remain appropriate. Chart reviewed. Will continue to monitor. 05/17: Follow up. Chart reviewed. Pt remains intubated. RN reports that pts tube feeding is at 10 mL/hr at this time and pt is in the prone position. Current recommendations remain appropriate. Will continue to monitor. 05/12: Pt was intubated yesterday and tube feeding was ordered. It is recorded that pt consumed 25% of breakfast on 05/10 and was previously consuming 50-100% of meals. Recommendations provided. Will continue to monitor. 05/09: 65 YOM admitted for hypoxia and pneumonia due to COVID-19. Pt assessed today for LOS. Attempted to call pt's room x 2, no answer- unable to obtain hx at this time. No wt loss or poor intake indicated at admit per MD notes. Pt with 50-100% intake since admit. Pt currently on Vapotherm per current respiratory status. Labs and meds reviewed. LBM 05/08, skin intact. Chart reviewed. Will continue to monitor. Principal Problems/Diagnoses: hypoxia, pneumonia due to COVID-19 PMH: HTN, HLD GI: last recorded BM 06/26 x 2, soft/large/round abdomen Skin: stage 2 pressure ulcer/suspected DTI left ear, stage 2 pressure ulcer bilateral cheek, stage 2 pressure ulcer lower urethral meatus Labs: 06/26: Na 139, K 4.3, BUN 76, Cr 0.98, Glu 119, Ca 8.3 06/21: Na 154, K 3.5, BUN 65, Cr 0.66, Glu 144 06/16: Na 146, K 4.1, BUN 38, Cr 0.69, Glu 138, AST 35 8/25: Na 142, K 3.1, BUN 29, Cr 0.62, Gluc 123, Ca 8.8 06/09: Na 148, K 4.5, BUN 32, Cr 0.56, Glu 160 06/06: Na 147, K 3.3, BUN 22, Cr 0.62, Gluc 135, Ca 9 06/02: Na 140, K 3.5, BUN 24, Cr 0.66, Glu 116 05/29: Na 141, K 3.9, BUN 24, Cr 0.66, Glu 87, Ca 9.5 05/24: Na 147, K 3, BUN 27, Cr 0.61, Gluc 100, POC Gluc 123-126, Ca 6.3, Mg 1.5 05/22: Na 143, K 4.5, BUN 28, Cr 0.77, Gluc 122, POC Gluc 122-136 (05/17/20) Na 141, K 4.2, BUN 18, Cr 0.61, Glu 87, Ca 8.7 (05/12/20) Na 141, K 5.4, BUN 33, Cr 0.76, Glu 118, Ca 7.9 Meds: amiodarone, antibiotic, fentanyl, mannitol Ht: 66 inches Wt: 211 lbs (06/21) 213 lbs (06/16) 215 lbs (06/13) 211 lbs (06/08) 212 lbs (06/06) 221 lbs (06/02) 246 lbs (05/28) 218 lbs (05/09) BMI: 35.2 using weight of 218 lbs IBW: 142 lbs Malnutrition Evaluation (06/16/20) The patient does not meet criteria for a specified degree of malnutrition at this time. Energy intake: pt is meeting kcal and protein needs with current tube feed rate Weight loss: does not meet criteria- wt fluctuations since admit noted with no significant change from admit wt, likely fluid related Fat loss: none- ample skinfold thickness of upper arms, observed outside of pt room Muscle loss: none- shoulder round, observed outside of pt room Supporting Evidence: Fluid accumulation: trace edema in lower extremities Functional Status: unable to evaluate- pt intubated and sedated Nutrition Prescription (Diet Order): Pivot 1.5 @ goal of 45 mL/hr- infusing at goal rate per chart (1620 kcal and 101 gm protein) Estimated Nutritional Needs: 0260-4233 calories/day (22-25 kcal/kg IBW) 97-129 g protein/day (1.5-2 g pro/kg IBW) Diet Adequacy: Meeting calorie needs, meeting protein needs Tolerance: tolerating TF Diet Education Needs Assessment: Diet education is not indicated, pt is intubated Nutrition Care Level: moderate Nutrition Diagnosis: Inadequate oral intake related to acute respiratory failure/mechanical ventilation as evidenced by requiring enteral nutrition. Goal: Patient will meet 75-100% of estimated needs by follow up Progress: goal met Interventions: - Composition, Rate, Route Monitoring/Evaluation: -Total energy intake, Total protein intake, Formula/Solution, Weight change Signed: Ruth Kern RD, LD
--- NOTE | 2020-06-26 22:21 | Progress Note ---
DATE: 06/26/2020 Cardiology Progress Note SUBJECTIVE: Intubated and sedated. OBJECTIVE: VITAL SIGNS: Temperature 98.8, heart rate is 81, blood pressure 121/39, respiratory rate 36, O2 saturation 94%. GENERAL: Intubated and sedated. NECK: Supple. CHEST: Rales and decreased breath sounds CARDIOVASCULAR: Regular rate and rhythm. Normal S1 and S2. ABDOMEN: Soft. Bowel sounds positive. EXTREMITIES: 1+ edema. Normothermic. CARDIOVASCULAR MEDICATIONS: Reviewed. Amiodarone 200 mg b.i.d., Lovenox 60 mg subcu q.12 hours. STUDIES: Reviewed. Sodium 139, potassium 4.3, chloride 104, bicarbonate 22, BUN 76, creatinine 0.9, glucose 119. White blood cells 14, hemoglobin 7.3, and platelets 213. INR 1.08. AST 22, ALT 18, and alkaline phosphatase 88. ASSESSMENT AND PLAN: A 65-year-old man, presents with anemia, paroxysmal atrial fibrillation, coronavirus disease 2019 infection, acute respiratory failure, community-acquired pneumonia, hypertension, acute diastolic heart failure. RECOMMEND: Continue current cardiovascular medications. Volume optimization per Nephrology expertise. Blood pressure remains at goal. MD CHRISTINE Bal/MIKE /[id number]
[2020-06-27] VITALS (17 sets, daily range): BP systolic 100–129; BP diastolic 33–46
[2020-06-27] MEDS: MEROPENEM 1GM 100 ML IV SCH ×2 (04:36→16:35)
[2020-06-27] MEDS: FENTANYL 2000MCG/NS 250 250 ML IV PRN (06:14)
[2020-06-27] MEDS: MIDAZOLAM HCL 5MG/ML 10ML VIAL 100 ML IV PRN (06:14)
[2020-06-27 07:29] LABS: BASOPHILS % 0.2 % (0.0-1.0); EOSINOPHILS # (AUTO) 0.7 (0.0-0.4); EOSINOPHILS % 5.6 % (0.0-6.0); HEMATOCRIT 25.5 % (38.2-49.6); HEMOGLOBIN 7.5 g/dL (14.0-18.0); LYMPHOCYTES # (AUTO) 1.9 (1.0-3.2); LYMPHOCYTES % 14.4 % (18.0-39.1); MEAN CORPUSCULAR HEMOGLOBIN 28.5 pg (28-32); MEAN CORPUSCULAR HGB CONC 29.4 g/dL (31-35); MONOCYTES # (AUTO) 0.9 (0.2-0.8); MONOCYTES % 6.5 % (4.4-11.3); NEUTROPHILS # (AUTO) 9.4 (2.1-6.9); NEUTROPHILS % 70.7 % (38.7-80.0); PLATELET COUNT 205 x10e3/uL (140-360); RED BLOOD COUNT 2.63 x10e6/uL (4.3-5.7); RED CELL DISTRIBUTION WIDTH 18.6 % (11.7-14.4)
[2020-06-27 07:45] LABS: ANION GAP 15.4 mmol/L (8-16); BLOOD UREA NITROGEN 56 mg/dL (7-26); BUN/CREATININE RATIO 67 (6-25); CALCIUM 8.2 mg/dL (8.4-10.2); CARBON DIOXIDE 23 mmol/L (22-29); CHLORIDE 104 mmol/L (98-107); CREATININE, SERUM 0.84 mg/dL (0.72-1.25); EST GLOMERULAR FILTRATION RATE > 60 ML/MIN (60-); GLUCOSE 131 mg/dL (74-118); POTASSIUM 4.4 mmol/L (3.5-5.1); SODIUM 138 mmol/L (136-145)
[2020-06-27 07:45] LABS: ABG HCO3 28 mmol/L (22-26); ABG PCO2 50 mmHg (35-45); ABG PH 7.35 (7.35-7.45); ABG PO2 76 mmHg (80-105); ABG TCO2 29
[2020-06-27] MEDS: AMIODARONE HCL 200 MG TAB PO SCH ×2 (08:00→18:04)
[2020-06-27] MEDS: ENOXAPARIN INJ 80 MG/0.8 ML SYR SC SCH ×2 (08:00→20:51)
--- NOTE | 2020-06-27 09:43 | Progress Note ---
DATE: Pulmonary Critical Care Progress Note SUBJECTIVE: The patient is currently on Versed and fentanyl. He is off rocuronium. The patient remains in the supine position. His pressure control was decreased today because of high plateau pressures. His pressure above PEEP is now 26 and his PEEP is set at 8. His respiratory rate is set at 34 and his FiO2 is 70%. PHYSICAL EXAMINATION: VITAL SIGNS: Blood pressure is 108/40 and the pulse is 70. Pulse ox is 94%. HEENT: Shows no facial swelling or erythema. LYMPHATIC: Shows no submandibular, cervical, or supraclavicular adenopathy. CARDIAC: Reveals regular rate and rhythm with normal S1, S2. LUNGS: Auscultation of lungs reveals rhonchorous breath sounds bilaterally. There is no wheezing. ABDOMEN: Soft and nontender. There is no rebound or guarding. EXTREMITIES: Shows no leg edema or calf tenderness. There is no cyanosis or clubbing. SKIN: Shows no rashes. RADIOGRAPHIC DATA: There are bilateral pulmonary infiltrates. IMPRESSION: 1. Acute respiratory failure. 2. Viral pneumonia and COVID-19 infection. 3. Anasarca. 4. Diabetes. 5. Moderate protein-calorie malnutrition. 6. Anemia, unspecified. PLAN: 1. Pressure control has been decreased. We will repeat ABG later today. 2. Place the patient in prone position. 3. Continue Versed and fentanyl. 4. Continue enteral feedings. 5. Monitor blood counts. 6. Continue Lovenox. 7. The patient is scheduled for tracheostomy later this week. Greater than 35 minutes in direct critical care time. Manuel Quigley MD [facility]/MODL /[id number]
--- NOTE | 2020-06-27 10:18 | Progress Note ---
DATE: 06/27/2020 Cardiology Progress Note. SUBJECTIVE: Intubated and sedated. OBJECTIVE: VITAL SIGNS: Temperature 98.7, heart rate 78, respiratory rate 34, blood pressure 109/38. GENERAL: Intubated and sedated. NECK: Supple. CHEST: Rales. Decreased breath sounds. CARDIOVASCULAR: Regular rate and rhythm. Normal S1, S2. ABDOMEN: Soft. EXTREMITIES: 1+ edema. CARDIOVASCULAR MEDICATIONS: Reviewed, Lovenox 60 mg q.12 hours and amiodarone 200 mg b.i.d. STUDIES: Reviewed, white blood cells 13, hemoglobin 7.5, and platelets 205. ASSESSMENT AND PLAN: 1. Omlya-ui-ekybwae diastolic heart failure. 2. Hypertension. 3. Acute respiratory failure. 4. COVID-19 infection. 5. Community-acquired pneumonia. 6. Paroxysmal atrial fibrillation. RECOMMEND: Continue current cardiovascular medications including amiodarone and Lovenox. MD CHRISTINE Bal/MIKE /[id number]
[2020-06-27 15:12] LABS: ABG HCO3 27 mmol/L (22-26); ABG PCO2 59 mmHg (35-45); ABG PH 7.27 (7.35-7.45); ABG PO2 59 mmHg (80-105); ABG TCO2 29
--- NOTE | 2020-06-27 16:15 | Progress Note ---
DATE: 06/27/2020 Renal progress note. SUBJECTIVE: Events over the past 24 hours have been noted. The patient remains on the ventilator. He is right now supine. PHYSICAL EXAMINATION: VITAL SIGNS: Stable. GENERAL: The patient has facial swelling and plethora. His arms are swollen. He does have IV access in his right arm. CARDIOVASCULAR: Regular rate and rhythm. LUNGS: Decreased breath sounds and crackles bilaterally. ABDOMEN: Decreased bowel sounds. EXTREMITIES: The patient has edema mostly of the arms. LABORATORY RESULTS: Sodium 138, potassium 4.4, chloride 104, bicarbonate 23, BUN and creatinine 36 and 0.8 respectively. Intake in the past 24 hours was 2896, output 525. IMPRESSION: 1. COVID pneumonia. 2. Anasarca. 3. Fluid overload. 4. Azotemia. PLAN: The patient underwent ultrafiltration yesterday. We removed 2.5 L but the patient is not really azotemic today. He will not get ultrafilter today. I will assess him tomorrow. Most likely, he will get ultrafiltration tomorrow. He is supposed to go for a trach later on this week. Ather MD LAWRENCE Singh/MIKE /[id number]
--- NOTE | 2020-06-27 17:31 | Progress Note ---
DATE: 06/27/2020 CONSULTANTS: 1. Dr. Quigley, chipper operator. 2. Dr. Robertson, Infectious Disease. 3. Dr. Neumann, Cardiology. 4. Dr. Archer, Renal. SUBJECTIVE: The patient is in supine position, intubated and sedated. No events reported overnight. PHYSICAL EXAMINATION: VITAL SIGNS: Temperature 98.6, pulse is 71, respirations 32, blood pressure 120/40, and pulse ox is 94% on the vent. GENERAL: Sedated and intubated in supine position. CARDIOVASCULAR: Regular rate and rhythm. LUNGS: With decreased breath sounds. ABDOMEN: Soft and obese. NEUROLOGIC: Sedated. MUSCULOSKELETAL: Upper extremity edema greater than bilateral lower extremity. SKIN: Dry with multiple pressure ulcers. LABORATORY DATA: WBC 13.23, hemoglobin is 7.5, hematocrit 25.5, and platelet is 205. Sodium 138, potassium 4.4, CO2 of 23, BUN 56, creatinine 0.84, blood glucose 131, and calcium 8.2. ABG; pH 7.27, pCO2 of 59, PO2 of 59, and bicarb 27. IMPRESSION: 1. Acute respiratory failure due to coronavirus disease-19 pneumonia. Remains sedated and intubated, vent management per Pulmonary and antibiotics per Infectious Disease. 2. Chronic anemia. Hemoglobin is stable. We will continue to monitor. 3. Leukocytosis. WBC is improving, continue Merrem. 4. Hypertension. Continue hydrochlorothiazide and hydralazine as needed. 5. Significant upper extremity edema. Venous Doppler negative for deep venous thrombosis. Diuretics and ultrafiltration per Renal. 6. Atrial fibrillation. Now sinus rhythm. Continue on amiodarone per Cardiology. 7. Deep vein thrombosis prophylaxis. Continue Lovenox. PLAN: To continue IV antibiotics and ultrafiltration per Renal, planning to place the patient in prone position to help with oxygenation. Dictated by MARAH Castro Alicja Rodriguez MD MY/MODL /[id number]
--- NOTE | 2020-06-27 18:06 | Progress Note ---
DATE: SUBJECTIVE: Mr. Bob remains in intensive care unit. The patient remains intubated, sedated, vent setting reviewed. OBJECTIVE: VITAL SIGNS: Stable, afebrile. HEENT: Normocephalic. NECK: Supple. CHEST: Few crackles. HEART: S1, S2. ABDOMEN: Soft. Bowel sounds present. EXTREMITIES: No edema. SKIN: No rash. IMPRESSION: 1. Respiratory failure, viral pneumonia, coronavirus disease-2019, diabetes mellitus. Continue to wean down of his sedation. Continue with supportive care. 2. This is day #7 of meropenem, I am going to discontinue for aspiration pneumonia. Recheck CBC. Recheck Chem panel. We will follow. MD JOSE Garay/MODL /[id number]
[2020-06-28] VITALS (25 sets, daily range): BP systolic 114–129; BP diastolic 41–48
[2020-06-28] MEDS: MIDAZOLAM HCL 5MG/ML 10ML VIAL 100 ML IV PRN ×2 (02:46→23:41)
[2020-06-28] MEDS: FENTANYL 2000MCG/NS 250 250 ML IV PRN ×2 (04:57→16:29)
[2020-06-28 05:15] LABS: BASOPHILS % 0.3 % (0.0-1.0); EOSINOPHILS # (AUTO) 0.5 (0.0-0.4); HEMATOCRIT 27.3 % (38.2-49.6); HEMOGLOBIN 7.9 g/dL (14.0-18.0); LYMPHOCYTES % 12.9 % (18.0-39.1); MEAN CORPUSCULAR HEMOGLOBIN 28.4 pg (28-32); MEAN CORPUSCULAR HGB CONC 28.9 g/dL (31-35); MEAN CORPUSCULAR VOLUME 98.2 fL (81-99); MONOCYTES % 6.3 % (4.4-11.3); NEUTROPHILS # (AUTO) 11.4 (2.1-6.9); PLATELET COUNT 198 x10e3/uL (140-360); RED BLOOD COUNT 2.78 x10e6/uL (4.3-5.7); RED CELL DISTRIBUTION WIDTH 18.2 % (11.7-14.4)
[2020-06-28 05:46] LABS: ALBUMIN 2.9 g/dL (3.5-5.0); ALBUMIN/GLOBULIN RATIO 0.7 (0.8-2.0); ANION GAP 17.2 mmol/L (8-16); CALCIUM 8.3 mg/dL (8.4-10.2); CREATININE, SERUM 1.21 mg/dL (0.72-1.25); POTASSIUM 5.2 mmol/L (3.5-5.1)
[2020-06-28 07:37] LABS: ABG HCO3 29 mmol/L (22-26); ABG PCO2 78 mmHg (35-45); ABG PH 7.16 (7.35-7.45); ABG PO2 135 mmHg (80-105); ABG TCO2 31
[2020-06-28] MEDS: AMIODARONE HCL 200 MG TAB PO SCH ×2 (09:07→17:38)
[2020-06-28] MEDS: ENOXAPARIN INJ 80 MG/0.8 ML SYR SC SCH (09:07)
--- NOTE | 2020-06-28 09:08 | Progress Note ---
DATE: SUBJECTIVE: The patient is still in the prone position. He is currently on a PRVC with pressure control at a rate of 38. His FiO2 is set at 70% and his PEEP is 8. His pressure above PEEP is 30. He remains on Versed and fentanyl. He is off rocuronium. PHYSICAL EXAMINATION: VITAL SIGNS: The patient is afebrile. The blood pressure is 124/46, saturation is 96% on the above settings. His pulse is 70. HEENT: Shows no facial swelling or erythema. LYMPHATIC: Shows no submandibular, cervical or supraclavicular adenopathy. CARDIAC: Reveals regular rate and rhythm with normal S1 and S2. LUNGS: Auscultation of lungs shows decreased breath sounds at the bases. There is no wheezing. ABDOMEN: Soft and nontender. There is no rebound or guarding. EXTREMITIES: Shows no leg edema or calf tenderness. There is no cyanosis or clubbing. LABORATORY DATA: White blood cell count is 15.4 and hemoglobin is 7.8. The platelet count is 198. The BUN to creatinine ratio is 84 to 1.21. Other electrolytes are within normal limits. RADIOGRAPHIC DATA: Chest x-ray shows bilateral airspace opacities. IMPRESSION: 1. Acute respiratory failure. 2. Viral pneumonia and COVID-19 infection. 3. Diabetes. 4. Moderate protein-calorie malnutrition. 5. Anemia. PLAN: 1. Continue current ventilator settings and repeat ABG later this afternoon. 2. Continue Versed and fentanyl. 3. The patient to complete antibiotics. 4. Continue enteral feedings. 5. Continue Lovenox. 6. Tracheostomy is pending. 7. Case discussed with nursing, Respiratory, Internal Medicine, administration, General Surgery, and family. Greater than 35 minutes in direct critical care time. MD FRANCES Mae/MIKE /[id number]
--- NOTE | 2020-06-28 11:04 | Progress Note ---
DATE: 06/28/2020 Cardiology Progress Note SUBJECTIVE: Mr. Bob remains intubated and sedated, today in prone position. OBJECTIVE: VITAL SIGNS: Temperature 97.9, heart rate 75, blood pressure 124/46, respiratory rate 22, and O2 saturation 99%. GENERAL: Intubated and sedated, in prone position. NECK: Supple. CHEST: With rales and decreased breath sounds. CARDIOVASCULAR: Regular rate and rhythm. Normal S1 and S2. ABDOMEN: Soft. Bowel sounds positive. EXTREMITIES: 1+ edema. Normothermic. CARDIOVASCULAR MEDICATIONS: Reviewed. Amiodarone 200 mg b.i.d. and Lovenox 60 mg q.12 hours. STUDIES: Reviewed. Sodium 136, potassium 5.2, chloride 102, bicarbonate 22, BUN 84, creatinine 1.2, and glucose 135. White blood cells 15, hemoglobin 7.9, and platelets 198. PT 14.6, PTT 44.7, and INR 1. AST 26, ALT 17, and alkaline phosphatase 95. ASSESSMENT AND PLAN: A 65-year-old man with community-acquired pneumonia, anemia, acute respiratory failure, COVID-19 infection, paroxysmal atrial fibrillation, [id number] diastolic heart failure, history of hypertension, and anemia. RECOMMEND: Continue current cardiovascular medications. Blood pressure remains at goal. Monitor H and H. MD CHRISTINE Bal/MIKE /[id number]
[2020-06-28 15:19] LABS: ABG PH 7.21 (7.35-7.45)
[2020-06-28 15:20] LABS: ABG HCO3 27 mmol/L (22-26); ABG PCO2 66 mmHg (35-45); ABG PO2 85 mmHg (80-105); ABG TCO2 29
--- NOTE | 2020-06-28 15:46 | Progress Note ---
DATE: 06/28/2020 CONSULTANTS: 1. Dr. Quigley, cabinet and trim installer. 2. Dr. Robertson, ID. 3. Dr. Neumann, Cardiology. 4. Dr. Archer, Renal. SUBJECTIVE: The patient is in prone position. Remains intubated and sedated. No events noted overnight. PHYSICAL EXAMINATION: VITAL SIGNS: Temperature 97.1, pulse is 70, respirations 38, blood pressure 116/42, and pulse ox is 95% on the vent. GENERAL: Sedated, in prone position, intubated. CARDIOVASCULAR: Regular rate and rhythm. LUNGS: Decreased breath sounds. ABDOMEN: Soft. NEUROLOGIC: Sedated. MUSCULOSKELETAL: Generalized edema greater in the upper extremities. SKIN: Dry with multiple pressure ulcers. PSYCH: Unable to evaluate. LABORATORY DATA: WBC 15.39, hemoglobin 7.9, hematocrit 27.3, and platelets 198. Sodium 136, potassium 5.2, CO2 of 22, BUN 84, creatinine 1.21, estimated GFR is 60. AST 26, ALT 17. IMPRESSION: 1. Acute respiratory failure due to COVID-19 pneumonia. Remains intubated and sedated, in prone position. Vent management per cabinet and trim installer. Antibiotics per Infectious Disease. 2. Leukocytosis. WBC is 15.39. Continue Merrem per ID. 3. Chronic anemia. Hemoglobin is 7.9. We will continue to monitor closely. 4. Hypertension. Continue hydrochlorothiazide and hydralazine as needed. 5. Generalized edema, greater in the upper extremities. Doppler negative for deep venous thrombosis. Diuretics and ultrafiltration per Renal. 6. Atrial fibrillation. Sinus rhythm. Continue amiodarone per Cardiology. 7. Deep vein thrombosis prophylaxis. Continue Lovenox. PLAN: To continue IV antibiotics and ultrafiltration per Renal. ABGs noted this morning. Dictated by MARAH Castro Alicja Rodriguez MD MY/MODL /[id number]
--- NOTE | 2020-06-28 19:02 | Progress Note ---
DATE: SUBJECTIVE: Mr. Bob remains in the intensive care unit. The patient in the prone position, on ventilator. OBJECTIVE: HEENT: Not icteric. NECK: Supple. CHEST: Few rhonchi. HEART: S1 and S2. ABDOMEN: Soft. Bowel sounds present. EXTREMITIES: No edema. SKIN: No rash. IMPRESSION: Respiratory failure, COVID-19, and diabetes mellitus, off antibiotic. Finish treatment. Continue supportive care. Continue to wean as tolerated. MD JOSE Garay/MODL /[id number]
--- NOTE | 2020-06-28 19:23 | Progress Note ---
DATE: 06/28/2020 Renal Progress Note SUBJECTIVE: Events over the past 24 hours have been noted. The patient remains on the vent. The patient is in the prone position. PHYSICAL EXAMINATION: VITAL SIGNS: Blood pressure is 115/41, respiratory rate 38, pulse 73, intake and output for the past 24 hours, intake has been 12/34, output 175, but I do not know the accuracy of this. The patient in the prone position on the vent. HEENT: The patient has facial edema, facial plethora. CARDIOVASCULAR: Regular rhythm. LUNGS: Decreased breath sounds. Crackles with high frequency bilaterally. ABDOMEN: Decreased bowel sounds. EXTREMITIES: The patient has more edema of the arms than the legs. LABORATORY RESULTS: Sodium 136, potassium 5.2, chloride 102, bicarbonate 22, BUN and creatinine 84 and 1.2 respectively. IMPRESSION: 1. COVID pneumonia. 2. Anasarca. 3. Fluid overload. 4. Azotemia. 5. Borderline hyperkalemia. PLAN: The patient's BUN and creatinine are starting to go up a little bit. He did not get any ultrafiltrating dialysis yesterday. I will plan to do dialysis today. Initially, I was planning on doing just ultrafiltration, however, his BUN is going up and he is becoming borderline hyperkalemia, I will go ahead and do dialysis today with 2 potassium bath, 2.5 calcium and will dialyze for three and a half hours, will try to ultrafilter 3 L. Ather MD LAWRENCE Singh/MIKE /[id number]
--- NOTE | 2020-06-28 19:27 | Consultation ---
DATE OF CONSULTATION: 06/28/2020 CHIEF COMPLAINT: COVID-19 viral pneumonia. HISTORY OF PRESENT ILLNESS: The patient is a 65-year-old male admitted with history of cough, fevers, shortness of breath, and tested positive for COVID-19 pneumonia. The patient has been on ventilator for more than four weeks and is a candidate for tracheostomy. PAST MEDICAL HISTORY: Positive for diabetes, hypertension, and hyperlipidemia. PAST SURGICAL HISTORY: Unremarkable. ALLERGIES: NO DRUG ALLERGIES. SOCIAL HABITS: No history of smoking or alcohol abuse. REVIEW OF SYSTEMS: Unobtainable. PHYSICAL EXAMINATION: VITAL SIGNS: Stable. He is afebrile. The patient is sedated and intubated. HEENT: Anicteric. Lungs: Bilateral rhonchi breath sounds. HEART: Regular rate and rhythm. ABDOMEN: Soft. Extremities: Mild ankle edema. LABORATORY DATA: White cell count of 15.3, hemoglobin of 8, platelet count of 198,000. Creatinine 1.2, albumin of 2.9. Chest x-ray, bilateral alveolar infiltrates. ASSESSMENT: COVID-19 viral pneumonia. PLAN: Placement of tracheostomy tube under anesthesia. Attendant risks discussed with family. Dennis Ireland MD DNSteven/MODL /[id number]
[2020-06-29] VITALS (28 sets, daily range): BP systolic 75–130; BP diastolic 30–44
[2020-06-29] MEDS: FENTANYL 2000MCG/NS 250 250 ML IV PRN (04:49)
[2020-06-29 05:10] LABS: BASOPHILS % 0.3 % (0.0-1.0); EOSINOPHILS # (AUTO) 0.4 (0.0-0.4); EOSINOPHILS % 2.3 % (0.0-6.0); HEMATOCRIT 26.7 % (38.2-49.6); HEMOGLOBIN 7.8 g/dL (14.0-18.0); LYMPHOCYTES # (AUTO) 1.4 (1.0-3.2); LYMPHOCYTES % 8.8 % (18.0-39.1); MEAN CORPUSCULAR HEMOGLOBIN 28.8 pg (28-32); MEAN CORPUSCULAR HGB CONC 29.2 g/dL (31-35); MEAN CORPUSCULAR VOLUME 98.5 fL (81-99); MONOCYTES # (AUTO) 1.1 (0.2-0.8); MONOCYTES % 6.6 % (4.4-11.3); NEUTROPHILS # (AUTO) 12.6 (2.1-6.9); PLATELET COUNT 208 x10e3/uL (140-360); RED BLOOD COUNT 2.71 x10e6/uL (4.3-5.7); RED CELL DISTRIBUTION WIDTH 18.3 % (11.7-14.4)
[2020-06-29 05:32] LABS: ALANINE AMINOTRANSFERASE 16 IU/L (0-55); ALBUMIN 2.9 g/dL (3.5-5.0); ALBUMIN/GLOBULIN RATIO 0.7 (0.8-2.0); ALKALINE PHOSPHATASE 97 IU/L (40-150); BLOOD UREA NITROGEN 66 mg/dL (7-26); BUN/CREATININE RATIO 58 (6-25); CALCIUM 8.3 mg/dL (8.4-10.2); CARBON DIOXIDE 23 mmol/L (22-29); CHLORIDE 98 mmol/L (98-107); CREATININE, SERUM 1.14 mg/dL (0.72-1.25); EST GLOMERULAR FILTRATION RATE > 60 ML/MIN (60-); GLUCOSE 132 mg/dL (74-118); SODIUM 134 mmol/L (136-145)
[2020-06-29] MEDS ORDERED: ROCURONIUM BROMIDE 250 MG in SODIUM CHLORIDE 0.9% 250ML 225 ML IV SCH (07:30)
[2020-06-29] MEDS: AMIODARONE HCL 200 MG TAB PO SCH ×2 (08:28→17:11)
[2020-06-29] MEDS: ROCURONIUM BROMIDE 1,250 MG in SODIUM CHLORIDE 0.9% 250ML 125 ML IV SCH (10:00)
--- NOTE | 2020-06-29 10:00 | Progress Note ---
DATE: SUBJECTIVE: The patient remains in prone position. They are planning to turn him back to the supine position. He is currently on a PRVC mode of ventilation with pressure control. His FiO2 is set at 65%. His PEEP is set at 6 and his pressure above PEEP is 32. His rate is set at 38. PHYSICAL EXAMINATION: VITAL SIGNS: Blood pressure is 103/40, pulse is 76, and saturation is 98%. HEENT: Shows no facial swelling or erythema. LYMPHATIC: Shows no submandibular, cervical, or supraclavicular adenopathy. CARDIAC: Reveals regular rate and rhythm with normal S1 and S2. LUNGS: Auscultation of lungs reveals rhonchorous breath sounds bilaterally. There is no wheezing. ABDOMEN: Soft and nontender. There is no rebound or guarding. EXTREMITIES: Show no leg edema or calf tenderness. There is no cyanosis or clubbing. SKIN: Shows no rashes. NEUROLOGICAL: Shows no focal abnormalities. LABORATORY DATA: White blood cell count is 15.9, hemoglobin is 7.8, and platelet count is 208. BUN to creatinine ratio is 66 to 1.14. The other electrolytes are within normal limits. Albumin is 2.9. RADIOGRAPHIC DATA: Chest x-ray shows bilateral infiltrates. IMPRESSION: 1. Acute respiratory failure. 2. Viral pneumonia and coronavirus disease 2019 infection. 3. Diabetes. 4. Moderate protein-calorie malnutrition. 5. Acute kidney injury. 6. Anasarca. 7. Anemia. PLAN: 1. The patient's minute ventilation has been decreased. We will repeat an ABG later today. 2. The patient has been restarted on rocuronium. 3. Continue Versed and fentanyl. 4. Complete antibiotics. 5. Continue enteral feedings. 6. Lovenox is on hold for pending tracheostomy. Greater than 35 minutes in direct critical care time. Manuel Quigley MD [facility]/MODL /[id number]
[2020-06-29] MEDS ORDERED: SODIUM BICARBONATE 8.4% SYRING 50 ML ONE (10:34)
--- NOTE | 2020-06-29 10:55 | Progress Note ---
DATE: 06/29/2020 Cardiology Progress Note SUBJECTIVE: Intubated, sedated. Prone position. OBJECTIVE: VITAL SIGNS: Temperature 98.3, heart rate 76, blood pressure 103/38, respiratory rate 38, O2 saturation 98%. GENERAL: Intubated, sedated, prone position. CHEST: With rales. Decreased breath sounds. CARDIOVASCULAR: Regular rate and rhythm. Normal S1, S2. ABDOMEN: Soft. EXTREMITIES: With 1+ edema. Normothermic. CARDIOVASCULAR MEDICATION: Reviewed. Amiodarone 200 mg b.i.d. LABORATORY DATA: Sodium 134, potassium 5, chloride 98, bicarbonate 23, BUN 66, creatinine 1.1, glucose 132. White blood cells 15.9, hemoglobin 7.8, platelets 208. INR 1.08. PT 14.6, PTT 44.7. AST 24, ALT 16, alkaline phosphatase 97. ASSESSMENT/PLAN: A 65-year-old man presents with COVID-19 infection, community- acquired pneumonia, acute respiratory failure, anemia, paroxysmal atrial fibrillation, hypertension, acute diastolic heart failure. RECOMMEND: Continue current cardiovascular medications. Monitor H and H. Lovenox currently on hold, pending possible trach. Advised once this is completed to resume Lovenox therapy and monitor. MD CHRISTINE Bal/MIKE /[id number] MTDD
[2020-06-29 11:37] LABS: ABG HCO3 31 mmol/L (22-26); ABG PCO2 102 mmHg (35-45); ABG PH 7.09 (7.35-7.45); ABG PO2 101 mmHg (80-105); ABG TCO2 34
[2020-06-29 11:39] LABS: ABG PCO2 109 mmHg (35-45); ABG PH 7.08 (7.35-7.45); ABG PO2 94 mmHg (80-105)
[2020-06-29 11:40] LABS: ABG HCO3 33 mmol/L (22-26); ABG TCO2 36
[2020-06-29] MEDS ORDERED: VANCOMYCIN 1GM/NS 250 ML 250 ML IV ONE (11:50)
[2020-06-29] MEDS ORDERED: NOREPINEPHRINE 8 MG/D5W 250 ML 250 ML ONE (11:51)
[2020-06-29] MEDS: NOREPINEPHRINE 8 MG/D5W 250 ML 250 ML IV SCH ×2 (11:52→22:45)
--- NOTE | 2020-06-29 12:00 | Diagnostic Imaging Report ---
EXAMINATION: CHEST SINGLE (PORTABLE) INDICATION: Respiratory failure COMPARISON: Chest radiograph 06/26/2020 FINDINGS: LINES/TUBES:Support lines and tubes unchanged LUNGS:The lungs are moderately inflated. Unchanged bilateral diffuse airspace and interstitial opacities. PLEURA:No pleural effusion or pneumothorax. MEDIASTINUM:The cardiomediastinal silhouette appears unchanged in size and shape. BONES/SOFT TISSUES:No acute osseous injury. ABDOMEN:No free air under the diaphragm. IMPRESSION: No significant interval change. Signed by: Nicki Durham MD on 06/29/2020 11:57 AM
[2020-06-29 12:05] LABS: BILIRUBIN,URINE SMALL (NEGATIVE); CLARITY,URINE SL CLOUDY (CLEAR); COLOR,URINE YELLOW (YELLOW); KETONES,URINE TRACE (NEGATIVE); LEUKOCYTE ESTERASE ,URINE NEGATIVE (NEGATIVE); NITRITE,URINE NEGATIVE (NEGATIVE); PROTEIN,URINE DIPSTICK 2+ (NEGATIVE); URINE UROBILINOGEN 1 mg/dL (0.2 - 1)
[2020-06-29 12:09] LABS: AMORPHOUS SEDIMENT,URINE MANY (FEW); BACTERIA,URINE FEW /HPF
[2020-06-29] MEDS ORDERED: SODIUM BICARBONATE 8.4% 100 ML in DEXTROSE 5% 1,000 ML IV ONE (12:15)
[2020-06-29] MEDS: MEROPENEM 1GM 100 ML IV SCH (12:54)
--- NOTE | 2020-06-29 13:56 | NUR ---
WOUND CARE CONSULT FOR 65 YO MALE HX OF PNEAU, HYPOXIA HERMAN 9 ON STRICT PUP STATUS AND INTERVENTIONS AND ALTERNATING PRESSURE MATTRESS LABS: WBC-15.94 HGB_7.8 GLUCOSE-132 SKIN ASSESSMENT COMPLETE PATIENT PRESENTS WITH BILATERAL DARK PURPLE CHEEK DTI LEFT CHEEK MEASURING 3CM X3.5CM ,RIGHT CHEEK 5CMX 3.8CM, BILATERAL EAR DTI DARK PURPLE RIGHT EAR MEASURES 4CM X 3CM ,LEFT EAR [id number] SACRAL UNSTAGEABLE ESCHAR 6CM X 2.5 CM 80 % ESCHAR 20 % SLOUGH RECOMMENDATIONS: NURSING TO CONTINUE TO MAINTAIN STRICT PUP STATUS AND INTERVENTIONS AND ALTERNATING PRESSURE MATTRESS NURSING TO CONTINUE TO ASSIST PATIENT NEEDED WITH MEALS AND NUTRITIONAL SUPPLEMENTS TO ENSURE PROPER REQUIREMENTS FOR HEALING NURSING TO CONTINUE TO OFFLOAD FEET AND HEELS NEEDED WITH PILLOW SUSPENSION WHEN IN BED NURSING TO CLEAN BILATERAL CHEEK DTI AND BILATERAL EAR DTI WITH NORMAL SALINE DAILY AND APPLY BETADINE DAMPENED SANJUANA AND SMALL ALLEVYN FOAM DRESSING CUT IN HALF TO DISTRIBUTE PRESSURE AND PREVENT SHEER NURSING TO CLEAN SACRAL UNSTAGEABLE ULCERATION WITH NORMAL SALINE DAILY APPLY SANTYL OINTMENT TO ESCHAR AND SLOUGH COVER WITH 4X4 AND SECURE WITH ALLEVYN FOAM DRESSING Addendum: 06/29/20 at 1406 by Fabricio Brown RN Amended: Links added.
--- NOTE | 2020-06-29 16:22 | Progress Note ---
DATE: 06/29/2020 CONSULTANTS: 1. Dr. Quigley, certified tower climber. 2. Dr. Robertson, ID. 3. Dr. Neumann, Cardiology. 4. Dr. Singh, Renal. SUBJECTIVE: The patient in supine position, intubated and sedated, no events were reported. PHYSICAL EXAMINATION: VITAL SIGNS: Temperature 97.3, pulse is 74, respirations 34, blood pressure 112/37, pulse ox 97% on the vent. GENERAL: Sedated in supine position, intubated. CARDIOVASCULAR: Regular rate and rhythm. LUNGS: Decreased breath sounds. ABDOMEN: Soft. NEUROLOGIC: Sedated. MUSCULOSKELETAL: Generalized edema greater in upper extremities and face. SKIN: Dry with multiple pressure ulcers. LABORATORY DATA: WBC 15.94, hemoglobin 7.8, hematocrit 26.7, platelet 208. Sodium 134, potassium 5.0, BUN 66, creatinine 1.14, estimated GFR is greater than 60. AST 24, ALT 16. IMPRESSION: 1. Acute respiratory failure due to COVID-19 pneumonia. Remains intubated, sedated in supine position. Vent management per certified tower climber. Continue Merrem per ID. 2. Leukocytosis. Stable WBCs. Continue Merrem per ID. 3. Chronic anemia. Hemoglobin is stable. We will continue to monitor closely. 4. Hypertension. Continue hydrochlorothiazide and hydralazine as needed. 5. Generalized edema/anasarca. Diuretics and ultrafiltration/dialysis per Renal. 6. Atrial fibrillation. Sinus rhythm. Continue amiodarone p.o. per Cardiology. 7. Deep vein thrombosis prophylaxis. Continue Lovenox. PLAN: Continue IV antibiotics and ultrafiltration/dialysis per Renal. Dictated by MARAH Castro Alicja Rodriguez MD MY/MODL /[id number]
--- NOTE | 2020-06-29 16:54 | NUR ---
Nutrition Intervention Note RD Recommendation(s) for Physician: -Continue Pivot 1.5 at goal rate of 45 ml/hr (to provide 1620 kcal and 101 gm protein) -Pt may be fed when in prone position at goal rate in reverse Trendelenburg with HOB at 10-25 degrees. -Fluid/water management per MD Plan of Care: RD following, monitoring for tolerance and adequacy, tube feed recommendation Nutrition reason for involvement: follow up RD Assessment 06/29: Follow up. Chart reviewed. Pt remains intubated/sedated and is in the prone position per chart. Pt is tolerating tube feeding at 45 mL/hr. Current recommendations remain appropriate. Will continue to monitor. 06/26: Follow up. Chart reviewed. Pt remains intubated and sedated. Trach placement is being discussed per chart. Pt is tolerating tube feeding of Pivot at goal of 45 mL/hr which meets nutritional needs. Will continue to monitor. 06/21: Follow up. Chart reviewed. Pt had been receiving tube feeding at goal rate of 45 mL/hr per RN which meets nutritional needs. Will continue to monitor. 06/16: Follow up. Chart reviewed. Pt remains intubated and is in the supine position. Pts tube feeding is at goal rate of 45 mL/h which is meeting needs. Will continue to monitor 06/13: Follow up. Pt remains intubated and paralyzed requiring intermittent proning. Pt currently on Levophed at 8 mcg/min. TF continues to meet >75% of estimated needs. Chart reviewed. Will continue to monitor. 06/09: Follow up. Pt remains intubated and sedated. It is documented that pts tube feed is at 35 mL/hr. It is noted that pt has been in the prone position overnight. Will continue to monitor 06/06: Follow up. Pt remains intubated, sedated, and paralyzed. No pressor support. Pt continues on TF of Vital HP, infusing at 20 ml/hr at time of visit- RN unavailable to discuss rate. Pt not meeting needs with current TF > [address] Quigley regarding TF and goal rate, MD amenable to continuing goal rate while in prone position as it is not contraindicated. RD to modify TF order per MD. Chart reviewed. Will continue to monitor. 06/02: Follow up. Chart reviewed. Pt remains intubated and sedated. Pt is receiving Vital HP @ 30 mL/hr at this time - not meeting nutritional needs. Current recommendations remain appropriate. Will continue to monitor. 05/29: Follow up. Chart reviewed. Pt remains intubated and sedated. MD note indicates that pt remains in the prone position. Pt is receiving Vital HP @ 20 mL/hr at this time. Current recommendations remain appropriate. Will continue to monitor. 05/24: Follow up. Pt remains intubated and sedated, requiring to be proned- no paralytic currently. Vital HP infusing at goal rate, providing >75% of estimated needs. Chart reviewed. Current TF rec's remain appropriate. Will continue to monitor. 05/22: Follow up. Pt remains intubated, paralyzed, and sedated. TF documented as Glucerna 1.2 at 30 ml/hr currently, not meeting needs. Pt requiring proning at times. Pt with chest tubes to output. Current TF rec's remain appropriate. Chart reviewed. Will continue to monitor. 05/17: Follow up. Chart reviewed. Pt remains intubated. RN reports that pts tube feeding is at 10 mL/hr at this time and pt is in the prone position. Current recommendations remain appropriate. Will continue to monitor. 05/12: Pt was intubated yesterday and tube feeding was ordered. It is recorded that pt consumed 25% of breakfast on 05/10 and was previously consuming 50-100% of meals. Recommendations provided. Will continue to monitor. 05/09: 65 YOM admitted for hypoxia and pneumonia due to COVID-19. Pt assessed today for LOS. Attempted to call pt's room x 2, no answer- unable to obtain hx at this time. No wt loss or poor intake indicated at admit per MD notes. Pt with 50-100% intake since admit. Pt currently on Vapotherm per current respiratory status. Labs and meds reviewed. LBM 05/08, skin intact. Chart reviewed. Will continue to monitor. Principal Problems/Diagnoses: hypoxia, pneumonia due to COVID-19 PMH: HTN, HLD GI: last recorded BM 06/27, soft/large/round abdomen Skin: stage 2 pressure ulcer/suspected DTI left ear, stage 2 pressure ulcer bilateral cheek, stage 2 pressure ulcer lower urethral meatus Labs: 06/29: Na 134, K 5.0, BUN 66, Cr 1.14, Glu 132, Ca 8.3 9/7: Na 139, K 4.3, BUN 76, Cr 0.98, Glu 119, Ca 8.3 06/21: Na 154, K 3.5, BUN 65, Cr 0.66, Glu 144 06/16: Na 146, K 4.1, BUN 38, Cr 0.69, Glu 138, AST 35 06/13: Na 142, K 3.1, BUN 29, Cr 0.62, Gluc 123, Ca 8.8 06/09: Na 148, K 4.5, BUN 32, Cr 0.56, Glu 160 06/06: Na 147, K 3.3, BUN 22, Cr 0.62, Gluc 135, Ca 9 06/02: Na 140, K 3.5, BUN 24, Cr 0.66, Glu 116 05/29: Na 141, K 3.9, BUN 24, Cr 0.66, Glu 87, Ca 9.5 05/24: Na 147, K 3, BUN 27, Cr 0.61, Gluc 100, POC Gluc 123-126, Ca 6.3, Mg 1.5 05/22: Na 143, K 4.5, BUN 28, Cr 0.77, Gluc 122, POC Gluc 122-136 (05/17/20) Na 141, K 4.2, BUN 18, Cr 0.61, Glu 87, Ca 8.7 (05/12/20) Na 141, K 5.4, BUN 33, Cr 0.76, Glu 118, Ca 7.9 Meds: antibiotic, norepinephrine, rocuronium, amiodarone, fentanyl, mannitol Ht: 66 inches Wt: 200 lbs (06/29) 211 lbs (06/21) 213 lbs (06/16) 215 lbs (06/13) 211 lbs (06/08) 212 lbs (06/06) 221 lbs (06/02) 246 lbs (05/28) 218 lbs (05/09) BMI: 35.2 using weight of 218 lbs IBW: 142 lbs Malnutrition Evaluation (06/29/20) The patient does not meet criteria for a specified degree of malnutrition at this time. Energy intake: pt is meeting kcal and protein needs with current tube feed rate Weight loss: does not meet criteria- wt fluctuations since admit noted with no significant change from admit wt, likely fluid related Fat loss: none- ample skinfold thickness of upper arms, observed outside of pt room Muscle loss: none- shoulder round, observed outside of pt room Supporting Evidence: Fluid accumulation: +1 edema in extremities Functional Status: unable to evaluate- pt intubated and sedated Nutrition Prescription (Diet Order): Pivot 1.5 @ goal of 45 mL/hr- infusing at goal rate per chart (1620 kcal and 101 gm protein) Estimated Nutritional Needs: 6408-6491 calories/day (22-25 kcal/kg IBW) 97-129 g protein/day (1.5-2 g pro/kg IBW) Diet Adequacy: Meeting calorie needs, meeting protein needs Tolerance: tolerating TF Diet Education Needs Assessment: Diet education is not indicated, pt is intubated Nutrition Care Level: moderate Nutrition Diagnosis: Inadequate oral intake related to acute respiratory failure/mechanical ventilation as evidenced by requiring enteral nutrition. Goal: Patient will meet 75-100% of estimated needs by follow up Progress: goal met Interventions: - Composition, Rate, Route Monitoring/Evaluation: -Total energy intake, Total protein intake, Formula/Solution, Weight change Signed: Ruth Kern, RD, LD
--- NOTE | 2020-06-29 17:01 | Progress Note ---
DATE: SUBJECTIVE: Mr. Bob remains in intensive care unit. The patient is intubated. PHYSICAL EXAMINATION: VITAL SIGNS: Stable. His FiO2 is 65. PEEP is 6. HEENT: Normocephalic. NECK: Supple. CHEST: Crackles. HEART: S1, S2. ABDOMEN: Soft. Bowel sounds present. EXTREMITIES: No edema. SKIN: No rash. LABORATORY DATA: Reviewed. White count 16.9. IMPRESSION: Respiratory failure, COVID-19, aspiration pneumonia. He is currently on meropenem. Continue with diuresis. Continue supportive care. He is on seven days of antibiotic. We will follow. MD JOSE Garay/MODL /[id number]
[2020-06-29 17:27] LABS: ABG HCO3 28 mmol/L (22-26); ABG PCO2 75 mmHg (35-45); ABG PO2 67 mmHg (80-105); ABG TCO2 31
[2020-06-29] MEDS: MIDAZOLAM HCL 5MG/ML 10ML VIAL 100 ML IV PRN (19:20)
--- NOTE | 2020-06-29 23:40 | NUR ---
Dr. Quigley notified of persistent hypotension and increase in Levophed dependence. New order to repeat ABG. Results called to Dr. Quigley. Order to titrate Fi02 as tolerated. Notified RT.
[2020-06-30] VITALS (27 sets, daily range): BP systolic 90–147; BP diastolic 35–56
[2020-06-30 00:38] LABS: ABG HCO3 30 mmol/L (22-26); ABG PCO2 72 mmHg (35-45); ABG PH 7.22 (7.35-7.45); ABG PO2 106 mmHg (80-105); ABG TCO2 32
[2020-06-30] MEDS: MEROPENEM 1GM 100 ML IV SCH ×2 (01:52→14:44)
[2020-06-30] MEDS: FENTANYL 2000MCG/NS 250 250 ML IV PRN ×2 (04:00→15:34)
[2020-06-30 04:11] LABS: BASOPHILS # (AUTO) 0.1 (0.0-0.1); BASOPHILS % 0.3 % (0.0-1.0); EOSINOPHILS # (AUTO) 0.4 (0.0-0.4); EOSINOPHILS % 2.3 % (0.0-6.0); HEMATOCRIT 24.8 % (38.2-49.6); HEMOGLOBIN 7.2 g/dL (14.0-18.0); LYMPHOCYTES % 11.1 % (18.0-39.1); MEAN CORPUSCULAR HEMOGLOBIN 28.2 pg (28-32); MEAN CORPUSCULAR VOLUME 97.3 fL (81-99); MONOCYTES # (AUTO) 1.4 (0.2-0.8); MONOCYTES % 7.9 % (4.4-11.3); NEUTROPHILS # (AUTO) 13.3 (2.1-6.9); NEUTROPHILS % 74.3 % (38.7-80.0); PLATELET COUNT 241 x10e3/uL (140-360); RED BLOOD COUNT 2.55 x10e6/uL (4.3-5.7); RED CELL DISTRIBUTION WIDTH 18.1 % (11.7-14.4)
[2020-06-30 04:35] LABS: ALBUMIN 2.8 g/dL (3.5-5.0); ALBUMIN/GLOBULIN RATIO 0.7 (0.8-2.0); ANION GAP 19.5 mmol/L (8-16); CREATININE, SERUM 1.5 mg/dL (0.72-1.25); POTASSIUM 5.5 mmol/L (3.5-5.1)
[2020-06-30] MEDS: NOREPINEPHRINE 8 MG/D5W 250 ML 250 ML IV SCH (05:33)
[2020-06-30] MEDS: MIDAZOLAM HCL 5MG/ML 10ML VIAL 100 ML IV PRN ×2 (06:24→15:35)
[2020-06-30] MEDS: COLLAGENASE 5 GM TUBE TP SCH (08:06)
[2020-06-30] MEDS: AMIODARONE HCL 200 MG TAB PO SCH ×2 (08:06→16:44)
--- NOTE | 2020-06-30 09:28 | Diagnostic Imaging Report ---
EXAMINATION: CHEST SINGLE (PORTABLE) INDICATION: Respiratory failure COMPARISON: Chest radiograph 06/29/2020 FINDINGS: LINES/TUBES:Support lines and tubes unchanged. EKG leads overlie the chest. LUNGS:Unchanged bilateral airspace and interstitial opacities. PLEURA:No pleural effusion or pneumothorax. MEDIASTINUM:The cardiomediastinal silhouette appears normal in size and shape. BONES/SOFT TISSUES:No acute osseous injury. ABDOMEN:No free air under the diaphragm. IMPRESSION: No significant interval change. Signed by: Nicki Durham MD on 06/30/2020 9:24 AM
[2020-06-30 11:55] LABS: ABG PCO2 67 mmHg (35-45); ABG PH 7.23 (7.35-7.45)
[2020-06-30 11:56] LABS: ABG HCO3 28 mmol/L (22-26); ABG PO2 80 mmHg (80-105); ABG TCO2 30
[2020-06-30] MEDS ORDERED: ROCURONIUM BROMIDE 10 MG/ML 5ML VIAL IV ONE (12:52)
[2020-06-30] MEDS ORDERED: MIDAZOLAM HCL 2 MG/2 ML VIAL ONE (13:30)
--- NOTE | 2020-06-30 13:36 | Progress Note ---
DATE: SUBJECTIVE: The patient is now in a supine position. He is awaiting possible tracheostomy today. He had some problems with respiratory acidosis last night. His minute ventilation was increased and he required a bicarb drip temporarily. The bicarb drip is now off. He is on Levophed, but we are decreasing the dosage. PHYSICAL EXAMINATION: VITAL SIGNS: The blood pressure is 141/50 and saturation is now 93% on 75% with 5 of PEEP. The pressure control is set at 36. Respiratory rate is set at 36 as well. Blood pressure is 141/15, on Levophed at 14 mcg. The patient is currently on a PRVC mode of ventilation at rate of 36. There is pressure control with a pressure above PEEP of 36 and a PEEP of 5. The FiO2 is set at 75%. HEENT: Shows no facial swelling or erythema. There is an oral endotracheal tube. LYMPHATIC: Shows no submandibular, cervical, or supraclavicular adenopathy. CARDIAC: Reveals regular rate and rhythm with normal S1 and S2. LUNGS: Auscultation of lungs reveals rhonchorous breath sounds bilaterally. There is no wheezing. ABDOMEN: Soft and nontender. There is no rebound or guarding. EXTREMITIES: Show no leg edema or calf tenderness. There is no cyanosis or clubbing. SKIN: Shows no rashes. NEUROLOGICAL: Shows the patient to be sedated. The patient is on rocuronium as well as Versed and fentanyl. LABORATORY DATA: White blood cell count is 17.8 and the hemoglobin is 7.2. The platelet count is 241. The BUN to creatinine ratio is 90 to 1.5. The other electrolytes are within normal limits. The albumin is 2.8. RADIOGRAPHIC DATA: Bilateral pulmonary infiltrates. IMPRESSION: 1. Acute respiratory failure. 2. Viral pneumonia and COVID-19 infection. 3. Moderate protein-calorie malnutrition. 4. Diabetes. 5. Acute renal failure. 6. Anasarca. 7. Anemia. PLAN: 1. Continue to wean Levophed. 2. Minute ventilation has been increased. The patient is scheduled for repeat ABG in an hour and a half. 3. Complete current antibiotics and await culture results. 4. Continue Versed and fentanyl. 5. Continue rocuronium. 6. Continue enteral feedings. 7. Tracheostomy is scheduled for today. Greater than 35 minutes in direct critical care time. MD FRANCES Mae/MIKE /[id number]
[2020-06-30] MEDS ORDERED: BUPIVACAINE 0.5%/EPI 30 ML SDV INJ ONE (16:43)
--- NOTE | 2020-06-30 17:05 | NUR ---
PT TAKEN TO OR ANESTHESIA AND SUPERINTENDENT SANITATION AT BEDSIDE TO TRANSFER PATIENT
--- NOTE | 2020-06-30 17:12 | Progress Note ---
DATE: 06/30/2020 CONSULTANTS: 1. Dr. Quigley, apparel stock checker. 2. Dr. Robertson, ID. 3. Dr. Neumann, Cardiology. 4. Dr. Singh, Renal. 5. Dr. Ireland, Surgery. SUBJECTIVE: The patient is intubated and sedated in supine position, no events noted overnight. Scheduled for tracheostomy and dialysis later today. PHYSICAL EXAMINATION: VITAL SIGNS: Temperature 99.0, pulse is 74, respirations 34, blood pressure 141/51, and pulse ox is 100% on the vent. GENERAL: Sedated and intubated. CARDIOVASCULAR: Regular rate and rhythm. LUNGS: With decreased breath sounds. ABDOMEN: Soft, obese. NEUROLOGIC: Sedated. MUSCULOSKELETAL: Generalized edema greater in upper extremities. SKIN: Dry with multiple pressure ulcers. LABORATORY DATA: WBC 17.85, hemoglobin 7.2, hematocrit 24.8, and platelets 241. Sodium 133, potassium 5.5, BUN 90, creatinine 1.5, estimated GFR 47, glucose 185, calcium 8.0, AST 25, and ALT 17. ABG; pH 7.23, pCO2 of 67, PO2 of 80, and bicarb 28. IMPRESSION: 1. Acute respiratory failure due to coronavirus disease-19 pneumonia. Currently, he is sedated and intubated. Pending for a tracheostomy placement per Dr. Ireland today. 2. Leukocytosis. WBC 17 today. Continue Merrem per Infectious Disease. 3. Chronic anemia. Hemoglobin 7.2. Continue to monitor closely. 4. Acute kidney injury. Scheduled for dialysis with ultrafiltration today. 5. Hypertension. Continue hydrochlorothiazide and hydralazine as needed. 6. Generalized edema, anasarca. Diuretic and dialysis with ultrafiltration per Renal today. 7. Atrial fibrillation. Now sinus rhythm. Continue amiodarone p.o. per Cardiology. 8. Deep vein thrombosis prophylaxis. Lovenox, stop for tracheostomy. PLAN: To continue IV antibiotics and pending tracheostomy and dialysis today. Dictated by MARAH Castro Alicja Rodriguez MD MY/MODL /[id number]
--- NOTE | 2020-06-30 17:15 | NUR ---
1655 PATIENT TRANSFERRED TO OR ON 100% O2 VIA AMBU BAG WITH 10 CM H2OI WITHOUT PROBLEMS, SPO2 REMAIN 100% 1705 PATIENT TRANSFERRED TO ICU FROM OR ON 100% O2 VIA AMBU BAG WITH 10 CM H2OI WITHOUT PROBLEMS, SPO2 REMAIN 98-100% PLACED PATIENT BACK ON VENTILATOR WITH PC 36, RR 36, PEEP 5, FIO2 75%
[2020-06-30 17:23] LABS: ABG HCO3 27 mmol/L (22-26); ABG PCO2 57 mmHg (35-45); ABG PH 7.29 (7.35-7.45); ABG PO2 68 mmHg (80-105); ABG TCO2 29
--- NOTE | 2020-06-30 18:37 | Progress Note ---
DATE: SUBJECTIVE: Mr. Bob remains in the intensive care unit, intubated, sedated. He is going to have tracheostomy today. REVIEW OF SYSTEMS: There is nothing new. PHYSICAL EXAMINATION: GENERAL: Intubated and sedated. VITAL SIGNS: Stable, currently afebrile. HEENT: He is not icteric. NECK: Supple. CHEST: Crackles bilateral. HEART: S1, S2. ABDOMEN: Soft. Bowel sounds present. EXTREMITIES: No edema. IMPRESSION: Respiratory failure status post COVID-19, protein-calorie malnutrition, diabetes mellitus, acute kidney injury. His white count is 19.5, hemoglobin 7.2. Sodium 133, potassium of 5.5, creatinine 1.50. Concerned about acute kidney injury. I am going to stop his meropenem. Continue with supportive care. Recheck CBC. Recheck Chem panel. We will follow with you. MD JOSE Garay/MIKE /[id number]
[2020-06-30 19:02] LABS: ABG HCO3 27 mmol/L (22-26); ABG PCO2 62 mmHg (35-45); ABG PH 7.25 (7.35-7.45); ABG PO2 58 mmHg (80-105); ABG TCO2 29
--- NOTE | 2020-06-30 19:08 | Operative Report ---
DATE OF PROCEDURE: 06/30/2020 SURGEON: Dennis Ireland MD PREOPERATIVE DIAGNOSIS: COVID pneumonia with respiratory failure. POSTOPERATIVE DIAGNOSIS: COVID pneumonia with respiratory failure. OPERATIVE PROCEDURE: Tracheostomy. ANESTHESIA: General. INDICATION: A 65-year-old male with history of COVID-19 pneumonia, on ventilator for more than 3 weeks. The patient and family consent for tracheostomy tube placement. Attendant risks discussed. DESCRIPTION OF PROCEDURE: The patient was brought to the OR from ICU and placed in the supine position with the neck extended on shoulder rolls. The neck was hyperextended and prepped with alcohol and draped in sterile fashion. A collar incision was made one fingerbreadth above the suprasternal notch extending through skin and subcutaneous tissue and platysma. Midline strap muscle was . The thyroid isthmus was divided with the Harmonic Scalpel, exposing the anterior trachea. We proceeded to make a transverse tracheotomy incisions in the space between the 2nd and 3rd rings and the lateral aspect of the 3rd ring was also divided with scissors. A slight 8-Burkinan Shiley tracheostomy tube was inserted into the trachea and the balloon inflated. The tube was connected to ventilator registering appropriate tidal volume. The tracheostomy tube was anchored to skin with 2-0 Prolene stitch and tracheal ties. He was then transported back to ICU in guarded condition. BLOOD LOSS: 4 to 5 mL. Dennis Ireland MD D[facility]/MODL /[id number]
--- NOTE | 2020-06-30 19:56 | NUR ---
ABG results reported to Dr. Steven Quiglye, no new orders at this time.
[2020-07-01] VITALS (23 sets, daily range): BP systolic 90–141; BP diastolic 35–53
--- NOTE | 2020-07-01 00:21 | NUR ---
Pt received an additional 12.5 Gm Albumin during HD for BP support. (total=37.5 Gm Albumin administered by HD RN) Current ABP 90/35 (50)
--- NOTE | 2020-07-01 02:14 | Progress Note ---
DATE: 06/30/2020 Cardiology Progress Note SUBJECTIVE: Mr. Bob remained intubated and sedated with plans for tracheostomy later in the evening. OBJECTIVE: VITAL SIGNS reviewed and stable. GENERAL: Intubated and sedated. NECK: Supple. CHEST: With withdrawals and decreased breath sounds. CARDIOVASCULAR: Regular rate and rhythm. Normal S1, S2. No S3 or S4. ABDOMEN: Soft. Bowel sounds positive. EXTREMITIES: 1+ edema. CARDIOVASCULAR MEDICATIONS: Reviewed. 1. Amiodarone 200 mg b.i.d. 2. KCl. 3. Albumin 25 mg p.r.n. STUDIES: Reviewed sodium 133, potassium 5.5, chloride 96, bicarbonate 23, BUN 19, creatinine 1.5, glucose 185. White blood cells 17.8, hemoglobin 7.2, platelets 241. INR 1. AST 25, ALT 17, alkaline phosphatase 99. ASSESSMENT: A 65-year-old man with COVID-19 infection, community-acquired pneumonia, acute respiratory failure, paroxysmal atrial fibrillation, anemia, acute on chronic diastolic heart failure. RECOMMENDATIONS: Continue current cardiovascular medications. Volume optimization per Nephrology. Possible tracheostomy later today. Remains in sinus rhythm. Continue amiodarone at current dose. Upon completion of tracheostomy and hemostasis confirmed, can resume anticoagulation. Mario Harris MD [facility]/MODL /[id number]
[2020-07-01] MEDS: MIDAZOLAM HCL 5MG/ML 10ML VIAL 100 ML IV PRN ×3 (03:26→23:42)
[2020-07-01] MEDS: FENTANYL 2000MCG/NS 250 250 ML IV PRN (04:56)
[2020-07-01 05:18] LABS: BASOPHILS % 0.2 % (0.0-1.0); EOSINOPHILS # (AUTO) 0.4 (0.0-0.4); EOSINOPHILS % 4.2 % (0.0-6.0); LYMPHOCYTES # (AUTO) 1.2 (1.0-3.2); MEAN CORPUSCULAR HEMOGLOBIN 28.3 pg (28-32); MEAN CORPUSCULAR HGB CONC 29.5 g/dL (31-35); MEAN CORPUSCULAR VOLUME 95.9 fL (81-99); MONOCYTES # (AUTO) 0.7 (0.2-0.8); MONOCYTES % 8.3 % (4.4-11.3); NEUTROPHILS # (AUTO) 6.5 (2.1-6.9); NEUTROPHILS % 72.7 % (38.7-80.0); PLATELET COUNT 170 x10e3/uL (140-360); RED BLOOD COUNT 2.19 x10e6/uL (4.3-5.7); RED CELL DISTRIBUTION WIDTH 18.2 % (11.7-14.4)
[2020-07-01 05:35] LABS: HEMOGLOBIN 6.2 g/dL (14.0-18.0)
[2020-07-01 05:36] LABS: ALANINE AMINOTRANSFERASE 13 IU/L (0-55); ALBUMIN/GLOBULIN RATIO 0.9 (0.8-2.0); ALKALINE PHOSPHATASE 71 IU/L (40-150); ANION GAP 18.1 mmol/L (8-16); BLOOD UREA NITROGEN 53 mg/dL (7-26); BUN/CREATININE RATIO 51 (6-25); CARBON DIOXIDE 23 mmol/L (22-29); CHLORIDE 101 mmol/L (98-107); CREATININE, SERUM 1.03 mg/dL (0.72-1.25); EST GLOMERULAR FILTRATION RATE > 60 ML/MIN (60-); GLUCOSE 83 mg/dL (74-118); POTASSIUM 4.1 mmol/L (3.5-5.1); SODIUM 138 mmol/L (136-145)
[2020-07-01] MEDS ORDERED: SODIUM CHLORIDE 0.9% 250ML 250 ML IV ONE (07:45)
--- NOTE | 2020-07-01 07:45 | Diagnostic Imaging Report ---
EXAMINATION: CHEST SINGLE (PORTABLE) INDICATION: Respiratory failure COMPARISON: Multiple prior chest x-rays including most recent on 06/30/2020. FINDINGS: TUBES and LINES: Tracheostomy which terminates approximately 7 cm above the cadence Right PICC which terminates the cavoatrial junction and subdiaphragmatic enteric tube which courses below the [id number]. LUNGS: No interval change in multifocal interstitial and airspace opacities. PLEURA: No pleural effusion or pneumothorax. HEART AND MEDIASTINUM: The cardiomediastinal silhouette is unchanged. BONES AND SOFT TISSUES: No acute osseous lesion. Soft tissues are unchanged. UPPER ABDOMEN: No free air under the diaphragm. IMPRESSION: 1. Support lines and tubes as above. 2. No interval change in multifocal interstitial and airspace opacities. Signed by: Jai Marcial MD on 07/01/2020 7:41 AM
[2020-07-01] MEDS: ROCURONIUM BROMIDE 1,250 MG in SODIUM CHLORIDE 0.9% 250ML 125 ML IV SCH ×2 (08:30→12:51)
[2020-07-01] MEDS: AMIODARONE HCL 200 MG TAB PO SCH ×2 (08:45→17:10)
[2020-07-01] MEDS: ENOXAPARIN 30 MG/0.3 ML SYR SC SCH (08:45)
--- NOTE | 2020-07-01 08:45 | Progress Note ---
DATE: SUBJECTIVE: The patient had tracheostomy yesterday. His oxygenation was slightly worse last night and his FiO2 was increased to 90%. He is awaiting ultrafiltration again today. His Levophed has been weaned off. PHYSICAL EXAMINATION: VITAL SIGNS: The blood pressure is now 90/40. The pulse is 71. Respiratory rate is 36. He is on a pressure control at a rate of 36 with a PEEP of 6 and pressure control of 36. He remains on rocuronium at 0.04 as well as Versed and fentanyl. HEENT: Shows no facial swelling or erythema. The tracheostomy site is in good position. There is no drainage. CARDIAC: Reveals regular rate and rhythm with normal S1 and S2. LUNGS: Auscultation of lungs shows decreased breath sounds at the bases. There is no wheezing. ABDOMEN: Soft and nontender. There is no rebound or guarding. EXTREMITIES: Shows no leg edema or calf tenderness. There is no cyanosis or clubbing. SKIN: Shows no rashes. NEUROLOGIC: Shows the patient to be sedated and paralyzed. LABORATORY DATA: Hemoglobin is 6.2 and white blood cell count is 8.9. The platelet count is 170. The BUN to creatinine ratio is 53 to 1.03. Other electrolytes are within normal limits and the albumin is 3. IMPRESSION: 1. Anemia secondary to chronic blood loss. 2. Acute renal failure. 3. Acute respiratory failure. 4. Viral pneumonia and COVID-19 infection. 5. Moderate protein-calorie malnutrition. 6. Diabetes. PLAN: 1. The patient to receive packed red blood cells today. 2. Restart Levophed. 3. The patient to receive ultrafiltration today. 4. Continue current ventilator settings and repeat ABG later today. 5. Continue rocuronium, Versed and fentanyl. 6. The patient to receive tunneled dialysis catheter on Friday. 7. Continue enteral feedings. Greater than 35 minutes in direct critical care time. Manuel Quigley MD [facility]/MODL /[id number]
[2020-07-01] MEDS: COLLAGENASE 5 GM TUBE TP SCH (08:46)
[2020-07-01 08:55] LABS: ABG HCO3 28 mmol/L (22-26); ABG PCO2 59 mmHg (35-45); ABG PH 7.28 (7.35-7.45); ABG PO2 113 mmHg (80-105)
[2020-07-01 08:56] LABS: ABG TCO2 30
[2020-07-01] MEDS: NOREPINEPHRINE 8 MG/D5W 250 ML 250 ML IV SCH (11:45)
--- NOTE | 2020-07-01 13:21 | Progress Note ---
DATE: 07/01/2020 Renal Progress Note SUBJECTIVE: Events over the past 24 hours have been noted. The patient is status post tracheostomy. He is still on the vent. PHYSICAL EXAMINATION: VITAL SIGNS: Blood pressure 109/56 and pulse 73. GENERAL: The patient is on the vent. He has a trach. CARDIOVASCULAR: Regular rate and rhythm. LUNGS: High pitch with crackles bilaterally. ABDOMEN: Decreased bowel sounds. EXTREMITIES: The patient has edema of the arms and also the face. LABORATORY RESULTS: Hemoglobin is 6.2 and hematocrit is 21. Sodium 138, potassium 4.1, chloride 101, bicarbonate 23, BUN and creatinine 53 and 1.03 respectively. Calcium is 8.0. IMPRESSION/PLAN: 1. Acute kidney injury. 2. COVID pneumonia. 3. COVID. 4. Respiratory failure. 5. Anemia. PLAN: The patient is very anemic. The patient got a blood transfusion today. I am going to go ahead and have the patient ultrafilter today to relieve any component of pulmonary edema. He has a blood transfusion. His prognosis is still significantly guarded. He will get ultrafiltration today for 2.5 hours and we will try to take off maybe 1 to 2 L. His blood pressure is low, so that may limit how much we can actually take. Ather MD LAWRENCE Singh/MIKE /[id number]
--- NOTE | 2020-07-01 16:12 | Progress Note ---
DATE: SUBJECTIVE: Mr. Bob had tracheostomy done. He is comfortable. He is off Levophed. He is getting ultrafiltration. REVIEW OF SYSTEMS: He remains weak. OBJECTIVE: VITAL SIGNS: Stable, afebrile. HEENT: Normocephalic. NECK: Supple. CHEST: Few crackles. HEART: S1 and S2. ABDOMEN: Soft. Bowel sounds present. EXTREMITIES: No edema. SKIN: No rash. LABORATORY DATA: His hemoglobin 6.2 and white count of 8.9. His BUN 53, creatinine 1.03. IMPRESSION: Respiratory failure, acute kidney injury, viral pneumonia, COVID-19, diabetes mellitus, and anemia. Continue with supportive care at the present time as ordered. He is off antibiotic. Aspiration precaution, PT/OT, and nutritional support. MD JOSE Garay/MIKE /[id number]
--- NOTE | 2020-07-01 17:13 | Progress Note ---
DATE: 07/01/2020 CONSULTANTS: 1. Dr. Quigley, cardiac/vascular sonographer. 2. Dr. Robertson, ID. 3. Dr. Neumann, Cardiology. 4. Dr. Archer, Renal. 5. Dr. Ireland, Surgery. SUBJECTIVE: The patient is status post tracheostomy, on the vent and sedated. Ultrafiltration plan later today. PHYSICAL EXAMINATION: VITAL SIGNS: Temperature 97.7, pulse is 71, respirations 36, blood pressure 110/43, and pulse ox is 99% on the vent. GENERAL: Sedated. HEENT: Tracheostomy in place. CARDIOVASCULAR: Regular rate and rhythm. LUNGS: Decreased breath sounds. ABDOMEN: Soft and obese. NEUROLOGIC: Sedated. MUSCULOSKELETAL: Generalized edema, greater in the upper extremities. SKIN: Dry with multiple pressure ulcer. LABORATORY DATA: WBC 8.95, hemoglobin 6.2, and hematocrit 21.0. Sodium 138, potassium 4.1, BUN is 53, and creatinine 1.03. Chest x-ray shows no interval change and multifocal interstitial and airspace opacities. IMPRESSION: 1. Acute respiratory failure due to COVID-2019 pneumonia. Status post tracheostomy, vented and sedated. 2. Leukocytosis, resolved. Continue current treatment, off Merrem. 3. Trrir-ot-exlfjay anemia. Hemoglobin is 6.2. Transfuse 1 unit of PRBCs. 4. Acute kidney injury. Scheduled for ultrafiltration today. 5. Hypertension. Continue hydrochlorothiazide and hydralazine as needed. 6. Generalized edema and anasarca. Diuretics and ultrafiltration per Renal. 7. Atrial fibrillation. Now sinus rhythm. Continue amiodarone p.o. per Cardiology. 8. Deep vein thrombosis prophylaxis. Lovenox restarted. PLAN: To continue ultrafiltration per Renal and vent management per Pulmonary. Dictated by MARAH Castro Alicja Rodriguez MD MY/MODL /[id number]
[2020-07-01] MEDS ORDERED: HEPARIN SOD (PORCINE) 1000 UNIT/ML SDV ONE (18:36)
[2020-07-02] VITALS (24 sets, daily range): BP systolic 97–116; BP diastolic 40–58
--- NOTE | 2020-07-02 00:08 | Progress Note ---
DATE: 07/01/2020 Cardiology Progress Note SUBJECTIVE: Remains intubated and sedated. OBJECTIVE: VITAL SIGNS: Temperature 97.7, heart rate 71, blood pressure 110/43, respiratory rate 36, O2 saturation 99%, intubated and sedated. GENERAL: Sedated, on ventilator support. CHEST: With rales and decreased breath sounds. CARDIOVASCULAR: Regular rate and rhythm. Normal S1, S2. ABDOMEN: Soft. Bowel sounds positive. EXTREMITIES: 1+ edema. Normothermic. CARDIOVASCULAR MEDICATIONS: Reviewed. Off Levophed. On amiodarone 200 mg b.i.d., Lovenox 30 mg subcu daily. STUDIES: Reviewed. Creatinine 1.03, glucose 83. White blood cells 8.9, hemoglobin 6.2, platelets 170. INR 1. AST 20, ALT 13, alkaline phosphatase 71. ASSESSMENT AND PLAN: A 65-year-old man presents with acute respiratory failure, community-acquired, COVID-19 infection, status post trach, acute on chronic diastolic heart failure, anemia, paroxysmal atrial fibrillation. RECOMMENDATIONS: 1. Consider PRBC transfusion. Continue current amiodarone dosing. 2. Monitor H and H. 3. Would benefit from long-term anticoagulation. However, in presence of hemoglobin 6.2, we will hold anticoagulation for now and monitor for trach site. MD CHRISTINE Bal/MIKE /[id number]
[2020-07-02] MEDS: FENTANYL 2000MCG/NS 250 250 ML IV PRN ×2 (04:00→15:33)
[2020-07-02 05:36] LABS: BASOPHILS % 0.3 % (0.0-1.0); EOSINOPHILS # (AUTO) 0.5 (0.0-0.4); EOSINOPHILS % 3.5 % (0.0-6.0); HEMATOCRIT 25.3 % (38.2-49.6); HEMOGLOBIN 7.6 g/dL (14.0-18.0); LYMPHOCYTES # (AUTO) 1.9 (1.0-3.2); MEAN CORPUSCULAR HEMOGLOBIN 29.8 pg (28-32); MEAN CORPUSCULAR VOLUME 99.2 fL (81-99); MONOCYTES # (AUTO) 0.9 (0.2-0.8); MONOCYTES % 6.3 % (4.4-11.3); NEUTROPHILS # (AUTO) 10.9 (2.1-6.9); NEUTROPHILS % 75.5 % (38.7-80.0); PLATELET COUNT 198 x10e3/uL (140-360); RED BLOOD COUNT 2.55 x10e6/uL (4.3-5.7); RED CELL DISTRIBUTION WIDTH 17.8 % (11.7-14.4)
[2020-07-02 05:45] LABS: ALBUMIN 3.1 g/dL (3.5-5.0); ALBUMIN/GLOBULIN RATIO 0.8 (0.8-2.0); ANION GAP 19.7 mmol/L (8-16); CALCIUM 8.4 mg/dL (8.4-10.2); CREATININE, SERUM 1.48 mg/dL (0.72-1.25); POTASSIUM 4.7 mmol/L (3.5-5.1)
[2020-07-02 06:46] LABS: ABG HCO3 27 mmol/L (22-26); ABG PCO2 59 mmHg (35-45); ABG PH 7.26 (7.35-7.45); ABG PO2 63 mmHg (80-105); ABG TCO2 29
[2020-07-02] MEDS: ENOXAPARIN 30 MG/0.3 ML SYR SC SCH (06:53)
--- NOTE | 2020-07-02 07:44 | Diagnostic Imaging Report ---
EXAMINATION: CHEST SINGLE (PORTABLE) INDICATION: Respiratory failure COMPARISON: Multiple prior chest x-rays including most recent on 07/01/2020. FINDINGS: TUBES and LINES: tracheostomy which terminates approximately 7 cm above the cadence, subdiaphragmatic enteric tube, right PICC are unchanged. LUNGS: No significant interval change in multifocal interstitial and airspace opacities. PLEURA: No pleural effusion or pneumothorax. HEART AND MEDIASTINUM: The cardiomediastinal silhouette is unchanged. BONES AND SOFT TISSUES: No acute osseous lesion. Soft tissues are unchanged. UPPER ABDOMEN: No free air under the diaphragm. IMPRESSION: 1. Stable support lines/tubes. 2. No significant interval change in multifocal interstitial and airspace opacities. Signed by: Jai Marcial MD on 07/02/2020 7:40 AM
[2020-07-02] MEDS: ROCURONIUM BROMIDE 1,250 MG in SODIUM CHLORIDE 0.9% 250ML 125 ML IV SCH (08:30)
[2020-07-02] MEDS: COLLAGENASE 5 GM TUBE TP SCH (09:15)
[2020-07-02] MEDS: AMIODARONE HCL 200 MG TAB PO SCH ×2 (09:15→17:11)
--- NOTE | 2020-07-02 09:39 | Progress Note ---
DATE: SUBJECTIVE: The patient had tracheostomy yesterday. He remains on pressure control at a rate of 36 with a PEEP of 6 and pressure above PEEP of 36. His FiO2 is set at 85%. He is off Levophed. He remains on Versed and fentanyl and low-dose rocuronium. PHYSICAL EXAMINATION: VITAL SIGNS: The patient is afebrile. The blood pressure is 109/43, saturation is 92%. His pulse is 84. He is afebrile. HEENT: Shows no facial swelling or erythema. LYMPHATIC: Shows no submandibular, cervical, or supraclavicular adenopathy. CARDIAC: Reveals regular rate and rhythm with normal S1, S2. LUNGS: Auscultation of lungs reveals rhonchorous breath sounds bilaterally. There is no wheezing. ABDOMEN: Soft, nontender. There is no rebound or guarding. EXTREMITIES: Shows no leg edema or calf tenderness. There is no cyanosis or clubbing. SKIN: Shows no rashes. The patient is currently on enteral feedings. LABORATORY DATA: BUN to creatinine ratio is 75 to 1.48. The other electrolytes are significant for CO2 of 22, albumin is 3.1. White blood cell count is 14.5 and hemoglobin is 7.6. The platelet count is 198,000. Blood gas is 7.254 with a CO2 of 60 and an O2 of 64 and a bicarbonate of 26.7. RADIOGRAPHIC DATA: Chest x-ray shows bilateral interstitial infiltrates. There is a tracheostomy in place. There is a PICC line. IMPRESSION: 1. Acute respiratory failure. 2. Acute renal failure. 3. Viral pneumonia and coronavirus disease -19 infection. 4. Moderate protein-calorie malnutrition. 5. Diabetes. 6. Anemia secondary to chronic blood loss. PLAN: 1. The patient will be continued on current ventilator settings. 2. Continue Versed and fentanyl along with low-dose rocuronium. 3. The patient is scheduled for a tunneled dialysis catheter tomorrow with Interventional Radiology. 4. Continue enteral feedings. 5. Case discussed with nursing, Respiratory, General Surgery, Infectious Disease, and Internal Medicine. 6. Case also discussed with family. Greater than 35 minutes in direct critical care time. MD FRANCES Mae/MIKE /[id number]
[2020-07-02] MEDS: MIDAZOLAM HCL 5MG/ML 10ML VIAL 100 ML IV PRN ×2 (09:42→22:22)
[2020-07-02] MEDS: NOREPINEPHRINE 8 MG/D5W 250 ML 250 ML IV SCH (11:45)
[2020-07-02] MEDS ORDERED: SODIUM CHLORIDE 0.9% 250ML 250 ML IV ONE (12:00)
[2020-07-02] MEDS ORDERED: HEPARIN SOD/SOD CHLORIDE 1,000 ML IV ONE (15:45)
--- NOTE | 2020-07-02 15:59 | NUR ---
progress note The patient remains in intensive care unit events noted the patient had tracheostomy yesterday. The patient shows weak but does not seem in acute distress his medication list reviewed Dominick the interview discusses all medical team e remains on pressure control at a rate of 36 with a PEEP of 6 and pressure above PEEP of 36. His FiO2 is set at 85%. He is off Levophed. He remains on Versed and fentanyl and low-dose rocuronium. PHYSICAL EXAMINATION: VITAL SIGNS: The patient is afebrile. The blood pressure is 109/43, saturation is 92%. His pulse is 84. He is afebrile. HEENT: Shows no facial swelling or erythema. LYMPHATIC: Shows no submandibular, cervical, or supraclavicular adenopathy. CARDIAC: Reveals regular rate and rhythm with normal S1, S2. LUNGS: Auscultation of lungs reveals rhonchorous breath sounds bilaterally. There is no wheezing. ABDOMEN: Soft, nontender. There is no rebound or guarding. EXTREMITIES: Shows no leg edema or calf tenderness. There is no cyanosis or clubbing. SKIN: Shows no rashes. The patient is currently on enteral feedings. LABORATORY DATA: BUN to creatinine ratio is 75 to 1.48. The other electrolytes are significant for CO2 of 22, albumin is 3.1. White blood cell count is 14.5 and hemoglobin is 7.6. The platelet count is 198,000. Blood gas is 7.254 with a CO2 of 60 and an O2 of 64 and a bicarbonate of 26.7. RADIOGRAPHIC DATA: Chest x-ray shows bilateral interstitial infiltrates. There is a tracheostomy in place. There is a PICC line. IMPRESSION: 1. Acute respiratory failure. 2. Acute renal failure. 3. Viral pneumonia and coronavirus disease -19 infection. 4. Moderate protein-calorie malnutrition. 5. Diabetes. 6. Anemia secondary to chronic blood loss. Continue as ordered recheck lab
[2020-07-03] VITALS (28 sets, daily range): BP systolic 94–158; BP diastolic 40–55
--- NOTE | 2020-07-03 00:21 | Progress Note ---
DATE: 07/02/2020 Renal Progress Note SUBJECTIVE: Events over the past 24 hours have been noted. There are no new events. The patient underwent ultrafiltration yesterday, 2 L were removed. PHYSICAL EXAMINATION: VITAL SIGNS: Stable. GENERAL: The patient is in the supine position now. He remains on the ventilator. HEENT: The patient has a trach. CARDIOVASCULAR: Regular rate and rhythm. LUNGS: High pitch, smooth, and crackles bilaterally. ABDOMEN: Decreased bowel sounds. EXTREMITIES: Edema of the arms. The patient has a dialysis catheter. LABORATORY RESULTS: Hemoglobin and hematocrit 7.6 and 25.3 respectively. Sodium 136, potassium 4.7, chloride 99, bicarbonate 22, BUN and creatinine 78 and 1.48 respectively. Chest x-ray shows no significant interval change and multifocal interstitial and airspace opacities. IMPRESSION: 1. Acute kidney injury. 2. Coronavirus disease pneumonia. 3. Respiratory failure. 4. Anemia. 5. Azotemia. PLAN: The patient underwent ultrafiltration yesterday, 2 L were ultrafiltered. He also received 1 unit of blood. The blood count is still a little bit low. Oxygenation, the patient is on 85% FiO2. The patient has a femoral Jaswinder catheter that will be exchanged out for a tunneled dialysis catheter tomorrow, since it looks like the patient is going to need ongoing dialysis and/or ultrafiltration. I am planning on scheduling the dialysis tomorrow. We may give 1 unit of blood tomorrow also just to keep his hemoglobin around 9-10. MD LAWRENCE Laurent/MIKE /[id number]
[2020-07-03] MEDS: FENTANYL 2000MCG/NS 250 250 ML IV PRN ×2 (04:00→15:46)
[2020-07-03 04:25] LABS: BASOPHILS % 0.3 % (0.0-1.0); EOSINOPHILS # (AUTO) 0.5 (0.0-0.4); HEMATOCRIT 25.7 % (38.2-49.6); HEMOGLOBIN 7.5 g/dL (14.0-18.0); LYMPHOCYTES % 13.6 % (18.0-39.1); MEAN CORPUSCULAR HEMOGLOBIN 28.3 pg (28-32); MEAN CORPUSCULAR HGB CONC 29.2 g/dL (31-35); MONOCYTES # (AUTO) 1.1 (0.2-0.8); NEUTROPHILS # (AUTO) 11.2 (2.1-6.9); NEUTROPHILS % 74.4 % (38.7-80.0); PLATELET COUNT 170 x10e3/uL (140-360); RED BLOOD COUNT 2.65 x10e6/uL (4.3-5.7); RED CELL DISTRIBUTION WIDTH 17.2 % (11.7-14.4)
[2020-07-03 04:44] LABS: ALBUMIN 3.1 g/dL (3.5-5.0); ALBUMIN/GLOBULIN RATIO 0.8 (0.8-2.0); ANION GAP 15.5 mmol/L (8-16); CALCIUM 8.5 mg/dL (8.4-10.2); CREATININE, SERUM 1.81 mg/dL (0.72-1.25); POTASSIUM 5.5 mmol/L (3.5-5.1)
[2020-07-03] MEDS: ENOXAPARIN 30 MG/0.3 ML SYR SC SCH (06:03)
--- NOTE | 2020-07-03 07:51 | Diagnostic Imaging Report ---
EXAMINATION: CHEST SINGLE (PORTABLE) INDICATION: Respiratory failure COMPARISON: Prior day chest x-ray FINDINGS: TUBES and LINES: tracheostomy which terminates approximately 7 cm above the cadence, subdiaphragmatic enteric tube, right PICC are unchanged. LUNGS: No significant interval change in multifocal interstitial and airspace opacities. PLEURA: No pleural effusion or pneumothorax. HEART AND MEDIASTINUM: The cardiomediastinal silhouette is unchanged. BONES AND SOFT TISSUES: No acute osseous lesion. Soft tissues are unchanged. UPPER ABDOMEN: No free air under the diaphragm. IMPRESSION: 1. Stable support lines/tubes. 2. No significant interval change in multifocal interstitial and airspace opacities. Signed by: Mal Donaldson DO on 07/03/2020 7:48 AM
[2020-07-03] MEDS: ROCURONIUM BROMIDE 1,250 MG in SODIUM CHLORIDE 0.9% 250ML 125 ML IV SCH (08:30)
[2020-07-03] MEDS: COLLAGENASE 5 GM TUBE TP SCH (08:55)
[2020-07-03] MEDS: AMIODARONE HCL 200 MG TAB PO SCH ×2 (08:55→16:07)
--- NOTE | 2020-07-03 09:02 | Progress Note ---
DATE: SUBJECTIVE: The patient is currently on a pressure control mode of ventilation is set at a rate of 36 with a FiO2 of 90% and a PEEP of 6. The pressure above PEEP is set at 36. The patient is off Levophed. Rocuronium is on hold and the patient is on Versed at 4 mg and fentanyl at 150 mcg. PHYSICAL EXAMINATION: VITAL SIGNS: Blood pressure is 133/44, pulse is 67, saturation is 97% on the above settings. HEENT: Shows no facial swelling or erythema. LYMPHATIC: Shows no submandibular, cervical or supraclavicular adenopathy. CARDIAC: Reveals regular rate and rhythm with normal S1 and S2. LUNGS: Auscultation of lungs reveals rhonchorous breath sounds bilaterally. There is no wheezing. ABDOMEN: Soft and nontender. There is no rebound or guarding. EXTREMITIES: Shows no leg edema or calf tenderness. There is no cyanosis or clubbing. SKIN: Shows no rashes. NEUROLOGICAL: Shows no focal abnormalities. LABORATORY DATA: BUN to creatinine ratio is 101 to 1.81 and the sodium is 132. Potassium is 5.5. The white blood cell count is 14.98 and the hemoglobin is 7.5. The platelet count is 170. RADIOGRAPHIC DATA: Chest x-ray shows bilateral airspace opacities. IMPRESSION: 1. Acute respiratory failure. 2. Acute renal failure. 3. Viral pneumonia and COVID-19 infection. 4. Moderate protein-calorie malnutrition. 5. Diabetes. 6. Anemia. PLAN: 1. Continue current ventilator settings and await ABG. 2. Continue Versed and fentanyl. 3. The patient is scheduled to go for a tunneled dialysis catheter today. 4. Continue enteral feedings. 5. Greater than 35 minutes in direct critical care time. Manuel Quigley MD [facility]/MODL /[id number]
[2020-07-03 09:43] LABS: ABG HCO3 25 mmol/L (22-26); ABG PCO2 60 mmHg (35-45); ABG PH 7.23 (7.35-7.45); ABG PO2 115 mmHg (80-105); ABG TCO2 27
[2020-07-03] MEDS ORDERED: SODIUM CHLORIDE 0.9% 250ML 250 ML ONE (10:36)
[2020-07-03] MEDS: MIDAZOLAM HCL 5MG/ML 10ML VIAL 100 ML IV PRN ×2 (12:02→23:02)
--- NOTE | 2020-07-03 12:03 | Progress Note ---
DATE: 07/03/2020 Cardiology Progress Note SUBJECTIVE: Mr. Bob remained intubated and sedated. OBJECTIVE: VITAL SIGNS: Temperature 98 degrees, heart rate 67, blood pressure 133/44, respiratory rate 36, O2 saturation 97%. GENERAL: In no acute distress. Intubated, sedated. NECK: Supple. CHEST: With decreased breath sounds and rales. CARDIOVASCULAR: Regular rate and rhythm. Normal S1, S2. ABDOMEN: Soft. EXTREMITIES: 1+ edema. CARDIOVASCULAR MEDICATIONS: Reviewed. 1. Albumin. 2. Amiodarone. 3. Mannitol. 4. Lovenox. STUDIES: Reviewed. Potassium 5.5, creatinine 1.8, trending up. White blood cells 14, hemoglobin 7.5, platelets 170. ASSESSMENT AND PLAN: 1. A 65-year-old man with acute respiratory failure, COVID-19 infection, pneumonia, hypertension, paroxysmal atrial fibrillation, acute on chronic diastolic heart failure, anemia. Recommend volume optimization and electrolyte management per Nephrology expertise. 2. Continue amiodarone. 3. Hemoglobin 7.5 today, monitor overnight. If continues to remain stable with no gross bleeding, consider increasing anticoagulation to therapeutic dosing given paroxysmal atrial fibrillation. Mario Harris MD [facility]/MODL /[id number]
[2020-07-03] MEDS ORDERED: SODIUM CHLORIDE 0.9% 1000ML 2,000 ML IV PRN (12:30)
[2020-07-03] MEDS ORDERED: HEPARIN SOD (PORCINE) 1000 UNIT/ML SDV IV PRN (12:30)
--- NOTE | 2020-07-03 14:24 | Progress Note ---
DATE: 07/02/2020 Cardiology Progress note SUBJECTIVE: Remains sedated. OBJECTIVE: VITAL SIGNS: Temperature 99 degrees, heart rate 76, blood pressure 99/55, respiratory rate 36, and O2 saturation 93%. GENERAL: Sedated on vent support, chronically ill-appearing. NECK: With trach in place, connected to vent. CHEST: With rales and decreased breath sounds. CARDIOVASCULAR: Regular rate and rhythm. Normal S1, S2. ABDOMEN: Soft. Bowel sounds positive. EXTREMITIES: 1+ edema. CARDIOVASCULAR MEDICATIONS: Reviewed. Lovenox 30 mg daily and amiodarone 200 mg b.i.d. LABORATORY DATA: Creatinine 1.4, hemoglobin 7.6, white blood cells 14, and platelets 198. ASSESSMENT AND PLAN: A 65-year-old man with paroxysmal atrial fibrillation, hypertension, acute on chronic diastolic heart failure, coronavirus disease-19 infection, community-acquired pneumonia, and acute respiratory failure. RECOMMENDATIONS: Continue current cardiovascular medications. Monitor H and H. Mario Harris MD [facility]/MODL /[id number]
--- NOTE | 2020-07-03 18:31 | Progress Note ---
DATE: 07/03/2020 CONSULTANTS: 1. Dr. Quigley, crawler dragline operator. 2. Dr. Robertson, ID. 3. Dr. Neumann, Cardiology. 4. Dr. Singh, Renal. 5. Dr. Ireland, Surgery. SUBJECTIVE: The patient in supine position, status post tracheostomy, on the vent, sedated. No events overnight. PHYSICAL EXAMINATION: VITAL SIGNS: Temperature 98.6, pulse is 73, respirations 36, blood pressure 122/46, pulse ox 92% on the vent. GENERAL: Sedated. HEENT: Tracheostomy in place. CARDIOVASCULAR: Regular rate and rhythm. LUNGS: With decreased breath sounds. ABDOMEN: Soft and obese. NEUROLOGIC: Sedated. MUSCULOSKELETAL: Generalized edema greater in the upper extremities. SKIN: Dry with multiple pressure ulcers. LABORATORY DATA: WBC 14.98, hemoglobin 7.5, hematocrit 25.7, platelet 170. Sodium 132, potassium 5.5, creatinine 1.81, estimated GFR 38, AST 19, ALT 16. ABG, pH 7.23, pCO2 60, PO2 115. IMAGING: Chest x-ray shows stable lines, no significant interval change in the multifocal interstitial and airspace opacities. IMPRESSION: 1. Acute respiratory failure due to COVID-19 pneumonia. Status post tracheostomy, vent management per crawler dragline operator. 2. Leukocytosis. WBC 14.98. He is off antibiotics per ID. 3. Acute on chronic anemia. Status post transfusion. Hemoglobin is 7.5. 4. Acute kidney injury. Creatinine is 1.8. Scheduled for HD cath placement and dialysis. 5. Hypertension. Continue hydrochlorothiazide and hydralazine as needed. 6. Generalized edema and anasarca. Diuretics and HD per Renal. 7. Atrial fibrillation, now sinus rhythm, we will continue on amiodarone p.o. per Cardiology. 8. Deep vein thrombosis prophylaxis. Lovenox subcu. PLAN: To continue current treatment, HD catheter to be placed and dialysis today. Dictated by MARAH Castro Alicja Rodriguez MD MY/MODL /[id number]
--- NOTE | 2020-07-03 18:36 | Progress Note ---
DATE: Renal Progress Note SUBJECTIVE: Events of the past 24 hours have been noted. PHYSICAL EXAMINATION: VITAL SIGNS: Currently, blood pressure 124/61, pulse 80, respirations 16. The patient is on 7 mcg of Levophed. GENERAL: The patient remains ventilated. HEENT: The patient has a trach. CARDIOVASCULAR: Regular rate and rhythm. LUNGS: High pitch squeals, decreased breath sounds bilaterally. ABDOMEN: Decreased bowel sounds. EXTREMITIES: The patient has some edema of the arms and the legs. LABORATORY RESULTS: Sodium 132, potassium 5.5, chloride 99, bicarbonate 23, BUN and creatinine 101 and 1.8 respectively. Calcium 8.5. Hemoglobin and hematocrit 7.5 and 25.7. IMPRESSION AND PLAN: 1. Acute kidney injury. 2. COVID pneumonia. 3. Respiratory failure. 4. Anemia. 5. Azotemia. 6. Hyperkalemia. PLAN: The patient is more azotemic today. He is also hyperkalemic. We did dialysis today. We performed dialysis via the Jaswinder catheter. The patient underwent dialysis today with two potassium bath, 2.5 calcium bath ultrafiltration 3 L, however, his blood pressure was a little bit low, so Levophed was added. Right now, the Levophed is at 7 mcg. Hopefully we can titrate the Levophed down. He tolerated the dialysis well. The patient is going to go for a tunneled catheter placement tomorrow and that temporary Jaswinder, which is in the femoral area will be removed. He has had that for several days now and a tunneled catheter will be placed tomorrow. Ather MD LAWRENCE Singh/MIKE /[id number]
--- NOTE | 2020-07-03 19:06 | Progress Note ---
DATE: 07/02/2020 CONSULTANTS: 1. Dr. Quigley, supervisor sample preparation. 2. Dr. Robertson, ID. 3. Dr. Neumann, cardiology. 4. Dr. Singh, Renal. 5. Dr. Ireland, Surgery. SUBJECTIVE: The patient remains in supine position, sedated, post tracheostomy vented. Afebrile. PHYSICAL EXAMINATION: VITAL SIGNS: Temperature 99.0, pulse is 76, respirations 36, blood pressure 99/55, and pulse ox 93% on the vent. General: Sedated. HEENT: Tracheostomy in place. Vented. CARDIOVASCULAR: Regular rate and rhythm. LUNGS: With decreased breath sounds. ABDOMEN: Soft and obese. NEUROLOGIC: Sedated. MUSCULOSKELETAL: Generalized edema, improving, greater in the upper extremities. SKIN: Dry with multiple pressure ulcers. LABORATORY DATA: WBC 14.49, hemoglobin 7.6, hematocrit 25.3, and platelet 198. Sodium 136, potassium 4.7, BUN 78, creatinine 1.48, estimated GFR 48, glucose 122, AST 20, and ALT 14. IMAGING: Chest x-ray shows no significant interval change in multifocal interstitial and airspace opacities. IMPRESSION: 1. Acute respiratory failure due to coronavirus disease-19 pneumonia. Status post tracheostomy, vent management per supervisor sample preparation. 2. Leukocytosis. Currently off Merrem. Continue to monitor per Infectious Disease. 3. Acute on chronic anemia. Status post 1 unit of PRBCs. Hemoglobin today is 7.6. 4. Acute kidney injury. Scheduled for dialysis tomorrow per Renal. 5. Hypertension. Continue on hydrochlorothiazide and hydralazine as needed. 6. Generalized edema and anasarca. Diuretics and ultrafiltration/dialysis per Renal. 7. Atrial fibrillation. Now sinus rhythm. Continue amiodarone per Cardiology. 8. Deep vein thrombosis prophylaxis. Lovenox restarted. PLAN: To continue current treatment, repeat labs in a.m., ultrafiltration per Renal tomorrow. Vent management per Pulmonary. Dictated by MARAH Castro Stacyching Anmol Rodriguez MD MY/MODL /[id number]
[2020-07-04] VITALS (28 sets, daily range): BP systolic 88–152; BP diastolic 43–58
[2020-07-04] MEDS: FENTANYL 2000MCG/NS 250 250 ML IV PRN ×2 (03:59→18:20)
[2020-07-04 05:11] LABS: BASOPHILS % 0.3 % (0.0-1.0); EOSINOPHILS # (AUTO) 0.4 (0.0-0.4); EOSINOPHILS % 2.6 % (0.0-6.0); HEMOGLOBIN 8.5 g/dL (14.0-18.0); LYMPHOCYTES # (AUTO) 1.9 (1.0-3.2); LYMPHOCYTES % 12.4 % (18.0-39.1); MEAN CORPUSCULAR HEMOGLOBIN 28.9 pg (28-32); MEAN CORPUSCULAR HGB CONC 30.4 g/dL (31-35); MEAN CORPUSCULAR VOLUME 95.2 fL (81-99); MONOCYTES # (AUTO) 1.1 (0.2-0.8); MONOCYTES % 7.4 % (4.4-11.3); NEUTROPHILS # (AUTO) 11.7 (2.1-6.9); NEUTROPHILS % 75.6 % (38.7-80.0); PLATELET COUNT 196 x10e3/uL (140-360); RED BLOOD COUNT 2.94 x10e6/uL (4.3-5.7); RED CELL DISTRIBUTION WIDTH 17.3 % (11.7-14.4)
[2020-07-04 05:30] LABS: ALBUMIN/GLOBULIN RATIO 0.7 (0.8-2.0); ANION GAP 17.6 mmol/L (8-16); CALCIUM 8.6 mg/dL (8.4-10.2); CREATININE, SERUM 1.35 mg/dL (0.72-1.25); POTASSIUM 4.6 mmol/L (3.5-5.1)
[2020-07-04] MEDS: AMIODARONE HCL 200 MG TAB PO SCH ×2 (08:13→17:36)
[2020-07-04] MEDS: COLLAGENASE 5 GM TUBE TP SCH (08:13)
[2020-07-04] MEDS: ROCURONIUM BROMIDE 1,250 MG in SODIUM CHLORIDE 0.9% 250ML 125 ML IV SCH ×2 (08:13→10:20)
[2020-07-04 08:20] LABS: ABG HCO3 24 mmol/L (22-26); ABG PCO2 44 mmHg (35-45); ABG PH 7.34 (7.35-7.45); ABG PO2 70 mmHg (80-105); ABG TCO2 25
--- NOTE | 2020-07-04 08:36 | Diagnostic Imaging Report ---
TECHNIQUE: Frontal view of the chest. INDICATION: ^resp failure ^[id number] ^0610 COMPARISON: Prior day. DISCUSSION: Limited evaluation due to portable technique. Lines and hardware: Stable tracheostomy tube, right PICC and enteric tube which is partially visualized with tip out of the field of view inferiorly. Multiple overlying EKG leads are again noted. Heart and mediastinum: Stable. Lungs and pleura: Stable multifocal interstitial and airspace opacities. Soft tissues and bones: No acute abnormality. IMPRESSION: Stable exam. Signed by: Ced Duncan MD on 07/04/2020 8:33 AM
--- NOTE | 2020-07-04 09:30 | Progress Note ---
DATE: SUBJECTIVE: Mr. Bob remains in intensive care unit, intubated, sedated. PHYSICAL EXAMINATION: VITAL SIGNS: Stable, afebrile. Temperature 98, heart rate 67, blood pressure 133/54. HEENT: Normocephalic. NECK: Supple. CHEST: Few rhonchi. HEART: S1, S2. ABDOMEN: Soft. Bowel sounds present. EXTREMITIES: Trace edema. IMPRESSION: Respiratory failure, anemia of chronic disease, leukocytosis 14.5, chronic kidney disease. The patient is on Lovenox. Continue supportive care. Continue amiodarone. We will follow. MD JOSE Garay/MIKE /[id number]
--- NOTE | 2020-07-04 10:46 | Progress Note ---
DATE: SUBJECTIVE: The patient is currently not synchronized with the ventilator. His Versed is being increased to 5 mg and his fentanyl is being increased to 100 mcg. His rocuronium will be restarted. He is on a pressure control mode of ventilation at a rate of 36 with a pressure control of 36 and a PEEP of 8. His FiO2 is set at 80%. PHYSICAL EXAMINATION: VITAL SIGNS: Blood pressure is 149/54 and the saturation is 98% on the above-mentioned ventilator settings. The pulse is 74. HEENT: Shows no facial swelling or erythema. LYMPHATIC: Shows no submandibular, cervical or supraclavicular adenopathy. CARDIAC: Reveals regular rate and rhythm with normal S1 and S2. LUNGS: Auscultation of lungs reveals rhonchorous breath sounds bilaterally. There is no wheezing. ABDOMEN: Soft and nontender. There is no rebound or guarding. EXTREMITIES: Shows no leg edema or calf tenderness. There is no cyanosis or clubbing. SKIN: Shows no rashes. NEUROLOGICAL: Shows no focal abnormalities. LABORATORY DATA: White blood cell count is 15.5 and the hemoglobin is 8.5. The platelet count is 196. The BUN to creatinine ratio is 67 to 1.35. Other electrolytes are within normal limits. Albumin is 3. Blood gases; 7.34, 44, 70 and 24. RADIOGRAPHIC DATA: Chest x-ray shows continued bilateral infiltrates. IMPRESSION: 1. Acute respiratory failure. 2. Acute renal failure. 3. Viral pneumonia and COVID-19 infection. 4. Diabetes. 5. Anemia. 6. Moderate protein-calorie malnutrition. PLAN: 1. Continue current ventilator settings and repeat ABG. 2. The patient to go for tunneled dialysis catheter today. 3. Continue Versed and fentanyl along with rocuronium. 4. Continue enteral feedings. Greater than 35 minutes in direct critical care time. Manuel Quigley MD [facility]/MODL /[id number]
--- NOTE | 2020-07-04 12:36 | Progress Note ---
DATE: 07/04/2020 Renal Progress Note SUBJECTIVE: Events over the past 24 hours have been noted. The patient is scheduled to undergo a placement of a tunneled dialysis catheter and removal of temporary femoral dialysis catheter. The patient is in the supine position. The patient is on 80% FiO2. PHYSICAL EXAMINATION: VITAL SIGNS: Stable. GENERAL: The patient is supine. He has a trach. He remains on the vent. CARDIOVASCULAR: Regular rhythm. LUNGS: Decreased breath sounds. High-pitched bilaterally. ABDOMEN: Decreased bowel sounds. EXTREMITIES: Edema of the arms. The patient has a femoral Jaswinder catheter. LABORATORY RESULTS: Hemoglobin and hematocrit 8.5 and 28 respectively. Sodium 138, potassium 4.6, chloride 99, bicarbonate 24, BUN and creatinine is 67 and 1.35 respectively. IMPRESSION: 1. Acute kidney injury. 2. COVID pneumonia. 3. Respiratory failure. 4. Azotemia. PLAN: The patient underwent dialysis yesterday, 3 L were ultrafiltered. The patient is going for placement of a tunneled dialysis catheter today and then with removal of the femoral Jaswinder catheter and there would no renal replacement therapy will be done today. We will assess him tomorrow and most likely, he will get on dialysis with ultrafiltration tomorrow. Ather MD STONE Giles/MIKE /[id number]
[2020-07-04] MEDS ORDERED: HEPARIN SOD (PORCINE) 1000 UNIT/ML SDV ONE (13:10)
[2020-07-04] MEDS ORDERED: CEFAZOLIN SOD 1 GM/NS 50ML 100 ML IV ONE (13:10)
[2020-07-04] MEDS ORDERED: MIDAZOLAM HCL 2 MG/2 ML VIAL ONE (13:11)
[2020-07-04] MEDS ORDERED: FENTANYL CITRATE/PF 100MCG/2 ML INJ ONE (13:11)
[2020-07-04] MEDS ORDERED: SODIUM CHLORIDE 0.9% 250ML 250 ML ONE (13:15)
[2020-07-04] MEDS ORDERED: LIDOCAINE HCL 1% LOCAL INJ 20 ML VIAL ONE (13:15)
[2020-07-04] MEDS ORDERED: MIDAZOLAM HCL 5MG/ML 10ML VIAL 100 ML IV ONE (13:51)
--- NOTE | 2020-07-04 14:40 | NUR ---
Nutrition Intervention Note RD Recommendation(s) for Physician: -Continue Pivot 1.5 at goal rate of 45 ml/hr (to provide 1620 kcal and 101 gm protein) -Pt may be fed when in prone position at goal rate in reverse Trendelenburg with HOB at 10-25 degrees -Fluid/water management per MD -Recommend probiotic such as Florinef, Florinex, or Lactinex BID Plan of Care: RD following, monitoring for tolerance and adequacy, tube feed recommendation Nutrition reason for involvement: follow up RD Assessment 07/04: Follow up. Pt remains intubated via trach, sedated, and paralyzed. No pressor support. Pt supine currently. Continues on TF of Pivot 1.5 at goal rate of 45 ml/hr, tolerating at goal rate. Pt discussed during MDR, plan for TDC placement today as pt continues to require dialysis. Current TF remains appropriate. Chart reviewed. Will continue to monitor. 06/29: Follow up. Chart reviewed. Pt remains intubated/sedated and is in the prone position per chart. Pt is tolerating tube feeding at 45 mL/hr. Current recommendations remain appropriate. Will continue to monitor. 06/26: Follow up. Chart reviewed. Pt remains intubated and sedated. Trach placement is being discussed per chart. Pt is tolerating tube feeding of Pivot at goal of 45 mL/hr which meets nutritional needs. Will continue to monitor. 06/21: Follow up. Chart reviewed. Pt had been receiving tube feeding at goal rate of 45 mL/hr per RN which meets nutritional needs. Will continue to monitor. 06/16: Follow up. Chart reviewed. Pt remains intubated and is in the supine position. Pts tube feeding is at goal rate of 45 mL/h which is meeting needs. Will continue to monitor 06/13: Follow up. Pt remains intubated and paralyzed requiring intermittent proning. Pt currently on Levophed at 8 mcg/min. TF continues to meet >75% of estimated needs. Chart reviewed. Will continue to monitor. 06/09: Follow up. Pt remains intubated and sedated. It is documented that pts tube feed is at 35 mL/hr. It is noted that pt has been in the prone position overnight. Will continue to monitor 06/06: Follow up. Pt remains intubated, sedated, and paralyzed. No pressor support. Pt continues on TF of Vital HP, infusing at 20 ml/hr at time of visit- RN unavailable to discuss rate. Pt not meeting needs with current TF > [address] Quigley regarding TF and goal rate, MD amenable to continuing goal rate while in prone position as it is not contraindicated. RD to modify TF order per MD. Chart reviewed. Will continue to monitor. 06/02: Follow up. Chart reviewed. Pt remains intubated and sedated. Pt is receiving Vital HP @ 30 mL/hr at this time - not meeting nutritional needs. Current recommendations remain appropriate. Will continue to monitor. 05/29: Follow up. Chart reviewed. Pt remains intubated and sedated. MD note indicates that pt remains in the prone position. Pt is receiving Vital HP @ 20 mL/hr at this time. Current recommendations remain appropriate. Will continue to monitor. 05/24: Follow up. Pt remains intubated and sedated, requiring to be proned- no paralytic currently. Vital HP infusing at goal rate, providing >75% of estimated needs. Chart reviewed. Current TF rec's remain appropriate. Will continue to monitor. 05/22: Follow up. Pt remains intubated, paralyzed, and sedated. TF documented as Glucerna 1.2 at 30 ml/hr currently, not meeting needs. Pt requiring proning at times. Pt with chest tubes to output. Current TF rec's remain appropriate. Chart reviewed. Will continue to monitor. 05/17: Follow up. Chart reviewed. Pt remains intubated. RN reports that pts tube feeding is at 10 mL/hr at this time and pt is in the prone position. Current recommendations remain appropriate. Will continue to monitor. 05/12: Pt was intubated yesterday and tube feeding was ordered. It is recorded that pt consumed 25% of breakfast on 05/10 and was previously consuming 50-100% of meals. Recommendations provided. Will continue to monitor. 05/09: 65 YOM admitted for hypoxia and pneumonia due to COVID-19. Pt assessed today for LOS. Attempted to call pt's room x 2, no answer- unable to obtain hx at this time. No wt loss or poor intake indicated at admit per MD notes. Pt with 50-100% intake since admit. Pt currently on Vapotherm per current respiratory status. Labs and meds reviewed. LBM 05/08, skin intact. Chart reviewed. Will continue to monitor. Principal Problems/Diagnoses: hypoxia, pneumonia due to COVID-19 PMH: HTN, HLD GI: last recorded BM 07/04- liquid stool, soft/large/round abdomen Skin: stage 2 pressure ulcer/suspected DTI left ear, stage 2 pressure ulcer bilateral cheek, stage 2 pressure ulcer lower urethral meatus Labs: 07/04: Na 136, K 4.6, BUN 67, Cr 1.35, Gluc 92, Ca 8.6 06/29: Na 134, K 5.0, BUN 66, Cr 1.14, Glu 132, Ca 8.3 06/26: Na 139, K 4.3, BUN 76, Cr 0.98, Glu 119, Ca 8.3 06/21: Na 154, K 3.5, BUN 65, Cr 0.66, Glu 144 06/16: Na 146, K 4.1, BUN 38, Cr 0.69, Glu 138, AST 35 06/13: Na 142, K 3.1, BUN 29, Cr 0.62, Gluc 123, Ca 8.8 06/09: Na 148, K 4.5, BUN 32, Cr 0.56, Glu 160 06/06: Na 147, K 3.3, BUN 22, Cr 0.62, Gluc 135, Ca 9 06/02: Na 140, K 3.5, BUN 24, Cr 0.66, Glu 116 05/29: Na 141, K 3.9, BUN 24, Cr 0.66, Glu 87, Ca 9.5 05/24: Na 147, K 3, BUN 27, Cr 0.61, Gluc 100, POC Gluc 123-126, Ca 6.3, Mg 1.5 05/22: Na 143, K 4.5, BUN 28, Cr 0.77, Gluc 122, POC Gluc 122-136 (05/17/20) Na 141, K 4.2, BUN 18, Cr 0.61, Glu 87, Ca 8.7 (05/12/20) Na 141, K 5.4, BUN 33, Cr 0.76, Glu 118, Ca 7.9 Meds: IVF/Drips: Rocuronium drip, Fentanyl drip, Versed drip Ht: 66 inches Wt: 215.44 lbs () 200 lbs (06/29) 211 lbs (06/21) 213 lbs (06/16) 215 lbs (06/13) 211 lbs (06/08) 212 lbs (06/06) 221 lbs (06/02) 246 lbs (05/28) 218 lbs (05/09) BMI: 35.2 using weight of 218 lbs IBW: 142 lbs Malnutrition Evaluation (06/29/20) The patient does not meet criteria for a specified degree of malnutrition at this time. Energy intake: pt is meeting kcal and protein needs with current tube feed rate Weight loss: does not meet criteria- wt fluctuations since admit noted with no significant change from admit wt, likely fluid related Fat loss: none- ample skinfold thickness of upper arms, observed outside of pt room Muscle loss: none- shoulder round, observed outside of pt room Supporting Evidence: Fluid accumulation: +1 edema in extremities Functional Status: unable to evaluate- pt intubated and sedated Nutrition Prescription (Diet Order): Pivot 1.5 @ goal of 45 mL/hr- infusing at goal rate per chart (1620 kcal and 101 gm protein) Estimated Nutritional Needs: 4018-0619 calories/day (22-25 kcal/kg IBW) 97-129 g protein/day (1.5-2 g pro/kg IBW) Diet Adequacy: Meeting calorie needs, meeting protein needs Tolerance: tolerating TF Diet Education Needs Assessment: Diet education is not indicated, pt is intubated Nutrition Care Level: moderate Nutrition Diagnosis: Inadequate oral intake related to acute respiratory failure/mechanical ventilation as evidenced by requiring enteral nutrition. Goal: Patient will meet 75-100% of estimated needs by follow up Progress: goal met Interventions: - Composition, Rate, Route Monitoring/Evaluation: -Total energy intake, Total protein intake, Formula/Solution, Weight change Signed: Carrie Corrigan RD, LD, [facility]
--- NOTE | 2020-07-04 14:45 | Diagnostic Imaging Report ---
Tunneled dialysis catheter insertion. History: Renal failure. Long-term HD requirement. Modality: Sonography and fluoroscopy. Sedation: Moderate sedation was administered. Patient was on sedative drips from the ICU which were monitored and adjusted by the ICU nurse during the procedure. Total intra-service time of sedation was 30 minutes. The patient's vital signs were monitored throughout the procedure and recorded in the patient's medical record by the nurse. Stripper Black And White: Ced Duncan M.D. Internal Controls Specialist: None. Approach: Right internal jugular vein Estimated blood loss: < 5 cc. Specimen: None. Fluoroscopy Time: 0.6 min. Dose (Ka,r): 6.8 mGy. Technique: Informed written consent was obtained. Discussion of risks, benefits, and alternatives were made with the patient. The patient expressed understanding and agreed to proceed. All elements maximal sterile barrier technique was utilized for this procedure, including utilization of sterile scrub solution for skin prep, a large sterile sheet to cover the areas of the patient that were not prepped, and hand hygiene, mask, head covering, and sterile gown for performing radiologist and scrub technologist. The skin was anesthetized with 2% lidocaine.Ultrasound evaluation showed a patent and compressible right internal jugular vein, which was punctured under direct real-time ultrasound guidance with a micropuncture needle. An ultrasound image was saved to PACS. A 0.018 inch wire was placed through the needle into the right atrium. A 4 Amharic micropuncture sheath was placed and a 0.035 wire was advanced into the IVC. A subcutaneous tunnel was created in the right anterior chest wall by blunt dissection. A 23 cm tip to cuff 14.5 Amharic Mahurkar catheter was brought through the tunnel. The vessel tract was serially dilated. A peel-away sheath was placed in the right IJ vein and the catheter was advanced through the sheath, with its distal tip terminating in the superior right atrium. The peel-away sheath was removed. The ports were flushed and aspirated easily following placement. The catheter was sutured to the skin to secure its placement. The small jugular incision site was closed using Dermabond. Vital signs were monitored throughout the procedure by a nurse, and remained stable. The patient tolerated the procedure well and left the department in the same condition. Results: Spot radiograph of the chest demonstrates the new dialysis catheter to lie in the expected position with its tip overlying the superior right atrium. Impression: Successful, uncomplicated placement of a right internal jugular tunneled dialysis catheter using sonographic and fluoroscopic guidance and conscious sedation. Catheter is ready for immediate use. Signed by: Ced Duncan MD on 07/04/2020 2:42 PM
[2020-07-04] MEDS: MIDAZOLAM HCL 5MG/ML 10ML VIAL 100 ML IV PRN (14:53)
[2020-07-04 16:23] LABS: ABG HCO3 26 mmol/L (22-26); ABG PCO2 65 mmHg (35-45); ABG PO2 70 mmHg (80-105); ABG TCO2 27
--- NOTE | 2020-07-04 18:24 | Progress Note ---
DATE: 07/04/2020 Cardiology Progress Note SUBJECTIVE: Intubated and sedated. OBJECTIVE: VITAL SIGNS: Temperature 98.5, heart rate 77, blood pressure 125/54, respiratory rate 36, and O2 saturation 95%. GENERAL: Intubated and sedated. NECK: Supple. CHEST: Decreased breath sounds. CARDIOVASCULAR: Regular rate and rhythm. Normal S1 and S2. ABDOMEN: Soft. EXTREMITIES: Trace edema. CARDIOVASCULAR MEDICATIONS: Reviewed. Amiodarone 200 mg b.i.d. and Lovenox 30 mg subcutaneous daily. STUDIES: Reviewed. Creatinine 1.3. White blood cells 15, hemoglobin 8.5, and platelets 196. INR 1.08. AST 21, ALT 15, and alkaline phosphatase 105. ASSESSMENT AND PLAN: A 65-year-old man with acute COVID-19 infection, pneumonia, acute respiratory failure, paroxysmal atrial fibrillation, [id number] diastolic heart failure, anemia, status post PRBC transfusion, and hypertension. RECOMMEND: 1. Check fecal occult blood test. 2. Continue amiodarone. 3. If negative fecal occult blood test, advised an up titration of Lovenox 1 mg/kg for thromboembolic prevention. 4. Volume optimization per Nephrology. Mario Harris MD [employer]/MIKE /[id number]
[2020-07-04 19:48] LABS: ABG PH 7.28 (7.35-7.45)
[2020-07-04 19:49] LABS: ABG HCO3 25 mmol/L (22-26); ABG PCO2 53 mmHg (35-45); ABG PO2 70 mmHg (80-105); ABG TCO2 27
--- NOTE | 2020-07-04 21:54 | Progress Note ---
DATE: 07/04/2020 CONSULTANTS: 1. Dr. Quigley, naval gunfire liaison officer. 2. Dr. Robertson, ID. 3. Dr. Neumann, Cardiology. 4. Dr. Singh, Renal. 5. Dr. Ireland, Surgery. SUBJECTIVE: The patient remains in supine position on the vent with tracheostomy and sedated. Status post left groin HD catheter placement. PHYSICAL EXAMINATION: VITAL SIGNS: Temperature 98.8, pulse is 76, respirations 36, blood pressure 142/55, pulse ox is 90% on the vent. GENERAL: Sedated. HEENT: Vented through tracheostomy. CARDIOVASCULAR: Regular rate and rhythm. LUNGS: With decreased breath sounds. ABDOMEN: Soft and obese. NEUROLOGIC: Sedated. MUSCULOSKELETAL: Generalized edema greater in the upper extremities. SKIN: Multiple pressure ulcers. LABORATORY DATA: WBC 15.51, hemoglobin 8.5, hematocrit 28.0, and platelets 196. Sodium 136, potassium 4.6, CO2 of 24, BUN 67, creatinine 1.35, estimated GFR 53, AST 21, ALT 15, albumin 3.0. ABG; pH 7.34, pCO2 of 44, PO2 of 70, bicarb 24, total CO2 of 25. Sputum culture, Martina albicans. Chest x-ray to check right internal jugular tunneled dialysis catheter, chest x-ray is stable. IMPRESSION: 1. Acute respiratory failure due to coronavirus disease 2019 pneumonia. Status post tracheostomy, remains sedated and on the vent. 2. Leukocytosis. WBC is 15.5. Continue to monitor on antibiotics per ID. 3. Chronic anemia. Status post 1 unit of PRBC. Hemoglobin is stable. 4. Acute kidney injury. Tunneled dialysis catheter to be placed today and start dialysis per Renal. 5. Hypertension. Continue hydrochlorothiazide and hydralazine as needed. 6. Generalized edema and anasarca. Diuretics and ultrafiltration per Renal. 7. Atrial fibrillation. Now sinus rhythm, continue on amiodarone per Cardiology. 8. Diabetes. Sliding scale insulin. 9. Deep vein thrombosis prophylaxis. Continue Lovenox. PLAN: To continue current treatment, tunneled dialysis catheter placement planned today and dialysis per Renal. Vent management per naval gunfire liaison officer. Dictated by MARAH Castro Alicja Rodriguez, MD MY/MIKE /[id number]
--- NOTE | 2020-07-04 23:32 | NUR ---
infectious disease progress note Patient seen and examined chart reviewed Discussed with the medical team Patient needs intensive care unit Remains on the ventilator Multiple drugs The patient is currently not synchronized with the ventilator. His Versed is being increased to 5 mg and his fentanyl is being increased to 100 mcg. His rocuronium will be restarted. He is on a pressure control mode of ventilation at a rate of 36 with a pressure control of 36 and a PEEP of 8. His FiO2 is set at 80%. PHYSICAL EXAMINATION:basically unchanged intubated sedated VITAL SIGNS: Blood pressure is 149/54 and the saturation is 98% on the above-mentioned ventilator settings. The pulse is 74. HEENT: Shows no facial swelling or erythema. LYMPHATIC: Shows no submandibular, cervical or supraclavicular adenopathy. CARDIAC: Reveals regular rate and rhythm with normal S1 and S2. LUNGS: Auscultation of lungs reveals rhonchorous breath sounds bilaterally. There is no wheezing. ABDOMEN: Soft and nontender. There is no rebound or guarding. EXTREMITIES: Shows no leg edema or calf tenderness. There is no cyanosis or clubbing. SKIN: Shows no rashes. NEUROLOGICAL: Shows no focal abnormalities. LABORATORY DATA: White blood cell count is 15.5 and the hemoglobin is 8.5. The platelet count is 196. The BUN to creatinine ratio is 67 to 1.35. Other electrolytes are within normal limits. Albumin is 3. Blood gases; 7.34, 44, 70 and 24. RADIOGRAPHIC DATA: Chest x-ray shows continued bilateral infiltrates. IMPRESSION: 1. Acute respiratory failure. 2. Acute renal failure. 3. Viral pneumonia and COVID-19 infection. 4. Diabetes. 5. Anemia. 6. Moderate protein-calorie malnutrition. concern about aspiration continue with supportive care as ordered and follow
[2020-07-05] VITALS (25 sets, daily range): BP systolic 94–144; BP diastolic 45–56
[2020-07-05] MEDS: MIDAZOLAM HCL 5MG/ML 10ML VIAL 100 ML IV PRN ×2 (01:06→12:38)
[2020-07-05 04:36] LABS: BASOPHILS # (AUTO) 0.1 (0.0-0.1); BASOPHILS % 0.3 % (0.0-1.0); EOSINOPHILS # (AUTO) 0.2 (0.0-0.4); EOSINOPHILS % 1.1 % (0.0-6.0); HEMATOCRIT 29.5 % (38.2-49.6); HEMOGLOBIN 8.8 g/dL (14.0-18.0); LYMPHOCYTES # (AUTO) 1.2 (1.0-3.2); LYMPHOCYTES % 5.5 % (18.0-39.1); MEAN CORPUSCULAR HEMOGLOBIN 28.7 pg (28-32); MEAN CORPUSCULAR HGB CONC 29.8 g/dL (31-35); MEAN CORPUSCULAR VOLUME 96.1 fL (81-99); MONOCYTES # (AUTO) 1.2 (0.2-0.8); MONOCYTES % 5.3 % (4.4-11.3); NEUTROPHILS # (AUTO) 18.9 (2.1-6.9); NEUTROPHILS % 86.2 % (38.7-80.0); PLATELET COUNT 207 x10e3/uL (140-360); RED BLOOD COUNT 3.07 x10e6/uL (4.3-5.7)
[2020-07-05 04:56] LABS: ALBUMIN/GLOBULIN RATIO 0.7 (0.8-2.0); ANION GAP 18.1 mmol/L (8-16); CALCIUM 8.6 mg/dL (8.4-10.2); CREATININE, SERUM 1.67 mg/dL (0.72-1.25); POTASSIUM 5.1 mmol/L (3.5-5.1)
[2020-07-05] MEDS: ENOXAPARIN 30 MG/0.3 ML SYR SC SCH (05:05)
--- NOTE | 2020-07-05 07:38 | Diagnostic Imaging Report ---
TECHNIQUE: Frontal view of the chest. INDICATION: 65-year-old man with respiratory failure. COMPARISON: Chest radiograph 07/04/2020. FINDINGS: LINES/TUBES: Interval placement of a right internal jugular dual lumen dialysis catheter, the tip projects over the expected region of the high right atrium. Other lines/tubes are unchanged. LUNGS: No significant change in interstitial and airspace opacities throughout both lungs. PLEURA: No pneumothorax or significant pleural effusion. HEART AND MEDIASTINUM: The cardiomediastinal silhouette is unchanged. SOFT TISSUES AND BONES: Unremarkable. IMPRESSION: Lines/tubes as above. Otherwise, no significant change since 07/04/2020. Signed by: Coleen Pham MD on 07/05/2020 7:34 AM
[2020-07-05] MEDS: COLLAGENASE 5 GM TUBE TP SCH (08:05)
[2020-07-05] MEDS: AMIODARONE HCL 200 MG TAB PO SCH ×2 (08:05→17:10)
[2020-07-05] MEDS: FENTANYL 2000MCG/NS 250 250 ML IV PRN ×2 (08:06→22:50)
[2020-07-05 08:09] LABS: ABG HCO3 24 mmol/L (22-26); ABG PCO2 47 mmHg (35-45); ABG PH 7.32 (7.35-7.45); ABG PO2 83 mmHg (80-105); ABG TCO2 25
[2020-07-05] MEDS ORDERED: VANCOMYCIN 1GM/NS 250 ML 250 ML IV ONE (09:15)
--- NOTE | 2020-07-05 09:36 | Progress Note ---
DATE: SUBJECTIVE: The patient is currently on a PRVC mode of ventilation with pressure control. His rate is set at 36. The PEEP is set at 5 and the pressure above PEEP is 36. The FiO2 is 85%. The patient had a tunneled dialysis catheter placed yesterday. His temporary catheter was removed. He remains on Versed and fentanyl as well as rocuronium. He is continuing to receive enteral feedings. PHYSICAL EXAMINATION: VITAL SIGNS: Blood pressure is 112/45 and the pulse is 65. Saturation is 96%. He is on the above-mentioned settings. HEENT: Shows no facial swelling or erythema. LYMPHATIC: Shows no submandibular, cervical, or supraclavicular adenopathy. CARDIAC: Reveals regular rate and rhythm with normal S1 and S2. LUNGS: Auscultation of lungs shows decreased breath sounds at the bases. There is no wheezing. ABDOMEN: Soft and nontender. There is no rebound or guarding. EXTREMITIES: Shows no leg edema or calf tenderness. There is no cyanosis or clubbing. SKIN: Shows no rashes. NEUROLOGICAL: Shows no focal abnormalities. LABORATORY DATA: Blood gases; 7.32, 47, 83 and 24. The BUN to creatinine ratio is 95 to 1.67. The carbon dioxide is 21 and the sodium is 133. The albumin is 3.0. The white blood cell count is 21.8 and the hemoglobin is 8.8. The platelet count is 207. IMPRESSION: 1. Acute respiratory failure. 2. Acute renal failure. 3. Viral pneumonia and COVID-19 infection. 4. Diabetes. 5. Anemia. 6. Moderate protein-calorie malnutrition. PLAN: 1. The patient is scheduled for dialysis again today. 2. Repeat cultures including sputum, blood and urine because of leukocytosis. 3. Rocuronium and vancomycin until culture results are available. 4. Continue Versed and fentanyl along with rocuronium. 5. Continue enteral feedings. 6. Continue to monitor blood sugars and adjust insulin as needed. 7. Case discussed with nursing, Respiratory, Infectious Disease, and family. Manuel Quigley MD LM/MODL /[id number]
[2020-07-05 09:45] LABS: CLARITY,URINE HAZY (CLEAR); COLOR,URINE YELLOW (YELLOW); LEUKOCYTE ESTERASE ,URINE MODERATE (NEGATIVE); NITRITE,URINE NEGATIVE (NEGATIVE)
[2020-07-05 09:46] LABS: BILIRUBIN,URINE SMALL (NEGATIVE); KETONES,URINE NEGATIVE (NEGATIVE); PROTEIN,URINE DIPSTICK 2+ (NEGATIVE); URINE UROBILINOGEN 1 mg/dL (0.2 - 1)
[2020-07-05 09:54] LABS: AMORPHOUS SEDIMENT,URINE FEW (FEW); BACTERIA,URINE MODERATE /HPF; EPITHELIAL CELLS,URINE FEW /LPF
[2020-07-05 09:55] LABS: MUCUS,URINE FEW (RARE)
[2020-07-05] MEDS ORDERED: MEROPENEM 1GM 100 ML IV SCH (10:00)
--- NOTE | 2020-07-05 10:01 | Progress Note ---
DATE: 07/05/2020 Cardiology Progress Note SUBJECTIVE: Intubated, sedated. OBJECTIVE: VITAL SIGNS: Temperature 97.3, heart rate 65, respiratory rate 36, blood pressure 112/45, O2 saturation 96% on vent support. GENERAL: On vent support, sedated. NECK: Trach in place, connected to vent. CHEST: With rales. Decreased breath sounds. CARDIOVASCULAR: Regular rate and rhythm. Normal S1 and S2. Telemetry, sinus rhythm. ABDOMEN: Soft. Bowel sounds positive. EXTREMITIES: 1+ edema. CARDIOVASCULAR MEDICATIONS: Reviewed. Amiodarone 200 mg b.i.d., Lovenox 30 mg daily. STUDIES: Reviewed. White blood cells trending up at 21.8, hemoglobin 8.8, platelets 207. Sodium 133, potassium 5.1, chloride 99, bicarbonate 21, BUN 95, creatinine 1.6, glucose 116, calcium 8.6, total protein 7.3, albumin 3. Fecal occult blood test ordered and pending. ASSESSMENT AND PLAN: COVID-19 infection, community-acquired pneumonia, acute respiratory failure, anemia, acute renal failure, atrial fibrillation, acute on chronic diastolic heart failure. RECOMMEND: 1. Continue current cardiovascular medications. 2. If fecal occult blood test is negative, consider adjustment of anticoagulation to therapeutic dosing. Mario Harris MD [facility]/MODL /[id number]
--- NOTE | 2020-07-05 14:30 | Progress Note ---
DATE: 07/05/2020 CONSULTANTS: 1. Dr. Quigley, folder tier. 2. Dr. Robertson, ID. 3. Dr. Neumann, Cardiology. 4. Dr. Singh, Renal. 5. Dr. Ireland, Surgery. SUBJECTIVE: The patient remains sedated, tracheostomy on the vent. Tunneled dialysis catheter has been placed and pending for dialysis later today. PHYSICAL EXAMINATION: VITAL SIGNS: Temperature 98.2, pulse is 71, respirations 36, blood pressure 107/51, and pulse ox 91% on the vent. GENERAL: Sedated. HEENT: Tracheostomy indented. CARDIOVASCULAR: Regular rate and rhythm. LUNGS: With decreased breath sounds. ABDOMEN: Soft and obese. NEUROLOGIC: Sedated. MUSCULOSKELETAL: Generalized edema greater in the upper extremities. SKIN: Multiple pressure ulcers. LABORATORY DATA: WBC 21.87, hemoglobin 8.8, hematocrit 29.5, and platelet 207. Sodium 133, potassium 5.1, CO2 of 21, BUN 95, creatinine 1.67, estimated GFR is 41, AST 20, and ALT 12. Blood culture is pending. IMPRESSION: 1. Acute respiratory failure due to coronavirus disease-19 pneumonia. Status post tracheostomy, remains on the vent and sedated. 2. Leukocytosis. WBC is 21.8. He was given vancomycin x1, and started on Merrem per Infectious Disease. Blood and urine culture sent. 3. Chronic anemia. Status post 1 unit of PRBC. Hemoglobin is stable. 4. Acute kidney injury. Tunneled catheter has been placed, dialysis is planned for later today per Renal. 5. Hypertension. Continue hydrochlorothiazide and hydralazine as needed. 6. Generalized edema and anasarca. Diuretics and dialysis per Renal. 7. Atrial fibrillation. Now sinus rhythm. Continue on amiodarone per Cardiology. 8. Diabetes. Sliding scale insulin as needed. 9. Deep vein thrombosis prophylaxis. Continue with Lovenox. PLAN: To continue current treatment, HD catheter has been placed for dialysis today. Cultures have been sent and restarted on antibiotics. Dictated by MARAH Castro Yiching Anmol Rodriguez MD MY/MODL /[id number]
--- NOTE | 2020-07-05 16:20 | Progress Note ---
DATE: 07/05/2020 Renal Progress Note SUBJECTIVE: Events over the past 24 hours have been noted. The patient underwent placement of a tunneled dialysis catheter yesterday in the right chest wall area. The patient remains on the ventilator. PHYSICAL EXAMINATION: VITAL SIGNS: Blood pressure 109/55, pulse 102, respirations 36. GENERAL: The patient remains on the ventilator. HEENT: The patient has a trach. The patient has a tunneled dialysis catheter in the right chest wall area. CARDIOVASCULAR: Regular rate and rhythm. LUNGS: Crackles and high-pitched squeals bilaterally. ABDOMEN: Decreased bowel sounds. EXTREMITIES: The patient has edema of the arms. LABORATORY RESULTS: White count is 21.87. Hemoglobin and hematocrit 8.8 and 29.5 respectively. Sodium 133, potassium 5.1, chloride 99, bicarbonate 21, BUN and creatinine 95 and 1.6, calcium 8.6. IMPRESSION: 1. Acute kidney injury. 2. COVID pneumonia. 3. Respiratory failure. 4. Azotemia. PLAN: The patient will be getting dialysis today. The patient usually is hypotensive during dialysis, so we gave some albumin predialysis to help support the blood pressure. My goal is to remove 2 L. We will dialyze him with 2 potassium bath, 2.5 calcium 3.5 hours, ultrafilter roughly about 2 L. We will dialyze through the new tunneled dialysis catheter. Albumin can be used to support blood pressure if needed. We have come down a little bit on the FiO2 at 85%. The patient's prognosis still remains significantly guarded. Ather MD LAWRENCE Singh/MODL /[id number]
[2020-07-05] MEDS ORDERED: METRONIDAZOLE 500MG/NS 100ML 100 ML IV SCH (17:30)
[2020-07-05] MEDS: ROCURONIUM BROMIDE 1,250 MG in SODIUM CHLORIDE 0.9% 250ML 125 ML IV SCH (18:20)
--- NOTE | 2020-07-05 18:45 | NUR ---
Report received. Assumed care. Assessment done. See interventions. Trach to vent. Vent settings: 85% FIO2, Rate 36, PEEP 5 & PC above PEEP 36. NGT with Vital HP at 45ml/hr with H2O 200 Q4H. IVs: Fentanyl @125mcg/hr or 15.6 ml/hr, Verseed @ 4mg/hr or 8ml/hr & Jasper @ .007mg/kg/min or 4ml/hr.
[2020-07-05] MEDS ORDERED: IOPAMIDOL 370 MG/ML 200 ML INFUS..BTL INJ ONE (20:30)
[2020-07-05] MEDS ORDERED: SODIUM CHLORIDE 0.9% 50ML 50 ML ONE (20:30)
[2020-07-05] MEDS: CEFEPIME 1GM/NS 0.9% 50 ML 50 ML IV SCH (20:30)
--- NOTE | 2020-07-05 21:00 | NUR ---
To radiology for CT & CTA.
--- NOTE | 2020-07-05 21:30 | NUR ---
Returned from radiology. Lisa procedure well.
--- NOTE | 2020-07-05 21:40 | Diagnostic Imaging Report ---
EXAM: CT Chest WITH contrast 07/05/2020 8:50 PM INDICATION: Rule out pulmonary embolism COMPARISON: TECHNIQUE: Chest was scanned utilizing a multidetector helical scanner from the lung apex through the level of the adrenal glands with administration of IV contrast. Coronal and sagittal reformations were obtained. Routine protocol was performed. IV CONTRAST: 100 mL of Omnipaque 300 COMPLICATIONS: None RADIATION DOSE: Total DLP: 2162.7 mGy*cm Estimated effective dose: (DLP x 0.014 x size factor) mSv CTDIvol has been reviewed. It is below the limits set by the Radiation Protocol Committee (RPC). Dose modulation, iterative reconstruction, and/or weight based adjustment of the mA/kV was utilized to reduce the radiation dose to as low as reasonably achievable. FINDINGS: Normal thyroid. Tracheostomy tube in the upper trachea. Enteric tube courses into the stomach. Right PICC and right subclavian catheter terminates at the cavoatrial junction. Prominent mildly enlarged mediastinal lymph nodes including a 1.0 cm right paratracheal lymph node, likely reactive. The heart is not enlarged. No pericardial effusion. The thoracic aorta is normal caliber. Mild to moderate multivessel coronary artery calcifications. Main pulmonary artery is borderline enlarged measuring 3.2 cm in axial diameter. Limited evaluation of the subsegmental pulmonary arteries due to patient arm positioning and respiratory motion. No pulmonary emboli to the segmental level. Diffuse groundglass and patchy consolidative opacities throughout both lungs with bibasilar consolidation with air bronchograms. Small tracheal diverticulum. Otherwise, the airways are patent. IMPRESSION: 1. Mildly limited exam. No convincing findings of pulmonary emboli to the segmental level. 2. Diffuse bilateral pneumonia/viral pneumonia. 3. Borderline enlarged pulmonary artery. Correlate for pulmonary hypertension. Signed by: Krish Gerardo MD on 07/05/2020 9:37 PM
--- NOTE | 2020-07-05 21:45 | Diagnostic Imaging Report ---
EXAMINATION: Head CT without contrast. HISTORY:Hypoxia, rule out stroke. COMPARISON:None. TECHNIQUE: Multidetector axial images were obtained from the foramen magnum to the vertex without contrast. The images were reconstructed using brain and bone algorithms. Thin section brain images were reformatted into coronal and sagittal planes. Dose modulation, iterative reconstruction, and/or weight based adjustment of the mA/kV was utilized to reduce the radiation dose to as low as reasonably achievable. Intravenous contrast: None IMAGE QUALITY: Suboptimal evaluation particularly at the level of skull base and posterior fossa structures due to streak artifacts. FINDINGS: Skull/scalp: No lytic or blastic. lesions. No surgical changes. Parenchyma: No abnormal density. No acute hemorrhage, mass or acute major vascular territorial infarct. Arteries: No density suggestive of thrombosis. Mild atherosclerosis in bilateral carotid siphon. Dural sinuses: No abnormal density suggestive of thrombosis. Ventricles: No hydrocephalus or displacement. Extra-axial spaces: No abnormal density. Brain volume: Normal for age. Craniocervical junction: No mass, Chiari malformation, or basilar invagination. Sella: No mass. Paranasal/mastoid sinuses: Complete opacification of bilateral mastoid air cells. IMPRESSION: No acute intracranial abnormality. Signed by: Dr. Rosita Mcdonald M.D. on 07/05/2020 9:41 PM
--- NOTE | 2020-07-05 22:02 | Diagnostic Imaging Report ---
EXAM: CT Abdomen and Pelvis WITH contrast INDICATION: Rule out colitis COMPARISON: None. TECHNIQUE: Abdomen and pelvis were scanned utilizing a multidetector helical scanner from the lung base to the pubic symphysis after administration of IV contrast. Coronal and sagittal reformations were obtained. Routine protocol was performed. Scan was performed when during portal venous phase. IV CONTRAST: 100 mL of Isovue 370 ORAL CONTRAST: Isovue COMPLICATIONS: None RADIATION DOSE: Total DLP: 2162.78 mGy*cm Estimated effective dose: (DLP x 0.015 x size factor) mSv CTDIvol has been reviewed. It is below the limits set by the Radiation Protocol Committee (RPC). Dose modulation, iterative reconstruction, and/or weight based adjustment of the mA/kV was utilized to reduce the radiation dose to as low as reasonably achievable. FINDINGS: Mildly limited evaluation of the abdomen and pelvis due to streak artifact from overlying metallic devices and arm positioning. LINES and TUBES: Enteric tube terminates in the proximal third segment of duodenum. Vizcarra catheter in a decompressed urinary bladder. LOWER THORAX: CT chest CT report from today. HEPATOBILIARY: No significant abnormality. GALLBLADDER: Distended gallbladder. No wall thickening or pericholecystic fluid. Layering hyperdensity within the gallbladder may represent sludge versus vicarious excretion of contrast. SPLEEN: No splenomegaly. PANCREAS: No focal masses or ductal dilatation. ADRENALS: No adrenal nodules KIDNEYS/URETERS: Kidneys enhance symmetrically. No hydronephrosis. No cystic or solid mass lesions. No stones. GI TRACT: Short segment pericolonic fluid and inflammatory changes with thickening of the adjacent lateral conal fascia adjacent to a short segment of the descending colon. No discrete diverticuli in this region. Small volume free fluid in the in the pelvis. PELVIC ORGANS/BLADDER: Luminal air within the urinary bladder likely secondary to Vizcarra catheter placement LYMPH NODES: No lymphadenopathy. VESSELS: Mixed plaque at the origin of the SMA. Limited evaluation of proximal SMA due to severe streak artifact in this region. The vessel is patent distally. PERITONEUM / RETROPERITONEUM: Small volume free fluid in the dependent pelvis. No free air. BONES: There are degenerative changes in the spine. SOFT TISSUES: Small fat-containing inguinal hernias bilaterally. IMPRESSION: 1. Focal pericolonic inflammatory changes and small volume fluid surrounding a short segment of mid descending colon concerning for colitis including infectious, inflammatory, and ischemic etiologies. 2. Small volume free fluid in the dependent pelvis.] Signed by: Krish Gerardo MD on 07/05/2020 9:59 PM
[2020-07-06] VITALS (27 sets, daily range): BP systolic 76–138; BP diastolic 40–66
[2020-07-06] MEDS: METRONIDAZOLE 500MG/NS 100ML 100 ML IV SCH ×4 (00:27→17:51)
[2020-07-06] MEDS: MIDAZOLAM HCL 5MG/ML 10ML VIAL 100 ML IV PRN ×2 (00:28→11:06)
--- NOTE | 2020-07-06 03:53 | Progress Note ---
DATE: 07/05/2020 SUBJECTIVE: Mr. Bob remains in intensive care unit, extremely ill. PHYSICAL EXAMINATION: GENERAL: He is intubated and sedated. VITAL SIGNS: Stable, currently afebrile. HEENT: He is not icteric. NECK: Supple. CHEST: Few rhonchi. HEART: S1 and S2. ABDOMEN: Soft. Bowel sounds present. EXTREMITIES: No edema. SKIN: No rash. LABORATORY DATA: His blood gas reviewed. His vent setting reviewed. Discussed with medical team. His WBC is 21. IMPRESSION: Leukocytosis is worse, seems to be clinically a little bit stable. I am going to send for CT of abdomen and pelvis. CTA to rule out pulmonary embolism as well as CT of the head to rule out cerebrovascular accident, respiratory failure, renal failure, diabetes mellitus, and neuropathy. Prognosis remains extremely poor. Discussed with medical team. We will reassess. MD JOSE Garay/MIKE /[id number]
[2020-07-06 04:50] LABS: BASOPHILS % 0.2 % (0.0-1.0); EOSINOPHILS # (AUTO) 0.2 (0.0-0.4); EOSINOPHILS % 1.3 % (0.0-6.0); HEMATOCRIT 27.3 % (38.2-49.6); HEMOGLOBIN 7.9 g/dL (14.0-18.0); LYMPHOCYTES # (AUTO) 1.6 (1.0-3.2); LYMPHOCYTES % 8.2 % (18.0-39.1); MEAN CORPUSCULAR HEMOGLOBIN 28.4 pg (28-32); MEAN CORPUSCULAR HGB CONC 28.9 g/dL (31-35); MEAN CORPUSCULAR VOLUME 98.2 fL (81-99); MONOCYTES # (AUTO) 1.2 (0.2-0.8); MONOCYTES % 6.5 % (4.4-11.3); NEUTROPHILS # (AUTO) 15.7 (2.1-6.9); NEUTROPHILS % 82.3 % (38.7-80.0); PLATELET COUNT 220 x10e3/uL (140-360); RED BLOOD COUNT 2.78 x10e6/uL (4.3-5.7); RED CELL DISTRIBUTION WIDTH 17.2 % (11.7-14.4)
[2020-07-06 05:18] LABS: ALBUMIN/GLOBULIN RATIO 0.8 (0.8-2.0); ANION GAP 15.1 mmol/L (8-16); CREATININE, SERUM 1.22 mg/dL (0.72-1.25); POTASSIUM 4.1 mmol/L (3.5-5.1)
--- NOTE | 2020-07-06 05:30 | NUR ---
Cleaned for large amt loose brown stool.
[2020-07-06] MEDS: ENOXAPARIN 30 MG/0.3 ML SYR SC SCH (05:37)
[2020-07-06] MEDS: CEFEPIME 1GM/NS 0.9% 50 ML 50 ML IV SCH ×2 (05:39→19:57)
[2020-07-06 07:33] LABS: ABG HCO3 26 mmol/L (22-26); ABG PCO2 53 mmHg (35-45); ABG PH 7.31 (7.35-7.45); ABG PO2 52 mmHg (80-105); ABG TCO2 28
[2020-07-06] MEDS: AMIODARONE HCL 200 MG TAB PO SCH ×2 (08:08→17:50)
--- NOTE | 2020-07-06 08:58 | Diagnostic Imaging Report ---
EXAMINATION: CHEST SINGLE (PORTABLE) INDICATION: Respiratory failure COMPARISON: Chest CT 07/05/2020 chest radiograph 07/05/2020 FINDINGS: LINES/TUBES:Support lines and tubes unchanged. LUNGS:The lungs are moderately inflated. Unchanged bilateral diffuse interstitial opacities. PLEURA:No pleural effusion or pneumothorax. MEDIASTINUM:The cardiomediastinal silhouette appears unchanged in size and shape. BONES/SOFT TISSUES:No acute osseous injury. ABDOMEN:No free air under the diaphragm. IMPRESSION: No significant interval change. Signed by: Nicki Durham MD on 07/06/2020 8:55 AM
[2020-07-06] MEDS: COLLAGENASE 5 GM TUBE TP SCH (09:49)
--- NOTE | 2020-07-06 09:54 | Progress Note ---
DATE: SUBJECTIVE: The patient received dialysis yesterday. He is in the supine position. His FiO2 had to be increased this morning to 100%. Yesterday, he also had a CT scan of the chest, abdomen and pelvis. He is currently on antibiotics including cefepime, Flagyl, and vancomycin. PHYSICAL EXAMINATION: VITAL SIGNS: Blood pressure is 93/46, saturation is now 92% on a pressure control at a rate of 36 with a PEEP of 5 and pressure above PEEP of 34, and FiO2 of 100%. His rate is set at 36. HEENT: No facial swelling or erythema. He has an oral endotracheal tube. LYMPHATIC: No submandibular, cervical, or supraclavicular adenopathy. CARDIAC: Regular rate and rhythm. Normal S1, S2. LUNGS: Auscultation of lungs reveals crackles and rhonchi bilaterally. There is wheezing. ABDOMEN: Soft, nontender. There is no rebound or guarding. EXTREMITIES: No leg edema or calf tenderness. There is no cyanosis or clubbing. SKIN: No rashes. NEUROLOGICAL: No focal abnormalities. LABORATORY DATA: BUN to creatinine ratio is 55 to 1.22. Other electrolytes are within normal limits and the albumin is 3. White blood cell count is 19.04 and hemoglobin is 7.8. The platelet count is 220. RADIOGRAPHIC DATA: CT scan of the chest shows diffuse ground-glass infiltrates with some consolidation in the lower lobes. There are air bronchograms diffusely. There is no evidence of pulmonary embolism. A CT scan of the head shows no acute changes. CT scan of the abdomen and pelvis shows possible colitis indicated by some pericolonic inflammatory changes. IMPRESSION: 1. Acute respiratory failure. 2. Viral pneumonia and coronavirus disease-19 infection. 3. Acute renal failure. 4. Colitis. 5. Diabetes. 6. Anemia. 7. Moderate protein-calorie malnutrition. 8. Atrial fibrillation. PLAN: 1. Place the patient in prone position. 2. Monitor ABGs. 3. Continue current antibiotics. 4. Continue rocuronium, Versed, and fentanyl. 5. Continue enteral feedings. 6. Continue to monitor blood sugars and adjust insulin. 7. Dialysis as needed. Greater than 35 minutes in direct critical care time. Manuel Quigley MD [facility]/MODL /[id number]
--- NOTE | 2020-07-06 10:54 | Progress Note ---
DATE: 07/06/2020 Cardiology Progress Note SUBJECTIVE: Mr. Bob remains on vent support and sedated. OBJECTIVE: VITAL SIGNS: Temperature 99.8, heart rate 74, blood pressure 93/46, respiratory rate 36, O2 saturation 88%. GENERAL: Sedated. NECK: With trach connected to vent. CHEST: With rales and decreased breath sounds. CARDIOVASCULAR: Regular rate and rhythm. Normal S1 and S2. ABDOMEN: Soft. EXTREMITIES: Trace edema. CARDIOVASCULAR MEDICATIONS: Reviewed. Amiodarone 200 mg b.i.d., Lovenox 30 mg subcu daily. LABORATORY DATA: Studies reviewed. Sodium 138, potassium is 4.1, chloride 103, bicarbonate 24, BUN 55, creatinine 1.2, glucose 112. White blood cells 19, hemoglobin 7.9, platelets 220. INR 1.08. Fecal occult blood test reported positive per nursing staff. ASSESSMENT AND PLAN: A 65-year-old man with: 1. Coronavirus disease-2019, community acquired pneumonia, prolonged. 2. Acute respiratory failure, now status post trach. 3. Paroxysmal atrial fibrillation. 4. Anemia with fecal occult blood test positive. 5. Hypertension. 6. Acute on chronic diastolic heart failure. Recommend continue current cardiovascular medications. Monitor for gross bleeding and monitor H and H. MD CHRISTINE Bal/MODL /[id number]
[2020-07-06] MEDS ORDERED: VECURONIUM BROMIDE FOR INJ 20 MG VIAL ONE (12:14)
--- NOTE | 2020-07-06 13:10 | Progress Note ---
DATE: 07/06/2020 Renal Progress Note SUBJECTIVE: Events over the past 24 hours have been noted. PHYSICAL EXAMINATION: GENERAL: The patient is in prone position now. He remains on the vent. He has a trach. He also has a new tunneled dialysis catheter. CARDIOVASCULAR: Regular rate and rhythm. LUNGS: High-pitched squeal and crackles bilaterally. ABDOMEN: Decreased bowel sounds. EXTREMITIES: Positive edema. LABORATORY RESULTS: Hemoglobin and hematocrit 7.9 and 27.3 respectively. Sodium 138, potassium 4.1, chloride 103, bicarb 24, BUN and creatinine 55 and 1.22 respectively. IMPRESSION/PLAN: 1. Acute kidney injury. 2. COVID pneumonia. 3. Respiratory failure. 4. Azotemia. The patient underwent dialysis yesterday. We removed 2-1/2 L. He tolerated the dialysis well. He will not get dialysis today. I will assess him again tomorrow. Most likely, we will end up dialyzing him tomorrow. Ather MD LAWRENCE Singh/MODL /[id number]
[2020-07-06 14:08] LABS: ABG HCO3 28 mmol/L (22-26); ABG PCO2 113 mmHg (35-45); ABG PH 7.01 (7.35-7.45); ABG PO2 133 mmHg (80-105); ABG TCO2 32
[2020-07-06 14:22] LABS: ABG HCO3 27 mmol/L (22-26); ABG PCO2 86 mmHg (35-45); ABG PH 7.11 (7.35-7.45); ABG PO2 117 mmHg (80-105); ABG TCO2 29
[2020-07-06] MEDS: FENTANYL 2000MCG/NS 250 250 ML IV PRN (14:34)
--- NOTE | 2020-07-06 17:24 | NUR ---
INFECTIOUS DISEASE PROGRESS NOTE LEIGHANN RUTHERFORD M.D SUBJECTIVE: Mr. Bob remains in intensive care unit, extremely ill. ROS: unable to obtain due to condition PHYSICAL EXAMINATION: GENERAL: He is intubated and sedated. VITAL SIGNS: Stable, currently afebrile. HEENT: He is not icteric. NECK: Supple. CHEST: Few rhonchi. HEART: S1 and S2. ABDOMEN: Soft. Bowel sounds present. EXTREMITIES: No edema. SKIN: No rash. LABORATORY DATA: reviewed RADIOLOGY: reviewed IMPRESSION: 1. Mildly limited exam. No convincing findings of pulmonary emboli to the segmental level. 2. Diffuse bilateral pneumonia/viral pneumonia. 3. Borderline enlarged pulmonary artery. Correlate for pulmonary hypertension. IMPRESSION: 1. Acute respiratory failure. 2. Viral pneumonia and coronavirus disease-19 infection. 3. Acute renal failure. 4. Colitis. 5. Diabetes. 6. Anemia. 7. Moderate protein-calorie malnutrition. 8. Atrial fibrillation. 10. Leukocytosis PLAN Prognosis remains extremely poor continue Cefepime and Flagyl for now supportive care Sakina Benedict MSN, [employer], AG[employer]- Leighann Rutherford M.D.
[2020-07-06] MEDS: ROCURONIUM BROMIDE 1,250 MG in SODIUM CHLORIDE 0.9% 250ML 125 ML IV SCH (20:30)
--- NOTE | 2020-07-06 22:17 | Progress Note ---
DATE: 07/06/2020 CONSULTANTS: 1. Dr. Quigley, materials inspector. 2. Dr. Robertson, ID. 3. Dr. Neumann, cardiology. 4. Dr. Singh, Renal. 5. Dr. Ireland, Surgery. SUBJECTIVE: The patient is seen in prone position, remains sedated and tracheostomy on the vent. No events overnight. PHYSICAL EXAMINATION: VITAL SIGNS: Temperature 99.6, pulse is 77, respirations 36, blood pressure 138/66, pulse ox is 97% on the vent. GENERAL: Sedated in prone position. HEENT: Tracheostomy. CARDIOVASCULAR: Regular rate and rhythm. LUNGS: With decreased breath sounds. ABDOMEN: Soft. NEUROLOGIC: Sedated. MUSCULOSKELETAL: Mild edema, increased in the upper extremities. SKIN: With multiple ulcers. LABORATORY DATA: WBC 19.04, hemoglobin 7.9, hematocrit 27.3, and platelets 220. Sodium 138, potassium 4.1, CO2 of 24, BUN 55, creatinine 1.22, estimated GFR is 59, glucose 112, AST 24, ALT 10, alkaline phosphate 177, albumin 3.0, globulin 3.7. ABG; pH 7.01, pCO2 of 113, PO2 of 133, bicarb 28. Stool occult positive. Chest x-ray, no significant interval change. IMPRESSION: 1. Acute respiratory failure due to coronavirus disease 2019 pneumonia. Status post tracheostomy, in prone position on the vent. 2. Leukocytosis. WBC mildly improved, 19 today. Continue on Merrem per ID. Blood culture negative so far. 3. Chronic anemia. Status post 1 unit of PRBC. Fecal occult blood is positive. We will continue to monitor. 4. Acute kidney injury. Tunneled dialysis catheter has been placed in the right subclavian and dialysis planned today again. 5. Hypertension. Continue hydrochlorothiazide and hydralazine as needed. 6. Atrial fibrillation, now normal sinus rhythm. Continue amiodarone per Cardiology. 7. Diabetes. Sliding scale insulin as needed. 8. Deep vein thrombosis prophylaxis. Continue Lovenox. PLAN: To continue current treatments. Dialysis plan later today. Currently in prone position. We will continue with antibiotics and repeat labs in a.m. Dictated by MARAH Castro MD KIM Chavez/MODL /[id number]
--- NOTE | 2020-07-06 22:40 | NUR ---
Call to Dr. Quigley re: low BP. Orders given. Albumin 25 gm IV started.
[2020-07-06] MEDS ORDERED: ALBUMIN 25% 12.5GM 0.25 GM/ML BTL IV ONE (22:45)
--- NOTE | 2020-07-06 22:50 | NUR ---
Call to Dr. Quigley. Advised of hypotension. Orders given.
--- NOTE | 2020-07-06 22:55 | NUR ---
Albumin 25gm IV given.
[2020-07-06] MEDS ORDERED: NOREPINEPHRINE 8 MG/D5W 250 ML 250 ML ONE (23:09)
--- NOTE | 2020-07-06 23:15 | NUR ---
Levophed added for BP support.
[2020-07-06 23:28] LABS: ABG PCO2 107 mmHg (35-45)
[2020-07-06 23:29] LABS: ABG HCO3 26 mmol/L (22-26); ABG PO2 116 mmHg (80-105); ABG TCO2 29
[2020-07-06] MEDS ORDERED: SODIUM BICARBONATE 8.4% SYRING 100 ML ONE ×2 (23:36→23:54)
--- NOTE | 2020-07-06 23:45 | NUR ---
Bicarb drip started at 100ml/hr.
--- NOTE | 2020-07-06 23:45 | NUR ---
RT called ABG results to Dr. Quigley. Vent changes: PC 38, Rate 38, Peep 5, & FIO2 80%.
[2020-07-06] MEDS ORDERED: DEXTROSE 5% 1,000 ML IV ONE (23:54)
[2020-07-06] MEDS: SODIUM BICARBONATE 8.4% 150 ML in DEXTROSE 5% 1,000 ML IV SCH (23:55)
[2020-07-06] MEDS ORDERED: SODIUM BICARBONATE 8.4% SYRING 50 ML ONE (23:55)
[2020-07-07] VITALS (22 sets, daily range): BP systolic 70–142; BP diastolic 37–62
[2020-07-07] MEDS ORDERED: SODIUM BICARBONATE 8.4% INJ 50 ML SYR IV STA
--- NOTE | 2020-07-07 00:30 | NUR ---
BP improved. Decreased to 5 mcg/min or 9.4ml/hr.
[2020-07-07] MEDS: MIDAZOLAM HCL 5MG/ML 10ML VIAL 100 ML IV PRN ×3 (00:44→21:25)
[2020-07-07] MEDS ORDERED: NOREPINEPHRINE IV SCH (00:45)
[2020-07-07] MEDS ORDERED: [UNRECOGNIZED DRUG - OTHER] IV SCH (00:45)
[2020-07-07] MEDS ORDERED: DEXTROSE 5% IV SCH (00:45)
[2020-07-07] MEDS: METRONIDAZOLE 500MG/NS 100ML 100 ML IV SCH ×4 (01:03→18:49)
[2020-07-07 04:54] LABS: BASOPHILS # (AUTO) 0.1 (0.0-0.1); BASOPHILS % 0.3 % (0.0-1.0); HEMATOCRIT 28.6 % (38.2-49.6); HEMOGLOBIN 8.3 g/dL (14.0-18.0); LYMPHOCYTES # (AUTO) 1.9 (1.0-3.2); LYMPHOCYTES % 8.1 % (18.0-39.1); MEAN CORPUSCULAR HEMOGLOBIN 29.3 pg (28-32); MEAN CORPUSCULAR VOLUME 101.1 fL (81-99); MONOCYTES # (AUTO) 1.6 (0.2-0.8); MONOCYTES % 6.8 % (4.4-11.3); NEUTROPHILS % 81.6 % (38.7-80.0); PLATELET COUNT 244 x10e3/uL (140-360); RED BLOOD COUNT 2.83 x10e6/uL (4.3-5.7); RED CELL DISTRIBUTION WIDTH 16.9 % (11.7-14.4)
[2020-07-07 05:25] LABS: ALBUMIN 3.4 g/dL (3.5-5.0); ALBUMIN/GLOBULIN RATIO 0.9 (0.8-2.0); ANION GAP 20.2 mmol/L (8-16); CALCIUM 8.5 mg/dL (8.4-10.2); CREATININE, SERUM 1.81 mg/dL (0.72-1.25); POTASSIUM 5.2 mmol/L (3.5-5.1)
[2020-07-07] MEDS: ENOXAPARIN SOD INJ 40 MG/0.4 ML SYR SC SCH (06:19)
[2020-07-07] MEDS: CEFEPIME 1GM/NS 0.9% 50 ML 50 ML IV SCH ×2 (06:19→18:50)
[2020-07-07] MEDS: NOREPINEPHRINE 8 MG/D5W 250 ML 250 ML IV SCH (07:41)
[2020-07-07] MEDS: AMIODARONE HCL 200 MG TAB PO SCH ×2 (08:04→16:30)
--- NOTE | 2020-07-07 09:30 | Progress Note ---
DATE: Pulmonary Critical Care Progress Note SUBJECTIVE: The patient has been in the prone position for the last 24 hours. He continues to have problems with respiratory acidosis and a high carbon dioxide. His pressure control is increased to 38 above PEEP and his respiratory rate is increased to 38. Despite this, he required a bicarbonate drip. The patient has no fevers, but his white cell count is increased. PHYSICAL EXAMINATION: VITAL SIGNS: The patient is afebrile. The blood pressure is 101/47 and pulse is 69. The saturation is 94%. He is on a pressure control mode of ventilation at a rate of 38 with a PEEP of 6 and pressure above PEEP of 38. His FiO2 is 75%. He remains on Levophed at 1 mcg. He is on Versed at 6 mg along with fentanyl at 200 and rocuronium at 0.01. HEENT: Shows some facial swelling and some decubitus breakdown in the zygomatic areas. He has a tracheostomy in place. The site looks clean. He has a right-sided PICC line. CARDIAC: Reveals regular rate and rhythm with normal S1, S2. LUNGS: Auscultation of lungs reveals decreased breath sounds at the bases. There is no wheezing. ABDOMEN: Soft, nontender. There is no rebound or guarding. EXTREMITIES: Shows no leg edema or calf tenderness. There is no cyanosis or clubbing. SKIN: Shows no rashes. NEUROLOGICAL: Shows the patient to be sedated and paralyzed. LABORATORY DATA: White blood cell count is 23.3 and hemoglobin is 8.3. The platelet count is 244,000. BUN to creatinine ratio is 81 to 1.81. The potassium is 5.2. Other electrolytes are within normal limits and the albumin is 3.4. Microbiological data shows negative cultures. RADIOGRAPHIC DATA: CT scan of abdomen and pelvis shows focal pericolonic inflammatory changes and small volume fluid surrounding short-segment in the mid descending colon concerning for colitis. CT scan of the chest shows diffuse bilateral ground-glass infiltrates. There are some opacifications at the bases. There are air bronchograms throughout the study. CT scan of the brain shows no acute abnormalities. IMPRESSION: 1. Acute respiratory failure. 2. Viral pneumonia and COVID-19 infection. 3. Acute renal failure. 4. Colitis. 5. Diabetes. 6. Anemia. 7. Moderate protein-calorie malnutrition. 8. Atrial fibrillation. PLAN: 1. The patient is currently on a bicarb drip. We will decrease to 75 mL an hour and repeat the ABG later today. 2. Continue current ventilator settings and monitor. Adjust ventilator as tolerated. 3. Continue Versed and fentanyl along with rocuronium. 4. Continue oral vancomycin in addition to cefepime and metronidazole. 5. Wean Levophed as tolerated. 6. Continue enteral feedings. 7. Continue to monitor and control blood sugar. 8. Continue anticoagulation. 9. Place patient back in the supine position today. Greater than 35 minutes in direct critical care time. Manuel Quigley MD [facility]/MODL /[id number]
--- NOTE | 2020-07-07 10:30 | NUR ---
Turned from prone position. Tolerated well. Will monitor.
[2020-07-07] MEDS: COLLAGENASE 5 GM TUBE TP SCH (11:16)
--- NOTE | 2020-07-07 11:36 | Diagnostic Imaging Report ---
EXAMINATION: CHEST SINGLE (PORTABLE) INDICATION: Respiratory failure COMPARISON: Chest radiograph 07/06/2020 FINDINGS: LINES/TUBES:Support lines and tubes unchanged. LUNGS:The lungs are moderately inflated. Unchanged bilateral interstitial and airspace opacities. PLEURA:No pleural effusion or pneumothorax. MEDIASTINUM:The cardiomediastinal silhouette appears normal in size and shape. BONES/SOFT TISSUES:No acute osseous injury. ABDOMEN:No free air under the diaphragm. IMPRESSION: No significant interval change. Signed by: Nicki Durham MD on 07/07/2020 11:32 AM
--- NOTE | 2020-07-07 12:00 | NUR ---
BP 116/45. Levophed turned off. Will monitor.
[2020-07-07] MEDS: VANCOMYCIN 250MG/5ML ORAL SOLN PO SCH ×2 (13:33→18:49)
[2020-07-07] MEDS: SODIUM BICARBONATE 8.4% 150 ML in DEXTROSE 5% 1,000 ML IV SCH (13:33)
--- NOTE | 2020-07-07 15:00 | Progress Note ---
DATE: 07/07/2020 Renal Progress Note SUBJECTIVE: Events over the past 24 hours have been noted. The patient in the supine position. OBJECTIVE: VITAL SIGNS: Blood pressure 98/47, pulse 67. GENERAL: The patient remains on the ventilator. He has a trach. He also has a new tunneled dialysis catheter. CARDIOVASCULAR: Regular rate and rhythm. LUNGS: High-pitched squeals and crackles bilaterally. ABDOMEN: Decreased bowel sounds. EXTREMITIES: There is edema of all extremities especially the arms. LABORATORY RESULTS: White count is 23,000. Sodium 139, potassium 5.2, chloride 100, bicarb 24, BUN and creatinine 81 and 1.8 respectively. IMPRESSION: 1. Acute kidney injury. 2. COVID pneumonia. 3. Respiratory failure. 4. Azotemia. PLAN: The patient's neck is hyperkalemic. The BUN is going up. We will dialyze the patient today. We will use 2.5 calcium. We will try to ultrafilter 2-3 L, however, the blood pressure is low, so that may limit how much we can ultrafilter. He will be dialyzed today. Ather MD [facility]/MODL /[id number]
--- NOTE | 2020-07-07 15:05 | NUR ---
Nutrition Intervention Note RD Recommendation(s) for Physician: -Pivot 1.5 is out of stock; therefore, recommend modifying formula to Vital AF 1.2 @ goal rate of 55 mL/hr (provides 1584 kcal, 99 g protein) -Pt may be fed when in prone position at goal rate in reverse Trendelenburg with HOB at 10-25 degrees -Fluid/water management per MD Plan of Care: RD following, monitoring for tolerance and adequacy, tube feed recommendation Nutrition reason for involvement: follow up RD Assessment 07/07: Follow up. Chart reviewed. TF was off per RN but will be resumed. RN stated pt had been transitioning from prone to supine position. Pivot 1.5 is out of stock; therefore, recommend modifying formula to Vital AF 1.2. RD to manage TF order per Dr. Quigley. Will continue to monitor. 07/04: Follow up. Pt remains intubated via trach, sedated, and paralyzed. No pressor support. Pt supine currently. Continues on TF of Pivot 1.5 at goal rate of 45 ml/hr, tolerating at goal rate. Pt discussed during MDR, plan for TDC placement today as pt continues to require dialysis. Current TF remains appropriate. Chart reviewed. Will continue to monitor. 06/29: Follow up. Chart reviewed. Pt remains intubated/sedated and is in the prone position per chart. Pt is tolerating tube feeding at 45 mL/hr. Current recommendations remain appropriate. Will continue to monitor. 06/26: Follow up. Chart reviewed. Pt remains intubated and sedated. Trach placement is being discussed per chart. Pt is tolerating tube feeding of Pivot at goal of 45 mL/hr which meets nutritional needs. Will continue to monitor. 06/21: Follow up. Chart reviewed. Pt had been receiving tube feeding at goal rate of 45 mL/hr per RN which meets nutritional needs. Will continue to monitor. 06/16: Follow up. Chart reviewed. Pt remains intubated and is in the supine position. Pts tube feeding is at goal rate of 45 mL/h which is meeting needs. Will continue to monitor 06/13: Follow up. Pt remains intubated and paralyzed requiring intermittent proning. Pt currently on Levophed at 8 mcg/min. TF continues to meet >75% of estimated needs. Chart reviewed. Will continue to monitor. 06/09: Follow up. Pt remains intubated and sedated. It is documented that pts tube feed is at 35 mL/hr. It is noted that pt has been in the prone position overnight. Will continue to monitor 06/06: Follow up. Pt remains intubated, sedated, and paralyzed. No pressor support. Pt continues on TF of Vital HP, infusing at 20 ml/hr at time of visit- RN unavailable to discuss rate. Pt not meeting needs with current TF > [address] Quigley regarding TF and goal rate, MD amenable to continuing goal rate while in prone position as it is not contraindicated. RD to modify TF order per MD. Chart reviewed. Will continue to monitor. 06/02: Follow up. Chart reviewed. Pt remains intubated and sedated. Pt is receiving Vital HP @ 30 mL/hr at this time - not meeting nutritional needs. Current recommendations remain appropriate. Will continue to monitor. 05/29: Follow up. Chart reviewed. Pt remains intubated and sedated. MD note indicates that pt remains in the prone position. Pt is receiving Vital HP @ 20 mL/hr at this time. Current recommendations remain appropriate. Will continue to monitor. 05/24: Follow up. Pt remains intubated and sedated, requiring to be proned- no paralytic currently. Vital HP infusing at goal rate, providing >75% of estimated needs. Chart reviewed. Current TF rec's remain appropriate. Will continue to monitor. 05/22: Follow up. Pt remains intubated, paralyzed, and sedated. TF documented as Glucerna 1.2 at 30 ml/hr currently, not meeting needs. Pt requiring proning at times. Pt with chest tubes to output. Current TF rec's remain appropriate. Chart reviewed. Will continue to monitor. 05/17: Follow up. Chart reviewed. Pt remains intubated. RN reports that pts tube feeding is at 10 mL/hr at this time and pt is in the prone position. Current recommendations remain appropriate. Will continue to monitor. 05/12: Pt was intubated yesterday and tube feeding was ordered. It is recorded that pt consumed 25% of breakfast on 05/10 and was previously consuming 50-100% of meals. Recommendations provided. Will continue to monitor. 05/09: 65 YOM admitted for hypoxia and pneumonia due to COVID-19. Pt assessed today for LOS. Attempted to call pt's room x 2, no answer- unable to obtain hx at this time. No wt loss or poor intake indicated at admit per MD notes. Pt with 50-100% intake since admit. Pt currently on Vapotherm per current respiratory status. Labs and meds reviewed. LBM 05/08, skin intact. Chart reviewed. Will continue to monitor. Principal Problems/Diagnoses: hypoxia, pneumonia due to COVID-19 PMH: HTN, HLD GI: last recorded BM 07/06- liquid stool, soft/large/round abdomen Skin: stage 2 pressure ulcer/suspected DTI left ear, stage 2 pressure ulcer bilateral cheek, stage 2 pressure ulcer lower urethral meatus Labs: 07/06: Na 139, K 5.2, Cr 1.81, BUN 81 Glu 117, AST 36 07/04: Na 136, K 4.6, BUN 67, Cr 1.35, Gluc 92, Ca 8.6 06/29: Na 134, K 5.0, BUN 66, Cr 1.14, Glu 132, Ca 8.3 06/26: Na 139, K 4.3, BUN 76, Cr 0.98, Glu 119, Ca 8.3 06/21: Na 154, K 3.5, BUN 65, Cr 0.66, Glu 144 06/16: Na 146, K 4.1, BUN 38, Cr 0.69, Glu 138, AST 35 06/13: Na 142, K 3.1, BUN 29, Cr 0.62, Gluc 123, Ca 8.8 06/09: Na 148, K 4.5, BUN 32, Cr 0.56, Glu 160 06/06: Na 147, K 3.3, BUN 22, Cr 0.62, Gluc 135, Ca 9 06/02: Na 140, K 3.5, BUN 24, Cr 0.66, Glu 116 05/29: Na 141, K 3.9, BUN 24, Cr 0.66, Glu 87, Ca 9.5 05/24: Na 147, K 3, BUN 27, Cr 0.61, Gluc 100, POC Gluc 123-126, Ca 6.3, Mg 1.5 05/22: Na 143, K 4.5, BUN 28, Cr 0.77, Gluc 122, POC Gluc 122-136 (05/17/20) Na 141, K 4.2, BUN 18, Cr 0.61, Glu 87, Ca 8.7 (05/12/20) Na 141, K 5.4, BUN 33, Cr 0.76, Glu 118, Ca 7.9 Meds: norepinephrine, antibiotic, rocuronium, fentanyl, vancomycin, heparin, mannitol Ht: 66 inches Wt: 310 lbs (07/06) questionable weight change 215.44 lbs (07/04) 200 lbs (06/29) 211 lbs (06/21) 213 lbs (06/16) 215 lbs (06/13) 211 lbs (06/08) 212 lbs (06/06) 221 lbs (06/02) 246 lbs (05/28) 218 lbs (05/09) BMI: 35.2 using weight of 218 lbs IBW: 142 lbs Malnutrition Evaluation (06/29/20) The patient does not meet criteria for a specified degree of malnutrition at this time. Energy intake: pt is meeting kcal and protein needs with current tube feed rate Weight loss: does not meet criteria- wt fluctuations since admit noted with no significant change from admit wt, likely fluid related Fat loss: none- ample skinfold thickness of upper arms, observed outside of pt room Muscle loss: none- shoulder round, observed outside of pt room Supporting Evidence: Fluid accumulation: +1 edema in extremities Functional Status: unable to evaluate- pt intubated and sedated Nutrition Prescription (Diet Order): Pivot 1.5 @ 45 mL/hr- tube feed off at this time Estimated Nutritional Needs: 2066-9411 calories/day (22-25 kcal/kg IBW) 97-129 g protein/day (1.5-2 g pro/kg IBW) Diet Adequacy: tube feeding is off at this time Tolerance: tube feeding is off at this time Diet Education Needs Assessment: Diet education is not indicated, pt is intubated Nutrition Care Level: moderate Nutrition Diagnosis: Inadequate oral intake related to acute respiratory failure/mechanical ventilation as evidenced by requiring enteral nutrition. Goal: Patient will meet 75-100% of estimated needs by follow up Progress: progressing Interventions: - Composition, Rate, Route, Recommended modifications Monitoring/Evaluation: -Total energy intake, Total protein intake, Formula/Solution, Weight change Signed: Ruth Kern RD, [place]
[2020-07-07] MEDS: FENTANYL 2000MCG/NS 250 250 ML IV PRN (15:34)
--- NOTE | 2020-07-07 16:20 | NUR ---
the patient seen and examined chart reviewed his remains in the intensive care unit intubated and sedated. No nothing new laboratory to review chart reviewed the patient has been in the prone position for the last 24 hours. He continues to have problems with respiratory acidosis and a high carbon dioxide. His pressure control is increased to 38 above PEEP and his respiratory rate is increased to 38. Despite this, he required a bicarbonate drip. The patient has no fevers, but his white cell count is increased. PHYSICAL EXAMINATION:basically unchanged VITAL SIGNS: The patient is afebrile. The blood pressure is 101/47 and pulse is 69. The saturation is 94%. He is on a pressure control mode of ventilation at a rate of 38 with a PEEP of 6 and pressure above PEEP of 38. His FiO2 is 75%. He remains on Levophed at 1 mcg. He is on Versed at 6 mg along with fentanyl at 200 and rocuronium at 0.01. HEENT: Shows some facial swelling and some decubitus breakdown in the zygomatic areas. He has a tracheostomy in place. The site looks clean. He has a right-sided PICC line. CARDIAC: Reveals regular rate and rhythm with normal S1, S2. LUNGS: Auscultation of lungs reveals decreased breath sounds at the bases. There is no wheezing. ABDOMEN: Soft, nontender. There is no rebound or guarding. EXTREMITIES: Shows no leg edema or calf tenderness. There is no cyanosis or clubbing. SKIN: Shows no rashes. NEUROLOGICAL: Shows the patient to be sedated and paralyzed. LABORATORY DATA: White blood cell count is 23.3 and hemoglobin is 8.3. The platelet count is 244,000. BUN to creatinine ratio is 81 to 1.81. The potassium is 5.2. Other electrolytes are within normal limits and the albumin is 3.4. Microbiological data shows negative cultures. RADIOGRAPHIC DATA: CT scan of abdomen and pelvis shows focal pericolonic inflammatory changes and small volume fluid surrounding short-segment in the mid descending colon concerning for colitis. CT scan of the chest shows diffuse bilateral ground-glass infiltrates. There are some opacifications at the bases. There are air bronchograms throughout the study. CT scan of the brain shows no acute abnormalities. IMPRESSION: 1. Acute respiratory failure. 2. Viral pneumonia and COVID-19 infection. 3. Acute renal failure. 4. Colitis. 5. Diabetes. 6. Anemia. 7. Moderate protein-calorie malnutrition. 8. Atrial fibrillation. continue with supportive care as ordered
[2020-07-07 19:39] LABS: ABG HCO3 26 mmol/L (22-26); ABG PCO2 56 mmHg (35-45); ABG PH 7.27 (7.35-7.45); ABG PO2 89 mmHg (80-105); ABG TCO2 28
[2020-07-07 19:40] LABS: ABG PCO2 39 mmHg (35-45); ABG PH 7.44 (7.35-7.45); ABG PO2 52 mmHg (80-105)
[2020-07-07 19:41] LABS: ABG HCO3 26 mmol/L (22-26); ABG TCO2 28
--- NOTE | 2020-07-07 21:43 | Progress Note ---
DATE: 07/07/2020 CONSULTANTS: 1. Dr. Quigley, certified solid waste facility operator. 2. Dr. Robertson, ID. 3. Dr. Neumann, Cardiology. 4. Dr. Archer, Renal. 5. Dr. Ireland, Surgery. SUBJECTIVE: The patient is seen in supine position, remains sedated on the vent with tracheostomy. No events overnight. PHYSICAL EXAMINATION: VITAL SIGNS: Temperature 97.0, pulse is 61, respirations 38, blood pressure 107/38, pulse ox is 92% on mechanical vent. GENERAL: Sedated in supine position. HEENT: Tracheostomy in place. CARDIOVASCULAR: Regular rate and rhythm. LUNGS: Decreased breath sounds. ABDOMEN: Soft. NEUROLOGIC: Sedated. MUSCULOSKELETAL: Mild edema increased in the upper extremities and face. SKIN: Multiple pressure ulcers. LABORATORY DATA: WBC 23.3, hemoglobin 8.3, hematocrit 28.6, platelet 244. Sodium 139, potassium 5.2, CO2 of 24, BUN 81, creatinine 1.81, estimated GFR is 38, calcium 8.5, AST 36, ALT 12, and alkaline phosphate 195. IMAGING: Chest x-ray no significant interval change. IMPRESSION: 1. Acute respiratory failure due to coronavirus disease-19 pneumonia. Status post tracheostomy in supine position, on vent per certified solid waste facility operator. 2. Leukocytosis. WBC is worsening at 23 today. Started on Flagyl, vancomycin p.o., and cefepime per ID. 3. Chronic anemia. Hemoglobin is stable at 8.3. 4. Acute kidney injury with hyperkalemia. Tunneled dialysis catheter in place and dialysis per Renal. 5. Hypertension. Stable on hydrochlorothiazide and hydralazine as needed. 6. Hypertension. Now sinus rhythm. Continue amiodarone per Cardiology. 7. Diabetes. Sliding scale insulin as needed. 8. Deep venous thrombosis prophylaxis. Continue Lovenox. PLAN: To continue IV antibiotics per ID, dialysis per Renal, and vent management per certified solid waste facility operator. Dictated by MARAH Castro Alicja Rodriguez MD [facility]/MODL /[id number]
[2020-07-08] VITALS (25 sets, daily range): BP systolic 105–145; BP diastolic 45–58
--- NOTE | 2020-07-08 00:08 | Progress Note ---
DATE: 07/07/2020 Cardiology Progress Note Mr. Bob remains intubated and sedated. OBJECTIVE: VITAL SIGNS: Temperature 97.1, heart rate 57, blood pressure 99/50, respiratory rate 38, O2 saturation 91%, telemetry, in sinus bradycardia. Undergoing dialysis. GENERAL: Intubated and sedated. NECK: Supple. CHEST: With rales. Decreased breath sounds. CARDIOVASCULAR: Regular rate and rhythm. Normal S1, S2. ABDOMEN: Soft. Bowel sounds positive. EXTREMITIES: Trace edema. CARDIOVASCULAR MEDICATIONS: Reviewed. Amiodarone 200 mg daily, Lovenox 40 mg daily. LABORATORY DATA: Reviewed. Sodium 139, potassium 5.2, chloride 100, bicarbonate of 24, BUN 81 and creatinine 1.8, glucose 117. White blood cells 23, hemoglobin 8.3, platelets 244. INR 1, PT 14, PTT 44. AST 36, ALT 12, alkaline phosphatase 195. ASSESSMENT AND PLAN: A 65-year-old man presents with COVID-19 infection, community-acquired pneumonia, acute respiratory failure, paroxysmal atrial fibrillation, and anemia. RECOMMENDATIONS: Further evaluation for his recurrent infection, blood pressure lower than seen in the last couple of days, remains in sinus rhythm. We will decrease amiodarone to 200 mg daily. Fecal occult blood test positive. No gross bleeding. However, H and H stable. Continue Lovenox at current DVT prophylaxis dose. At this point, not increasing anticoagulation to therapeutic dosing due to fecal occult blood test positive. MD CHRISTINE Bal/MIKE /[id number]
[2020-07-08] MEDS: METRONIDAZOLE 500MG/NS 100ML 100 ML IV SCH ×5 (00:14→23:45)
[2020-07-08] MEDS: VANCOMYCIN 250MG/5ML ORAL SOLN PO SCH ×5 (00:14→23:45)
[2020-07-08] MEDS: FENTANYL 2000MCG/NS 250 250 ML IV PRN ×3 (03:26→21:14)
[2020-07-08] MEDS: CEFEPIME 1GM/NS 0.9% 50 ML 50 ML IV SCH ×2 (05:49→17:55)
[2020-07-08] MEDS: MIDAZOLAM HCL 5MG/ML 10ML VIAL 100 ML IV PRN ×3 (05:49→23:27)
[2020-07-08 05:50] LABS: BASOPHILS # (AUTO) 0.1 (0.0-0.1); BASOPHILS % 0.4 % (0.0-1.0); EOSINOPHILS # (AUTO) 0.4 (0.0-0.4); EOSINOPHILS % 2.3 % (0.0-6.0); HEMATOCRIT 25.6 % (38.2-49.6); HEMOGLOBIN 7.8 g/dL (14.0-18.0); LYMPHOCYTES # (AUTO) 1.6 (1.0-3.2); LYMPHOCYTES % 8.8 % (18.0-39.1); MEAN CORPUSCULAR HEMOGLOBIN 28.3 pg (28-32); MEAN CORPUSCULAR HGB CONC 30.5 g/dL (31-35); MEAN CORPUSCULAR VOLUME 92.8 fL (81-99); MONOCYTES # (AUTO) 1.1 (0.2-0.8); MONOCYTES % 6.1 % (4.4-11.3); NEUTROPHILS # (AUTO) 14.9 (2.1-6.9); NEUTROPHILS % 79.6 % (38.7-80.0); PLATELET COUNT 223 x10e3/uL (140-360); RED BLOOD COUNT 2.76 x10e6/uL (4.3-5.7); RED CELL DISTRIBUTION WIDTH 17.4 % (11.7-14.4)
[2020-07-08] MEDS: ENOXAPARIN SOD INJ 40 MG/0.4 ML SYR SC SCH (05:50)
[2020-07-08] MEDS: ROCURONIUM BROMIDE 1,250 MG in SODIUM CHLORIDE 0.9% 250ML 125 ML IV SCH ×3 (05:50→16:42)
[2020-07-08] MEDS: SODIUM BICARBONATE 8.4% 150 ML in DEXTROSE 5% 1,000 ML IV SCH (05:50)
[2020-07-08 06:11] LABS: ALANINE AMINOTRANSFERASE 9 IU/L (0-55); ALBUMIN 2.8 g/dL (3.5-5.0); ALBUMIN/GLOBULIN RATIO 0.8 (0.8-2.0); ALKALINE PHOSPHATASE 163 IU/L (40-150); BLOOD UREA NITROGEN 44 mg/dL (7-26); BUN/CREATININE RATIO 39 (6-25); CALCIUM 7.7 mg/dL (8.4-10.2); CARBON DIOXIDE 26 mmol/L (22-29); CHLORIDE 100 mmol/L (98-107); CREATININE, SERUM 1.12 mg/dL (0.72-1.25); EST GLOMERULAR FILTRATION RATE > 60 ML/MIN (60-); GLUCOSE 106 mg/dL (74-118); SODIUM 138 mmol/L (136-145)
[2020-07-08 06:19] LABS: ANION GAP 15.3 mmol/L (8-16)
[2020-07-08 06:27] LABS: POTASSIUM 3.3 mmol/L (3.5-5.1)
[2020-07-08] MEDS: NOREPINEPHRINE 8 MG/D5W 250 ML 250 ML IV SCH (07:00)
--- NOTE | 2020-07-08 07:27 | Diagnostic Imaging Report ---
EXAMINATION: CHEST SINGLE (PORTABLE) INDICATION: ^resp failure ^[id number] ^0530 COMPARISON: Chest radiograph 07/07/2020 and 07/06/2020, chest CT 07/05/2020 FINDINGS: TUBES and LINES: Unchanged position of endotracheal tube and right-sided tunnel dual-lumen hemodialysis catheter with tip at the right atrium. Redemonstrated enteric tube coursing through the mediastinum with tip not in the field of view. LUNGS: Unchanged bilateral interstitial and airspace opacities. Mildly increased right infrahilar consolidation. PLEURA: No pleural effusion or pneumothorax. HEART AND MEDIASTINUM: The cardiomediastinal silhouette is unchanged. BONES AND SOFT TISSUES: No acute osseous lesion. Soft tissues are unremarkable. IMPRESSION: 1. Unchanged position of support lines and tubes as above. 2. Redemonstrated bilateral interstitial and airspace opacities with mildly increased right infrahilar consolidation, may represent worsening pneumonia or atelectasis. Signed by: Dr. Kilo Quigley M.D. on 07/08/2020 7:24 AM
[2020-07-08] MEDS: COLLAGENASE 5 GM TUBE TP SCH (08:49)
[2020-07-08] MEDS: AMIODARONE HCL 200 MG TAB PO SCH (08:50)
--- NOTE | 2020-07-08 09:06 | NUR ---
infectious disease Progress note Patient seen and examined patient remains in intensive care unit extremely L vent setting review chart reviewed his physical examination basically unchanged The patient is afebrile. The patient is currently in a supine position. He is currently on a pressure control mode of ventilation. He remains on Versed and fentanyl as well as rocuronium. PHYSICAL EXAMINATION: VITAL SIGNS: Blood pressure is 124/49, saturation is 97% on FiO2 of 95. The current ventilator settings are pressure control with a rate of 38 and a pressure above PEEP of 34. PEEP is set at 6 and FiO2 is 90%. HEENT: Shows no facial swelling or erythema. LYMPHATIC: Shows no submandibular, cervical, or supraclavicular adenopathy. CARDIAC: Reveals regular rate and rhythm with normal S1 and S2. LUNGS: Auscultation of lungs reveals clear crackles at the bases. There is no wheezing. ABDOMEN: Soft and nontender. There is no rebound or guarding. EXTREMITIES: Shows no leg edema or calf tenderness. There is no cyanosis or clubbing. SKIN: Shows no rashes. NEUROLOGICAL: Shows no focal abnormalities. LABORATORY DATA: White blood cell count is 18.6 and hemoglobin is 7.8. The platelet count is 223. The BUN to creatinine ratio is 44 to 1.12 and the potassium is 3.3. The other electrolytes are within normal limits. Albumin is 2.8. IMPRESSION: 1. Acute respiratory failure. 2. Viral pneumonia and COVID-19 infection. 3. Acute renal failure. 4. Colitis. 5. Diabetes. 6. Atrial fibrillation. 7. Moderate protein-calorie malnutrition continue as ordered
[2020-07-08 09:16] LABS: ABG HCO3 28 mmol/L (22-26); ABG PCO2 42 mmHg (35-45); ABG PH 7.42 (7.35-7.45); ABG PO2 69 mmHg (80-105); ABG TCO2 29
--- NOTE | 2020-07-08 11:54 | Progress Note ---
DATE: 07/08/2020 CONSULTANTS: 1. Dr. Quigley, visual designer. 2. Dr. Robertson, ID. 3. Dr. Neumann, cardiology. 4. Dr. Archer, Renal. 5. Dr. Ireland, Surgery. SUBJECTIVE: The patient is in supine position. Tracheostomy in place. Vented and sedated. Status post dialysis yesterday. No events overnight. PHYSICAL EXAMINATION: VITAL SIGNS: Temperature 97.9, pulse is 58, respirations 38, blood pressure 124/49, and pulse ox 97% on the vent. GENERAL: Sedated and vented. HEENT: Tracheostomy in place. CARDIOVASCULAR: Sinus rona. Regular rate. LUNGS: Decreased breath sounds. ABDOMEN: Soft and obese. NEUROLOGIC: Sedated. MUSCULOSKELETAL: Mild edema in the lower extremities and greater in upper extremities. SKIN: Multiple pressure ulcers noted in the body. LABORATORY DATA: WBC 18.65, hemoglobin 7.8, hematocrit 25.6, and platelet 223. Sodium 138, potassium 3.3, CO2 26, BUN 44, creatinine 1.12, estimated GFR is greater than 60, and calcium 7.7. AST 26, ALT 9, and alkaline phosphate 163. ABGs this morning; pH 7.42, pCO2 42, PO2 69, and bicarb 28. Chest x-ray demonstrated bilateral interstitial and airspace opacities with mild increased right infrahilar consolidation, may represent worsening pneumonia or atelectasis. IMPRESSION: 1. Acute respiratory failure due to COVID-19 pneumonia. Status post tracheostomy, vented. Continue antibiotics per ID. 2. Leukocytosis. WBC is 18.60. We will continue on cefepime, Flagyl, and vancomycin p.o. 3. Chronic anemia. Hemoglobin is 7.8. 4. Acute kidney injury, status post dialysis yesterday. Creatinine is improved 1.1. 5. Hypertension, stable on hydrochlorothiazide and hydralazine as needed. 6. Atrial fibrillation. Now sinus rhythm/sinus rona, on amiodarone 200 mg p.o. daily per Cardiology. 7. Diabetes. Sliding scale insulin as needed. 8. Deep vein thrombosis prophylaxis. Continue Lovenox subcutaneous. PLAN: Continue IV antibiotics per ID. Dialysis per Renal and vent management per visual designer. Dictated by MARAH Castro Stacyching Anmol Rodriguez MD [facility]/MODL /[id number] Seen and examined, agree with the findings and plan as documented by MARAH Esqueda. PANCHITO
--- NOTE | 2020-07-08 12:15 | Progress Note ---
DATE: SUBJECTIVE: The patient is afebrile. The patient is currently in a supine position. He is currently on a pressure control mode of ventilation. He remains on Versed and fentanyl as well as rocuronium. PHYSICAL EXAMINATION: VITAL SIGNS: Blood pressure is 124/49, saturation is 97% on FiO2 of 95. The current ventilator settings are pressure control with a rate of 38 and a pressure above PEEP of 34. PEEP is set at 6 and FiO2 is 90%. HEENT: Shows no facial swelling or erythema. LYMPHATIC: Shows no submandibular, cervical, or supraclavicular adenopathy. CARDIAC: Reveals regular rate and rhythm with normal S1 and S2. LUNGS: Auscultation of lungs reveals clear crackles at the bases. There is no wheezing. ABDOMEN: Soft and nontender. There is no rebound or guarding. EXTREMITIES: Shows no leg edema or calf tenderness. There is no cyanosis or clubbing. SKIN: Shows no rashes. NEUROLOGICAL: Shows no focal abnormalities. LABORATORY DATA: White blood cell count is 18.6 and hemoglobin is 7.8. The platelet count is 223. The BUN to creatinine ratio is 44 to 1.12 and the potassium is 3.3. The other electrolytes are within normal limits. Albumin is 2.8. IMPRESSION: 1. Acute respiratory failure. 2. Viral pneumonia and COVID-19 infection. 3. Acute renal failure. 4. Colitis. 5. Diabetes. 6. Atrial fibrillation. 7. Moderate protein-calorie malnutrition. PLAN: 1. Continue current ventilator settings and repeat ABG later this afternoon. 2. Continue to wean off bicarb drip. 3. Continue Versed and fentanyl along with rocuronium. 4. Continue current antibiotics. 5. Enteral feedings. 6. Dialysis as needed. 7. Continue to monitor and control blood sugars. Greater than 35 minutes in direct critical care time. Manuel Quigley MD [facility]/MODL /[id number]
--- NOTE | 2020-07-08 13:16 | NUR ---
INFECTIOUS DISEASE PROGRESS NOTE LEIGHANN RUTHERFORD M.D SUBJECTIVE: Mr. Bob remains in intensive care unit, extremely ill. ROS: unable to obtain due to condition D/W ICU team PHYSICAL EXAMINATION: GENERAL: He is intubated and sedated. VITAL SIGNS: critically ill, currently afebrile. HEENT: He is not icteric. NECK: Supple. no JVD CHEST: Few rhonchi. HEART: S1 and S2. ABDOMEN: Soft. Bowel sounds present. EXTREMITIES: Edema, no joint swelling SKIN: No rash, normal temperature LABORATORY DATA: reviewed RADIOLOGY: reviewed IMPRESSION: 1. Acute respiratory failure. 2. Viral pneumonia and coronavirus disease-19 infection. 3. Acute renal failure. 4. Colitis. 5. Diabetes. 6. Anemia. 7. Moderate protein-calorie malnutrition. 8. Atrial fibrillation. 10. Leukocytosis PLAN Prognosis remains extremely poor continue Cefepime and Flagyl Yeast in the sputum cx, added Diflucan supportive care, attempting to wean bicarb gtt HD PRN Sakina Benedict MSN, SECURITIES ADVISER, AGACNP-BC Leighann Rutherford M.D.
[2020-07-08] MEDS: FLUCONAZOLE 200 MG/100 ML 100 ML IV SCH (13:44)
[2020-07-08] MEDS ORDERED: POTASSIUM CHLORIDE 20MEQ/15ML UDC NG NR (14:30)
[2020-07-08 16:58] LABS: ABG HCO3 28 mmol/L (22-26); ABG PCO2 47 mmHg (35-45); ABG PH 7.38 (7.35-7.45); ABG PO2 66 mmHg (80-105); ABG TCO2 29
--- NOTE | 2020-07-08 17:11 | Progress Note ---
DATE: 07/08/2020 Renal Progress Note SUBJECTIVE: Events over the past 24 hours have been noted. The patient is supine. The patient remains on a ventilator. He is on low-dose Levophed. The I's and O's over the past 24 hours yesterday with dialysis about 2.5 L was removed. It is hard to know how much urine output the patient had and look like he only had 60 mL in the last 24 hours, but I am not really sure of that. It cannot be really elucidated complete. PHYSICAL EXAMINATION: VITAL SIGNS: Blood pressure 137/51, respiration 38, pulse 64, afebrile. GENERAL: The patient is on the ventilator. HEENT: The patient has a trach. The patient has a tunneled dialysis catheter in the right chest wall area. CARDIOVASCULAR: Regular rate and rhythm. LUNGS: Decreased breath sounds. ABDOMEN: Decreased bowel sounds. EXTREMITIES: Edema especially of the arms. LABORATORY RESULTS: Sodium 138, potassium 3.3, chloride 100, bicarb 26, BUN and creatinine 44 and 1.12 respectively. IMPRESSION: 1. Acute kidney injury. 2. COVID pneumonia. 3. Respiratory failure. 4. Hypokalemia. PLAN: The patient underwent dialysis yesterday and 2.5 L were ultrafiltrated. The patient tolerated the dialysis well. The patient is on some bicarb fluid, I will go ahead and stop that, so we do not have to ultrafilter so much the next time also. From a metabolic standpoint, he is not acidotic at this time. He is hypokalemic. I will replace it with 40 mEq of KCl through the feeding tube. There is no need for dialysis today and bicarb fluids will be stopped. Ather MD LAWRENCE Singh/MODL /[id number]
--- NOTE | 2020-07-08 21:41 | Progress Note ---
DATE: 07/08/2020 Cardiology Progress Note SUBJECTIVE: The patient remains intubated and sedated. OBJECTIVE: VITAL SIGNS: Show a blood pressure of 98/48 mmHg with a heart rate of 58, temperature is 97.1, respiratory rate is 38, oxygen saturation is 91%. The patient is undergoing dialysis. GENERAL: Intubated, sedated. CHEST: Crackles posteriorly and decreased breath sounds. CARDIOVASCULAR: Regular rate and rhythm. No murmurs heard. ABDOMEN: Soft. EXTREMITIES: Trace edema. CARDIOVASCULAR MEDICATIONS: Reviewed. LABORATORY DATA: Show a white blood cell count of 18.65 thousand, this is decreased from 23.3 thousand yesterday, hemoglobin is 7.8, decreased from 8.3 yesterday, hematocrit is 25.6. His platelet count is 223,000. His sodium is 138, potassium is 3.3, chloride is 100, bicarb is 26, BUN is 44, creatinine is 1.12. His glucose is 106. His liver tests are within normal reference range. His albumin is 2.8. His most recent blood gas this afternoon shows a pH of 7.38, pCO2 of 47, PO2 of 66, bicarb 28, oxygen saturation is 92% and the FiO2 is 90%. ASSESSMENT AND PLAN: 1. COVID-19 infection and associated viral pneumonia. 2. Acute respiratory failure requiring prolonged ventilatory support. 3. Paroxysmal atrial fibrillation, now sinus rhythm. 4. Anemia. PLAN: 1. To continue the amiodarone, which was decreased to 200 mg daily due to low blood pressure. 2. Chronic anticoagulation, remains the same dose due to fecal occult positive test for fecal occult blood. 3. Acute respiratory failure as per Pulmonary and Critical Care Medicine. 4. Hypertension not on pressors. Lo Rodriguez MD [facility]/MODL /[id number]
[2020-07-09] VITALS (25 sets, daily range): BP systolic 101–136; BP diastolic 42–56
[2020-07-09] MEDS: FENTANYL 2000MCG/NS 250 250 ML IV PRN ×2 (04:19→20:46)
[2020-07-09] MEDS: METRONIDAZOLE 500MG/NS 100ML 100 ML IV SCH ×3 (05:10→17:56)
[2020-07-09 05:45] LABS: BASOPHILS # (AUTO) 0.1 (0.0-0.1); BASOPHILS % 0.3 % (0.0-1.0); EOSINOPHILS # (AUTO) 0.6 (0.0-0.4); EOSINOPHILS % 3.2 % (0.0-6.0); HEMATOCRIT 27.9 % (38.2-49.6); HEMOGLOBIN 8.4 g/dL (14.0-18.0); LYMPHOCYTES # (AUTO) 1.7 (1.0-3.2); MEAN CORPUSCULAR HEMOGLOBIN 28.6 pg (28-32); MEAN CORPUSCULAR HGB CONC 30.1 g/dL (31-35); MEAN CORPUSCULAR VOLUME 94.9 fL (81-99); MONOCYTES # (AUTO) 1.4 (0.2-0.8); MONOCYTES % 7.1 % (4.4-11.3); NEUTROPHILS % 78.1 % (38.7-80.0); PLATELET COUNT 242 x10e3/uL (140-360); RED BLOOD COUNT 2.94 x10e6/uL (4.3-5.7); RED CELL DISTRIBUTION WIDTH 17.5 % (11.7-14.4)
[2020-07-09 06:08] LABS: ALBUMIN 2.7 g/dL (3.5-5.0); ALBUMIN/GLOBULIN RATIO 0.8 (0.8-2.0); ANION GAP 16.9 mmol/L (8-16); CALCIUM 7.8 mg/dL (8.4-10.2); CREATININE, SERUM 1.38 mg/dL (0.72-1.25); POTASSIUM 3.9 mmol/L (3.5-5.1)
[2020-07-09] MEDS: ENOXAPARIN SOD INJ 40 MG/0.4 ML SYR SC SCH (06:20)
[2020-07-09] MEDS: VANCOMYCIN 250MG/5ML ORAL SOLN PO SCH ×3 (06:20→17:56)
[2020-07-09] MEDS: CEFEPIME 1GM/NS 0.9% 50 ML 50 ML IV SCH ×2 (06:20→17:56)
--- NOTE | 2020-07-09 06:49 | Diagnostic Imaging Report ---
EXAMINATION: CHEST SINGLE (PORTABLE) INDICATION: resp failure COMPARISON: None FINDINGS: Unchanged tracheostomy tube, right IJ dual-lumen central venous catheter, and enteric tube right Right PICC tip projects over the distal SVC. Unchanged diffuse bilateral interstitial and patchy lung opacities. Unchanged consolidative opacity in the right infrahilar region, similar to yesterday. No pneumothorax. No definite pleural effusion. IMPRESSION: No significant change. Signed by: Krish Gerardo MD on 07/09/2020 6:46 AM
[2020-07-09] MEDS: NOREPINEPHRINE 8 MG/D5W 250 ML 250 ML IV SCH (07:00)
[2020-07-09] MEDS: COLLAGENASE 5 GM TUBE TP SCH (07:57)
[2020-07-09] MEDS: AMIODARONE HCL 200 MG TAB PO SCH (07:57)
[2020-07-09] MEDS: MIDAZOLAM HCL 5MG/ML 10ML VIAL 100 ML IV PRN (07:58)
[2020-07-09] MEDS ORDERED: ALBUTEROL/IPRATROPIUM 3 ML NEB NEB PRN (08:30)
[2020-07-09] MEDS ORDERED: ACETYLCYSTEINE 20% INHAL SOLN 30 ML VIAL INH ONE (08:30)
--- NOTE | 2020-07-09 09:38 | Progress Note ---
DATE: SUBJECTIVE: The patient is now off the bicarbonate drip. His pH has improved. He remains on a pressure control mode of ventilation at a rate of 38 with a PEEP of 8 and pressure above PEEP of 34. The FiO2 is set at 95%. He remains on Levophed at 0.5 mcg. He has more secretions and has required additional suctioning. PHYSICAL EXAMINATION: VITAL SIGNS: The blood pressure is 124/51; O2 saturation is 91%, the FiO2 is set at 95%; and the pulse is 71. HEENT: Shows no facial swelling or erythema. LYMPHATIC: Shows no submandibular, cervical, or supraclavicular adenopathy. CARDIAC: Reveals regular rate and rhythm with normal S1, S2. LUNGS: Auscultation of lungs showed rhonchi and crackles at the bases. There is no wheezing. ABDOMEN: Soft, nontender. There is no rebound or guarding. EXTREMITIES: Shows no leg edema or calf tenderness. There is no cyanosis or clubbing. SKIN: Shows no rashes. NEUROLOGIC: Shows no focal abnormalities. The patient is sedated on Versed and fentanyl as well as low-dose rocuronium at 0.006. LABORATORY DATA: White blood cell count is 19.2, hemoglobin is 8.4, and the platelet count is 242. The BUN to creatinine ratio is 54 to 1.38. Other electrolytes are within normal limits and the albumin is 2.7. RADIOGRAPHIC DATA: Chest x-ray shows bilateral infiltrates with no significant change. IMPRESSION: 1. Acute respiratory failure. 2. Acute renal failure. 3. Viral pneumonia, COVID-19 infection. 4. Colitis. 5. Diabetes. 6. Moderate protein-calorie malnutrition. 7. Diabetes. PLAN: 1. Continue current ventilator settings. Monitor ABGs. 2. Wean off Levophed. 3. Continue Versed and fentanyl along with rocuronium. 4. Mucomyst today with more aggressive suctioning. 5. Continue enteral feedings. 6. Consider placing the patient in prone position. 7. Dialysis as needed. 8. Continue to monitor blood sugars. Greater than 35 minutes in direct critical care time. Manuel Quigley MD [facility]/MODL /[id number]
[2020-07-09 10:09] LABS: ABG HCO3 28 mmol/L (22-26); ABG PCO2 51 mmHg (35-45); ABG PH 7.34 (7.35-7.45); ABG PO2 52 mmHg (80-105); ABG TCO2 29
[2020-07-09] MEDS ORDERED: ACETYLCYSTEINE 200 MG/ML 4ML VIAL INH NR (11:00)
[2020-07-09] MEDS: FLUCONAZOLE 200 MG/100 ML 100 ML IV SCH (12:34)
--- NOTE | 2020-07-09 14:55 | Progress Note ---
DATE: 07/09/2020 Renal Progress Note SUBJECTIVE: Events over the past 24 hours have been noted and the patient is now in a prone position. PHYSICAL EXAMINATION: VITAL SIGNS: Blood pressure 122/46. The patient is on Levophed 0.5. GENERAL: The patient is in the prone position. He is on the vent. He has a trach. The patient has a tunneled dialysis catheter in the right chest wall area. CARDIOVASCULAR: Regular rate and rhythm. LUNGS: High-pitched squeals and crackles bilaterally. ABDOMEN: Decreased bowel sounds. EXTREMITIES: The patient has edema of the upper body and arms. LAB RESULTS: Sodium 137, potassium 3.9, chloride 109, bicarbonate 26, BUN and creatinine 54 and 1.38 respectively, calcium 7.8. Chest x-ray is as noted. Blood gas, pH 7.34, pCO2 51, PO2 52, bicarb 28, and that is on 95% FiO2. IMPRESSION: 1. Acute kidney injury. 2. COVID pneumonia. 3. Respiratory failure. 4. Borderline hypotension. The patient's intake and output for the last 24 hours are 4276 in and 60 out. He has positive 4 L and he is requiring 100% FiO2. He is in the prone position. I will have him ultrafilter today. We will try to take off maybe 2 to 3.5 L as he tolerates by blood pressure. He will be ultrafiltered today and his numbers are going up. Tomorrow he will also need a dialysis/ultrafiltration session. Ather MD LAWRENCE Singh/MIKE /[id number]
--- NOTE | 2020-07-09 15:00 | NUR ---
infectious disease progress note patient seen and examined and chart reviewed events noted A data reviewed The patient is afebrile. The patient is currently in a supine position. He is currently on a pressure control mode of ventilation. He remains on Versed and fentanyl as well as rocuronium. PHYSICAL EXAMINATION: VITAL SIGNS: Blood pressure is 124/49, saturation is 97% on FiO2 of 95. The current ventilator settings are pressure control with a rate of 38 and a pressure above PEEP of 34. PEEP is set at 6 and FiO2 is 90%. HEENT: Shows no facial swelling or erythema. LYMPHATIC: Shows no submandibular, cervical, or supraclavicular adenopathy. CARDIAC: Reveals regular rate and rhythm with normal S1 and S2. LUNGS: Auscultation of lungs reveals clear crackles at the bases. There is no wheezing. ABDOMEN: Soft and nontender. There is no rebound or guarding. EXTREMITIES: Shows no leg edema or calf tenderness. There is no cyanosis or clubbing. SKIN: Shows no rashes. NEUROLOGICAL: Shows no focal abnormalities. LABORATORY DATA: White blood cell count is 18.6 and hemoglobin is 7.8. The platelet count is 223. The BUN to creatinine ratio is 44 to 1.12 and the potassium is 3.3. The other electrolytes are within normal limits. Albumin is 2.8. IMPRESSION: 1. Acute respiratory failure. 2. Viral pneumonia and COVID-19 infection. 3. Acute renal failure. 4. Colitis. 5. Diabetes. 6. Atrial fibrillation. 7. Moderate protein-calorie malnutritio
--- NOTE | 2020-07-09 22:35 | Progress Note ---
DATE: 07/09/2020 SUBJECTIVE: Intubated, sedated, and cannot give history. OBJECTIVE: VITAL SIGNS: Temperature 96.6, pulse 67, respiratory rate 38, blood pressure 115/47. GENERAL: Sedated. SKIN: No rash. HEENT: Normal conjunctivae. NECK: Tracheostomy present. LUNGS: Decreased breath sounds. HEART: Regular rate and rhythm. Normal S1, S2. GI: Abdomen is soft, nondistended. NEUROLOGIC: Sedated. PSYCHIATRIC: Sedated. LABORATORY DATA: White count 19, hemoglobin 8.4, platelet count 242, creatinine 1.38. ASSESSMENT/PLAN: 1. Mxwfy-ls-[id number] respiratory failure due to coronavirus disease-2019 pneumonia, status post tracheostomy. We will continue vent management per electronics engineer and continue antibiotics per Infectious Disease specialist. 2. Acute kidney injury, dialysis dependent. Nephrology is assisting. 3. Paroxysmal atrial fibrillation, currently sinus rhythm. Continue amiodarone per Cardiology. 4. Gastrointestinal and deep vein thrombosis prophylaxes. Continue Lovenox. MD ASHWIN Chavez/MIKE /[id number]
[2020-07-10] VITALS (24 sets, daily range): BP systolic 105–153; BP diastolic 41–59
[2020-07-10] MEDS: METRONIDAZOLE 500MG/NS 100ML 100 ML IV SCH ×4 (00:29→18:07)
[2020-07-10] MEDS: VANCOMYCIN 250MG/5ML ORAL SOLN PO SCH ×4 (00:29→17:09)
[2020-07-10] MEDS: MIDAZOLAM HCL 5MG/ML 10ML VIAL 100 ML IV PRN ×3 (00:45→18:33)
--- NOTE | 2020-07-10 00:51 | Progress Note ---
DATE: 07/09/2020 Cardiology Progress Note SUBJECTIVE: The patient remains intubated, sedated, and paralyzed. The patient is on the vent in pressure control mode. His FiO2 is 95%, PEEP of 8. He is on Levophed very low dose 0.5 mcg per minute. PHYSICAL EXAMINATION: VITAL SIGNS: His blood pressure is 114/48 with a heart rate of 70, pulse ox shows 99% saturation on the vent settings of the FiO2 100%. GENERAL: The patient is intubated, sedated, and paralyzed. He is in prone position. Undergoing hemodialysis. He is also receiving enteral feedings. CHEST: Crackles posteriorly. CARDIOVASCULAR: Regular rate and rhythm. Normal S1, S2. ABDOMEN: Soft. EXTREMITIES: No leg edema. CARDIOVASCULAR MEDICATIONS: Reviewed. LABORATORY DATA: White blood cell count of 19,000, hemoglobin is 8.4, hematocrit is 28. The platelet count is 242,000. His sodium is 137, potassium is 3.9, chloride is 98, bicarb is 26. His creatinine is 1.38 and BUN is 16.9, glucose is 102. His liver tests are within reference range. His albumin is 2.7. ASSESSMENT: 1. Coronavirus disease-2019 infection associated viral pneumonia. 2. Acute respiratory failure, requiring prolonged ventilatory support. 3. Paroxysmal atrial fibrillation, now sinus rhythm. 4. Anemia, stable. PLAN: 1. Continue amiodarone via enteral tube 200 mg daily due to relatively low blood pressure. 2. Chronic anticoagulation and no change due to positive fecal occult blood. 3. Acute respiratory failure and prolonged ventilatory support as per Pulmonary and Critical Care Medicine. 4. Hypertension, on Levophed, being weaned. Lo Rodriguez MD [facility]/MODL /[id number]
[2020-07-10] MEDS: FENTANYL 2000MCG/NS 250 250 ML IV PRN ×2 (05:11→15:06)
[2020-07-10] MEDS: ENOXAPARIN SOD INJ 40 MG/0.4 ML SYR SC SCH (05:12)
[2020-07-10 05:32] LABS: BASOPHILS # (AUTO) 0.1 (0.0-0.1); BASOPHILS % 0.3 % (0.0-1.0); EOSINOPHILS # (AUTO) 0.3 (0.0-0.4); EOSINOPHILS % 1.2 % (0.0-6.0); HEMATOCRIT 29.5 % (38.2-49.6); HEMOGLOBIN 8.6 g/dL (14.0-18.0); LYMPHOCYTES # (AUTO) 1.2 (1.0-3.2); LYMPHOCYTES % 4.7 % (18.0-39.1); MEAN CORPUSCULAR HEMOGLOBIN 29.9 pg (28-32); MEAN CORPUSCULAR HGB CONC 29.2 g/dL (31-35); MEAN CORPUSCULAR VOLUME 102.4 fL (81-99); MONOCYTES # (AUTO) 1.3 (0.2-0.8); MONOCYTES % 5.4 % (4.4-11.3); NEUTROPHILS # (AUTO) 21.1 (2.1-6.9); NEUTROPHILS % 86.4 % (38.7-80.0); PLATELET COUNT 197 x10e3/uL (140-360); RED BLOOD COUNT 2.88 x10e6/uL (4.3-5.7); RED CELL DISTRIBUTION WIDTH 17.3 % (11.7-14.4)
[2020-07-10 05:54] LABS: ALBUMIN 2.8 g/dL (3.5-5.0); ALBUMIN/GLOBULIN RATIO 0.7 (0.8-2.0); ANION GAP 15.3 mmol/L (8-16); CALCIUM 8.2 mg/dL (8.4-10.2); CREATININE, SERUM 1.61 mg/dL (0.72-1.25); POTASSIUM 4.3 mmol/L (3.5-5.1)
[2020-07-10] MEDS: CEFEPIME 1GM/NS 0.9% 50 ML 50 ML IV SCH ×2 (06:45→18:55)
--- NOTE | 2020-07-10 07:00 | NUR ---
Chair documented in Turn Q2H flowsheet to denote proned status.
[2020-07-10 07:43] LABS: ABG HCO3 30 mmol/L (22-26); ABG PCO2 85 mmHg (35-45); ABG PH 7.15 (7.35-7.45); ABG PO2 164 mmHg (80-105); ABG TCO2 32
[2020-07-10] MEDS: ROCURONIUM BROMIDE 1,250 MG in SODIUM CHLORIDE 0.9% 250ML 125 ML IV SCH (07:56)
[2020-07-10 08:12] LABS: BAND NEUTROPHILS % (MANUAL) 4 %; EOSINOPHILS % (MANUAL) 2 % (0-7); LYMPHOCYTES % (MANUAL) 5 % (19-48); MONOCYTES % (MANUAL) 6 % (3.4-9.0); NEUTROPHILS % (MANUAL) 83 % (40-74)
[2020-07-10 08:13] LABS: POLYCHROMASIA FEW; RBC MORPHOLOGY COMMENT ABNORMAL; TOXIC GRANULATION SLIGHT
[2020-07-10 08:14] LABS: PLATELET ESTIMATE ADEQUATE; PLATELET MORPHOLOGY COMMENT NORMAL
[2020-07-10] MEDS: NOREPINEPHRINE 8 MG/D5W 250 ML 250 ML IV SCH (08:22)
[2020-07-10] MEDS: AMIODARONE HCL 200 MG TAB PO SCH (08:22)
[2020-07-10] MEDS: SODIUM BICARBONATE 8.4% SYRING 150 ML in DEXTROSE 5% 1,000 ML IV SCH (09:43)
[2020-07-10] MEDS: COLLAGENASE 5 GM TUBE TP SCH (09:43)
--- NOTE | 2020-07-10 10:03 | Progress Note ---
DATE: SUBJECTIVE: The patient remains on a PRVC mode of ventilation. He is currently on pressure control at a rate of 38. His pressure above PEEP is set at 36 and his PEEP is set at 6. His FiO2 is set at 85%. He is now on Levophed at 4 mcg. He remains on Versed, fentanyl, and rocuronium. PHYSICAL EXAMINATION: VITAL SIGNS: The blood pressure is 107/40 on low-dose Levophed. The heart rate is 75. He is on a current ventilator settings and the saturation is 98%. HEENT: Shows no facial swelling or erythema. LYMPHATIC: Shows no submandibular, cervical, or supraclavicular adenopathy. There is a tracheostomy. The site looks clean. There is a right PICC line. There is an A-line. CARDIAC: Reveals regular rate and rhythm. Normal S1, S2. LUNGS: Auscultation of lungs reveals rhonchorous breath sounds bilaterally. There is no wheezing. ABDOMEN: Soft and nontender. There is no rebound or guarding. EXTREMITIES: Shows no leg edema or calf tenderness. There is no cyanosis or clubbing. SKIN: Shows no rashes. NEUROLOGICAL: Shows the patient to be sedated. LABORATORY DATA: White blood cell count is 24.4 and hemoglobin is 8.6. The platelet count is 197,000. The RPD-sj-nituswvpba ratio is 61 to 1.61. The other electrolytes are within normal limits and the albumin is 2.8. RADIOGRAPHIC DATA: Chest x-ray shows bilateral infiltrates. IMPRESSION: 1. Acute respiratory failure. 2. Acute renal failure. 3. Viral pneumonia and COVID-19 infection. 4. Colitis. 5. Moderate protein-calorie malnutrition. 6. Diabetes. 7. Leukocytosis. PLAN: 1. Continue current ventilator settings and monitor ABGs. 2. Wean off Levophed. 3. Continue Versed and fentanyl along with rocuronium. 4. Continue current antibiotics. 5. Dialysis, scheduled again for today. Greater than 35 minutes in direct critical care time. Manuel Quigley MD [facility]/MODL /[id number]
--- NOTE | 2020-07-10 10:51 | NUR ---
INFECTIOUS DISEASE PROGRESS NOTE LEIGHANN RUTHERFORD M.D SUBJECTIVE: Mr. Bob remains in intensive care unit, extremely ill. ROS: unable to obtain due to condition D/W ICU team PHYSICAL EXAMINATION: GENERAL: intubated and sedated. VITAL SIGNS: critically ill, currently afebrile. HEENT: He is not icteric. NECK: Supple. no JVD CHEST: Few rhonchi. HEART: S1 and S2. ABDOMEN: Soft. Bowel sounds present. EXTREMITIES: Edema, no joint swelling SKIN: No rash, normal temperature LABORATORY DATA: reviewed RADIOLOGY: reviewed IMPRESSION: 1. Acute respiratory failure. 2. Viral pneumonia and coronavirus disease-19 infection. 3. Acute renal failure. 4. Colitis. 5. Diabetes. 6. Anemia. 7. Moderate protein-calorie malnutrition. 8. Atrial fibrillation. 10. Leukocytosis PLAN Prognosis remains extremely poor continue Cefepime and Flagyl Yeast in the sputum cx, added Diflucan weaning off levophed HD planned for today Sakina Benedict MSN, INVESTMENT COUNSELOR, AGACNP-BC Leighann Rutherford M.D.
--- NOTE | 2020-07-10 13:59 | Progress Note ---
DATE: 07/10/2020 Renal Progress Note SUBJECTIVE: Events over the past 24 hours have been noted. The patient is prone position. OBJECTIVE: VITAL SIGNS: Blood pressure 119/48, pulse 73. GENERAL: Yesterday, the patient underwent ultrafiltration 2-1/2 L were removed. The patient's urine output is essentially negligible about maybe 110 mL in a 24-hour period. The patient is in the prone position. He is on the vent. He has a trach. He has a tunneled dialysis catheter in the right chest wall area. CARDIOVASCULAR: Regular rate and rhythm. LUNGS: Decreased breath sound bases bilaterally, also high-pitched wheals and crackles bilaterally. ABDOMEN: Decreased bowel sounds. EXTREMITIES: The patient has edema of his upper body and arms. LABORATORY RESULTS: Sodium 134, potassium 4.3, chloride 96, bicarb 27, BUN and creatinine 61 and 1.6 respectively, calcium 8.2. IMPRESSION/PLAN: 1. Acute kidney injury. 2. COVID pneumonia. 3. Respiratory failure. 4. Borderline hypotension. The patient underwent ultrafiltration yesterday. We removed 2.5 L. The FiO2 has been able to go down to 85%. We will have him undergo dialysis today also. We will try to remove another maybe 2-3 L as tolerated. Ather MD LAWRENCE Singh/MIKE /[id number]
[2020-07-10] MEDS: FLUCONAZOLE 200 MG/100 ML 100 ML IV SCH (14:07)
[2020-07-10] MEDS ORDERED: HEPARIN SOD (PORCINE) 1000 UNIT/ML SDV IV PRN (14:30)
[2020-07-10 16:09] LABS: ABG HCO3 29 mmol/L (22-26); ABG PCO2 75 mmHg (35-45); ABG PH 7.19 (7.35-7.45); ABG PO2 89 mmHg (80-105); ABG TCO2 31
--- NOTE | 2020-07-10 19:01 | NUR ---
ABG results called to Dr Quigley. New orders received and carried out.
--- NOTE | 2020-07-10 21:20 | Progress Note ---
DATE: 07/10/2020 SUBJECTIVE: Sedated, cannot give any history. OBJECTIVE: VITAL SIGNS: Temperature 98.3, pulse 75, respiratory rate 38, and blood pressure 112/45. GENERAL: Sedated, in prone position. SKIN: No rash. HEENT: Normal conjunctiva. LUNGS: Decreased breath sounds. HEART: Regular rate and rhythm. Normal S1 and S2. GI: Abdomen is soft and nondistended. NEUROLOGIC: Sedated. PSYCHIATRIC: Sedated. LABORATORY DATA: White count 24, hemoglobin 8.6, and platelet count 197. Sodium 134 and creatinine 1.61. ASSESSMENT AND PLAN: 1. Ukrrx-kh-bduircg respiratory failure due to COVID-19 pneumonia, status post tracheostomy. We will continue vent management per pattern hanger and continue antibiotics per Infectious Disease specialist. His white count is higher today. 2. Acute kidney injury, dialysis-dependent. Plan per Nephrology. 3. Paroxysmal atrial fibrillation, currently in sinus rhythm. We will continue amiodarone per Cardiology. 4. Gastrointestinal and deep venous thrombosis prophylaxis. Continue Lovenox. 5. Disposition. LTAC evaluation. Stacyching MD ASHWIN Jean-Baptiste/MODL /[id number]
[2020-07-11] VITALS (23 sets, daily range): BP systolic 105–153; BP diastolic 46–67
[2020-07-11] MEDS: NOREPINEPHRINE 8 MG/D5W 250 ML 250 ML IV SCH
[2020-07-11] MEDS: VANCOMYCIN 250MG/5ML ORAL SOLN PO SCH ×4 (00:50→18:42)
[2020-07-11] MEDS: METRONIDAZOLE 500MG/NS 100ML 100 ML IV SCH ×2 (00:50→05:05)
[2020-07-11] MEDS: FENTANYL 2000MCG/NS 250 250 ML IV PRN ×3 (01:02→21:03)
--- NOTE | 2020-07-11 01:21 | Progress Note ---
DATE: 07/10/2020 Cardiology Progress Note SUBJECTIVE: The patient remains on ventilator, the pressure control mode. His PEEP is little lower now at 6. His FiO2 is currently 85%. The patient is on pressors and Levophed. He is also receiving bicarb infusion for persistent acidosis. He is sedated with midazolam and fentanyl. PHYSICAL EXAMINATION: VITAL SIGNS: His blood pressure is 115/45 mmHg with a heart rate of 76 beats per minute. His FiO2 is 85% and saturation is 99%. HEENT: The patient's head and neck shows normocephalic, atraumatic. LUNGS: Rhonchi posteriorly. CARDIAC: Regular rate and rhythm. Normal S1, S2. No murmurs heard. ABDOMEN: Soft. EXTREMITIES: No leg edema. MEDICATIONS: Reviewed. LABORATORY DATA: Shows a white blood cell count 24.4, which has increased from the day before. The hemoglobin is 8.6, hematocrit is 29.5, and platelets are at 197,000. Hemoglobin and hematocrit are stable. His sodium is 134, potassium 4.3, chloride 96, bicarb 27, BUN is 61 and creatinine 1.6, glucose 107. His blood gas this morning showed persistent acidosis with a pH of 7.19, pCO2 75, PO2 89, bicarb 29, and oxygen saturation 94% with an FiO2 of 85%. The chest x-ray shows bilateral infiltrates. ASSESSMENT AND PLAN: 1. COVID-19 infection and associated viral pneumonia. 2. Acute respiratory failure requiring prolonged ventilatory support. 3. Paroxysmal atrial fibrillation. 4. Anemia. PLAN: 1. Continue amiodarone p.o. 200 mg daily. 2. No changing in the chronic anticoagulation. 3. Acute respiratory failure and prolonged ventilatory support as per Pulmonary and Critical Care Medicine. 4. The patient is still requiring pressors to support his blood pressure. Lo Rodriguez MD [facility]/MODL /[id number]
[2020-07-11] MEDS: MIDAZOLAM HCL 5MG/ML 10ML VIAL 100 ML IV PRN ×3 (03:00→19:27)
[2020-07-11] MEDS: SODIUM BICARBONATE 8.4% SYRING 150 ML in DEXTROSE 5% 1,000 ML IV SCH ×2 (03:30→17:01)
[2020-07-11] MEDS: ENOXAPARIN SOD INJ 40 MG/0.4 ML SYR SC SCH (05:30)
[2020-07-11 05:46] LABS: BASOPHILS # (AUTO) 0.1 (0.0-0.1); BASOPHILS % 0.3 % (0.0-1.0); EOSINOPHILS # (AUTO) 0.1 (0.0-0.4); EOSINOPHILS % 0.5 % (0.0-6.0); HEMATOCRIT 30.7 % (38.2-49.6); HEMOGLOBIN 8.7 g/dL (14.0-18.0); LYMPHOCYTES % 3.9 % (18.0-39.1); MEAN CORPUSCULAR HEMOGLOBIN 28.5 pg (28-32); MEAN CORPUSCULAR HGB CONC 28.3 g/dL (31-35); MEAN CORPUSCULAR VOLUME 100.7 fL (81-99); MONOCYTES # (AUTO) 1.8 (0.2-0.8); MONOCYTES % 6.9 % (4.4-11.3); NEUTROPHILS # (AUTO) 22.7 (2.1-6.9); NEUTROPHILS % 85.3 % (38.7-80.0); PLATELET COUNT 239 x10e3/uL (140-360); RED BLOOD COUNT 3.05 x10e6/uL (4.3-5.7); RED CELL DISTRIBUTION WIDTH 16.9 % (11.7-14.4)
[2020-07-11 05:59] LABS: ALBUMIN 2.7 g/dL (3.5-5.0); ALBUMIN/GLOBULIN RATIO 0.7 (0.8-2.0); ALKALINE PHOSPHATASE 142 IU/L (40-150); ANION GAP 15.2 mmol/L (8-16); BLOOD UREA NITROGEN 36 mg/dL (7-26); BUN/CREATININE RATIO 29 (6-25); CALCIUM 7.8 mg/dL (8.4-10.2); CARBON DIOXIDE 27 mmol/L (22-29); CHLORIDE 98 mmol/L (98-107); CREATININE, SERUM 1.26 mg/dL (0.72-1.25); EST GLOMERULAR FILTRATION RATE 57 ML/MIN (60-); GLUCOSE 156 mg/dL (74-118); POTASSIUM 4.2 mmol/L (3.5-5.1); SODIUM 136 mmol/L (136-145)
[2020-07-11 06:00] LABS: ALANINE AMINOTRANSFERASE < 6 IU/L (0-55)
[2020-07-11] MEDS: CEFEPIME 1GM/NS 0.9% 50 ML 50 ML IV SCH (06:25)
[2020-07-11 07:10] LABS: BAND NEUTROPHILS % (MANUAL) 1 %; LYMPHOCYTES % (MANUAL) 5 % (19-48); MONOCYTES % (MANUAL) 4 % (3.4-9.0); NEUTROPHILS % (MANUAL) 90 % (40-74)
[2020-07-11 07:11] LABS: ANISOCYTOSIS SLIGHT; HYPOCHROMASIA SLIGHT
[2020-07-11 07:12] LABS: PLATELET ESTIMATE ADEQUATE; PLATELET MORPHOLOGY COMMENT RARE EDTA CLUMPING; RBC MORPHOLOGY COMMENT ABNORMAL
[2020-07-11] MEDS ORDERED: SODIUM BICARBONATE 8.4% INJ 50 ML SYR IV ONE (07:15)
[2020-07-11 07:37] LABS: ABG HCO3 33 mmol/L (22-26); ABG PCO2 103 mmHg (35-45); ABG PH 7.11 (7.35-7.45); ABG PO2 153 mmHg (80-105); ABG TCO2 36
[2020-07-11] MEDS: ROCURONIUM BROMIDE 1,250 MG in SODIUM CHLORIDE 0.9% 250ML 125 ML IV SCH (08:30)
--- NOTE | 2020-07-11 09:22 | Progress Note ---
DATE: SUBJECTIVE: The patient is still in the prone position. He remains on Versed and fentanyl along with rocuronium. The patient is also on bicarb drip at 150 mL an hour and low-dose Levophed at 4 mcg. PHYSICAL EXAMINATION: VITAL SIGNS: Blood pressure is 122/48. Temperature is 97.4. Pulse is 78. He is on a PRVC mode of ventilation at a rate of 38 with a pressure above PEEP of 36 and a PEEP of 6. His FiO2 is set at 70%. HEENT: Shows no facial swelling or erythema. There is an oral endotracheal tube. There is a PICC line in the right arm. CARDIAC: Reveals tachycardia with normal S1 and S2. LUNGS: Auscultation of lungs reveals rhonchorous breath sounds bilaterally. There is no wheezing. ABDOMEN: Soft and nontender. There is no rebound or guarding. EXTREMITIES: Shows no leg edema or calf tenderness. There is no cyanosis or clubbing. SKIN: Shows no rashes. NEUROLOGICAL: Shows no focal abnormalities. The patient is sedated on Versed and fentanyl as well as rocuronium. LABORATORY DATA: White blood cell count is 26.6 and hemoglobin is 8.7. The platelet count is 239. BUN to creatinine ratio is 36 to 1.27. The other electrolytes are within normal limits. Albumin is 2.7. IMPRESSION: 1. Acute respiratory failure. 2. Acute renal failure. 3. Viral pneumonia and COVID-19 infection. 4. Colitis. 5. Moderate protein-calorie malnutrition. 6. Diabetes. 7. Leukocytosis. PLAN: 1. The patient's minute ventilation has been increased and his FiO2 has been decreased. We will repeat ABG. 2. Continue oral vancomycin along with cefepime and fluconazole. The patient is also on metronidazole. 3. Wean off Levophed. 4. Continue enteral feedings. 5. Monitor control of blood sugars. 6. Dialysis as scheduled. Greater than 35 minutes in direct critical care time apart from any procedures performed. Manuel Quigley MD [facility]/MODL /[id number]
--- NOTE | 2020-07-11 10:21 | NUR ---
PATIENT PLACED SUPINE
[2020-07-11 10:34] LABS: AMYLASE 21 U/L (25-125); LIPASE < 4 U/L (8-78)
--- NOTE | 2020-07-11 10:43 | NUR ---
ORDER RECEIVED FOR LTACH. CALL TO PT'S ; ESEQUIEL LYNN @ [phone]. NO ANSWER. CM LEFT TENA W CONTACT INFO.
[2020-07-11] MEDS: COLLAGENASE 5 GM TUBE TP SCH (10:52)
[2020-07-11] MEDS: AMIODARONE HCL 200 MG TAB PO SCH (10:52)
--- NOTE | 2020-07-11 12:28 | Progress Note ---
DATE: SUBJECTIVE: Mr. Bob is seen and examined. Chart reviewed. He remains in intensive care unit. PHYSICAL EXAMINATION: GENERAL: Intubated and sedated on Versed, fentanyl, and bicarb drip. VITAL SIGNS: Blood pressure 122/48, temperature 97.4, and heart rate 78. HEENT: Normocephalic. Not icteric. NECK: Supple. CHEST: Few crackles. HEART: S1, S2. ABDOMEN: Soft. Bowel sounds present. EXTREMITIES: No edema. LABORATORY DATA: His white count is going up, it is 26.5. His hemoglobin 8.7. Sodium 136, potassium 4.4, and creatinine 1.26. He had CT on the 16, which showed colitis. MEDICATIONS: He is currently on cefepime, p.o. vancomycin, metronidazole, fluconazole, . IMPRESSION: 1. Respiratory failure. 2. Coronavirus disease-19. 3. Diabetes mellitus. 4. Sepsis, concerned about Clostridium difficile colitis. We will discontinue cefepime and Diflucan. Continue with oral vancomycin. Recheck CBC. Recheck Chem panel. Check amylase and lipase. Continue supportive care as ordered. We will follow. MD JOSE Garay/MODL /[id number]
[2020-07-11 13:28] LABS: ABG PH 7.35 (7.35-7.45)
[2020-07-11 13:29] LABS: ABG HCO3 30 mmol/L (22-26); ABG PCO2 54 mmHg (35-45); ABG PO2 45 mmHg (80-105); ABG TCO2 32
--- NOTE | 2020-07-11 14:03 | Diagnostic Imaging Report ---
EXAMINATION: CHEST SINGLE (PORTABLE) INDICATION: Respiratory failure COMPARISON: Multiple prior chest radiographs, most recently 07/09/2020 FINDINGS: LINES/TUBES:Support lines and tubes unchanged. LUNGS:The lungs are moderately inflated. Unchanged diffuse bilateral interstitial and airspace opacities. PLEURA:No pleural effusion or pneumothorax. MEDIASTINUM:The cardiomediastinal silhouette appears normal in size and shape. BONES/SOFT TISSUES:No acute osseous injury. ABDOMEN:No free air under the diaphragm. IMPRESSION: No significant interval change. Signed by: Nicki Durham MD on 07/11/2020 1:59 PM
--- NOTE | 2020-07-11 14:56 | Diagnostic Imaging Report ---
EXAM: Right upper quadrant abdominal ultrasound INDICATION: Gallbladder distention COMPARISON: None. TECHNIQUE: Transverse and longitudinal images of the right upper quadrant abdomen were obtained FINDINGS: Liver: Size: 15.8 cm in the right midclavicular line, normal Appearance: Normal echogenicity, smooth contour Mass: No focal masses Gallbladder: Sludge in the gallbladder. No gallbladder wall thickening or pericholecystic fluid. Negative sonographic Cannon's sign. Gallbladder wall measures up to 4 mm. Bile Ducts: Intrahepatic Ducts: No dilatation Extrahepatic Ducts: Common bile duct measures 5 mm Pancreas: Visualized portions of the pancreatic head, neck and proximal body are normal. Kidney: The right kidney measures 12.0 cm without evidence of hydronephrosis or stone. Vessels: Aorta: Visualized portions are normal Inferior Vena Cava: Visualized portions are normal Main Portal Vein: 1.4 cm, normal size with hepatopetal flow. Free Fluid: Trace right upper quadrant ascites. IMPRESSION: Sludge filled gallbladder. No specific sonographic evidence of acute cholecystitis. Trace right upper quadrant ascites. Signed by: Nicki Durham MD on 07/11/2020 2:53 PM
--- NOTE | 2020-07-11 16:38 | NUR ---
CALL PLACED TO AGAIN REGARDING LTAC. NO ANSWER. LEFT CONTACT INFO
--- NOTE | 2020-07-11 16:50 | Progress Note ---
DATE: 07/11/2020 Renal Progress Note SUBJECTIVE: Events over the past 24 hours have been noted. The patient underwent ultrafiltration yesterday. We removed 2.5 L today. The patient right now as I am seeing him, he is supine position on his FiO2. Intake and output in the last 24 hours, he has had 4.2 L in, 3.4 L out. However, out of this 3.4 L only 125 mL was urine output, 800 mL with stool and 2500 mL was from the ultrafiltration. PHYSICAL EXAMINATION: VITAL SIGNS: Blood pressure is 114/51, pulse 75, respirations 38. GENERAL: The patient is supine. He is on the vent. His FiO2 setting actually had to go back up to 95% since they put him back on the supine position. HEENT: The patient has a trach. He has a tunneled dialysis catheter, right chest wall area. CARDIOVASCULAR: Regular rate and rhythm. LUNGS: Decreased breath sounds and crackles that are appreciable in both lungs. ABDOMEN: Decreased bowel sounds. EXTREMITIES: The patient has edema of the arms mostly. LABORATORY RESULTS: White count is 26.6, hemoglobin hematocrit 8.7 and 30 respectively. A 24 hour urine protein total is 171 mg. Sodium 130, potassium 4.2, chloride 98, bicarb 27, BUN and creatinine 36 and 1.26 respectively. Calcium 7.8. IMPRESSION: 1. Acute kidney injury. 2. COVID pneumonia. 3. Respiratory failure. 4. Borderline hypotension. PLAN: The patient underwent ultrafiltration yesterday and 2.5 L were removed. The patient really is not making any significant urine output. He is oliguric. He will need dialysis again tomorrow. Ather MD LAWRENCE Singh/MIKE /[id number]
--- NOTE | 2020-07-11 19:00 | NUR ---
Bedside report received from Stu Medellin RN. Stu reported to me that the pt has been having low o2 saturation in 80's to low 90's today and the ventilator is now on 100% FIO2%.
[2020-07-11] MEDS ORDERED: MIDAZOLAM HCL 5MG/ML 10ML VIAL 100 ML IV ONE (19:28)
[2020-07-11] MEDS ORDERED: FENTANYL 2000MCG/NS 250 250 ML ONE (19:28)
--- NOTE | 2020-07-11 22:17 | Progress Note ---
DATE: 07/11/2020 SUBJECTIVE: Sedated, cannot give history. OBJECTIVE: VITAL SIGNS: Temperature 99.1, pulse 82, respiratory rate 38, and blood pressure 105/50. GENERAL: Sedated. SKIN: No rash. HEENT: Nasogastric tube in place. LUNGS: Decreased breath sounds. HEART: Regular rate and rhythm. Normal S1 and S2. GI: Abdomen is soft and nondistended. NEUROLOGIC: Sedated. PSYCHIATRIC: Sedated. LABORATORY DATA: White count 26.65, hemoglobin 8.7, and platelet count 239. Creatinine 1.26. Right upper quadrant ultrasound shows sludge filled gallbladder. ABG; pH 7.1, pCO2 103. ASSESSMENT AND PLAN: 1. Acikk-wk-mudqppw respiratory failure due to COVID-19 pneumonia, status post tracheostomy. We will continue vent management per lime mixer and continue oral vancomycin per Infectious Disease specialist. We are having hard time ventilating the patient. Vent setting has been adjusted. Repeat ABG with better pH. 2. Acute kidney injury. He is dialysis-dependent. Continue plan per Nephrology. 3. Paroxysmal atrial fibrillation, currently in sinus rhythm. We will continue amiodarone per Cardiology. 4. Gastrointestinal and deep venous thrombosis prophylaxis. Continue Lovenox. 5. Disposition. LTAC evaluation underway. MD ASHWIN Chavez/MIKE /[id number]
[2020-07-12] VITALS (24 sets, daily range): BP systolic 107–135; BP diastolic 37–69
[2020-07-12] MEDS: VANCOMYCIN 250MG/5ML ORAL SOLN PO SCH ×4 (00:39→17:53)
[2020-07-12] MEDS: SODIUM BICARBONATE 8.4% SYRING 150 ML in DEXTROSE 5% 1,000 ML IV SCH (02:53)
[2020-07-12] MEDS: ROCURONIUM BROMIDE 1,250 MG in SODIUM CHLORIDE 0.9% 250ML 125 ML IV SCH ×2 (02:53→18:00)
[2020-07-12] MEDS: MIDAZOLAM HCL 5MG/ML 10ML VIAL 100 ML IV PRN ×2 (03:00→21:38)
--- NOTE | 2020-07-12 03:21 | Progress Note ---
DATE: 07/11/2020 CARDIOLOGY PROGRESS NOTE: SUBJECTIVE: Mr. Bob remained intubated and sedated. On pressors, Levophed. OBJECTIVE: VITAL SIGNS: Temperature 96.4, heart rate 75, blood pressure 114/51, respiratory rate 38, O2 saturation 96%. GENERAL: Intubated and sedated. NECK: Supple. CHEST: Decreased breath sounds. CARDIOVASCULAR: Regular rate and rhythm. Normal S1, S2. ABDOMEN: Soft. EXTREMITIES: With edema. CARDIOVASCULAR MEDICATIONS: Reviewed. 1. Levophed. 2. Lovenox 40 mg subcu daily. 3. Amiodarone 200 mg daily. LABORATORY DATA: Sodium 136, potassium 4.2, chloride 98, and creatinine 1.2. White blood cells 26, hemoglobin 8.7, and platelets 239. INR 1. AST 20, ALT less than 6. ASSESSMENT AND PLAN: A 65-year-old man presents with COVID-19 infection, community acquired pneumonia, acute respiratory failure, severe sepsis with septic shock, anemia, paroxysmal atrial fibrillation. Positive fecal occult blood test. RECOMMENDATIONS: Continue current cardiovascular medications. Remains with guarded prognosis. Currently in sinus rhythm. Pressors is sustained with support of Levophed, prolonged ventilatory support. Increasing white count. Guarded prognosis. MD CHRISTINE Bal/MODL /[id number]
[2020-07-12] MEDS: ENOXAPARIN SOD INJ 40 MG/0.4 ML SYR SC SCH (04:59)
[2020-07-12 05:35] LABS: BASOPHILS # (AUTO) 0.1 (0.0-0.1); BASOPHILS % 0.3 % (0.0-1.0); EOSINOPHILS # (AUTO) 0.3 (0.0-0.4); EOSINOPHILS % 1.3 % (0.0-6.0); HEMATOCRIT 27.1 % (38.2-49.6); LYMPHOCYTES # (AUTO) 1.6 (1.0-3.2); LYMPHOCYTES % 7.7 % (18.0-39.1); MEAN CORPUSCULAR HGB CONC 29.5 g/dL (31-35); MEAN CORPUSCULAR VOLUME 94.8 fL (81-99); MONOCYTES # (AUTO) 1.2 (0.2-0.8); MONOCYTES % 5.8 % (4.4-11.3); NEUTROPHILS # (AUTO) 16.9 (2.1-6.9); NEUTROPHILS % 82.6 % (38.7-80.0); PLATELET COUNT 231 x10e3/uL (140-360); RED BLOOD COUNT 2.86 x10e6/uL (4.3-5.7); RED CELL DISTRIBUTION WIDTH 16.9 % (11.7-14.4)
[2020-07-12 06:49] LABS: ABG HCO3 33 mmol/L (22-26); ABG PCO2 50 mmHg (35-45); ABG PH 7.43 (7.35-7.45); ABG PO2 55 mmHg (80-105); ABG TCO2 35
[2020-07-12 06:52] LABS: ALBUMIN 2.4 g/dL (3.5-5.0); ALBUMIN/GLOBULIN RATIO 0.7 (0.8-2.0); ALKALINE PHOSPHATASE 119 IU/L (40-150); ANION GAP 14.8 mmol/L (8-16); BLOOD UREA NITROGEN 42 mg/dL (7-26); BUN/CREATININE RATIO 31 (6-25); CALCIUM 7.6 mg/dL (8.4-10.2); CARBON DIOXIDE 30 mmol/L (22-29); CHLORIDE 96 mmol/L (98-107); CREATININE, SERUM 1.34 mg/dL (0.72-1.25); EST GLOMERULAR FILTRATION RATE 53 ML/MIN (60-); GLUCOSE 120 mg/dL (74-118); POTASSIUM 3.8 mmol/L (3.5-5.1); SODIUM 137 mmol/L (136-145)
[2020-07-12 06:53] LABS: ALANINE AMINOTRANSFERASE < 6 IU/L (0-55)
[2020-07-12] MEDS: COLLAGENASE 5 GM TUBE TP SCH (07:56)
[2020-07-12] MEDS: AMIODARONE HCL 200 MG TAB PO SCH (07:56)
--- NOTE | 2020-07-12 08:39 | Diagnostic Imaging Report ---
EXAMINATION: CHEST SINGLE (PORTABLE) INDICATION: ^resp failure ^[id number] ^0520 COMPARISON: Chest radiographs 07/11/2020, 07/09/2020, and 07/08/2020 FINDINGS: TUBES and LINES: Unchanged position of right upper extremity PICC, right-sided tunneled dual lumen hemodialysis catheter, and tracheostomy tube. Stable position of enteric tube extending beneath the left hemidiaphragm however tip not included in the [id number]. LUNGS: Lungs are well inflated. Unchanged diffuse bilateral interstitial and airspace opacities. PLEURA: Questionable small bilateral pleural effusions. No pneumothorax. HEART AND MEDIASTINUM: The cardiomediastinal silhouette is unchanged. BONES AND SOFT TISSUES: No acute osseous lesion. Soft tissues are unremarkable. UPPER ABDOMEN: No free air under the diaphragm. IMPRESSION: Unchanged exam with stable position of support lines/tubes and redemonstrated diffuse bilateral interstitial and airspace opacities. Signed by: Dr. Kilo Quigley M.D. on 07/12/2020 8:36 AM
--- NOTE | 2020-07-12 10:33 | Progress Note ---
DATE: SUBJECTIVE: The patient is still on mechanical ventilation. He is in the supine position. He is currently on a pressure control mode of ventilation at a rate of 38 with a PEEP of 6 and a pressure above PEEP of 36. His FiO2 is set at 90%. PHYSICAL EXAMINATION: VITAL SIGNS: Blood pressure is 133/52, saturation is 98%. The pulse is 74. HEENT: Shows no facial swelling or erythema. LYMPHATIC: Shows no submandibular, cervical, or supraclavicular adenopathy. CARDIAC: Reveals a regular rate and rhythm with normal S1 and S2. LUNGS: Auscultation of lungs reveals decreased breath sounds at the bases. There is no wheezing. ABDOMEN: Soft and nontender. There is no rebound or guarding. EXTREMITIES: Shows 2 to 3+ leg edema. SKIN: No leg edema. LABORATORY DATA: White blood cell count is 20.4, hemoglobin is 8, platelet count is 231. BUN to creatinine ratio is 42 to 1.34. Other electrolytes are within normal limits. Albumin is 2.4. Blood gases; 7.43, 50, 55, and 33. RADIOGRAPHIC DATA: Chest x-ray shows bilateral interstitial infiltrates and airspace opacities. IMPRESSION: 1. Acute respiratory failure. 2. Viral pneumonia and COVID-19 infection. 3. Acute renal failure. 4. Colitis. 5. Moderate protein-calorie malnutrition. 6. Diabetes. 7. Leukocytosis. PLAN: 1. Continue current ventilator settings and repeat ABG later tonight. 2. Continue current antibiotics. 3. Continue enteral feedings. 4. Monitor and control of blood sugars. 5. Dialysis as needed. 6. Stop bicarbonate drip. Manuel Quigley MD [facility]/MODL /[id number]
[2020-07-12] MEDS: FENTANYL 2000MCG/NS 250 250 ML IV PRN (12:34)
--- NOTE | 2020-07-12 13:41 | NUR ---
Infectious disease progress note he patient is still on mechanical ventilation. He is in the supine position. The patient remains intensive care unit in critical condition pain 5 discussed the medical team he remains on a ventilator in He is currently on a pressure control mode of ventilation at a rate of 38 with a PEEP of 6 and a pressure above PEEP of 36. His FiO2 is set at 90%. PHYSICAL EXAMINATION: VITAL SIGNS: Blood pressure is 133/52, saturation is 98%. The pulse is 74. HEENT: Shows no facial swelling or erythema. LYMPHATIC: Shows no submandibular, cervical, or supraclavicular adenopathy. CARDIAC: Reveals a regular rate and rhythm with normal S1 and S2. LUNGS: Auscultation of lungs reveals decreased breath sounds at the bases. There is no wheezing. ABDOMEN: Soft and nontender. There is no rebound or guarding. EXTREMITIES: Shows 2 to 3+ leg edema. SKIN: No leg edema. LABORATORY DATA: White blood cell count is 20.4, hemoglobin is 8, platelet count is 231. BUN to creatinine ratio is 42 to 1.34. Other electrolytes are within normal limits. Albumin is 2.4. Blood gases; 7.43, 50, 55, and 33. RADIOGRAPHIC DATA: Chest x-ray shows bilateral interstitial infiltrates and airspace opacities. ultrasound did not reveal cholecystitis IMPRESSION: 1. Acute respiratory failure. 2. Viral pneumonia and COVID-19 infection. 3. Acute renal failure. 4. Colitis. 5. Moderate protein-calorie malnutrition. 6. Diabetes. 7. Leukocytosis. continue with supportive care as ordered prognosis remains very poor
--- NOTE | 2020-07-12 15:15 | NUR ---
Nutrition Intervention Note RD Recommendation(s) for Physician: -Recommend Vital AF 1.2 and increase toward goal rate of 55 mL/hr (provides 1584 kcal, 99 g protein) -Pt may be fed when in prone position at goal rate in reverse Trendelenburg with HOB at 10-25 degrees -Fluid/water management per MD Plan of Care: RD following, monitoring for tolerance and adequacy, tube feed recommendation Nutrition reason for involvement: follow up RD Assessment 07/12: Follow up. Chart reviewed. Pt remains intubated. Per chart, pt is receiving Vital AF 1.2 @ 25 mL/hr. MD note indicates pt is in the supine position. Recommend increasing TF rate towards recommended goal rate. Will continue to monitor 07/07: Follow up. Chart reviewed. TF was off per RN but will be resumed. RN stated pt had been transitioning from prone to supine position. Pivot 1.5 is out of stock; therefore, recommend modifying formula to Vital AF 1.2. Will continue to monitor. 07/04: Follow up. Pt remains intubated via trach, sedated, and paralyzed. No pressor support. Pt supine currently. Continues on TF of Pivot 1.5 at goal rate of 45 ml/hr, tolerating at goal rate. Pt discussed during MDR, plan for TDC placement today as pt continues to require dialysis. Current TF remains appropriate. Chart reviewed. Will continue to monitor. 06/29: Follow up. Chart reviewed. Pt remains intubated/sedated and is in the prone position per chart. Pt is tolerating tube feeding at 45 mL/hr. Current recommendations remain appropriate. Will continue to monitor. 06/26: Follow up. Chart reviewed. Pt remains intubated and sedated. Trach placement is being discussed per chart. Pt is tolerating tube feeding of Pivot at goal of 45 mL/hr which meets nutritional needs. Will continue to monitor. 06/21: Follow up. Chart reviewed. Pt had been receiving tube feeding at goal rate of 45 mL/hr per RN which meets nutritional needs. Will continue to monitor. 06/16: Follow up. Chart reviewed. Pt remains intubated and is in the supine position. Pts tube feeding is at goal rate of 45 mL/h which is meeting needs. Will continue to monitor 06/13: Follow up. Pt remains intubated and paralyzed requiring intermittent proning. Pt currently on Levophed at 8 mcg/min. TF continues to meet >75% of estimated needs. Chart reviewed. Will continue to monitor. 06/09: Follow up. Pt remains intubated and sedated. It is documented that pts tube feed is at 35 mL/hr. It is noted that pt has been in the prone position overnight. Will continue to monitor 06/06: Follow up. Pt remains intubated, sedated, and paralyzed. No pressor support. Pt continues on TF of Vital HP, infusing at 20 ml/hr at time of visit- RN unavailable to discuss rate. Pt not meeting needs with current TF > [address] Quigley regarding TF and goal rate, MD amenable to continuing goal rate while in prone position as it is not contraindicated. RD to modify TF order per MD. Chart reviewed. Will continue to monitor. 06/02: Follow up. Chart reviewed. Pt remains intubated and sedated. Pt is receiving Vital HP @ 30 mL/hr at this time - not meeting nutritional needs. Current recommendations remain appropriate. Will continue to monitor. 05/29: Follow up. Chart reviewed. Pt remains intubated and sedated. MD note indicates that pt remains in the prone position. Pt is receiving Vital HP @ 20 mL/hr at this time. Current recommendations remain appropriate. Will continue to monitor. 05/24: Follow up. Pt remains intubated and sedated, requiring to be proned- no paralytic currently. Vital HP infusing at goal rate, providing >75% of estimated needs. Chart reviewed. Current TF rec's remain appropriate. Will continue to monitor. 05/22: Follow up. Pt remains intubated, paralyzed, and sedated. TF documented as Glucerna 1.2 at 30 ml/hr currently, not meeting needs. Pt requiring proning at times. Pt with chest tubes to output. Current TF rec's remain appropriate. Chart reviewed. Will continue to monitor. 05/17: Follow up. Chart reviewed. Pt remains intubated. RN reports that pts tube feeding is at 10 mL/hr at this time and pt is in the prone position. Current recommendations remain appropriate. Will continue to monitor. 05/12: Pt was intubated yesterday and tube feeding was ordered. It is recorded that pt consumed 25% of breakfast on 05/10 and was previously consuming 50-100% of meals. Recommendations provided. Will continue to monitor. 05/09: 65 YOM admitted for hypoxia and pneumonia due to COVID-19. Pt assessed today for LOS. Attempted to call pt's room x 2, no answer- unable to obtain hx at this time. No wt loss or poor intake indicated at admit per MD notes. Pt with 50-100% intake since admit. Pt currently on Vapotherm per current respiratory status. Labs and meds reviewed. LBM 05/08, skin intact. Chart reviewed. Will continue to monitor. Principal Problems/Diagnoses: hypoxia, pneumonia due to COVID-19 PMH: HTN, HLD GI: last recorded BM 07/10- liquid stool, soft/large/round abdomen Skin: stage 2 pressure ulcer/suspected DTI left ear, stage 2 pressure ulcer bilateral cheek, stage 2 pressure ulcer lower urethral meatus Labs: 07/12: Na 137, K 3.8, BUN 42, Cr 1.34, Glu 120, Ca 7.6 07/06: Na 139, K 5.2, Cr 1.81, BUN 81 Glu 117, AST 36 07/04: Na 136, K 4.6, BUN 67, Cr 1.35, Gluc 92, Ca 8.6 06/29: Na 134, K 5.0, BUN 66, Cr 1.14, Glu 132, Ca 8.3 06/26: Na 139, K 4.3, BUN 76, Cr 0.98, Glu 119, Ca 8.3 06/21: Na 154, K 3.5, BUN 65, Cr 0.66, Glu 144 06/16: Na 146, K 4.1, BUN 38, Cr 0.69, Glu 138, AST 35 06/13: Na 142, K 3.1, BUN 29, Cr 0.62, Gluc 123, Ca 8.8 06/09: Na 148, K 4.5, BUN 32, Cr 0.56, Glu 160 06/06: Na 147, K 3.3, BUN 22, Cr 0.62, Gluc 135, Ca 9 06/02: Na 140, K 3.5, BUN 24, Cr 0.66, Glu 116 05/29: Na 141, K 3.9, BUN 24, Cr 0.66, Glu 87, Ca 9.5 05/24: Na 147, K 3, BUN 27, Cr 0.61, Gluc 100, POC Gluc 123-126, Ca 6.3, Mg 1.5 05/22: Na 143, K 4.5, BUN 28, Cr 0.77, Gluc 122, POC Gluc 122-136 (05/17/20) Na 141, K 4.2, BUN 18, Cr 0.61, Glu 87, Ca 8.7 (05/12/20) Na 141, K 5.4, BUN 33, Cr 0.76, Glu 118, Ca 7.9 Meds: vancomycin, rocuronium, fentanyl, norepineohrine, mannitol Ht: 66 inches Wt: 291 lbs (07/12) 310 lbs (07/06) questionable weight change 215.44 lbs (07/04) 200 lbs (06/29) 211 lbs (06/21) 213 lbs (06/16) 215 lbs (06/13) 211 lbs (06/08) 212 lbs (06/06) 221 lbs (06/02) 246 lbs (05/28) 218 lbs (05/09) BMI: 35.2 using weight of 218 lbs IBW: 142 lbs Malnutrition Evaluation (07/12/20) The patient does not meet criteria for a specified degree of malnutrition at this time. Energy intake: pt not meeting energy needs with current tube feed rate Weight loss: does not meet criteria- wt fluctuations since admit noted with no significant change from admit wt, likely fluid related Fat loss: none- ample skinfold thickness of upper arms, observed outside of pt room Muscle loss: none- shoulder round, observed outside of pt room Supporting Evidence: Fluid accumulation: 2 to 3+ leg edema Functional Status: unable to evaluate- pt intubated and sedated Nutrition Prescription (Diet Order): pt is receiving Vital AF 1.2 @ 25 mL/hr per chart Estimated Nutritional Needs: 7510-4922 calories/day (22-25 kcal/kg IBW) 97-129 g protein/day (1.5-2 g pro/kg IBW) Diet Adequacy: current tube feed rate is not meeting calorie and protein needs Tolerance: tolerating TF per chart Diet Education Needs Assessment: Diet education is not indicated, pt is intubated Nutrition Care Level: moderate Nutrition Diagnosis: Inadequate oral intake related to acute respiratory failure/mechanical ventilation as evidenced by requiring enteral nutrition. Goal: Patient will meet 75-100% of estimated needs by follow up Progress: progressing Interventions: - Composition, Rate, Route, Recommended modifications Monitoring/Evaluation: -Total energy intake, Total protein intake, Formula/Solution, Weight change Signed: Ruth Kern RD, LD
[2020-07-12 15:27] LABS: ABG HCO3 30 mmol/L (22-26); ABG PCO2 49 mmHg (35-45); ABG PH 7.39 (7.35-7.45); ABG PO2 62 mmHg (80-105); ABG TCO2 31
--- NOTE | 2020-07-12 16:13 | Progress Note ---
DATE: 07/12/2020 Renal Progress Note SUBJECTIVE: Events over the past 24 hours have been noted. The patient remains on the ventilator. PHYSICAL EXAMINATION: VITAL SIGNS: Blood pressure 124/46. He is on low-dose Levophed. Pulse 82. Intake and output; in the last 24 hours he has had 2825 in and 300 out. His urine output is only 180 mL. GENERAL: The patient on the ventilator. He is sedated. HEENT: The patient has a trach. He has a tunneled dialysis catheter in the right chest wall area. CARDIOVASCULAR: Regular rate and rhythm. LUNGS: Have squeals and crackles bilaterally. ABDOMEN: Decreased bowel sounds. EXTREMITIES: The patient has edema all over. LABORATORY RESULTS: White count is 20.4, hemoglobin and hematocrit of 8 and 27 respectively. Sodium 137, potassium 3.8, chloride 96, bicarbonate 30, BUN and creatinine 44 and 1.34 respectively. Calcium 7.6. IMPRESSION: 1. Acute kidney injury. 2. COVID pneumonia. 3. Respiratory failure. 4. Borderline hypotension. 5. Fluid overload. PLAN: The patient's electrolyte status is okay. However, his output is very decreased compared to his intake. He is going to be ultrafiltered today. I am seeing him while he is on ultrafiltration. We are going to take off 3 L in 3 hours. So far, he is tolerating it well. A decision will be made on a day-to-day basis but he needs dialysis or ultrafiltration. Ather MD LAWRENCE Archer/MIKE /[id number]
--- NOTE | 2020-07-12 19:04 | Progress Note ---
DATE: 07/12/2020 Cardiology Progress Note SUBJECTIVE: Remains on vent support via trach. OBJECTIVE: VITAL SIGNS: Temperature 98.5, heart rate 86, blood pressure 133/52, respiratory rate 38, O2 saturation 100%. GENERAL: Sedated, chronically ill-appearing. NECK: With trach connected to vent. CHEST: With rales and decreased breath sounds. CARDIOVASCULAR: Regular rate and rhythm. Normal S1, S2. No S3 or S4. ABDOMEN: Soft. Bowel sounds positive. EXTREMITIES: Trace edema. CARDIOVASCULAR MEDICATIONS: Reviewed. Lovenox 40 mg subcu daily, amiodarone 200 mg daily. STUDIES: Reviewed. Creatinine 1.3, sodium 137, hemoglobin 8, white blood cells 20, platelets 231. ASSESSMENT AND PLAN: A 65-year-old man presents with paroxysmal atrial fibrillation, anemia, acute on chronic diastolic heart failure, COVID-19 infection, community-acquired pneumonia, FOBT positive. RECOMMEND: The patient remains in guarded prognosis, prolonged ventilatory support. Given FOBT positive and anemia not on full dose anticoagulation. Continue amiodarone. MD CHRISTINE Bal/MIKE /[id number]
--- NOTE | 2020-07-12 19:19 | Progress Note ---
DATE: 07/12/2020 SUBJECTIVE: Sedated, cannot give history. OBJECTIVE: VITAL SIGNS: Temperature 97.6, pulse 83, respiratory rate 38, and blood pressure 120/48. GENERAL: Sedated. SKIN: No rash. HEENT: Nasogastric tube in place. LUNGS: Decreased breath sounds. HEART: Regular rate and rhythm. Normal S1 and S2. GI: Abdomen is soft and nondistended. NEUROLOGIC: Sedated. PSYCHIATRIC: Sedated. LABORATORY DATA: White count 20, hemoglobin 8, and platelet count 231. Creatinine 1.34. ASSESSMENT AND PLAN: 1. [id number] respiratory failure due to COVID-19 pneumonia, status post tracheostomy. We will continue vent management per clinical care coordinator and continue oral vancomycin per Infectious Disease specialist. 2. Acute kidney injury, dialysis-dependent. Continue dialysis per Nephrology. 3. Paroxysmal atrial fibrillation, currently in sinus rhythm. We will continue amiodarone per Cardiology. 4. Gastrointestinal and deep venous thrombosis prophylaxis. Continue Lovenox. 5. Disposition. LTAC evaluation in progress. MD ASHWIN Chavez/MIKE /[id number]
[2020-07-13] VITALS (26 sets, daily range): BP systolic 104–130; BP diastolic 38–71
[2020-07-13] MEDS: FENTANYL 2000MCG/NS 250 250 ML IV PRN ×2 (04:24→21:00)
[2020-07-13] MEDS: MIDAZOLAM HCL 5MG/ML 10ML VIAL 100 ML IV PRN ×2 (04:24→21:00)
[2020-07-13 06:01] LABS: BASOPHILS # (AUTO) 0.1 (0.0-0.1); BASOPHILS % 0.2 % (0.0-1.0); EOSINOPHILS # (AUTO) 0.3 (0.0-0.4); EOSINOPHILS % 1.2 % (0.0-6.0); HEMATOCRIT 26.9 % (38.2-49.6); HEMOGLOBIN 8.1 g/dL (14.0-18.0); LYMPHOCYTES # (AUTO) 1.4 (1.0-3.2); LYMPHOCYTES % 6.2 % (18.0-39.1); MEAN CORPUSCULAR HEMOGLOBIN 27.6 pg (28-32); MEAN CORPUSCULAR HGB CONC 30.1 g/dL (31-35); MEAN CORPUSCULAR VOLUME 91.8 fL (81-99); MONOCYTES # (AUTO) 1.3 (0.2-0.8); MONOCYTES % 5.9 % (4.4-11.3); NEUTROPHILS # (AUTO) 18.6 (2.1-6.9); NEUTROPHILS % 84.1 % (38.7-80.0); PLATELET COUNT 237 x10e3/uL (140-360); RED BLOOD COUNT 2.93 x10e6/uL (4.3-5.7); RED CELL DISTRIBUTION WIDTH 16.8 % (11.7-14.4)
[2020-07-13] MEDS: VANCOMYCIN 250MG/5ML ORAL SOLN PO SCH ×4 (06:20→18:47)
[2020-07-13] MEDS: ENOXAPARIN SOD INJ 40 MG/0.4 ML SYR SC SCH (06:20)
[2020-07-13 06:25] LABS: ALBUMIN 2.4 g/dL (3.5-5.0); ALBUMIN/GLOBULIN RATIO 0.6 (0.8-2.0); ALKALINE PHOSPHATASE 122 IU/L (40-150); ANION GAP 16.1 mmol/L (8-16); BLOOD UREA NITROGEN 49 mg/dL (7-26); BUN/CREATININE RATIO 33 (6-25); CALCIUM 7.7 mg/dL (8.4-10.2); CARBON DIOXIDE 27 mmol/L (22-29); CHLORIDE 95 mmol/L (98-107); EST GLOMERULAR FILTRATION RATE 47 ML/MIN (60-); GLUCOSE 103 mg/dL (74-118); POTASSIUM 4.1 mmol/L (3.5-5.1); SODIUM 134 mmol/L (136-145)
[2020-07-13 06:26] LABS: ALANINE AMINOTRANSFERASE < 6 IU/L (0-55)
[2020-07-13] MEDS: AMIODARONE HCL 200 MG TAB PO SCH (08:07)
[2020-07-13] MEDS: COLLAGENASE 5 GM TUBE TP SCH (08:07)
--- NOTE | 2020-07-13 08:29 | Diagnostic Imaging Report ---
TECHNIQUE: Frontal view of the chest. INDICATION: ^resp failure ^[id number] ^0500 COMPARISON: Prior day. DISCUSSION: Limited evaluation due to portable technique. Lines and hardware: Stable right internal jugular tunneled hemodialysis catheter, tracheostomy tube, subdiaphragmatic enteric tube and right PICC. Heart and mediastinum: Stable Lungs and pleura: Stable bilateral interstitial and airspace opacities. Negative for large effusions or pneumothorax. Soft tissues and bones: No acute abnormality. IMPRESSION: Stable exam Signed by: Ced Duncan MD on 07/13/2020 8:26 AM
[2020-07-13 09:49] LABS: ABG HCO3 31 mmol/L (22-26); ABG PCO2 50 mmHg (35-45); ABG PH 7.39 (7.35-7.45); ABG PO2 50 mmHg (80-105)
[2020-07-13 09:50] LABS: ABG TCO2 32
--- NOTE | 2020-07-13 10:38 | Progress Note ---
DATE: Pulmonary Critical Care Progress Note SUBJECTIVE: The patient remains in the supine position. He is currently on a PRVC mode of ventilation with a respiratory rate of 38 and the PEEP of 6. His pressure above PEEP is 36. His FiO2 is 100%. PHYSICAL EXAMINATION: VITAL SIGNS: The patient is afebrile. The blood pressure is 116/47, saturation is 100%. HEENT: No facial swelling or erythema. LYMPHATIC: No submandibular, cervical, or supraclavicular adenopathy. CARDIAC: Regular rhythm with normal S1, S2. LUNGS: Auscultation of the lungs shows crackles and rhonchi at the bases. There is no wheezing. ABDOMEN: Soft, nontender. There is no rebound or guarding. EXTREMITIES: No leg edema or calf tenderness. There is no cyanosis or clubbing. SKIN: No rashes. LABORATORY DATA: BUN to creatinine ratio is 49 to 1.5. The other electrolytes are within normal limits. The albumin is 2.4. White blood cell count is 22 and hemoglobin is 8.1. The platelet count is 297. IMPRESSION: 1. Acute respiratory failure. 2. Viral pneumonia and coronavirus disease-19 infection. 3. Acute renal failure. 4. Colitis. 5. Moderate protein-calorie malnutrition. 6. Diabetes. 7. Leukocytosis. PLAN: 1. Continue current ventilator settings and repeat ABG. 2. Continue enteral feedings. 3. Continue current antibiotics. 4. Monitor and control blood sugars. 5. Continue dialysis as needed. 6. Place the patient in prone position today. Manuel Quigley MD [facility]/MODL /[id number]
--- NOTE | 2020-07-13 10:56 | NUR ---
CALL TO PT'S DTR, ALEXA @ [phone]. NO ANSWER; TENA. CM LEFT CONTACT INFO.
--- NOTE | 2020-07-13 11:58 | Progress Note ---
DATE: 07/13/2020 Cardiology Progress Note SUBJECTIVE: Mr. Bob remains on ventilatory support. OBJECTIVE: VITAL SIGNS: Temperature 98.5, heart rate 86, blood pressure 116/47, respiratory rate 38, and O2 saturation 100%. GENERAL: Sedated, trach with vent support. NECK: Supple. CHEST: Rales. Decreased breath sounds. CARDIOVASCULAR: Regular rate and rhythm. Normal S1, S2. ABDOMEN: Soft. EXTREMITIES: Trace edema. CARDIOVASCULAR MEDICATIONS: Reviewed. Lovenox 40 mg subcu daily, albumin 25 mg p.r.n., amiodarone 200 mg daily, and Levophed. STUDIES: Creatinine 1.5. White blood cells 22, hemoglobin 8.1, and platelets 237. ASSESSMENT AND PLAN: A 65-year-old man with coronavirus disease-19 infection, acute respiratory failure, community-acquired pneumonia, anemia, and paroxysmal atrial fibrillation. RECOMMEND: 1. Continue current cardiovascular medications. Wean pressors for MAP 65-75. 2. Guarded prognosis. Mario Harris MD [facility]/MODL /[id number]
--- NOTE | 2020-07-13 15:37 | NUR ---
INFECTIOUS DISEASE PROGRESS NOTE LEIGHANN RUTHERFORD M.D SUBJECTIVE: Mr. Bob remains in intensive care unit, extremely ill. ROS: unable to obtain due to condition D/W ICU team PHYSICAL EXAMINATION: GENERAL: intubated and sedated. VITAL SIGNS: critically ill, currently afebrile. HEENT: He is not icteric. NECK: Supple. no JVD CHEST: Few rhonchi. HEART: S1 and S2. ABDOMEN: Soft. Bowel sounds present. EXTREMITIES: Edema, no joint swelling SKIN: No rash, normal temperature LABORATORY DATA: reviewed RADIOLOGY: reviewed IMPRESSION: 1. Acute respiratory failure. 2. Viral pneumonia and coronavirus disease-19 infection. 3. Acute renal failure. 4. Colitis. 5. Diabetes. 6. Anemia. 7. Moderate protein-calorie malnutrition. 8. Atrial fibrillation. 10. Leukocytosis PLAN Prognosis remains extremely poor Vanco po weaning off pressor support prone today Sakina Benedict MSN, HEALTH EDUCATION SPECIALIST, AGACNP- Leighann Rutherford M.D.
[2020-07-13] MEDS: CEFEPIME 1GM/NS 0.9% 50 ML 50 ML IV SCH (15:59)
--- NOTE | 2020-07-13 16:55 | NUR ---
Dr. Debi Salguero's office notified of new consult for peg placement. Spoke with patient's daughter today and informed daughter that case management had tried to reach Mrs. Bob. Daughter reported that she tried calling back the callback number yesterday but had not received a call back. Informed dylan that case management would like to speak to family regarding possible LTAC placement. Dylan reported that she would try calling back this afternoon. Also spoke in depth with daughter regarding current assessment findings and ventilator settings. Explained to daughter that patient receiving dialysis now and urine output is minimal. Daughter is understanding that patient condition remains stable but critical at this time.
[2020-07-13] MEDS: METRONIDAZOLE 500MG/NS 100ML 100 ML IV SCH (17:01)
--- NOTE | 2020-07-13 19:48 | Progress Note ---
DATE: 07/13/2020 SUBJECTIVE: Sedated, cannot give history. OBJECTIVE: VITAL SIGNS: Temperature 98.3, pulse 89, respiratory rate 38, and blood pressure 125/41. GENERAL: Sedated. SKIN: No rash. HEENT: Nasogastric tube in place. LUNGS: Decreased breath sounds. HEART: Regular rate and rhythm. Normal S1, S2. GI: Abdomen is soft, nondistended. NEUROLOGIC: Sedated. PSYCHIATRIC: Sedated. LABORATORY DATA: White count 22, hemoglobin 8, and platelet count 237. Creatinine 1.5. ASSESSMENT AND PLAN: 1. Acute on chronic respiratory failure due to coronavirus disease-19 pneumonia, status post tracheostomy. We will continue vent management per application technician and continue oral vancomycin per Infectious Disease specialist. His white blood cell count was still elevated. 2. Acute kidney injury, dialysis dependent. We will continue dialysis per Nephrology. 3. Morbid obesity. 4. Paroxysmal atrial fibrillation, currently in sinus rhythm. We will continue amiodarone per Cardiology. 5. Gastrointestinal and deep venous thrombosis prophylaxis. Continue Lovenox. 6. Disposition. LTAC evaluation underway. Yiching MD [facility]/MODSteven /[id number]
[2020-07-14] VITALS (20 sets, daily range): BP systolic 92–135; BP diastolic 40–74
[2020-07-14] MEDS: MIDAZOLAM HCL 5MG/ML 10ML VIAL 100 ML IV PRN ×3 (00:30→14:28)
[2020-07-14] MEDS: VANCOMYCIN 250MG/5ML ORAL SOLN PO SCH ×4 (01:01→17:58)
[2020-07-14] MEDS: METRONIDAZOLE 500MG/NS 100ML 100 ML IV SCH ×3 (01:45→17:58)
[2020-07-14] MEDS: CEFEPIME 1GM/NS 0.9% 50 ML 50 ML IV SCH ×2 (03:34→17:58)
[2020-07-14 04:48] LABS: BASOPHILS # (AUTO) 0.1 (0.0-0.1); BASOPHILS % 0.3 % (0.0-1.0); EOSINOPHILS # (AUTO) 0.3 (0.0-0.4); EOSINOPHILS % 1.5 % (0.0-6.0); HEMATOCRIT 27.4 % (38.2-49.6); HEMOGLOBIN 8.3 g/dL (14.0-18.0); LYMPHOCYTES # (AUTO) 2.1 (1.0-3.2); LYMPHOCYTES % 10.2 % (18.0-39.1); MEAN CORPUSCULAR HEMOGLOBIN 27.9 pg (28-32); MEAN CORPUSCULAR HGB CONC 30.3 g/dL (31-35); MEAN CORPUSCULAR VOLUME 91.9 fL (81-99); MONOCYTES # (AUTO) 1.5 (0.2-0.8); MONOCYTES % 7.3 % (4.4-11.3); NEUTROPHILS # (AUTO) 16.2 (2.1-6.9); NEUTROPHILS % 78.2 % (38.7-80.0); PLATELET COUNT 234 x10e3/uL (140-360); RED BLOOD COUNT 2.98 x10e6/uL (4.3-5.7); RED CELL DISTRIBUTION WIDTH 16.6 % (11.7-14.4)
[2020-07-14 05:22] LABS: ALBUMIN 2.5 g/dL (3.5-5.0); ALBUMIN/GLOBULIN RATIO 0.6 (0.8-2.0); ANION GAP 18.4 mmol/L (8-16); CALCIUM 7.8 mg/dL (8.4-10.2); CREATININE, SERUM 1.77 mg/dL (0.72-1.25); POTASSIUM 4.4 mmol/L (3.5-5.1)
[2020-07-14] MEDS: FENTANYL 2000MCG/NS 250 250 ML IV PRN ×2 (05:45→14:29)
[2020-07-14] MEDS: ENOXAPARIN SOD INJ 40 MG/0.4 ML SYR SC SCH (06:39)
[2020-07-14] MEDS: NOREPINEPHRINE 8 MG/D5W 250 ML 250 ML IV SCH ×3 (06:40→14:28)
--- NOTE | 2020-07-14 07:28 | NUR ---
Tube feeding flushed and off per conversation with Dr Benjy Salguero. Possible PEG placement late today as Lovenox given this a.m. and presently on Levophed gtt. Orders for obtaining consent received.
--- NOTE | 2020-07-14 07:37 | NUR ---
Called and daughter for consent; no answer, awaiting callback.
[2020-07-14 08:26] LABS: ABG HCO3 26 mmol/L (22-26); ABG PCO2 44 mmHg (35-45); ABG PH 7.37 (7.35-7.45); ABG PO2 54 mmHg (80-105); ABG TCO2 27
[2020-07-14] MEDS: ROCURONIUM BROMIDE 1,250 MG in SODIUM CHLORIDE 0.9% 250ML 125 ML IV SCH (08:30)
[2020-07-14 08:36] LABS: INR 1.29; PROTHROMBIN TIME 16.7 seconds (11.9-14.5)
--- NOTE | 2020-07-14 08:47 | NUR ---
CALL TO PT'S AND DTR. BOTH NO ANSWER. LEFT VM W CONTACT INFO.
--- NOTE | 2020-07-14 08:48 | Progress Note ---
DATE: Pulmonary Critical Care Progress Note SUBJECTIVE: The patient is scheduled for PEG today. The patient is now on Levophed at 4 mcg. The patient continues on pressure control at a rate of 38 with a PEEP of 6 and a pressure control of 34. The FiO2 is set at 90%. OBJECTIVE: VITAL SIGNS: The blood pressure is 103/64 and saturation is 97% on pressure control as noted above. The patient remains on 4 mcg of Levophed. HEENT: Shows no facial swelling or erythema. There is a tracheostomy. The site looks clean. There is no drainage. CARDIAC: Reveals regular rate and rhythm with normal S1 and S2. LUNGS: Auscultation of lungs reveals crackles at the bases. There is no wheezing. ABDOMEN: Soft and nontender. There is no rebound or guarding. EXTREMITIES: Show no leg edema or calf tenderness. There is no cyanosis or clubbing. SKIN: Shows no rashes. NEUROLOGICAL: Shows no focal abnormalities. LABORATORY DATA: The BUN to creatinine ratio is 58 to 1.77. Other electrolytes are within normal limits. Albumin is 2.5. The white blood cell count is 20.6 and the hemoglobin is 8.3. The platelet count is 234. RADIOGRAPHIC DATA: Chest x-ray shows stable exam. There are bilateral infiltrates. IMPRESSION: 1. Acute respiratory failure. 2. Viral pneumonia and COVID-19 infection. 3. Acute renal failure. 4. Atrial fibrillation. 5. Moderate protein-calorie malnutrition. 6. Colitis. 7. Diabetes. PLAN: 1. Await PEG today. 2. Continue current ventilator settings and monitor ABG. 3. Continue enteral feedings. 4. Continue current antibiotics. 5. Monitor and control blood sugars. 6. Continue dialysis as needed. Greater than 35 minutes in direct critical care time. Manuel Quigley MD [facility] /[id number]
[2020-07-14] MEDS: AMIODARONE HCL 200 MG TAB PO SCH (09:38)
[2020-07-14] MEDS: COLLAGENASE 5 GM TUBE TP SCH (09:53)
--- NOTE | 2020-07-14 14:10 | NUR ---
INFECTIOUS DISEASE PROGRESS NOTE LEIGHANN RUTHERFORD M.D SUBJECTIVE: Mr. Bob remains in intensive care unit, extremely ill. ROS: unable to obtain due to condition D/W ICU team PHYSICAL EXAMINATION: GENERAL: intubated and sedated. VITAL SIGNS: critically ill, currently afebrile. HEENT: He is not icteric. NECK: Supple. no JVD CHEST: Few rhonchi. HEART: S1 and S2. ABDOMEN: Soft. Bowel sounds present. EXTREMITIES: Edema, no joint swelling SKIN: No rash, normal temperature LABORATORY DATA: reviewed RADIOLOGY: reviewed IMPRESSION: 1. Acute respiratory failure. 2. Viral pneumonia and coronavirus disease-19 infection. 3. Acute renal failure. 4. Colitis. 5. Diabetes. 6. Anemia. 7. Moderate protein-calorie malnutrition. 8. Atrial fibrillation. 10. Leukocytosis PLAN Vanco po, added Cefepime and Flagyl yesterday with some improvement in WBC today weaning off pressor support PEG Sakina Benedict MSN, SUPERVISORY AIDE, AGACNP-BC Leighann Rutherford M.D.
--- NOTE | 2020-07-14 18:56 | Progress Note ---
DATE: 07/14/2020 Cardiology Progress Note SUBJECTIVE: Remains on vent support, FiO2 90%. OBJECTIVE: VITAL SIGNS: Temperature 98.9, heart rate 86, respiratory rate 38, blood pressure 123/64, and O2 saturation 99%. GENERAL: Chronically ill-appearing. HEENT: With cheek eschars. NECK: With trach connected to vent. CHEST: With rales and decreased breath sounds. CARDIOVASCULAR: Regular rate and rhythm. Normal S1 and S2. ABDOMEN: Soft. EXTREMITIES: With edema throughout. Normothermic. CARDIOVASCULAR MEDICATIONS: Reviewed. Amiodarone 200 mg daily, Lovenox 40 mg daily, and albumin p.r.n. STUDIES: Reviewed. White blood cells 20, hemoglobin 8.3, and platelets 16. INR 1.2. Sodium 134, potassium 4.4, chloride 94, bicarbonate 26, BUN 58, creatinine 1.7, glucose 109, and calcium 7.8. Alkaline phosphatase 154. Total protein 6.8 and albumin 2.5. ASSESSMENT AND PLAN: Acute respiratory failure, COVID-19 infection, community-acquired pneumonia, acute renal failure, paroxysmal atrial fibrillation, diabetes, and anemia with fecal occult blood test positive. RECOMMENDATIONS: Continue current cardiovascular medication. Undergoing LTAC evaluation. Stable H and H, however, not on anticoagulation due to positive fecal occult blood test and previous need for transfusions. MD CHRISTINE Bal/MIKE /[id number]
[2020-07-14] MEDS: FUROSEMIDE INJ 10 MG/ML 4 ML VIAL IV SCH (21:34)
[2020-07-15] VITALS (26 sets, daily range): BP systolic 91–144; BP diastolic 50–81
--- NOTE | 2020-07-15 00:07 | Progress Note ---
DATE: 07/14/2020 SUBJECTIVE: Sedated, cannot give history. OBJECTIVE: VITAL SIGNS: Temperature 99.2, pulse 87, respiratory rate 38, blood pressure 131/68. GENERAL: Sedated. SKIN: No rash. HEENT: Nasogastric tube in place. LUNGS: Decreased breath sounds. HEART: Regular rate and rhythm. Normal S1, S2. GI: Abdomen is soft, nondistended. NEUROLOGIC: Sedated. PSYCHIATRIC: Sedated. LABORATORY DATA: White count 20.6, hemoglobin 8.3, platelet count 234, and creatinine 1.77. ASSESSMENT/PLAN: 1. Acute on chronic respiratory failure due to COVID-19 pneumonia status post tracheostomy. We will continue vent management per tile inspector and continue oral vancomycin per Infectious Disease specialist. We will continue to monitor his white blood cell count. 2. Acute kidney injury, dialysis dependent. We will continue dialysis per Nephrology. The patient is also still on Levophed for shock. 3. Morbid obesity. 4. Paroxysmal atrial fibrillation, currently in sinus rhythm. We will continue amiodarone per Cardiology. 5. GI, DVT prophylaxis. Continue Lovenox. 6. Disposition. LTAC evaluation. Yiching MD [facility]/MIKE /[id number]
[2020-07-15] MEDS: VANCOMYCIN 250MG/5ML ORAL SOLN PO SCH ×4 (00:46→17:06)
[2020-07-15] MEDS: METRONIDAZOLE 500MG/NS 100ML 100 ML IV SCH ×3 (02:00→17:06)
[2020-07-15] MEDS: CEFEPIME 1GM/NS 0.9% 50 ML 50 ML IV SCH ×2 (04:27→16:00)
[2020-07-15] MEDS: ENOXAPARIN SOD INJ 40 MG/0.4 ML SYR SC SCH (04:27)
[2020-07-15] MEDS: FENTANYL 2000MCG/NS 250 250 ML IV PRN ×3 (04:28→22:00)
[2020-07-15] MEDS: NOREPINEPHRINE 8 MG/D5W 250 ML 250 ML IV SCH (06:02)
[2020-07-15 06:18] LABS: BASOPHILS # (AUTO) 0.1 (0.0-0.1); BASOPHILS % 0.4 % (0.0-1.0); EOSINOPHILS # (AUTO) 0.3 (0.0-0.4); EOSINOPHILS % 1.3 % (0.0-6.0); HEMATOCRIT 27.9 % (38.2-49.6); HEMOGLOBIN 8.3 g/dL (14.0-18.0); LYMPHOCYTES # (AUTO) 1.8 (1.0-3.2); LYMPHOCYTES % 8.9 % (18.0-39.1); MEAN CORPUSCULAR HEMOGLOBIN 27.7 pg (28-32); MEAN CORPUSCULAR HGB CONC 29.7 g/dL (31-35); MONOCYTES # (AUTO) 1.6 (0.2-0.8); NEUTROPHILS # (AUTO) 15.4 (2.1-6.9); NEUTROPHILS % 77.2 % (38.7-80.0); PLATELET COUNT 257 x10e3/uL (140-360); RED CELL DISTRIBUTION WIDTH 16.6 % (11.7-14.4)
[2020-07-15 06:36] LABS: ALBUMIN 2.6 g/dL (3.5-5.0); ALBUMIN/GLOBULIN RATIO 0.6 (0.8-2.0); ANION GAP 18.6 mmol/L (8-16); CREATININE, SERUM 1.91 mg/dL (0.72-1.25); MAGNESIUM 1.9 MG/DL (1.3-2.1); PHOSPHORUS 6.9 MG/DL (2.3-4.7); POTASSIUM 4.6 mmol/L (3.5-5.1)
[2020-07-15 07:48] LABS: ABG HCO3 24 mmol/L (22-26); ABG PCO2 42 mmHg (35-45); ABG PH 7.37 (7.35-7.45); ABG PO2 62 mmHg (80-105); ABG TCO2 26
[2020-07-15] MEDS: AMIODARONE HCL 200 MG TAB PO SCH (09:29)
[2020-07-15] MEDS: FUROSEMIDE INJ 10 MG/ML 4 ML VIAL IV SCH ×2 (09:29→20:52)
[2020-07-15] MEDS: COLLAGENASE 5 GM TUBE TP SCH (09:30)
--- NOTE | 2020-07-15 10:26 | Diagnostic Imaging Report ---
EXAMINATION: CHEST SINGLE (PORTABLE) INDICATION: resp failure COMPARISON: Chest radiograph 07/13/2020. FINDINGS: TUBES and LINES: Unchanged position of right upper extremity PICC, right-sided tunneled dual lumen hemodialysis catheter, and tracheostomy tube. Stable position of enteric tube extending beneath the left hemidiaphragm however tip not included in the hlitq-me-cecf. LUNGS: Lungs are well inflated. Unchanged diffuse bilateral interstitial and airspace opacities. PLEURA: Questionable small bilateral pleural effusions. No pneumothorax. HEART AND MEDIASTINUM: The cardiomediastinal silhouette is unchanged. BONES AND SOFT TISSUES: No acute osseous lesion. Soft tissues are unremarkable. UPPER ABDOMEN: No free air under the diaphragm. IMPRESSION: Unchanged diffuse bilateral interstitial and airspace opacities, compatible with multifocal pneumonia and/or pulmonary edema. Unchanged lines and tubes. Signed by: Dr. Luis Cain MD on 07/15/2020 10:23 AM
--- NOTE | 2020-07-15 11:53 | Progress Note ---
DATE: SUBJECTIVE: The patient remains on Levophed at 4 mcg. He is also on Versed and fentanyl as well as rocuronium at 0.04. The patient remains on pressure control mode of ventilation. PHYSICAL EXAMINATION: VITAL SIGNS: Blood pressure is 144/60, saturation is now 100%. He is on a pressure control at a rate of 38 with a PEEP of 8 and FiO2 of 85%. His pressure above PEEP is 34. HEENT: Shows no facial swelling or erythema. There is a tracheostomy site, that looks clean. There is a PICC line in the right side. He also has A-line in place. CARDIAC: Reveals regular rate and rhythm with normal S1, S2. LUNGS: Auscultation of lungs reveals crackles at the bases. There is no wheezing. ABDOMEN: Soft and nontender. There is no rebound or guarding. EXTREMITIES: Shows no leg edema or calf tenderness. There is no cyanosis or clubbing. SKIN: Shows no rashes. NEUROLOGICAL: Shows no focal abnormalities. LABORATORY DATA: BUN to creatinine ratio is 65 to 1.19. The other electrolytes are within normal limits and the albumin is 2.6. White blood cell count is 19.9, hemoglobin is 8.3, and the platelet count is 257,000. RADIOGRAPHIC DATA: Chest x-ray shows bilateral infiltrates. IMPRESSION: 1. Acute respiratory failure. 2. Viral pneumonia and COVID-19 infection. 3. Acute renal failure. 4. Atrial fibrillation. 5. Moderate protein-calorie malnutrition. 6. Colitis. 7. Diabetes. PLAN: 1. Continue current ventilator settings and monitor ABG. 2. Continue Versed and fentanyl, wean rocuronium as tolerated. 3. Wean Levophed as tolerated. 4. Anesthesia is deciding whether or not the patient can tolerate PEG. 5. Complete current antibiotics. 6. Intermittent dialysis. 7. Monitor control blood sugars. 8. Case discussed with nightshift nursing, dayshift nursing, Respiratory, Anesthesiology, Internal Medicine, and daughter. Greater than 35 minutes in direct critical care time apart from any procedures performed. Manuel Quigley MD [facility]/MODL /[id number]
--- NOTE | 2020-07-15 13:09 | Progress Note ---
DATE: 07/15/2020 Renal Progress Note SUBJECTIVE: Events over the past 24 hours have been noted. The patient remains intubated. He remains on the ventilator. He is also on pressor and Levophed. Intake and output, it looks like in the last 24 hours the intake was 696, output 125 and reportedly they removed 2 L with ultrafiltration yesterday. PHYSICAL EXAMINATION: VITAL SIGNS: Blood pressure 98/46. The patient is on Levophed about 6 mcg. The patient is edematous. He is intubated. He has a trach. He is on a ventilator. HEENT: No increased JVD. CARDIOVASCULAR: Regular rate and rhythm. LUNGS: Decreased breath sounds at the bases bilaterally. ABDOMEN: Positive bowel sounds. EXTREMITIES: The patient has edema all over. LABORATORY RESULTS: White count 19, hemoglobin and hematocrit 8 and 28 respectively. Sodium 134, potassium 4.6, chloride 95, bicarbonate 25. BUN and creatinine 65 and 1.9 respectively. Phosphorus 6.9, calcium 8. IMPRESSION: 1. Acute kidney injury. 2. COVID pneumonia. 3. Respiratory failure. 4. Hypotension. 5. Fluid overload. PLAN: The patient was ultrafiltered yesterday, 2 L were removed. Lasix has been started. The patient is very oliguric and the Lasix probably will not help at all. However, we will try no dialysis or ultrafiltrate today. The patient's prognosis is very grim. Ather MD [facility]/MODL /[id number]
--- NOTE | 2020-07-15 13:31 | NUR ---
INFECTIOUS DISEASE PROGRESS NOTE LEIGHANN RUTHERFORD M.D SUBJECTIVE: Mr. Bob remains in intensive care unit, extremely ill. ROS: unable to obtain due to condition D/W ICU team PHYSICAL EXAMINATION: GENERAL: intubated and sedated. VITAL SIGNS: critically ill, currently afebrile. HEENT: He is not icteric. NECK: Supple. no JVD CHEST: Few rhonchi. HEART: S1 and S2. ABDOMEN: Soft. Bowel sounds present. EXTREMITIES: Edema, no joint swelling SKIN: No rash, normal temperature LABORATORY DATA: reviewed RADIOLOGY: reviewed IMPRESSION: 1. Acute respiratory failure. 2. Viral pneumonia and coronavirus disease-19 infection. 3. Acute renal failure. 4. Colitis. 5. Diabetes. 6. Anemia. 7. Moderate protein-calorie malnutrition. 8. Atrial fibrillation. 10. Leukocytosis PLAN Vanco po, added Cefepime and Flagyl still with leukocytosis, but slowly imrpoving weaning off pressor support PEG plans once weaned off levo Sakina Benedict MSN, TECHNICIAN CHEMICAL CLEANING, AGACNP-BC Leighann Rutherford M.D.
[2020-07-15] MEDS: MIDAZOLAM HCL 5MG/ML 10ML VIAL 100 ML IV PRN ×3 (17:07→21:00)
[2020-07-15] MEDS: ROCURONIUM BROMIDE 1,250 MG in SODIUM CHLORIDE 0.9% 250ML 125 ML IV SCH (17:08)
--- NOTE | 2020-07-15 17:40 | Progress Note ---
DATE: 07/15/2020 Cardiology Progress Note. SUBJECTIVE: Remains on vent support and sedated. OBJECTIVE: VITAL SIGNS: Temperature 99.5, heart rate 94, respiratory rate 38, blood pressure 108/52, O2 saturation 96% on vent support. GENERAL: Chronically ill-appearing, eschar of cheeks. NECK: Trach connected to vent. CHEST: Rales and decreased breath sounds. CARDIOVASCULAR: Regular rate and rhythm. Normal S1, S2. ABDOMEN: Soft. EXTREMITIES: Trace edema. CARDIOVASCULAR MEDICATIONS: Reviewed: 1. Furosemide 40 mg every 12 hours. 2. Amiodarone 200 mg daily. 3. Levophed 10 mcg. 4. Lovenox 40 subcu daily. STUDIES: White blood cells 19 trending down, hemoglobin 8.3, platelets 257, creatinine 1.9. ASSESSMENT AND PLAN: A 65-year-old man with COVID-19 infection, acute respiratory failure, community-acquired pneumonia, COVID-19 infection, severe sepsis with septic shock and paroxysmal atrial fibrillation, anemia with fecal occult blood test. RECOMMENDATIONS: Continue current cardiovascular medications. Continue volume optimization per Nephrology. Remains edematous. Wean pressors as tolerated for MAP 65 to 75. Mario Harris MD [facility]/MIKE /[id number]
--- NOTE | 2020-07-15 18:47 | NUR ---
peg tube placement reschedule due to patient bp support with levophed drip per Dr clark. primary and critical are aware. Dr Sheth order tube feed to be resume per order.
--- NOTE | 2020-07-15 21:25 | Progress Note ---
DATE: 07/15/2020 SUBJECTIVE: Sedated, cannot give any history. OBJECTIVE: VITAL SIGNS: Temperature 100.3, pulse 90, respiratory rate 38, and blood pressure 155/54. GENERAL: Sedated. SKIN: No rash. HEENT: Nasogastric tube in place. LUNGS: Decreased breath sounds. HEART: Regular rate and rhythm. Normal S1 and S2. GI: Abdomen soft and nondistended. NEUROLOGIC: Sedated. PSYCHIATRIC: Sedated. LABORATORY DATA: White count 20, hemoglobin 8, and platelet count 257. Creatinine 1.9. ASSESSMENT AND PLAN: 1. [id number] respiratory failure due to COVID-19 pneumonia, status post tracheostomy. We will continue vent management per yacht rigger and continue antibiotic per Infectious Disease specialist. We will monitor his fever along with his white blood cell count. 2. Acute kidney injury, dialysis dependent. We will continue dialysis per Nephrology. The patient is still on Levophed for shock. 3. Morbid obesity. 4. Paroxysmal atrial fibrillation, currently in sinus rhythm. We will continue amiodarone per Cardiology. 5. Gastrointestinal and deep vein thrombosis prophylaxis. We will continue Lovenox. 6. Disposition. LTAC evaluation. Stacyching MD [facility]/MIKE /[id number]
[2020-07-16] VITALS (11 sets, daily range): BP systolic 93–112; BP diastolic 49–56
[2020-07-16] MEDS: VANCOMYCIN 250MG/5ML ORAL SOLN PO SCH ×2 (00:54→06:28)
[2020-07-16] MEDS: METRONIDAZOLE 500MG/NS 100ML 100 ML IV SCH ×2 (02:00→10:49)
[2020-07-16] MEDS: CEFEPIME 1GM/NS 0.9% 50 ML 50 ML IV SCH (04:10)
[2020-07-16] MEDS ORDERED: SODIUM CHLORIDE 0.9% 1000ML 1,000 ML ONE (06:07)
[2020-07-16] MEDS: ENOXAPARIN SOD INJ 40 MG/0.4 ML SYR SC SCH (06:28)
[2020-07-16] MEDS: FENTANYL 2000MCG/NS 250 250 ML IV PRN (06:29)
[2020-07-16] MEDS: MIDAZOLAM HCL 5MG/ML 10ML VIAL 100 ML IV PRN (06:29)
[2020-07-16 06:31] LABS: BASOPHILS # (AUTO) 0.1 (0.0-0.1); BASOPHILS % 0.5 % (0.0-1.0); EOSINOPHILS # (AUTO) 0.1 (0.0-0.4); EOSINOPHILS % 0.4 % (0.0-6.0); HEMATOCRIT 29.5 % (38.2-49.6); HEMOGLOBIN 8.6 g/dL (14.0-18.0); LYMPHOCYTES % 10.5 % (18.0-39.1); MEAN CORPUSCULAR HGB CONC 29.2 g/dL (31-35); MEAN CORPUSCULAR VOLUME 96.1 fL (81-99); MONOCYTES # (AUTO) 2.6 (0.2-0.8); NEUTROPHILS # (AUTO) 21.1 (2.1-6.9); NEUTROPHILS % 72.8 % (38.7-80.0); PLATELET COUNT 350 x10e3/uL (140-360); RED BLOOD COUNT 3.07 x10e6/uL (4.3-5.7); RED CELL DISTRIBUTION WIDTH 17.2 % (11.7-14.4)
[2020-07-16] MEDS ORDERED: ENOXAPARIN SOD INJ 40 MG/0.4 ML SYR SC ONE (06:40)
--- NOTE | 2020-07-16 06:44 | Diagnostic Imaging Report ---
EXAMINATION: CHEST SINGLE (PORTABLE) INDICATION: ^resp failure COMPARISON: 07/15/2020 FINDINGS: AP view TUBES and LINES: Stable tracheostomy tube, enteric tube, right PICC, and right IJ dialysis catheter. LUNGS: Lungs are well inflated. Again seen diffuse bilateral airspace opacities. PLEURA: No pneumothorax. Suspected small left pleural effusion. HEART AND MEDIASTINUM: The cardiomediastinal silhouette is unremarkable. BONES AND SOFT TISSUES: No acute osseous lesion. Soft tissues are unremarkable. UPPER ABDOMEN: No free air under the diaphragm. IMPRESSION: No significant interval change from prior exam. Signed by: Dr. Romeo Maciel MD on 07/16/2020 6:41 AM
[2020-07-16 06:49] LABS: ALBUMIN 2.7 g/dL (3.5-5.0); ALBUMIN/GLOBULIN RATIO 0.6 (0.8-2.0); CALCIUM 8.2 mg/dL (8.4-10.2); CREATININE, SERUM 2.25 mg/dL (0.72-1.25)
[2020-07-16] MEDS ORDERED: SODIUM BICARBONATE 8.4% INJ 50 ML SYR IV STA (06:52)
[2020-07-16 06:54] LABS: ABG HCO3 21 mmol/L (22-26); ABG PCO2 53 mmHg (35-45); ABG PO2 61 mmHg (80-105); ABG TCO2 23
--- NOTE | 2020-07-16 06:55 | NUR ---
Dr. Steven Quigley notified of pt's ABG with pH of 7.19. Vent change ordered noted. 1 amp of bicarb ordered. Also notified MD of possible sepsis being that WBC count went up to 28 from 19, low grade temp throughout night, and that we had to increase pressors throughout dayshift & nightshift. Ordered to get consent for new central line and to remove PICC today. New ordered carried out. Vital signs stable at this time.
[2020-07-16] MEDS ORDERED: SODIUM BICARBONATE 8.4% SYRING 50 ML ONE ×4 (06:58→09:09)
[2020-07-16 07:41] LABS: BAND NEUTROPHILS % (MANUAL) 8 %; LYMPHOCYTES % (MANUAL) 7 % (19-48); METAMYELOCYTES % (MANUAL) 3 % (0-0); MONOCYTES % (MANUAL) 9 % (3.4-9.0); NEUTROPHILS % (MANUAL) 73 % (40-74); NUCLEATED RED BLOOD CELLS 2; RBC MORPHOLOGY COMMENT ABNORMAL
[2020-07-16 07:42] LABS: POLYCHROMASIA FEW
[2020-07-16 07:43] LABS: PLATELET ESTIMATE ADEQUATE; PLATELET MORPHOLOGY COMMENT FEW LARGE
[2020-07-16] MEDS: NOREPINEPHRINE 8 MG/D5W 250 ML 250 ML IV SCH (08:30)
[2020-07-16] MEDS ORDERED: NOREPINEPHRINE 8 MG/D5W 250 ML 250 ML ONE (08:44)
[2020-07-16] MEDS: FUROSEMIDE INJ 10 MG/ML 4 ML VIAL IV SCH (09:00)
[2020-07-16] MEDS: COLLAGENASE 5 GM TUBE TP SCH (09:00)
[2020-07-16] MEDS: AMIODARONE HCL 200 MG TAB PO SCH (09:00)
--- NOTE | 2020-07-16 09:03 | Diagnostic Imaging Report ---
EXAMINATION: CHEST SINGLE (PORTABLE) INDICATION: code blue COMPARISON: 07/16/2020 FINDINGS: AP view TUBES and LINES: Stable tracheostomy tube, enteric tube, right PICC, and right IJ tunneled hemodialysis catheter. LUNGS: Lungs are well inflated. Again seen diffuse bilateral airspace opacities. PLEURA: No pneumothorax. Possible trace bilateral pleural effusions. HEART AND MEDIASTINUM: The cardiomediastinal silhouette is unremarkable. BONES AND SOFT TISSUES: No acute osseous lesion. Soft tissues are unremarkable. UPPER ABDOMEN: No free air under the diaphragm. IMPRESSION: No significant interval change from prior exam. Signed by: Dr. Luis Cain MD on 07/16/2020 9:00 AM
[2020-07-16] MEDS ORDERED: ALBUMIN 25% 12.5GM 50ML 200 ML IV ONE (09:06)
[2020-07-16] MEDS ORDERED: SODIUM BICARBONATE 8.4% SYRING 150 ML in DEXTROSE 5% 1,000 ML IV SCH (09:15)
[2020-07-16] MEDS ORDERED: ALBUMIN 25% 25GM 100ML 0.25 GM/ML BTL IV ONE (09:30)
[2020-07-16] MEDS ORDERED: VASOPRESSIN INJ 20 UNIT/ML VIAL ONE (09:33)
--- NOTE | 2020-07-16 09:42 | Progress Note ---
DATE: 07/16/2020 SUBJECTIVE: The patient is still requiring maximum pressure control and 100% FiO2. This morning, around 8:15, the patient had a cardiopulmonary arrest. He required CPR briefly followed by two amps of epinephrine and two amps of bicarbonate. He is now on Levophed at 14 mcg. He is on pressure control at a rate of 38 with 100% FiO2, 8 of PEEP and a pressure above PEEP of 36. PHYSICAL EXAMINATION: VITAL SIGNS: The patient is febrile, last night to 100.2. His blood pressure is 101/55, on Levophed. His saturation is now 80% on the above side. HEENT: Shows no facial swelling or erythema. There is a tracheostomy tube in good position. The site is clean. There is a right-sided PICC line. CARDIAC: Reveals a regular rate and rhythm with normal S1, S2. LUNGS: Auscultation of the lungs shows decreased breath sounds at the bases. There is no wheezing. ABDOMEN: Soft and nontender. There is no rebound or guarding. EXTREMITIES: Shows no leg edema. LABORATORY DATA: White blood cell count is 28.93 and hemoglobin is 8.9. The platelet count is 350. The GFJ-yb-kaexkaebjj ratio is 78 to 2.25. Carbon dioxide is 21 and the sodium is 132. The albumin is 2.7. Blood gases 7.2, 53, 61, and 21. IMPRESSION: 1. Acute respiratory failure. 2. Cardiopulmonary arrest. 3. Viral pneumonia and COVID-19 infection. 4. Acute renal failure. 5. Moderate protein-calorie malnutrition. 6. Colitis. 7. Leukocytosis. 8. Atrial fibrillation. 9. Diabetes. PLAN: 1. I have discussed the situation with the daughter. She and her mother understand that the patient's status is critical and that he will probably not make it through the day. They are arranging for visitation with administration. 2. Repeat blood gas. 3. Continue Levophed. 4. Continue bicarbonate as needed. 5. Continue current antibiotics. 6. Monitor and control blood sugars. 7. Case discussed with nightshift nursing, dayshift nursing, emergency department staff, and Respiratory, daughter, and Internal Medicine. Greater than 35 minutes in direct critical care time apart from any procedures performed. Manuel Quigley MD [facility]/SHIRLEY[facility] /[id number]
[2020-07-16 09:58] LABS: ABG HCO3 23 mmol/L (22-26); ABG PCO2 62 mmHg (35-45); ABG PH 7.17 (7.35-7.45); ABG PO2 46 mmHg (80-105); ABG TCO2 25
[2020-07-16] MEDS ORDERED: SODIUM CHLORIDE 0.9% 1000ML 1,000 ML IV ONE (10:00)
--- NOTE | 2020-07-16 10:21 | NUR ---
patient coded at 0815 and code blue called. cpr initiated. patient was asystolic, epi and bicarb given and ROSC achieved but patient coded again, atropine. epi and bicarbs was also given and rosc was achieved. patient is now on continuous norepi, vaso and bicarb drip. family ( and Daughter) now at bedside. patient oxygen is now in 50s. Family wants to withdraw care per .
--- NOTE | 2020-07-16 10:40 | NUR ---
Patient's family members to bedside and standing at exterior window and on Facetime. Dr Steven Quigley spoke with family, wish for ice cream freezer helper to come and to withdraw mechanical ventilation and establish comfort measures. Called palliative care consult.
[2020-07-16] MEDS ORDERED: LORAZEPAM INJ 2 MG/ML VIAL IV PRN (10:45)
[2020-07-16] MEDS ORDERED: MORPHINE SULFATE INJ 4 MG/ML INJ 1ML IV PRN (10:45)
--- NOTE | 2020-07-16 10:57 | NUR ---
Chaplain Rangel to bedside.
--- NOTE | 2020-07-16 11:07 | Diagnostic Imaging Report ---
EXAMINATION: CHEST SINGLE (PORTABLE) INDICATION: Check placement COMPARISON: Chest radiograph 07/16/2020. FINDINGS: AP view TUBES and LINES: Stable tracheostomy tube, enteric tube, right PICC, and right IJ tunneled hemodialysis catheter. LUNGS: Lungs are well inflated. Again seen diffuse bilateral airspace opacities. PLEURA: No pneumothorax. Possible trace bilateral pleural effusions. HEART AND MEDIASTINUM: The cardiomediastinal silhouette is unremarkable. BONES AND SOFT TISSUES: No acute osseous lesion. Soft tissues are unremarkable. UPPER ABDOMEN: No free air under the diaphragm. IMPRESSION: Lines and tubes as above. No evidence of pneumothorax. Unchanged bilateral pulmonary opacities, compatible with multifocal pneumonia. Signed by: Dr. Luis Cain MD on 07/16/2020 11:04 AM
--- NOTE | 2020-07-16 11:15 | NUR ---
FAMILY PT REQUEST TAKE VENT OFF.PT AT 1128
--- NOTE | 2020-07-16 11:17 | NUR ---
ASSESSMENT: Spiritual distress Pt's and daughter experiencing anticipatory grief. Pt's and daughter at bedside appropriately expressing grief. Pt's family identify as [employer]ologist. Pt's daughter concurred to begin removal of LST and states, "We know he has already gone." Intervention: Provided calming presence and committal prayer. Provided compassionate touch. Outcome: Pt's family expressed appreciation for support. Followed up w/ [facility]. JACQUE HUYNH Booth Cashier Spiritual Care Department O: [phone]
--- NOTE | 2020-07-16 11:19 | NUR ---
Time fo 1111; Dr Rodriguez and Steven Quigley aware. Called [facility].
--- NOTE | 2020-07-16 11:40 | NUR ---
Chucking Machine Set Up Operator was called to pray with patient and family and patient was taken off life support as per family want. Time of is 11:11 with daughter and at the bedside. pending home arrangement per daughter. Primary Dr notified, critical care team also notified. [facility] called although patient is not a candidate due to covid19 per [facility] personnel.
--- NOTE | 2020-07-16 14:58 | NUR ---
patient body was taken by [facility] customer service representative at 2:55pm with patient daughter at bedside.
[2020-07-16] MEDS ORDERED: MEROPENEM 500MG/ NS 50ML 50 ML IV SCH (21:00)
--- NOTE | 2020-07-17 17:24 | Discharge Summary ---
PRIMARY CARE DOCTOR: Beau Mcknight MD. DATE OF : July 16, 2020. FINAL DIAGNOSIS: Acute respiratory failure due to COVID-19 pneumonia. SECONDARY DIAGNOSES: 1. Hypertension. 2. Morbid obesity. 3. Paroxysmal atrial fibrillation. CONSULTANTS: 1. Dr. Quigley, Pulmonary. 2. Dr. Neumann, Cardiology. 3. Dr. Robertson, Infectious Disease. HISTORY: Per dictated H and P. HOSPITAL COURSE: The patient was on the vent for two months. The patient underwent tracheostomy. Unfortunately despite everything, the patient on July 16, 2020. I have notified his primary care doctor. Stacyching MD ASHWIN Jean-Baptiste/MIKE /[id number] cc: [facility] ([facility]
[2020-07-21] MEDS ORDERED: ATROPINE SULFATE 0.1 MG/ML 10ML SYR ONE (14:05)
[2020-07-21] MEDS ORDERED: SODIUM BICARBONATE 8.4% INJ 50 ML SYR ONE (14:05)
[2020-07-21] MEDS ORDERED: EPINEPHRINE HCL 1:1000 1ML 1 MG/ML AMP ONE (14:05)
== END 2020-07-16 14:59 | disposition expired | DRG 4 ==
LOC: ER 08:06 → ERHOLD 16:04 → ICU 05-06 02:31
PROVIDERS: ADMIT Internal Medicine; ATTEND Internal Medicine
PROC: 8E0ZXY6 Isolation (ICD-10-PCS; 2020-05-03)
PROC: 30243N1 Transfusion of Nonautologous Red Blood Cells into Central Vein, Percutaneous Approach (ICD-10-PCS; 2020-05-03)
PROC: 5A1955Z Respiratory Ventilation, Greater than 96 Consecutive Hours (ICD-10-PCS; principal; 2020-05-11)
PROC: 0BH17EZ Insertion of Endotracheal Airway into Trachea, Via Natural or Artificial Opening (ICD-10-PCS; 2020-05-11)
PROC: 02H633Z Insertion of Infusion Device into Right Atrium, Percutaneous Approach (ICD-10-PCS; 2020-05-11)
PROC: 03HY32Z Insertion of Monitoring Device into Upper Artery, Percutaneous Approach (ICD-10-PCS; 2020-05-12)
PROC: 0BH17EZ Insertion of Endotracheal Airway into Trachea, Via Natural or Artificial Opening (ICD-10-PCS; 2020-06-06)
PROC: 02HV33Z Insertion of Infusion Device into Superior Vena Cava, Percutaneous Approach (ICD-10-PCS; 2020-06-15)
PROC: 0B110F4 Bypass Trachea to Cutaneous with Tracheostomy Device, Open Approach (ICD-10-PCS; 2020-06-30)
PROC: 0JH63XZ Insertion of Tunneled Vascular Access Device into Chest Subcutaneous Tissue and Fascia, Percutaneous Approach (ICD-10-PCS; 2020-07-04)
PROC: 02HV33Z Insertion of Infusion Device into Superior Vena Cava, Percutaneous Approach (ICD-10-PCS; 2020-07-04)
DX: A41.9 Sepsis, unspecified organism (principal); I50.33 Acute on chronic diastolic (congestive) heart failure; U07.1 COVID-19; J12.9 Viral pneumonia, unspecified; J15.9 Unspecified bacterial pneumonia; J96.01 Acute respiratory failure with hypoxia; R65.21 Severe sepsis with septic shock; N17.9 Acute kidney failure, unspecified; E87.0 Hyperosmolality and hypernatremia; B37.49 Other urogenital candidiasis; E87.4 Mixed disorder of acid-base balance; Z68.41 Body mass index [BMI] 40.0-44.9, adult; E44.0 Moderate protein-calorie malnutrition; N40.0 Benign prostatic hyperplasia without lower urinary tract symptoms; I11.0 Hypertensive heart disease with heart failure; E87.6 Hypokalemia; E11.9 Type 2 diabetes mellitus without complications; E78.5 Hyperlipidemia, unspecified; R00.1 Bradycardia, unspecified; H40.9 Unspecified glaucoma; R16.0 Hepatomegaly, not elsewhere classified; E86.9 Volume depletion, unspecified; E66.01 Morbid (severe) obesity due to excess calories; D50.0 Iron deficiency anemia secondary to blood loss (chronic); I48.0 Paroxysmal atrial fibrillation; I46.9 Cardiac arrest, cause unspecified
CPT/HCPCS: 31500; 36415; 36558; 36569; 36600; 70450; 71045; 71260; 74018; 74177; 76705; 76937; 77001; 80048; 80053; 80202; 81001; 81050; 82150; 82270; 82550; 82553; 82805; 82948; 83036; 83690; 83735; 83880; 84100; 84156; 84443; 84484; 85025; 85610; 85730; 86704; 86705; 86706; 86850; 86900; 86920; 87040; 87070; 87071; 87086; 87102; 87205; 87206; 87340; 90962; 92950; 93005; 93306; 93970; 94002; 94003; 94667; 99251; 99285; J0330; J0360; J0456; J0610; J0690; J0692; J0696; J1100; J1450; J1644; J1650; J1940; J2001; J2250; J2370; J2930; J3010; J3370; J3475; J3480; J7030; J7040; J7050; J7060; J7070; J7121; P9016; P9047; Q9967; U0002